=== PATIENT | male | born 1955 | race Caucasian/White ===

== ENCOUNTER 2020-02-14 03:16 | Inpatient (IN) | payer MEDICARE, OTHER ==
[~2020-02-14] VITALS: Ht 188 cm; Wt 74.0 kg
[2020-02-14] VITALS (26 sets, daily range): BP systolic 113–175; BP diastolic 0–75
[2020-02-14 03:50] LABS: BASO % 0 % (0-3); EOS # 0.1 x10^3/uL (0.0-0.7); EOS % 1 % (0-3); HEMATOCRIT 40.4 % (39.0-53.0); HEMOGLOBIN 13.6 g/dL (13.0-17.5); LYMPH # 1.6 x10^3/uL (1.0-4.8); LYMPH % 14 % (24-48); MEAN CORPUSCULAR HEMOGLOBIN 30 pg (25-35); MEAN CORPUSCULAR HGB CONC 34 g/dL (31-37); MEAN CORPUSCULAR VOLUME 88 fL (79-100); MONO % 9 % (0-9); NEUT # 8.6 x10^3/uL (1.8-7.7); NEUT % 76 % (31-73); PLATELET COUNT 226 x10^3/uL (140-400); RED BLOOD COUNT 4.58 x10^6/uL (4.30-5.70); RED CELL DISTRIBUTION WIDTH 13.9 % (11.5-14.5); WHITE BLOOD COUNT 11.3 x10^3/uL (4.0-11.0)
--- NOTE | 2020-02-14 03:52 | RAD ---
STUDY: CT head without contrast INDICATION: Left-sided weakness. COMPARISON: None. TECHNIQUE: Axial CT imaging through the head without the use of intravenous contrast. Sagittal and coronal reformats were obtained. One or more of the following individualized dose reduction techniques were utilized for this examination: 1. Automated exposure control 2. Adjustment of the mA and/or kV according to patient size 3. Use of iterative reconstruction technique. FINDINGS: Acute intraparenchymal hematoma centered within the right thalamus measuring approximately 3.1 cm transverse by 2.5 cm AP by 3.6 cm craniocaudal for a volume of around 14 cc. Intraventricular extension of hemorrhage seen within the significant portion of the right lateral ventricle as well as within the third ventricle, cerebral aqueduct and fourth ventricle. Asymmetric dilatation of the right lateral ventricle temporal horn. The hematoma and associated edema mildly effaces the third ventricle and deviates it to the left and there is also mass effect at the foramen of Prieto. Intracranial atherosclerotic calcifications. Patchy white matter low-attenuation is nonspecific but likely represents the sequela of chronic microvascular ischemic change. IMPRESSION: Acute intraparenchymal hematoma centered within the right thalamus with a volume of approximately 14 cc. Intraventricular extension of hemorrhage filling much of the right lateral ventricle and extending downwards through the fourth ventricle. The hematoma and associated edema exert mass effect on the foramen of Prieto and a portion of the third ventricle. There is asymmetric dilatation of the right lateral ventricle temporal horn in keeping with developing hydrocephalus. FOR INTERNAL CODING PURPOSES Critical result: Findings discussed with MARKO MATAMOROS on 02/14/2020 3:32 AM. RESULT CODE: (C) Electronically signed by: ZACARIAS VÁSQUEZ MD (02/14/2020 3:49 AM) [id number]
[2020-02-14 04:00] LABS: CALCIUM 8.9 mg/dL (8.5-10.1); GFR 75.2; PROTHROMBIN TIME PATIENT 12.8 SEC (11.7-14.0)
[2020-02-14] MEDS ORDERED: ONDANSETRON PF 4 MG/2 ML VIAL. IVP ONE (04:00)
[2020-02-14] MEDS ORDERED: METOCLOPRAMIDE HCL 10 MG/2 ML VIAL. ONE (04:00)
[2020-02-14] MEDS ORDERED: HYDROmorphone 2 MG/ML VIAL ONE (04:02)
[2020-02-14] MEDS ORDERED: diphenhydrAMINE 50 MG/ML VIAL ONE (04:02)
[2020-02-14 04:06] LABS: ALBUMIN 3.3 g/dL (3.4-5.0); ALBUMIN/GLOBULIN RATIO 0.8 (1.0-1.7); TOTAL BILIRUBIN 0.4 mg/dL (0.2-1.0); TOTAL PROTEIN 7.3 g/dL (6.4-8.2)
[2020-02-14] MEDS ORDERED: LIDOCAINE 1% Multi-Dose 20 ML VIAL. ONE (04:11)
--- NOTE | 2020-02-14 04:37 | PHYS DOC ---
Past Medical History Past Medical History: CVA, High Cholesterol Past Surgical History: Other Additional Past Surgical Histo: HERNIA REPAIR Smoking Status: Current Every Day Smoker Alcohol Use: None General Adult EDM: Chief Complaint: NEURO SYMPTOMS/DEFICITS HPI: HPI: The history was obtained from the patient and EMS. Patient is a 64-year-old male with PMH ischemic stroke who presents with a chief complaint of headache and weakness. Per EMS the patient was last known well was 12:00 AM. Appr oximately 3 hours prior to arrival. They state that the patient went to bed around midnight. He woke up at 1230 with a severe headache. He went back to sleep and woke up again approximately half hour prior to arrival. He continued have a severe headache. They state the patient was noted to have left upper extremity left lower extremity weakness. He also noted some facial asymmetry post present. Patient states he does not take any blood thinners. He states he has had a severe headache currently. Denies any falls or trauma. Denies any neck pain. No other complaints with the patient. Review of Systems: Review of Systems: Constitutional: Denies fever or chills. [] Eyes: Denies change in visual acuity. [] HENT: Denies nasal congestion or sore throat. [] Respiratory: Denies cough or shortness of breath. [] Cardiovascular: Denies chest pain or edema. [] GI: Denies abdominal pain, nausea, vomiting, bloody stools or diarrhea. [] : Denies dysuria. [] Musculoskeletal: Denies back pain or joint pain. [] Integument: Denies rash. [] Neurologic: Positive for headache and weakness Endocrine: Denies polyuria or polydipsia. [] Lymphatic: Denies swollen glands. [] Psychiatric: Denies depression or anxiety. [] Heart Score: Risk Factors: Risk Factors: DM, Current or recent (<one month) smoker, HTN, HLP, family history of CAD, obesity. Risk Scores: Score 0 - 3: 2.5% MACE over next 6 weeks - Discharge Home Score 4 - 6: 20.3% MACE over next 6 weeks - Admit for Clinical Observation Score 7 - 10: 72.7% MACE over next 6 weeks - Early Invasive Strategies Current Medications: Current Medications Medications (Trade) Dose Ordered Sig/Fabricio Start Time Stop Time Status Last Admin Dose Admin Diphenhydramine HCl (Benadryl) 50 mg STK-MED ONCE 02/14/20 04:02 02/14/20 04:02 DC Hydromorphone HCl (Dilaudid) 2 mg STK-MED ONCE 02/14/20 04:02 02/14/20 04:03 DC Lidocaine HCl (Lidocaine 1% 20ml Vial) 20 ml STK-MED ONCE 02/14/20 04:11 02/14/20 04:12 DC Metoclopramide HCl (Reglan Vial) 10 mg STK-MED ONCE 02/14/20 04:00 02/14/20 04:00 DC Nicardipine HCl 50 mg/Sodium Chloride 250 ml @ 12.5 mls/hr CONT PRN 02/14/20 03:30 02/14/20 03:48 12.5 MLS/HR Ondansetron HCl (Zofran) 8 mg 1X ONCE 02/14/20 04:00 02/14/20 04:01 DC 02/14/20 03:48 8 MG Allergies: Allergies: Allergies Coded Allergies Type Severity Reaction Last Updated Verified Penicillins Allergy Severe Rash 02/14/20 Yes Physical Exam: PE: Constitutional: Well developed, well nourished, no acute distress, non-toxic a ppearance. [] HENT: Normocephalic, atraumatic, bilateral external ears normal, oropharynx moist, no oral exudates, nose normal. [] Eyes: PERRLA, EOMI, conjunctiva normal, no discharge. [] Neck: Normal range of motion, no tenderness, supple, no stridor. [] Cardiovascular:Heart rate regular rhythm, no murmur [] Lungs & Thorax: Bilateral breath sounds clear to auscultation [] Abdomen: Bowel sounds normal, soft, no tenderness, no masses, no pulsatile masses. [] Skin: Warm, dry, no erythema, no rash. [] Back: No tenderness, no CVA tenderness. [] Extremities: No tenderness, no cyanosis, no clubbing, ROM intact, no edema. [] Neurologic: GCS15 Psychologic: Affect normal, judgement normal, mood normal. [] 1A: Level of consciousness Alert and keenly responsive 0 Arouses to minor stimulation +1 Requires repeated stimulation to arouse +2 Movements to pain +2 Postures are unresponsive +3 1B: Ask month and age Both questions were answered correctly 0 1 question right +1 0 questions were +2 Dysarthric/intubated/trauma/language barrier +1 Aphasic + 2 1C: "Blink eyes and squeeze hands" Performs both tasks 0 Performs one task +1 Perform 0 tasks +2 2: Horizontal extraocular movements Normal 0 Partial gaze palsy: Can be overcome +1 Partial gaze palsy: Corrects with oculocephalic reflex +1 Forced gaze palsy: Cannot be overcome +2 3: Visual bello No visual loss 0 Partial hemianopia +1 Complete hemianopia +2 Patient is bilaterally blind +3 Bilateral hemianopsia +3 4: Facial palsy Normal symmetry 0 Minor paralysis +1 Partial paralysis + 2 Unilateral complete paralysis +3 Bilateral complete paralysis +3 5A: Left arm motor drift No drift for 10 seconds 0 Drift, but does not hit bed + 1 Drift, hits bed + 2 Some effort against gravity +2 No effort against gravity +3 No movement +4 Amputation/joint fusion 0 5B: Right arm motor drift No drift for 10 seconds 0 Drift, but does not hit bed + 1 Drift, hits bed + 2 Some effort against gravity +2 No effort against gravity +3 No movement +4 Amputation/joint fusion 0 6A: Left leg motor drift No drift for 10 seconds 0 Drift, but does not hit bed + 1 Drift, hits bed + 2 Some effort against gravity +2 No effort against gravity +3 No movement +4 Amputation/joint fusion 0 6B: Right leg motor drift No drift for 10 seconds 0 Drift, but does not hit bed + 1 Drift, hits bed + 2 Some effort against gravity +2 No effort against gravity +3 No movement +4 Amputation/joint fusion 0 7: Limb ataxia No ataxia 0 Ataxia in one limb +1 Ataxia in 2 limbs +2 Does not understand 0 Paralyzed 0 Amputation/joint fusion 0 8: Sensation Normal; no sensory loss 0 Mild to moderate loss +1 Complete loss +2 No response and quadriplegic +2 Coma unresponsive +2 9: Language/aphasia Normal; no aphasia 0 Mild to moderate aphasia +1 Severe aphasia + 2 Mute/global aphasia +3 Coma/unresponsive +3 10: Dysarthria Normal 0 Mild to moderate dysarthria +1 Severe dysarthria +2 Mute/anrthric +2 Intubated/unable to test 0 11: Extinction No abnormality 0 Visual/tactile/auditory/spatial/personal inattention +1 Extinction to bilateral simultaneous stimulus +1 Profound joselin-inattention +2 Extinction to greater than 1 modality +2 Current Patient Data: Labs: Laboratory Tests Test 02/14/20 03:30 White Blood Count 11.3 x10^3/uL (4.0-11.0) H Red Blood Count 4.58 x10^6/uL (4.30-5.70) Hemoglobin 13.6 g/dL (13.0-17.5) Hematocrit 40.4 % (39.0-53.0) Mean Corpuscular Volume 88 fL (79-100) Mean Corpuscular Hemoglobin 30 pg (25-35) Mean Corpuscular Hemoglobin Concent 34 g/dL (31-37) Red Cell Distribution Width 13.9 % (11.5-14.5) Platelet Count 226 x10^3/uL (140-400) Neutrophils (%) (Auto) 76 % (31-73) H Lymphocytes (%) (Auto) 14 % (24-48) L Monocytes (%) (Auto) 9 % (0-9) Eosinophils (%) (Auto) 1 % (0-3) Basophils (%) (Auto) 0 % (0-3) Neutrophils # (Auto) 8.6 x10^3/uL (1.8-7.7) H Lymphocytes # (Auto) 1.6 x10^3/uL (1.0-4.8) Monocytes # (Auto) 1.0 x10^3/uL (0.0-1.1) Eosinophils # (Auto) 0.1 x10^3/uL (0.0-0.7) Basophils # (Auto) 0.0 x10^3/uL (0.0-0.2) Prothrombin Time 12.8 SEC (11.7-14.0) Prothrombin Time INR 1.0 (0.8-1.1) Sodium Level 140 mmol/L (136-145) Potassium Level 4.0 mmol/L (3.5-5.1) Chloride Level 106 mmol/L (98-107) Carbon Dioxide Level 28 mmol/L (21-32) Anion Gap 6 (6-14) Blood Urea Nitrogen 18 mg/dL (8-26) Creatinine 1.0 mg/dL (0.7-1.3) Estimated GFR (Cockcroft-Gault) 75.2 BUN/Creatinine Ratio 18 (6-20) Glucose Level 119 mg/dL (70-99) H Calcium Level 8.9 mg/dL (8.5-10.1) Total Bilirubin 0.4 mg/dL (0.2-1.0) Aspartate Amino Transferase (AST) 17 U/L (15-37) Alanine Aminotransferase (ALT) 18 U/L (16-63) Alkaline Phosphatase 109 U/L (46-116) Troponin I Quantitative < 0.017 ng/mL (0.000-0.055) Total Protein 7.3 g/dL (6.4-8.2) Albumin 3.3 g/dL (3.4-5.0) L Albumin/Globulin Ratio 0.8 (1.0-1.7) L Laboratory Tests 02/14/20 03:30 Laboratory Tests 02/14/20 03:30 Vital Signs: Vital Signs Date Time Temp Pulse Resp B/P (MAP) Pulse Ox O2 Delivery O2 Flow Rate FiO2 02/14/20 03:50 97.4 19 227/102 (143) 94 Room Air 97.4 EKG: EKG: EKG consistent with normal sinus rhythm. Ventricular rate 75 bpm. [place] normal. Flipped T waves noted in lead III. No acute ST segment elevation appreciated. [] Radiology/Procedures: Radiology/Procedures: [][facility] [address] [place] [address] IMAGING REPORT Signed PATIENT: ELLA MUÑIZ ACCOUNT: [id number] : 1955 LOCATION: ER AGE: 64 SEX: M EXAM STATUS: REG ER ORD. PHYSICIAN: KILLIAN NOVAK DO REASON: LUE weakness. LLE weakness. hemineglect on left PROCEDURE: CT CODE STROKE HEAD WO STUDY: CT head without contrast INDICATION: Left-sided weakness. COMPARISON: None. TECHNIQUE: Axial CT imaging through the head without the use of intravenous contrast. Sagittal and coronal reformats were obtained. One or more of the following individualized dose reduction techniques were utilized for this examination: 1. Automated exposure control 2. Adjustment of the mA and/or kV according to patient size 3. Use of iterative reconstruction technique. FINDINGS: Acute intraparenchymal hematoma centered within the right thalamus measuring approximately 3.1 cm transverse by 2.5 cm AP by 3.6 cm craniocaudal for a volume of around 14 cc. Intraventricular extension of hemorrhage seen within the significant portion of the right lateral ventricle as well as within the third ventricle, cerebral aqueduct and fourth ventricle. Asymmetric dilatation of the right lateral ventricle temporal horn. The hematoma and associated edema mildly effaces the third ventricle and deviates it to the left and there is also mass effect at the foramen of Prieto. Intracranial atherosclerotic calcifications. Patchy white matter low-attenuation is nonspecific but likely represents the sequela of chronic microvascular ischemic change. IMPRESSION: Acute intraparenchymal hematoma centered within the right thalamus with a volume of approximately 14 cc. Intraventricular extension of hemorrhage filling much of the right lateral ventricle and extending downwards through the fourth ventricle. The hematoma and associated edema exert mass effect on the foramen of Prieto and a portion of the third ventricle. There is asymmetric dilatation of the right lateral ventricle temporal horn in keeping with developing hydrocephalus. FOR INTERNAL CODING PURPOSES Critical result: Findings discussed with KILLIAN NOVAK on 02/14/2020 3:32 AM. RESULT CODE: (C) Electronically signed by: ZACARIAS VÁSQUEZ MD (02/14/2020 3:49 AM) [id number] DICTATED and SIGNED BY: ZACARIAS VÁSQUEZ MD DATE: 02/14/20 0349 Radial arterial line placement procedure note Left radial arterial line placement. Indication: Hemodynamic monitoring Physician: Dr. Novak Consent: From patient Procedure: Timeout performed. Nigel's test performed on the left radial artery and showed good collaterals. The area was then prepped and draped in sterile fashion. Using the Arrow 20-gauge radial artery cath set, the artery was cannulated with ultrasound guidance. The catheter was threaded over the guidewire via Seldinger technique and sutured in place with silk sutures; the area then cleansed again and dressed with tape to secure. Tegaderm dressing als o placed. The arterial line tubing was placed to the arterial line. The patient status is unchanged. Patient tolerated the procedure without any complications. The hand is neurovascular intact immediately post procedure. Estimated blood loss minimal. Endotracheal Intubation Procedure Note Procedure: Endotracheal intubation Indication: Acute Respiratory Failure secondary to neurologic injury Consent: Verbal obtained from family Procedure: The patient was placed in the supine position and pre-oxygenated with 100% oxygen via BVM. Sedation was given with etomidate. Using a glide sc ope for blade, the cords were visualized; an 7.5 tube was able to be passed through the cords with direct visualization. Condensation was seen in the tube; bilateral breath-sounds were present, with none auscultated over the abdomen; good color change was present on EtCO2 detector. A CXR is ordered to cofirm placement. The ETT was secured at 24 cm at the lips. Mechanical ventilation is initiated at A/C, Vt 500 ml, 100% FiO2, rate 22, PEEP 5. The patient tolerated procedure without immediate complication. Killian Novak, Course & Med Decision Making: Course & Med Decision Making Pertinent Labs and Imaging studies reviewed. (See chart for details) Patient is a 64-year-old male who presents with chief complaint of headache and left-sided weakness. Initial vital signs notable for hypertension. CT imaging reveals intermingled hemorrhage with right ventricular involvement. I did discuss the case specifically with the neurosurgical PA Rosa. She spoke directly with neurosurgeon Dr. Aguayo. No emergent indication for EVD or operative intervention. Patient's blood pressure was well controlled nicardipine. No anticoagulation usage needing reversal. The mode pain will be deferred per the recommendations of neurosurgery. Patients head of bed was placed at 30 degrees. He did have his pain treated with IV Reglan, Benadryl, and Dilaudid. His GCS remained 15 while in the emergency department. He showed no signs of clinical, neuro, or respiratory deterioration. Left radial art line was placed for ICU usage and close hemodynamic monitoring. She tolerated this procedure well without difficulty. See procedure note for further details. Patient is appropriate to stay at our facility per Dr. Vásquez. He will be hospitalized to the intensive care unit. Family was updated on plan of care. 0445: Patient's GCS did slowly deteriorate. He became more somnolent. He did appear to become more a phasic. I did discuss my concern for his ability to protect his airway at this point. Family did provide consent to intubate the patient. See procedure note for further details. Patient's blood pressure is been well controlled. Neurosurgery was updated on the patient's status change. He will be hospitalized to our ICU for further care. Dragon Disclaimer: Dragon Disclaimer: This electronic medical record was generated, in whole or in part, using a voice recognition dictation system. Departure Departure Impression: Primary Impression: Intraparenchymal hemorrhage of brain Disposition: ADMITTED INPATIENT Condition: STABLE Referrals: NO PCP (PCP) Justicifation of Admission Dx: Justifications for Admission: Justification of Admission Dx: Yes Acute Hemorrhagic Stroke: Acute Hemorrhagic Stroke KILLIAN NOVAK DO Feb 14, 2020 04:37
[2020-02-14] MEDS ORDERED: MORPHINE SULFATE 4 MG/ML VIAL. IV PRN (04:45)
[2020-02-14] MEDS ORDERED: ONDANSETRON PF 4 MG/2 ML VIAL. IV PRN (04:45)
[2020-02-14] MEDS ORDERED: fentaNYL PF VIAL 100 MCG/2 ML VIAL IVP ONE ×3 (05:00→07:30)
[2020-02-14] MEDS ORDERED: ETOMIDATE 20 MG/10 ML VIAL. IV ONE (05:00)
[2020-02-14] MEDS ORDERED: ROCURONIUM 50 MG/5 ML VIAL. IV ONE (05:00)
[2020-02-14] MEDS ORDERED: PROPOFOL 10 MG/ML (20ML) VIAL. IV ONE ×2 (05:02→05:30)
[2020-02-14] MEDS ORDERED: PROPOFOL 50 ML IV ONE (05:03)
[2020-02-14] MEDS: PROPOFOL 100 ML IV PRN ×2 (06:38→11:30)
[2020-02-14] MEDS ORDERED: LIDOCAINE 1% PF 2 ML VIAL. ONE (06:43)
[2020-02-14] MEDS: VANCOMYCIN 1GM IVPB FOR OMNI 250 ML IV PRN ×2 (06:46→06:48)
[2020-02-14] MEDS ORDERED: ceFAZolin 2GM PREMIX 2 GM/50 ML BAG IV ONE (07:00)
--- NOTE | 2020-02-14 07:20 | NUR ---
Admission Note: Patient admitted to room 108 from ED. Pt sedated and intubated. CLINICAL PROGRAM CONSULTANT Rosa and Dr. Jones here upon transfer from ED to place drain. Pt currently on Cardene gtt, propofol gtt. L radial A line in place, pressure bag applied. Sebastian placed in ED and draining clear yellow urine. SR on monitor.
[2020-02-14] MEDS ORDERED: fentaNYL PF VIAL 100 MCG/2 ML VIAL IV PRN ×2 (07:30)
--- NOTE | 2020-02-14 07:52 | RAD ---
CHEST AP ONLY, KUB INDICATION: Reason: confirm ET/NG / Spl. Instructions: / History: . COMPARISON STUDY: None. FINDINGS: Endotracheal tube terminus 5 cm above the mike. Enteric tube terminates in the stomach Lungs: Normal lung volume. Bibasilar heterogeneous opacities. The tracheobronchial tree and hilar structures are normal. Pleura: No pleural effusion or pneumothorax. Heart and Mediastinum: The cardiomediastinal silhouette is normal. The great vessels of the thorax are normal. Abdomen: No free air. No dilated large or small bowel. IMPRESSION: 1. Life-support devices as above. 2. Bibasilar heterogeneous opacities, which could represent subsegmental atelectasis, infection, or aspiration. Electronically signed by: Jai Lunsford MD (02/14/2020 7:49 AM) [id number]
--- NOTE | 2020-02-14 08:55 | PDOC1 ---
History and Physical Date of Admission Date of Admission DATE: 02/14/20 TIME: 08:55 Identification/Chief Complaint Chief Complaint ADMITTED TO ICU 64-year-old male with PMH ischemic stroke who presents with a chief complaint of headache and weakness. ACCORDING TO EMS the patient was last known well was 12:00 AM. Approximately 3 hours prior to arrival. patient went to bed around midnight. //woke up at 1230 with a severe headache. He went back to sleep and woke up again approximately half hour prior to arrival. continued have a severe headache. They state the patient was noted to have left upper extremity left lower extremity weakness.//noted some facial asymmetry Past Medical History Past Medical History Past Medical History Past Medical History: CVA, High Cholesterol Past Surgical History: Other Additional Past Surgical Histo: HERNIA REPAIR Smoking Status: Current Every Day Smoker Alcohol Use: None fhx copd Family History Family History: High Cholestrol, Hypertension Social History Smoke: No ALCOHOL: none Drugs: None Current Problem List Problem List Problems Medical Problems: (1) Intraparenchymal hemorrhage of brain Status: Acute Current Medications Current Medications Current Medications Nicardipine HCl 50 mg/Sodium Chloride 250 ml @ 12.5 mls/hr CONT PRN IV SEE I/O RECORD Last administered on 02/14/20at 03:48; Start 02/14/20 at 03:30 Ondansetron HCl (Zofran) 8 mg 1X ONCE IVP Last administered on 02/14/20at 03:48; Start 02/14/20 at 04:00; Stop 02/14/20 at 04:01; Status DC Metoclopramide HCl (Reglan Vial) 10 mg STK-MED ONCE .ROUTE ; Start 02/14/20 at 04:00; Stop 02/14/20 at 04:00; Status DC Diphenhydramine HCl (Benadryl) 50 mg STK-MED ONCE .ROUTE ; Start 02/14/20 at 04:02; Stop 02/14/20 at 04:02; Status DC Hydromorphone HCl (Dilaudid) 2 mg STK-MED ONCE .ROUTE ; Start 02/14/20 at 04:02; Stop 02/14/20 at 04:03; Status DC Lidocaine HCl (Lidocaine 1% 20ml Vial) 20 ml STK-MED ONCE .ROUTE ; Start 02/14/20 at 04:11; Stop 02/14/20 at 04:12; Status DC Ondansetron HCl (Zofran) 4 mg PRN Q8HRS PRN IV NAUSEA/VOMITING 1ST CHOICE; Start 02/14/20 at 04:45; Stop 02/15/20 at 04:44 Morphine Sulfate (Morphine Sulfate) 4 mg PRN Q2HR PRN IV SEVERE PAIN 7-10; Start 02/14/20 at 04:45; Stop 02/15/20 at 04:44 Rocuronium [place] (Zemuron) 100 mg 1X ONCE IV Last administered on 02/14/20at 04:56; Start 02/14/20 at 05:00; Stop 02/14/20 at 05:01; Status DC Etomidate (Amidate) 20 mg 1X ONCE IV Last administered on 02/14/20at 04:56; Start 02/14/20 at 05:00; Stop 02/14/20 at 05:01; Status DC Fentanyl Citrate (Fentanyl 2ml Vial) 100 mcg 1X ONCE IVP Last administered on 02/14/20at 04:55; Start 02/14/20 at 05:00; Stop 02/14/20 at 05:01; Status DC Propofol (Diprivan) 200 mg STK-MED ONCE IV ; Start 02/14/20 at 05:02; Stop 02/14/20 at 05:03; Status DC Propofol 50 ml @ As Directed STK-MED ONCE IV ; Start 02/14/20 at 05:03; Stop 02/14/20 at 05:03; Status DC Propofol (Diprivan) 200 mg 1X ONCE IV ; Start 02/14/20 at 05:30; Stop 02/14/20 at 05:31; Status DC Vancomycin HCl 250 ml @ 250 mls/hr PREOP PRN PRN IV PREOP Last administered on 02/14/20at 06:48; Start 02/14/20 at 06:00; Stop 02/15/20 at 05:59 Propofol 100 ml @ 0 mls/hr CONT PRN IV SEE I/O RECORD Last administered on 02/14/20at 06:38; Start 02/14/20 at 06:30 Fentanyl Citrate (Fentanyl 2ml Vial) 50 mcg 1X ONCE IVP Last administered on 02/14/20at 06:48; Start 02/14/20 at 07:00; Stop 02/14/20 at 07:01; Status DC Lidocaine HCl (Xylocaine-Mpf 1% 2ml Vial) 2 ml STK-MED ONCE .ROUTE ; Start 02/14/20 at 06:43; Stop 02/14/20 at 06:43; Status DC Fentanyl Citrate (Fentanyl 2ml Vial) 50 mcg 1X ONCE IVP Last administered on 02/14/20at 07:23; Start 02/14/20 at 07:30; Stop 02/14/20 at 07:31; Status DC Fentanyl Citrate 30 ml @ 2.5 mls/hr CONT PRN IV SEE PROTOCOL Last administered on 02/14/20at 07:43; Start 02/14/20 at 07:30 Fentanyl Citrate (Fentanyl 2ml Vial) 25 mcg PRN Q1HR PRN IV SEE COMMENTS; Start 02/14/20 at 07:30 Fentanyl Citrate (Fentanyl 2ml Vial) 50 mcg PRN Q1HR PRN IV SEE COMMENTS; Start 02/14/20 at 07:30 Allergies Allergies: Coded Allergies: Penicillins (Verified Allergy, Severe, Rash, 02/14/20) ROS Review of System Constitutional: Denies fever or chills. [] Eyes: Denies change in visual acuity. [] HENT: Denies nasal congestion or sore throat. [] Respiratory: Denies cough or shortness of breath. [] Cardiovascular: Denies chest pain or edema. [] GI: Denies abdominal pain, nausea, vomiting, bloody stools or diarrhea. [] : Denies dysuria. [] Musculoskeletal: Denies back pain or joint pain. [] Integument: Denies rash. [] Neurologic: Positive for headache and weakness Endocrine: Denies polyuria or polydipsia. [] Lymphatic: Denies swollen glands. [] Psychiatric: Denies depression or anxiety. [] prior to intubation Physical Exam Physical Exam non-toxic appearance. [] HENT: Normocephalic, atraumatic, bilateral external ears normal, oropharynx moist, no oral exudates, nose normal. [] Eyes: PERRLA, EOMI, conjunctiva normal, no discharge. [] Neck: Normal range of motion, no tenderness, supple, no stridor. [] Cardiovascular:Heart rate regular rhythm, no murmur [] Lungs & Thorax: Bilateral breath sounds clear to auscultation [] Abdomen: Bowel sounds normal, soft, no tenderness, no masses, no pulsatile masses. [] Skin: Warm, dry, no erythema, no rash. [] Back: No tenderness, no CVA tenderness. [] Extremities: No tenderness, no cyanosis, no clubbing, ROM intact, no edema. [] Neurologic: GCS15 Vitals Vitals Vital Signs Date Time Temp Pulse Resp B/P (MAP) Pulse Ox O2 Delivery O2 Flow Rate FiO2 02/14/20 07:00 62 16 165/73 (103) 100 Ventilator 02/14/20 06:15 98.2 98.2 Labs Labs Laboratory Tests Test 02/14/20 03:21 02/14/20 03:30 Glucose (Fingerstick) 119 mg/dL (70-99) White Blood Count 11.3 x10^3/uL (4.0-11.0) Red Blood Count 4.58 x10^6/uL (4.30-5.70) Hemoglobin 13.6 g/dL (13.0-17.5) Hematocrit 40.4 % (39.0-53.0) Mean Corpuscular Volume 88 fL (79-100) Mean Corpuscular Hemoglobin 30 pg (25-35) Mean Corpuscular Hemoglobin Concent 34 g/dL (31-37) Red Cell Distribution Width 13.9 % (11.5-14.5) Platelet Count 226 x10^3/uL (140-400) Neutrophils (%) (Auto) 76 % (31-73) Lymphocytes (%) (Auto) 14 % (24-48) Monocytes (%) (Auto) 9 % (0-9) Eosinophils (%) (Auto) 1 % (0-3) Basophils (%) (Auto) 0 % (0-3) Neutrophils # (Auto) 8.6 x10^3/uL (1.8-7.7) Lymphocytes # (Auto) 1.6 x10^3/uL (1.0-4.8) Monocytes # (Auto) 1.0 x10^3/uL (0.0-1.1) Eosinophils # (Auto) 0.1 x10^3/uL (0.0-0.7) Basophils # (Auto) 0.0 x10^3/uL (0.0-0.2) Prothrombin Time 12.8 SEC (11.7-14.0) Prothromb Time International Ratio 1.0 (0.8-1.1) Sodium Level 140 mmol/L (136-145) Potassium Level 4.0 mmol/L (3.5-5.1) Chloride Level 106 mmol/L (98-107) Carbon Dioxide Level 28 mmol/L (21-32) Anion Gap 6 (6-14) Blood Urea Nitrogen 18 mg/dL (8-26) Creatinine 1.0 mg/dL (0.7-1.3) Estimated GFR (Cockcroft-Gault) 75.2 BUN/Creatinine Ratio 18 (6-20) Glucose Level 119 mg/dL (70-99) Calcium Level 8.9 mg/dL (8.5-10.1) Total Bilirubin 0.4 mg/dL (0.2-1.0) Aspartate Amino Transf (AST/SGOT) 17 U/L (15-37) Alanine Aminotransferase (ALT/SGPT) 18 U/L (16-63) Alkaline Phosphatase 109 U/L (46-116) Troponin I Quantitative < 0.017 ng/mL (0.000-0.055) Total Protein 7.3 g/dL (6.4-8.2) Albumin 3.3 g/dL (3.4-5.0) Albumin/Globulin Ratio 0.8 (1.0-1.7) Laboratory Tests Test 02/14/20 03:21 02/14/20 03:30 Glucose (Fingerstick) 119 mg/dL (70-99) White Blood Count 11.3 x10^3/uL (4.0-11.0) Red Blood Count 4.58 x10^6/uL (4.30-5.70) Hemoglobin 13.6 g/dL (13.0-17.5) Hematocrit 40.4 % (39.0-53.0) Mean Corpuscular Volume 88 fL (79-100) Mean Corpuscular Hemoglobin 30 pg (25-35) Mean Corpuscular Hemoglobin Concent 34 g/dL (31-37) Red Cell Distribution Width 13.9 % (11.5-14.5) Platelet Count 226 x10^3/uL (140-400) Neutrophils (%) (Auto) 76 % (31-73) Lymphocytes (%) (Auto) 14 % (24-48) Monocytes (%) (Auto) 9 % (0-9) Eosinophils (%) (Auto) 1 % (0-3) Basophils (%) (Auto) 0 % (0-3) Neutrophils # (Auto) 8.6 x10^3/uL (1.8-7.7) Lymphocytes # (Auto) 1.6 x10^3/uL (1.0-4.8) Monocytes # (Auto) 1.0 x10^3/uL (0.0-1.1) Eosinophils # (Auto) 0.1 x10^3/uL (0.0-0.7) Basophils # (Auto) 0.0 x10^3/uL (0.0-0.2) Prothrombin Time 12.8 SEC (11.7-14.0) Prothromb Time International Ratio 1.0 (0.8-1.1) Sodium Level 140 mmol/L (136-145) Potassium Level 4.0 mmol/L (3.5-5.1) Chloride Level 106 mmol/L (98-107) Carbon Dioxide Level 28 mmol/L (21-32) Anion Gap 6 (6-14) Blood Urea Nitrogen 18 mg/dL (8-26) Creatinine 1.0 mg/dL (0.7-1.3) Estimated GFR (Cockcroft-Gault) 75.2 BUN/Creatinine Ratio 18 (6-20) Glucose Level 119 mg/dL (70-99) Calcium Level 8.9 mg/dL (8.5-10.1) Total Bilirubin 0.4 mg/dL (0.2-1.0) Aspartate Amino Transf (AST/SGOT) 17 U/L (15-37) Alanine Aminotransferase (ALT/SGPT) 18 U/L (16-63) Alkaline Phosphatase 109 U/L (46-116) Troponin I Quantitative < 0.017 ng/mL (0.000-0.055) Total Protein 7.3 g/dL (6.4-8.2) Albumin 3.3 g/dL (3.4-5.0) Albumin/Globulin Ratio 0.8 (1.0-1.7) Images Images STUDY: CT head without contrast INDICATION: Left-sided weakness. COMPARISON: None. TECHNIQUE: Axial CT imaging through the head without the use of intravenous contrast. Sagittal and coronal reformats were obtained. One or more of the following individualized dose reduction techniques were utilized for this examination: 1. Automated exposure control 2. Adjustment of the mA and/or kV according to patient size 3. Use of iterative reconstruction technique. FINDINGS: Acute intraparenchymal hematoma centered within the right thalamus measuring approximately 3.1 cm transverse by 2.5 cm AP by 3.6 cm craniocaudal for a volume of around 14 cc. Intraventricular extension of hemorrhage seen within the significant portion of the right lateral ventricle as well as within the third ventricle, cerebral aqueduct and fourth ventricle. Asymmetric dilatation of the right lateral ventricle temporal horn. The hematoma and associated edema mildly effaces the third ventricle and deviates it to the left and there is also mass effect at the foramen of Prieto. Intracranial atherosclerotic calcifications. Patchy white matter low-attenuation is nonspecific but likely represents the sequela of chronic microvascular ischemic change. IMPRESSION: Acute intraparenchymal hematoma centered within the right thalamus with a volume of approximately 14 cc. Intraventricular extension of hemorrhage filling much of the right lateral ventricle and extending downwards through the fourth ventricle. The hematoma and associated edema exert mass effect on the foramen of Prieto and a portion of the third ventricle. There is asymmetric dilatation of the right lateral ventricle temporal horn in keeping with developing hydrocephalus. FOR INTERNAL CODING PURPOSES Critical result: Findings discussed with MARKO MATAMOROS on 02/14/2020 3:32 AM. RESULT CODE: (C) Electronically signed by: ZACARIAS VÁSQUEZ MD (02/14/2020 3:49 AM) [id number] DICTATED and SIGNED BY: ZACARIAS VÁSQUEZ MD VTE Prophylaxis Ordered VTE Prophylaxis Devices: Yes VTE Pharmacological Prophylaxi: Contraindicated Assessment/Plan Assessment/Plan IMPRESSION: Intraparenchymal hemorrhage of brain Acute intraparenchymal hematoma centered within the right thalamus with a volume of approximately 14 cc. Intraventricular extension of hemorrhage filling much of the right lateral ventricle and extending downwards through the fourth ventricle.hematoma and associated edema exert mass effect on the foramen of Prieto and a portion of the third ventricle. dilatation of the right lateral ventricle temporal horn developing hydrocephalus. PLAN ADMIT ICU Consult neurosurgery vent support consult pulmonary consult neurology Justifications for Admission Other Justification FULBRIGHT,ROSA W MD Feb 14, 2020 08:55
--- NOTE | 2020-02-14 09:44 | CONS ---
DATE OF CONSULTATION: 02/14/2020 REASON FOR CONSULTATION: Intracerebral and intraventricular hemorrhage. PROCEDURE PERFORMED: Right frontal ventriculostomy placement. HISTORY OF PRESENT ILLNESS: The patient is a 64-year-old man who presented with headache and weakness. When he was evaluated in the Emergency Room, he had a significant left-sided weakness in upper and lower extremities. There was also some facial asymmetry on the left. He is not taking any anticoagulants. A scan was obtained, which showed a right-sided basal ganglia hemorrhage of moderate to large sized with extension into the ventricular system, primarily on the right, but also within the third and fourth ventricles. He was scheduled to be brought over to the ICU when he deteriorated and required intubation. I arrived in the ICU as he was being brought here and after reviewing the scans, felt that a ventriculostomy would be in order. I did speak with the family and received approval. He was given vancomycin prior to the procedure. I placed a standard right frontal ventriculostomy although I did direct further to the left in order to enter the left ventricle because the right ventricle was filled with blood. There was spontaneous egress of spinal fluid. The catheter was connected to the monitor and the pressure was about 9 cm of water. At any rate, during the time of his evaluation in the Intensive Care Unit, his pupils were equal and reactive as well his cough and gag were intact. He would move his right upper and right lower extremity, his right upper extremity would move purposefully, for example, trying to grasp the endotracheal tube. He did have severe hypertension in the Emergency Room and was placed on Cardene to bring that under control. PLAN: At this point, he is stable. With the ventriculostomy, the pressure is about 9 cm of water. He is set to drain. He is sedated. We will obtain a CT scan to evaluate placement of the ventricular catheter and then potentially we will be able to wean the ventilator as tolerated. KELLI JOY MD DR: JOEL/dean JOB#: [id number] / [id number] RONALD
[2020-02-14 09:50] LABS: BASE EXCESS ABG -1 mmol/L (-3-3); HCO3 ABG 25 mmol/L (21-28); PCO2 ABG 43 mmHg (35-46); PO2 ABG 450 mmHg (65-108); SAT O2 ABG 99 % (92-99)
[2020-02-14 09:54] LABS: FIO2 ABG 100
--- NOTE | 2020-02-14 10:11 | RAD ---
CT HEAD WO CONTRAST History:Intracranial hemorrhage Comparison: Exam earlier the same day at 3:23 AM, this exam timed 8:33 AM Technique: Noncontrast CT imaging was performed of the head. Exposure: One or more of the following individualized dose reduction techniques were utilized for this examination: 1. Automated exposure control 2. Adjustment of the mA and/or kV according to patient size 3. Use of iterative reconstruction technique. Findings: There is now a right transfrontal shunt with the tip terminating to the left of midline in the left superior prepontine cistern region. There is again intraventricular hemorrhage filling the right lateral ventricle and third ventricle, also extent to the fourth ventricle. There is increased intraventricular hemorrhage in the left lateral ventricle. There is persistent, somewhat increased moderate ventriculomegaly/hydrocephalus. For example right lateral ventricle measures about 1.6 cm versus previously 1.5 cm. Left lateral ventricle measures about 1.7 cm versus previously about 1.2 cm. There is again dilatation of the temporal horns bilaterally right greater than left, also greater. There is again hyperdense parenchymal hemorrhage in the right thalamus about 3.4 cm transverse by 2.8 cm AP, somewhat larger as previously 3.1 cm transverse by 2.2 cm AP. There is increased mild right to left midline shift now about 0.6 cm, previously about 0.3 to 0.4 cm. No new separate focus of parenchymal hemorrhage is identified. There is again low-density of the parenchyma about the right thalamic hemorrhage, evidence of vasogenic edema. There is endotracheal tube. Mastoid air cells are aerated. IMPRESSION: 1. There is now a right transfrontal shunt with the tip terminating in the left superior prepontine cistern region. Hydrocephalus has increased. Right lobe left midline shift has increased. There is increased intraventricular hemorrhage most notable in the left lateral ventricle. Right thalamic parenchymal hemorrhage is somewhat larger. Critical results were discussed with patient's nurse Yamilka at 02/14/2020 10:07 AM. Electronically signed by: Jai Nelson MD (02/14/2020 10:08 AM) [id number]
[2020-02-14 10:49] LABS: BILIRUBIN,URINE NEGATIVE (NEG); CLARITY,URINE CLEAR; COLOR,URINE YELLOW; NITRITE,URINE NEGATIVE (NEG); PROTEIN,URINE NEGATIVE (NEG-TRACE)
[2020-02-14 11:10] LABS: BACTERIA,URINE 0 /HPF (0-FEW); WBC,URINE 0 /HPF (0-4)
[2020-02-14] MEDS: POTASSIUM CL 20MEQ D5-0.45NACL 1,000 ML IV SCH (12:45)
--- NOTE | 2020-02-14 12:48 | NUR ---
Spoke with family regarding update on condition post ventriculostomy drain placement. Head CT was worsening, called by radiologist, notified Rosa MARSHMALLOW MACHINE WORKER with Dr. Jones who was already aware and that Dr. Jones was on his way to reposition the ventriculostomy drain. Drain was adjusted at bedside by Dr. Jones, repeat head CT ordered. Drain was zeroed to tragus of the ear, was adjusted by Dr. Jones at bedside, still draining for ICP >10. Also notified Dr. Jones of elevated urine output despite minimal input. Updated family via telephone contact. Notified [facility], referral number [id number], will follow patient from [facility] for now. Neurologically patient has changed throughout the shift. Patient started out the shift with a fixed left pupil but a sluggish right pupil, about the same size. Patient was able to withdraw to pain in all extremities besides the left upper extremity which was flaccid, now patient has an abnormal extensor response in the left hand and an abnormal flexor response in the right hand. The bilateral lower extremities cause a tremor in the legs and left arm with painful stimuli. Patient has no cough or gag reflexes, does not overbreathe the ventilator, but does have a corneal reflex. Will continue to monitor.
--- NOTE | 2020-02-14 14:16 | RAD ---
CT HEAD WO CONTRAST Date: 02/14/2020 11:23 AM Clinical Indication: Follow up ventricular catheter placement Comparison: 02/14/2020. Technique: 5 mm axial tomographic images were obtained of the head without contrast. These were viewed on brain and bone windows. One or more of the following dose reduction techniques were utilized: Automated exposure control (AEC), Adjustment of mA and/or kV according to patient size, Use of iterative reconstruction technique such as ASiR, CT scan done according to ALARA and image gently/image wisely Findings: Postsurgical changes of a right frontal approach ventricular shunt catheter with tip terminating in the midline near the suprasellar cistern. Stable configuration of the ventricles, with asymmetric dilatation of the right lateral ventricle temporal horn measuring 13 mm. Stable right basal ganglia acute intraparenchymal hemorrhage. Stable intraventricular extension of blood involving the right greater than left lateral ventricles, third ventricle, and fourth ventricle. Unchanged mass effect with 6 mm right left midline shift. Increased suprasellar cistern effacement. The visualized paranasal sinuses are normal. The visualized portions of the orbits and globes are normal. The mastoid air cells are clear. The biodiesel production technician topogram shows no lytic lesion or fracture. Impression: 1. Right frontal approach ventriculostomy as above. Stable ventricular configuration. 2. Stable right basal ganglia acute intraparenchymal hemorrhage with intraventricular extension. 3. Mass effect with sulcal effacement and increased suprasellar cistern effacement. Electronically signed by: Jai Lunsford MD (02/14/2020 2:13 PM) [id number]
--- NOTE | 2020-02-14 14:53 | PDOC ---
PULMONARY PROGRESS NOTES DATE: 02/14/20 TIME: 14:52 Vitals Vital Signs Date Time Temp Pulse Resp B/P (MAP) Pulse Ox O2 Delivery O2 Flow Rate FiO2 02/14/20 14:00 55 22 113/55 (74) 100 Ventilator 02/14/20 12:00 98.0 98.0 Labs Laboratory Tests Test 02/14/20 03:21 02/14/20 03:30 02/14/20 09:45 02/14/20 10:00 Glucose (Fingerstick) 119 mg/dL (70-99) White Blood Count 11.3 x10^3/uL (4.0-11.0) Red Blood Count 4.58 x10^6/uL (4.30-5.70) Hemoglobin 13.6 g/dL (13.0-17.5) Hematocrit 40.4 % (39.0-53.0) Mean Corpuscular Volume 88 fL (79-100) Mean Corpuscular Hemoglobin 30 pg (25-35) Mean Corpuscular Hemoglobin Concent 34 g/dL (31-37) Red Cell Distribution Width 13.9 % (11.5-14.5) Platelet Count 226 x10^3/uL (140-400) Neutrophils (%) (Auto) 76 % (31-73) Lymphocytes (%) (Auto) 14 % (24-48) Monocytes (%) (Auto) 9 % (0-9) Eosinophils (%) (Auto) 1 % (0-3) Basophils (%) (Auto) 0 % (0-3) Neutrophils # (Auto) 8.6 x10^3/uL (1.8-7.7) Lymphocytes # (Auto) 1.6 x10^3/uL (1.0-4.8) Monocytes # (Auto) 1.0 x10^3/uL (0.0-1.1) Eosinophils # (Auto) 0.1 x10^3/uL (0.0-0.7) Basophils # (Auto) 0.0 x10^3/uL (0.0-0.2) Prothrombin Time 12.8 SEC (11.7-14.0) Prothromb Time International Ratio 1.0 (0.8-1.1) Sodium Level 140 mmol/L (136-145) Potassium Level 4.0 mmol/L (3.5-5.1) Chloride Level 106 mmol/L (98-107) Carbon Dioxide Level 28 mmol/L (21-32) Anion Gap 6 (6-14) Blood Urea Nitrogen 18 mg/dL (8-26) Creatinine 1.0 mg/dL (0.7-1.3) Estimated GFR (Cockcroft-Gault) 75.2 BUN/Creatinine Ratio 18 (6-20) Glucose Level 119 mg/dL (70-99) Calcium Level 8.9 mg/dL (8.5-10.1) Total Bilirubin 0.4 mg/dL (0.2-1.0) Aspartate Amino Transf (AST/SGOT) 17 U/L (15-37) Alanine Aminotransferase (ALT/SGPT) 18 U/L (16-63) Alkaline Phosphatase 109 U/L (46-116) Troponin I Quantitative < 0.017 ng/mL (0.000-0.055) Total Protein 7.3 g/dL (6.4-8.2) Albumin 3.3 g/dL (3.4-5.0) Albumin/Globulin Ratio 0.8 (1.0-1.7) O2 Saturation 99 % (92-99) Arterial Blood pH 7.38 (7.35-7.45) Arterial Blood pCO2 at Patient Temp 43 mmHg (35-46) Arterial Blood pO2 at Patient Temp 450 mmHg (65-108) Arterial Blood HCO3 25 mmol/L (21-28) Arterial Blood Base Excess -1 mmol/L (-3-3) FiO2 100 Urine Collection Type Unknown Urine Color Yellow Urine Clarity Clear Urine pH 7.0 (<5.0-8.0) Urine Specific [place] 1.010 (1.000-1.030) Urine Protein Negative mg/dL (NEG-TRACE) Urine Glucose (UA) Negative mg/dL (NEG) Urine Ketones (Stick) Negative mg/dL (NEG) Urine Blood Moderate (NEG) Urine Nitrite Negative (NEG) Urine Bilirubin Negative (NEG) Urine Urobilinogen Dipstick 1.0 mg/dL (0.2 mg/dL) Urine Leukocyte Esterase Negative (NEG) Urine RBC 11-20 /HPF (0-2) Urine WBC 0 /HPF (0-4) Urine Bacteria 0 /HPF (0-FEW) Laboratory Tests Test 8/29/20 03:21 02/14/20 03:30 02/14/20 09:45 02/14/20 10:00 Glucose (Fingerstick) 119 mg/dL (70-99) White Blood Count 11.3 x10^3/uL (4.0-11.0) Red Blood Count 4.58 x10^6/uL (4.30-5.70) Hemoglobin 13.6 g/dL (13.0-17.5) Hematocrit 40.4 % (39.0-53.0) Mean Corpuscular Volume 88 fL (79-100) Mean Corpuscular Hemoglobin 30 pg (25-35) Mean Corpuscular Hemoglobin Concent 34 g/dL (31-37) Red Cell Distribution Width 13.9 % (11.5-14.5) Platelet Count 226 x10^3/uL (140-400) Neutrophils (%) (Auto) 76 % (31-73) Lymphocytes (%) (Auto) 14 % (24-48) Monocytes (%) (Auto) 9 % (0-9) Eosinophils (%) (Auto) 1 % (0-3) Basophils (%) (Auto) 0 % (0-3) Neutrophils # (Auto) 8.6 x10^3/uL (1.8-7.7) Lymphocytes # (Auto) 1.6 x10^3/uL (1.0-4.8) Monocytes # (Auto) 1.0 x10^3/uL (0.0-1.1) Eosinophils # (Auto) 0.1 x10^3/uL (0.0-0.7) Basophils # (Auto) 0.0 x10^3/uL (0.0-0.2) Prothrombin Time 12.8 SEC (11.7-14.0) Prothromb Time International Ratio 1.0 (0.8-1.1) Sodium Level 140 mmol/L (136-145) Potassium Level 4.0 mmol/L (3.5-5.1) Chloride Level 106 mmol/L (98-107) Carbon Dioxide Level 28 mmol/L (21-32) Anion Gap 6 (6-14) Blood Urea Nitrogen 18 mg/dL (8-26) Creatinine 1.0 mg/dL (0.7-1.3) Estimated GFR (Cockcroft-Gault) 75.2 BUN/Creatinine Ratio 18 (6-20) Glucose Level 119 mg/dL (70-99) Calcium Level 8.9 mg/dL (8.5-10.1) Total Bilirubin 0.4 mg/dL (0.2-1.0) Aspartate Amino Transf (AST/SGOT) 17 U/L (15-37) Alanine Aminotransferase (ALT/SGPT) 18 U/L (16-63) Alkaline Phosphatase 109 U/L (46-116) Troponin I Quantitative < 0.017 ng/mL (0.000-0.055) Total Protein 7.3 g/dL (6.4-8.2) Albumin 3.3 g/dL (3.4-5.0) Albumin/Globulin Ratio 0.8 (1.0-1.7) O2 Saturation 99 % (92-99) Arterial Blood pH 7.38 (7.35-7.45) Arterial Blood pCO2 at Patient Temp 43 mmHg (35-46) Arterial Blood pO2 at Patient Temp 450 mmHg (65-108) Arterial Blood HCO3 25 mmol/L (21-28) Arterial Blood Base Excess -1 mmol/L (-3-3) FiO2 100 Urine Collection Type Unknown Urine Color Yellow Urine Clarity Clear Urine pH 7.0 (<5.0-8.0) Urine Specific [place] 1.010 (1.000-1.030) Urine Protein Negative mg/dL (NEG-TRACE) Urine Glucose (UA) Negative mg/dL (NEG) Urine Ketones (Stick) Negative mg/dL (NEG) Urine Blood Moderate (NEG) Urine Nitrite Negative (NEG) Urine Bilirubin Negative (NEG) Urine Urobilinogen Dipstick 1.0 mg/dL (0.2 mg/dL) Urine Leukocyte Esterase Negative (NEG) Urine RBC 11-20 /HPF (0-2) Urine WBC 0 /HPF (0-4) Urine Bacteria 0 /HPF (0-FEW) Impression . Full note dictated, discussed with MOOSE Lion MD Feb 14, 2020 14:53
[2020-02-14 14:54] LABS: CALCIUM 8.2 mg/dL (8.5-10.1); CREATININE 0.7 mg/dL (0.7-1.3); GFR 113.5; MAGNESIUM 2.2 mg/dL (1.8-2.4); POTASSIUM 3.5 mmol/L (3.5-5.1)
--- NOTE | 2020-02-14 17:12 | CONS ---
DATE OF CONSULTATION: 02/14/2020 ADDENDUM PROCEDURE PERFORMED: Redirection of ventriculostomy catheter. TIME: 03:00 p.m. After the ventricular catheter was placed this morning, I had a followup CT scan obtained to evaluate the catheter position. That catheter skimmed along the posterior aspect of the right lateral ventricle and then down through the third ventricle, entering in the suprasellar cistern. I therefore came back and pulled the catheter and then tried to redirect it more medially. At the time this morning when the catheter was placed the first time the patient would localize spontaneously with his right upper extremity. His pupils were minimally reactive. At the time that the catheter was redirected, he was more heavily sedated and had nonreactive pupils and really no response. At this time now at 03:00 p.m., I am reevaluating and following, and reviewing the second followup CT scan for catheter position. The catheter at this time does remain in the right lateral ventricle largely and tip of the catheter does follow down into the third ventricle, which I feel is satisfactory position. When I redirected the catheter, I did evaluate his intracranial pressure directly. The spinal fluid would drip at about 4 or 5 cm of water close to, not quite the top of his forehead with regard to elevation. I felt that the pressure at that time was fairly low, but the flow was excellent. While lifting and lowering the end of the catheter, I had excellent flow. Now at 03:00 p.m., he remains with ICP of 3 mmHg. I held his sedation and his blood pressure began to rise and then he would localize relatively briskly with his right upper extremity. At this point, I feel that the catheter is functioning and his intracranial pressure is not elevated. His neurological examination now is the same as when I initially saw him. At this point, I am going to continue with the current plan and reevaluate him in the morning. I did speak with the trap puller directly about him. KELLI JOY MD DR: JOEL/dean JOB#: [id number] / [id number] RONALD
--- NOTE | 2020-02-14 17:15 | CONS ---
DATE OF CONSULTATION: 02/14/2020 ATTENDING PHYSICIAN: Dr. Land. REASON FOR CONSULTATION: The patient is seen in pulmonary consultation at the request of Dr. Land and Dr. Jones for vent management. HISTORY OF PRESENT ILLNESS: The patient is a 64-year-old that presented to the Emergency Room with a prior history of ischemic stroke, presented with chief complaints of headache and weakness. Per EMS, the patient was last seen at 12:00 a.m. approximately 3 hours prior to arrival. The patient woke up with a severe headache. He went back to sleep and woke up again with a headache. He continued to have severe headache. The patient was evaluated by a CT scan, which showed right-sided basal ganglia hemorrhage of moderate to large size with extension into the ventricular system. He underwent a ventriculostomy, initial pressure was 9 cm of water. He has been on mechanical ventilation since then. I was asked to manage his vent. His arterial blood gas revealed a pH of 7.38, PaCO2 of 43, pO2 of 450. White count is 11.3. The patient is currently sedated. He is receiving nicardipine for hypertension. He has also received some vancomycin prior to his ventriculostomy. PAST MEDICAL HISTORY: Obtained by reviewing the current documentation, he has a history of previous CVA, hyperlipidemia. PAST SURGICAL HISTORY: Hernia repair. SOCIAL HISTORY: He smokes. REVIEW OF SYSTEMS: Unobtainable secondary to the patient's condition. ALLERGIES: LISTED TO PENICILLIN. CURRENT MEDICATIONS: List was reviewed. PHYSICAL EXAMINATION: VITAL SIGNS: Stable. O2 saturation was greater than 92%. He has been afebrile. HEENT: Eyes, the sclerae were nonicteric. NECK: Jugular venous distention was not elevated. No lymphadenopathy. CHEST: Full expansion. LUNGS: Clear anteriorly. No wheezes. CARDIOVASCULAR: Regular rate and rhythm with S1, S2, no S3. ABDOMEN: Soft, nontender, nondistended. EXTREMITIES: No clubbing, cyanosis or edema. NEUROLOGIC: The patient had no cough reflex. He is sedated with Diprivan, on assist control of 22, not assisting the ventilator. LABORATORY DATA: INR was 1.0. Hemoglobin and hematocrit were noted. Electrolytes were normal. BUN and creatinine were normal. IMPRESSION: 1. Acute respiratory failure secondary to cerebrovascular accident. 2. Hypertensive crisis. 3. 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 4. Status post ventriculostomy. 5. Intracerebral bleeding. 6. Encephalopathy secondary to above. 7. History of hypertension. 8. History of previous cerebrovascular accident. 9. Tobacco dependent. PLAN: 1. We will continue current support with assist control ventilation. 2. Follow Neurosurgery input. 3. Continue nicardipine for hypertension. 4. GI prophylaxis. 5. DVT prophylaxis with sequential compressive devices. The above was discussed with the daughter at the bedside. Total cumulative critical care time of 45 minutes reviewing data, labs, chest x-ray, also discussing case with Dr. Jones. MOOSE PASCAL MD DR: ZENIA/dean JOB#: [id number] / [id number]
[2020-02-14] MEDS ORDERED: TAMS0.4C97 PO (20:26)
[2020-02-14] MEDS ORDERED: FAMOTIDINE 20 MG/2 ML VIAL IVP SCH (21:00)
--- NOTE | 2020-02-14 22:59 | CONS ---
DATE OF CONSULTATION: 02/14/2020 REFERRING PHYSICIAN: Dr. Land. REASON FOR CONSULTATION: Right thalamic hemorrhage and intraventricular rupture with hydrocephalus. HISTORY OF PRESENT ILLNESS: The patient is a 64-year-old man who has a history of ischemic stroke, who presented with acute left-sided weakness and severe headache. EMS was activated. In the Emergency Room, a CT scan of the head revealed a large right thalamic hemorrhage with intraventricular rupture and a right to left shift. Upon presentation, he was awake and alert. He then quickly went into respiratory failure and required emergent intubation. Neurosurgery was consulted and an emergency ventriculostomy was placed with improvement in neurologic function. He is currently in the intensive care unit, intubated, ventilated and sedated. PAST MEDICAL HISTORY: 1. History of stroke. 2. Hyperlipidemia. 3. Hernia repair. 4. Tobacco abuse. ALLERGIES: PENICILLINS. MEDICATIONS PRIOR TO ADMISSION: Tamsulosin 0.4 mg. FAMILY HISTORY: High cholesterol and hypertension. SOCIAL HISTORY: He smokes daily. He does not drink alcohol or use recreational drugs. REVIEW OF SYSTEMS: Not obtainable as the patient is intubated and ventilated. PHYSICAL EXAMINATION: VITAL SIGNS: The blood pressure was 126/56, pulse 71, respirations 22, and temperature 99.4 degrees Fahrenheit. Oximetry on the ventilator was 97%. Peak blood pressure in the Emergency Room was 227/102. GENERAL: He was intubated, ventilated and sedated with fentanyl. He was having spontaneous movements of his right arm, trying to remove the endotracheal tube and also rubbing the side of his head, trying to reach the side of his head where the ventriculostomy was placed. He could nod to questions, but was quite lethargic. He could follow some simple command. When open the eyes or conjugate when he was alert, pupils were 3 mm and reactive. Face appeared symmetric. He tried to protrude his tongue by the endotracheal tube. Muscle bulk was symmetric. Tone was diminished on the left side. He did not have any movement of the left arm or leg spontaneously. He spontaneously move the right side. He could raise the right arm and the right leg in the air. He responded to nail bed pressure on the right side with a grimace and nod to acknowledge he felt it. He did not respond to nail bed pressure on the left side other than triple flexion response in his foot, but there was no grimace or acknowledgement of the sensation. Reflexes were brisker on the right side than the left side. Left toe was upgoing. NECK: Auscultation of the carotid artery did not reveal a bruit. HEART: Rhythm was regular. Peripheral pulses were present. There was no edema or cyanosis of the extremities. LABORATORY RESULTS: CBC was performed on 02/14/2020 revealing an elevated white blood cell count of 11.3, hemoglobin of 13.6, hematocrit 40.4 and platelet count of 226. Chemistries were performed on 02/14/2020. Electrolytes were normal. BUN, creatinine and GFR were normal. Glucose elevated to 127. Calcium was low at 8.2 and magnesium normal. Troponin was not elevated. The liver enzymes were not elevated. Albumin was low at 3.3. PT/INR was 1 on 02/14/2020. Urinalysis was performed on 02/14/2020 revealing 11-20 red blood cells, and no white blood cells and no bacteria. I reviewed the CT scans of the head, which were performed today. He has had a total of 3 CT scans of his head. This revealed a large right thalamic stroke and basal ganglion stroke. This had intraventricular rupture with filling lateral, third and forth ventricles. There was some right to left shift. It most recently revealed a ventriculostomy in place. Chest x-ray revealed bibasilar heterogeneous opacities, which could represent subsegmental atelectasis, infection or aspiration. KUB was performed on 02/14/2020 revealing the endotracheal tube in place. There was no free air in the abdomen or dilation of the bowels. IMPRESSION: The patient is a 64-year-old man who developed a spontaneous right intraparenchymal hemorrhage into the basal ganglia and thalamus. It ruptured into the ventricular system. He acutely deteriorated, which likely represented hydrocephalus. Neurosurgery emergently placed a ventriculostomy, which was likely lifesaving. His neurologic status has stabilized. He is currently sedated, which limits the neuro exam, but he is able to wake up enough to respond to stimulation on the right side and spontaneously move his right side. He has a dense left hemiparesis. Prognosis is guarded in this situation. Often strokes in this region can cause lethargy for prolonged periods of time. He is at risk for infection. He has not had seizure activity. RECOMMENDATIONS: I would continue with supportive care. I would keep sedation as light as he can tolerate. I do recommend that we need to restrain the right arm, so he does not dislodge the ventriculostomy as his hand is going to this region of his head. I will be happy to follow along. SANDRA ELLIOTT MD DR: CLAIRE/dean JOB#: [id number] / [id number]
[2020-02-15] VITALS (27 sets, daily range): BP systolic 124–148; BP diastolic 57–70
--- NOTE | 2020-02-15 00:15 | NUR ---
While Dr. Rice was assessing patient, pt started moving his right arm up towards the drain. Orders for restraints on that right arm. Soft restraints placed, otherwise tolerating vent. Started fentanyl back up to help patient rest and head pain, Dr. Rice did not want propofol on so we could assess neuro status. Continue to titrate cardene gtt appropriately.
[2020-02-15 05:42] LABS: BASO % 0 % (0-3); EOS % 0 % (0-3); HEMATOCRIT 39.8 % (39.0-53.0); HEMOGLOBIN 13.5 g/dL (13.0-17.5); LYMPH # 1.3 x10^3/uL (1.0-4.8); LYMPH % 10 % (24-48); MEAN CORPUSCULAR HEMOGLOBIN 30 pg (25-35); MEAN CORPUSCULAR HGB CONC 34 g/dL (31-37); MEAN CORPUSCULAR VOLUME 89 fL (79-100); MONO # 1.3 x10^3/uL (0.0-1.1); MONO % 10 % (0-9); NEUT # 9.8 x10^3/uL (1.8-7.7); NEUT % 79 % (31-73); PLATELET COUNT 202 x10^3/uL (140-400); RED BLOOD COUNT 4.49 x10^6/uL (4.30-5.70); RED CELL DISTRIBUTION WIDTH 13.8 % (11.5-14.5); WHITE BLOOD COUNT 12.4 x10^3/uL (4.0-11.0)
[2020-02-15 05:48] LABS: CREATININE 0.7 mg/dL (0.7-1.3); GFR 113.5; POTASSIUM 3.7 mmol/L (3.5-5.1)
[2020-02-15] MEDS: PANTOPRAZOLE IV PUSH 40 MG VIAL. IVP SCH (07:28)
[2020-02-15 07:53] LABS: BASE EXCESS ABG 1 mmol/L (-3-3); HCO3 ABG 26 mmol/L (21-28); PCO2 ABG 45 mmHg (35-46); PO2 ABG 102 mmHg (65-108); SAT O2 ABG 98 % (92-99)
[2020-02-15 07:54] LABS: FIO2 ABG 40
[2020-02-15] MEDS: POTASSIUM CL 20MEQ D5-0.45NACL 1,000 ML IV SCH (07:59)
--- NOTE | 2020-02-15 09:27 | PDOC ---
PULMONARY PROGRESS NOTES DATE: 02/15/20 TIME: 09:15 Subjective Remains on vent in AC mode S/P ventricular system 02/15/20 No fevers, minimal secretion from ET tube No overnight concerns from nursing Vitals Vital Signs Date Time Temp Pulse Resp B/P (MAP) Pulse Ox O2 Delivery O2 Flow Rate FiO2 02/15/20 09:00 67 22 148/60 (89) 98 Ventilator 02/15/20 08:00 99.6 99.6 Labs Laboratory Tests Test 02/14/20 03:21 02/14/20 03:30 02/14/20 09:45 02/14/20 10:00 Glucose (Fingerstick) 119 mg/dL (70-99) White Blood Count 11.3 x10^3/uL (4.0-11.0) Red Blood Count 4.58 x10^6/uL (4.30-5.70) Hemoglobin 13.6 g/dL (13.0-17.5) Hematocrit 40.4 % (39.0-53.0) Mean Corpuscular Volume 88 fL (79-100) Mean Corpuscular Hemoglobin 30 pg (25-35) Mean Corpuscular Hemoglobin Concent 34 g/dL (31-37) Red Cell Distribution Width 13.9 % (11.5-14.5) Platelet Count 226 x10^3/uL (140-400) Neutrophils (%) (Auto) 76 % (31-73) Lymphocytes (%) (Auto) 14 % (24-48) Monocytes (%) (Auto) 9 % (0-9) Eosinophils (%) (Auto) 1 % (0-3) Basophils (%) (Auto) 0 % (0-3) Neutrophils # (Auto) 8.6 x10^3/uL (1.8-7.7) Lymphocytes # (Auto) 1.6 x10^3/uL (1.0-4.8) Monocytes # (Auto) 1.0 x10^3/uL (0.0-1.1) Eosinophils # (Auto) 0.1 x10^3/uL (0.0-0.7) Basophils # (Auto) 0.0 x10^3/uL (0.0-0.2) Prothrombin Time 12.8 SEC (11.7-14.0) Prothromb Time International Ratio 1.0 (0.8-1.1) Sodium Level 140 mmol/L (136-145) Potassium Level 4.0 mmol/L (3.5-5.1) Chloride Level 106 mmol/L (98-107) Carbon Dioxide Level 28 mmol/L (21-32) Anion Gap 6 (6-14) Blood Urea Nitrogen 18 mg/dL (8-26) Creatinine 1.0 mg/dL (0.7-1.3) Estimated GFR (Cockcroft-Gault) 75.2 BUN/Creatinine Ratio 18 (6-20) Glucose Level 119 mg/dL (70-99) Calcium Level 8.9 mg/dL (8.5-10.1) Total Bilirubin 0.4 mg/dL (0.2-1.0) Aspartate Amino Transf (AST/SGOT) 17 U/L (15-37) Alanine Aminotransferase (ALT/SGPT) 18 U/L (16-63) Alkaline Phosphatase 109 U/L (46-116) Troponin I Quantitative < 0.017 ng/mL (0.000-0.055) Total Protein 7.3 g/dL (6.4-8.2) Albumin 3.3 g/dL (3.4-5.0) Albumin/Globulin Ratio 0.8 (1.0-1.7) O2 Saturation 99 % (92-99) Arterial Blood pH 7.38 (7.35-7.45) Arterial Blood pCO2 at Patient Temp 43 mmHg (35-46) Arterial Blood pO2 at Patient Temp 450 mmHg (65-108) Arterial Blood HCO3 25 mmol/L (21-28) Arterial Blood Base Excess -1 mmol/L (-3-3) FiO2 100 Urine Collection Type Unknown Urine Color Yellow Urine Clarity Clear Urine pH 7.0 (<5.0-8.0) Urine Specific [place] 1.010 (1.000-1.030) Urine Protein Negative mg/dL (NEG-TRACE) Urine Glucose (UA) Negative mg/dL (NEG) Urine Ketones (Stick) Negative mg/dL (NEG) Urine Blood Moderate (NEG) Urine Nitrite Negative (NEG) Urine Bilirubin Negative (NEG) Urine Urobilinogen Dipstick 1.0 mg/dL (0.2 mg/dL) Urine Leukocyte Esterase Negative (NEG) Urine RBC 11-20 /HPF (0-2) Urine WBC 0 /HPF (0-4) Urine Bacteria 0 /HPF (0-FEW) Test 02/14/20 14:35 02/15/20 05:00 02/15/20 07:40 Sodium Level 142 mmol/L (136-145) 139 mmol/L (136-145) Potassium Level 3.5 mmol/L (3.5-5.1) 3.7 mmol/L (3.5-5.1) Chloride Level 107 mmol/L (98-107) 105 mmol/L (98-107) Carbon Dioxide Level 28 mmol/L (21-32) 31 mmol/L (21-32) Anion Gap 7 (6-14) 3 (6-14) Blood Urea Nitrogen 14 mg/dL (8-26) 13 mg/dL (8-26) Creatinine 0.7 mg/dL (0.7-1.3) 0.7 mg/dL (0.7-1.3) Estimated GFR (Cockcroft-Gault) 113.5 113.5 Glucose Level 127 mg/dL (70-99) 145 mg/dL (70-99) Calcium Level 8.2 mg/dL (8.5-10.1) 8.0 mg/dL (8.5-10.1) Magnesium Level 2.2 mg/dL (1.8-2.4) White Blood Count 12.4 x10^3/uL (4.0-11.0) Red Blood Count 4.49 x10^6/uL (4.30-5.70) Hemoglobin 13.5 g/dL (13.0-17.5) Hematocrit 39.8 % (39.0-53.0) Mean Corpuscular Volume 89 fL (79-100) Mean Corpuscular Hemoglobin 30 pg (25-35) Mean Corpuscular Hemoglobin Concent 34 g/dL (31-37) Red Cell Distribution Width 13.8 % (11.5-14.5) Platelet Count 202 x10^3/uL (140-400) Neutrophils (%) (Auto) 79 % (31-73) Lymphocytes (%) (Auto) 10 % (24-48) Monocytes (%) (Auto) 10 % (0-9) Eosinophils (%) (Auto) 0 % (0-3) Basophils (%) (Auto) 0 % (0-3) Neutrophils # (Auto) 9.8 x10^3/uL (1.8-7.7) Lymphocytes # (Auto) 1.3 x10^3/uL (1.0-4.8) Monocytes # (Auto) 1.3 x10^3/uL (0.0-1.1) Eosinophils # (Auto) 0.0 x10^3/uL (0.0-0.7) Basophils # (Auto) 0.0 x10^3/uL (0.0-0.2) O2 Saturation 98 % (92-99) Arterial Blood pH 7.38 (7.35-7.45) Arterial Blood pCO2 at Patient Temp 45 mmHg (35-46) Arterial Blood pO2 at Patient Temp 102 mmHg (65-108) Arterial Blood HCO3 26 mmol/L (21-28) Arterial Blood Base Excess 1 mmol/L (-3-3) FiO2 40 Laboratory Tests Test 02/14/20 09:45 02/14/20 10:00 02/14/20 14:35 02/15/20 05:00 O2 Saturation 99 % (92-99) Arterial Blood pH 7.38 (7.35-7.45) Arterial Blood pCO2 at Patient Temp 43 mmHg (35-46) Arterial Blood pO2 at Patient Temp 450 mmHg (65-108) Arterial Blood HCO3 25 mmol/L (21-28) Arterial Blood Base Excess -1 mmol/L (-3-3) FiO2 100 Urine Collection Type Unknown Urine Color Yellow Urine Clarity Clear Urine pH 7.0 (<5.0-8.0) Urine Specific [place] 1.010 (1.000-1.030) Urine Protein Negative mg/dL (NEG-TRACE) Urine Glucose (UA) Negative mg/dL (NEG) Urine Ketones (Stick) Negative mg/dL (NEG) Urine Blood Moderate (NEG) Urine Nitrite Negative (NEG) Urine Bilirubin Negative (NEG) Urine Urobilinogen Dipstick 1.0 mg/dL (0.2 mg/dL) Urine Leukocyte Esterase Negative (NEG) Urine RBC 11-20 /HPF (0-2) Urine WBC 0 /HPF (0-4) Urine Bacteria 0 /HPF (0-FEW) Sodium Level 142 mmol/L (136-145) 139 mmol/L (136-145) Potassium Level 3.5 mmol/L (3.5-5.1) 3.7 mmol/L (3.5-5.1) Chloride Level 107 mmol/L (98-107) 105 mmol/L (98-107) Carbon Dioxide Level 28 mmol/L (21-32) 31 mmol/L (21-32) Anion Gap 7 (6-14) 3 (6-14) Blood Urea Nitrogen 14 mg/dL (8-26) 13 mg/dL (8-26) Creatinine 0.7 mg/dL (0.7-1.3) 0.7 mg/dL (0.7-1.3) Estimated GFR (Cockcroft-Gault) 113.5 113.5 Glucose Level 127 mg/dL (70-99) 145 mg/dL (70-99) Calcium Level 8.2 mg/dL (8.5-10.1) 8.0 mg/dL (8.5-10.1) Magnesium Level 2.2 mg/dL (1.8-2.4) White Blood Count 12.4 x10^3/uL (4.0-11.0) Red Blood Count 4.49 x10^6/uL (4.30-5.70) Hemoglobin 13.5 g/dL (13.0-17.5) Hematocrit 39.8 % (39.0-53.0) Mean Corpuscular Volume 89 fL (79-100) Mean Corpuscular Hemoglobin 30 pg (25-35) Mean Corpuscular Hemoglobin Concent 34 g/dL (31-37) Red Cell Distribution Width 13.8 % (11.5-14.5) Platelet Count 202 x10^3/uL (140-400) Neutrophils (%) (Auto) 79 % (31-73) Lymphocytes (%) (Auto) 10 % (24-48) Monocytes (%) (Auto) 10 % (0-9) Eosinophils (%) (Auto) 0 % (0-3) Basophils (%) (Auto) 0 % (0-3) Neutrophils # (Auto) 9.8 x10^3/uL (1.8-7.7) Lymphocytes # (Auto) 1.3 x10^3/uL (1.0-4.8) Monocytes # (Auto) 1.3 x10^3/uL (0.0-1.1) Eosinophils # (Auto) 0.0 x10^3/uL (0.0-0.7) Basophils # (Auto) 0.0 x10^3/uL (0.0-0.2) Test 02/15/20 07:40 O2 Saturation 98 % (92-99) Arterial Blood pH 7.38 (7.35-7.45) Arterial Blood pCO2 at Patient Temp 45 mmHg (35-46) Arterial Blood pO2 at Patient Temp 102 mmHg (65-108) Arterial Blood HCO3 26 mmol/L (21-28) Arterial Blood Base Excess 1 mmol/L (-3-3) FiO2 40 Medications Active Scripts Medications Dose Route/Sig Max Daily Dose Days Date Category Flomax (Tamsulosin Hcl) 0.4 Mg Cap.er.24h 1 Cap PO DAILY 02/14/20 Reported Comments CXR IMPRESSION: 1. Life-support devices as above. 2. Bibasilar heterogeneous opacities, which could represent subsegmental atelectasis, infection, or aspiration. Impression . IMPRESSION: 1. Acute respiratory failure secondary to cerebrovascular accident. 2. Hypertensive crisis. 3. 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 4. Status post ventriculostomy. 5. Intracerebral bleeding. 6. Encephalopathy secondary to above. 7. History of hypertension. 8. History of previous cerebrovascular accident. 9. Tobacco dependent. Plan . PLAN: Spoke with Dr. Jones, patient following commands, will perform trial and possibly extubate, on exam patient follows commands has left-sided hemiparesis Follow neurosurgery and neurology recs Cont. aggressive treatment of HTN, currently on nicardipine gtt DVT/GI PPX Total cumulative critical care time of 35 minutes MOOSE PASCAL MD Feb 15, 2020 09:27
--- NOTE | 2020-02-15 10:55 | PDOC ---
PROGRESS NOTES Date of Service: DATE: 02/15/20 TIME: 10:55 Chief Complaint Chief Complaint VTE Prophylaxis Ordered VTE Prophylaxis Devices: Yes VTE Pharmacological Prophylaxi: Contraindicated Assessment/Plan Assessment/Plan IMPRESSION: Intraparenchymal hemorrhage of brain Acute intraparenchymal hematoma centered within the right thalamus with a volume of approximately 14 cc. Intraventricular extension of hemorrhage filling much of the right lateral ventricle and extending downwards through the fourth ventricle.hematoma and associated edema exert mass effect on the foramen of Prieto and a portion of the third ventricle. dilatation of the right lateral ventricle temporal horn developing hydrocephalus. 02/13 ctRight frontal approach ventriculostomy . Stable ventricular configuration. Stable right basal ganglia acute intraparenchymal hemorrhage with intraventricular extension. Mass effect with sulcal effacement and increased suprasellar cistern effacement. PLAN ADMIT ICU Consult neurosurgery vent support consult pulmonary consult neurology History of Present Illness History of Present Illness Identification/Chief Complaint Chief Complaint ADMITTED TO ICU 64-year-old male with PMH ischemic stroke who presents with a chief complaint of headache and weakness. ACCORDING TO EMS the patient was last known well was 12:00 AM. Approximately 3 hours prior to arrival. patient went to bed around midnight. //woke up at 1230 with a severe headache. He went back to sleep and woke up again approximately half hour prior to arrival. continued have a severe headache. They state the patient was noted to have left upper extremity left lower extremity weakness.//noted some facial asymmetry Past Medical History Past Medical History Past Medical History Past Medical History: CVA, High Cholesterol Past Surgical History: Other Additional Past Surgical Histo: HERNIA REPAIR Smoking Status: Current Every Day Smoker Alcohol Use: None fhx copd Family History Family History: High Cholestrol, Hypertension Social History Smoke: No ALCOHOL: none Drugs: None Current Problem List Problem List Problems Medical Problems: (1) Intraparenchymal hemorrhage of brain Status: Acute Vitals Vitals Vital Signs Date Time Temp Pulse Resp B/P (MAP) Pulse Ox O2 Delivery O2 Flow Rate FiO2 02/15/20 10:52 75 22 136/58 (84) 96 Ventilator 02/15/20 08:00 99.6 99.6 Physical Exam Physical Exam Eyes: PERRLA, EOMI, conjunctiva normal, no discharge. [] Neck: Normal range of motion, no tenderness, supple, no stridor. [] Cardiovascular:Heart rate regular rhythm, no murmur [] Lungs & Thorax: Bilateral breath sounds clear to auscultation [] Abdomen: Bowel sounds normal, soft, no tenderness, no masses, no pulsatile masses. [] Skin: Warm, dry, no erythema, no rash. [] Back: No tenderness, no CVA tenderness. [] Extremities: No tenderness, no cyanosis, no clubbing, ROM intact, no edema. [] Labs LABS CT HEAD WO CONTRAST Date: 02/14/2020 11:23 AM Clinical Indication: Follow up ventricular catheter placement Comparison: 02/14/2020. Technique: 5 mm axial tomographic images were obtained of the head without contrast. These were viewed on brain and bone windows. One or more of the following dose reduction techniques were utilized: Automated exposure control (AEC), Adjustment of mA and/or kV according to patient size, Use of iterative reconstruction technique such as ASiR, CT scan done according to ALARA and image gently/image wisely Findings: Postsurgical changes of a right frontal approach ventricular shunt catheter with tip terminating in the midline near the suprasellar cistern. Stable configuration of the ventricles, with asymmetric dilatation of the right lateral ventricle temporal horn measuring 13 mm. Stable right basal ganglia acute intraparenchymal hemorrhage. Stable intraventricular extension of blood involving the right greater than left lateral ventricles, third ventricle, and fourth ventricle. Unchanged mass effect with 6 mm right left midline shift. Increased suprasellar cistern effacement. The visualized paranasal sinuses are normal. The visualized portions of the orbits and globes are normal. The mastoid air cells are clear. The field operations supervisor topogram shows no lytic lesion or fracture. Impression: 1. Right frontal approach ventriculostomy as above. Stable ventricular configuration. 2. Stable right basal ganglia acute intraparenchymal hemorrhage with intraventricular extension. 3. Mass effect with sulcal effacement and increased suprasellar cistern effacement. Electronically signed by: Jai Lunsford MD (02/14/2020 2:13 PM) [id number] Laboratory Tests Test 02/14/20 14:35 02/15/20 05:00 02/15/20 07:40 Sodium Level 142 mmol/L (136-145) 139 mmol/L (136-145) Potassium Level 3.5 mmol/L (3.5-5.1) 3.7 mmol/L (3.5-5.1) Chloride Level 107 mmol/L (98-107) 105 mmol/L (98-107) Carbon Dioxide Level 28 mmol/L (21-32) 31 mmol/L (21-32) Anion Gap 7 (6-14) 3 (6-14) Blood Urea Nitrogen 14 mg/dL (8-26) 13 mg/dL (8-26) Creatinine 0.7 mg/dL (0.7-1.3) 0.7 mg/dL (0.7-1.3) Estimated GFR (Cockcroft-Gault) 113.5 113.5 Glucose Level 127 mg/dL (70-99) 145 mg/dL (70-99) Calcium Level 8.2 mg/dL (8.5-10.1) 8.0 mg/dL (8.5-10.1) Magnesium Level 2.2 mg/dL (1.8-2.4) White Blood Count 12.4 x10^3/uL (4.0-11.0) Red Blood Count 4.49 x10^6/uL (4.30-5.70) Hemoglobin 13.5 g/dL (13.0-17.5) Hematocrit 39.8 % (39.0-53.0) Mean Corpuscular Volume 89 fL (79-100) Mean Corpuscular Hemoglobin 30 pg (25-35) Mean Corpuscular Hemoglobin Concent 34 g/dL (31-37) Red Cell Distribution Width 13.8 % (11.5-14.5) Platelet Count 202 x10^3/uL (140-400) Neutrophils (%) (Auto) 79 % (31-73) Lymphocytes (%) (Auto) 10 % (24-48) Monocytes (%) (Auto) 10 % (0-9) Eosinophils (%) (Auto) 0 % (0-3) Basophils (%) (Auto) 0 % (0-3) Neutrophils # (Auto) 9.8 x10^3/uL (1.8-7.7) Lymphocytes # (Auto) 1.3 x10^3/uL (1.0-4.8) Monocytes # (Auto) 1.3 x10^3/uL (0.0-1.1) Eosinophils # (Auto) 0.0 x10^3/uL (0.0-0.7) Basophils # (Auto) 0.0 x10^3/uL (0.0-0.2) O2 Saturation 98 % (92-99) Arterial Blood pH 7.38 (7.35-7.45) Arterial Blood pCO2 at Patient Temp 45 mmHg (35-46) Arterial Blood pO2 at Patient Temp 102 mmHg (65-108) Arterial Blood HCO3 26 mmol/L (21-28) Arterial Blood Base Excess 1 mmol/L (-3-3) FiO2 40 Assessment and Plan Assessmemt and Plan Problems Medical Problems: (1) Intraparenchymal hemorrhage of brain Status: Acute Comment Review of Relevant I have reviewed the following items faraz (where applicable) has been applied. Labs Laboratory Tests Test 02/14/20 03:21 02/14/20 03:30 02/14/20 09:45 02/14/20 10:00 Glucose (Fingerstick) 119 mg/dL (70-99) White Blood Count 11.3 x10^3/uL (4.0-11.0) Red Blood Count 4.58 x10^6/uL (4.30-5.70) Hemoglobin 13.6 g/dL (13.0-17.5) Hematocrit 40.4 % (39.0-53.0) Mean Corpuscular Volume 88 fL (79-100) Mean Corpuscular Hemoglobin 30 pg (25-35) Mean Corpuscular Hemoglobin Concent 34 g/dL (31-37) Red Cell Distribution Width 13.9 % (11.5-14.5) Platelet Count 226 x10^3/uL (140-400) Neutrophils (%) (Auto) 76 % (31-73) Lymphocytes (%) (Auto) 14 % (24-48) Monocytes (%) (Auto) 9 % (0-9) Eosinophils (%) (Auto) 1 % (0-3) Basophils (%) (Auto) 0 % (0-3) Neutrophils # (Auto) 8.6 x10^3/uL (1.8-7.7) Lymphocytes # (Auto) 1.6 x10^3/uL (1.0-4.8) Monocytes # (Auto) 1.0 x10^3/uL (0.0-1.1) Eosinophils # (Auto) 0.1 x10^3/uL (0.0-0.7) Basophils # (Auto) 0.0 x10^3/uL (0.0-0.2) Prothrombin Time 12.8 SEC (11.7-14.0) Prothromb Time International Ratio 1.0 (0.8-1.1) Sodium Level 140 mmol/L (136-145) Potassium Level 4.0 mmol/L (3.5-5.1) Chloride Level 106 mmol/L (98-107) Carbon Dioxide Level 28 mmol/L (21-32) Anion Gap 6 (6-14) Blood Urea Nitrogen 18 mg/dL (8-26) Creatinine 1.0 mg/dL (0.7-1.3) Estimated GFR (Cockcroft-Gault) 75.2 BUN/Creatinine Ratio 18 (6-20) Glucose Level 119 mg/dL (70-99) Calcium Level 8.9 mg/dL (8.5-10.1) Total Bilirubin 0.4 mg/dL (0.2-1.0) Aspartate Amino Transf (AST/SGOT) 17 U/L (15-37) Alanine Aminotransferase (ALT/SGPT) 18 U/L (16-63) Alkaline Phosphatase 109 U/L (46-116) Troponin I Quantitative < 0.017 ng/mL (0.000-0.055) Total Protein 7.3 g/dL (6.4-8.2) Albumin 3.3 g/dL (3.4-5.0) Albumin/Globulin Ratio 0.8 (1.0-1.7) O2 Saturation 99 % (92-99) Arterial Blood pH 7.38 (7.35-7.45) Arterial Blood pCO2 at Patient Temp 43 mmHg (35-46) Arterial Blood pO2 at Patient Temp 450 mmHg (65-108) Arterial Blood HCO3 25 mmol/L (21-28) Arterial Blood Base Excess -1 mmol/L (-3-3) FiO2 100 Urine Collection Type Unknown Urine Color Yellow Urine Clarity Clear Urine pH 7.0 (<5.0-8.0) Urine Specific [place] 1.010 (1.000-1.030) Urine Protein Negative mg/dL (NEG-TRACE) Urine Glucose (UA) Negative mg/dL (NEG) Urine Ketones (Stick) Negative mg/dL (NEG) Urine Blood Moderate (NEG) Urine Nitrite Negative (NEG) Urine Bilirubin Negative (NEG) Urine Urobilinogen Dipstick 1.0 mg/dL (0.2 mg/dL) Urine Leukocyte Esterase Negative (NEG) Urine RBC 11-20 /HPF (0-2) Urine WBC 0 /HPF (0-4) Urine Bacteria 0 /HPF (0-FEW) Test 02/14/20 14:35 02/15/20 05:00 02/15/20 07:40 Sodium Level 142 mmol/L (136-145) 139 mmol/L (136-145) Potassium Level 3.5 mmol/L (3.5-5.1) 3.7 mmol/L (3.5-5.1) Chloride Level 107 mmol/L (98-107) 105 mmol/L (98-107) Carbon Dioxide Level 28 mmol/L (21-32) 31 mmol/L (21-32) Anion Gap 7 (6-14) 3 (6-14) Blood Urea Nitrogen 14 mg/dL (8-26) 13 mg/dL (8-26) Creatinine 0.7 mg/dL (0.7-1.3) 0.7 mg/dL (0.7-1.3) Estimated GFR (Cockcroft-Gault) 113.5 113.5 Glucose Level 127 mg/dL (70-99) 145 mg/dL (70-99) Calcium Level 8.2 mg/dL (8.5-10.1) 8.0 mg/dL (8.5-10.1) Magnesium Level 2.2 mg/dL (1.8-2.4) White Blood Count 12.4 x10^3/uL (4.0-11.0) Red Blood Count 4.49 x10^6/uL (4.30-5.70) Hemoglobin 13.5 g/dL (13.0-17.5) Hematocrit 39.8 % (39.0-53.0) Mean Corpuscular Volume 89 fL (79-100) Mean Corpuscular Hemoglobin 30 pg (25-35) Mean Corpuscular Hemoglobin Concent 34 g/dL (31-37) Red Cell Distribution Width 13.8 % (11.5-14.5) Platelet Count 202 x10^3/uL (140-400) Neutrophils (%) (Auto) 79 % (31-73) Lymphocytes (%) (Auto) 10 % (24-48) Monocytes (%) (Auto) 10 % (0-9) Eosinophils (%) (Auto) 0 % (0-3) Basophils (%) (Auto) 0 % (0-3) Neutrophils # (Auto) 9.8 x10^3/uL (1.8-7.7) Lymphocytes # (Auto) 1.3 x10^3/uL (1.0-4.8) Monocytes # (Auto) 1.3 x10^3/uL (0.0-1.1) Eosinophils # (Auto) 0.0 x10^3/uL (0.0-0.7) Basophils # (Auto) 0.0 x10^3/uL (0.0-0.2) O2 Saturation 98 % (92-99) Arterial Blood pH 7.38 (7.35-7.45) Arterial Blood pCO2 at Patient Temp 45 mmHg (35-46) Arterial Blood pO2 at Patient Temp 102 mmHg (65-108) Arterial Blood HCO3 26 mmol/L (21-28) Arterial Blood Base Excess 1 mmol/L (-3-3) FiO2 40 Laboratory Tests Test 02/14/20 14:35 02/15/20 05:00 02/15/20 07:40 Sodium Level 142 mmol/L (136-145) 139 mmol/L (136-145) Potassium Level 3.5 mmol/L (3.5-5.1) 3.7 mmol/L (3.5-5.1) Chloride Level 107 mmol/L (98-107) 105 mmol/L (98-107) Carbon Dioxide Level 28 mmol/L (21-32) 31 mmol/L (21-32) Anion Gap 7 (6-14) 3 (6-14) Blood Urea Nitrogen 14 mg/dL (8-26) 13 mg/dL (8-26) Creatinine 0.7 mg/dL (0.7-1.3) 0.7 mg/dL (0.7-1.3) Estimated GFR (Cockcroft-Gault) 113.5 113.5 Glucose Level 127 mg/dL (70-99) 145 mg/dL (70-99) Calcium Level 8.2 mg/dL (8.5-10.1) 8.0 mg/dL (8.5-10.1) Magnesium Level 2.2 mg/dL (1.8-2.4) White Blood Count 12.4 x10^3/uL (4.0-11.0) Red Blood Count 4.49 x10^6/uL (4.30-5.70) Hemoglobin 13.5 g/dL (13.0-17.5) Hematocrit 39.8 % (39.0-53.0) Mean Corpuscular Volume 89 fL (79-100) Mean Corpuscular Hemoglobin 30 pg (25-35) Mean Corpuscular Hemoglobin Concent 34 g/dL (31-37) Red Cell Distribution Width 13.8 % (11.5-14.5) Platelet Count 202 x10^3/uL (140-400) Neutrophils (%) (Auto) 79 % (31-73) Lymphocytes (%) (Auto) 10 % (24-48) Monocytes (%) (Auto) 10 % (0-9) Eosinophils (%) (Auto) 0 % (0-3) Basophils (%) (Auto) 0 % (0-3) Neutrophils # (Auto) 9.8 x10^3/uL (1.8-7.7) Lymphocytes # (Auto) 1.3 x10^3/uL (1.0-4.8) Monocytes # (Auto) 1.3 x10^3/uL (0.0-1.1) Eosinophils # (Auto) 0.0 x10^3/uL (0.0-0.7) Basophils # (Auto) 0.0 x10^3/uL (0.0-0.2) O2 Saturation 98 % (92-99) Arterial Blood pH 7.38 (7.35-7.45) Arterial Blood pCO2 at Patient Temp 45 mmHg (35-46) Arterial Blood pO2 at Patient Temp 102 mmHg (65-108) Arterial Blood HCO3 26 mmol/L (21-28) Arterial Blood Base Excess 1 mmol/L (-3-3) FiO2 40 Medications Current Medications Nicardipine HCl 50 mg/Sodium Chloride 250 ml @ 12.5 mls/hr CONT PRN IV SEE I/O RECORD Last administered on 02/15/20at 09:14; Start 8/29/20 at 03:30 Ondansetron HCl (Zofran) 8 mg 1X ONCE IVP Last administered on 02/14/20at 03:48; Start 02/14/20 at 04:00; Stop 02/14/20 at 04:01; Status DC Metoclopramide HCl (Reglan Vial) 10 mg STK-MED ONCE .ROUTE ; Start 02/14/20 at 0 4:00; Stop 02/14/20 at 04:00; Status DC Diphenhydramine HCl (Benadryl) 50 mg STK-MED ONCE .ROUTE ; Start 02/14/20 at 04:02; Stop 02/14/20 at 04:02; Status DC Hydromorphone HCl (Dilaudid) 2 mg STK-MED ONCE .ROUTE ; Start 02/14/20 at 04:02; Stop 02/14/20 at 04:03; Status DC Lidocaine HCl (Lidocaine 1% 20ml Vial) 20 ml STK-MED ONCE .ROUTE ; Start 02/14/20 at 04:11; Stop 02/14/20 at 04:12; Status DC Ondansetron HCl (Zofran) 4 mg PRN Q8HRS PRN IV NAUSEA/VOMITING 1ST CHOICE; Start 02/14/20 at 04:45; Stop 02/15/20 at 04:44; Status DC Morphine Sulfate (Morphine Sulfate) 4 mg PRN Q2HR PRN IV SEVERE PAIN 7-10; Start 02/14/20 at 04:45; Stop 02/15/20 at 04:44; Status DC Rocuronium [place] (Zemuron) 100 mg 1X ONCE IV Last administered on 02/14/20at 04:56; Start 02/14/20 at 05:00; Stop 02/14/20 at 05:01; Status DC Etomidate (Amidate) 20 mg 1X ONCE IV Last administered on 02/14/20at 04:56; Start 02/14/20 at 05:00; Stop 02/14/20 at 05:01; Status DC Fentanyl Citrate (Fentanyl 2ml Vial) 100 mcg 1X ONCE IVP Last administered on 02/14/20at 04:55; Start 02/14/20 at 05:00; Stop 02/14/20 at 05:01; Status DC Propofol (Diprivan) 200 mg STK-MED ONCE IV ; Start 02/14/20 at 05:02; Stop 02/14/20 at 05:03; Status DC Propofol 50 ml @ As Directed STK-MED ONCE IV ; Start 02/14/20 at 05:03; Stop 02/14/20 at 05:03; Status DC Propofol (Diprivan) 200 mg 1X ONCE IV ; Start 02/14/20 at 05:30; Stop 02/14/20 at 05:31; Status DC Vancomycin HCl 250 ml @ 250 mls/hr PREOP PRN PRN IV PREOP Last administered on 02/14/20at 06:48; Start 02/14/20 at 06:00; Stop 02/15/20 at 05:59; Status DC Propofol 100 ml @ 0 mls/hr CONT PRN IV SEE I/O RECORD Last administered on at 11:30; Start 02/14/20 at 06:30 Fentanyl Citrate (Fentanyl 2ml Vial) 50 mcg 1X ONCE IVP Last administered on 02/14/20at 06:48; Start 02/14/20 at 07:00; Stop 02/14/20 at 07:01; Status DC Lidocaine HCl (Xylocaine-Mpf 1% 2ml Vial) 2 ml STK-MED ONCE .ROUTE ; Start 02/14/20 at 06:43; Stop 02/14/20 at 06:43; Status DC Fentanyl Citrate (Fentanyl 2ml Vial) 50 mcg 1X ONCE IVP Last administered on 02/14/20at 07:23; Start 02/14/20 at 07:30; Stop 02/14/20 at 07:31; Status DC Fentanyl Citrate 30 ml @ 2.5 mls/hr CONT PRN IV SEE PROTOCOL Last administered on 02/15/20at 09:14; Start 02/14/20 at 07:30 Fentanyl Citrate (Fentanyl 2ml Vial) 25 mcg PRN Q1HR PRN IV SEE COMMENTS; Start 02/14/20 at 07:30 Fentanyl Citrate (Fentanyl 2ml Vial) 50 mcg PRN Q1HR PRN IV SEE COMMENTS; Start 02/14/20 at 07:30 Famotidine (Pepcid Vial) 20 mg BID IVP ; Start 02/14/20 at 21:00; Stop 02/14/20 at 16:18; Status DC Potassium Chloride/Dextrose/ Sod Cl 1,000 ml @ 50 mls/hr Q20H IV Last administered on 02/15/20at 07:59; Start 02/14/20 at 11:30 Pantoprazole Sodium (PROTONIX VIAL for IV PUSH) 40 mg DAILYAC IVP Last administered on 02/15/20at 07:28; Start 02/15/20 at 07:30 Active Scripts Active Reported Flomax (Tamsulosin Hcl) 0.4 Mg Cap.er.24h 1 Cap PO DAILY Vitals/I & O Vital Sign - Last 24 Hours 02/14/20 02/14/20 02/14/20 02/14/20 11:00 11:51 11:51 12:00 Temp 98.0 98.0 Pulse 53 54 Resp 22 22 B/P (MAP) 140/60 (86) 143/53 (83) Pulse Ox 100 100 100 O2 Delivery Ventilator Ventilator Mechanical Ventilator Ventilator 02/14/20 02/14/20 02/14/20 02/14/20 12:00 13:00 14:00 14:35 Pulse 52 55 Resp 22 22 B/P (MAP) 152/60 (90) 113/55 (74) 120/60 (80) Pulse Ox 100 100 O2 Delivery Ventilator Ventilator 02/14/20 02/14/20 02/14/20 02/14/20 15:00 15:15 15:30 16:00 Temp 98.3 98.3 Pulse 62 70 Resp 22 22 B/P (MAP) 150/63 (92) 153/60 (91) 151/63 (92) 141/62 (88) Pulse Ox 100 100 O2 Delivery Ventilator Ventilator 02/14/20 02/14/20 02/14/20 02/14/20 16:00 16:00 16:51 17:00 Pulse 68 Resp 22 B/P (MAP) 131/55 (80) Pulse Ox 98 100 O2 Delivery Mechanical Ventilator Ventilator Ventilator 02/14/20 02/14/20 02/14/20 02/14/20 18:00 19:00 19:56 19:56 Pulse 67 78 Resp 22 22 B/P (MAP) 131/56 (81) 127/56 (79) Pulse Ox 100 97 O2 Delivery Ventilator Ventilator Mechanical Ventilator 02/14/20 02/14/20 02/14/20 02/14/20 20:00 20:18 21:00 22:00 Temp 99.4 99.4 Pulse 71 71 71 Resp 22 22 22 B/P (MAP) 125/54 (77) 126/56 (79) 123/58 (79) Pulse Ox 97 97 97 98 O2 Delivery Ventilator Ventilator Ventilator Ventilator 02/14/20 02/15/20 02/15/20 02/15/20 23:00 00:00 00:00 00:52 Temp 99.5 99.5 Pulse 67 Resp 22 B/P (MAP) 124/58 (80) Pulse Ox 98 97 O2 Delivery Ventilator Mechanical Ventilator Ventilator 02/15/20 02/15/20 02/15/20 02/15/20 01:00 02:00 03:00 03:40 Pulse 59 58 61 Resp 22 B/P (MAP) 134/61 (85) 148/64 (92) 143/61 (88) Pulse Ox 98 98 98 98 O2 Delivery Ventilator Ventilator Ventilator Ventilator 02/15/20 02/15/20 02/15/20 02/15/20 04:00 04:15 04:15 05:00 Temp 99.3 99.3 Pulse 64 62 Resp 22 22 B/P (MAP) 140/60 (86) 144/60 (88) Pulse Ox 98 97 O2 Delivery Ventilator Mechanical Ventilator Ventilator 02/15/20 02/15/20 02/15/20 02/15/20 06:00 07:00 07:36 07:39 Pulse 64 61 Resp 22 22 B/P (MAP) 128/64 (85) 134/59 (84) Pulse Ox 97 97 97 O2 Delivery Ventilator Ventilator Ventilator Mechanical Ventilator 02/15/20 02/15/20 02/15/20 02/15/20 07:46 08:00 09:00 10:00 Temp 99.6 99.6 Pulse 65 67 70 Resp 22 22 22 B/P (MAP) 136/60 (85) 148/60 (89) 137/57 (83) Pulse Ox 98 98 97 O2 Delivery Ventilator Ventilator Ventilator 02/15/20 10:52 Pulse 75 Resp 22 B/P (MAP) 136/58 (84) Pulse Ox 96 O2 Delivery Ventilator Intake and Output 02/14/20 02/14/20 02/15/20 15:00 23:00 07:00 Intake Total 250 ml 914 ml 1012 ml Output Total 1860 ml 661 ml 859 ml Balance -1610 ml 253 ml 153 ml Justicifation of Admission Dx: Justifications for Admission: Justification of Admission Dx: Yes Acute Hemorrhagic Stroke: Acute Hemorrhagic Stroke ROSA NORTH MD Feb 15, 2020 10:55
--- NOTE | 2020-02-15 13:35 | PDOC2 ---
CONSULT Date of Consult Date of Consult DATE: 02/15/20 TIME: 13:27 Reason for Consult Reason for Consult: Accelerated hypertension Referring Physician Referring Physician: Dr. Land Identification/Chief Complaint Chief Complaint Headache Source Source: Chart review History of Present Illness Reason for Visit: The patient is a 64-year-old male who was admitted through the emergency room for episodes of increasing headaches. He has a history of a CVA as well as hyperlipidemia. CT scan showed an acute intra-parenchymal hemorrhage. The patient was evaluated by the neurosurgical service and a right frontal ventriculostomy was placed. He also had significant hypertension during this time and was placed on IV Cardene with good blood pressure control resulting. He was also intubated in the emergency room secondary to respiratory failure due to his hemorrhage. This morning the patient is intubated and being monitored in the ICU. Pulse is 68 with a blood pressure 140/62. He has been followed by the pulmonary service, neurosurgery and neurology. Past Medical History Cardiovascular: Hyperlipidemia CENTRAL NERVOUS SYSTEM: CVA Past Surgical History Past Surgical History: Hernia Repair Family History Family History: High Cholestrol, Hypertension Social History <1 pack per day ALCOHOL: none Drugs: None Current Problem List Problem List Problems Medical Problems: (1) Intraparenchymal hemorrhage of brain Status: Acute Current Medications Current Medications Current Medications Nicardipine HCl 50 mg/Sodium Chloride 250 ml @ 12.5 mls/hr CONT PRN IV SEE I/O RECORD Last administered on 02/15/20at 09:14; Start 02/14/20 at 03:30 Ondansetron HCl (Zofran) 8 mg 1X ONCE IVP Last administered on 02/14/20at 03:48; Start 02/14/20 at 04:00; Stop 02/14/20 at 04:01; Status DC Metoclopramide HCl (Reglan Vial) 10 mg STK-MED ONCE .ROUTE ; Start 02/14/20 at 04:00; Stop 02/14/20 at 04:00; Status DC Diphenhydramine HCl (Benadryl) 50 mg STK-MED ONCE .ROUTE ; Start 02/14/20 at 04:02; Stop 02/14/20 at 04:02; Status DC Hydromorphone HCl (Dilaudid) 2 mg STK-MED ONCE .ROUTE ; Start 02/14/20 at 04:02; Stop 02/14/20 at 04:03; Status DC Lidocaine HCl (Lidocaine 1% 20ml Vial) 20 ml STK-MED ONCE .ROUTE ; Start 02/14/20 at 04:11; Stop 02/14/20 at 04:12; Status DC Ondansetron HCl (Zofran) 4 mg PRN Q8HRS PRN IV NAUSEA/VOMITING 1ST CHOICE; Start 02/14/20 at 04:45; Stop 02/15/20 at 04:44; Status DC Morphine Sulfate (Morphine Sulfate) 4 mg PRN Q2HR PRN IV SEVERE PAIN 7-10; Start 02/14/20 at 04:45; Stop 02/15/20 at 04:44; Status DC Rocuronium [place] (Zemuron) 100 mg 1X ONCE IV Last administered on 02/14/20at 04:56; Start 02/14/20 at 05:00; Stop 02/14/20 at 05:01; Status DC Etomidate (Amidate) 20 mg 1X ONCE IV Last administered on 02/14/20at 04:56; S tart 02/14/20 at 05:00; Stop 02/14/20 at 05:01; Status DC Fentanyl Citrate (Fentanyl 2ml Vial) 100 mcg 1X ONCE IVP Last administered on 02/14/20at 04:55; Start 02/14/20 at 05:00; Stop 02/14/20 at 05:01; Status DC Propofol (Diprivan) 200 mg STK-MED ONCE IV ; Start 02/14/20 at 05:02; Stop 02/14/20 at 05:03; Status DC Propofol 50 ml @ As Directed STK-MED ONCE IV ; Start 02/14/20 at 05:03; Stop 02/14/20 at 05:03; Status DC Propofol (Diprivan) 200 mg 1X ONCE IV ; Start 02/14/20 at 05:30; Stop 02/14/20 at 05:31; Status DC Vancomycin HCl 250 ml @ 250 mls/hr PREOP PRN PRN IV PREOP Last administered on 02/14/20at 06:48; Start 02/14/20 at 06:00; Stop 02/15/20 at 05:59; Status DC Propofol 100 ml @ 0 mls/hr CONT PRN IV SEE I/O RECORD Last administered on 02/14/20at 11:30; Start 02/14/20 at 06:30 Fentanyl Citrate (Fentanyl 2ml Vial) 50 mcg 1X ONCE IVP Last administered on 02/14/20at 06:48; Start 02/14/20 at 07:00; Stop 02/14/20 at 07:01; Status DC Lidocaine HCl (Xylocaine-Mpf 1% 2ml Vial) 2 ml STK-MED ONCE .ROUTE ; Start 02/14/20 at 06:43; Stop 02/14/20 at 06:43; Status DC Fentanyl Citrate (Fentanyl 2ml Vial) 50 mcg 1X ONCE IVP Last administered on 02/14/20at 07:23; Start 02/14/20 at 07:30; Stop 02/14/20 at 07:31; Status DC Fentanyl Citrate 30 ml @ 2.5 mls/hr CONT PRN IV SEE PROTOCOL Last administered on 02/15/20at 09:14; Start 02/14/20 at 07:30 Fentanyl Citrate (Fentanyl 2ml Vial) 25 mcg PRN Q1HR PRN IV SEE COMMENTS; Start 02/14/20 at 07:30 Fentanyl Citrate (Fentanyl 2ml Vial) 50 mcg PRN Q1HR PRN IV SEE COMMENTS; Start 02/14/20 at 07:30 Famotidine (Pepcid Vial) 20 mg BID IVP ; Start 02/14/20 at 21:00; Stop 02/14/20 at 16:18; Status DC Potassium Chloride/Dextrose/ Sod Cl 1,000 ml @ 50 mls/hr Q20H IV Last administered on 02/15/20at 07:59; Start 02/14/20 at 11:30 Pantoprazole Sodium (PROTONIX VIAL for IV PUSH) 40 mg DAILYAC IVP Last administered on 02/15/20at 07:28; Start 02/15/20 at 07:30 Active Scripts Active Reported Flomax (Tamsulosin Hcl) 0.4 Mg Cap.er.24h 1 Cap PO DAILY Allergies Allergies: Coded Allergies: Penicillins (Verified Allergy, Severe, Rash, 02/14/20) ROS Review of System The patient is intubated. Physical Exam General: Other (Intubated) Lungs: Other (Mildly decreased breath sounds) Heart: Regular rate Abdomen: Normal bowel sounds Vitals VITALS Vital Signs Date Time Temp Pulse Resp B/P (MAP) Pulse Ox O2 Delivery O2 Flow Rate FiO2 02/15/20 13:00 73 22 136/58 (84) 96 Ventilator 02/15/20 12:00 98.8 98.8 Labs Labs Laboratory Tests Test 02/14/20 03:21 02/14/20 03:30 02/14/20 09:45 02/14/20 10:00 Glucose (Fingerstick) 119 mg/dL (70-99) White Blood Count 11.3 x10^3/uL (4.0-11.0) Red Blood Count 4.58 x10^6/uL (4.30-5.70) Hemoglobin 13.6 g/dL (13.0-17.5) Hematocrit 40.4 % (39.0-53.0) Mean Corpuscular Volume 88 fL (79-100) Mean Corpuscular Hemoglobin 30 pg (25-35) Mean Corpuscular Hemoglobin Concent 34 g/dL (31-37) Red Cell Distribution Width 13.9 % (11.5-14.5) Platelet Count 226 x10^3/uL (140-400) Neutrophils (%) (Auto) 76 % (31-73) Lymphocytes (%) (Auto) 14 % (24-48) Monocytes (%) (Auto) 9 % (0-9) Eosinophils (%) (Auto) 1 % (0-3) Basophils (%) (Auto) 0 % (0-3) Neutrophils # (Auto) 8.6 x10^3/uL (1.8-7.7) Lymphocytes # (Auto) 1.6 x10^3/uL (1.0-4.8) Monocytes # (Auto) 1.0 x10^3/uL (0.0-1.1) Eosinophils # (Auto) 0.1 x10^3/uL (0.0-0.7) Basophils # (Auto) 0.0 x10^3/uL (0.0-0.2) Prothrombin Time 12.8 SEC (11.7-14.0) Prothromb Time International Ratio 1.0 (0.8-1.1) Sodium Level 140 mmol/L (136-145) Potassium Level 4.0 mmol/L (3.5-5.1) Chloride Level 106 mmol/L (98-107) Carbon Dioxide Level 28 mmol/L (21-32) Anion Gap 6 (6-14) Blood Urea Nitrogen 18 mg/dL (8-26) Creatinine 1.0 mg/dL (0.7-1.3) Estimated GFR (Cockcroft-Gault) 75.2 BUN/Creatinine Ratio 18 (6-20) Glucose Level 119 mg/dL (70-99) Calcium Level 8.9 mg/dL (8.5-10.1) Total Bilirubin 0.4 mg/dL (0.2-1.0) Aspartate Amino Transf (AST/SGOT) 17 U/L (15-37) Alanine Aminotransferase (ALT/SGPT) 18 U/L (16-63) Alkaline Phosphatase 109 U/L (46-116) Troponin I Quantitative < 0.017 ng/mL (0.000-0.055) Total Protein 7.3 g/dL (6.4-8.2) Albumin 3.3 g/dL (3.4-5.0) Albumin/Globulin Ratio 0.8 (1.0-1.7) O2 Saturation 99 % (92-99) Arterial Blood pH 7.38 (7.35-7.45) Arterial Blood pCO2 at Patient Temp 43 mmHg (35-46) Arterial Blood pO2 at Patient Temp 450 mmHg (65-108) Arterial Blood HCO3 25 mmol/L (21-28) Arterial Blood Base Excess -1 mmol/L (-3-3) FiO2 100 Urine Collection Type Unknown Urine Color Yellow Urine Clarity Clear Urine pH 7.0 (<5.0-8.0) Urine Specific [place] 1.010 (1.000-1.030) Urine Protein Negative mg/dL (NEG-TRACE) Urine Glucose (UA) Negative mg/dL (NEG) Urine Ketones (Stick) Negative mg/dL (NEG) Urine Blood Moderate (NEG) Urine Nitrite Negative (NEG) Urine Bilirubin Negative (NEG) Urine Urobilinogen Dipstick 1.0 mg/dL (0.2 mg/dL) Urine Leukocyte Esterase Negative (NEG) Urine RBC 11-20 /HPF (0-2) Urine WBC 0 /HPF (0-4) Urine Bacteria 0 /HPF (0-FEW) Test 02/14/20 14:35 02/15/20 05:00 02/15/20 07:40 Sodium Level 142 mmol/L (136-145) 139 mmol/L (136-145) Potassium Level 3.5 mmol/L (3.5-5.1) 3.7 mmol/L (3.5-5.1) Chloride Level 107 mmol/L (98-107) 105 mmol/L (98-107) Carbon Dioxide Level 28 mmol/L (21-32) 31 mmol/L (21-32) Anion Gap 7 (6-14) 3 (6-14) Blood Urea Nitrogen 14 mg/dL (8-26) 13 mg/dL (8-26) Creatinine 0.7 mg/dL (0.7-1.3) 0.7 mg/dL (0.7-1.3) Estimated GFR (Cockcroft-Gault) 113.5 113.5 Glucose Level 127 mg/dL (70-99) 145 mg/dL (70-99) Calcium Level 8.2 mg/dL (8.5-10.1) 8.0 mg/dL (8.5-10.1) Magnesium Level 2.2 mg/dL (1.8-2.4) White Blood Count 12.4 x10^3/uL (4.0-11.0) Red Blood Count 4.49 x10^6/uL (4.30-5.70) Hemoglobin 13.5 g/dL (13.0-17.5) Hematocrit 39.8 % (39.0-53.0) Mean Corpuscular Volume 89 fL (79-100) Mean Corpuscular Hemoglobin 30 pg (25-35) Mean Corpuscular Hemoglobin Concent 34 g/dL (31-37) Red Cell Distribution Width 13.8 % (11.5-14.5) Platelet Count 202 x10^3/uL (140-400) Neutrophils (%) (Auto) 79 % (31-73) Lymphocytes (%) (Auto) 10 % (24-48) Monocytes (%) (Auto) 10 % (0-9) Eosinophils (%) (Auto) 0 % (0-3) Basophils (%) (Auto) 0 % (0-3) Neutrophils # (Auto) 9.8 x10^3/uL (1.8-7.7) Lymphocytes # (Auto) 1.3 x10^3/uL (1.0-4.8) Monocytes # (Auto) 1.3 x10^3/uL (0.0-1.1) Eosinophils # (Auto) 0.0 x10^3/uL (0.0-0.7) Basophils # (Auto) 0.0 x10^3/uL (0.0-0.2) O2 Saturation 98 % (92-99) Arterial Blood pH 7.38 (7.35-7.45) Arterial Blood pCO2 at Patient Temp 45 mmHg (35-46) Arterial Blood pO2 at Patient Temp 102 mmHg (65-108) Arterial Blood HCO3 26 mmol/L (21-28) Arterial Blood Base Excess 1 mmol/L (-3-3) FiO2 40 Laboratory Tests Test 02/14/20 14:35 02/15/20 05:00 02/15/20 07:40 Sodium Level 142 mmol/L (136-145) 139 mmol/L (136-145) Potassium Level 3.5 mmol/L (3.5-5.1) 3.7 mmol/L (3.5-5.1) Chloride Level 107 mmol/L (98-107) 105 mmol/L (98-107) Carbon Dioxide Level 28 mmol/L (21-32) 31 mmol/L (21-32) Anion Gap 7 (6-14) 3 (6-14) Blood Urea Nitrogen 14 mg/dL (8-26) 13 mg/dL (8-26) Creatinine 0.7 mg/dL (0.7-1.3) 0.7 mg/dL (0.7-1.3) Estimated GFR (Cockcroft-Gault) 113.5 113.5 Glucose Level 127 mg/dL (70-99) 145 mg/dL (70-99) Calcium Level 8.2 mg/dL (8.5-10.1) 8.0 mg/dL (8.5-10.1) Magnesium Level 2.2 mg/dL (1.8-2.4) White Blood Count 12.4 x10^3/uL (4.0-11.0) Red Blood Count 4.49 x10^6/uL (4.30-5.70) Hemoglobin 13.5 g/dL (13.0-17.5) Hematocrit 39.8 % (39.0-53.0) Mean Corpuscular Volume 89 fL (79-100) Mean Corpuscular Hemoglobin 30 pg (25-35) Mean Corpuscular Hemoglobin Concent 34 g/dL (31-37) Red Cell Distribution Width 13.8 % (11.5-14.5) Platelet Count 202 x10^3/uL (140-400) Neutrophils (%) (Auto) 79 % (31-73) Lymphocytes (%) (Auto) 10 % (24-48) Monocytes (%) (Auto) 10 % (0-9) Eosinophils (%) (Auto) 0 % (0-3) Basophils (%) (Auto) 0 % (0-3) Neutrophils # (Auto) 9.8 x10^3/uL (1.8-7.7) Lymphocytes # (Auto) 1.3 x10^3/uL (1.0-4.8) Monocytes # (Auto) 1.3 x10^3/uL (0.0-1.1) Eosinophils # (Auto) 0.0 x10^3/uL (0.0-0.7) Basophils # (Auto) 0.0 x10^3/uL (0.0-0.2) O2 Saturation 98 % (92-99) Arterial Blood pH 7.38 (7.35-7.45) Arterial Blood pCO2 at Patient Temp 45 mmHg (35-46) Arterial Blood pO2 at Patient Temp 102 mmHg (65-108) Arterial Blood HCO3 26 mmol/L (21-28) Arterial Blood Base Excess 1 mmol/L (-3-3) FiO2 [address] scan as above showed an acute intraparenchymal hemorrhage Assessment/Plan Assessment/Plan 1. Acute intraparenchymal hemorrhage. Has been seen by both neurosurgery and neurology. A right frontal ventriculostomy has been placed. The patient continues to be followed in the ICU. 2. Respiratory failure secondary to #1. Patient was intubated in the emergency room. He remains on a ventilator. He is followed by the pulmonary service. 3. Accelerated hypertension. Severe hypertension on admission. Patient been treated with Cardene with good control with a blood pressure now of 140/62. We will continue on Cardene at this time and adjust as per the neurosurgery and neurology services. 4. History of hyperlipidemia. Will check labs and monitor. Thank you for allowing us to participate in the care of your patient LINDSEY HILL MD Feb 15, 2020 13:35
[2020-02-15 15:13] LABS: BASE EXCESS ABG 3 mmol/L (-3-3); HCO3 ABG 29 mmol/L (21-28); PCO2 ABG 49 mmHg (35-46); PO2 ABG 98 mmHg (65-108); SAT O2 ABG 98 % (92-99)
[2020-02-15 15:14] LABS: FIO2 ABG 40
--- NOTE | 2020-02-15 15:43 | NUR ---
Dr. Jones rounded on patient, patient was alert on the ventilator, discussed with Dr. Billings about potentially extubating. Patient was placed on SBT at 1435, ABG drawn after 30 minutes and results sent to Dr. Billings. Patient was alert, following commands, and had a good cough and gag while on the ventilator. Patient extubated at 1515 to 5L NC. The ventriculostomy drain was temporarily clamped to extubate, ICP during that time was 8-10. After extubation, patient's ventriculostomy was opened again, ICP went to 6. Patient fell asleep shortly after extubation, but still had all the reflexes he had prior to extubation and will open his eyes. Rosa [employer], called unit to order vancomycin 1 gram q 12 hours while the ventriculostomy is in, updated on extubation and condition, received the order to keep the soft limb restraint on patient. Patient's daughters at bedside, aware of the need to keep restraint on.
[2020-02-15] MEDS ORDERED: VANCOMYCIN PER PHARMACY MC PRN (16:15)
[2020-02-15] MEDS: VANCOMYCIN 1 GM in IV NORMAL SALINE 250ML 250 ML IV SCH (16:29)
--- NOTE | 2020-02-15 18:54 | NUR ---
Patient woke up at 1800 and was severely agitated, eyes opened, pulling his right arm against the restraint and raising his body off the bed, causing his ICP to increase to 10-12, able to reorient for brief periods of time but quickly becomes agitated again. Heber Lee NP, regarding orders, received the order for 25 mcg fentanyl IVP PRN q1 HR, and if it doesn't work then call her back.
[2020-02-15] MEDS ORDERED: fentaNYL PF VIAL 100 MCG/2 ML VIAL IV ONE (19:00)
--- NOTE | 2020-02-15 20:00 | NUR ---
ICP drain leveled at drain insertion site per Dr Jones, HOB to be at 25degrees and patient not to be turned; CF fluid serosang. Patient has left radial arterial line for lab draw and continuous close BP monitoring to keep SBP<150. BP will be documented under vital sign intervention hourly and arterial line intervention Q4HRS to avoid double charting. Addendum: 02/16/20 at 0208 by RONALDO LEE RN Amended: Links added.
--- NOTE | 2020-02-15 20:00 | NUR ---
Dr Rice at bedside for assessment, no new orders at this time.
--- NOTE | 2020-02-15 20:10 | PDOC ---
PROGRESS NOTES Date of Service DATE: 02/15/20 TIME: 20:05 Subjective Subjective patient seen and examined at 1400 supine in bed ICP <10 cm H20, EVD in place, draining opened eyes, awake, would follow simple commands left hemiparesis follows commands on the right D/W Dr. Billings, wean from vent as tolerated SCDs Objective Objective Vital Signs Date Time Temp Pulse Resp B/P (MAP) Pulse Ox O2 Delivery O2 Flow Rate FiO2 02/15/20 18:54 18 93 Nasal Cannula 5.0 02/15/20 18:00 85 126/61 (82) 02/15/20 16:00 98.8 98.8 Intake and Output 02/15/20 07:00 Intake Total 2176 ml Output Total 3380 ml Balance -1204 ml Intake IV Total 2176 ml Output Urine Total 3015 ml Drainage Total 365 ml Assessment Assessment Problems Medical Problems: (1) Intraparenchymal hemorrhage of brain Status: Acute Comment Review of Relevant I have reviewed the following items faraz (where applicable) has been applied. Labs Laboratory Tests Test 02/14/20 03:21 02/14/20 03:30 02/14/20 09:45 02/14/20 10:00 Glucose (Fingerstick) 119 mg/dL (70-99) White Blood Count 11.3 x10^3/uL (4.0-11.0) Red Blood Count 4.58 x10^6/uL (4.30-5.70) Hemoglobin 13.6 g/dL (13.0-17.5) Hematocrit 40.4 % (39.0-53.0) Mean Corpuscular Volume 88 fL (79-100) Mean Corpuscular Hemoglobin 30 pg (25-35) Mean Corpuscular Hemoglobin Concent 34 g/dL (31-37) Red Cell Distribution Width 13.9 % (11.5-14.5) Platelet Count 226 x10^3/uL (140-400) Neutrophils (%) (Auto) 76 % (31-73) Lymphocytes (%) (Auto) 14 % (24-48) Monocytes (%) (Auto) 9 % (0-9) Eosinophils (%) (Auto) 1 % (0-3) Basophils (%) (Auto) 0 % (0-3) Neutrophils # (Auto) 8.6 x10^3/uL (1.8-7.7) Lymphocytes # (Auto) 1.6 x10^3/uL (1.0-4.8) Monocytes # (Auto) 1.0 x10^3/uL (0.0-1.1) Eosinophils # (Auto) 0.1 x10^3/uL (0.0-0.7) Basophils # (Auto) 0.0 x10^3/uL (0.0-0.2) Prothrombin Time 12.8 SEC (11.7-14.0) Prothromb Time International Ratio 1.0 (0.8-1.1) Sodium Level 140 mmol/L (136-145) Potassium Level 4.0 mmol/L (3.5-5.1) Chloride Level 106 mmol/L (98-107) Carbon Dioxide Level 28 mmol/L (21-32) Anion Gap 6 (6-14) Blood Urea Nitrogen 18 mg/dL (8-26) Creatinine 1.0 mg/dL (0.7-1.3) Estimated GFR (Cockcroft-Gault) 75.2 BUN/Creatinine Ratio 18 (6-20) Glucose Level 119 mg/dL (70-99) Calcium Level 8.9 mg/dL (8.5-10.1) Total Bilirubin 0.4 mg/dL (0.2-1.0) Aspartate Amino Transf (AST/SGOT) 17 U/L (15-37) Alanine Aminotransferase (ALT/SGPT) 18 U/L (16-63) Alkaline Phosphatase 109 U/L (46-116) Troponin I Quantitative < 0.017 ng/mL (0.000-0.055) Total Protein 7.3 g/dL (6.4-8.2) Albumin 3.3 g/dL (3.4-5.0) Albumin/Globulin Ratio 0.8 (1.0-1.7) O2 Saturation 99 % (92-99) Arterial Blood pH 7.38 (7.35-7.45) Arterial Blood pCO2 at Patient Temp 43 mmHg (35-46) Arterial Blood pO2 at Patient Temp 450 mmHg (65-108) Arterial Blood HCO3 25 mmol/L (21-28) Arterial Blood Base Excess -1 mmol/L (-3-3) FiO2 100 Urine Collection Type Unknown Urine Color Yellow Urine Clarity Clear Urine pH 7.0 (<5.0-8.0) Urine Specific [place] 1.010 (1.000-1.030) Urine Protein Negative mg/dL (NEG-TRACE) Urine Glucose (UA) Negative mg/dL (NEG) Urine Ketones (Stick) Negative mg/dL (NEG) Urine Blood Moderate (NEG) Urine Nitrite Negative (NEG) Urine Bilirubin Negative (NEG) Urine Urobilinogen Dipstick 1.0 mg/dL (0.2 mg/dL) Urine Leukocyte Esterase Negative (NEG) Urine RBC 11-20 /HPF (0-2) Urine WBC 0 /HPF (0-4) Urine Bacteria 0 /HPF (0-FEW) Test 02/14/20 14:35 02/15/20 05:00 02/15/20 07:40 02/15/20 15:05 Sodium Level 142 mmol/L (136-145) 139 mmol/L (136-145) Potassium Level 3.5 mmol/L (3.5-5.1) 3.7 mmol/L (3.5-5.1) Chloride Level 107 mmol/L (98-107) 105 mmol/L (98-107) Carbon Dioxide Level 28 mmol/L (21-32) 31 mmol/L (21-32) Anion Gap 7 (6-14) 3 (6-14) Blood Urea Nitrogen 14 mg/dL (8-26) 13 mg/dL (8-26) Creatinine 0.7 mg/dL (0.7-1.3) 0.7 mg/dL (0.7-1.3) Estimated GFR (Cockcroft-Gault) 113.5 113.5 Glucose Level 127 mg/dL (70-99) 145 mg/dL (70-99) Calcium Level 8.2 mg/dL (8.5-10.1) 8.0 mg/dL (8.5-10.1) Magnesium Level 2.2 mg/dL (1.8-2.4) White Blood Count 12.4 x10^3/uL (4.0-11.0) Red Blood Count 4.49 x10^6/uL (4.30-5.70) Hemoglobin 13.5 g/dL (13.0-17.5) Hematocrit 39.8 % (39.0-53.0) Mean Corpuscular Volume 89 fL (79-100) Mean Corpuscular Hemoglobin 30 pg (25-35) Mean Corpuscular Hemoglobin Concent 34 g/dL (31-37) Red Cell Distribution Width 13.8 % (11.5-14.5) Platelet Count 202 x10^3/uL (140-400) Neutrophils (%) (Auto) 79 % (31-73) Lymphocytes (%) (Auto) 10 % (24-48) Monocytes (%) (Auto) 10 % (0-9) Eosinophils (%) (Auto) 0 % (0-3) Basophils (%) (Auto) 0 % (0-3) Neutrophils # (Auto) 9.8 x10^3/uL (1.8-7.7) Lymphocytes # (Auto) 1.3 x10^3/uL (1.0-4.8) Monocytes # (Auto) 1.3 x10^3/uL (0.0-1.1) Eosinophils # (Auto) 0.0 x10^3/uL (0.0-0.7) Basophils # (Auto) 0.0 x10^3/uL (0.0-0.2) O2 Saturation 98 % (92-99) 98 % (92-99) Arterial Blood pH 7.38 (7.35-7.45) 7.38 (7.35-7.45) Arterial Blood pCO2 at Patient Temp 45 mmHg (35-46) 49 mmHg (35-46) Arterial Blood pO2 at Patient Temp 102 mmHg (65-108) 98 mmHg (65-108) Arterial Blood HCO3 26 mmol/L (21-28) 29 mmol/L (21-28) Arterial Blood Base Excess 1 mmol/L (-3-3) 3 mmol/L (-3-3) FiO2 40 40 Laboratory Tests Test 02/15/20 05:00 02/15/20 07:40 02/15/20 15:05 White Blood Count 12.4 x10^3/uL (4.0-11.0) Red Blood Count 4.49 x10^6/uL (4.30-5.70) Hemoglobin 13.5 g/dL (13.0-17.5) Hematocrit 39.8 % (39.0-53.0) Mean Corpuscular Volume 89 fL (79-100) Mean Corpuscular Hemoglobin 30 pg (25-35) Mean Corpuscular Hemoglobin Concent 34 g/dL (31-37) Red Cell Distribution Width 13.8 % (11.5-14.5) Platelet Count 202 x10^3/uL (140-400) Neutrophils (%) (Auto) 79 % (31-73) Lymphocytes (%) (Auto) 10 % (24-48) Monocytes (%) (Auto) 10 % (0-9) Eosinophils (%) (Auto) 0 % (0-3) Basophils (%) (Auto) 0 % (0-3) Neutrophils # (Auto) 9.8 x10^3/uL (1.8-7.7) Lymphocytes # (Auto) 1.3 x10^3/uL (1.0-4.8) Monocytes # (Auto) 1.3 x10^3/uL (0.0-1.1) Eosinophils # (Auto) 0.0 x10^3/uL (0.0-0.7) Basophils # (Auto) 0.0 x10^3/uL (0.0-0.2) Sodium Level 139 mmol/L (136-145) Potassium Level 3.7 mmol/L (3.5-5.1) Chloride Level 105 mmol/L (98-107) Carbon Dioxide Level 31 mmol/L (21-32) Anion Gap 3 (6-14) Blood Urea Nitrogen 13 mg/dL (8-26) Creatinine 0.7 mg/dL (0.7-1.3) Estimated GFR (Cockcroft-Gault) 113.5 Glucose Level 145 mg/dL (70-99) Calcium Level 8.0 mg/dL (8.5-10.1) O2 Saturation 98 % (92-99) 98 % (92-99) Arterial Blood pH 7.38 (7.35-7.45) 7.38 (7.35-7.45) Arterial Blood pCO2 at Patient Temp 45 mmHg (35-46) 49 mmHg (35-46) Arterial Blood pO2 at Patient Temp 102 mmHg (65-108) 98 mmHg (65-108) Arterial Blood HCO3 26 mmol/L (21-28) 29 mmol/L (21-28) Arterial Blood Base Excess 1 mmol/L (-3-3) 3 mmol/L (-3-3) FiO2 40 40 Medications Current Medications Nicardipine HCl 50 mg/Sodium Chloride 250 ml @ 12.5 mls/hr CONT PRN IV SEE I/O RECORD Last administered on 02/15/20at 16:30; Start 02/14/20 at 03:30 Ondansetron HCl (Zofran) 8 mg 1X ONCE IVP Last administered on 02/14/20at 03:48; Start 02/14/20 at 04:00; Stop 02/14/20 at 04:01; Status DC Metoclopramide HCl (Reglan Vial) 10 mg STK-MED ONCE .ROUTE ; Start 02/14/20 at 04:00; Stop 02/14/20 at 04:00; Status DC Diphenhydramine HCl (Benadryl) 50 mg STK-MED ONCE .ROUTE ; Start 02/14/20 at 04:02; Stop 02/14/20 at 04:02; Status DC Hydromorphone HCl (Dilaudid) 2 mg STK-MED ONCE .ROUTE ; Start 02/14/20 at 04:02; Stop 02/14/20 at 04:03; Status DC Lidocaine HCl (Lidocaine 1% 20ml Vial) 20 ml STK-MED ONCE .ROUTE ; Start 02/14/20 at 04:11; Stop 02/14/20 at 04:12; Status DC Ondansetron HCl (Zofran) 4 mg PRN Q8HRS PRN IV NAUSEA/VOMITING 1ST CHOICE; Start 02/14/20 at 04:45; Stop 02/15/20 at 04:44; Status DC Morphine Sulfate (Morphine Sulfate) 4 mg PRN Q2HR PRN IV SEVERE PAIN 7-10; Start 02/14/20 at 04:45; Stop 02/15/20 at 04:44; Status DC Rocuronium [place] (Zemuron) 100 mg 1X ONCE IV Last administered on 02/14/20at 04:56; Start 02/14/20 at 05:00; Stop 02/14/20 at 05:01; Status DC Etomidate (Amidate) 20 mg 1X ONCE IV Last administered on 02/14/20at 04:56; Start 02/14/20 at 05:00; Stop 02/14/20 at 05:01; Status DC Fentanyl Citrate (Fentanyl 2ml Vial) 100 mcg 1X ONCE IVP Last administered on 02/14/20at 04:55; Start 02/14/20 at 05:00; Stop 02/14/20 at 05:01; Status DC Propofol (Diprivan) 200 mg STK-MED ONCE IV ; Start 02/14/20 at 05:02; Stop 02/14/20 at 05:03; Status DC Propofol 50 ml @ As Directed STK-MED ONCE IV ; Start 02/14/20 at 05:03; Stop 02/14/20 at 05:03; Status DC Propofol (Diprivan) 200 mg 1X ONCE IV ; Start 02/14/20 at 05:30; Stop 02/14/20 at 05:31; Status DC Vancomycin HCl 250 ml @ 250 mls/hr PREOP PRN PRN IV PREOP Last administered on 02/14/20at 06:48; Start 02/14/20 at 06:00; Stop 02/15/20 at 05:59; Status DC Propofol 100 ml @ 0 mls/hr CONT PRN IV SEE I/O RECORD Last administered on 02/14/20at 11:30; Start 02/14/20 at 06:30 Fentanyl Citrate (Fentanyl 2ml Vial) 50 mcg 1X ONCE IVP Last administered on 02/14/20at 06:48; Start 02/14/20 at 07:00; Stop 02/14/20 at 07:01; Status DC Lidocaine HCl (Xylocaine-Mpf 1% 2ml Vial) 2 ml STK-MED ONCE .ROUTE ; Start 02/14/20 at 06:43; Stop 02/14/20 at 06:43; Status DC Fentanyl Citrate (Fentanyl 2ml Vial) 50 mcg 1X ONCE IVP Last administered on 02/14/20at 07:23; Start 02/14/20 at 07:30; Stop 02/14/20 at 07:31; Status DC Fentanyl Citrate 30 ml @ 2.5 mls/hr CONT PRN IV SEE PROTOCOL Last administered on 02/15/20at 09:14; Start 02/14/20 at 07:30 Fentanyl Citrate (Fentanyl 2ml Vial) 25 mcg PRN Q1HR PRN IV SEE COMMENTS; Start 02/14/20 at 07:30; Stop 02/15/20 at 18:51; Status DC Fentanyl Citrate (Fentanyl 2ml Vial) 50 mcg PRN Q1HR PRN IV SEE COMMENTS; Start 02/14/20 at 07:30; Stop 02/15/20 at 18:51; Status DC Famotidine (Pepcid Vial) 20 mg BID IVP ; Start 02/14/20 at 21:00; Stop 02/14/20 at 16:18; Status DC Potassium Chloride/Dextrose/ Sod Cl 1,000 ml @ 50 mls/hr Q20H IV Last administered on 02/15/20at 07:59; Start 02/14/20 at 11:30 Pantoprazole Sodium (PROTONIX VIAL for IV PUSH) 40 mg DAILYAC IVP Last administered on 02/15/20at 07:28; Start 02/15/20 at 07:30 Vancomycin HCl 1 gm/Sodium Chloride 250 ml @ 250 mls/hr Q12H IV Last administered on 02/15/20at 16:29; Start 02/15/20 at 17:00 Vancomycin HCl (Vanco Per Pharmacy) 1 each PRN DAILY PRN MC SEE COMMENTS; Start 02/15/20 at 16:15 Fentanyl Citrate (Fentanyl 2ml Vial) 25 mcg Q1HR ONCE IV Last administered on 02/15/20at 18:54; Start 02/15/20 at 19:00; Stop 02/15/20 at 19:01; Status DC Active Scripts Active Reported Flomax (Tamsulosin Hcl) 0.4 Mg Cap.er.24h 1 Cap PO DAILY Vitals/I & O Vital Sign - Last 24 Hours 02/14/20 02/14/20 02/14/20 02/14/20 20:18 21:00 22:00 23:00 Temp 99.5 99.5 Pulse 71 71 67 Resp 22 22 22 B/P (MAP) 126/56 (79) 123/58 (79) 124/58 (80) Pulse Ox 97 97 98 98 O2 Delivery Ventilator Ventilator Ventilator Ventilator 02/15/20 02/15/20 02/15/20 02/15/20 00:00 00:00 00:52 01:00 Pulse 59 Resp 22 B/P (MAP) 134/61 (85) Pulse Ox 97 98 O2 Delivery Mechanical Ventilator Ventilator Ventilator 02/15/20 02/15/20 02/15/20 02/15/20 02:00 03:00 03:40 04:00 Temp 99.3 99.3 Pulse 58 61 64 Resp 22 22 22 B/P (MAP) 148/64 (92) 143/61 (88) 140/60 (86) Pulse Ox 98 98 98 98 O2 Delivery Ventilator Ventilator Ventilator Ventilator 02/15/20 02/15/20 02/15/20 02/15/20 04:15 04:15 05:00 06:00 Pulse 62 64 Resp 22 22 B/P (MAP) 144/60 (88) 128/64 (85) Pulse Ox 97 97 O2 Delivery Mechanical Ventilator Ventilator Ventilator 02/15/20 02/15/20 02/15/20 02/15/20 07:00 07:36 07:39 07:46 Pulse 61 Resp 22 B/P (MAP) 134/59 (84) Pulse Ox 97 97 O2 Delivery Ventilator Ventilator Mechanical Ventilator 02/15/20 02/15/20 02/15/20 02/15/20 08:00 09:00 10:00 10:52 Temp 99.6 99.6 Pulse 65 67 70 75 Resp 22 22 22 B/P (MAP) 136/60 (85) 148/60 (89) 137/57 (83) 136/58 (84) Pulse Ox 98 98 97 96 O2 Delivery Ventilator Ventilator Ventilator Ventilator 02/15/20 02/15/20 02/15/20 02/15/20 11:00 11:20 11:32 11:38 Pulse 71 Resp 22 B/P (MAP) 138/58 (84) Pulse Ox 97 97 O2 Delivery Ventilator Ventilator Mechanical Ventilator 02/15/20 02/15/20 02/15/20 02/15/20 12:00 13:00 14:00 14:35 Temp 98.8 98.8 Pulse 71 73 72 Resp 22 22 22 B/P (MAP) 135/57 (83) 136/58 (84) 132/62 (85) Pulse Ox 97 96 96 O2 Delivery Ventilator Ventilator Ventilator Ventilator 02/15/20 02/15/20 02/15/20 02/15/20 15:00 15:15 15:37 15:58 Pulse 72 Resp 22 B/P (MAP) 140/62 (88) Pulse Ox 97 O2 Delivery CPAP Trial Nasal Cannula Nasal Cannula O2 Flow Rate 5.0 5.0 02/15/20 02/15/20 02/15/20 02/15/20 16:00 17:00 18:00 18:54 Temp 98.8 98.8 Pulse 78 75 85 Resp 16 22 16 18 B/P (MAP) 135/60 (85) 142/63 (89) 126/61 (82) Pulse Ox 92 94 92 93 O2 Delivery Nasal Cannula CPAP Trial Nasal Cannula Nasal Cannula O2 Flow Rate 5.0 5.0 5.0 5.0 Intake and Output 02/14/20 02/14/20 02/15/20 15:00 23:00 07:00 Intake Total 250 ml 914 ml 1012 ml Output Total 1860 ml 661 ml 859 ml Balance -1610 ml 253 ml 153 ml Justifications for Admission Other Justification KELLI JOY MD Feb 15, 2020 20:10
--- NOTE | 2020-02-15 21:08 | PDOC ---
PROGRESS NOTES Assessment Problems Medical Problems: (1) Intraparenchymal hemorrhage of brain Status: Acute 1. Right thalamic hemorrhage with intraventricular rupture. He developed acute hydrocephalus and required an emergent shunt. 2. Acute respiratory failure due to rapidly evolving hydrocephalus and intracranial pressure. This was effectively treated by the neurosurgeon. He has now been extubated. 3. The hemorrhage has resulted in a dense left hemiparesis. The left arm is flaccid in the left leg is spastic. He is able to speak and he is able to follow commands on the right side. He does not perceive sensation on the left side in the arm he might in the foot. 4. His right arm is restrained because he is trying to pull out the ventricular shunt which is on the right side of his head. Plan 1. He requires continued close observation in the intensive care unit. 2. He has been extubated and is now requiring only nasal cannula oxygen. He is able to awaken and follow commands. Neurologically he has improved greatly. He is no longer requiring sedation. I will leave it to the discretion of the neurosurgeons when they can safely remove the shunt. 3. There has been no reported seizure activity. Subjective He remains lethargic and somewhat confused. He was not oriented. He was able to follow some commands. He kept his eyes closed. Speech was dysarthric but he could tell me his name and it was understandable. He could protrude his tongue to midline. Left arm was flaccid and had no movement. Left leg was spastic. Nailbed pressure caused an upgoing toe. Right side had normal movement and power. He perceive sensation well on the right side. Objective Vital Signs Date Time Temp Pulse Resp B/P (MAP) Pulse Ox O2 Delivery O2 Flow Rate FiO2 02/15/20 18:54 18 93 Nasal Cannula 5.0 02/15/20 18:00 85 126/61 (82) 02/15/20 16:00 98.8 98.8 Intake and Output 02/15/20 07:00 Intake Total 2176 ml Output Total 3380 ml Balance -1204 ml Intake IV Total 2176 ml Output Urine Total 3015 ml Drainage Total 365 ml Review of Relevant I have reviewed the following items faraz (where applicable) has been applied. Labs Laboratory Tests Test 02/14/20 03:21 02/14/20 03:30 02/14/20 09:45 02/14/20 10:00 Glucose (Fingerstick) 119 mg/dL (70-99) White Blood Count 11.3 x10^3/uL (4.0-11.0) Red Blood Count 4.58 x10^6/uL (4.30-5.70) Hemoglobin 13.6 g/dL (13.0-17.5) Hematocrit 40.4 % (39.0-53.0) Mean Corpuscular Volume 88 fL (79-100) Mean Corpuscular Hemoglobin 30 pg (25-35) Mean Corpuscular Hemoglobin Concent 34 g/dL (31-37) Red Cell Distribution Width 13.9 % (11.5-14.5) Platelet Count 226 x10^3/uL (140-400) Neutrophils (%) (Auto) 76 % (31-73) Lymphocytes (%) (Auto) 14 % (24-48) Monocytes (%) (Auto) 9 % (0-9) Eosinophils (%) (Auto) 1 % (0-3) Basophils (%) (Auto) 0 % (0-3) Neutrophils # (Auto) 8.6 x10^3/uL (1.8-7.7) Lymphocytes # (Auto) 1.6 x10^3/uL (1.0-4.8) Monocytes # (Auto) 1.0 x10^3/uL (0.0-1.1) Eosinophils # (Auto) 0.1 x10^3/uL (0.0-0.7) Basophils # (Auto) 0.0 x10^3/uL (0.0-0.2) Prothrombin Time 12.8 SEC (11.7-14.0) Prothromb Time International Ratio 1.0 (0.8-1.1) Sodium Level 140 mmol/L (136-145) Potassium Level 4.0 mmol/L (3.5-5.1) Chloride Level 106 mmol/L (98-107) Carbon Dioxide Level 28 mmol/L (21-32) Anion Gap 6 (6-14) Blood Urea Nitrogen 18 mg/dL (8-26) Creatinine 1.0 mg/dL (0.7-1.3) Estimated GFR (Cockcroft-Gault) 75.2 BUN/Creatinine Ratio 18 (6-20) Glucose Level 119 mg/dL (70-99) Calcium Level 8.9 mg/dL (8.5-10.1) Total Bilirubin 0.4 mg/dL (0.2-1.0) Aspartate Amino Transf (AST/SGOT) 17 U/L (15-37) Alanine Aminotransferase (ALT/SGPT) 18 U/L (16-63) Alkaline Phosphatase 109 U/L (46-116) Troponin I Quantitative < 0.017 ng/mL (0.000-0.055) Total Protein 7.3 g/dL (6.4-8.2) Albumin 3.3 g/dL (3.4-5.0) Albumin/Globulin Ratio 0.8 (1.0-1.7) O2 Saturation 99 % (92-99) Arterial Blood pH 7.38 (7.35-7.45) Arterial Blood pCO2 at Patient Temp 43 mmHg (35-46) Arterial Blood pO2 at Patient Temp 450 mmHg (65-108) Arterial Blood HCO3 25 mmol/L (21-28) Arterial Blood Base Excess -1 mmol/L (-3-3) FiO2 100 Urine Collection Type Unknown Urine Color Yellow Urine Clarity Clear Urine pH 7.0 (<5.0-8.0) Urine Specific [place] 1.010 (1.000-1.030) Urine Protein Negative mg/dL (NEG-TRACE) Urine Glucose (UA) Negative mg/dL (NEG) Urine Ketones (Stick) Negative mg/dL (NEG) Urine Blood Moderate (NEG) Urine Nitrite Negative (NEG) Urine Bilirubin Negative (NEG) Urine Urobilinogen Dipstick 1.0 mg/dL (0.2 mg/dL) Urine Leukocyte Esterase Negative (NEG) Urine RBC 11-20 /HPF (0-2) Urine WBC 0 /HPF (0-4) Urine Bacteria 0 /HPF (0-FEW) Test 02/14/20 14:35 02/15/20 05:00 02/15/20 07:40 02/15/20 15:05 Sodium Level 142 mmol/L (136-145) 139 mmol/L (136-145) Potassium Level 3.5 mmol/L (3.5-5.1) 3.7 mmol/L (3.5-5.1) Chloride Level 107 mmol/L (98-107) 105 mmol/L (98-107) Carbon Dioxide Level 28 mmol/L (21-32) 31 mmol/L (21-32) Anion Gap 7 (6-14) 3 (6-14) Blood Urea Nitrogen 14 mg/dL (8-26) 13 mg/dL (8-26) Creatinine 0.7 mg/dL (0.7-1.3) 0.7 mg/dL (0.7-1.3) Estimated GFR (Cockcroft-Gault) 113.5 113.5 Glucose Level 127 mg/dL (70-99) 145 mg/dL (70-99) Calcium Level 8.2 mg/dL (8.5-10.1) 8.0 mg/dL (8.5-10.1) Magnesium Level 2.2 mg/dL (1.8-2.4) White Blood Count 12.4 x10^3/uL (4.0-11.0) Red Blood Count 4.49 x10^6/uL (4.30-5.70) Hemoglobin 13.5 g/dL (13.0-17.5) Hematocrit 39.8 % (39.0-53.0) Mean Corpuscular Volume 89 fL (79-100) Mean Corpuscular Hemoglobin 30 pg (25-35) Mean Corpuscular Hemoglobin Concent 34 g/dL (31-37) Red Cell Distribution Width 13.8 % (11.5-14.5) Platelet Count 202 x10^3/uL (140-400) Neutrophils (%) (Auto) 79 % (31-73) Lymphocytes (%) (Auto) 10 % (24-48) Monocytes (%) (Auto) 10 % (0-9) Eosinophils (%) (Auto) 0 % (0-3) Basophils (%) (Auto) 0 % (0-3) Neutrophils # (Auto) 9.8 x10^3/uL (1.8-7.7) Lymphocytes # (Auto) 1.3 x10^3/uL (1.0-4.8) Monocytes # (Auto) 1.3 x10^3/uL (0.0-1.1) Eosinophils # (Auto) 0.0 x10^3/uL (0.0-0.7) Basophils # (Auto) 0.0 x10^3/uL (0.0-0.2) O2 Saturation 98 % (92-99) 98 % (92-99) Arterial Blood pH 7.38 (7.35-7.45) 7.38 (7.35-7.45) Arterial Blood pCO2 at Patient Temp 45 mmHg (35-46) 49 mmHg (35-46) Arterial Blood pO2 at Patient Temp 102 mmHg (65-108) 98 mmHg (65-108) Arterial Blood HCO3 26 mmol/L (21-28) 29 mmol/L (21-28) Arterial Blood Base Excess 1 mmol/L (-3-3) 3 mmol/L (-3-3) FiO2 40 40 Laboratory Tests Test 02/15/20 05:00 02/15/20 07:40 02/15/20 15:05 White Blood Count 12.4 x10^3/uL (4.0-11.0) Red Blood Count 4.49 x10^6/uL (4.30-5.70) Hemoglobin 13.5 g/dL (13.0-17.5) Hematocrit 39.8 % (39.0-53.0) Mean Corpuscular Volume 89 fL (79-100) Mean Corpuscular Hemoglobin 30 pg (25-35) Mean Corpuscular Hemoglobin Concent 34 g/dL (31-37) Red Cell Distribution Width 13.8 % (11.5-14.5) Platelet Count 202 x10^3/uL (140-400) Neutrophils (%) (Auto) 79 % (31-73) Lymphocytes (%) (Auto) 10 % (24-48) Monocytes (%) (Auto) 10 % (0-9) Eosinophils (%) (Auto) 0 % (0-3) Basophils (%) (Auto) 0 % (0-3) Neutrophils # (Auto) 9.8 x10^3/uL (1.8-7.7) Lymphocytes # (Auto) 1.3 x10^3/uL (1.0-4.8) Monocytes # (Auto) 1.3 x10^3/uL (0.0-1.1) Eosinophils # (Auto) 0.0 x10^3/uL (0.0-0.7) Basophils # (Auto) 0.0 x10^3/uL (0.0-0.2) Sodium Level 139 mmol/L (136-145) Potassium Level 3.7 mmol/L (3.5-5.1) Chloride Level 105 mmol/L (98-107) Carbon Dioxide Level 31 mmol/L (21-32) Anion Gap 3 (6-14) Blood Urea Nitrogen 13 mg/dL (8-26) Creatinine 0.7 mg/dL (0.7-1.3) Estimated GFR (Cockcroft-Gault) 113.5 Glucose Level 145 mg/dL (70-99) Calcium Level 8.0 mg/dL (8.5-10.1) O2 Saturation 98 % (92-99) 98 % (92-99) Arterial Blood pH 7.38 (7.35-7.45) 7.38 (7.35-7.45) Arterial Blood pCO2 at Patient Temp 45 mmHg (35-46) 49 mmHg (35-46) Arterial Blood pO2 at Patient Temp 102 mmHg (65-108) 98 mmHg (65-108) Arterial Blood HCO3 26 mmol/L (21-28) 29 mmol/L (21-28) Arterial Blood Base Excess 1 mmol/L (-3-3) 3 mmol/L (-3-3) FiO2 40 40 Medications Current Medications Nicardipine HCl 50 mg/Sodium Chloride 250 ml @ 12.5 mls/hr CONT PRN IV SEE I/O RECORD Last administered on 02/15/20at 16:30; Start 02/14/20 at 03:30 Ondansetron HCl (Zofran) 8 mg 1X ONCE IVP Last administered on 02/14/20at 03:48; Start 02/14/20 at 04:00; Stop 02/14/20 at 04:01; Status DC Metoclopramide HCl (Reglan Vial) 10 mg STK-MED ONCE .ROUTE ; Start 02/14/20 at 04:00; Stop 02/14/20 at 04:00; Status DC Diphenhydramine HCl (Benadryl) 50 mg STK-MED ONCE .ROUTE ; Start 02/14/20 at 04:02; Stop 02/14/20 at 04:02; Status DC Hydromorphone HCl (Dilaudid) 2 mg STK-MED ONCE .ROUTE ; Start 02/14/20 at 04:02; Stop 02/14/20 at 04:03; Status DC Lidocaine HCl (Lidocaine 1% 20ml Vial) 20 ml STK-MED ONCE .ROUTE ; Start 02/14/20 at 04:11; Stop 02/14/20 at 04:12; Status DC Ondansetron HCl (Zofran) 4 mg PRN Q8HRS PRN IV NAUSEA/VOMITING 1ST CHOICE; Start 02/14/20 at 04:45; Stop 02/15/20 at 04:44; Status DC Morphine Sulfate (Morphine Sulfate) 4 mg PRN Q2HR PRN IV SEVERE PAIN 7-10; Start 02/14/20 at 04:45; Stop 02/15/20 at 04:44; Status DC Rocuronium [place] (Zemuron) 100 mg 1X ONCE IV Last administered on 02/14/20at 04:56; Start 02/14/20 at 05:00; Stop 02/14/20 at 05:01; Status DC Etomidate (Amidate) 20 mg 1X ONCE IV Last administered on 02/14/20at 04:56; Start 02/14/20 at 05:00; Stop 02/14/20 at 05:01; Status DC Fentanyl Citrate (Fentanyl 2ml Vial) 100 mcg 1X ONCE IVP Last administered on 02/14/20at 04:55; Start 02/14/20 at 05:00; Stop 02/14/20 at 05:01; Status DC Propofol (Diprivan) 200 mg STK-MED ONCE IV ; Start 02/14/20 at 05:02; Stop 02/14/20 at 05:03; Status DC Propofol 50 ml @ As Directed STK-MED ONCE IV ; Start 02/14/20 at 05:03; Stop 02/14/20 at 05:03; Status DC Propofol (Diprivan) 200 mg 1X ONCE IV ; Start 02/14/20 at 05:30; Stop 02/14/20 at 05:31; Status DC Vancomycin HCl 250 ml @ 250 mls/hr PREOP PRN PRN IV PREOP Last administered on 02/14/20at 06:48; Start 02/14/20 at 06:00; Stop 02/15/20 at 05:59; Status DC Propofol 100 ml @ 0 mls/hr CONT PRN IV SEE I/O RECORD Last administered on 02/14/20at 11:30; Start 02/14/20 at 06:30 Fentanyl Citrate (Fentanyl 2ml Vial) 50 mcg 1X ONCE IVP Last administered on 02/14/20at 06:48; Start 02/14/20 at 07:00; Stop 02/14/20 at 07:01; Status DC Lidocaine HCl (Xylocaine-Mpf 1% 2ml Vial) 2 ml STK-MED ONCE .ROUTE ; Start 02/14/20 at 06:43; Stop 02/14/20 at 06:43; Status DC Fentanyl Citrate (Fentanyl 2ml Vial) 50 mcg 1X ONCE IVP Last administered on 02/14/20at 07:23; Start 02/14/20 at 07:30; Stop 02/14/20 at 07:31; Status DC Fentanyl Citrate 30 ml @ 2.5 mls/hr CONT PRN IV SEE PROTOCOL Last administered on 02/15/20at 09:14; Start 02/14/20 at 07:30 Fentanyl Citrate (Fentanyl 2ml Vial) 25 mcg PRN Q1HR PRN IV SEE COMMENTS; Start 02/14/20 at 07:30; Stop 02/15/20 at 18:51; Status DC Fentanyl Citrate (Fentanyl 2ml Vial) 50 mcg PRN Q1HR PRN IV SEE COMMENTS; Start 02/14/20 at 07:30; Stop 02/15/20 at 18:51; Status DC Famotidine (Pepcid Vial) 20 mg BID IVP ; Start 02/14/20 at 21:00; Stop 02/14/20 at 16:18; Status DC Potassium Chloride/Dextrose/ Sod Cl 1,000 ml @ 50 mls/hr Q20H IV Last administered on 02/15/20at 07:59; Start 02/14/20 at 11:30 Pantoprazole Sodium (PROTONIX VIAL for IV PUSH) 40 mg DAILYAC IVP Last administered on 02/15/20at 07:28; Start 02/15/20 at 07:30 Vancomycin HCl 1 gm/Sodium Chloride 250 ml @ 250 mls/hr Q12H IV Last administered on 02/15/20at 16:29; Start 02/15/20 at 17:00 Vancomycin HCl (Vanco Per Pharmacy) 1 each PRN DAILY PRN MC SEE COMMENTS; Start 02/15/20 at 16:15 Fentanyl Citrate (Fentanyl 2ml Vial) 25 mcg Q1HR ONCE IV Last administered on 02/15/20at 18:54; Start 02/15/20 at 19:00; Stop 02/15/20 at 19:01; Status DC Active Scripts Active Reported Flomax (Tamsulosin Hcl) 0.4 Mg Cap.er.24h 1 Cap PO DAILY Vitals/I & O Vital Sign - Last 24 Hours 02/14/20 02/14/20 02/15/20 02/15/20 22:00 23:00 00:00 00:00 Temp 99.5 99.5 Pulse 71 67 Resp 22 22 B/P (MAP) 123/58 (79) 124/58 (80) Pulse Ox 98 98 O2 Delivery Ventilator Ventilator Mechanical Ventilator 02/15/20 02/15/20 02/15/20 02/15/20 00:52 01:00 02:00 03:00 Pulse 59 58 61 Resp 22 22 22 B/P (MAP) 134/61 (85) 148/64 (92) 143/61 (88) Pulse Ox 97 98 98 98 O2 Delivery Ventilator Ventilator Ventilator Ventilator 02/15/20 02/15/20 02/15/20 02/15/20 03:40 04:00 04:15 04:15 Temp 99.3 99.3 Pulse 64 Resp 22 B/P (MAP) 140/60 (86) Pulse Ox 98 98 O2 Delivery Ventilator Ventilator Mechanical Ventilator 02/15/20 02/15/20 02/15/20 02/15/20 05:00 06:00 07:00 07:36 Pulse 62 64 61 Resp 22 22 22 B/P (MAP) 144/60 (88) 128/64 (85) 134/59 (84) Pulse Ox 97 97 97 97 O2 Delivery Ventilator Ventilator Ventilator Ventilator 02/15/20 02/15/20 02/15/20 02/15/20 07:39 07:46 08:00 09:00 Temp 99.6 99.6 Pulse 65 67 Resp 22 22 B/P (MAP) 136/60 (85) 148/60 (89) Pulse Ox 98 98 O2 Delivery Mechanical Ventilator Ventilator Ventilator 02/15/20 02/15/20 02/15/20 02/15/20 10:00 10:52 11:00 11:20 Pulse 70 75 71 Resp 22 22 22 B/P (MAP) 137/57 (83) 136/58 (84) 138/58 (84) Pulse Ox 97 96 97 97 O2 Delivery Ventilator Ventilator Ventilator Ventilator 02/15/20 02/15/20 02/15/20 02/15/20 11:32 11:38 12:00 13:00 Temp 98.8 98.8 Pulse 71 73 Resp 22 22 B/P (MAP) 135/57 (83) 136/58 (84) Pulse Ox 97 96 O2 Delivery Mechanical Ventilator Ventilator Ventilator 02/15/20 02/15/20 02/15/20 02/15/20 14:00 14:35 15:00 15:15 Pulse 72 72 Resp 22 22 B/P (MAP) 132/62 (85) 140/62 (88) Pulse Ox 96 97 O2 Delivery Ventilator Ventilator CPAP Trial Nasal Cannula O2 Flow Rate 5.0 02/15/20 02/15/20 02/15/20 02/15/20 15:37 15:58 16:00 17:00 Temp 98.8 98.8 Pulse 78 75 Resp 16 22 B/P (MAP) 135/60 (85) 142/63 (89) Pulse Ox 92 94 O2 Delivery Nasal Cannula Nasal Cannula CPAP Trial O2 Flow Rate 5.0 5.0 5.0 02/15/20 02/15/20 18:00 18:54 Pulse 85 Resp 16 18 B/P (MAP) 126/61 (82) Pulse Ox 92 93 O2 Delivery Nasal Cannula Nasal Cannula O2 Flow Rate 5.0 5.0 Intake and Output 02/14/20 02/14/20 02/15/20 15:00 23:00 07:00 Intake Total 250 ml 914 ml 1012 ml Output Total 1860 ml 661 ml 859 ml Balance -1610 ml 253 ml 153 ml Justicifation of Admission Dx: Justifications for Admission: Justification of Admission Dx: Yes Acute Hemorrhagic Stroke: Acute Hemorrhagic Stroke SANDRA ELLIOTT MD Feb 15, 2020 21:08
[2020-02-16] VITALS (28 sets, daily range): BP systolic 94–157; BP diastolic 56–78
[2020-02-16] MEDS: fentaNYL PF VIAL 100 MCG/2 ML VIAL IVP PRN ×9 (00:26→23:26)
[2020-02-16] MEDS: VANCOMYCIN 1 GM in IV NORMAL SALINE 250ML 250 ML IV SCH ×2 (05:10→16:27)
[2020-02-16] MEDS: POTASSIUM CL 20MEQ D5-0.45NACL 1,000 ML IV SCH (05:10)
[2020-02-16 06:55] LABS: BASE EXCESS ABG -1 mmol/L (-3-3); HCO3 ABG 22 mmol/L (21-28); PCO2 ABG 32 mmHg (35-46); PO2 ABG 54 mmHg (65-108); SAT O2 ABG 90 % (92-99)
[2020-02-16 07:01] LABS: FIO2 ABG 100
[2020-02-16 07:04] LABS: HEMATOCRIT 37.3 % (39.0-53.0); HEMOGLOBIN 12.7 g/dL (13.0-17.5); RED BLOOD COUNT 4.19 x10^6/uL (4.30-5.70); RED CELL DISTRIBUTION WIDTH 13.7 % (11.5-14.5); WHITE BLOOD COUNT 13.8 x10^3/uL (4.0-11.0)
--- NOTE | 2020-02-16 07:20 | NUR ---
At 0610 patient oxygen saturation dropped from 90% to low 80's requiring increase of oxygen initially to Simple Mask then to 100% Non-rebreather to keep saturation mid 80's. ABGs drawn stat and resulted pH 7.45, pCO2 32.0, pO2 54.1. HCO3 21.6, BE -1.4, stat CBC and BMP also drawn with results pending, patient's SBP also dropped to 90's and Cardene placed on hold. Patient continues to be arousable, following commands, moving right extremities purposefully, and answering simple questions "yes and no" with ICP 8. Dr Billings paged regarding change in respiratory status, returned page, notified of above. Orders received to start BiPap 16/4, rate 16, FiO2 50%, start Dexamethasone 4MB IVP Q6HRS, discuss with Dr Jones regarding Dexamethasone and possible repeat CT Head today.
[2020-02-16 07:23] LABS: CALCIUM 8.3 mg/dL (8.5-10.1); CREATININE 0.8 mg/dL (0.7-1.3); GFR 97.3; POTASSIUM 3.7 mmol/L (3.5-5.1)
[2020-02-16] MEDS: PANTOPRAZOLE IV PUSH 40 MG VIAL. IVP SCH (07:57)
[2020-02-16] MEDS ORDERED: DEXAMETHASONE SOD PHOS 4 MG/ML VIAL IVP ONE (08:00)
--- NOTE | 2020-02-16 08:18 | NUR ---
Spoke with Rosa [employer] RN regarding patient's hypoxia and Dr. Billings's orders, said it was ok to start decadron and initiate BiPAP. Rosa also said it was ok from a neurosurgery standpoint to start precedex if ok with Dr. Billings to minimally sedate patient if he doesn't tolerate the BiPAP. Also notified Dr. Cage at bedside of changes and potentially sedating, ok with him.
[2020-02-16] MEDS ORDERED: IV NORMAL SALINE 500ML BAG 500 ML IV PRN (08:30)
[2020-02-16] MEDS ORDERED: ATROPINE 0.5 MG/5 ML DISP.SYRINGE. IV PRN (08:30)
[2020-02-16] MEDS: DEXMEDETOMIDINE 400 MCG in IV NORMAL SALINE 100ML 96 ML IV PRN ×2 (08:49→21:04)
--- NOTE | 2020-02-16 08:51 | PDOC ---
PULMONARY PROGRESS NOTES DATE: 02/16/20 TIME: 08:51 Subjective Patient did well yesterday extubated, this morning he drops his O2 sats Placed on BiPAP O2 sats better Chest x-ray reviewed increased right lower lobe consolidation S/P ventricular system 02/15/20 Vitals Vital Signs Date Time Temp Pulse Resp B/P (MAP) Pulse Ox O2 Delivery O2 Flow Rate FiO2 02/16/20 08:28 16 90 BiPAP/CPAP 02/16/20 08:00 02/16/20 08:00 99.2 103 15.0 99.2 Lungs: Crackles Cardiovascular: S1 Abdomen: Soft Neuro Exam: Alert Skin: Warm Labs Laboratory Tests Test 02/14/20 09:45 02/14/20 10:00 02/14/20 14:35 02/15/20 05:00 O2 Saturation 99 % (92-99) Arterial Blood pH 7.38 (7.35-7.45) Arterial Blood pCO2 at Patient Temp 43 mmHg (35-46) Arterial Blood pO2 at Patient Temp 450 mmHg (65-108) Arterial Blood HCO3 25 mmol/L (21-28) Arterial Blood Base Excess -1 mmol/L (-3-3) FiO2 100 Urine Collection Type Unknown Urine Color Yellow Urine Clarity Clear Urine pH 7.0 (<5.0-8.0) Urine Specific [place] 1.010 (1.000-1.030) Urine Protein Negative mg/dL (NEG-TRACE) Urine Glucose (UA) Negative mg/dL (NEG) Urine Ketones (Stick) Negative mg/dL (NEG) Urine Blood Moderate (NEG) Urine Nitrite Negative (NEG) Urine Bilirubin Negative (NEG) Urine Urobilinogen Dipstick 1.0 mg/dL (0.2 mg/dL) Urine Leukocyte Esterase Negative (NEG) Urine RBC 11-20 /HPF (0-2) Urine WBC 0 /HPF (0-4) Urine Bacteria 0 /HPF (0-FEW) Sodium Level 142 mmol/L (136-145) 139 mmol/L (136-145) Potassium Level 3.5 mmol/L (3.5-5.1) 3.7 mmol/L (3.5-5.1) Chloride Level 107 mmol/L (98-107) 105 mmol/L (98-107) Carbon Dioxide Level 28 mmol/L (21-32) 31 mmol/L (21-32) Anion Gap 7 (6-14) 3 (6-14) Blood Urea Nitrogen 14 mg/dL (8-26) 13 mg/dL (8-26) Creatinine 0.7 mg/dL (0.7-1.3) 0.7 mg/dL (0.7-1.3) Estimated GFR (Cockcroft-Gault) 113.5 113.5 Glucose Level 127 mg/dL (70-99) 145 mg/dL (70-99) Calcium Level 8.2 mg/dL (8.5-10.1) 8.0 mg/dL (8.5-10.1) Magnesium Level 2.2 mg/dL (1.8-2.4) White Blood Count 12.4 x10^3/uL (4.0-11.0) Red Blood Count 4.49 x10^6/uL (4.30-5.70) Hemoglobin 13.5 g/dL (13.0-17.5) Hematocrit 39.8 % (39.0-53.0) Mean Corpuscular Volume 89 fL (79-100) Mean Corpuscular Hemoglobin 30 pg (25-35) Mean Corpuscular Hemoglobin Concent 34 g/dL (31-37) Red Cell Distribution Width 13.8 % (11.5-14.5) Platelet Count 202 x10^3/uL (140-400) Neutrophils (%) (Auto) 79 % (31-73) Lymphocytes (%) (Auto) 10 % (24-48) Monocytes (%) (Auto) 10 % (0-9) Eosinophils (%) (Auto) 0 % (0-3) Basophils (%) (Auto) 0 % (0-3) Neutrophils # (Auto) 9.8 x10^3/uL (1.8-7.7) Lymphocytes # (Auto) 1.3 x10^3/uL (1.0-4.8) Monocytes # (Auto) 1.3 x10^3/uL (0.0-1.1) Eosinophils # (Auto) 0.0 x10^3/uL (0.0-0.7) Basophils # (Auto) 0.0 x10^3/uL (0.0-0.2) Test 02/15/20 07:40 02/15/20 15:05 02/16/20 06:39 02/16/20 06:49 O2 Saturation 98 % (92-99) 98 % (92-99) 90 % (92-99) Arterial Blood pH 7.38 (7.35-7.45) 7.38 (7.35-7.45) 7.45 (7.35-7.45) Arterial Blood pCO2 at Patient Temp 45 mmHg (35-46) 49 mmHg (35-46) 32 mmHg (35-46) Arterial Blood pO2 at Patient Temp 102 mmHg (65-108) 98 mmHg (65-108) 54 mmHg (65-108) Arterial Blood HCO3 26 mmol/L (21-28) 29 mmol/L (21-28) 22 mmol/L (21-28) Arterial Blood Base Excess 1 mmol/L (-3-3) 3 mmol/L (-3-3) -1 mmol/L (-3-3) FiO2 40 40 100 Glucose (Fingerstick) 152 mg/dL (70-99) Test 02/16/20 06:50 White Blood Count 13.8 x10^3/uL (4.0-11.0) Red Blood Count 4.19 x10^6/uL (4.30-5.70) Hemoglobin 12.7 g/dL (13.0-17.5) Hematocrit 37.3 % (39.0-53.0) Mean Corpuscular Volume 89 fL (79-100) Mean Corpuscular Hemoglobin 30 pg (25-35) Mean Corpuscular Hemoglobin Concent 34 g/dL (31-37) Red Cell Distribution Width 13.7 % (11.5-14.5) Platelet Count 182 x10^3/uL (140-400) Sodium Level 140 mmol/L (136-145) Potassium Level 3.7 mmol/L (3.5-5.1) Chloride Level 107 mmol/L (98-107) Carbon Dioxide Level 24 mmol/L (21-32) Anion Gap 9 (6-14) Blood Urea Nitrogen 18 mg/dL (8-26) Creatinine 0.8 mg/dL (0.7-1.3) Estimated GFR (Cockcroft-Gault) 97.3 Glucose Level 152 mg/dL (70-99) Calcium Level 8.3 mg/dL (8.5-10.1) Laboratory Tests Test 02/15/20 15:05 02/16/20 06:39 02/16/20 06:49 02/16/20 06:50 O2 Saturation 98 % (92-99) 90 % (92-99) Arterial Blood pH 7.38 (7.35-7.45) 7.45 (7.35-7.45) Arterial Blood pCO2 at Patient Temp 49 mmHg (35-46) 32 mmHg (35-46) Arterial Blood pO2 at Patient Temp 98 mmHg (65-108) 54 mmHg (65-108) Arterial Blood HCO3 29 mmol/L (21-28) 22 mmol/L (21-28) Arterial Blood Base Excess 3 mmol/L (-3-3) -1 mmol/L (-3-3) FiO2 40 100 Glucose (Fingerstick) 152 mg/dL (70-99) White Blood Count 13.8 x10^3/uL (4.0-11.0) Red Blood Count 4.19 x10^6/uL (4.30-5.70) Hemoglobin 12.7 g/dL (13.0-17.5) Hematocrit 37.3 % (39.0-53.0) Mean Corpuscular Volume 89 fL (79-100) Mean Corpuscular Hemoglobin 30 pg (25-35) Mean Corpuscular Hemoglobin Concent 34 g/dL (31-37) Red Cell Distribution Width 13.7 % (11.5-14.5) Platelet Count 182 x10^3/uL (140-400) Sodium Level 140 mmol/L (136-145) Potassium Level 3.7 mmol/L (3.5-5.1) Chloride Level 107 mmol/L (98-107) Carbon Dioxide Level 24 mmol/L (21-32) Anion Gap 9 (6-14) Blood Urea Nitrogen 18 mg/dL (8-26) Creatinine 0.8 mg/dL (0.7-1.3) Estimated GFR (Cockcroft-Gault) 97.3 Glucose Level 152 mg/dL (70-99) Calcium Level 8.3 mg/dL (8.5-10.1) Medications Active Scripts Medications Dose Route/Sig Max Daily Dose Days Date Category Flomax (Tamsulosin Hcl) 0.4 Mg Cap.er.24h 1 Cap PO DAILY 02/14/20 Reported Comments CXR IMPRESSION: 1. Life-support devices as above. 2. Bibasilar heterogeneous opacities, which could represent subsegmental atelectasis, infection, or aspiration. Impression . IMPRESSION: 1. Acute respiratory failure secondary to cerebrovascular accident., Right lower lobe atelectasis, possible aspiration pneumonia 2. Hypertensive crisis. 3. 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 4. Status post ventriculostomy. 5. Intracerebral bleeding. 6. Encephalopathy secondary to above. 7. History of hypertension. 8. History of previous cerebrovascular accident. 9. Tobacco dependent. 10. Abnormal chest x-ray Plan . BiPAP as needed Empiric antibiotic Started on dexamethasone CT chest when stable Follow neurosurgery and neurology recs Cont. aggressive treatment of HTN, off of nicardipine DVT/GI PPX Total cumulative critical care time of 30 minutes Spoke with son at the bedside MOOSE PASCAL MD Feb 16, 2020 08:51
--- NOTE | 2020-02-16 09:00 | NUR ---
Patient's son, Jose J, at bedside, educated on need for very minimal stimulation. Will pass along to other family members.
--- NOTE | 2020-02-16 10:19 | PDOC ---
PROGRESS NOTES Date of Service: DATE: 02/16/20 TIME: 10:19 Chief Complaint Chief Complaint VTE Prophylaxis Ordered VTE Prophylaxis Devices: Yes VTE Pharmacological Prophylaxi: Contraindicated Assessment/Plan Assessment/Plan IMPRESSION: Intraparenchymal hemorrhage of brain Acute intraparenchymal hematoma centered within the right thalamus with a volume of approximately 14 cc. Intraventricular extension of hemorrhage filling much of the right lateral ventricle and extending downwards through the fourth ventricle.hematoma and associated edema exert mass effect on the foramen of Prieto and a portion of the third ventricle. dilatation of the right lateral ventricle temporal horn developing hydrocephalus. 02/13 ctRight frontal approach ventriculostomy . Stable ventricular configuration. Stable right basal ganglia acute intraparenchymal hemorrhage with intraventricular extension. Mass effect with sulcal effacement and increased suprasellar cistern effacement. acute hypoxic resp failure PLAN ADMIT ICU Consult neurosurgery vent support consult pulmonary consult neurology 36 min cc time History of Present Illness History of Present Illness Identification/Chief Complaint Chief Complaint ADMITTED TO ICU 64-year-old male with PMH ischemic stroke who presents with a chief complaint of headache and weakness. ACCORDING TO EMS the patient was last known well was 12:00 AM. Approximately 3 hours prior to arrival. patient went to bed around midnight. //woke up at 1230 with a severe headache. He went back to sleep and woke up again approximately half hour prior to arrival. continued have a severe headache. They state the patient was noted to have left upper extremity left lower extremity weakness.//noted some facial asymmetry Past Medical History Past Medical History Past Medical History Past Medical History: CVA, High Cholesterol Past Surgical History: Other Additional Past Surgical Histo: HERNIA REPAIR Smoking Status: Current Every Day Smoker Alcohol Use: None fhx copd Family History Family History: High Cholestrol, Hypertension Social History Smoke: No ALCOHOL: none Drugs: None Current Problem List Problem List Problems Medical Problems: (1) Intraparenchymal hemorrhage of brain Status: Acute Vitals Vitals Vital Signs Date Time Temp Pulse Resp B/P (MAP) Pulse Ox O2 Delivery O2 Flow Rate FiO2 02/16/20 09:00 102 18 125/64 (84) 90 BiPAP/CPAP 02/16/20 08:00 99.2 15.0 99.2 Physical Exam Physical Exam Eyes: PERRLA, EOMI, conjunctiva normal, no discharge. [] Neck: Normal range of motion, no tenderness, supple, no stridor. [] Cardiovascular:Heart rate regular rhythm, no murmur [] Lungs & Thorax: Bilateral breath sounds clear to auscultation [] Abdomen: Bowel sounds normal, soft, no tenderness, no masses, no pulsatile masses. [] Skin: Warm, dry, no erythema, no rash. [] Back: No tenderness, no CVA tenderness. [] Extremities: No tenderness, no cyanosis, no clubbing, ROM intact, no edema. [] General: Alert, Cooperative, Other (Intubated) Heart: Regular rate Abdomen: Normal bowel sounds, No tenderness Extremities: No cyanosis Labs LABS PORTABLE CHEST 1V INDICATION: Reason: Vent ICU#108 / Spl. Instructions: / History: . COMPARISON STUDY: 02/14/2020. FINDINGS: Life Support Devices: Endotracheal and enteric tubes are no longer visualized. Lungs: Normal lung volume. Stable patchy bibasilar opacities. Pleura: Small right pleural effusion. Heart and Mediastinum: Stable cardiomediastinal silhouette and great vessels. IMPRESSION: 1. Stable patchy bibasilar opacities. 2. Small right pleural effusion. 3. Endotracheal and enteric tubes no longer visualized. Electronically signed by: Siomara Lunsford MD (02/16/2020 11:14 AM) [id number] DICTATED and SIGNED BY: SIOMARA LUNSFORD MD DATE: 02/16/20 1114 Laboratory Tests Test 02/15/20 15:05 02/16/20 06:39 02/16/20 06:49 02/16/20 06:50 O2 Saturation 98 % (92-99) 90 % (92-99) Arterial Blood pH 7.38 (7.35-7.45) 7.45 (7.35-7.45) Arterial Blood pCO2 at Patient Temp 49 mmHg (35-46) 32 mmHg (35-46) Arterial Blood pO2 at Patient Temp 98 mmHg (65-108) 54 mmHg (65-108) Arterial Blood HCO3 29 mmol/L (21-28) 22 mmol/L (21-28) Arterial Blood Base Excess 3 mmol/L (-3-3) -1 mmol/L (-3-3) FiO2 40 100 Glucose (Fingerstick) 152 mg/dL (70-99) White Blood Count 13.8 x10^3/uL (4.0-11.0) Red Blood Count 4.19 x10^6/uL (4.30-5.70) Hemoglobin 12.7 g/dL (13.0-17.5) Hematocrit 37.3 % (39.0-53.0) Mean Corpuscular Volume 89 fL (79-100) Mean Corpuscular Hemoglobin 30 pg (25-35) Mean Corpuscular Hemoglobin Concent 34 g/dL (31-37) Red Cell Distribution Width 13.7 % (11.5-14.5) Platelet Count 182 x10^3/uL (140-400) Sodium Level 140 mmol/L (136-145) Potassium Level 3.7 mmol/L (3.5-5.1) Chloride Level 107 mmol/L (98-107) Carbon Dioxide Level 24 mmol/L (21-32) Anion Gap 9 (6-14) Blood Urea Nitrogen 18 mg/dL (8-26) Creatinine 0.8 mg/dL (0.7-1.3) Estimated GFR (Cockcroft-Gault) 97.3 Glucose Level 152 mg/dL (70-99) Calcium Level 8.3 mg/dL (8.5-10.1) Assessment and Plan Assessmemt and Plan Problems Medical Problems: (1) Intraparenchymal hemorrhage of brain Status: Acute Comment Review of Relevant I have reviewed the following items faraz (where applicable) has been applied. Labs Laboratory Tests Test 02/14/20 14:35 02/15/20 05:00 02/15/20 07:40 02/15/20 15:05 Sodium Level 142 mmol/L (136-145) 139 mmol/L (136-145) Potassium Level 3.5 mmol/L (3.5-5.1) 3.7 mmol/L (3.5-5.1) Chloride Level 107 mmol/L (98-107) 105 mmol/L (98-107) Carbon Dioxide Level 28 mmol/L (21-32) 31 mmol/L (21-32) Anion Gap 7 (6-14) 3 (6-14) Blood Urea Nitrogen 14 mg/dL (8-26) 13 mg/dL (8-26) Creatinine 0.7 mg/dL (0.7-1.3) 0.7 mg/dL (0.7-1.3) Estimated GFR (Cockcroft-Gault) 113.5 113.5 Glucose Level 127 mg/dL (70-99) 145 mg/dL (70-99) Calcium Level 8.2 mg/dL (8.5-10.1) 8.0 mg/dL (8.5-10.1) Magnesium Level 2.2 mg/dL (1.8-2.4) White Blood Count 12.4 x10^3/uL (4.0-11.0) Red Blood Count 4.49 x10^6/uL (4.30-5.70) Hemoglobin 13.5 g/dL (13.0-17.5) Hematocrit 39.8 % (39.0-53.0) Mean Corpuscular Volume 89 fL (79-100) Mean Corpuscular Hemoglobin 30 pg (25-35) Mean Corpuscular Hemoglobin Concent 34 g/dL (31-37) Red Cell Distribution Width 13.8 % (11.5-14.5) Platelet Count 202 x10^3/uL (140-400) Neutrophils (%) (Auto) 79 % (31-73) Lymphocytes (%) (Auto) 10 % (24-48) Monocytes (%) (Auto) 10 % (0-9) Eosinophils (%) (Auto) 0 % (0-3) Basophils (%) (Auto) 0 % (0-3) Neutrophils # (Auto) 9.8 x10^3/uL (1.8-7.7) Lymphocytes # (Auto) 1.3 x10^3/uL (1.0-4.8) Monocytes # (Auto) 1.3 x10^3/uL (0.0-1.1) Eosinophils # (Auto) 0.0 x10^3/uL (0.0-0.7) Basophils # (Auto) 0.0 x10^3/uL (0.0-0.2) O2 Saturation 98 % (92-99) 98 % (92-99) Arterial Blood pH 7.38 (7.35-7.45) 7.38 (7.35-7.45) Arterial Blood pCO2 at Patient Temp 45 mmHg (35-46) 49 mmHg (35-46) Arterial Blood pO2 at Patient Temp 102 mmHg (65-108) 98 mmHg (65-108) Arterial Blood HCO3 26 mmol/L (21-28) 29 mmol/L (21-28) Arterial Blood Base Excess 1 mmol/L (-3-3) 3 mmol/L (-3-3) FiO2 40 40 Test 02/16/20 06:39 02/16/20 06:49 02/16/20 06:50 O2 Saturation 90 % (92-99) Arterial Blood pH 7.45 (7.35-7.45) Arterial Blood pCO2 at Patient Temp 32 mmHg (35-46) Arterial Blood pO2 at Patient Temp 54 mmHg (65-108) Arterial Blood HCO3 22 mmol/L (21-28) Arterial Blood Base Excess -1 mmol/L (-3-3) FiO2 100 Glucose (Fingerstick) 152 mg/dL (70-99) White Blood Count 13.8 x10^3/uL (4.0-11.0) Red Blood Count 4.19 x10^6/uL (4.30-5.70) Hemoglobin 12.7 g/dL (13.0-17.5) Hematocrit 37.3 % (39.0-53.0) Mean Corpuscular Volume 89 fL (79-100) Mean Corpuscular Hemoglobin 30 pg (25-35) Mean Corpuscular Hemoglobin Concent 34 g/dL (31-37) Red Cell Distribution Width 13.7 % (11.5-14.5) Platelet Count 182 x10^3/uL (140-400) Sodium Level 140 mmol/L (136-145) Potassium Level 3.7 mmol/L (3.5-5.1) Chloride Level 107 mmol/L (98-107) Carbon Dioxide Level 24 mmol/L (21-32) Anion Gap 9 (6-14) Blood Urea Nitrogen 18 mg/dL (8-26) Creatinine 0.8 mg/dL (0.7-1.3) Estimated GFR (Cockcroft-Gault) 97.3 Glucose Level 152 mg/dL (70-99) Calcium Level 8.3 mg/dL (8.5-10.1) Laboratory Tests Test 02/15/20 15:05 02/16/20 06:39 02/16/20 06:49 02/16/20 06:50 O2 Saturation 98 % (92-99) 90 % (92-99) Arterial Blood pH 7.38 (7.35-7.45) 7.45 (7.35-7.45) Arterial Blood pCO2 at Patient Temp 49 mmHg (35-46) 32 mmHg (35-46) Arterial Blood pO2 at Patient Temp 98 mmHg (65-108) 54 mmHg (65-108) Arterial Blood HCO3 29 mmol/L (21-28) 22 mmol/L (21-28) Arterial Blood Base Excess 3 mmol/L (-3-3) -1 mmol/L (-3-3) FiO2 40 100 Glucose (Fingerstick) 152 mg/dL (70-99) White Blood Count 13.8 x10^3/uL (4.0-11.0) Red Blood Count 4.19 x10^6/uL (4.30-5.70) Hemoglobin 12.7 g/dL (13.0-17.5) Hematocrit 37.3 % (39.0-53.0) Mean Corpuscular Volume 89 fL (79-100) Mean Corpuscular Hemoglobin 30 pg (25-35) Mean Corpuscular Hemoglobin Concent 34 g/dL (31-37) Red Cell Distribution Width 13.7 % (11.5-14.5) Platelet Count 182 x10^3/uL (140-400) Sodium Level 140 mmol/L (136-145) Potassium Level 3.7 mmol/L (3.5-5.1) Chloride Level 107 mmol/L (98-107) Carbon Dioxide Level 24 mmol/L (21-32) Anion Gap 9 (6-14) Blood Urea Nitrogen 18 mg/dL (8-26) Creatinine 0.8 mg/dL (0.7-1.3) Estimated GFR (Cockcroft-Gault) 97.3 Glucose Level 152 mg/dL (70-99) Calcium Level 8.3 mg/dL (8.5-10.1) Medications Current Medications Nicardipine HCl 50 mg/Sodium Chloride 250 ml @ 12.5 mls/hr CONT PRN IV SEE I/O RECORD Last administered on 02/16/20at 05:11; Start 02/14/20 at 03:30 Ondansetron HCl (Zofran) 8 mg 1X ONCE IVP Last administered on 02/14/20at 03:48; Start 02/14/20 at 04:00; Stop 02/14/20 at 04:01; Status DC Metoclopramide HCl (Reglan Vial) 10 mg STK-MED ONCE .ROUTE ; Start 02/14/20 at 04:00; Stop 02/14/20 at 04:00; Status DC Diphenhydramine HCl (Benadryl) 50 mg STK-MED ONCE .ROUTE ; Start 02/14/20 at 04:02; Stop 02/14/20 at 04:02; Status DC Hydromorphone HCl (Dilaudid) 2 mg STK-MED ONCE .ROUTE ; Start 02/14/20 at 04:02; Stop 02/14/20 at 04:03; Status DC Lidocaine HCl (Lidocaine 1% 20ml Vial) 20 ml STK-MED ONCE .ROUTE ; Start 02/14/20 at 04:11; Stop 02/14/20 at 04:12; Status DC Ondansetron HCl (Zofran) 4 mg PRN Q8HRS PRN IV NAUSEA/VOMITING 1ST CHOICE; Start 02/14/20 at 04:45; Stop 02/15/20 at 04:44; Status DC Morphine Sulfate (Morphine Sulfate) 4 mg PRN Q2HR PRN IV SEVERE PAIN 7-10; Start 02/14/20 at 04:45; Stop 02/15/20 at 04:44; Status DC Rocuronium [place] (Zemuron) 100 mg 1X ONCE IV Last administered on 02/14/20at 04:56; Start 02/14/20 at 05:00; Stop 02/14/20 at 05:01; Status DC Etomidate (Amidate) 20 mg 1X ONCE IV Last administered on 02/14/20at 04:56; Start 02/14/20 at 05:00; Stop 02/14/20 at 05:01; Status DC Fentanyl Citrate (Fentanyl 2ml Vial) 100 mcg 1X ONCE IVP Last administered on 02/14/20at 04:55; Start 02/14/20 at 05:00; Stop 02/14/20 at 05:01; Status DC Propofol (Diprivan) 200 mg STK-MED ONCE IV ; Start 02/14/20 at 05:02; Stop 02/14/20 at 05:03; Status DC Propofol 50 ml @ As Directed STK-MED ONCE IV ; Start 02/14/20 at 05:03; Stop 02/14/20 at 05:03; Status DC Propofol (Diprivan) 200 mg 1X ONCE IV ; Start 02/14/20 at 05:30; Stop 02/14/20 at 05:31; Status DC Vancomycin HCl 250 ml @ 250 mls/hr PREOP PRN PRN IV PREOP Last administered on 02/14/20at 06:48; Start 02/14/20 at 06:00; Stop 02/15/20 at 05:59; Status DC Propofol 100 ml @ 0 mls/hr CONT PRN IV SEE I/O RECORD Last administered on 02/14/20at 11:30; Start 02/14/20 at 06:30 Fentanyl Citrate (Fentanyl 2ml Vial) 50 mcg 1X ONCE IVP Last administered on 02/14/20at 06:48; Start 02/14/20 at 07:00; Stop 02/14/20 at 07:01; Status DC Lidocaine HCl (Xylocaine-Mpf 1% 2ml Vial) 2 ml STK-MED ONCE .ROUTE ; Start 02/14/20 at 06:43; Stop 02/14/20 at 06:43; Status DC Fentanyl Citrate (Fentanyl 2ml Vial) 50 mcg 1X ONCE IVP Last administered on 02/14/20at 07:23; Start 02/14/20 at 07:30; Stop 02/14/20 at 07:31; Status DC Fentanyl Citrate 30 ml @ 2.5 mls/hr CONT PRN IV SEE PROTOCOL Last administered on 02/15/20at 09:14; Start 02/14/20 at 07:30 Fentanyl Citrate (Fentanyl 2ml Vial) 25 mcg PRN Q1HR PRN IV SEE COMMENTS; Start 02/14/20 at 07:30; Stop 02/15/20 at 18:51; Status DC Fentanyl Citrate (Fentanyl 2ml Vial) 50 mcg PRN Q1HR PRN IV SEE COMMENTS; Start 02/14/20 at 07:30; Stop 02/15/20 at 18:51; Status DC Famotidine (Pepcid Vial) 20 mg BID IVP ; Start 02/14/20 at 21:00; Stop 02/14/20 at 16:18; Status DC Potassium Chloride/Dextrose/ Sod Cl 1,000 ml @ 50 mls/hr Q20H IV Last administered on 02/16/20at 05:10; Start 02/14/20 at 11:30 Pantoprazole Sodium (PROTONIX VIAL for IV PUSH) 40 mg DAILYAC IVP Last administered on 02/16/20at 07:57; Start 02/15/20 at 07:30 Vancomycin HCl 1 gm/Sodium Chloride 250 ml @ 250 mls/hr Q12H IV Last administered on 02/16/20at 05:10; Start 02/15/20 at 17:00 Vancomycin HCl (Vanco Per Pharmacy) 1 each PRN DAILY PRN MC SEE COMMENTS; Start 02/15/20 at 16:15 Fentanyl Citrate (Fentanyl 2ml Vial) 25 mcg Q1HR ONCE IV Last administered on 02/15/20at 18:54; Start 02/15/20 at 19:00; Stop 02/15/20 at 19:01; Status DC Fentanyl Citrate (Fentanyl 2ml Vial) 25 mcg PRN Q1HR PRN IVP SEVERE PAIN 7-10 Last administered on 02/16/20at 07:58; Start 02/15/20 at 22:30 Cefazolin Sodium/ Dextrose (Ancef 2gm Premix) 2 gm STK-MED ONCE IV ; Start 02/14/20 at 07:00; Stop 02/16/20 at 06:46; Status DC Dexamethasone Sodium Phosphate (Decadron) 4 mg Q6HRS IVP ; Start 02/16/20 at 12:00 Dexamethasone Sodium Phosphate (Decadron) 4 mg 1X ONCE IVP Last administered on 02/16/20at 07:57; Start 02/16/20 at 08:00; Stop 02/16/20 at 08:01; Status DC Dexmedetomidine HCl 400 mcg/ Sodium Chloride 100 ml @ 0 mls/hr CONT PRN IV PER PROTOCOL Last administered on 02/16/20at 08:49; Start 02/16/20 at 08:30 Sodium Chloride 500 ml @ 500 mls/hr 1X PRN PRN IV SEE COMMENTS; Start 02/16/20 at 08:30 Atropine Sulfate (ATROPINE 0.5mg SYRINGE) 0.5 mg PRN Q5MIN PRN IV SEE COMMENTS; Start 02/16/20 at 08:30 Active Scripts Active Reported Flomax (Tamsulosin Hcl) 0.4 Mg Cap.er.24h 1 Cap PO DAILY Vitals/I & O Vital Sign - Last 24 Hours 02/15/20 02/15/20 02/15/20 02/15/20 10:52 11:00 11:20 11:32 Pulse 75 71 Resp 22 22 B/P (MAP) 136/58 (84) 138/58 (84) Pulse Ox 96 97 97 O2 Delivery Ventilator Ventilator Ventilator Mechanical Ventilator 02/15/20 02/15/20 02/15/20 02/15/20 11:38 12:00 13:00 14:00 Temp 98.8 98.8 Pulse 71 73 72 Resp 22 22 22 B/P (MAP) 135/57 (83) 136/58 (84) 132/62 (85) Pulse Ox 97 96 96 O2 Delivery Ventilator Ventilator Ventilator 02/15/20 02/15/20 02/15/20 02/15/20 14:35 15:00 15:15 15:37 Pulse 72 Resp 22 B/P (MAP) 140/62 (88) Pulse Ox 97 O2 Delivery Ventilator CPAP Trial Nasal Cannula Nasal Cannula O2 Flow Rate 5.0 5.0 02/15/20 02/15/20 02/15/20 02/15/20 15:58 16:00 17:00 18:00 Temp 98.8 98.8 Pulse 78 75 85 Resp 16 22 16 B/P (MAP) 135/60 (85) 142/63 (89) 126/61 (82) Pulse Ox 92 94 92 O2 Delivery Nasal Cannula CPAP Trial Nasal Cannula O2 Flow Rate 5.0 5.0 5.0 02/15/20 02/15/20 02/15/20 02/15/20 18:54 19:00 19:20 20:00 Temp 100.0 100.0 Pulse 84 76 Resp 18 14 14 16 B/P (MAP) 124/62 (82) 134/60 (84) Pulse Ox 93 92 92 96 O2 Delivery Nasal Cannula Nasal Cannula Nasal Cannula Nasal Cannula O2 Flow Rate 5.0 5.0 5.0 5.0 02/15/20 02/15/20 02/15/20 02/15/20 20:00 20:00 21:00 22:00 Pulse 76 76 106 Resp 22 16 B/P (MAP) 134/60 (84) 138/70 (92) 138/61 (86) Pulse Ox 92 95 O2 Delivery Nasal Cannula Nasal Cannula Nasal Cannula O2 Flow Rate 5.0 5.0 5.0 02/15/20 02/15/20 02/15/20 02/15/20 22:30 22:45 23:00 23:59 Pulse 88 76 77 79 Resp 16 16 16 B/P (MAP) 128/60 (82) 138/60 (86) 144/61 (88) 138/61 (86) Pulse Ox 92 91 94 O2 Delivery Nasal Cannula Nasal Cannula Nasal Cannula O2 Flow Rate 5.0 5.0 5.0 02/15/20 02/15/20 02/16/20 02/16/20 23:59 23:59 00:26 00:55 Temp 99.4 99.4 Pulse 79 Resp 18 18 B/P (MAP) 138/61 (86) Pulse Ox 95 92 94 O2 Delivery Nasal Cannula Nasal Cannula Nasal Cannula Nasal Cannula O2 Flow Rate 5.0 5.0 5.0 5.0 02/16/20 02/16/20 02/16/20 02/16/20 01:00 02:00 02:15 02:26 Pulse 90 79 90 Resp 16 16 20 20 B/P (MAP) 135/65 (88) 156/62 (93) 157/65 (95) Pulse Ox 96 96 96 96 O2 Delivery Nasal Cannula Nasal Cannula Nasal Cannula Nasal Cannula O2 Flow Rate 5.0 5.0 5.0 5.0 02/16/20 02/16/20 02/16/20 02/16/20 02:30 02:45 02:50 03:00 Pulse 83 84 87 Resp 18 18 18 22 B/P (MAP) 143/60 (87) 146/60 (88) 147/61 (89) Pulse Ox 96 94 94 94 O2 Delivery Nasal Cannula Nasal Cannula Nasal Cannula Nasal Cannula O2 Flow Rate 5.0 5.0 5.0 5.0 02/16/20 02/16/20 02/16/20 02/16/20 03:30 04:00 04:00 04:00 Temp 99.5 99.5 Pulse 97 97 Resp 24 18 18 B/P (MAP) 139/61 (87) 139/61 (87) Pulse Ox 90 93 93 O2 Delivery Nasal Cannula Nasal Cannula Nasal Cannula O2 Flow Rate 5.0 5.0 5.0 02/16/20 02/16/20 02/16/20 02/16/20 04:00 05:00 06:00 06:01 Pulse 99 103 Resp 20 20 20 B/P (MAP) 128/60 (82) 121/60 (80) Pulse Ox 93 90 90 O2 Delivery Nasal Cannula Nasal Cannula Nasal Cannula Nasal Cannula O2 Flow Rate 5.0 5.0 5.0 5.0 02/16/20 02/16/20 02/16/20 02/16/20 06:45 07:00 07:15 07:38 Pulse 123 Resp 22 23 B/P (MAP) 118/63 (81) 94/56 (69) Pulse Ox 88 89 O2 Delivery NonRebreather Mask NonRebreather Mask Non-Rebreather O2 Flow Rate 15.0 15.0 15.0 02/16/20 02/16/20 02/16/20 02/16/20 07:58 08:00 08:00 08:25 Temp 99.2 99.2 Pulse 103 Resp 21 19 B/P (MAP) 116/63 (80) Pulse Ox 90 91 91 O2 Delivery NonRebreather Mask NonRebreather Mask BiPAP/CPAP O2 Flow Rate 15.0 15.0 02/16/20 02/16/20 02/16/20 08:28 09:00 09:00 Pulse 102 Resp 16 18 B/P (MAP) 125/64 (84) Pulse Ox 90 91 90 O2 Delivery BiPAP/CPAP BiPAP/CPAP Intake and Output 02/15/20 02/15/20 02/16/20 15:00 23:00 07:00 Intake Total 1353 ml 742 ml Output Total 1393 ml 570 ml 512 ml Balance -1393 ml 783 ml 230 ml Justicifation of Admission Dx: Justifications for Admission: Justification of Admission Dx: Yes Acute Hemorrhagic Stroke: Acute Hemorrhagic Stroke ROSA NORTH MD Feb 16, 2020 10:19
--- NOTE | 2020-02-16 10:20 | PDOC ---
PROGRESS NOTES Date of Service DATE: 02/16/20 TIME: 10:15 Subjective Subjective Patient seen and examined calm, resting with eyes closed on Precedex gtt left hemiparesis right upper extremity restrained EVD in place- output noted, dressing intact, ICP <10 hypoxic this AM, now on Bipap Will raise drip chamber on EVD as tolerated SCDs BP control, on Cardene gtt D/W RN and Dr. Blackwood Objective Objective Vital Signs Date Time Temp Pulse Resp B/P (MAP) Pulse Ox O2 Delivery O2 Flow Rate FiO2 02/16/20 09:00 102 18 125/64 (84) 90 BiPAP/CPAP 02/16/20 08:00 99.2 15.0 99.2 Intake and Output 02/16/20 07:00 Intake Total 2095 ml Output Total 2475 ml Balance -380 ml Intake IV Total 2095 ml Output Urine Total 1735 ml Gastric Drainage Total 450 ml Drainage Total 290 ml Assessment Assessment Problems Medical Problems: (1) Intraparenchymal hemorrhage of brain Status: Acute Comment Review of Relevant I have reviewed the following items faraz (where applicable) has been applied. Labs Laboratory Tests Test 02/14/20 14:35 02/15/20 05:00 02/15/20 07:40 02/15/20 15:05 Sodium Level 142 mmol/L (136-145) 139 mmol/L (136-145) Potassium Level 3.5 mmol/L (3.5-5.1) 3.7 mmol/L (3.5-5.1) Chloride Level 107 mmol/L (98-107) 105 mmol/L (98-107) Carbon Dioxide Level 28 mmol/L (21-32) 31 mmol/L (21-32) Anion Gap 7 (6-14) 3 (6-14) Blood Urea Nitrogen 14 mg/dL (8-26) 13 mg/dL (8-26) Creatinine 0.7 mg/dL (0.7-1.3) 0.7 mg/dL (0.7-1.3) Estimated GFR (Cockcroft-Gault) 113.5 113.5 Glucose Level 127 mg/dL (70-99) 145 mg/dL (70-99) Calcium Level 8.2 mg/dL (8.5-10.1) 8.0 mg/dL (8.5-10.1) Magnesium Level 2.2 mg/dL (1.8-2.4) White Blood Count 12.4 x10^3/uL (4.0-11.0) Red Blood Count 4.49 x10^6/uL (4.30-5.70) Hemoglobin 13.5 g/dL (13.0-17.5) Hematocrit 39.8 % (39.0-53.0) Mean Corpuscular Volume 89 fL (79-100) Mean Corpuscular Hemoglobin 30 pg (25-35) Mean Corpuscular Hemoglobin Concent 34 g/dL (31-37) Red Cell Distribution Width 13.8 % (11.5-14.5) Platelet Count 202 x10^3/uL (140-400) Neutrophils (%) (Auto) 79 % (31-73) Lymphocytes (%) (Auto) 10 % (24-48) Monocytes (%) (Auto) 10 % (0-9) Eosinophils (%) (Auto) 0 % (0-3) Basophils (%) (Auto) 0 % (0-3) Neutrophils # (Auto) 9.8 x10^3/uL (1.8-7.7) Lymphocytes # (Auto) 1.3 x10^3/uL (1.0-4.8) Monocytes # (Auto) 1.3 x10^3/uL (0.0-1.1) Eosinophils # (Auto) 0.0 x10^3/uL (0.0-0.7) Basophils # (Auto) 0.0 x10^3/uL (0.0-0.2) O2 Saturation 98 % (92-99) 98 % (92-99) Arterial Blood pH 7.38 (7.35-7.45) 7.38 (7.35-7.45) Arterial Blood pCO2 at Patient Temp 45 mmHg (35-46) 49 mmHg (35-46) Arterial Blood pO2 at Patient Temp 102 mmHg (65-108) 98 mmHg (65-108) Arterial Blood HCO3 26 mmol/L (21-28) 29 mmol/L (21-28) Arterial Blood Base Excess 1 mmol/L (-3-3) 3 mmol/L (-3-3) FiO2 40 40 Test 02/16/20 06:39 02/16/20 06:49 02/16/20 06:50 O2 Saturation 90 % (92-99) Arterial Blood pH 7.45 (7.35-7.45) Arterial Blood pCO2 at Patient Temp 32 mmHg (35-46) Arterial Blood pO2 at Patient Temp 54 mmHg (65-108) Arterial Blood HCO3 22 mmol/L (21-28) Arterial Blood Base Excess -1 mmol/L (-3-3) FiO2 100 Glucose (Fingerstick) 152 mg/dL (70-99) White Blood Count 13.8 x10^3/uL (4.0-11.0) Red Blood Count 4.19 x10^6/uL (4.30-5.70) Hemoglobin 12.7 g/dL (13.0-17.5) Hematocrit 37.3 % (39.0-53.0) Mean Corpuscular Volume 89 fL (79-100) Mean Corpuscular Hemoglobin 30 pg (25-35) Mean Corpuscular Hemoglobin Concent 34 g/dL (31-37) Red Cell Distribution Width 13.7 % (11.5-14.5) Platelet Count 182 x10^3/uL (140-400) Sodium Level 140 mmol/L (136-145) Potassium Level 3.7 mmol/L (3.5-5.1) Chloride Level 107 mmol/L (98-107) Carbon Dioxide Level 24 mmol/L (21-32) Anion Gap 9 (6-14) Blood Urea Nitrogen 18 mg/dL (8-26) Creatinine 0.8 mg/dL (0.7-1.3) Estimated GFR (Cockcroft-Gault) 97.3 Glucose Level 152 mg/dL (70-99) Calcium Level 8.3 mg/dL (8.5-10.1) Laboratory Tests Test 02/15/20 15:05 02/16/20 06:39 02/16/20 06:49 02/16/20 06:50 O2 Saturation 98 % (92-99) 90 % (92-99) Arterial Blood pH 7.38 (7.35-7.45) 7.45 (7.35-7.45) Arterial Blood pCO2 at Patient Temp 49 mmHg (35-46) 32 mmHg (35-46) Arterial Blood pO2 at Patient Temp 98 mmHg (65-108) 54 mmHg (65-108) Arterial Blood HCO3 29 mmol/L (21-28) 22 mmol/L (21-28) Arterial Blood Base Excess 3 mmol/L (-3-3) -1 mmol/L (-3-3) FiO2 40 100 Glucose (Fingerstick) 152 mg/dL (70-99) White Blood Count 13.8 x10^3/uL (4.0-11.0) Red Blood Count 4.19 x10^6/uL (4.30-5.70) Hemoglobin 12.7 g/dL (13.0-17.5) Hematocrit 37.3 % (39.0-53.0) Mean Corpuscular Volume 89 fL (79-100) Mean Corpuscular Hemoglobin 30 pg (25-35) Mean Corpuscular Hemoglobin Concent 34 g/dL (31-37) Red Cell Distribution Width 13.7 % (11.5-14.5) Platelet Count 182 x10^3/uL (140-400) Sodium Level 140 mmol/L (136-145) Potassium Level 3.7 mmol/L (3.5-5.1) Chloride Level 107 mmol/L (98-107) Carbon Dioxide Level 24 mmol/L (21-32) Anion Gap 9 (6-14) Blood Urea Nitrogen 18 mg/dL (8-26) Creatinine 0.8 mg/dL (0.7-1.3) Estimated GFR (Cockcroft-Gault) 97.3 Glucose Level 152 mg/dL (70-99) Calcium Level 8.3 mg/dL (8.5-10.1) Medications Current Medications Nicardipine HCl 50 mg/Sodium Chloride 250 ml @ 12.5 mls/hr CONT PRN IV SEE I/O RECORD Last administered on 02/16/20at 05:11; Start 02/14/20 at 03:30 Ondansetron HCl (Zofran) 8 mg 1X ONCE IVP Last administered on 02/14/20at 03:48; Start 02/14/20 at 04:00; Stop 02/14/20 at 04:01; Status DC Metoclopramide HCl (Reglan Vial) 10 mg STK-MED ONCE .ROUTE ; Start 02/14/20 at 04:00; Stop 02/14/20 at 04:00; Status DC Diphenhydramine HCl (Benadryl) 50 mg STK-MED ONCE .ROUTE ; Start 02/14/20 at 04:02; Stop 02/14/20 at 04:02; Status DC Hydromorphone HCl (Dilaudid) 2 mg STK-MED ONCE .ROUTE ; Start 02/14/20 at 04:02; Stop 02/14/20 at 04:03; Status DC Lidocaine HCl (Lidocaine 1% 20ml Vial) 20 ml STK-MED ONCE .ROUTE ; Start 02/14/20 at 04:11; Stop 02/14/20 at 04:12; Status DC Ondansetron HCl (Zofran) 4 mg PRN Q8HRS PRN IV NAUSEA/VOMITING 1ST CHOICE; Start 02/14/20 at 04:45; Stop 02/15/20 at 04:44; Status DC Morphine Sulfate (Morphine Sulfate) 4 mg PRN Q2HR PRN IV SEVERE PAIN 7-10; Start 02/14/20 at 04:45; Stop 02/15/20 at 04:44; Status DC Rocuronium [place] (Zemuron) 100 mg 1X ONCE IV Last administered on 02/14/20at 04:56; Start 02/14/20 at 05:00; Stop 02/14/20 at 05:01; Status DC Etomidate (Amidate) 20 mg 1X ONCE IV Last administered on 02/14/20at 04:56; Start 02/14/20 at 05:00; Stop 02/14/20 at 05:01; Status DC Fentanyl Citrate (Fentanyl 2ml Vial) 100 mcg 1X ONCE IVP Last administered on 02/14/20at 04:55; Start 02/14/20 at 05:00; Stop 02/14/20 at 05:01; Status DC Propofol (Diprivan) 200 mg STK-MED ONCE IV ; Start 02/14/20 at 05:02; Stop 02/14/20 at 05:03; Status DC Propofol 50 ml @ As Directed STK-MED ONCE IV ; Start 02/14/20 at 05:03; Stop 02/14/20 at 05:03; Status DC Propofol (Diprivan) 200 mg 1X ONCE IV ; Start 02/14/20 at 05:30; Stop 02/14/20 at 05:31; Status DC Vancomycin HCl 250 ml @ 250 mls/hr PREOP PRN PRN IV PREOP Last administered on 02/14/20at 06:48; Start 02/14/20 at 06:00; Stop 02/15/20 at 05:59; Status DC Propofol 100 ml @ 0 mls/hr CONT PRN IV SEE I/O RECORD Last administered on 02/14/20at 11:30; Start 02/14/20 at 06:30 Fentanyl Citrate (Fentanyl 2ml Vial) 50 mcg 1X ONCE IVP Last administered on 02/14/20at 06:48; Start 02/14/20 at 07:00; Stop 02/14/20 at 07:01; Status DC Lidocaine HCl (Xylocaine-Mpf 1% 2ml Vial) 2 ml STK-MED ONCE .ROUTE ; Start 02/14/20 at 06:43; Stop 02/14/20 at 06:43; Status DC Fentanyl Citrate (Fentanyl 2ml Vial) 50 mcg 1X ONCE IVP Last administered on 02/14/20at 07:23; Start 02/14/20 at 07:30; Stop 02/14/20 at 07:31; Status DC Fentanyl Citrate 30 ml @ 2.5 mls/hr CONT PRN IV SEE PROTOCOL Last administered on 02/15/20at 09:14; Start 02/14/20 at 07:30 Fentanyl Citrate (Fentanyl 2ml Vial) 25 mcg PRN Q1HR PRN IV SEE COMMENTS; Start 02/14/20 at 07:30; Stop 02/15/20 at 18:51; Status DC Fentanyl Citrate (Fentanyl 2ml Vial) 50 mcg PRN Q1HR PRN IV SEE COMMENTS; Start 02/14/20 at 07:30; Stop 02/15/20 at 18:51; Status DC Famotidine (Pepcid Vial) 20 mg BID IVP ; Start 02/14/20 at 21:00; Stop 02/14/20 at 16:18; Status DC Potassium Chloride/Dextrose/ Sod Cl 1,000 ml @ 50 mls/hr Q20H IV Last administered on 02/16/20at 05:10; Start 02/14/20 at 11:30 Pantoprazole Sodium (PROTONIX VIAL for IV PUSH) 40 mg DAILYAC IVP Last administered on 02/16/20at 07:57; Start 02/15/20 at 07:30 Vancomycin HCl 1 gm/Sodium Chloride 250 ml @ 250 mls/hr Q12H IV Last administered on 02/16/20at 05:10; Start 02/15/20 at 17:00 Vancomycin HCl (Vanco Per Pharmacy) 1 each PRN DAILY PRN MC SEE COMMENTS; Start 02/15/20 at 16:15 Fentanyl Citrate (Fentanyl 2ml Vial) 25 mcg Q1HR ONCE IV Last administered on 02/15/20at 18:54; Start 02/15/20 at 19:00; Stop 02/15/20 at 19:01; Status DC Fentanyl Citrate (Fentanyl 2ml Vial) 25 mcg PRN Q1HR PRN IVP SEVERE PAIN 7-10 Last administered on 02/16/20at 07:58; Start 02/15/20 at 22:30 Cefazolin Sodium/ Dextrose (Ancef 2gm Premix) 2 gm STK-MED ONCE IV ; Start 02/14/20 at 07:00; Stop 02/16/20 at 06:46; Status DC Dexamethasone Sodium Phosphate (Decadron) 4 mg Q6HRS IVP ; Start 02/16/20 at 12:00 Dexamethasone Sodium Phosphate (Decadron) 4 mg 1X ONCE IVP Last administered on 02/16/20at 07:57; Start 02/16/20 at 08:00; Stop 02/16/20 at 08:01; Status DC Dexmedetomidine HCl 400 mcg/ Sodium Chloride 100 ml @ 0 mls/hr CONT PRN IV PER PROTOCOL Last administered on 02/16/20at 08:49; Start 02/16/20 at 08:30 Sodium Chloride 500 ml @ 500 mls/hr 1X PRN PRN IV SEE COMMENTS; Start 02/16/20 at 08:30 Atropine Sulfate (ATROPINE 0.5mg SYRINGE) 0.5 mg PRN Q5MIN PRN IV SEE COMMENTS; Start 02/16/20 at 08:30 Active Scripts Active Reported Flomax (Tamsulosin Hcl) 0.4 Mg Cap.er.24h 1 Cap PO DAILY Vitals/I & O Vital Sign - Last 24 Hours 02/15/20 02/15/20 02/15/20 02/15/20 10:52 11:00 11:20 11:32 Pulse 75 71 Resp 22 22 B/P (MAP) 136/58 (84) 138/58 (84) Pulse Ox 96 97 97 O2 Delivery Ventilator Ventilator Ventilator Mechanical Ventilator 02/15/20 02/15/20 02/15/20 02/15/20 11:38 12:00 13:00 14:00 Temp 98.8 98.8 Pulse 71 73 72 Resp 22 22 22 B/P (MAP) 135/57 (83) 136/58 (84) 132/62 (85) Pulse Ox 97 96 96 O2 Delivery Ventilator Ventilator Ventilator 02/15/20 02/15/20 02/15/20 02/15/20 14:35 15:00 15:15 15:37 Pulse 72 Resp 22 B/P (MAP) 140/62 (88) Pulse Ox 97 O2 Delivery Ventilator CPAP Trial Nasal Cannula Nasal Cannula O2 Flow Rate 5.0 5.0 02/15/20 02/15/20 02/15/20 02/15/20 15:58 16:00 17:00 18:00 Temp 98.8 98.8 Pulse 78 75 85 Resp 16 22 16 B/P (MAP) 135/60 (85) 142/63 (89) 126/61 (82) Pulse Ox 92 94 92 O2 Delivery Nasal Cannula CPAP Trial Nasal Cannula O2 Flow Rate 5.0 5.0 5.0 02/15/20 02/15/20 02/15/20 02/15/20 18:54 19:00 19:20 20:00 Temp 100.0 100.0 Pulse 84 76 Resp 18 14 14 16 B/P (MAP) 124/62 (82) 134/60 (84) Pulse Ox 93 92 92 96 O2 Delivery Nasal Cannula Nasal Cannula Nasal Cannula Nasal Cannula O2 Flow Rate 5.0 5.0 5.0 5.0 02/15/20 02/15/20 02/15/20 02/15/20 20:00 20:00 21:00 22:00 Pulse 76 76 106 Resp 22 16 B/P (MAP) 134/60 (84) 138/70 (92) 138/61 (86) Pulse Ox 92 95 O2 Delivery Nasal Cannula Nasal Cannula Nasal Cannula O2 Flow Rate 5.0 5.0 5.0 02/15/20 02/15/20 02/15/20 02/15/20 22:30 22:45 23:00 23:59 Pulse 88 76 77 79 Resp 16 16 16 B/P (MAP) 128/60 (82) 138/60 (86) 144/61 (88) 138/61 (86) Pulse Ox 92 91 94 O2 Delivery Nasal Cannula Nasal Cannula Nasal Cannula O2 Flow Rate 5.0 5.0 5.0 02/15/20 02/15/20 02/16/20 02/16/20 23:59 23:59 00:26 00:55 Temp 99.4 99.4 Pulse 79 Resp 18 18 B/P (MAP) 138/61 (86) Pulse Ox 95 92 94 O2 Delivery Nasal Cannula Nasal Cannula Nasal Cannula Nasal Cannula O2 Flow Rate 5.0 5.0 5.0 5.0 02/16/20 02/16/20 02/16/20 02/16/20 01:00 02:00 02:15 02:26 Pulse 90 79 90 Resp 16 16 20 20 B/P (MAP) 135/65 (88) 156/62 (93) 157/65 (95) Pulse Ox 96 96 96 96 O2 Delivery Nasal Cannula Nasal Cannula Nasal Cannula Nasal Cannula O2 Flow Rate 5.0 5.0 5.0 5.0 02/16/20 02/16/20 02/16/20 02/16/20 02:30 02:45 02:50 03:00 Pulse 83 84 87 Resp 18 18 18 22 B/P (MAP) 143/60 (87) 146/60 (88) 147/61 (89) Pulse Ox 96 94 94 94 O2 Delivery Nasal Cannula Nasal Cannula Nasal Cannula Nasal Cannula O2 Flow Rate 5.0 5.0 5.0 5.0 02/16/20 02/16/20 02/16/20 02/16/20 03:30 04:00 04:00 04:00 Temp 99.5 99.5 Pulse 97 97 Resp 18 18 B/P (MAP) 139/61 (87) 139/61 (87) Pulse Ox 90 93 93 O2 Delivery Nasal Cannula Nasal Cannula Nasal Cannula O2 Flow Rate 5.0 5.0 5.0 02/16/20 02/16/20 02/16/20 02/16/20 04:00 05:00 06:00 06:01 Pulse 99 103 Resp 20 20 20 B/P (MAP) 128/60 (82) 121/60 (80) Pulse Ox 93 90 90 O2 Delivery Nasal Cannula Nasal Cannula Nasal Cannula Nasal Cannula O2 Flow Rate 5.0 5.0 5.0 5.0 02/16/20 02/16/20 02/16/20 02/16/20 06:45 07:00 07:15 07:38 Pulse 123 Resp 22 23 B/P (MAP) 118/63 (81) 94/56 (69) Pulse Ox 88 89 O2 Delivery NonRebreather Mask NonRebreather Mask Non-Rebreather O2 Flow Rate 15.0 15.0 15.0 02/16/20 02/16/20 02/16/20 02/16/20 07:58 08:00 08:00 08:25 Temp 99.2 99.2 Pulse 103 Resp 21 19 B/P (MAP) 116/63 (80) Pulse Ox 90 91 91 O2 Delivery NonRebreather Mask NonRebreather Mask BiPAP/CPAP O2 Flow Rate 15.0 15.0 02/16/20 02/16/20 02/16/20 08:28 09:00 09:00 Pulse 102 Resp 16 18 B/P (MAP) 125/64 (84) Pulse Ox 90 91 90 O2 Delivery BiPAP/CPAP BiPAP/CPAP Intake and Output 02/15/20 02/15/20 02/16/20 15:00 23:00 07:00 Intake Total 1353 ml 742 ml Output Total 1393 ml 570 ml 512 ml Balance -1393 ml 783 ml 230 ml Justifications for Admission Other Justification KELLI JOY MD Feb 16, 2020 10:20
--- NOTE | 2020-02-16 10:23 | NUR ---
Ventriculostomy drain drip chamber elevated per Dr. Jones and is marked. HOB at 25 degrees.
--- NOTE | 2020-02-16 10:30 | PDOC ---
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 He developed acute hydrocephalus and required an emergent EVD Acute respiratory failure, extubated. Dense left hemiparesis. Plan Monitor in intensive care unit. No need for prophylactic anticonvulsants Agree with as-needed sedation as per neurosurgery Subjective None Objective Vital Signs Date Time Temp Pulse Resp B/P (MAP) Pulse Ox O2 Delivery O2 Flow Rate FiO2 02/16/20 10:00 93 18 124/60 (81) 92 BiPAP/CPAP 02/16/20 08:00 99.2 15.0 99.2 Intake and Output 02/16/20 07:00 Intake Total 2095 ml Output Total 2475 ml Balance -380 ml Intake IV Total 2095 ml Output Urine Total 1735 ml Gastric Drainage Total 450 ml Drainage Total 290 ml PHYSICAL EXAM Lethargic, moves right side to commands. PERRL. EOMI. CN: no focal findings. Muscle tone:normal in left arm, increased in left leg Muscle strength: Left hemiparesis DTR: 2+ Plantar reflex: extensor on the left Gait: not examined in bed. Sensory exam: no abnormal findings. No cerebellar signs elicited. Review of Relevant I have reviewed the following items faraz (where applicable) has been applied. Labs Laboratory Tests Test 02/14/20 14:35 02/15/20 05:00 02/15/20 07:40 02/15/20 15:05 Sodium Level 142 mmol/L (136-145) 139 mmol/L (136-145) Potassium Level 3.5 mmol/L (3.5-5.1) 3.7 mmol/L (3.5-5.1) Chloride Level 107 mmol/L (98-107) 105 mmol/L (98-107) Carbon Dioxide Level 28 mmol/L (21-32) 31 mmol/L (21-32) Anion Gap 7 (6-14) 3 (6-14) Blood Urea Nitrogen 14 mg/dL (8-26) 13 mg/dL (8-26) Creatinine 0.7 mg/dL (0.7-1.3) 0.7 mg/dL (0.7-1.3) Estimated GFR (Cockcroft-Gault) 113.5 113.5 Glucose Level 127 mg/dL (70-99) 145 mg/dL (70-99) Calcium Level 8.2 mg/dL (8.5-10.1) 8.0 mg/dL (8.5-10.1) Magnesium Level 2.2 mg/dL (1.8-2.4) White Blood Count 12.4 x10^3/uL (4.0-11.0) Red Blood Count 4.49 x10^6/uL (4.30-5.70) Hemoglobin 13.5 g/dL (13.0-17.5) Hematocrit 39.8 % (39.0-53.0) Mean Corpuscular Volume 89 fL (79-100) Mean Corpuscular Hemoglobin 30 pg (25-35) Mean Corpuscular Hemoglobin Concent 34 g/dL (31-37) Red Cell Distribution Width 13.8 % (11.5-14.5) Platelet Count 202 x10^3/uL (140-400) Neutrophils (%) (Auto) 79 % (31-73) Lymphocytes (%) (Auto) 10 % (24-48) Monocytes (%) (Auto) 10 % (0-9) Eosinophils (%) (Auto) 0 % (0-3) Basophils (%) (Auto) 0 % (0-3) Neutrophils # (Auto) 9.8 x10^3/uL (1.8-7.7) Lymphocytes # (Auto) 1.3 x10^3/uL (1.0-4.8) Monocytes # (Auto) 1.3 x10^3/uL (0.0-1.1) Eosinophils # (Auto) 0.0 x10^3/uL (0.0-0.7) Basophils # (Auto) 0.0 x10^3/uL (0.0-0.2) O2 Saturation 98 % (92-99) 98 % (92-99) Arterial Blood pH 7.38 (7.35-7.45) 7.38 (7.35-7.45) Arterial Blood pCO2 at Patient Temp 45 mmHg (35-46) 49 mmHg (35-46) Arterial Blood pO2 at Patient Temp 102 mmHg (65-108) 98 mmHg (65-108) Arterial Blood HCO3 26 mmol/L (21-28) 29 mmol/L (21-28) Arterial Blood Base Excess 1 mmol/L (-3-3) 3 mmol/L (-3-3) FiO2 40 40 Test 02/16/20 06:39 02/16/20 06:49 02/16/20 06:50 O2 Saturation 90 % (92-99) Arterial Blood pH 7.45 (7.35-7.45) Arterial Blood pCO2 at Patient Temp 32 mmHg (35-46) Arterial Blood pO2 at Patient Temp 54 mmHg (65-108) Arterial Blood HCO3 22 mmol/L (21-28) Arterial Blood Base Excess -1 mmol/L (-3-3) FiO2 100 Glucose (Fingerstick) 152 mg/dL (70-99) White Blood Count 13.8 x10^3/uL (4.0-11.0) Red Blood Count 4.19 x10^6/uL (4.30-5.70) Hemoglobin 12.7 g/dL (13.0-17.5) Hematocrit 37.3 % (39.0-53.0) Mean Corpuscular Volume 89 fL (79-100) Mean Corpuscular Hemoglobin 30 pg (25-35) Mean Corpuscular Hemoglobin Concent 34 g/dL (31-37) Red Cell Distribution Width 13.7 % (11.5-14.5) Platelet Count 182 x10^3/uL (140-400) Sodium Level 140 mmol/L (136-145) Potassium Level 3.7 mmol/L (3.5-5.1) Chloride Level 107 mmol/L (98-107) Carbon Dioxide Level 24 mmol/L (21-32) Anion Gap 9 (6-14) Blood Urea Nitrogen 18 mg/dL (8-26) Creatinine 0.8 mg/dL (0.7-1.3) Estimated GFR (Cockcroft-Gault) 97.3 Glucose Level 152 mg/dL (70-99) Calcium Level 8.3 mg/dL (8.5-10.1) Laboratory Tests Test 02/15/20 15:05 02/16/20 06:39 02/16/20 06:49 02/16/20 06:50 O2 Saturation 98 % (92-99) 90 % (92-99) Arterial Blood pH 7.38 (7.35-7.45) 7.45 (7.35-7.45) Arterial Blood pCO2 at Patient Temp 49 mmHg (35-46) 32 mmHg (35-46) Arterial Blood pO2 at Patient Temp 98 mmHg (65-108) 54 mmHg (65-108) Arterial Blood HCO3 29 mmol/L (21-28) 22 mmol/L (21-28) Arterial Blood Base Excess 3 mmol/L (-3-3) -1 mmol/L (-3-3) FiO2 40 100 Glucose (Fingerstick) 152 mg/dL (70-99) White Blood Count 13.8 x10^3/uL (4.0-11.0) Red Blood Count 4.19 x10^6/uL (4.30-5.70) Hemoglobin 12.7 g/dL (13.0-17.5) Hematocrit 37.3 % (39.0-53.0) Mean Corpuscular Volume 89 fL (79-100) Mean Corpuscular Hemoglobin 30 pg (25-35) Mean Corpuscular Hemoglobin Concent 34 g/dL (31-37) Red Cell Distribution Width 13.7 % (11.5-14.5) Platelet Count 182 x10^3/uL (140-400) Sodium Level 140 mmol/L (136-145) Potassium Level 3.7 mmol/L (3.5-5.1) Chloride Level 107 mmol/L (98-107) Carbon Dioxide Level 24 mmol/L (21-32) Anion Gap 9 (6-14) Blood Urea Nitrogen 18 mg/dL (8-26) Creatinine 0.8 mg/dL (0.7-1.3) Estimated GFR (Cockcroft-Gault) 97.3 Glucose Level 152 mg/dL (70-99) Calcium Level 8.3 mg/dL (8.5-10.1) Medications Current Medications Nicardipine HCl 50 mg/Sodium Chloride 250 ml @ 12.5 mls/hr CONT PRN IV SEE I/O RECORD Last administered on 02/16/20at 05:11; Start 02/14/20 at 03:30 Ondansetron HCl (Zofran) 8 mg 1X ONCE IVP Last administered on 02/14/20at 03:48; Start 02/14/20 at 04:00; Stop 02/14/20 at 04:01; Status DC Metoclopramide HCl (Reglan Vial) 10 mg STK-MED ONCE .ROUTE ; Start 02/14/20 at 04:00; Stop 02/14/20 at 04:00; Status DC Diphenhydramine HCl (Benadryl) 50 mg STK-MED ONCE .ROUTE ; Start 02/14/20 at 04:02; Stop 02/14/20 at 04:02; Status DC Hydromorphone HCl (Dilaudid) 2 mg STK-MED ONCE .ROUTE ; Start 02/14/20 at 04:02; Stop 02/14/20 at 04:03; Status DC Lidocaine HCl (Lidocaine 1% 20ml Vial) 20 ml STK-MED ONCE .ROUTE ; Start 02/14/20 at 04:11; Stop 02/14/20 at 04:12; Status DC Ondansetron HCl (Zofran) 4 mg PRN Q8HRS PRN IV NAUSEA/VOMITING 1ST CHOICE; Start 02/14/20 at 04:45; Stop 02/15/20 at 04:44; Status DC Morphine Sulfate (Morphine Sulfate) 4 mg PRN Q2HR PRN IV SEVERE PAIN 7-10; Start 02/14/20 at 04:45; Stop 02/15/20 at 04:44; Status DC Rocuronium [place] (Zemuron) 100 mg 1X ONCE IV Last administered on 02/14/20at 04:56; Start 02/14/20 at 05:00; Stop 02/14/20 at 05:01; Status DC Etomidate (Amidate) 20 mg 1X ONCE IV Last administered on 02/14/20at 04:56; Start 02/14/20 at 05:00; Stop 02/14/20 at 05:01; Status DC Fentanyl Citrate (Fentanyl 2ml Vial) 100 mcg 1X ONCE IVP Last administered on 02/14/20at 04:55; Start 02/14/20 at 05:00; Stop 02/14/20 at 05:01; Status DC Propofol (Diprivan) 200 mg STK-MED ONCE IV ; Start 02/14/20 at 05:02; Stop 02/14/20 at 05:03; Status DC Propofol 50 ml @ As Directed STK-MED ONCE IV ; Start 02/14/20 at 05:03; Stop 02/14/20 at 05:03; Status DC Propofol (Diprivan) 200 mg 1X ONCE IV ; Start 02/14/20 at 05:30; Stop 02/14/20 at 05:31; Status DC Vancomycin HCl 250 ml @ 250 mls/hr PREOP PRN PRN IV PREOP Last administered on 02/14/20at 06:48; Start 02/14/20 at 06:00; Stop 02/15/20 at 05:59; Status DC Propofol 100 ml @ 0 mls/hr CONT PRN IV SEE I/O RECORD Last administered on 02/14/20at 11:30; Start 02/14/20 at 06:30 Fentanyl Citrate (Fentanyl 2ml Vial) 50 mcg 1X ONCE IVP Last administered on 02/14/20at 06:48; Start 02/14/20 at 07:00; Stop 02/14/20 at 07:01; Status DC Lidocaine HCl (Xylocaine-Mpf 1% 2ml Vial) 2 ml STK-MED ONCE .ROUTE ; Start 02/14/20 at 06:43; Stop 02/14/20 at 06:43; Status DC Fentanyl Citrate (Fentanyl 2ml Vial) 50 mcg 1X ONCE IVP Last administered on 02/14/20at 07:23; Start 02/14/20 at 07:30; Stop 02/14/20 at 07:31; Status DC Fentanyl Citrate 30 ml @ 2.5 mls/hr CONT PRN IV SEE PROTOCOL Last administered on 02/15/20at 09:14; Start 02/14/20 at 07:30 Fentanyl Citrate (Fentanyl 2ml Vial) 25 mcg PRN Q1HR PRN IV SEE COMMENTS; Start 02/14/20 at 07:30; Stop 02/15/20 at 18:51; Status DC Fentanyl Citrate (Fentanyl 2ml Vial) 50 mcg PRN Q1HR PRN IV SEE COMMENTS; Start 02/14/20 at 07:30; Stop 02/15/20 at 18:51; Status DC Famotidine (Pepcid Vial) 20 mg BID IVP ; Start 02/14/20 at 21:00; Stop 02/14/20 at 16:18; Status DC Potassium Chloride/Dextrose/ Sod Cl 1,000 ml @ 50 mls/hr Q20H IV Last administered on 02/16/20at 05:10; Start 02/14/20 at 11:30 Pantoprazole Sodium (PROTONIX VIAL for IV PUSH) 40 mg DAILYAC IVP Last administered on 02/16/20at 07:57; Start 02/15/20 at 07:30 Vancomycin HCl 1 gm/Sodium Chloride 250 ml @ 250 mls/hr Q12H IV Last administered on 02/16/20at 05:10; Start 02/15/20 at 17:00 Vancomycin HCl (Vanco Per Pharmacy) 1 each PRN DAILY PRN MC SEE COMMENTS; Start 02/15/20 at 16:15 Fentanyl Citrate (Fentanyl 2ml Vial) 25 mcg Q1HR ONCE IV Last administered on 02/15/20at 18:54; Start 02/15/20 at 19:00; Stop 02/15/20 at 19:01; Status DC Fentanyl Citrate (Fentanyl 2ml Vial) 25 mcg PRN Q1HR PRN IVP SEVERE PAIN 7-10 Last administered on 02/16/20at 07:58; Start 02/15/20 at 22:30 Cefazolin Sodium/ Dextrose (Ancef 2gm Premix) 2 gm STK-MED ONCE IV ; Start 02/14/20 at 07:00; Stop 02/16/20 at 06:46; Status DC Dexamethasone Sodium Phosphate (Decadron) 4 mg Q6HRS IVP ; Start 02/16/20 at 12:00 Dexamethasone Sodium Phosphate (Decadron) 4 mg 1X ONCE IVP Last administered on 02/16/20at 07:57; Start 02/16/20 at 08:00; Stop 02/16/20 at 08:01; Status DC Dexmedetomidine HCl 400 mcg/ Sodium Chloride 100 ml @ 0 mls/hr CONT PRN IV PER PROTOCOL Last administered on 02/16/20at 08:49; Start 02/16/20 at 08:30 Sodium Chloride 500 ml @ 500 mls/hr 1X PRN PRN IV SEE COMMENTS; Start 02/16/20 at 08:30 Atropine Sulfate (ATROPINE 0.5mg SYRINGE) 0.5 mg PRN Q5MIN PRN IV SEE COMMENTS; Start 02/16/20 at 08:30 Active Scripts Active Reported Flomax (Tamsulosin Hcl) 0.4 Mg Cap.er.24h 1 Cap PO DAILY Vitals/I & O Vital Sign - Last 24 Hours 02/15/20 02/15/20 02/15/20 02/15/20 10:52 11:00 11:20 11:32 Pulse 75 71 Resp 22 22 B/P (MAP) 136/58 (84) 138/58 (84) Pulse Ox 96 97 97 O2 Delivery Ventilator Ventilator Ventilator Mechanical Ventilator 02/15/20 02/15/20 02/15/20 02/15/20 11:38 12:00 13:00 14:00 Temp 98.8 98.8 Pulse 71 73 72 Resp 22 22 22 B/P (MAP) 135/57 (83) 136/58 (84) 132/62 (85) Pulse Ox 97 96 96 O2 Delivery Ventilator Ventilator Ventilator 02/15/20 02/15/20 02/15/20 02/15/20 14:35 15:00 15:15 15:37 Pulse 72 Resp 22 B/P (MAP) 140/62 (88) Pulse Ox 97 O2 Delivery Ventilator CPAP Trial Nasal Cannula Nasal Cannula O2 Flow Rate 5.0 5.0 02/15/20 02/15/20 02/15/20 02/15/20 15:58 16:00 17:00 18:00 Temp 98.8 98.8 Pulse 78 75 85 Resp 16 22 16 B/P (MAP) 135/60 (85) 142/63 (89) 126/61 (82) Pulse Ox 92 94 92 O2 Delivery Nasal Cannula CPAP Trial Nasal Cannula O2 Flow Rate 5.0 5.0 5.0 02/15/20 02/15/20 02/15/20 02/15/20 18:54 19:00 19:20 20:00 Temp 100.0 100.0 Pulse 84 76 Resp 18 14 14 16 B/P (MAP) 124/62 (82) 134/60 (84) Pulse Ox 93 92 92 96 O2 Delivery Nasal Cannula Nasal Cannula Nasal Cannula Nasal Cannula O2 Flow Rate 5.0 5.0 5.0 5.0 02/15/20 02/15/20 02/15/20 02/15/20 20:00 20:00 21:00 22:00 Pulse 76 76 106 Resp 22 16 B/P (MAP) 134/60 (84) 138/70 (92) 138/61 (86) Pulse Ox 92 95 O2 Delivery Nasal Cannula Nasal Cannula Nasal Cannula O2 Flow Rate 5.0 5.0 5.0 02/15/20 02/15/20 02/15/20 02/15/20 22:30 22:45 23:00 23:59 Pulse 88 76 77 79 Resp 16 16 16 B/P (MAP) 128/60 (82) 138/60 (86) 144/61 (88) 138/61 (86) Pulse Ox 92 91 94 O2 Delivery Nasal Cannula Nasal Cannula Nasal Cannula O2 Flow Rate 5.0 5.0 5.0 02/15/20 02/15/20 02/16/20 02/16/20 23:59 23:59 00:26 00:55 Temp 99.4 99.4 Pulse 79 Resp 18 18 B/P (MAP) 138/61 (86) Pulse Ox 95 92 94 O2 Delivery Nasal Cannula Nasal Cannula Nasal Cannula Nasal Cannula O2 Flow Rate 5.0 5.0 5.0 5.0 02/16/20 02/16/20 02/16/20 02/16/20 01:00 02:00 02:15 02:26 Pulse 90 79 90 Resp 16 16 20 20 B/P (MAP) 135/65 (88) 156/62 (93) 157/65 (95) Pulse Ox 96 96 96 96 O2 Delivery Nasal Cannula Nasal Cannula Nasal Cannula Nasal Cannula O2 Flow Rate 5.0 5.0 5.0 5.0 02/16/20 02/16/20 02/16/20 02/16/20 02:30 02:45 02:50 03:00 Pulse 83 84 87 Resp 18 18 18 22 B/P (MAP) 143/60 (87) 146/60 (88) 147/61 (89) Pulse Ox 96 94 94 94 O2 Delivery Nasal Cannula Nasal Cannula Nasal Cannula Nasal Cannula O2 Flow Rate 5.0 5.0 5.0 5.0 02/16/20 02/16/20 02/16/20 02/16/20 03:30 04:00 04:00 04:00 Temp 99.5 99.5 Pulse 97 97 Resp 24 18 18 B/P (MAP) 139/61 (87) 139/61 (87) Pulse Ox 90 93 93 O2 Delivery Nasal Cannula Nasal Cannula Nasal Cannula O2 Flow Rate 5.0 5.0 5.0 02/16/20 02/16/20 02/16/20 02/16/20 04:00 05:00 06:00 06:01 Pulse 99 103 Resp 20 20 20 B/P (MAP) 128/60 (82) 121/60 (80) Pulse Ox 93 90 90 O2 Delivery Nasal Cannula Nasal Cannula Nasal Cannula Nasal Cannula O2 Flow Rate 5.0 5.0 5.0 5.0 02/16/20 02/16/20 02/16/20 02/16/20 06:45 07:00 07:15 07:38 Pulse 123 Resp 22 23 B/P (MAP) 118/63 (81) 94/56 (69) Pulse Ox 88 89 O2 Delivery NonRebreather Mask NonRebreather Mask Non-Rebreather O2 Flow Rate 15.0 15.0 15.0 02/16/20 02/16/20 02/16/20 02/16/20 07:58 08:00 08:00 08:25 Temp 99.2 99.2 Pulse 103 Resp 21 19 B/P (MAP) 116/63 (80) Pulse Ox 90 91 91 O2 Delivery NonRebreather Mask NonRebreather Mask BiPAP/CPAP O2 Flow Rate 15.0 15.0 02/16/20 02/16/20 02/16/20 02/16/20 08:28 09:00 09:00 10:00 Pulse 102 93 Resp 16 18 18 B/P (MAP) 125/64 (84) 124/60 (81) Pulse Ox 90 91 90 92 O2 Delivery BiPAP/CPAP BiPAP/CPAP BiPAP/CPAP Intake and Output 02/15/20 02/15/20 02/16/20 15:00 23:00 07:00 Intake Total 1353 ml 742 ml Output Total 1393 ml 570 ml 512 ml Balance -1393 ml 783 ml 230 ml Justicifation of Admission Dx: Justifications for Admission: Justification of Admission Dx: Yes Acute Hemorrhagic Stroke: Acute Hemorrhagic Stroke TEE FRANCIS MD Feb 16, 2020 10:30
--- NOTE | 2020-02-16 11:08 | EKG ---
[facility] [address] [place] [address] Test Date: 2020-02-14 Test Time: 03:47:32 Pat Name: ELLA MUÑIZ Department: Room: Gender: M Field Reporter: : 1955 Requested By: MARKO MATAMOROS Order Number: [id number] Reading MD: Measurements Intervals [place] Rate: 75 P: -14 AK: 194 QRS: 11 QRSD: 100 T: 13 QT: 370 QTc: 416 Interpretive Statements SINUS RHYTHM NORMAL ECG RI6.02 No previous ECG available for comparison
--- NOTE | 2020-02-16 11:17 | RAD ---
PORTABLE CHEST 1V INDICATION: Reason: Vent ICU#108 / Spl. Instructions: / History: . COMPARISON STUDY: 02/14/2020. FINDINGS: Life Support Devices: Endotracheal and enteric tubes are no longer visualized. Lungs: Normal lung volume. Stable patchy bibasilar opacities. Pleura: Small right pleural effusion. Heart and Mediastinum: Stable cardiomediastinal silhouette and great vessels. IMPRESSION: 1. Stable patchy bibasilar opacities. 2. Small right pleural effusion. 3. Endotracheal and enteric tubes no longer visualized. Electronically signed by: Jai Lunsford MD (02/16/2020 11:14 AM) [id number]
[2020-02-16] MEDS: DEXAMETHASONE SOD PHOS 4 MG/ML VIAL IVP SCH ×2 (11:20→17:58)
[2020-02-16] MEDS: IPRATRPIUM/ALBUTEROL 0.5/2.5MG 3 ML NEBU. NEB SCH ×3 (11:32→19:56)
--- NOTE | 2020-02-16 12:23 | NUR ---
Family had questions about DPOA paperwork that was filed at [facility], request of information was faxed to [facility] requesting DPOA or advanced directives paperwork. Received the fax saying the patient's DPOA was going to be the daughter, but prior to discharge refused to sign any DPOA paperwork saying "he didn't need it". Notified daughter and son.
--- NOTE | 2020-02-16 14:06 | NUR ---
SS following for discharge planning. SS reviewed pt chart and discussed with pt RN. Pt is from home with daughter. Pt is currently on the BIPAP. Pt was extubated on 02/15/2020. Pt on IV Levofloxacin and IV Vancomycin. Per RN, pt has ventriculostomy drain in her head. Pt will need PT/OT when medically stable. SS will continue to follow for discharge planning.
--- NOTE | 2020-02-16 15:18 | NUR ---
Dr. Jones rounded on patient, gave the order to raise the drip chamber to the ventriculostomy drain again, was raised to his preference and marked.
--- NOTE | 2020-02-16 16:49 | PDOC ---
PROGRESS NOTES Date of Service DATE: 02/16/20 TIME: 16:47 Subjective Subjective Patient seen and examined Objective Objective Vital Signs Date Time Temp Pulse Resp B/P (MAP) Pulse Ox O2 Delivery O2 Flow Rate FiO2 02/16/20 16:00 Bi-pap 50.0 02/16/20 16:00 02/16/20 16:00 99.4 78 16 97 99.4 Intake and Output 02/16/20 07:00 Intake Total 2095 ml Output Total 2475 ml Balance -380 ml Intake IV Total 2095 ml Output Urine Total 1735 ml Gastric Drainage Total 450 ml Drainage Total 290 ml Physical Exam Abdomen: Normal bowel sounds Heart: Regular rate General: Other (Sedated) Lungs: Other (Slightly decreased breath sounds) Assessment Assessment Problems Medical Problems: (1) Intraparenchymal hemorrhage of brain Status: Acute 1. Acute intraparenchymal hemorrhage. Is being monitored by both neurosurgery and neurology. A right frontal ventriculostomy has been placed. The patient continues in the ICU. 2. Respiratory failure secondary to #1. Patient has been extubated. He is followed by the pulmonary service. 3. Accelerated hypertension. Severe hypertension on admission. Patient been treated with Cardene with good control. Now off IV Cardene. Blood pressure under better control. Blood pressure range as per neurology. 4. History of hyperlipidemia. Comment Review of Relevant I have reviewed the following items faraz (where applicable) has been applied. Labs Laboratory Tests Test 02/15/20 05:00 02/15/20 07:40 02/15/20 15:05 02/16/20 06:39 White Blood Count 12.4 x10^3/uL (4.0-11.0) Red Blood Count 4.49 x10^6/uL (4.30-5.70) Hemoglobin 13.5 g/dL (13.0-17.5) Hematocrit 39.8 % (39.0-53.0) Mean Corpuscular Volume 89 fL (79-100) Mean Corpuscular Hemoglobin 30 pg (25-35) Mean Corpuscular Hemoglobin Concent 34 g/dL (31-37) Red Cell Distribution Width 13.8 % (11.5-14.5) Platelet Count 202 x10^3/uL (140-400) Neutrophils (%) (Auto) 79 % (31-73) Lymphocytes (%) (Auto) 10 % (24-48) Monocytes (%) (Auto) 10 % (0-9) Eosinophils (%) (Auto) 0 % (0-3) Basophils (%) (Auto) 0 % (0-3) Neutrophils # (Auto) 9.8 x10^3/uL (1.8-7.7) Lymphocytes # (Auto) 1.3 x10^3/uL (1.0-4.8) Monocytes # (Auto) 1.3 x10^3/uL (0.0-1.1) Eosinophils # (Auto) 0.0 x10^3/uL (0.0-0.7) Basophils # (Auto) 0.0 x10^3/uL (0.0-0.2) Sodium Level 139 mmol/L (136-145) Potassium Level 3.7 mmol/L (3.5-5.1) Chloride Level 105 mmol/L (98-107) Carbon Dioxide Level 31 mmol/L (21-32) Anion Gap 3 (6-14) Blood Urea Nitrogen 13 mg/dL (8-26) Creatinine 0.7 mg/dL (0.7-1.3) Estimated GFR (Cockcroft-Gault) 113.5 Glucose Level 145 mg/dL (70-99) Calcium Level 8.0 mg/dL (8.5-10.1) O2 Saturation 98 % (92-99) 98 % (92-99) 90 % (92-99) Arterial Blood pH 7.38 (7.35-7.45) 7.38 (7.35-7.45) 7.45 (7.35-7.45) Arterial Blood pCO2 at Patient Temp 45 mmHg (35-46) 49 mmHg (35-46) 32 mmHg (35-46) Arterial Blood pO2 at Patient Temp 102 mmHg (65-108) 98 mmHg (65-108) 54 mmHg (65-108) Arterial Blood HCO3 26 mmol/L (21-28) 29 mmol/L (21-28) 22 mmol/L (21-28) Arterial Blood Base Excess 1 mmol/L (-3-3) 3 mmol/L (-3-3) -1 mmol/L (-3-3) FiO2 40 40 100 Test 02/16/20 06:49 02/16/20 06:50 Glucose (Fingerstick) 152 mg/dL (70-99) White Blood Count 13.8 x10^3/uL (4.0-11.0) Red Blood Count 4.19 x10^6/uL (4.30-5.70) Hemoglobin 12.7 g/dL (13.0-17.5) Hematocrit 37.3 % (39.0-53.0) Mean Corpuscular Volume 89 fL (79-100) Mean Corpuscular Hemoglobin 30 pg (25-35) Mean Corpuscular Hemoglobin Concent 34 g/dL (31-37) Red Cell Distribution Width 13.7 % (11.5-14.5) Platelet Count 182 x10^3/uL (140-400) Sodium Level 140 mmol/L (136-145) Potassium Level 3.7 mmol/L (3.5-5.1) Chloride Level 107 mmol/L (98-107) Carbon Dioxide Level 24 mmol/L (21-32) Anion Gap 9 (6-14) Blood Urea Nitrogen 18 mg/dL (8-26) Creatinine 0.8 mg/dL (0.7-1.3) Estimated GFR (Cockcroft-Gault) 97.3 Glucose Level 152 mg/dL (70-99) Calcium Level 8.3 mg/dL (8.5-10.1) Laboratory Tests Test 02/16/20 06:39 02/16/20 06:49 02/16/20 06:50 O2 Saturation 90 % (92-99) Arterial Blood pH 7.45 (7.35-7.45) Arterial Blood pCO2 at Patient Temp 32 mmHg (35-46) Arterial Blood pO2 at Patient Temp 54 mmHg (65-108) Arterial Blood HCO3 22 mmol/L (21-28) Arterial Blood Base Excess -1 mmol/L (-3-3) FiO2 100 Glucose (Fingerstick) 152 mg/dL (70-99) White Blood Count 13.8 x10^3/uL (4.0-11.0) Red Blood Count 4.19 x10^6/uL (4.30-5.70) Hemoglobin 12.7 g/dL (13.0-17.5) Hematocrit 37.3 % (39.0-53.0) Mean Corpuscular Volume 89 fL (79-100) Mean Corpuscular Hemoglobin 30 pg (25-35) Mean Corpuscular Hemoglobin Concent 34 g/dL (31-37) Red Cell Distribution Width 13.7 % (11.5-14.5) Platelet Count 182 x10^3/uL (140-400) Sodium Level 140 mmol/L (136-145) Potassium Level 3.7 mmol/L (3.5-5.1) Chloride Level 107 mmol/L (98-107) Carbon Dioxide Level 24 mmol/L (21-32) Anion Gap 9 (6-14) Blood Urea Nitrogen 18 mg/dL (8-26) Creatinine 0.8 mg/dL (0.7-1.3) Estimated GFR (Cockcroft-Gault) 97.3 Glucose Level 152 mg/dL (70-99) Calcium Level 8.3 mg/dL (8.5-10.1) Medications Current Medications Nicardipine HCl 50 mg/Sodium Chloride 250 ml @ 12.5 mls/hr CONT PRN IV SEE I/O RECORD Last administered on 02/16/20at 05:11; Start 02/14/20 at 03:30 Ondansetron HCl (Zofran) 8 mg 1X ONCE IVP Last administered on 02/14/20at 03:48; Start 02/14/20 at 04:00; Stop 02/14/20 at 04:01; Status DC Metoclopramide HCl (Reglan Vial) 10 mg STK-MED ONCE .ROUTE ; Start 02/14/20 at 04:00; Stop 02/14/20 at 04:00; Status DC Diphenhydramine HCl (Benadryl) 50 mg STK-MED ONCE .ROUTE ; Start 02/14/20 at 04:02; Stop 02/14/20 at 04:02; Status DC Hydromorphone HCl (Dilaudid) 2 mg STK-MED ONCE .ROUTE ; Start 02/14/20 at 04:02; Stop 02/14/20 at 04:03; Status DC Lidocaine HCl (Lidocaine 1% 20ml Vial) 20 ml STK-MED ONCE .ROUTE ; Start 02/14/20 at 04:11; Stop 02/14/20 at 04:12; Status DC Ondansetron HCl (Zofran) 4 mg PRN Q8HRS PRN IV NAUSEA/VOMITING 1ST CHOICE; Start 02/14/20 at 04:45; Stop 02/15/20 at 04:44; Status DC Morphine Sulfate (Morphine Sulfate) 4 mg PRN Q2HR PRN IV SEVERE PAIN 7-10; Start 02/14/20 at 04:45; Stop 02/15/20 at 04:44; Status DC Rocuronium [place] (Zemuron) 100 mg 1X ONCE IV Last administered on 02/14/20at 04:56; Start 02/14/20 at 05:00; Stop 02/14/20 at 05:01; Status DC Etomidate (Amidate) 20 mg 1X ONCE IV Last administered on 02/14/20at 04:56; Start 02/14/20 at 05:00; Stop 02/14/20 at 05:01; Status DC Fentanyl Citrate (Fentanyl 2ml Vial) 100 mcg 1X ONCE IVP Last administered on 02/14/20at 04:55; Start 02/14/20 at 05:00; Stop 02/14/20 at 05:01; Status DC Propofol (Diprivan) 200 mg STK-MED ONCE IV ; Start 02/14/20 at 05:02; Stop 02/14/20 at 05:03; Status DC Propofol 50 ml @ As Directed STK-MED ONCE IV ; Start 02/14/20 at 05:03; Stop 02/14/20 at 05:03; Status DC Propofol (Diprivan) 200 mg 1X ONCE IV ; Start 02/14/20 at 05:30; Stop 02/14/20 at 05:31; Status DC Vancomycin HCl 250 ml @ 250 mls/hr PREOP PRN PRN IV PREOP Last administered on 02/14/20at 06:48; Start 02/14/20 at 06:00; Stop 02/15/20 at 05:59; Status DC Propofol 100 ml @ 0 mls/hr CONT PRN IV SEE I/O RECORD Last administered on 02/14/20at 11:30; Start 02/14/20 at 06:30 Fentanyl Citrate (Fentanyl 2ml Vial) 50 mcg 1X ONCE IVP Last administered on 02/14/20at 06:48; Start 02/14/20 at 07:00; Stop 02/14/20 at 07:01; Status DC Lidocaine HCl (Xylocaine-Mpf 1% 2ml Vial) 2 ml STK-MED ONCE .ROUTE ; Start 02/14/20 at 06:43; Stop 02/14/20 at 06:43; Status DC Fentanyl Citrate (Fentanyl 2ml Vial) 50 mcg 1X ONCE IVP Last administered on 02/14/20at 07:23; Start 02/14/20 at 07:30; Stop 02/14/20 at 07:31; Status DC Fentanyl Citrate 30 ml @ 2.5 mls/hr CONT PRN IV SEE PROTOCOL Last administered on 02/15/20at 09:14; Start 02/14/20 at 07:30 Fentanyl Citrate (Fentanyl 2ml Vial) 25 mcg PRN Q1HR PRN IV SEE COMMENTS; Start 02/14/20 at 07:30; Stop 02/15/20 at 18:51; Status DC Fentanyl Citrate (Fentanyl 2ml Vial) 50 mcg PRN Q1HR PRN IV SEE COMMENTS; Start 02/14/20 at 07:30; Stop 02/15/20 at 18:51; Status DC Famotidine (Pepcid Vial) 20 mg BID IVP ; Start 02/14/20 at 21:00; Stop 02/14/20 at 16:18; Status DC Potassium Chloride/Dextrose/ Sod Cl 1,000 ml @ 50 mls/hr Q20H IV Last administered on 02/16/20at 05:10; Start 02/14/20 at 11:30 Pantoprazole Sodium (PROTONIX VIAL for IV PUSH) 40 mg DAILYAC IVP Last administered on 02/16/20at 07:57; Start 02/15/20 at 07:30 Vancomycin HCl 1 gm/Sodium Chloride 250 ml @ 250 mls/hr Q12H IV Last administered on 02/16/20at 16:27; Start 02/15/20 at 17:00 Vancomycin HCl (Vanco Per Pharmacy) 1 each PRN DAILY PRN MC SEE COMMENTS; Start 02/15/20 at 16:15 Fentanyl Citrate (Fentanyl 2ml Vial) 25 mcg Q1HR ONCE IV Last administered on 02/15/20at 18:54; Start 02/15/20 at 19:00; Stop 02/15/20 at 19:01; Status DC Fentanyl Citrate (Fentanyl 2ml Vial) 25 mcg PRN Q1HR PRN IVP SEVERE PAIN 7-10 Last administered on 02/16/20at 15:03; Start 02/15/20 at 22:30 Cefazolin Sodium/ Dextrose (Ancef 2gm Premix) 2 gm STK-MED ONCE IV ; Start 02/14/20 at 07:00; Stop 02/16/20 at 06:46; Status DC Dexamethasone Sodium Phosphate (Decadron) 4 mg Q6HRS IVP Last administered on 02/16/20at 11:20; Start 02/16/20 at 12:00 Dexamethasone Sodium Phosphate (Decadron) 4 mg 1X ONCE IVP Last administered on 02/16/20at 07:57; Start 02/16/20 at 08:00; Stop 02/16/20 at 08:01; Status DC Dexmedetomidine HCl 400 mcg/ Sodium Chloride 100 ml @ 0 mls/hr CONT PRN IV PER PROTOCOL Last administered on 02/16/20at 08:49; Start 02/16/20 at 08:30 Sodium Chloride 500 ml @ 500 mls/hr 1X PRN PRN IV SEE COMMENTS; Start 02/16/20 at 08:30 Atropine Sulfate (ATROPINE 0.5mg SYRINGE) 0.5 mg PRN Q5MIN PRN IV SEE COMMENTS; Start 02/16/20 at 08:30 Levofloxacin/ Dextrose 100 ml @ 100 mls/hr Q24H IV Last administered on 02/16/20at 11:59; Start 02/16/20 at 12:00 Albuterol/ Ipratropium (Duoneb) 3 ml RTQID NEB Last administered on 02/16/20at 15:36; Start 02/16/20 at 12:00 Active Scripts Active Reported Flomax (Tamsulosin Hcl) 0.4 Mg Cap.er.24h 1 Cap PO DAILY Vitals/I & O Vital Sign - Last 24 Hours 02/15/20 02/15/20 02/15/20 02/15/20 17:00 18:00 18:54 19:00 Pulse 75 85 84 Resp 22 16 18 14 B/P (MAP) 142/63 (89) 126/61 (82) 124/62 (82) Pulse Ox 94 92 93 92 O2 Delivery CPAP Trial Nasal Cannula Nasal Cannula Nasal Cannula O2 Flow Rate 5.0 5.0 5.0 5.0 02/15/20 02/15/20 02/15/20 02/15/20 19:20 20:00 20:00 20:00 Temp 100.0 100.0 Pulse 76 76 Resp 14 16 B/P (MAP) 134/60 (84) 134/60 (84) Pulse Ox 92 96 O2 Delivery Nasal Cannula Nasal Cannula Nasal Cannula O2 Flow Rate 5.0 5.0 5.0 02/15/20 02/15/20 02/15/20 02/15/20 21:00 22:00 22:30 22:45 Pulse 76 106 88 76 Resp 22 16 16 16 B/P (MAP) 138/70 (92) 138/61 (86) 128/60 (82) 138/60 (86) Pulse Ox 92 95 92 91 O2 Delivery Nasal Cannula Nasal Cannula Nasal Cannula Nasal Cannula O2 Flow Rate 5.0 5.0 5.0 5.0 02/15/20 02/15/20 02/15/20 02/15/20 23:00 23:59 23:59 23:59 Temp 99.4 99.4 Pulse 77 79 79 Resp 16 18 B/P (MAP) 144/61 (88) 138/61 (86) 138/61 (86) Pulse Ox 94 95 O2 Delivery Nasal Cannula Nasal Cannula Nasal Cannula O2 Flow Rate 5.0 5.0 5.0 02/16/20 02/16/20 02/16/20 02/16/20 00:26 00:55 01:00 02:00 Pulse 90 79 Resp 18 16 16 B/P (MAP) 135/65 (88) 156/62 (93) Pulse Ox 92 94 96 96 O2 Delivery Nasal Cannula Nasal Cannula Nasal Cannula Nasal Cannula O2 Flow Rate 5.0 5.0 5.0 5.0 02/16/20 02/16/20 02/16/20 02/16/20 02:15 02:26 02:30 02:45 Pulse 90 83 84 Resp 20 20 18 18 B/P (MAP) 157/65 (95) 143/60 (87) 146/60 (88) Pulse Ox 96 96 96 94 O2 Delivery Nasal Cannula Nasal Cannula Nasal Cannula Nasal Cannula O2 Flow Rate 5.0 5.0 5.0 5.0 02/16/20 02/16/20 02/16/20 02/16/20 02:50 03:00 03:30 04:00 Pulse 87 Resp 18 22 24 18 B/P (MAP) 147/61 (89) Pulse Ox 94 94 90 93 O2 Delivery Nasal Cannula Nasal Cannula Nasal Cannula Nasal Cannula O2 Flow Rate 5.0 5.0 5.0 5.0 02/16/20 02/16/20 02/16/20 02/16/20 04:00 04:00 04:00 05:00 Temp 99.5 99.5 Pulse 97 97 99 Resp 18 20 B/P (MAP) 139/61 (87) 139/61 (87) 128/60 (82) Pulse Ox 93 93 O2 Delivery Nasal Cannula Nasal Cannula Nasal Cannula O2 Flow Rate 5.0 5.0 5.0 02/16/20 02/16/20 02/16/20 02/16/20 06:00 06:01 06:45 07:00 Pulse 103 123 Resp 20 20 22 23 B/P (MAP) 121/60 (80) 118/63 (81) Pulse Ox 90 90 88 89 O2 Delivery Nasal Cannula Nasal Cannula NonRebreather Mask NonRebreather Mask O2 Flow Rate 5.0 5.0 15.0 15.0 02/16/20 02/16/20 02/16/20 02/16/20 07:15 07:38 07:58 08:00 Temp 99.2 99.2 Pulse 103 Resp 21 19 B/P (MAP) 94/56 (69) 116/63 (80) Pulse Ox 90 91 O2 Delivery Non-Rebreather NonRebreather Mask NonRebreather Mask O2 Flow Rate 15.0 15.0 15.0 02/16/20 02/16/20 02/16/20 02/16/20 08:00 08:25 08:28 09:00 Resp 16 B/P (MAP) Pulse Ox 91 90 91 O2 Delivery BiPAP/CPAP BiPAP/CPAP 02/16/20 02/16/20 02/16/20 02/16/20 09:00 10:00 11:00 11:21 Pulse 102 93 91 Resp 18 18 18 20 B/P (MAP) 125/64 (84) 124/60 (81) 115/75 (88) Pulse Ox 90 92 94 94 O2 Delivery BiPAP/CPAP BiPAP/CPAP BiPAP/CPAP BiPAP/CPAP 02/16/20 02/16/20 02/16/20 02/16/20 11:32 11:36 11:51 12:00 Temp 99.8 99.8 Pulse 96 Resp 18 18 B/P (MAP) 137/67 (90) Pulse Ox 94 95 95 O2 Delivery BiPAP/CPAP Bi-pap BiPAP/CPAP BiPAP/CPAP O2 Flow Rate 55.0 02/16/20 02/16/20 02/16/20 02/16/20 12:00 12:33 13:00 14:00 Pulse 95 88 Resp 16 16 B/P (MAP) 112/62 (79) 117/62 (80) Pulse Ox 96 96 94 O2 Delivery BiPAP/CPAP BiPAP/CPAP BiPAP/CPAP 02/16/20 02/16/20 02/16/20 02/16/20 15:00 15:03 15:33 16:00 Temp 99.4 99.4 Pulse 83 78 Resp 16 16 16 16 B/P (MAP) 112/61 (78) 111/59 (76) Pulse Ox 97 97 97 97 O2 Delivery BiPAP/CPAP BiPAP/CPAP BiPAP/CPAP BiPAP/CPAP 02/16/20 02/16/20 16:00 16:00 B/P (MAP) O2 Delivery Bi-pap O2 Flow Rate 50.0 Intake and Output 02/15/20 02/15/20 02/16/20 15:00 23:00 07:00 Intake Total 1353 ml 742 ml Output Total 1393 ml 570 ml 512 ml Balance -1393 ml 783 ml 230 ml Justifications for Admission Other Justification LINDSEY HILL MD Feb 16, 2020 16:49
--- NOTE | 2020-02-16 20:00 | NUR ---
ICP drain above insertion site repositioned earlier this evening per Dr Jones--zeroed at that position, HOB to remain at 25 degrees elevation and patient not to be turned; CF fluid continues to be serosang. Patient has left radial arterial line for lab draw and continuous close BP monitoring to keep SBP<150. BP will be documented under vital sign intervention hourly and arterial line intervention Q4HRS to avoid double charting. Arterial line running close to NIBP results but is intermittently positional.
[2020-02-17] VITALS (26 sets, daily range): BP systolic 106–160; BP diastolic 58–97
[2020-02-17] MEDS: DEXAMETHASONE SOD PHOS 4 MG/ML VIAL IVP SCH ×4 (00:04→18:12)
[2020-02-17] MEDS: fentaNYL PF VIAL 100 MCG/2 ML VIAL IVP PRN ×8 (02:03→21:03)
[2020-02-17] MEDS: VANCOMYCIN 1 GM in IV NORMAL SALINE 250ML 250 ML IV SCH (04:35)
[2020-02-17] MEDS: POTASSIUM CL 20MEQ D5-0.45NACL 1,000 ML IV SCH (04:37)
[2020-02-17] MEDS: DEXMEDETOMIDINE 400 MCG in IV NORMAL SALINE 100ML 96 ML IV PRN ×3 (06:55→18:15)
--- NOTE | 2020-02-17 08:36 | PDOC ---
Provider Note Date of Service: DATE: 02/17/20 TIME: 08:35 Provider Note Doctor Statement This patient was admitted to [facility] on 02/14/20 with a brain bleed and is temporarily incapacitated, unable to handle his affairs. Justifications for Admission Other Justification TEE FRANCIS MD Feb 17, 2020 08:36
[2020-02-17] MEDS: IPRATRPIUM/ALBUTEROL 0.5/2.5MG 3 ML NEBU. NEB SCH ×4 (08:54→19:49)
[2020-02-17 09:10] LABS: BASE EXCESS ABG -1 mmol/L (-3-3); HCO3 ABG 23 mmol/L (21-28); PCO2 ABG 39 mmHg (35-46); PO2 ABG 94 mmHg (65-108); SAT O2 ABG 97 % (92-99)
[2020-02-17 09:49] LABS: FIO2 ABG 50/BIPAP
--- NOTE | 2020-02-17 10:12 | PDOC ---
PULMONARY PROGRESS NOTES DATE: 02/17/20 TIME: 10:10 Subjective remains on BIPAP, FIO2 decreased to 50% sedated Chest x-ray reviewed increased right lower lobe consolidation S/P ventricular system 02/15/20 Vitals Vital Signs Date Time Temp Pulse Resp B/P (MAP) Pulse Ox O2 Delivery O2 Flow Rate FiO2 02/17/20 08:54 99 BiPAP/CPAP 02/17/20 08:39 18 02/17/20 06:00 64 119/66 (83) 02/17/20 04:00 50.0 02/17/20 04:00 98.6 98.6 Lungs: Crackles Cardiovascular: S1 Abdomen: Soft Skin: Warm Labs Laboratory Tests Test 02/15/20 15:05 02/16/20 06:39 02/16/20 06:49 02/16/20 06:50 O2 Saturation 98 % (92-99) 90 % (92-99) Arterial Blood pH 7.38 (7.35-7.45) 7.45 (7.35-7.45) Arterial Blood pCO2 at Patient Temp 49 mmHg (35-46) 32 mmHg (35-46) Arterial Blood pO2 at Patient Temp 98 mmHg (65-108) 54 mmHg (65-108) Arterial Blood HCO3 29 mmol/L (21-28) 22 mmol/L (21-28) Arterial Blood Base Excess 3 mmol/L (-3-3) -1 mmol/L (-3-3) FiO2 40 100 Glucose (Fingerstick) 152 mg/dL (70-99) White Blood Count 13.8 x10^3/uL (4.0-11.0) Red Blood Count 4.19 x10^6/uL (4.30-5.70) Hemoglobin 12.7 g/dL (13.0-17.5) Hematocrit 37.3 % (39.0-53.0) Mean Corpuscular Volume 89 fL (79-100) Mean Corpuscular Hemoglobin 30 pg (25-35) Mean Corpuscular Hemoglobin Concent 34 g/dL (31-37) Red Cell Distribution Width 13.7 % (11.5-14.5) Platelet Count 182 x10^3/uL (140-400) Sodium Level 140 mmol/L (136-145) Potassium Level 3.7 mmol/L (3.5-5.1) Chloride Level 107 mmol/L (98-107) Carbon Dioxide Level 24 mmol/L (21-32) Anion Gap 9 (6-14) Blood Urea Nitrogen 18 mg/dL (8-26) Creatinine 0.8 mg/dL (0.7-1.3) Estimated GFR (Cockcroft-Gault) 97.3 Glucose Level 152 mg/dL (70-99) Calcium Level 8.3 mg/dL (8.5-10.1) Test 02/17/20 08:00 O2 Saturation 97 % (92-99) Arterial Blood pH 7.39 (7.35-7.45) Arterial Blood pCO2 at Patient Temp 39 mmHg (35-46) Arterial Blood pO2 at Patient Temp 94 mmHg (65-108) Arterial Blood HCO3 23 mmol/L (21-28) Arterial Blood Base Excess -1 mmol/L (-3-3) FiO2 50/bipap Laboratory Tests Test 02/17/20 08:00 O2 Saturation 97 % (92-99) Arterial Blood pH 7.39 (7.35-7.45) Arterial Blood pCO2 at Patient Temp 39 mmHg (35-46) Arterial Blood pO2 at Patient Temp 94 mmHg (65-108) Arterial Blood HCO3 23 mmol/L (21-28) Arterial Blood Base Excess -1 mmol/L (-3-3) FiO2 50/bipap Medications Active Scripts Medications Dose Route/Sig Max Daily Dose Days Date Category Flomax (Tamsulosin Hcl) 0.4 Mg Cap.er.24h 1 Cap PO DAILY 02/14/20 Reported Comments CXR IMPRESSION: 1. Life-support devices as above. 2. Bibasilar heterogeneous opacities, which could represent subsegmental atelectasis, infection, or aspiration. Impression . IMPRESSION: 1. Acute respiratory failure secondary to cerebrovascular accident., Right lower lobe atelectasis, possible aspiration pneumonia 2. Hypertensive crisis. 3. 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 4. Status post ventriculostomy. 5. Intracerebral bleeding. 6. Encephalopathy secondary to above. 7. History of hypertension. 8. History of previous cerebrovascular accident. 9. Tobacco dependent. 10. Abnormal chest x-ray Plan . BiPAP as needed wean FIO2 as tolerated Empiric antibiotic Started on dexamethasone CT chest when stable Follow neurosurgery and neurology recs Cont. aggressive treatment of HTN, off of nicardipine DVT/GI PPX d/w daughter. Pulmonary status depends on neuro improvement Total cumulative critical care time of 30 minutes Spoke with daughter at the bedside ABRAN BARAKAT MD Feb 17, 2020 10:12
--- NOTE | 2020-02-17 11:23 | PDOC ---
[facility] PROGRESS NOTE Date of Service DOS: DATE: 02/17/20 TIME: 11:19 Chief Complaint Chief Complaint Intraparenchymal hemorrhage of brain Acute intraparenchymal hematoma centered within the right thalamus with a volume of approximately 14 cc. Intraventricular extension of hemorrhage filling much of the right lateral ventricle and extending downwards through the fourth ventricle.hematoma and associated edema exert mass effect on the foramen of Prieto and a portion of the third ventricle. dilatation of the right lateral ventricle temporal horn developing hydrocephalus. 02/13 ctRight frontal approach ventriculostomy . Stable ventricular configuration. Stable right basal ganglia acute intraparenchymal hemorrhage with intraventricular extension. Mass effect with sulcal effacement and increased suprasellar cistern effacement. Acute hypoxic resp failure Prior old stroke Hyperlipidemia Tobacco use History of Present Illness History of Present Illness 02/17/2020 Patient seen and examined in the ICU He is on BiPAP His daughter is present Discussed with RN Discussed with case management Chart reviewed Vitals/I&O Vitals/I&O: Vital Signs Date Time Temp Pulse Resp B/P (MAP) Pulse Ox O2 Delivery O2 Flow Rate FiO2 02/17/20 08:54 99 BiPAP/CPAP 02/17/20 08:39 18 02/17/20 06:00 64 119/66 (83) 02/17/20 04:00 50.0 02/17/20 04:00 98.6 98.6 I & O 02/16/20 02/16/20 02/17/20 15:00 23:00 07:00 Intake Total 100 ml 935 ml 1312 ml Output Total 585 ml 909 ml 356 ml Balance -485 ml 26 ml 956 ml Physical Exam General: Other (Sedated) Heart: Regular rate Lungs: Crackles Abdomen: Normal bowel sounds Extremities: No cyanosis Labs Labs: Laboratory Tests Test 02/17/20 08:00 O2 Saturation 97 % (92-99) Arterial Blood pH 7.39 (7.35-7.45) Arterial Blood pCO2 at Patient Temp 39 mmHg (35-46) Arterial Blood pO2 at Patient Temp 94 mmHg (65-108) Arterial Blood HCO3 23 mmol/L (21-28) Arterial Blood Base Excess -1 mmol/L (-3-3) FiO2 50/bipap Assessment and Plan Assessmemt and Plan Problems Medical Problems: (1) Intraparenchymal hemorrhage of brain Status: Acute Intraparenchymal hemorrhage of brain Acute intraparenchymal hematoma centered within the right thalamus with a volume of approximately 14 cc. Intraventricular extension of hemorrhage filling much of the right lateral ventricle and extending downwards through the fourth ventricle.hematoma and associated edema exert mass effect on the foramen of Prieto and a portion of the third ventricle. dilatation of the right lateral ventricle temporal horn developing hydrocephalus. 02/13 ctRight frontal approach ventriculostomy . Stable ventricular configuration. Stable right basal ganglia acute intraparenchymal hemorrhage with intraventricular extension. Mass effect with sulcal effacement and increased suprasellar cistern effacement. Acute hypoxic resp failure Prior old stroke Hyperlipidemia Tobacco use Hypertensive crisis Status post ventriculostomy Abnormal chest x-ray Plan ICU monitoring Trying to wean off BiPAP Wound prison meds when possible DVT prophylaxis Full code Discussed with RN and his daughter IV dexamethasone Long-term prognosis guarded Comment Review of Relevant I have reviewed the following items faraz (where applicable) has been applied. Medications: Current Medications Medications (Trade) Dose Ordered Sig/Fabricio Route PRN Reason Start Time Stop Time Status Last Admin Dose Admin Dexamethasone Sodium Phosphate (Decadron) 4 mg Q6HRS IVP 02/16/20 12:00 02/17/20 06:01 Levofloxacin/ Dextrose 100 ml @ 100 mls/hr Q24H IV 02/16/20 12:00 02/16/20 11:59 Albuterol/ Ipratropium (Duoneb) 3 ml RTQID NEB 02/16/20 12:00 02/17/20 08:54 Justifications for Admission Other Justification ELENI PICKARD III DO Feb 17, 2020 11:22
--- NOTE | 2020-02-17 11:24 | NUR ---
SS following up with discharge planning. SS reviewed pt chart and discussed with pt RN. Pt on BIPAP. Ventriculostomy drain remains in head. Pt having CT today. Pt on IV Levofloxacin. SS will continue to follow for discharge planning.
[2020-02-17 11:29] LABS: BASO % 0 % (0-3); EOS % 0 % (0-3); HEMATOCRIT 34.2 % (39.0-53.0); HEMOGLOBIN 11.5 g/dL (13.0-17.5); LYMPH # 0.7 x10^3/uL (1.0-4.8); LYMPH % 7 % (24-48); MEAN CORPUSCULAR HEMOGLOBIN 30 pg (25-35); MEAN CORPUSCULAR HGB CONC 34 g/dL (31-37); MEAN CORPUSCULAR VOLUME 90 fL (79-100); MONO # 0.6 x10^3/uL (0.0-1.1); MONO % 6 % (0-9); NEUT # 8.9 x10^3/uL (1.8-7.7); NEUT % 87 % (31-73); PLATELET COUNT 172 x10^3/uL (140-400); RED CELL DISTRIBUTION WIDTH 13.6 % (11.5-14.5); WHITE BLOOD COUNT 10.2 x10^3/uL (4.0-11.0)
[2020-02-17 11:37] LABS: CALCIUM 6.2 mg/dL (8.5-10.1); CREATININE 0.7 mg/dL (0.7-1.3); GFR 113.5; POTASSIUM 3.2 mmol/L (3.5-5.1)
--- NOTE | 2020-02-17 11:59 | PDOC ---
PROGRESS NOTES Date of Service DATE: 02/17/20 TIME: 11:57 Assessment Problems Medical Problems: (1) Intraparenchymal hemorrhage of brain Status: Acute Right thalamic hemorrhage with intraventricular rupture. He developed acute hydrocephalus and required an emergent EVD Acute respiratory failure, extubated. Dense left hemiparesis. Not stable to move to head CT for reassessment Plan Monitor in intensive care unit. No need for prophylactic anticonvulsants Agree with as-needed sedation as per neurosurgery Discussed with daughter, I printed out a statement so that they can get temporary power of claims attorney Subjective None Objective Vital Signs Date Time Temp Pulse Resp B/P (MAP) Pulse Ox O2 Delivery O2 Flow Rate FiO2 02/17/20 08:54 99 BiPAP/CPAP 02/17/20 08:39 18 02/17/20 06:00 64 119/66 (83) 02/17/20 04:00 50.0 02/17/20 04:00 98.6 98.6 Intake and Output 02/17/20 07:00 Intake Total 2347 ml Output Total 1850 ml Balance 497 ml Intake IV Total 2347 ml Output Urine Total 1708 ml Drainage Total 142 ml PHYSICAL EXAM Lethargic, moves right side to commands. PERRL. EOMI. CN: no focal findings. Muscle tone:normal in left arm, increased in left leg Muscle strength: Left hemiparesis DTR: 2+ Plantar reflex: extensor on the left Gait: not examined in bed. Sensory exam: no abnormal findings. No cerebellar signs elicited. Review of Relevant I have reviewed the following items faraz (where applicable) has been applied. Labs Laboratory Tests Test 02/15/20 15:05 02/16/20 06:39 02/16/20 06:49 02/16/20 06:50 O2 Saturation 98 % (92-99) 90 % (92-99) Arterial Blood pH 7.38 (7.35-7.45) 7.45 (7.35-7.45) Arterial Blood pCO2 at Patient Temp 49 mmHg (35-46) 32 mmHg (35-46) Arterial Blood pO2 at Patient Temp 98 mmHg (65-108) 54 mmHg (65-108) Arterial Blood HCO3 29 mmol/L (21-28) 22 mmol/L (21-28) Arterial Blood Base Excess 3 mmol/L (-3-3) -1 mmol/L (-3-3) FiO2 40 100 Glucose (Fingerstick) 152 mg/dL (70-99) White Blood Count 13.8 x10^3/uL (4.0-11.0) Red Blood Count 4.19 x10^6/uL (4.30-5.70) Hemoglobin 12.7 g/dL (13.0-17.5) Hematocrit 37.3 % (39.0-53.0) Mean Corpuscular Volume 89 fL (79-100) Mean Corpuscular Hemoglobin 30 pg (25-35) Mean Corpuscular Hemoglobin Concent 34 g/dL (31-37) Red Cell Distribution Width 13.7 % (11.5-14.5) Platelet Count 182 x10^3/uL (140-400) Sodium Level 140 mmol/L (136-145) Potassium Level 3.7 mmol/L (3.5-5.1) Chloride Level 107 mmol/L (98-107) Carbon Dioxide Level 24 mmol/L (21-32) Anion Gap 9 (6-14) Blood Urea Nitrogen 18 mg/dL (8-26) Creatinine 0.8 mg/dL (0.7-1.3) Estimated GFR (Cockcroft-Gault) 97.3 Glucose Level 152 mg/dL (70-99) Calcium Level 8.3 mg/dL (8.5-10.1) Test 02/17/20 08:00 02/17/20 11:10 O2 Saturation 97 % (92-99) Arterial Blood pH 7.39 (7.35-7.45) Arterial Blood pCO2 at Patient Temp 39 mmHg (35-46) Arterial Blood pO2 at Patient Temp 94 mmHg (65-108) Arterial Blood HCO3 23 mmol/L (21-28) Arterial Blood Base Excess -1 mmol/L (-3-3) FiO2 50/bipap White Blood Count 10.2 x10^3/uL (4.0-11.0) Red Blood Count 3.80 x10^6/uL (4.30-5.70) Hemoglobin 11.5 g/dL (13.0-17.5) Hematocrit 34.2 % (39.0-53.0) Mean Corpuscular Volume 90 fL (79-100) Mean Corpuscular Hemoglobin 30 pg (25-35) Mean Corpuscular Hemoglobin Concent 34 g/dL (31-37) Red Cell Distribution Width 13.6 % (11.5-14.5) Platelet Count 172 x10^3/uL (140-400) Neutrophils (%) (Auto) 87 % (31-73) Lymphocytes (%) (Auto) 7 % (24-48) Monocytes (%) (Auto) 6 % (0-9) Eosinophils (%) (Auto) 0 % (0-3) Basophils (%) (Auto) 0 % (0-3) Neutrophils # (Auto) 8.9 x10^3/uL (1.8-7.7) Lymphocytes # (Auto) 0.7 x10^3/uL (1.0-4.8) Monocytes # (Auto) 0.6 x10^3/uL (0.0-1.1) Eosinophils # (Auto) 0.0 x10^3/uL (0.0-0.7) Basophils # (Auto) 0.0 x10^3/uL (0.0-0.2) Sodium Level 146 mmol/L (136-145) Potassium Level 3.2 mmol/L (3.5-5.1) Chloride Level 115 mmol/L (98-107) Carbon Dioxide Level 23 mmol/L (21-32) Anion Gap 8 (6-14) Blood Urea Nitrogen 28 mg/dL (8-26) Creatinine 0.7 mg/dL (0.7-1.3) Estimated GFR (Cockcroft-Gault) 113.5 Glucose Level 146 mg/dL (70-99) Calcium Level 6.2 mg/dL (8.5-10.1) Laboratory Tests Test 02/17/20 08:00 02/17/20 11:10 O2 Saturation 97 % (92-99) Arterial Blood pH 7.39 (7.35-7.45) Arterial Blood pCO2 at Patient Temp 39 mmHg (35-46) Arterial Blood pO2 at Patient Temp 94 mmHg (65-108) Arterial Blood HCO3 23 mmol/L (21-28) Arterial Blood Base Excess -1 mmol/L (-3-3) FiO2 50/bipap White Blood Count 10.2 x10^3/uL (4.0-11.0) Red Blood Count 3.80 x10^6/uL (4.30-5.70) Hemoglobin 11.5 g/dL (13.0-17.5) Hematocrit 34.2 % (39.0-53.0) Mean Corpuscular Volume 90 fL (79-100) Mean Corpuscular Hemoglobin 30 pg (25-35) Mean Corpuscular Hemoglobin Concent 34 g/dL (31-37) Red Cell Distribution Width 13.6 % (11.5-14.5) Platelet Count 172 x10^3/uL (140-400) Neutrophils (%) (Auto) 87 % (31-73) Lymphocytes (%) (Auto) 7 % (24-48) Monocytes (%) (Auto) 6 % (0-9) Eosinophils (%) (Auto) 0 % (0-3) Basophils (%) (Auto) 0 % (0-3) Neutrophils # (Auto) 8.9 x10^3/uL (1.8-7.7) Lymphocytes # (Auto) 0.7 x10^3/uL (1.0-4.8) Monocytes # (Auto) 0.6 x10^3/uL (0.0-1.1) Eosinophils # (Auto) 0.0 x10^3/uL (0.0-0.7) Basophils # (Auto) 0.0 x10^3/uL (0.0-0.2) Sodium Level 146 mmol/L (136-145) Potassium Level 3.2 mmol/L (3.5-5.1) Chloride Level 115 mmol/L (98-107) Carbon Dioxide Level 23 mmol/L (21-32) Anion Gap 8 (6-14) Blood Urea Nitrogen 28 mg/dL (8-26) Creatinine 0.7 mg/dL (0.7-1.3) Estimated GFR (Cockcroft-Gault) 113.5 Glucose Level 146 mg/dL (70-99) Calcium Level 6.2 mg/dL (8.5-10.1) Medications Current Medications Nicardipine HCl 50 mg/Sodium Chloride 250 ml @ 12.5 mls/hr CONT PRN IV SEE I/O RECORD Last administered on 02/16/20at 05:11; Start 02/14/20 at 03:30 Ondansetron HCl (Zofran) 8 mg 1X ONCE IVP Last administered on 02/14/20at 03:48; Start 02/14/20 at 04:00; Stop 02/14/20 at 04:01; Status DC Metoclopramide HCl (Reglan Vial) 10 mg STK-MED ONCE .ROUTE ; Start 02/14/20 at 04:00; Stop 02/14/20 at 04:00; Status DC Diphenhydramine HCl (Benadryl) 50 mg STK-MED ONCE .ROUTE ; Start 02/14/20 at 04:02; Stop 02/14/20 at 04:02; Status DC Hydromorphone HCl (Dilaudid) 2 mg STK-MED ONCE .ROUTE ; Start 02/14/20 at 04:02; Stop 02/14/20 at 04:03; Status DC Lidocaine HCl (Lidocaine 1% 20ml Vial) 20 ml STK-MED ONCE .ROUTE ; Start 02/14/20 at 04:11; Stop 02/14/20 at 04:12; Status DC Ondansetron HCl (Zofran) 4 mg PRN Q8HRS PRN IV NAUSEA/VOMITING 1ST CHOICE; Start 02/14/20 at 04:45; Stop 02/15/20 at 04:44; Status DC Morphine Sulfate (Morphine Sulfate) 4 mg PRN Q2HR PRN IV SEVERE PAIN 7-10; Start 02/14/20 at 04:45; Stop 02/15/20 at 04:44; Status DC Rocuronium Rosebud (Zemuron) 100 mg 1X ONCE IV Last administered on 02/14/20at 04:56; Start 02/14/20 at 05:00; Stop 02/14/20 at 05:01; Status DC Etomidate (Amidate) 20 mg 1X ONCE IV Last administered on 02/14/20at 04:56; Start 02/14/20 at 05:00; Stop 02/14/20 at 05:01; Status DC Fentanyl Citrate (Fentanyl 2ml Vial) 100 mcg 1X ONCE IVP Last administered on 02/14/20at 04:55; Start 02/14/20 at 05:00; Stop 02/14/20 at 05:01; Status DC Propofol (Diprivan) 200 mg STK-MED ONCE IV ; Start 02/14/20 at 05:02; Stop 02/14/20 at 05:03; Status DC Propofol 50 ml @ As Directed STK-MED ONCE IV ; Start 02/14/20 at 05:03; Stop 02/14/20 at 05:03; Status DC Propofol (Diprivan) 200 mg 1X ONCE IV ; Start 02/14/20 at 05:30; Stop 02/14/20 at 05:31; Status DC Vancomycin HCl 250 ml @ 250 mls/hr PREOP PRN PRN IV PREOP Last administered on 02/14/20at 06:48; Start 02/14/20 at 06:00; Stop 02/15/20 at 05:59; Status DC Propofol 100 ml @ 0 mls/hr CONT PRN IV SEE I/O RECORD Last administered on 02/14/20at 11:30; Start 02/14/20 at 06:30 Fentanyl Citrate (Fentanyl 2ml Vial) 50 mcg 1X ONCE IVP Last administered on 02/14/20at 06:48; Start 02/14/20 at 07:00; Stop 02/14/20 at 07:01; Status DC Lidocaine HCl (Xylocaine-Mpf 1% 2ml Vial) 2 ml STK-MED ONCE .ROUTE ; Start 02/14/20 at 06:43; Stop 02/14/20 at 06:43; Status DC Fentanyl Citrate (Fentanyl 2ml Vial) 50 mcg 1X ONCE IVP Last administered on 02/14/20at 07:23; Start 02/14/20 at 07:30; Stop 02/14/20 at 07:31; Status DC Fentanyl Citrate 30 ml @ 2.5 mls/hr CONT PRN IV SEE PROTOCOL Last administered on 02/15/20at 09:14; Start 02/14/20 at 07:30 Fentanyl Citrate (Fentanyl 2ml Vial) 25 mcg PRN Q1HR PRN IV SEE COMMENTS; Start 02/14/20 at 07:30; Stop 02/15/20 at 18:51; Status DC Fentanyl Citrate (Fentanyl 2ml Vial) 50 mcg PRN Q1HR PRN IV SEE COMMENTS; Start 02/14/20 at 07:30; Stop 02/15/20 at 18:51; Status DC Famotidine (Pepcid Vial) 20 mg BID IVP ; Start 02/14/20 at 21:00; Stop 02/14/20 at 16:18; Status DC Potassium Chloride/Dextrose/ Sod Cl 1,000 ml @ 50 mls/hr Q20H IV Last administered on 02/17/20at 04:37; Start 02/14/20 at 11:30 Pantoprazole Sodium (PROTONIX VIAL for IV PUSH) 40 mg DAILYAC IVP Last administered on 02/16/20at 07:57; Start 02/15/20 at 07:30 Vancomycin HCl 1 gm/Sodium Chloride 250 ml @ 250 mls/hr Q12H IV Last administered on 02/17/20at 04:35; Start 02/15/20 at 17:00; Stop 02/17/20 at 07:34; Status DC Vancomycin HCl (Vanco Per Pharmacy) 1 each PRN DAILY PRN MC SEE COMMENTS; Start 02/15/20 at 16:15; Stop 02/17/20 at 07:35; Status DC Fentanyl Citrate (Fentanyl 2ml Vial) 25 mcg Q1HR ONCE IV Last administered on 02/15/20at 18:54; Start 02/15/20 at 19:00; Stop 02/15/20 at 19:01; Status DC Fentanyl Citrate (Fentanyl 2ml Vial) 25 mcg PRN Q1HR PRN IVP SEVERE PAIN 7-10 Last administered on 02/17/20at 08:39; Start 02/15/20 at 22:30 Cefazolin Sodium/ Dextrose (Ancef 2gm Premix) 2 gm STK-MED ONCE IV ; Start 02/14/20 at 07:00; Stop 02/16/20 at 06:46; Status DC Dexamethasone Sodium Phosphate (Decadron) 4 mg Q6HRS IVP Last administered on 02/17/20at 06:01; Start 02/16/20 at 12:00 Dexamethasone Sodium Phosphate (Decadron) 4 mg 1X ONCE IVP Last administered on 02/16/20at 07:57; Start 02/16/20 at 08:00; Stop 02/16/20 at 08:01; Status DC Dexmedetomidine HCl 400 mcg/ Sodium Chloride 100 ml @ 0 mls/hr CONT PRN IV PER PROTOCOL Last administered on 02/17/20at 06:55; Start 02/16/20 at 08:30 Sodium Chloride 500 ml @ 500 mls/hr 1X PRN PRN IV SEE COMMENTS; Start 02/16/20 at 08:30 Atropine Sulfate (ATROPINE 0.5mg SYRINGE) 0.5 mg PRN Q5MIN PRN IV SEE COMMENTS; Start 02/16/20 at 08:30 Levofloxacin/ Dextrose 100 ml @ 100 mls/hr Q24H IV Last administered on 02/16/20at 11:59; Start 02/16/20 at 12:00 Albuterol/ Ipratropium (Duoneb) 3 ml RTQID NEB Last administered on 02/17/20at 08:54; Start 02/16/20 at 12:00 Active Scripts Active Reported Flomax (Tamsulosin Hcl) 0.4 Mg Cap.er.24h 1 Cap PO DAILY Vitals/I & O Vital Sign - Last 24 Hours 02/16/20 02/16/20 02/16/20 02/16/20 12:00 12:00 12:33 13:00 Temp 99.8 99.8 Pulse 96 95 Resp 18 16 B/P (MAP) 137/67 (90) 112/62 (79) Pulse Ox 95 96 96 O2 Delivery BiPAP/CPAP BiPAP/CPAP BiPAP/CPAP 02/16/20 02/16/20 02/16/20 02/16/20 13:30 14:00 15:00 15:03 Pulse 88 83 Resp 16 16 16 B/P (MAP) 117/62 (80) 112/61 (78) Pulse Ox 97 94 97 97 O2 Delivery BiPAP/CPAP BiPAP/CPAP BiPAP/CPAP BiPAP/CPAP 02/16/20 02/16/20 02/16/20 02/16/20 15:33 16:00 16:00 16:00 Temp 99.4 99.4 Pulse 78 Resp 16 16 B/P (MAP) 111/59 (76) Pulse Ox 97 97 O2 Delivery BiPAP/CPAP BiPAP/CPAP Bi-pap O2 Flow Rate 50.0 02/16/20 02/16/20 02/16/20 02/16/20 16:45 17:00 18:00 19:00 Pulse 78 74 78 Resp 16 16 16 B/P (MAP) 117/59 (78) 113/57 (75) 116/60 (78) Pulse Ox 95 97 97 97 O2 Delivery BiPAP/CPAP BiPAP/CPAP BiPAP/CPAP BiPAP/CPAP 02/16/20 02/16/20 02/16/20 02/16/20 19:56 19:56 20:00 20:00 Temp 99.1 99.1 Pulse 79 79 Resp 20 20 B/P (MAP) 114/60 (78) 114/60 (78) Pulse Ox 94 94 97 O2 Delivery BiPAP/CPAP BiPAP/CPAP O2 Flow Rate 50.0 02/16/20 02/16/20 02/16/20 02/16/20 20:00 20:00 20:25 21:00 Pulse 70 Resp 18 18 B/P (MAP) 118/78 (91) 109/59 (76) Pulse Ox 97 97 O2 Delivery Bi-pap BiPAP/CPAP O2 Flow Rate 50.0 50.0 02/16/20 02/16/20 02/16/20 02/16/20 22:00 23:00 23:26 23:55 Pulse 68 72 Resp 18 20 24 20 B/P (MAP) 111/62 (78) 135/70 (91) Pulse Ox 98 99 50 98 O2 Delivery BiPAP/CPAP BiPAP/CPAP BiPAP/CPAP BiPAP/CPAP 02/16/20 02/16/20 02/17/20 02/17/20 23:59 23:59 00:20 00:40 Temp 98.6 98.6 Pulse 67 67 Resp 20 B/P (MAP) 112/60 (77) 112/60 (77) Pulse Ox 98 98 O2 Delivery BiPAP/CPAP BiPAP/CPAP Bi-pap O2 Flow Rate 50.0 02/17/20 02/17/20 02/17/20 02/17/20 01:00 02:00 02:03 02:30 Pulse 66 77 Resp 18 22 22 20 B/P (MAP) 109/73 (85) 143/73 (96) Pulse Ox 97 97 98 O2 Delivery BiPAP/CPAP BiPAP/CPAP Nasal Cannula BiPAP/CPAP 02/17/20 02/17/20 02/17/20 02/17/20 03:00 03:00 03:30 03:58 Pulse 84 Resp 22 22 20 B/P (MAP) 148/80 (102) Pulse Ox 97 97 98 97 O2 Delivery BiPAP/CPAP BiPAP/CPAP BiPAP/CPAP BiPAP/CPAP 02/17/20 02/17/20 02/17/20 02/17/20 04:00 04:00 04:00 05:00 Temp 98.6 98.6 Pulse 62 62 62 Resp 20 22 B/P (MAP) 107/59 (75) 107/59 (75) 109/70 (83) Pulse Ox 98 98 O2 Delivery BiPAP/CPAP Bi-pap BiPAP/CPAP O2 Flow Rate 50.0 02/17/20 02/17/20 02/17/20 02/17/20 06:00 06:01 06:30 08:39 Pulse 64 Resp 22 22 18 18 B/P (MAP) 119/66 (83) Pulse Ox 97 97 98 40 O2 Delivery BiPAP/CPAP BiPAP/CPAP BiPAP/CPAP BiPAP/CPAP 02/17/20 08:54 Pulse Ox 99 O2 Delivery BiPAP/CPAP Intake and Output 02/16/20 02/16/20 02/17/20 15:00 23:00 07:00 Intake Total 100 ml 935 ml 1312 ml Output Total 585 ml 909 ml 356 ml Balance -485 ml 26 ml 956 ml Justicifation of Admission Dx: Justifications for Admission: Justification of Admission Dx: Yes Acute Hemorrhagic Stroke: Acute Hemorrhagic Stroke TEE FRANCIS MD Feb 17, 2020 11:58
[2020-02-17 12:04] LABS: % BANDS 4 % (0-9); % LYMPHS 8 % (24-48); % MONOS 4 % (0-10); % SEGS 84 % (35-66); PLT ESTIMATE ADEQUATE (ADEQUATE)
[2020-02-17] MEDS: PANTOPRAZOLE IV PUSH 40 MG VIAL. IVP SCH (12:11)
--- NOTE | 2020-02-17 14:10 | PDOC ---
CARDIO Progress Notes Date and Time Date of Service 02/17/2020 Time of Evaluation 0940 Subjective Subjective: Other (sedated) Vitals Vitals Vital Signs Date Time Temp Pulse Resp B/P (MAP) Pulse Ox O2 Delivery O2 Flow Rate FiO2 02/17/20 12:45 99 BiPAP/CPAP 02/17/20 09:09 50.0 02/17/20 08:39 18 02/17/20 06:00 64 119/66 (83) 02/17/20 04:00 98.6 98.6 Weight Weight [ ] Input and Output Intake and Output Intake and Output 02/17/20 07:00 Intake Total 2347 ml Output Total 1850 ml Balance 497 ml Intake IV Total 2347 ml Output Urine Total 1708 ml Drainage Total 142 ml Laboratory Labs Laboratory Tests Test 02/17/20 08:00 02/17/20 11:10 O2 Saturation 97 % (92-99) Arterial Blood pH 7.39 (7.35-7.45) Arterial Blood pCO2 at Patient Temp 39 mmHg (35-46) Arterial Blood pO2 at Patient Temp 94 mmHg (65-108) Arterial Blood HCO3 23 mmol/L (21-28) Arterial Blood Base Excess -1 mmol/L (-3-3) FiO2 50/bipap White Blood Count 10.2 x10^3/uL (4.0-11.0) Red Blood Count 3.80 x10^6/uL (4.30-5.70) Hemoglobin 11.5 g/dL (13.0-17.5) Hematocrit 34.2 % (39.0-53.0) Mean Corpuscular Volume 90 fL (79-100) Mean Corpuscular Hemoglobin 30 pg (25-35) Mean Corpuscular Hemoglobin Concent 34 g/dL (31-37) Red Cell Distribution Width 13.6 % (11.5-14.5) Platelet Count 172 x10^3/uL (140-400) Neutrophils (%) (Auto) 87 % (31-73) Lymphocytes (%) (Auto) 7 % (24-48) Monocytes (%) (Auto) 6 % (0-9) Eosinophils (%) (Auto) 0 % (0-3) Basophils (%) (Auto) 0 % (0-3) Neutrophils # (Auto) 8.9 x10^3/uL (1.8-7.7) Lymphocytes # (Auto) 0.7 x10^3/uL (1.0-4.8) Monocytes # (Auto) 0.6 x10^3/uL (0.0-1.1) Eosinophils # (Auto) 0.0 x10^3/uL (0.0-0.7) Basophils # (Auto) 0.0 x10^3/uL (0.0-0.2) Segmented Neutrophils % 84 % (35-66) Band Neutrophils % 4 % (0-9) Lymphocytes % 8 % (24-48) Monocytes % 4 % (0-10) Platelet Estimate Adequate (ADEQUATE) Sodium Level 146 mmol/L (136-145) Potassium Level 3.2 mmol/L (3.5-5.1) Chloride Level 115 mmol/L (98-107) Carbon Dioxide Level 23 mmol/L (21-32) Anion Gap 8 (6-14) Blood Urea Nitrogen 28 mg/dL (8-26) Creatinine 0.7 mg/dL (0.7-1.3) Estimated GFR (Cockcroft-Gault) 113.5 Glucose Level 146 mg/dL (70-99) Calcium Level 6.2 mg/dL (8.5-10.1) Physical Exam Chest: Symmetric LUNGS: Other (bipap in place) Heart: RRR (SRSR) Abdomen: Soft N/T Neurology: other (sedated) Assessment Assessment 1. Acute intraparenchymal hemorrhage with right thalamic hemorrhage with intraventricular rupture: S/P emergent EVD 2. Acute respiratory failure: extubated, currently on bipap, pulmonary following 3. Accelerated hypertension: off cardene, currently on precedex. BP is well regulated, controlled 4. HLP 5. Possible aspiration Recommendations 1. No significant rhythm ectopies, BP is well controlled and on precedex 2. Continue treatment per neurology and neurosurgery. Will defer BP parameter to them. 2. Nothing further cardiac marquez, will follow along peripherally. Justicifation of Admission Dx: Justifications for Admission: Justification of Admission Dx: Yes Acute Hemorrhagic Stroke: Acute Hemorrhagic Stroke DONNY TOPETE APRN Feb 17, 2020 14:10
--- NOTE | 2020-02-17 16:55 | NUR ---
1300 Tolerating BiPap w/o desaturation. NO adjustments needed after [employer] in. Dr Robert darden repeat rise above ventriculoscopy insertion site.Periods of restlessness w med bolus as tolerated/effective w pain med per order also beneficial. Last precedex dropped heart rate w/o other hemodynamic affects
--- NOTE | 2020-02-17 17:42 | PDOC ---
PROGRESS NOTES Date of Service DATE: 02/17/20 TIME: 17:37 Subjective Subjective seen at 1230 resting quietly, calm on Low dose precedex gtt awakens to voice follows commands briskly on the right left hemiparesis pupils react ICP < 10 EVD draining 1-4 cc/ hour, dressing intact labs noted Bipap per pulmonary will elevate drip chamber as tolerated SCDs D/W RN and daughter Objective Objective Vital Signs Date Time Temp Pulse Resp B/P (MAP) Pulse Ox O2 Delivery O2 Flow Rate FiO2 02/17/20 17:12 99 BiPAP/CPAP 02/17/20 17:02 50 106/97 (100) 02/17/20 16:00 50.0 02/17/20 16:00 18 02/17/20 12:00 98.0 98.0 Intake and Output 02/17/20 07:00 Intake Total 2347 ml Output Total 1877 ml Balance 470 ml Intake Oral 0 ml IV Total 2347 ml Output Urine Total 1733 ml Drainage Total 144 ml Assessment Assessment Problems Medical Problems: (1) Intraparenchymal hemorrhage of brain Status: Acute Comment Review of Relevant I have reviewed the following items faraz (where applicable) has been applied. Labs Laboratory Tests Test 02/16/20 06:39 02/16/20 06:49 02/16/20 06:50 02/17/20 08:00 O2 Saturation 90 % (92-99) 97 % (92-99) Arterial Blood pH 7.45 (7.35-7.45) 7.39 (7.35-7.45) Arterial Blood pCO2 at Patient Temp 32 mmHg (35-46) 39 mmHg (35-46) Arterial Blood pO2 at Patient Temp 54 mmHg (65-108) 94 mmHg (65-108) Arterial Blood HCO3 22 mmol/L (21-28) 23 mmol/L (21-28) Arterial Blood Base Excess -1 mmol/L (-3-3) -1 mmol/L (-3-3) FiO2 100 50/bipap Glucose (Fingerstick) 152 mg/dL (70-99) White Blood Count 13.8 x10^3/uL (4.0-11.0) Red Blood Count 4.19 x10^6/uL (4.30-5.70) Hemoglobin 12.7 g/dL (13.0-17.5) Hematocrit 37.3 % (39.0-53.0) Mean Corpuscular Volume 89 fL (79-100) Mean Corpuscular Hemoglobin 30 pg (25-35) Mean Corpuscular Hemoglobin Concent 34 g/dL (31-37) Red Cell Distribution Width 13.7 % (11.5-14.5) Platelet Count 182 x10^3/uL (140-400) Sodium Level 140 mmol/L (136-145) Potassium Level 3.7 mmol/L (3.5-5.1) Chloride Level 107 mmol/L (98-107) Carbon Dioxide Level 24 mmol/L (21-32) Anion Gap 9 (6-14) Blood Urea Nitrogen 18 mg/dL (8-26) Creatinine 0.8 mg/dL (0.7-1.3) Estimated GFR (Cockcroft-Gault) 97.3 Glucose Level 152 mg/dL (70-99) Calcium Level 8.3 mg/dL (8.5-10.1) Test 02/17/20 11:10 White Blood Count 10.2 x10^3/uL (4.0-11.0) Red Blood Count 3.80 x10^6/uL (4.30-5.70) Hemoglobin 11.5 g/dL (13.0-17.5) Hematocrit 34.2 % (39.0-53.0) Mean Corpuscular Volume 90 fL (79-100) Mean Corpuscular Hemoglobin 30 pg (25-35) Mean Corpuscular Hemoglobin Concent 34 g/dL (31-37) Red Cell Distribution Width 13.6 % (11.5-14.5) Platelet Count 172 x10^3/uL (140-400) Neutrophils (%) (Auto) 87 % (31-73) Lymphocytes (%) (Auto) 7 % (24-48) Monocytes (%) (Auto) 6 % (0-9) Eosinophils (%) (Auto) 0 % (0-3) Basophils (%) (Auto) 0 % (0-3) Neutrophils # (Auto) 8.9 x10^3/uL (1.8-7.7) Lymphocytes # (Auto) 0.7 x10^3/uL (1.0-4.8) Monocytes # (Auto) 0.6 x10^3/uL (0.0-1.1) Eosinophils # (Auto) 0.0 x10^3/uL (0.0-0.7) Basophils # (Auto) 0.0 x10^3/uL (0.0-0.2) Segmented Neutrophils % 84 % (35-66) Band Neutrophils % 4 % (0-9) Lymphocytes % 8 % (24-48) Monocytes % 4 % (0-10) Platelet Estimate Adequate (ADEQUATE) Sodium Level 146 mmol/L (136-145) Potassium Level 3.2 mmol/L (3.5-5.1) Chloride Level 115 mmol/L (98-107) Carbon Dioxide Level 23 mmol/L (21-32) Anion Gap 8 (6-14) Blood Urea Nitrogen 28 mg/dL (8-26) Creatinine 0.7 mg/dL (0.7-1.3) Estimated GFR (Cockcroft-Gault) 113.5 Glucose Level 146 mg/dL (70-99) Calcium Level 6.2 mg/dL (8.5-10.1) Laboratory Tests Test 02/17/20 08:00 02/17/20 11:10 O2 Saturation 97 % (92-99) Arterial Blood pH 7.39 (7.35-7.45) Arterial Blood pCO2 at Patient Temp 39 mmHg (35-46) Arterial Blood pO2 at Patient Temp 94 mmHg (65-108) Arterial Blood HCO3 23 mmol/L (21-28) Arterial Blood Base Excess -1 mmol/L (-3-3) FiO2 50/bipap White Blood Count 10.2 x10^3/uL (4.0-11.0) Red Blood Count 3.80 x10^6/uL (4.30-5.70) Hemoglobin 11.5 g/dL (13.0-17.5) Hematocrit 34.2 % (39.0-53.0) Mean Corpuscular Volume 90 fL (79-100) Mean Corpuscular Hemoglobin 30 pg (25-35) Mean Corpuscular Hemoglobin Concent 34 g/dL (31-37) Red Cell Distribution Width 13.6 % (11.5-14.5) Platelet Count 172 x10^3/uL (140-400) Neutrophils (%) (Auto) 87 % (31-73) Lymphocytes (%) (Auto) 7 % (24-48) Monocytes (%) (Auto) 6 % (0-9) Eosinophils (%) (Auto) 0 % (0-3) Basophils (%) (Auto) 0 % (0-3) Neutrophils # (Auto) 8.9 x10^3/uL (1.8-7.7) Lymphocytes # (Auto) 0.7 x10^3/uL (1.0-4.8) Monocytes # (Auto) 0.6 x10^3/uL (0.0-1.1) Eosinophils # (Auto) 0.0 x10^3/uL (0.0-0.7) Basophils # (Auto) 0.0 x10^3/uL (0.0-0.2) Segmented Neutrophils % 84 % (35-66) Band Neutrophils % 4 % (0-9) Lymphocytes % 8 % (24-48) Monocytes % 4 % (0-10) Platelet Estimate Adequate (ADEQUATE) Sodium Level 146 mmol/L (136-145) Potassium Level 3.2 mmol/L (3.5-5.1) Chloride Level 115 mmol/L (98-107) Carbon Dioxide Level 23 mmol/L (21-32) Anion Gap 8 (6-14) Blood Urea Nitrogen 28 mg/dL (8-26) Creatinine 0.7 mg/dL (0.7-1.3) Estimated GFR (Cockcroft-Gault) 113.5 Glucose Level 146 mg/dL (70-99) Calcium Level 6.2 mg/dL (8.5-10.1) Medications Current Medications Nicardipine HCl 50 mg/Sodium Chloride 250 ml @ 12.5 mls/hr CONT PRN IV SEE I/O RECORD Last administered on 02/16/20at 05:11; Start 02/14/20 at 03:30 Ondansetron HCl (Zofran) 8 mg 1X ONCE IVP Last administered on 02/14/20at 03:48; Start 02/14/20 at 04:00; Stop 02/14/20 at 04:01; Status DC Metoclopramide HCl (Reglan Vial) 10 mg STK-MED ONCE .ROUTE ; Start 02/14/20 at 04:00; Stop 02/14/20 at 04:00; Status DC Diphenhydramine HCl (Benadryl) 50 mg STK-MED ONCE .ROUTE ; Start 02/14/20 at 04:02; Stop 02/14/20 at 04:02; Status DC Hydromorphone HCl (Dilaudid) 2 mg STK-MED ONCE .ROUTE ; Start 02/14/20 at 04:02; Stop 02/14/20 at 04:03; Status DC Lidocaine HCl (Lidocaine 1% 20ml Vial) 20 ml STK-MED ONCE .ROUTE ; Start 02/14/20 at 04:11; Stop 02/14/20 at 04:12; Status DC Ondansetron HCl (Zofran) 4 mg PRN Q8HRS PRN IV NAUSEA/VOMITING 1ST CHOICE; Start 02/14/20 at 04:45; Stop 02/15/20 at 04:44; Status DC Morphine Sulfate (Morphine Sulfate) 4 mg PRN Q2HR PRN IV SEVERE PAIN 7-10; Start 02/14/20 at 04:45; Stop 02/15/20 at 04:44; Status DC Rocuronium [place] (Zemuron) 100 mg 1X ONCE IV Last administered on 02/14/20at 04:56; Start 02/14/20 at 05:00; Stop 02/14/20 at 05:01; Status DC Etomidate (Amidate) 20 mg 1X ONCE IV Last administered on 02/14/20at 04:56; Start 02/14/20 at 05:00; Stop 02/14/20 at 05:01; Status DC Fentanyl Citrate (Fentanyl 2ml Vial) 100 mcg 1X ONCE IVP Last administered on 02/14/20at 04:55; Start 02/14/20 at 05:00; Stop 02/14/20 at 05:01; Status DC Propofol (Diprivan) 200 mg STK-MED ONCE IV ; Start 02/14/20 at 05:02; Stop 02/14/20 at 05:03; Status DC Propofol 50 ml @ As Directed STK-MED ONCE IV ; Start 02/14/20 at 05:03; Stop 02/14/20 at 05:03; Status DC Propofol (Diprivan) 200 mg 1X ONCE IV ; Start 02/14/20 at 05:30; Stop 02/14/20 at 05:31; Status DC Vancomycin HCl 250 ml @ 250 mls/hr PREOP PRN PRN IV PREOP Last administered on 02/14/20at 06:48; Start 02/14/20 at 06:00; Stop 02/15/20 at 05:59; Status DC Propofol 100 ml @ 0 mls/hr CONT PRN IV SEE I/O RECORD Last administered on 02/14/20at 11:30; Start 02/14/20 at 06:30 Fentanyl Citrate (Fentanyl 2ml Vial) 50 mcg 1X ONCE IVP Last administered on 02/14/20at 06:48; Start 02/14/20 at 07:00; Stop 02/14/20 at 07:01; Status DC Lidocaine HCl (Xylocaine-Mpf 1% 2ml Vial) 2 ml STK-MED ONCE .ROUTE ; Start 02/14/20 at 06:43; Stop 02/14/20 at 06:43; Status DC Fentanyl Citrate (Fentanyl 2ml Vial) 50 mcg 1X ONCE IVP Last administered on 02/14/20at 07:23; Start 02/14/20 at 07:30; Stop 02/14/20 at 07:31; Status DC Fentanyl Citrate 30 ml @ 2.5 mls/hr CONT PRN IV SEE PROTOCOL Last administered on 02/15/20at 09:14; Start 02/14/20 at 07:30 Fentanyl Citrate (Fentanyl 2ml Vial) 25 mcg PRN Q1HR PRN IV SEE COMMENTS; Start 02/14/20 at 07:30; Stop 02/15/20 at 18:51; Status DC Fentanyl Citrate (Fentanyl 2ml Vial) 50 mcg PRN Q1HR PRN IV SEE COMMENTS; Start 02/14/20 at 07:30; Stop 02/15/20 at 18:51; Status DC Famotidine (Pepcid Vial) 20 mg BID IVP ; Start 02/14/20 at 21:00; Stop 02/14/20 at 16:18; Status DC Potassium Chloride/Dextrose/ Sod Cl 1,000 ml @ 50 mls/hr Q20H IV Last administered on 02/17/20at 04:37; Start 02/14/20 at 11:30 Pantoprazole Sodium (PROTONIX VIAL for IV PUSH) 40 mg DAILYAC IVP Last administered on 02/17/20at 12:11; Start 02/15/20 at 07:30 Vancomycin HCl 1 gm/Sodium Chloride 250 ml @ 250 mls/hr Q12H IV Last administered on 02/17/20at 04:35; Start 02/15/20 at 17:00; Stop 02/17/20 at 07:34; Status DC Vancomycin HCl (Vanco Per Pharmacy) 1 each PRN DAILY PRN MC SEE COMMENTS; Start 02/15/20 at 16:15; Stop 02/17/20 at 07:35; Status DC Fentanyl Citrate (Fentanyl 2ml Vial) 25 mcg Q1HR ONCE IV Last administered on 02/15/20at 18:54; Start 02/15/20 at 19:00; Stop 02/15/20 at 19:01; Status DC Fentanyl Citrate (Fentanyl 2ml Vial) 25 mcg PRN Q1HR PRN IVP SEVERE PAIN 7-10 Last administered on 02/17/20at 14:44; Start 02/15/20 at 22:30 Cefazolin Sodium/ Dextrose (Ancef 2gm Premix) 2 gm STK-MED ONCE IV ; Start 02/14/20 at 07:00; Stop 02/16/20 at 06:46; Status DC Dexamethasone Sodium Phosphate (Decadron) 4 mg Q6HRS IVP Last administered on 02/17/20at 14:40; Start 02/16/20 at 12:00 Dexamethasone Sodium Phosphate (Decadron) 4 mg 1X ONCE IVP Last administered on 02/16/20at 07:57; Start 02/16/20 at 08:00; Stop 02/16/20 at 08:01; Status DC Dexmedetomidine HCl 400 mcg/ Sodium Chloride 100 ml @ 0 mls/hr CONT PRN IV PER PROTOCOL Last administered on 02/17/20at 12:25; Start 02/16/20 at 08:30 Sodium Chloride 500 ml @ 500 mls/hr 1X PRN PRN IV SEE COMMENTS; Start 02/16/20 at 08:30 Atropine Sulfate (ATROPINE 0.5mg SYRINGE) 0.5 mg PRN Q5MIN PRN IV SEE COMMENTS; Start 02/16/20 at 08:30 Levofloxacin/ Dextrose 100 ml @ 100 mls/hr Q24H IV Last administered on 02/17/20at 12:11; Start 02/16/20 at 12:00 Albuterol/ Ipratropium (Duoneb) 3 ml RTQID NEB Last administered on 02/17/20at 17:12; Start 02/16/20 at 12:00 Active Scripts Active Reported Flomax (Tamsulosin Hcl) 0.4 Mg Cap.er.24h 1 Cap PO DAILY Vitals/I & O Vital Sign - Last 24 Hours 02/16/20 02/16/20 02/16/20 02/16/20 18:00 19:00 19:56 19:56 Pulse 74 78 Resp 16 16 20 B/P (MAP) 113/57 (75) 116/60 (78) Pulse Ox 97 97 94 94 O2 Delivery BiPAP/CPAP BiPAP/CPAP BiPAP/CPAP O2 Flow Rate 50.0 02/16/20 02/16/20 02/16/20 02/16/20 20:00 20:00 20:00 20:00 Temp 99.1 99.1 Pulse 79 79 Resp 20 B/P (MAP) 114/60 (78) 114/60 (78) 118/78 (91) Pulse Ox 97 O2 Delivery BiPAP/CPAP Bi-pap O2 Flow Rate 50.0 02/16/20 02/16/20 02/16/20 02/16/20 20:25 21:00 22:00 23:00 Pulse 70 68 72 Resp 18 18 18 20 B/P (MAP) 109/59 (76) 111/62 (78) 135/70 (91) Pulse Ox 97 97 98 99 O2 Delivery BiPAP/CPAP BiPAP/CPAP BiPAP/CPAP O2 Flow Rate 50.0 02/16/20 02/16/20 02/16/20 02/16/20 23:26 23:55 23:59 23:59 Temp 98.6 98.6 Pulse 67 67 Resp 24 20 20 B/P (MAP) 112/60 (77) 112/60 (77) Pulse Ox 50 98 98 O2 Delivery BiPAP/CPAP BiPAP/CPAP BiPAP/CPAP 02/17/20 02/17/20 02/17/20 02/17/20 00:20 00:40 01:00 02:00 Pulse 66 77 Resp 18 22 B/P (MAP) 109/73 (85) 143/73 (96) Pulse Ox 98 97 O2 Delivery BiPAP/CPAP Bi-pap BiPAP/CPAP BiPAP/CPAP O2 Flow Rate 50.0 02/17/20 02/17/20 02/17/20 02/17/20 02:03 02:30 03:00 03:00 Pulse 84 Resp 22 20 22 22 B/P (MAP) 148/80 (102) Pulse Ox 97 98 97 97 O2 Delivery Nasal Cannula BiPAP/CPAP BiPAP/CPAP BiPAP/CPAP 02/17/20 02/17/20 02/17/20 02/17/20 03:30 03:58 04:00 04:00 Temp 98.6 98.6 Pulse 62 62 Resp 20 20 B/P (MAP) 107/59 (75) 107/59 (75) Pulse Ox 98 97 98 O2 Delivery BiPAP/CPAP BiPAP/CPAP BiPAP/CPAP 02/17/20 02/17/20 02/17/20 02/17/20 04:00 05:00 06:00 06:01 Pulse 62 64 Resp 22 B/P (MAP) 109/70 (83) 119/66 (83) Pulse Ox 98 97 97 O2 Delivery Bi-pap BiPAP/CPAP BiPAP/CPAP BiPAP/CPAP O2 Flow Rate 50.0 02/17/20 02/17/20 02/17/20 02/17/20 06:30 07:00 08:00 08:00 Pulse 58 66 Resp 18 15 B/P (MAP) 112/60 (77) 107/59 (75) Pulse Ox 98 98 O2 Delivery BiPAP/CPAP BiPAP/CPAP Bi-pap O2 Flow Rate 50.0 02/17/20 02/17/20 02/17/20 02/17/20 08:00 08:39 08:54 09:00 Temp 97.8 97.8 Pulse 54 56 Resp 19 18 18 B/P (MAP) 122/64 (83) 118/74 (89) Pulse Ox 98 40 99 98 O2 Delivery BiPAP/CPAP BiPAP/CPAP BiPAP/CPAP BiPAP/CPAP 02/17/20 02/17/20 02/17/20 02/17/20 09:09 11:00 12:00 12:00 Pulse 64 62 Resp 18 B/P (MAP) 150/74 (99) Pulse Ox 99 97 O2 Delivery BiPAP/CPAP Bi-pap O2 Flow Rate 50.0 50.0 02/17/20 02/17/20 02/17/20 02/17/20 12:00 12:45 13:00 14:00 Temp 98.0 98.0 Pulse 54 64 54 Resp 17 17 13 B/P (MAP) 128/66 (86) 132/70 (90) 128/64 (85) Pulse Ox 98 99 99 99 O2 Delivery BiPAP/CPAP BiPAP/CPAP BiPAP/CPAP BiPAP/CPAP 02/17/20 02/17/20 02/17/20 02/17/20 14:44 15:00 16:00 16:00 Pulse 52 48 48 Resp 21 15 18 B/P (MAP) 136/58 (84) 126/66 (86) Pulse Ox 99 99 97 O2 Delivery BiPAP/CPAP BiPAP/CPAP BiPAP/CPAP 02/17/20 02/17/20 02/17/20 02/17/20 16:00 16:24 17:02 17:12 Pulse 48 50 B/P (MAP) 106/97 (100) Pulse Ox 99 99 O2 Delivery Bi-pap BiPAP/CPAP BiPAP/CPAP O2 Flow Rate 50.0 Intake and Output 02/16/20 02/16/20 02/17/20 15:00 23:00 07:00 Intake Total 100 ml 935 ml 1312 ml Output Total 585 ml 909 ml 383 ml Balance -485 ml 26 ml 929 ml Justifications for Admission Other Justification EKLLI JOY MD Feb 17, 2020 17:42
--- NOTE | 2020-02-17 20:00 | NUR ---
Dr Jones again raised ICP transducer today on previous shift, transducer now leveled at above patients head--zeroed at that position, HOB to remain at 25 degrees elevation and patient is not to be turned per Dr Jones; CF fluid continues to be serosang. Patient has left radial arterial line for lab draw and continuous close BP monitoring to keep SBP<150. BP will be documented under vital sign intervention hourly and arterial line intervention Q4HRS to avoid double charting. Arterial line running close to NIBP results and continues to be intermittently positional. Patient more restless and does calm minimally after Fentanyl but still moving right hand to face/head even with soft wrist restraint and and brandon on; Precedex increased to 0.5MCG/KG/HR.
--- NOTE | 2020-02-17 20:50 | NUR ---
Patient's ICP now -5 to 4, patient alert to self, confused to date/time, place and situation, denies pain and is able to carry on a conversation ie "what is this" (wrist restraint/brandon), "Take this off" "I need to leave"; and patient does answer yes/no questions appropriately--speech is clear. With agitation patient's SBP will increase to 160's but does decrease rapidly to <150 after administration of Fentanyl. Paged Dr Jones to review POC. DUC Lee returned page at 2029, notified of above--discussed negative ICP readings, increasing SBP, and increased restlessness. Rosa reinforced need for continued SBP<150 and restart Cardene as needed, continue Fentanyl/Precedex for sedation, reorder nonviolent soft wrist restraints to prevent accidental removal of ventriculostomy drain, and continue to monitor ICP. At 2044, DUC Lee called back stating she had spoke with Dr Jones regarding ICP readings. Per Dr Jones, decrease ICP transducer "a little" but continue to keep higher than patient's head. ICP transducer by ~4CM, leveled to above patient's head and re-zeroed.
[2020-02-18] VITALS (23 sets, daily range): BP systolic 118–154; BP diastolic 58–88
[2020-02-18] MEDS: fentaNYL PF VIAL 100 MCG/2 ML VIAL IVP PRN ×4 (00:07→23:00)
[2020-02-18] MEDS: DEXAMETHASONE SOD PHOS 4 MG/ML VIAL IVP SCH ×4 (00:09→18:00)
[2020-02-18] MEDS: DEXMEDETOMIDINE 400 MCG in IV NORMAL SALINE 100ML 96 ML IV PRN ×4 (00:30→18:35)
[2020-02-18] MEDS: POTASSIUM CL 20MEQ D5-0.45NACL 1,000 ML IV SCH (03:11)
[2020-02-18] MEDS: PANTOPRAZOLE IV PUSH 40 MG VIAL. IVP SCH (07:49)
[2020-02-18] MEDS: IPRATRPIUM/ALBUTEROL 0.5/2.5MG 3 ML NEBU. NEB SCH ×4 (08:38→20:34)
[2020-02-18 08:54] LABS: BASE EXCESS ABG 0 mmol/L (-3-3); HCO3 ABG 24 mmol/L (21-28); PCO2 ABG 39 mmHg (35-46); PO2 ABG 81 mmHg (65-108); SAT O2 ABG 96 % (92-99)
[2020-02-18 08:59] LABS: FIO2 ABG 50
--- NOTE | 2020-02-18 10:22 | PDOC ---
PROGRESS NOTES Date of Service DATE: 02/18/20 TIME: 10:20 Assessment Problems Medical Problems: (1) Intraparenchymal hemorrhage of brain Status: Acute Pulled out ICP monitor, 02/17 Right thalamic hemorrhage with intraventricular rupture. He developed acute hydrocephalus and required an emergent EVD Acute respiratory failure, extubated. Dense left hemiparesis. Plan Proceed with head CT today Monitor in intensive care unit. No need for prophylactic anticonvulsants Subjective none Objective Vital Signs Date Time Temp Pulse Resp B/P (MAP) Pulse Ox O2 Delivery O2 Flow Rate FiO2 02/18/20 08:38 98 BiPAP/CPAP 02/18/20 08:23 50.0 02/18/20 07:53 19 02/18/20 06:00 53 124/64 (84) 02/18/20 04:00 98.2 98.2 Intake and Output 02/18/20 07:00 Intake Total 1038 ml Output Total 1731 ml Balance -693 ml Intake Oral 0 ml IV Total 1038 ml Output Urine Total 1690 ml Drainage Total 41 ml PHYSICAL EXAM Just sedated, lethargic, moves right side to commands. PERRL. EOMI. CN: no focal findings. Muscle tone:normal in left arm, increased in left leg Muscle strength: Left hemiparesis DTR: 2+ Plantar reflex: extensor on the left Gait: not examined in bed. Sensory exam: no abnormal findings. No cerebellar signs elicited. Review of Relevant I have reviewed the following items faraz (where applicable) has been applied. Labs Laboratory Tests Test 02/17/20 08:00 02/17/20 11:10 02/18/20 08:50 O2 Saturation 97 % (92-99) 96 % (92-99) Arterial Blood pH 7.39 (7.35-7.45) 7.42 (7.35-7.45) Arterial Blood pCO2 at Patient Temp 39 mmHg (35-46) 39 mmHg (35-46) Arterial Blood pO2 at Patient Temp 94 mmHg (65-108) 81 mmHg (65-108) Arterial Blood HCO3 23 mmol/L (21-28) 24 mmol/L (21-28) Arterial Blood Base Excess -1 mmol/L (-3-3) 0 mmol/L (-3-3) FiO2 50/bipap 50 White Blood Count 10.2 x10^3/uL (4.0-11.0) Red Blood Count 3.80 x10^6/uL (4.30-5.70) Hemoglobin 11.5 g/dL (13.0-17.5) Hematocrit 34.2 % (39.0-53.0) Mean Corpuscular Volume 90 fL (79-100) Mean Corpuscular Hemoglobin 30 pg (25-35) Mean Corpuscular Hemoglobin Concent 34 g/dL (31-37) Red Cell Distribution Width 13.6 % (11.5-14.5) Platelet Count 172 x10^3/uL (140-400) Neutrophils (%) (Auto) 87 % (31-73) Lymphocytes (%) (Auto) 7 % (24-48) Monocytes (%) (Auto) 6 % (0-9) Eosinophils (%) (Auto) 0 % (0-3) Basophils (%) (Auto) 0 % (0-3) Neutrophils # (Auto) 8.9 x10^3/uL (1.8-7.7) Lymphocytes # (Auto) 0.7 x10^3/uL (1.0-4.8) Monocytes # (Auto) 0.6 x10^3/uL (0.0-1.1) Eosinophils # (Auto) 0.0 x10^3/uL (0.0-0.7) Basophils # (Auto) 0.0 x10^3/uL (0.0-0.2) Segmented Neutrophils % 84 % (35-66) Band Neutrophils % 4 % (0-9) Lymphocytes % 8 % (24-48) Monocytes % 4 % (0-10) Platelet Estimate Adequate (ADEQUATE) Sodium Level 146 mmol/L (136-145) Potassium Level 3.2 mmol/L (3.5-5.1) Chloride Level 115 mmol/L (98-107) Carbon Dioxide Level 23 mmol/L (21-32) Anion Gap 8 (6-14) Blood Urea Nitrogen 28 mg/dL (8-26) Creatinine 0.7 mg/dL (0.7-1.3) Estimated GFR (Cockcroft-Gault) 113.5 Glucose Level 146 mg/dL (70-99) Calcium Level 6.2 mg/dL (8.5-10.1) Laboratory Tests Test 02/17/20 11:10 02/18/20 08:50 White Blood Count 10.2 x10^3/uL (4.0-11.0) Red Blood Count 3.80 x10^6/uL (4.30-5.70) Hemoglobin 11.5 g/dL (13.0-17.5) Hematocrit 34.2 % (39.0-53.0) Mean Corpuscular Volume 90 fL (79-100) Mean Corpuscular Hemoglobin 30 pg (25-35) Mean Corpuscular Hemoglobin Concent 34 g/dL (31-37) Red Cell Distribution Width 13.6 % (11.5-14.5) Platelet Count 172 x10^3/uL (140-400) Neutrophils (%) (Auto) 87 % (31-73) Lymphocytes (%) (Auto) 7 % (24-48) Monocytes (%) (Auto) 6 % (0-9) Eosinophils (%) (Auto) 0 % (0-3) Basophils (%) (Auto) 0 % (0-3) Neutrophils # (Auto) 8.9 x10^3/uL (1.8-7.7) Lymphocytes # (Auto) 0.7 x10^3/uL (1.0-4.8) Monocytes # (Auto) 0.6 x10^3/uL (0.0-1.1) Eosinophils # (Auto) 0.0 x10^3/uL (0.0-0.7) Basophils # (Auto) 0.0 x10^3/uL (0.0-0.2) Segmented Neutrophils % 84 % (35-66) Band Neutrophils % 4 % (0-9) Lymphocytes % 8 % (24-48) Monocytes % 4 % (0-10) Platelet Estimate Adequate (ADEQUATE) Sodium Level 146 mmol/L (136-145) Potassium Level 3.2 mmol/L (3.5-5.1) Chloride Level 115 mmol/L (98-107) Carbon Dioxide Level 23 mmol/L (21-32) Anion Gap 8 (6-14) Blood Urea Nitrogen 28 mg/dL (8-26) Creatinine 0.7 mg/dL (0.7-1.3) Estimated GFR (Cockcroft-Gault) 113.5 Glucose Level 146 mg/dL (70-99) Calcium Level 6.2 mg/dL (8.5-10.1) O2 Saturation 96 % (92-99) Arterial Blood pH 7.42 (7.35-7.45) Arterial Blood pCO2 at Patient Temp 39 mmHg (35-46) Arterial Blood pO2 at Patient Temp 81 mmHg (65-108) Arterial Blood HCO3 24 mmol/L (21-28) Arterial Blood Base Excess 0 mmol/L (-3-3) FiO2 50 Medications Current Medications Nicardipine HCl 50 mg/Sodium Chloride 250 ml @ 12.5 mls/hr CONT PRN IV SEE I/O RECORD Last administered on 02/17/20at 21:34; Start 02/14/20 at 03:30 Ondansetron HCl (Zofran) 8 mg 1X ONCE IVP Last administered on 02/14/20at 03:48; Start 02/14/20 at 04:00; Stop 02/14/20 at 04:01; Status DC Metoclopramide HCl (Reglan Vial) 10 mg STK-MED ONCE .ROUTE ; Start 02/14/20 at 04:00; Stop 02/14/20 at 04:00; Status DC Diphenhydramine HCl (Benadryl) 50 mg STK-MED ONCE .ROUTE ; Start 02/14/20 at 04:02; Stop 02/14/20 at 04:02; Status DC Hydromorphone HCl (Dilaudid) 2 mg STK-MED ONCE .ROUTE ; Start 02/14/20 at 04:02; Stop 02/14/20 at 04:03; Status DC Lidocaine HCl (Lidocaine 1% 20ml Vial) 20 ml STK-MED ONCE .ROUTE ; Start 02/14/20 at 04:11; Stop 02/14/20 at 04:12; Status DC Ondansetron HCl (Zofran) 4 mg PRN Q8HRS PRN IV NAUSEA/VOMITING 1ST CHOICE; Start 02/14/20 at 04:45; Stop 02/15/20 at 04:44; Status DC Morphine Sulfate (Morphine Sulfate) 4 mg PRN Q2HR PRN IV SEVERE PAIN 7-10; Start 02/14/20 at 04:45; Stop 02/15/20 at 04:44; Status DC Rocuronium [place] (Zemuron) 100 mg 1X ONCE IV Last administered on 02/14/20at 04:56; Start 02/14/20 at 05:00; Stop 02/14/20 at 05:01; Status DC Etomidate (Amidate) 20 mg 1X ONCE IV Last administered on 02/14/20at 04:56; St art 02/14/20 at 05:00; Stop 02/14/20 at 05:01; Status DC Fentanyl Citrate (Fentanyl 2ml Vial) 100 mcg 1X ONCE IVP Last administered on 02/14/20at 04:55; Start 02/14/20 at 05:00; Stop 02/14/20 at 05:01; Status DC Propofol (Diprivan) 200 mg STK-MED ONCE IV ; Start 02/14/20 at 05:02; Stop 02/14/20 at 05:03; Status DC Propofol 50 ml @ As Directed STK-MED ONCE IV ; Start 02/14/20 at 05:03; Stop 02/14/20 at 05:03; Status DC Propofol (Diprivan) 200 mg 1X ONCE IV ; Start 02/14/20 at 05:30; Stop 02/14/20 at 05:31; Status DC Vancomycin HCl 250 ml @ 250 mls/hr PREOP PRN PRN IV PREOP Last administered on 02/14/20at 06:48; Start 02/14/20 at 06:00; Stop 02/15/20 at 05:59; Status DC Propofol 100 ml @ 0 mls/hr CONT PRN IV SEE I/O RECORD Last administered on 02/14/20at 11:30; Start 02/14/20 at 06:30 Fentanyl Citrate (Fentanyl 2ml Vial) 50 mcg 1X ONCE IVP Last administered on 02/14/20at 06:48; Start 02/14/20 at 07:00; Stop 02/14/20 at 07:01; Status DC Lidocaine HCl (Xylocaine-Mpf 1% 2ml Vial) 2 ml STK-MED ONCE .ROUTE ; Start 02/14/20 at 06:43; Stop 02/14/20 at 06:43; Status DC Fentanyl Citrate (Fentanyl 2ml Vial) 50 mcg 1X ONCE IVP Last administered on 02/14/20at 07:23; Start 02/14/20 at 07:30; Stop 02/14/20 at 07:31; Status DC Fentanyl Citrate 30 ml @ 2.5 mls/hr CONT PRN IV SEE PROTOCOL Last administered on 02/15/20at 09:14; Start 02/14/20 at 07:30 Fentanyl Citrate (Fentanyl 2ml Vial) 25 mcg PRN Q1HR PRN IV SEE COMMENTS; Start 02/14/20 at 07:30; Stop 02/15/20 at 18:51; Status DC Fentanyl Citrate (Fentanyl 2ml Vial) 50 mcg PRN Q1HR PRN IV SEE COMMENTS; Start 02/14/20 at 07:30; Stop 02/15/20 at 18:51; Status DC Famotidine (Pepcid Vial) 20 mg BID IVP ; Start 02/14/20 at 21:00; Stop 02/14/20 at 16:18; Status DC Potassium Chloride/Dextrose/ Sod Cl 1,000 ml @ 50 mls/hr Q20H IV Last administered on 02/18/20at 03:11; Start 02/14/20 at 11:30 Pantoprazole Sodium (PROTONIX VIAL for IV PUSH) 40 mg DAILYAC IVP Last administered on 02/18/20at 07:49; Start 02/15/20 at 07:30 Vancomycin HCl 1 gm/Sodium Chloride 250 ml @ 250 mls/hr Q12H IV Last administered on 02/17/20at 04:35; Start 02/15/20 at 17:00; Stop 02/17/20 at 07:34; Status DC Vancomycin HCl (Vanco Per Pharmacy) 1 each PRN DAILY PRN MC SEE COMMENTS; Start 02/15/20 at 16:15; Stop 02/17/20 at 07:35; Status DC Fentanyl Citrate (Fentanyl 2ml Vial) 25 mcg Q1HR ONCE IV Last administered on 02/15/20at 18:54; Start 02/15/20 at 19:00; Stop 02/15/20 at 19:01; Status DC Fentanyl Citrate (Fentanyl 2ml Vial) 25 mcg PRN Q1HR PRN IVP SEVERE PAIN 7-10 Last administered on 02/18/20at 07:53; Start 02/15/20 at 22:30 Cefazolin Sodium/ Dextrose (Ancef 2gm Premix) 2 gm STK-MED ONCE IV ; Start 02/14/20 at 07:00; Stop 02/16/20 at 06:46; Status DC Dexamethasone Sodium Phosphate (Decadron) 4 mg Q6HRS IVP Last administered on 02/18/20at 06:45; Start 02/16/20 at 12:00 Dexamethasone Sodium Phosphate (Decadron) 4 mg 1X ONCE IVP Last administered on 02/16/20at 07:57; Start 02/16/20 at 08:00; Stop 02/16/20 at 08:01; Status DC Dexmedetomidine HCl 400 mcg/ Sodium Chloride 100 ml @ 0 mls/hr CONT PRN IV PER PROTOCOL Last administered on 02/18/20at 09:24; Start 02/16/20 at 08:30 Sodium Chloride 500 ml @ 500 mls/hr 1X PRN PRN IV SEE COMMENTS; Start 02/16/20 at 08:30 Atropine Sulfate (ATROPINE 0.5mg SYRINGE) 0.5 mg PRN Q5MIN PRN IV SEE COMMENTS; Start 02/16/20 at 08:30 Levofloxacin/ Dextrose 100 ml @ 100 mls/hr Q24H IV Last administered on 02/17/20at 12:11; Start 02/16/20 at 12:00 Albuterol/ Ipratropium (Duoneb) 3 ml RTQID NEB Last administered on 02/18/20at 08:38; Start 02/16/20 at 12:00 Lorazepam (Ativan Inj) 1 mg PRN Q2HRS PRN IVP ANXIETY / AGITATION Last administered on 02/18/20at 09:11; Start 02/18/20 at 09:00 Active Scripts Active Reported Flomax (Tamsulosin Hcl) 0.4 Mg Cap.er.24h 1 Cap PO DAILY Vitals/I & O Vital Sign - Last 24 Hours 02/17/20 02/17/20 02/17/20 02/17/20 11:00 12:00 12:00 12:00 Temp 98.0 98.0 Pulse 64 62 54 Resp 18 17 B/P (MAP) 150/74 (99) 128/66 (86) Pulse Ox 97 98 O2 Delivery BiPAP/CPAP Bi-pap BiPAP/CPAP O2 Flow Rate 50.0 02/17/20 02/17/20 02/17/20 02/17/20 12:45 13:00 14:00 14:44 Pulse 64 54 Resp 17 13 21 B/P (MAP) 132/70 (90) 128/64 (85) Pulse Ox 99 99 99 99 O2 Delivery BiPAP/CPAP BiPAP/CPAP BiPAP/CPAP BiPAP/CPAP 02/17/20 02/17/20 02/17/20 02/17/20 15:00 15:11 16:00 16:00 Pulse 52 48 48 Resp 15 18 B/P (MAP) 136/58 (84) 126/66 (86) Pulse Ox 99 99 97 O2 Delivery BiPAP/CPAP BiPAP/CPAP O2 Flow Rate 50.0 02/17/20 02/17/20 02/17/20 02/17/20 16:00 16:24 17:02 17:12 Pulse 48 50 B/P (MAP) 106/97 (100) Pulse Ox 99 99 O2 Delivery Bi-pap BiPAP/CPAP BiPAP/CPAP O2 Flow Rate 50.0 02/17/20 02/17/20 02/17/20 02/17/20 18:00 18:11 18:41 19:00 Temp 98.6 98.6 Pulse 74 86 Resp 22 B/P (MAP) 116/88 (97) 156/82 (106) Pulse Ox 98 99 99 99 O2 Delivery BiPAP/CPAP BiPAP/CPAP BiPAP/CPAP O2 Flow Rate 50.0 02/17/20 02/17/20 02/17/20 02/17/20 19:02 19:30 19:46 20:00 Resp 20 20 B/P (MAP) 132/65 (87) Pulse Ox 99 99 97 O2 Delivery BiPAP/CPAP BiPAP/CPAP BiPAP/CPAP 02/17/20 02/17/20 02/17/20 02/17/20 20:00 20:00 20:00 21:00 Temp 98.5 98.5 Pulse 65 65 69 Resp 18 22 B/P (MAP) 125/67 (86) 125/67 (86) 150/76 (100) Pulse Ox 98 99 O2 Delivery Bi-pap BiPAP/CPAP BiPAP/CPAP O2 Flow Rate 50.0 02/17/20 02/17/20 02/17/20 02/17/20 21:03 21:25 21:30 21:30 Pulse 74 72 Resp 24 20 20 24 B/P (MAP) 160/80 (106) 160/76 (104) Pulse Ox 99 97 98 98 O2 Delivery BiPAP/CPAP BiPAP/CPAP BiPAP/CPAP 02/17/20 02/17/20 02/17/20 02/17/20 21:45 22:00 23:00 23:59 Pulse 50 53 54 Resp 18 18 20 B/P (MAP) 137/66 (89) 129/64 (85) 117/61 (79) Pulse Ox 99 98 98 O2 Delivery BiPAP/CPAP BiPAP/CPAP BiPAP/CPAP Bi-pap O2 Flow Rate 50.0 02/17/20 02/17/20 02/18/20 02/18/20 23:59 23:59 00:07 00:10 Temp 98.2 98.2 Pulse 78 78 Resp 24 B/P (MAP) 138/90 (106) 138/80 (99) Pulse Ox 96 97 97 O2 Delivery BiPAP/CPAP BiPAP/CPAP BiPAP/CPAP 02/18/20 02/18/20 02/18/20 02/18/20 00:30 01:00 02:00 03:00 Pulse 84 56 70 Resp 22 18 20 B/P (MAP) 118/60 (79) 123/60 (81) 149/75 (99) Pulse Ox 97 99 97 99 O2 Delivery BiPAP/CPAP BiPAP/CPAP BiPAP/CPAP BiPAP/CPAP 02/18/20 02/18/20 02/18/20 02/18/20 03:03 03:30 04:00 04:00 Temp 98.2 98.2 Pulse 80 80 Resp 18 20 18 B/P (MAP) 142/68 (92) 142/68 (92) Pulse Ox 99 99 98 O2 Delivery BiPAP/CPAP BiPAP/CPAP BiPAP/CPAP 02/18/20 02/18/20 02/18/20 02/18/20 04:00 04:47 05:00 06:00 Pulse 50 53 Resp 18 B/P (MAP) 122/60 (80) 124/64 (84) Pulse Ox 98 97 99 O2 Delivery Bi-pap BiPAP/CPAP BiPAP/CPAP BiPAP/CPAP O2 Flow Rate 50.0 02/18/20 02/18/20 02/18/20 07:53 08:23 08:38 Resp 19 Pulse Ox 99 99 98 O2 Delivery BiPAP/CPAP O2 Flow Rate 50.0 50.0 Intake and Output 02/17/20 02/17/20 02/18/20 15:00 23:00 07:00 Intake Total 100 ml 0 ml 938 ml Output Total 300 ml 493 ml 938 ml Balance -200 ml -493 ml 0 ml Justicifation of Admission Dx: Justifications for Admission: Justification of Admission Dx: Yes Acute Hemorrhagic Stroke: Acute Hemorrhagic Stroke TEE FRANCIS MD Feb 18, 2020 10:22
--- NOTE | 2020-02-18 11:18 | PDOC ---
[facility] PROGRESS NOTE Date of Service DOS: DATE: 02/18/20 TIME: 11:16 Chief Complaint Chief Complaint Intraparenchymal hemorrhage of brain (thalamic hemorrhage with intraventricular rupture) Acute intraparenchymal hematoma centered within the right thalamus with a volume of approximately 14 cc. Intraventricular extension of hemorrhage filling much of the right lateral ventricle and extending downwards through the fourth ventricle.hematoma and associated edema exert mass effect on the foramen of Prieto and a portion of the third ventricle. dilatation of the right lateral ventricle temporal horn developing hydrocephalus. 02/13 ctRight frontal approach ventriculostomy . Stable ventricular configuration. Stable right basal ganglia acute intraparenchymal hemorrhage with intraventricular extension. Mass effect with sulcal effacement and increased suprasellar cistern effacement. Acute hypoxic resp failure Prior old stroke Hyperlipidemia Tobacco abuse Dense left hemiparesis History of Present Illness History of Present Illness 02/18/2020 Patient seen and examined in the ICU He has mitts on but somehow was able to squeeze onto his [employer] monitor tube and pulled out I discussed case with the high risk case manager and RN Chart reviewed 02/17/2020 Patient seen and examined in the ICU He is on BiPAP His daughter is present Discussed with RN Discussed with case management Chart reviewed Vitals/I&O Vitals/I&O: Vital Signs Date Time Temp Pulse Resp B/P (MAP) Pulse Ox O2 Delivery O2 Flow Rate FiO2 02/18/20 08:38 98 BiPAP/CPAP 02/18/20 08:23 50.0 02/18/20 07:53 19 02/18/20 06:00 53 124/64 (84) 02/18/20 04:00 98.2 98.2 I & O 02/17/20 02/17/20 02/18/20 15:00 23:00 07:00 Intake Total 100 ml 0 ml 938 ml Output Total 300 ml 493 ml 938 ml Balance -200 ml -493 ml 0 ml Physical Exam General: Other (Sedated) Heart: Regular rate Lungs: Crackles Abdomen: Normal bowel sounds Extremities: No cyanosis Labs Labs: Laboratory Tests Test 02/18/20 08:50 O2 Saturation 96 % (92-99) Arterial Blood pH 7.42 (7.35-7.45) Arterial Blood pCO2 at Patient Temp 39 mmHg (35-46) Arterial Blood pO2 at Patient Temp 81 mmHg (65-108) Arterial Blood HCO3 24 mmol/L (21-28) Arterial Blood Base Excess 0 mmol/L (-3-3) FiO2 50 Assessment and Plan Assessmemt and Plan Problems Medical Problems: (1) Intraparenchymal hemorrhage of brain Status: Acute Intraparenchymal hemorrhage of brain (thalamic hemorrhage with intraventricular rupture) Acute intraparenchymal hematoma centered within the right thalamus with a volume of approximately 14 cc. Intraventricular extension of hemorrhage filling much of the right lateral ventricle and extending downwards through the fourth ventricle.hematoma and associated edema exert mass effect on the foramen of Prieto and a portion of the third ventricle. dilatation of the right lateral ventricle temporal horn developing hydrocephalus. 02/13 ctRight frontal approach ventriculostomy . Stable ventricular configuration. Stable right basal ganglia acute intraparenchymal hemorrhage with intraventricular extension. Mass effect with sulcal effacement and increased suprasellar cistern effacement. Acute hypoxic resp failure Prior old stroke Hyperlipidemia Tobacco abuse Dense left hemiparesis Plan ICU monitoring CT head to check status of the bleed He is probably going to need acute rehab or long-term acute care Trend labs Trying to resume home meds when possible DVT prophylaxis Full code He is critically ill Long-term prognosis guarded Comment Review of Relevant I have reviewed the following items faraz (where applicable) has been applied. Medications: Current Medications Medications (Trade) Dose Ordered Sig/Fabricio Route PRN Reason Start Time Stop Time Status Last Admin Dose Admin Lorazepam (Ativan Inj) 1 mg PRN Q2HRS PRN IVP ANXIETY / AGITATION 02/18/20 09:00 02/18/20 09:11 Justifications for Admission Other Justification ELENI PICKARD III DO Feb 18, 2020 11:18
--- NOTE | 2020-02-18 11:42 | PDOC ---
PULMONARY PROGRESS NOTES DATE: 02/18/20 TIME: 11:38 Subjective remains on BIPAP, FIO2 decreased to 50% sedated pulled out ventriculostomy tube S/P ventricular system 02/15/20 Vitals Vital Signs Date Time Temp Pulse Resp B/P (MAP) Pulse Ox O2 Delivery O2 Flow Rate FiO2 02/18/20 08:38 98 BiPAP/CPAP 02/18/20 08:23 50.0 02/18/20 07:53 19 02/18/20 06:00 53 124/64 (84) 02/18/20 04:00 98.2 98.2 Lungs: Crackles Cardiovascular: S1 Abdomen: Soft Skin: Warm Labs Laboratory Tests Test 02/17/20 08:00 02/17/20 11:10 02/18/20 08:50 O2 Saturation 97 % (92-99) 96 % (92-99) Arterial Blood pH 7.39 (7.35-7.45) 7.42 (7.35-7.45) Arterial Blood pCO2 at Patient Temp 39 mmHg (35-46) 39 mmHg (35-46) Arterial Blood pO2 at Patient Temp 94 mmHg (65-108) 81 mmHg (65-108) Arterial Blood HCO3 23 mmol/L (21-28) 24 mmol/L (21-28) Arterial Blood Base Excess -1 mmol/L (-3-3) 0 mmol/L (-3-3) FiO2 50/bipap 50 White Blood Count 10.2 x10^3/uL (4.0-11.0) Red Blood Count 3.80 x10^6/uL (4.30-5.70) Hemoglobin 11.5 g/dL (13.0-17.5) Hematocrit 34.2 % (39.0-53.0) Mean Corpuscular Volume 90 fL (79-100) Mean Corpuscular Hemoglobin 30 pg (25-35) Mean Corpuscular Hemoglobin Concent 34 g/dL (31-37) Red Cell Distribution Width 13.6 % (11.5-14.5) Platelet Count 172 x10^3/uL (140-400) Neutrophils (%) (Auto) 87 % (31-73) Lymphocytes (%) (Auto) 7 % (24-48) Monocytes (%) (Auto) 6 % (0-9) Eosinophils (%) (Auto) 0 % (0-3) Basophils (%) (Auto) 0 % (0-3) Neutrophils # (Auto) 8.9 x10^3/uL (1.8-7.7) Lymphocytes # (Auto) 0.7 x10^3/uL (1.0-4.8) Monocytes # (Auto) 0.6 x10^3/uL (0.0-1.1) Eosinophils # (Auto) 0.0 x10^3/uL (0.0-0.7) Basophils # (Auto) 0.0 x10^3/uL (0.0-0.2) Segmented Neutrophils % 84 % (35-66) Band Neutrophils % 4 % (0-9) Lymphocytes % 8 % (24-48) Monocytes % 4 % (0-10) Platelet Estimate Adequate (ADEQUATE) Sodium Level 146 mmol/L (136-145) Potassium Level 3.2 mmol/L (3.5-5.1) Chloride Level 115 mmol/L (98-107) Carbon Dioxide Level 23 mmol/L (21-32) Anion Gap 8 (6-14) Blood Urea Nitrogen 28 mg/dL (8-26) Creatinine 0.7 mg/dL (0.7-1.3) Estimated GFR (Cockcroft-Gault) 113.5 Glucose Level 146 mg/dL (70-99) Calcium Level 6.2 mg/dL (8.5-10.1) Laboratory Tests Test 02/18/20 08:50 O2 Saturation 96 % (92-99) Arterial Blood pH 7.42 (7.35-7.45) Arterial Blood pCO2 at Patient Temp 39 mmHg (35-46) Arterial Blood pO2 at Patient Temp 81 mmHg (65-108) Arterial Blood HCO3 24 mmol/L (21-28) Arterial Blood Base Excess 0 mmol/L (-3-3) FiO2 50 Medications Active Scripts Medications Dose Route/Sig Max Daily Dose Days Date Category Flomax (Tamsulosin Hcl) 0.4 Mg Cap.er.24h 1 Cap PO DAILY 02/14/20 Reported Comments CXR IMPRESSION: 1. Life-support devices as above. 2. Bibasilar heterogeneous opacities, which could represent subsegmental atelectasis, infection, or aspiration. Impression . IMPRESSION: 1. Acute respiratory failure secondary to cerebrovascular accident., Right lower lobe atelectasis, possible aspiration pneumonia 2. Hypertensive crisis. 3. 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 4. Status post ventriculostomy. 5. Intracerebral bleeding. 6. Encephalopathy secondary to above. 7. History of hypertension. 8. History of previous cerebrovascular accident. 9. Tobacco dependent. 10. Abnormal chest x-ray Plan . BiPAP as needed wean FIO2 as tolerated Empiric antibiotic Started on dexamethasone CT chest when stable Follow neurosurgery and neurology recs Cont. aggressive treatment of HTN, off of nicardipine DVT/GI PPX d/w daughter. Pulmonary status depends on neuro improvement Total cumulative critical care time of 30 minutes Spoke with RN/RT ABRAN BARAKAT MD Feb 18, 2020 11:42
--- NOTE | 2020-02-18 14:35 | NUR ---
SS following up with discharge planning. SS reviewed pt chart and discussed with pt RN. Pt on BIPAP and IV Levofloxacin. Per RN, pt pulled out drain this morning. Pt having CT scan. SS will continue to follow for discharge planning.
--- NOTE | 2020-02-18 14:56 | RAD ---
EXAM: CT Head without IV contrast INDICATION: Reason: Recheck brain bleed-PT UNABLE TO LIE STILL-ICU [id number] / Spl. Instructions: / History: TECHNIQUE: Multi-detector row CT images were obtained of the head without the use of IV contrast. All CT scans performed at this facility utilize dose optimization techniques as appropriate to the exam, including the following: Automated exposure control and adjustment of the mA and/or KV according to patient size (this includes techniques or standardized protocols for targeted exams where dose is indication/reason for exam). COMPARISON: 02/14/2020 noncontrast head CTs at 8:33 AM and 1:29 PM FINDINGS: BRAIN PARENCHYMA: The right frontal ventriculostomy catheter has been removed. The right thalamic intraparenchymal acute hemorrhage remains present with intraventricular extension, similar in size to prior measuring approximately 3.4 x 2.8 x 3.9 cm in width by AP diameter by craniocaudal extent. No new intraparenchymal hemorrhage and no acute infarct. Some blood is present along the palmar tract of the ventriculostomy catheter. VENTRICLES & EXTRA-AXIAL SPACES: Enlargement of the lateral ventricles is improved, with less dense blood in the third and lateral ventricles, best appreciated in the occipital horn of the right lateral ventricle. The cisterns show residual mild effacement of the right lateral ambient cistern but overall are patent. No crowding of the foramen magnum. No new pathologic extra-axial fluid collection or mass. ORBITS: orbits are unremarkable. SINUSES: Visualized paranasal sinuses and mastoid air cells are clear. The frontal sinuses are hypoplastic. OSSEOUS & SOFT TISSUES: Calvarium and skull base are otherwise intact. IMPRESSION: Right thalamic intraparenchymal hemorrhage with intraventricular extension showing slight interval decrease in intraventricular blood and associated findings of obstructive hydrocephalus. No new acute superimposed intracranial pathology shown status post interval removal of the right frontal approach ventriculostomy catheter. Electronically signed by: Tami Small MD (02/18/2020 2:53 PM) [id number]
--- NOTE | 2020-02-18 16:45 | PDOC ---
PROGRESS NOTES Date of Service DATE: 02/18/20 TIME: 16:41 Subjective Subjective seen at 1230 on [address]ex gtt, On Bipap pull out EVD opens eyes to gentle stimulation, pupils react moves right upper and lower extremities left hemiparesis <10 cc CSF output prior to drain being pulled [place] CT head hopefully he will continue to reabsorb spinal fluid BP control D/W Nursing SCDs Objective Objective Vital Signs Date Time Temp Pulse Resp B/P (MAP) Pulse Ox O2 Delivery O2 Flow Rate FiO2 02/18/20 16:00 98.1 48 18 145/82 (103) BiPAP/CPAP 98.1 02/18/20 14:00 97 02/18/20 08:23 50.0 Intake and Output 02/18/20 07:00 Intake Total 1038 ml Output Total 1731 ml Balance -693 ml Intake Oral 0 ml IV Total 1038 ml Output Urine Total 1690 ml Drainage Total 41 ml Assessment Assessment Problems Medical Problems: (1) Intraparenchymal hemorrhage of brain Status: Acute Comment Review of Relevant I have reviewed the following items faraz (where applicable) has been applied. Labs Laboratory Tests Test 02/17/20 08:00 02/17/20 11:10 02/18/20 08:50 O2 Saturation 97 % (92-99) 96 % (92-99) Arterial Blood pH 7.39 (7.35-7.45) 7.42 (7.35-7.45) Arterial Blood pCO2 at Patient Temp 39 mmHg (35-46) 39 mmHg (35-46) Arterial Blood pO2 at Patient Temp 94 mmHg (65-108) 81 mmHg (65-108) Arterial Blood HCO3 23 mmol/L (21-28) 24 mmol/L (21-28) Arterial Blood Base Excess -1 mmol/L (-3-3) 0 mmol/L (-3-3) FiO2 50/bipap 50 White Blood Count 10.2 x10^3/uL (4.0-11.0) Red Blood Count 3.80 x10^6/uL (4.30-5.70) Hemoglobin 11.5 g/dL (13.0-17.5) Hematocrit 34.2 % (39.0-53.0) Mean Corpuscular Volume 90 fL (79-100) Mean Corpuscular Hemoglobin 30 pg (25-35) Mean Corpuscular Hemoglobin Concent 34 g/dL (31-37) Red Cell Distribution Width 13.6 % (11.5-14.5) Platelet Count 172 x10^3/uL (140-400) Neutrophils (%) (Auto) 87 % (31-73) Lymphocytes (%) (Auto) 7 % (24-48) Monocytes (%) (Auto) 6 % (0-9) Eosinophils (%) (Auto) 0 % (0-3) Basophils (%) (Auto) 0 % (0-3) Neutrophils # (Auto) 8.9 x10^3/uL (1.8-7.7) Lymphocytes # (Auto) 0.7 x10^3/uL (1.0-4.8) Monocytes # (Auto) 0.6 x10^3/uL (0.0-1.1) Eosinophils # (Auto) 0.0 x10^3/uL (0.0-0.7) Basophils # (Auto) 0.0 x10^3/uL (0.0-0.2) Segmented Neutrophils % 84 % (35-66) Band Neutrophils % 4 % (0-9) Lymphocytes % 8 % (24-48) Monocytes % 4 % (0-10) Platelet Estimate Adequate (ADEQUATE) Sodium Level 146 mmol/L (136-145) Potassium Level 3.2 mmol/L (3.5-5.1) Chloride Level 115 mmol/L (98-107) Carbon Dioxide Level 23 mmol/L (21-32) Anion Gap 8 (6-14) Blood Urea Nitrogen 28 mg/dL (8-26) Creatinine 0.7 mg/dL (0.7-1.3) Estimated GFR (Cockcroft-Gault) 113.5 Glucose Level 146 mg/dL (70-99) Calcium Level 6.2 mg/dL (8.5-10.1) Laboratory Tests Test 02/18/20 08:50 O2 Saturation 96 % (92-99) Arterial Blood pH 7.42 (7.35-7.45) Arterial Blood pCO2 at Patient Temp 39 mmHg (35-46) Arterial Blood pO2 at Patient Temp 81 mmHg (65-108) Arterial Blood HCO3 24 mmol/L (21-28) Arterial Blood Base Excess 0 mmol/L (-3-3) FiO2 50 Medications Current Medications Nicardipine HCl 50 mg/Sodium Chloride 250 ml @ 12.5 mls/hr CONT PRN IV SEE I/O RECORD Last administered on 02/17/20at 21:34; Start 02/14/20 at 03:30 Ondansetron HCl (Zofran) 8 mg 1X ONCE IVP Last administered on 02/14/20at 03:48; Start 02/14/20 at 04:00; Stop 02/14/20 at 04:01; Status DC Metoclopramide HCl (Reglan Vial) 10 mg STK-MED ONCE .ROUTE ; Start 02/14/20 at 04:00; Stop 02/14/20 at 04:00; Status DC Diphenhydramine HCl (Benadryl) 50 mg STK-MED ONCE .ROUTE ; Start 02/14/20 at 04:02; Stop 02/14/20 at 04:02; Status DC Hydromorphone HCl (Dilaudid) 2 mg STK-MED ONCE .ROUTE ; Start 02/14/20 at 04:02; Stop 02/14/20 at 04:03; Status DC Lidocaine HCl (Lidocaine 1% 20ml Vial) 20 ml STK-MED ONCE .ROUTE ; Start 02/13 at 04:11; Stop 02/14/20 at 04:12; Status DC Ondansetron HCl (Zofran) 4 mg PRN Q8HRS PRN IV NAUSEA/VOMITING 1ST CHOICE; St art 02/14/20 at 04:45; Stop 02/15/20 at 04:44; Status DC Morphine Sulfate (Morphine Sulfate) 4 mg PRN Q2HR PRN IV SEVERE PAIN 7-10; Start 02/14/20 at 04:45; Stop 02/15/20 at 04:44; Status DC Rocuronium [place] (Zemuron) 100 mg 1X ONCE IV Last administered on 02/14/20at 04:56; Start 02/14/20 at 05:00; Stop 02/14/20 at 05:01; Status DC Etomidate (Amidate) 20 mg 1X ONCE IV Last administered on 02/14/20at 04:56; Start 02/14/20 at 05:00; Stop 02/14/20 at 05:01; Status DC Fentanyl Citrate (Fentanyl 2ml Vial) 100 mcg 1X ONCE IVP Last administered on 02/14/20at 04:55; Start 02/14/20 at 05:00; Stop 02/14/20 at 05:01; Status DC Propofol (Diprivan) 200 mg STK-MED ONCE IV ; Start 02/14/20 at 05:02; Stop 02/14/20 at 05:03; Status DC Propofol 50 ml @ As Directed STK-MED ONCE IV ; Start 02/14/20 at 05:03; Stop 02/14/20 at 05:03; Status DC Propofol (Diprivan) 200 mg 1X ONCE IV ; Start 02/14/20 at 05:30; Stop 02/14/20 at 05:31; Status DC Vancomycin HCl 250 ml @ 250 mls/hr PREOP PRN PRN IV PREOP Last administered on 02/14/20at 06:48; Start 02/14/20 at 06:00; Stop 02/15/20 at 05:59; Status DC Propofol 100 ml @ 0 mls/hr CONT PRN IV SEE I/O RECORD Last administered on 02/14/20at 11:30; Start 02/14/20 at 06:30 Fentanyl Citrate (Fentanyl 2ml Vial) 50 mcg 1X ONCE IVP Last administered on 02/14/20at 06:48; Start 02/14/20 at 07:00; Stop 02/14/20 at 07:01; Status DC Lidocaine HCl (Xylocaine-Mpf 1% 2ml Vial) 2 ml STK-MED ONCE .ROUTE ; Start 02/14/20 at 06:43; Stop 02/14/20 at 06:43; Status DC Fentanyl Citrate (Fentanyl 2ml Vial) 50 mcg 1X ONCE IVP Last administered on 02/14/20at 07:23; Start 02/14/20 at 07:30; Stop 02/14/20 at 07:31; Status DC Fentanyl Citrate 30 ml @ 2.5 mls/hr CONT PRN IV SEE PROTOCOL Last administered on 02/15/20at 09:14; Start 02/14/20 at 07:30 Fentanyl Citrate (Fentanyl 2ml Vial) 25 mcg PRN Q1HR PRN IV SEE COMMENTS; Start 02/14/20 at 07:30; Stop 02/15/20 at 18:51; Status DC Fentanyl Citrate (Fentanyl 2ml Vial) 50 mcg PRN Q1HR PRN IV SEE COMMENTS; Start 02/14/20 at 07:30; Stop 02/15/20 at 18:51; Status DC Famotidine (Pepcid Vial) 20 mg BID IVP ; Start 02/14/20 at 21:00; Stop 02/14/20 at 16:18; Status DC Potassium Chloride/Dextrose/ Sod Cl 1,000 ml @ 50 mls/hr Q20H IV Last administered on 02/18/20at 03:11; Start 02/14/20 at 11:30 Pantoprazole Sodium (PROTONIX VIAL for IV PUSH) 40 mg DAILYAC IVP Last administered on 02/18/20at 07:49; Start 02/15/20 at 07:30 Vancomycin HCl 1 gm/Sodium Chloride 250 ml @ 250 mls/hr Q12H IV Last administered on 02/17/20at 04:35; Start 02/15/20 at 17:00; Stop 02/17/20 at 07:34; Status DC Vancomycin HCl (Vanco Per Pharmacy) 1 each PRN DAILY PRN MC SEE COMMENTS; Start 02/15/20 at 16:15; Stop 02/17/20 at 07:35; Status DC Fentanyl Citrate (Fentanyl 2ml Vial) 25 mcg Q1HR ONCE IV Last administered on 02/15/20at 18:54; Start 02/15/20 at 19:00; Stop 02/15/20 at 19:01; Status DC Fentanyl Citrate (Fentanyl 2ml Vial) 25 mcg PRN Q1HR PRN IVP SEVERE PAIN 7-10 Last administered on 02/18/20at 07:53; Start 02/15/20 at 22:30 Cefazolin Sodium/ Dextrose (Ancef 2gm Premix) 2 gm STK-MED ONCE IV ; Start 02/14/20 at 07:00; Stop 02/16/20 at 06:46; Status DC Dexamethasone Sodium Phosphate (Decadron) 4 mg Q6HRS IVP Last administered on 02/18/20at 15:27; Start 02/16/20 at 12:00 Dexamethasone Sodium Phosphate (Decadron) 4 mg 1X ONCE IVP Last administered on 02/16/20at 07:57; Start 02/16/20 at 08:00; Stop 02/16/20 at 08:01; Status DC Dexmedetomidine HCl 400 mcg/ Sodium Chloride 100 ml @ 0 mls/hr CONT PRN IV PER PROTOCOL Last administered on 02/18/20at 09:24; Start 02/16/20 at 08:30 Sodium Chloride 500 ml @ 500 mls/hr 1X PRN PRN IV SEE COMMENTS; Start 02/16/20 at 08:30 Atropine Sulfate (ATROPINE 0.5mg SYRINGE) 0.5 mg PRN Q5MIN PRN IV SEE COMMENTS; Start 02/16/20 at 08:30 Levofloxacin/ Dextrose 100 ml @ 100 mls/hr Q24H IV Last administered on 02/17/20 at 12:11; Start 02/16/20 at 12:00 Albuterol/ Ipratropium (Duoneb) 3 ml RTQID NEB Last administered on 02/18/20at 12:09; Start 02/16/20 at 12:00 Lorazepam (Ativan Inj) 1 mg PRN Q2HRS PRN IVP ANXIETY / AGITATION Last administered on 02/18/20at 15:28; Start 02/18/20 at 09:00 Active Scripts Active Reported Flomax (Tamsulosin Hcl) 0.4 Mg Cap.er.24h 1 Cap PO DAILY Vitals/I & O Vital Sign - Last 24 Hours 02/17/20 02/17/20 02/17/20 02/17/20 17:02 17:12 18:00 18:11 Temp 98.6 98.6 Pulse 50 74 B/P (MAP) 106/97 (100) 116/88 (97) Pulse Ox 99 99 98 99 O2 Delivery BiPAP/CPAP BiPAP/CPAP BiPAP/CPAP BiPAP/CPAP 02/17/20 02/17/20 02/17/20 02/17/20 18:41 19:00 19:02 19:30 Pulse 86 Resp 22 20 20 B/P (MAP) 156/82 (106) Pulse Ox 99 99 99 99 O2 Delivery BiPAP/CPAP BiPAP/CPAP BiPAP/CPAP O2 Flow Rate 50.0 02/17/20 02/17/20 02/17/20 02/17/20 19:46 20:00 20:00 20:00 Pulse 65 B/P (MAP) 132/65 (87) 125/67 (86) Pulse Ox 97 O2 Delivery BiPAP/CPAP Bi-pap O2 Flow Rate 50.0 02/17/20 02/17/20 02/17/20 02/17/20 20:00 21:00 21:03 21:25 Temp 98.5 98.5 Pulse 65 69 74 Resp 18 22 24 20 B/P (MAP) 125/67 (86) 150/76 (100) 160/80 (106) Pulse Ox 98 99 99 97 O2 Delivery BiPAP/CPAP BiPAP/CPAP BiPAP/CPAP BiPAP/CPAP 02/17/20 02/17/20 02/17/20 02/17/20 21:30 21:30 21:45 22:00 Pulse 72 50 53 Resp 20 24 18 18 B/P (MAP) 160/76 (104) 137/66 (89) 129/64 (85) Pulse Ox 98 98 99 98 O2 Delivery BiPAP/CPAP BiPAP/CPAP BiPAP/CPAP 02/17/20 02/17/20 02/17/20 02/17/20 23:00 23:59 23:59 23:59 Temp 98.2 98.2 Pulse 54 78 78 Resp 20 22 B/P (MAP) 117/61 (79) 138/90 (106) 138/80 (99) Pulse Ox 98 96 O2 Delivery BiPAP/CPAP Bi-pap BiPAP/CPAP O2 Flow Rate 50.0 02/18/20 02/18/20 02/18/20 02/18/20 00:07 00:10 00:30 01:00 Pulse 84 Resp 24 22 22 B/P (MAP) 118/60 (79) Pulse Ox 97 97 97 99 O2 Delivery BiPAP/CPAP BiPAP/CPAP BiPAP/CPAP BiPAP/CPAP 02/18/20 02/18/20 02/18/20 02/18/20 02:00 03:00 03:03 03:30 Pulse 56 70 Resp 18 20 18 20 B/P (MAP) 123/60 (81) 149/75 (99) Pulse Ox 97 99 99 99 O2 Delivery BiPAP/CPAP BiPAP/CPAP BiPAP/CPAP BiPAP/CPAP 02/18/20 02/18/20 02/18/20 02/18/20 04:00 04:00 04:00 04:47 Temp 98.2 98.2 Pulse 80 80 Resp 18 B/P (MAP) 142/68 (92) 142/68 (92) Pulse Ox 98 98 O2 Delivery BiPAP/CPAP Bi-pap BiPAP/CPAP O2 Flow Rate 50.0 9/2/02/18/20 02/18/20 02/18/20 05:00 06:00 07:00 07:53 Pulse 50 53 66 Resp 18 18 18 19 B/P (MAP) 122/60 (80) 124/64 (84) 148/72 (97) Pulse Ox 97 99 99 99 O2 Delivery BiPAP/CPAP BiPAP/CPAP BiPAP/CPAP O2 Flow Rate 50.0 02/18/20 02/18/20 02/18/20 02/18/20 08:00 08:00 08:23 08:38 Temp 98.0 98.0 Pulse 78 Resp 18 B/P (MAP) 144/74 (97) Pulse Ox 99 99 98 O2 Delivery BiPAP/CPAP Bi-pap BiPAP/CPAP O2 Flow Rate 50.0 50.0 02/18/20 02/18/20 02/18/20 02/18/20 09:00 10:00 11:00 12:00 Pulse 52 50 70 54 Resp 18 18 18 18 B/P (MAP) 134/62 (86) 124/58 (80) 120/58 (78) 136/68 (90) Pulse Ox 99 99 O2 Delivery BiPAP/CPAP BiPAP/CPAP BiPAP/CPAP BiPAP/CPAP 02/18/20 02/18/20 02/18/20 02/18/20 12:16 13:00 14:00 15:00 Temp 98.0 98.0 Pulse 52 52 60 Resp 18 18 18 B/P (MAP) 126/64 (84) 122/65 (84) 136/86 (103) Pulse Ox 98 99 97 O2 Delivery BiPAP/CPAP BiPAP/CPAP BiPAP/CPAP BiPAP/CPAP 02/18/20 16:00 Temp 98.1 98.1 Pulse 48 Resp 18 B/P (MAP) 145/82 (103) O2 Delivery BiPAP/CPAP Intake and Output 02/17/20 02/17/20 02/18/20 15:00 23:00 07:00 Intake Total 100 ml 0 ml 938 ml Output Total 300 ml 493 ml 938 ml Balance -200 ml -493 ml 0 ml Justifications for Admission Other Justification KELLI JOY MD Feb 18, 2020 16:45
--- NOTE | 2020-02-18 20:05 | NUR ---
Jessy alvarez RN Leveled/Calibrated and Zeroed Arterial line for this RN. Arterial line B/P will be documented hourly in vital sign intervention and Q 4 hours in Arterial intervention to avoid double charting. Addendum: 02/18/20 at 2147 by DOMENICA MACHADO RN Amended: Links added.
--- NOTE | 2020-02-18 22:10 | NUR ---
Patient with increased agitation, scratching and pinching his right leg. Mitt applied to right hand to protect skin. Ativan given per order.
--- NOTE | 2020-02-18 23:30 | NUR ---
Patient resting quietly at this time no agitation or S/S of pain.
[2020-02-19] VITALS (57 sets, daily range): BP systolic 94–178; BP diastolic 56–98
[2020-02-19] MEDS: DEXAMETHASONE SOD PHOS 4 MG/ML VIAL IVP SCH ×5 (00:01→23:50)
[2020-02-19] MEDS: DEXMEDETOMIDINE 400 MCG in IV NORMAL SALINE 100ML 96 ML IV PRN ×5 (00:06→20:45)
[2020-02-19] MEDS: fentaNYL PF VIAL 100 MCG/2 ML VIAL IVP PRN ×4 (01:05→07:57)
--- NOTE | 2020-02-19 01:25 | NUR ---
Patient with increased agitation, Ativan given per order for agitation.
[2020-02-19] MEDS: POTASSIUM CL 20MEQ D5-0.45NACL 1,000 ML IV SCH ×2 (01:30→20:41)
--- NOTE | 2020-02-19 02:07 | NUR ---
Patient still restless/agitated, facial grimacing noted. Fentanyl given for pain. Jessy Wilde hot car charger monitoring Precedex drip and giving boluses as needed.
--- NOTE | 2020-02-19 05:37 | NUR ---
Patient agitated broke soft wrist restraint pulling on it to attempt to remove mask. Ativan SIVP given per order.
--- NOTE | 2020-02-19 06:03 | NUR ---
Patient resting eyes closed.
[2020-02-19] MEDS: PANTOPRAZOLE IV PUSH 40 MG VIAL. IVP SCH (07:38)
[2020-02-19] MEDS: IPRATRPIUM/ALBUTEROL 0.5/2.5MG 3 ML NEBU. NEB SCH ×4 (09:40→20:20)
[2020-02-19 09:49] LABS: BASE EXCESS ABG 0 mmol/L (-3-3); HCO3 ABG 25 mmol/L (21-28); PCO2 ABG 39 mmHg (35-46); PO2 ABG 101 mmHg (65-108); SAT O2 ABG 97 % (92-99)
[2020-02-19 09:51] LABS: FIO2 ABG 45
--- NOTE | 2020-02-19 10:53 | PDOC ---
PULMONARY PROGRESS NOTES DATE: 02/19/20 TIME: 10:50 Subjective remains on BIPAP, FIO2 decreased to 50% sedated due to marked agitation pulled out ventriculostomy tube 02/16 S/P ventricular system 02/15/20 Vitals Vital Signs Date Time Temp Pulse Resp B/P (MAP) Pulse Ox O2 Delivery O2 Flow Rate FiO2 02/19/20 09:41 99 BiPAP/CPAP 02/19/20 08:15 62 18 124/67 (86) 02/19/20 08:00 97.8 97.8 02/18/20 20:05 45.0 General: Lethargic Lungs: Crackles Cardiovascular: S1 Abdomen: Soft Skin: Warm Labs Laboratory Tests Test 02/17/20 11:10 02/18/20 08:50 02/19/20 09:45 White Blood Count 10.2 x10^3/uL (4.0-11.0) Red Blood Count 3.80 x10^6/uL (4.30-5.70) Hemoglobin 11.5 g/dL (13.0-17.5) Hematocrit 34.2 % (39.0-53.0) Mean Corpuscular Volume 90 fL (79-100) Mean Corpuscular Hemoglobin 30 pg (25-35) Mean Corpuscular Hemoglobin Concent 34 g/dL (31-37) Red Cell Distribution Width 13.6 % (11.5-14.5) Platelet Count 172 x10^3/uL (140-400) Neutrophils (%) (Auto) 87 % (31-73) Lymphocytes (%) (Auto) 7 % (24-48) Monocytes (%) (Auto) 6 % (0-9) Eosinophils (%) (Auto) 0 % (0-3) Basophils (%) (Auto) 0 % (0-3) Neutrophils # (Auto) 8.9 x10^3/uL (1.8-7.7) Lymphocytes # (Auto) 0.7 x10^3/uL (1.0-4.8) Monocytes # (Auto) 0.6 x10^3/uL (0.0-1.1) Eosinophils # (Auto) 0.0 x10^3/uL (0.0-0.7) Basophils # (Auto) 0.0 x10^3/uL (0.0-0.2) Segmented Neutrophils % 84 % (35-66) Band Neutrophils % 4 % (0-9) Lymphocytes % 8 % (24-48) Monocytes % 4 % (0-10) Platelet Estimate Adequate (ADEQUATE) Sodium Level 146 mmol/L (136-145) Potassium Level 3.2 mmol/L (3.5-5.1) Chloride Level 115 mmol/L (98-107) Carbon Dioxide Level 23 mmol/L (21-32) Anion Gap 8 (6-14) Blood Urea Nitrogen 28 mg/dL (8-26) Creatinine 0.7 mg/dL (0.7-1.3) Estimated GFR (Cockcroft-Gault) 113.5 Glucose Level 146 mg/dL (70-99) Calcium Level 6.2 mg/dL (8.5-10.1) O2 Saturation 96 % (92-99) 97 % (92-99) Arterial Blood pH 7.42 (7.35-7.45) 7.42 (7.35-7.45) Arterial Blood pCO2 at Patient Temp 39 mmHg (35-46) 39 mmHg (35-46) Arterial Blood pO2 at Patient Temp 81 mmHg (65-108) 101 mmHg (65-108) Arterial Blood HCO3 24 mmol/L (21-28) 25 mmol/L (21-28) Arterial Blood Base Excess 0 mmol/L (-3-3) 0 mmol/L (-3-3) FiO2 50 45 Laboratory Tests Test 02/19/20 09:45 O2 Saturation 97 % (92-99) Arterial Blood pH 7.42 (7.35-7.45) Arterial Blood pCO2 at Patient Temp 39 mmHg (35-46) Arterial Blood pO2 at Patient Temp 101 mmHg (65-108) Arterial Blood HCO3 25 mmol/L (21-28) Arterial Blood Base Excess 0 mmol/L (-3-3) FiO2 45 Medications Active Scripts Medications Dose Route/Sig Max Daily Dose Days Date Category Flomax (Tamsulosin Hcl) 0.4 Mg Cap.er.24h 1 Cap PO DAILY 02/14/20 Reported Comments CXR IMPRESSION: 1. Life-support devices as above. 2. Bibasilar heterogeneous opacities, which could represent subsegmental atelectasis, infection, or aspiration. Impression . IMPRESSION: 1. Acute respiratory failure secondary to cerebrovascular accident., Right lower lobe atelectasis, possible aspiration pneumonia 2. Hypertensive crisis. 3. 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 4. Status post ventriculostomy. 5. Intracerebral bleeding. 6. Encephalopathy secondary to above. 7. History of hypertension. 8. History of previous cerebrovascular accident. 9. Tobacco dependent. 10. Abnormal chest x-ray Plan . BiPAP due to need for sedation wean FIO2 as tolerated Empiric antibiotic dexamethasone repeat cxr today Follow neurosurgery and neurology recs Cont. aggressive treatment of HTN, off of nicardipine DVT/GI PPX Pulmonary status depends on neuro improvement d/w Dr Vásquez. If neuro status does not improve by end of week, consider elective trach Total cumulative critical care time of 30 minutes Spoke with RN/RT ABRAN BARAKAT MD Feb 19, 2020 10:53
--- NOTE | 2020-02-19 10:54 | NUR ---
SS following up with discharge planning. SS reviewed pt chart and discussed with pt RN. Pt on BIPAP and IV Levofloxacin. Per RN, drain not being replaced. Physicians working towards less sedation. SS will continue to follow for discharge planning.
--- NOTE | 2020-02-19 11:11 | PDOC ---
[facility] PROGRESS NOTE Date of Service DOS: DATE: 02/19/20 TIME: 11:11 Chief Complaint Chief Complaint Intraparenchymal hemorrhage of brain (thalamic hemorrhage with intraventricular rupture) Acute intraparenchymal hematoma centered within the right thalamus with a volume of approximately 14 cc. Intraventricular extension of hemorrhage filling much of the right lateral ventricle and extending downwards through the fourth ventricle.hematoma and associated edema exert mass effect on the foramen of Prieto and a portion of the third ventricle. dilatation of the right lateral ventricle temporal horn developing hydrocephalus. 02/13 ctRight frontal approach ventriculostomy . Stable ventricular configuration. Stable right basal ganglia acute intraparenchymal hemorrhage with intraventricular extension. Mass effect with sulcal effacement and increased suprasellar cistern effacement. Acute hypoxic resp failure Prior old stroke Hyperlipidemia Tobacco abuse Dense left hemiparesis History of Present Illness History of Present Illness 02/19/2020 Patient seen and examined in the ICU Yesterday pulled out his [employer] INSIDE pressure monitor and we still have it out for now The CAT scan repeat of the head yesterday showed decrease size of the bleed I discussed the case with case hardener I reviewed the chart Discussed with RN He remains critically ill 02/18/2020 Patient seen and examined in the ICU He has mitts on but somehow was able to squeeze onto his [employer] INSIDE monitor tube and pulled out I discussed case with the case hardener and RN Chart reviewed 02/17/2020 Patient seen and examined in the ICU He is on BiPAP His daughter is present Discussed with RN Discussed with case management Chart reviewed Vitals/I&O Vitals/I&O: Vital Signs Date Time Temp Pulse Resp B/P (MAP) Pulse Ox O2 Delivery O2 Flow Rate FiO2 02/19/20 10:45 58 18 124/66 (85) 100 02/19/20 09:41 BiPAP/CPAP 02/19/20 08:30 97.6 97.6 02/19/20 08:27 45.0 I & O 02/18/20 02/18/20 02/19/20 15:00 23:00 07:00 Intake Total 0 ml 802 ml Output Total 900 ml 725 ml 450 ml Balance -900 ml 77 ml -450 ml Physical Exam General: Other (Sedated) Heart: Regular rate Lungs: Crackles Abdomen: Normal bowel sounds Extremities: No cyanosis Labs Labs: Laboratory Tests Test 02/19/20 09:45 O2 Saturation 97 % (92-99) Arterial Blood pH 7.42 (7.35-7.45) Arterial Blood pCO2 at Patient Temp 39 mmHg (35-46) Arterial Blood pO2 at Patient Temp 101 mmHg (65-108) Arterial Blood HCO3 25 mmol/L (21-28) Arterial Blood Base Excess 0 mmol/L (-3-3) FiO2 45 Assessment and Plan Assessmemt and Plan Problems Medical Problems: (1) Intraparenchymal hemorrhage of brain Status: Intraparenchymal hemorrhage of brain (thalamic hemorrhage with intraventricular rupture) Acute intraparenchymal hematoma centered within the right thalamus with a volume of approximately 14 cc. Intraventricular extension of hemorrhage filling much of the right lateral ventricle and extending downwards through the fourth ventricle.hematoma and associated edema exert mass effect on the foramen of Prieto and a portion of the third ventricle. dilatation of the right lateral ventricle temporal horn developing hydrocephalus. 02/13 ctRight frontal approach ventriculostomy . Stable ventricular configuration. Stable right basal ganglia acute intraparenchymal hemorrhage with intraventricular extension. Mass effect with sulcal effacement and increased suprasellar cistern effacement. Acute hypoxic resp failure Prior old stroke Hyperlipidemia Tobacco abuse Dense left hemiparesis Plan ICU monitoring Trend serial CT of head periodically to check status of the bleed He might need tracheostomy per pulmonary Mitts for patient safety He is probably going to need acute rehab or long-term acute care Trend labs Trying to resume home meds when possible DVT prophylaxis Full code He is critically ill Long-term prognosis guarded CC time 32 minutes Per pulmonary please see below BiPAP due to need for sedation wean FIO2 as tolerated Empiric antibiotic dexamethasone repeat cxr today Follow neurosurgery and neurology recs Cont. aggressive treatment of HTN, off of nicardipine DVT/GI PPX Pulmonary status depends on neuro improvement d/w Dr Vásquez. If neuro status does not improve by end of week, consider elective trach Comment Review of Relevant I have reviewed the following items faraz (where applicable) has been applied. Justifications for Admission Other Justification ELENI PICKARD III DO Feb 19, 2020 11:11
--- NOTE | 2020-02-19 12:20 | PDOC ---
PROGRESS NOTES Date of Service DATE: 02/19/20 TIME: 12:18 Assessment Problems Medical Problems: (1) Intraparenchymal hemorrhage of brain Status: Acute Pulled out ICP monitor, 02/17 Right thalamic hemorrhage with intraventricular rupture. He developed acute hydrocephalus and required an emergent EVD Acute respiratory failure, extubated. Dense left hemiparesis. Just taken off BiPAP, still on Cardene and Precedex Plan Monitor in intensive care unit. No need for prophylactic anticonvulsants Subjective None Objective Vital Signs Date Time Temp Pulse Resp B/P (MAP) Pulse Ox O2 Delivery O2 Flow Rate FiO2 02/19/20 11:21 98 BiPAP/CPAP 02/19/20 10:45 58 18 124/66 (85) 02/19/20 08:30 97.6 97.6 02/19/20 08:27 45.0 Intake and Output 02/19/20 07:00 Intake Total 802 ml Output Total 2075 ml Balance -1273 ml Intake Oral 0 ml IV Total 802 ml Output Urine Total 2075 ml PHYSICAL EXAM Alert, moves right side possibly to commands, nonsense speech. PERRL. EOMI. CN: no focal findings. Muscle tone:normal in left arm, increased in left leg Muscle strength: Left hemiparesis DTR: 2+ Plantar reflex: extensor on the left Gait: not examined in bed. Sensory exam: no abnormal findings. No cerebellar signs elicited. Review of Relevant I have reviewed the following items faraz (where applicable) has been applied. Labs Laboratory Tests Test 02/18/20 08:50 02/19/20 09:45 O2 Saturation 96 % (92-99) 97 % (92-99) Arterial Blood pH 7.42 (7.35-7.45) 7.42 (7.35-7.45) Arterial Blood pCO2 at Patient Temp 39 mmHg (35-46) 39 mmHg (35-46) Arterial Blood pO2 at Patient Temp 81 mmHg (65-108) 101 mmHg (65-108) Arterial Blood HCO3 24 mmol/L (21-28) 25 mmol/L (21-28) Arterial Blood Base Excess 0 mmol/L (-3-3) 0 mmol/L (-3-3) FiO2 50 45 Laboratory Tests Test 02/19/20 09:45 O2 Saturation 97 % (92-99) Arterial Blood pH 7.42 (7.35-7.45) Arterial Blood pCO2 at Patient Temp 39 mmHg (35-46) Arterial Blood pO2 at Patient Temp 101 mmHg (65-108) Arterial Blood HCO3 25 mmol/L (21-28) Arterial Blood Base Excess 0 mmol/L (-3-3) FiO2 45 Medications Current Medications Nicardipine HCl 50 mg/Sodium Chloride 250 ml @ 12.5 mls/hr CONT PRN IV SEE I/O RECORD Last administered on 02/19/20at 08:41; Start 02/14/20 at 03:30 Ondansetron HCl (Zofran) 8 mg 1X ONCE IVP Last administered on 02/14/20at 03:48; Start 02/14/20 at 04:00; Stop 02/14/20 at 04:01; Status DC Metoclopramide HCl (Reglan Vial) 10 mg STK-MED ONCE .ROUTE ; Start 02/14/20 at 04:00; Stop 02/14/20 at 04:00; Status DC Diphenhydramine HCl (Benadryl) 50 mg STK-MED ONCE .ROUTE ; Start 02/14/20 at 04:02; Stop 02/14/20 at 04:02; Status DC Hydromorphone HCl (Dilaudid) 2 mg STK-MED ONCE .ROUTE ; Start 02/14/20 at 04:02; Stop 02/14/20 at 04:03; Status DC Lidocaine HCl (Lidocaine 1% 20ml Vial) 20 ml STK-MED ONCE .ROUTE ; Start 02/14/20 at 04:11; Stop 02/14/20 at 04:12; Status DC Ondansetron HCl (Zofran) 4 mg PRN Q8HRS PRN IV NAUSEA/VOMITING 1ST CHOICE; Start 02/14/20 at 04:45; Stop 02/15/20 at 04:44; Status DC Morphine Sulfate (Morphine Sulfate) 4 mg PRN Q2HR PRN IV SEVERE PAIN 7-10; S tart 02/14/20 at 04:45; Stop 02/15/20 at 04:44; Status DC Rocuronium [place] (Zemuron) 100 mg 1X ONCE IV Last administered on 02/14/20at 04:56; Start 02/14/20 at 05:00; Stop 02/14/20 at 05:01; Status DC Etomidate (Amidate) 20 mg 1X ONCE IV Last administered on 02/14/20at 04:56; Start 02/14/20 at 05:00; Stop 02/14/20 at 05:01; Status DC Fentanyl Citrate (Fentanyl 2ml Vial) 100 mcg 1X ONCE IVP Last administered on 02/14/20at 04:55; Start 02/14/20 at 05:00; Stop 02/14/20 at 05:01; Status DC Propofol (Diprivan) 200 mg STK-MED ONCE IV ; Start 02/14/20 at 05:02; Stop 02/14/20 at 05:03; Status DC Propofol 50 ml @ As Directed STK-MED ONCE IV ; Start 02/14/20 at 05:03; Stop 02/14/20 at 05:03; Status DC Propofol (Diprivan) 200 mg 1X ONCE IV ; Start 02/14/20 at 05:30; Stop 02/14/20 at 05:31; Status DC Vancomycin HCl 250 ml @ 250 mls/hr PREOP PRN PRN IV PREOP Last administered on 02/14/20at 06:48; Start 02/14/20 at 06:00; Stop 02/15/20 at 05:59; Status DC Propofol 100 ml @ 0 mls/hr CONT PRN IV SEE I/O RECORD Last administered on 02/14/20at 11:30; Start 02/14/20 at 06:30 Fentanyl Citrate (Fentanyl 2ml Vial) 50 mcg 1X ONCE IVP Last administered on 02/14/20at 06:48; Start 02/14/20 at 07:00; Stop 02/14/20 at 07:01; Status DC Lidocaine HCl (Xylocaine-Mpf 1% 2ml Vial) 2 ml STK-MED ONCE .ROUTE ; Start 02/14/20 at 06:43; Stop 02/14/20 at 06:43; Status DC Fentanyl Citrate (Fentanyl 2ml Vial) 50 mcg 1X ONCE IVP Last administered on 02/14/20at 07:23; Start 02/14/20 at 07:30; Stop 02/14/20 at 07:31; Status DC Fentanyl Citrate 30 ml @ 2.5 mls/hr CONT PRN IV SEE PROTOCOL Last administered on 02/15/20at 09:14; Start 02/14/20 at 07:30 Fentanyl Citrate (Fentanyl 2ml Vial) 25 mcg PRN Q1HR PRN IV SEE COMMENTS; Start 02/14/20 at 07:30; Stop 02/15/20 at 18:51; Status DC Fentanyl Citrate (Fentanyl 2ml Vial) 50 mcg PRN Q1HR PRN IV SEE COMMENTS; Start 02/14/20 at 07:30; Stop 02/15/20 at 18:51; Status DC Famotidine (Pepcid Vial) 20 mg BID IVP ; Start 02/14/20 at 21:00; Stop 02/14/20 at 16:18; Status DC Potassium Chloride/Dextrose/ Sod Cl 1,000 ml @ 50 mls/hr Q20H IV Last administered on 02/19/20at 01:30; Start 02/14/20 at 11:30 Pantoprazole Sodium (PROTONIX VIAL for IV PUSH) 40 mg DAILYAC IVP Last administered on 02/19/20at 07:38; Start 02/15/20 at 07:30 Vancomycin HCl 1 gm/Sodium Chloride 250 ml @ 250 mls/hr Q12H IV Last administered on 02/17/20at 04:35; Start 02/15/20 at 17:00; Stop 02/17/20 at 07:34; Status DC Vancomycin HCl (Vanco Per Pharmacy) 1 each PRN DAILY PRN MC SEE COMMENTS; Start 02/15/20 at 16:15; Stop 02/17/20 at 07:35; Status DC Fentanyl Citrate (Fentanyl 2ml Vial) 25 mcg Q1HR ONCE IV Last administered on 02/15/20at 18:54; Start 02/15/20 at 19:00; Stop 02/15/20 at 19:01; Status DC Fentanyl Citrate (Fentanyl 2ml Vial) 25 mcg PRN Q1HR PRN IVP SEVERE PAIN 7-10 Last administered on 02/19/20at 07:57; Start 02/15/20 at 22:30 Cefazolin Sodium/ Dextrose (Ancef 2gm Premix) 2 gm STK-MED ONCE IV ; Start 02/14/20 at 07:00; Stop 02/16/20 at 06:46; Status DC Dexamethasone Sodium Phosphate (Decadron) 4 mg Q6HRS IVP Last administered on 02/19/20at 06:10; Start 02/16/20 at 12:00 Dexamethasone Sodium Phosphate (Decadron) 4 mg 1X ONCE IVP Last administered on 02/16/20at 07:57; Start 02/16/20 at 08:00; Stop 02/16/20 at 08:01; Status DC Dexmedetomidine HCl 400 mcg/ Sodium Chloride 100 ml @ 0 mls/hr CONT PRN IV PER PROTOCOL Last administered on 02/19/20at 10:35; Start 02/16/20 at 08:30 Sodium Chloride 500 ml @ 500 mls/hr 1X PRN PRN IV SEE COMMENTS; Start 02/16/20 at 08:30 Atropine Sulfate (ATROPINE 0.5mg SYRINGE) 0.5 mg PRN Q5MIN PRN IV SEE COMMENTS; Start 02/16/20 at 08:30 Levofloxacin/ Dextrose 100 ml @ 100 mls/hr Q24H IV Last administered on 02/18/20at 12:00; Start 02/16/20 at 12:00 Albuterol/ Ipratropium (Duoneb) 3 ml RTQID NEB Last administered on 02/19/20at 11:21; Start 02/16/20 at 12:00 Lorazepam (Ativan Inj) 1 mg PRN Q2HRS PRN IVP ANXIETY / AGITATION Last administered on 02/19/20at 07:34; Start 02/18/20 at 09:00 Active Scripts Active Reported Flomax (Tamsulosin Hcl) 0.4 Mg Cap.er.24h 1 Cap PO DAILY Vitals/I & O Vital Sign - Last 24 Hours 02/18/20 02/18/20 02/18/20 02/18/20 13:00 14:00 15:00 16:00 Temp 98.0 98.0 Pulse 52 52 60 68 Resp 18 18 18 B/P (MAP) 126/64 (84) 122/65 (84) 136/86 (103) Pulse Ox 99 97 O2 Delivery BiPAP/CPAP BiPAP/CPAP BiPAP/CPAP 02/18/20 02/18/20 02/18/20 02/18/20 16:00 16:00 16:58 17:00 Temp 98.1 98.1 Pulse 48 60 Resp 18 18 B/P (MAP) 145/82 (103) 135/80 (98) Pulse Ox 99 97 O2 Delivery Bi-pap BiPAP/CPAP BiPAP/CPAP BiPAP/CPAP O2 Flow Rate 50.0 02/18/20 02/18/20 02/18/2020 18:00 19:00 20:05 20:05 Pulse 55 54 48 Resp 18 16 B/P (MAP) 133/80 (97) 130/78 (95) 134/72 (92) Pulse Ox 97 97 O2 Delivery BiPAP/CPAP BiPAP/CPAP Bi-pap O2 Flow Rate 45.0 02/18/20 02/18/20 02/18/20 02/18/20 20:05 20:05 20:52 21:00 Temp 97.5 97.5 Pulse 48 58 Resp 16 16 B/P (MAP) 134/72 (92) 120/66 (84) Pulse Ox 97 98 98 O2 Delivery BiPAP/CPAP BiPAP/CPAP BiPAP/CPAP O2 Flow Rate 45.0 02/18/20 02/18/20 02/18/20 02/18/20 22:00 23:00 23:00 23:30 Pulse 86 78 Resp 16 16 16 B/P (MAP) 154/88 (110) 154/88 (110) Pulse Ox 98 98 97 98 O2 Delivery BiPAP/CPAP BiPAP/CPAP BiPAP/CPAP 02/19/20 02/19/20 02/19/20 02/19/20 00:00 00:00 00:00 00:25 Temp 97.7 97.7 Pulse 50 50 Resp 16 B/P (MAP) 130/72 (91) 128/72 (90) Pulse Ox 98 98 O2 Delivery Bi-pap BiPAP/CPAP BiPAP/CPAP 02/19/20 02/19/20 02/19/20 02/19/20 01:00 01:05 01:35 02:00 Pulse 76 80 Resp 24 24 16 24 B/P (MAP) 158/90 (112) 178/98 (124) Pulse Ox 98 98 98 98 O2 Delivery BiPAP/CPAP BiPAP/CPAP BiPAP/CPAP 02/19/20 02/19/20 02/19/20 02/19/20 02:07 02:37 03:00 03:55 Pulse 44 Resp 22 20 18 B/P (MAP) 146/88 (107) Pulse Ox 99 99 99 O2 Delivery BiPAP/CPAP BiPAP/CPAP Bi-pap 02/19/20 02/19/20 02/19/20 02/19/20 04:00 04:00 04:37 05:00 Temp 98.2 98.2 Pulse 44 44 44 Resp 18 18 B/P (MAP) 152/76 (101) 152/76 (101) 156/88 (110) Pulse Ox 99 98 99 O2 Delivery BiPAP/CPAP BiPAP/CPAP BiPAP/CPAP 02/19/20 02/19/20 02/19/20 02/19/20 05:10 05:16 05:20 05:25 Pulse 88 90 Resp 20 18 20 B/P (MAP) 172/90 (117) 175/90 (118) 137/81 (99) Pulse Ox 98 98 98 O2 Delivery BiPAP/CPAP Ventilator BiPAP/CPAP 02/19/20 02/19/20 02/19/20 02/19/20 05:25 05:35 05:40 05:45 Pulse 80 88 66 62 Resp 20 20 16 18 B/P (MAP) 144/85 (104) 168/88 (114) 132/78 (96) 121/62 (81) Pulse Ox 97 98 98 97 O2 Delivery BiPAP/CPAP BiPAP/CPAP BiPAP/CPAP BiPAP/CPAP 02/19/20 02/19/20 02/19/20 02/19/20 05:46 06:00 07:00 07:15 Pulse 56 56 54 Resp 18 18 18 18 B/P (MAP) 122/64 (83) 94/80 (85) 154/82 (106) Pulse Ox 98 98 98 98 O2 Delivery BiPAP/CPAP 02/19/20 02/19/20 02/19/20 02/19/20 07:30 07:45 07:57 08:00 Pulse 92 82 62 Resp 18 18 16 B/P (MAP) 154/80 (104) 150/76 (100) 148/64 (92) Pulse Ox 98 98 98 O2 Delivery BiPAP/CPAP 02/19/20 02/19/20 02/19/20 02/19/20 08:00 08:00 08:15 08:27 Temp 97.8 97.8 Pulse 82 62 Resp 18 18 16 B/P (MAP) 130/66 (87) 124/67 (86) Pulse Ox 98 100 99 O2 Delivery Bi-pap BiPAP/CPAP O2 Flow Rate 45.0 02/19/20 02/19/20 02/19/20 02/19/20 08:30 08:45 09:00 09:15 Temp 97.6 97.6 Pulse 62 62 62 62 Resp 18 18 18 18 B/P (MAP) 132/66 (88) 134/68 (90) 132/68 (89) 124/67 (86) Pulse Ox 100 100 100 100 02/19/20 02/19/20 02/19/20 02/19/20 09:30 09:41 09:45 10:00 Pulse 62 62 62 Resp 18 18 18 B/P (MAP) 96/56 (69) 128/64 (85) 132/66 (88) Pulse Ox 100 99 100 100 O2 Delivery BiPAP/CPAP 02/19/20 02/19/20 02/19/20 02/19/20 10:15 10:30 10:45 11:21 Pulse 56 58 58 Resp 18 18 18 B/P (MAP) 130/66 (87) 128/64 (85) 124/66 (85) Pulse Ox 100 100 100 98 O2 Delivery BiPAP/CPAP Intake and Output 02/18/20 02/18/20 02/19/20 15:00 23:00 07:00 Intake Total 0 ml 802 ml Output Total 900 ml 725 ml 450 ml Balance -900 ml 77 ml -[address] Head without IV contrast, 02/17 BRAIN PARENCHYMA: The right frontal ventriculostomy catheter has been removed. The right thalamic intraparenchymal acute hemorrhage remains present with intraventricular extension, similar in size to prior measuring approximately 3.4 x 2.8 x 3.9 cm in width by AP diameter by craniocaudal extent. No new intraparenchymal hemorrhage and no acute infarct. Some blood is present along the palmar tract of the ventriculostomy catheter. VENTRICLES & EXTRA-AXIAL SPACES: Enlargement of the lateral ventricles is improved, with less dense blood in the third and lateral ventricles, best appreciated in the occipital horn of the right lateral ventricle. The cisterns show residual mild effacement of the right lateral ambient cistern but overall are patent. No crowding of the foramen magnum. No new pathologic extra-axial fluid collection or mass. ORBITS: orbits are unremarkable. SINUSES: Visualized paranasal sinuses and mastoid air cells are clear. The frontal sinuses are hypoplastic. OSSEOUS & SOFT TISSUES: Calvarium and skull base are otherwise intact. IMPRESSION: Right thalamic intraparenchymal hemorrhage with intraventricular extension showing slight interval decrease in intraventricular blood and associated findings of obstructive hydrocephalus. No new acute superimposed intracranial pathology shown status post interval removal of the right frontal approach ventriculostomy catheter. Justicifation of Admission Dx: Justifications for Admission: Justification of Admission Dx: Yes Acute Hemorrhagic Stroke: Acute Hemorrhagic Stroke TEE FRANCIS MD Feb 19, 2020 12:20
--- NOTE | 2020-02-19 14:40 | PDOC ---
PROGRESS NOTES Date of Service DATE: 02/19/20 TIME: 1015 Subjective Subjective seen and examined at 1015 on Bipap sedated with Precedex gtt RN reports intermittent agitation will open eyes left hemiparesis pulled out EVD 02/[address] yesterday showed decreasing size of intraventricular hemorrhage and smaller ventricular size Plan: to wean from Bipap as tolerated repeat CT head tomorrow morning SCDs D/W Dr. Rocha Objective Objective Vital Signs Date Time Temp Pulse Resp B/P (MAP) Pulse Ox O2 Delivery O2 Flow Rate FiO2 02/19/20 12:00 Nasal Cannula 5.0 02/19/20 12:00 62 138/65 (89) 02/19/20 11:21 98 02/19/20 10:45 18 02/19/20 08:30 97.6 97.6 Intake and Output 02/19/20 07:00 Intake Total 802 ml Output Total 2075 ml Balance -1273 ml Intake Oral 0 ml IV Total 802 ml Output Urine Total 2075 ml Assessment Assessment Problems Medical Problems: (1) Intraparenchymal hemorrhage of brain Status: Acute Comment Review of Relevant I have reviewed the following items faraz (where applicable) has been applied. Labs Laboratory Tests Test 02/18/20 08:50 02/19/20 09:45 O2 Saturation 96 % (92-99) 97 % (92-99) Arterial Blood pH 7.42 (7.35-7.45) 7.42 (7.35-7.45) Arterial Blood pCO2 at Patient Temp 39 mmHg (35-46) 39 mmHg (35-46) Arterial Blood pO2 at Patient Temp 81 mmHg (65-108) 101 mmHg (65-108) Arterial Blood HCO3 24 mmol/L (21-28) 25 mmol/L (21-28) Arterial Blood Base Excess 0 mmol/L (-3-3) 0 mmol/L (-3-3) FiO2 50 45 Laboratory Tests Test 02/19/20 09:45 O2 Saturation 97 % (92-99) Arterial Blood pH 7.42 (7.35-7.45) Arterial Blood pCO2 at Patient Temp 39 mmHg (35-46) Arterial Blood pO2 at Patient Temp 101 mmHg (65-108) Arterial Blood HCO3 25 mmol/L (21-28) Arterial Blood Base Excess 0 mmol/L (-3-3) FiO2 45 Medications Current Medications Nicardipine HCl 50 mg/Sodium Chloride 250 ml @ 12.5 mls/hr CONT PRN IV SEE I/O RECORD Last administered on 02/19/20at 08:41; Start 02/14/20 at 03:30 Ondansetron HCl (Zofran) 8 mg 1X ONCE IVP Last administered on 02/14/20at 03:48; Start 02/14/20 at 04:00; Stop 02/14/20 at 04:01; Status DC Metoclopramide HCl (Reglan Vial) 10 mg STK-MED ONCE .ROUTE ; Start 02/14/20 at 04:00; Stop 02/14/20 at 04:00; Status DC Diphenhydramine HCl (Benadryl) 50 mg STK-MED ONCE .ROUTE ; Start 02/14/20 at 04:02; Stop 02/14/20 at 04:02; Status DC Hydromorphone HCl (Dilaudid) 2 mg STK-MED ONCE .ROUTE ; Start 02/14/20 at 04:02; Stop 02/14/20 at 04:03; Status DC Lidocaine HCl (Lidocaine 1% 20ml Vial) 20 ml STK-MED ONCE .ROUTE ; Start 02/14/20 at 04:11; Stop 02/14/20 at 04:12; Status DC Ondansetron HCl (Zofran) 4 mg PRN Q8HRS PRN IV NAUSEA/VOMITING 1ST CHOICE; Start 02/14/20 at 04:45; Stop 02/15/20 at 04:44; Status DC Morphine Sulfate (Morphine Sulfate) 4 mg PRN Q2HR PRN IV SEVERE PAIN 7-10; S tart 02/14/20 at 04:45; Stop 02/15/20 at 04:44; Status DC Rocuronium [place] (Zemuron) 100 mg 1X ONCE IV Last administered on 02/14/20at 04:56; Start 02/14/20 at 05:00; Stop 02/14/20 at 05:01; Status DC Etomidate (Amidate) 20 mg 1X ONCE IV Last administered on 02/14/20at 04:56; Start 02/14/20 at 05:00; Stop 02/14/20 at 05:01; Status DC Fentanyl Citrate (Fentanyl 2ml Vial) 100 mcg 1X ONCE IVP Last administered on 02/14/20at 04:55; Start 02/14/20 at 05:00; Stop 02/14/20 at 05:01; Status DC Propofol (Diprivan) 200 mg STK-MED ONCE IV ; Start 02/14/20 at 05:02; Stop 02/14/20 at 05:03; Status DC Propofol 50 ml @ As Directed STK-MED ONCE IV ; Start 02/14/20 at 05:03; Stop 02/14/20 at 05:03; Status DC Propofol (Diprivan) 200 mg 1X ONCE IV ; Start 02/14/20 at 05:30; Stop 02/14/20 at 05:31; Status DC Vancomycin HCl 250 ml @ 250 mls/hr PREOP PRN PRN IV PREOP Last administered on 02/14/20at 06:48; Start 02/14/20 at 06:00; Stop 02/15/20 at 05:59; Status DC Propofol 100 ml @ 0 mls/hr CONT PRN IV SEE I/O RECORD Last administered on 02/14/20at 11:30; Start 02/14/20 at 06:30 Fentanyl Citrate (Fentanyl 2ml Vial) 50 mcg 1X ONCE IVP Last administered on 02/14/20at 06:48; Start 02/14/20 at 07:00; Stop 02/14/20 at 07:01; Status DC Lidocaine HCl (Xylocaine-Mpf 1% 2ml Vial) 2 ml STK-MED ONCE .ROUTE ; Start 02/14/20 at 06:43; Stop 02/14/20 at 06:43; Status DC Fentanyl Citrate (Fentanyl 2ml Vial) 50 mcg 1X ONCE IVP Last administered on 02/14/20at 07:23; Start 02/14/20 at 07:30; Stop 02/14/20 at 07:31; Status DC Fentanyl Citrate 30 ml @ 2.5 mls/hr CONT PRN IV SEE PROTOCOL Last administered on 02/15/20at 09:14; Start 02/14/20 at 07:30 Fentanyl Citrate (Fentanyl 2ml Vial) 25 mcg PRN Q1HR PRN IV SEE COMMENTS; Start 02/14/20 at 07:30; Stop 02/15/20 at 18:51; Status DC Fentanyl Citrate (Fentanyl 2ml Vial) 50 mcg PRN Q1HR PRN IV SEE COMMENTS; Start 02/14/20 at 07:30; Stop 02/15/20 at 18:51; Status DC Famotidine (Pepcid Vial) 20 mg BID IVP ; Start 02/14/20 at 21:00; Stop 02/14/20 at 16:18; Status DC Potassium Chloride/Dextrose/ Sod Cl 1,000 ml @ 50 mls/hr Q20H IV Last administered on 02/19/20at 01:30; Start 02/14/20 at 11:30 Pantoprazole Sodium (PROTONIX VIAL for IV PUSH) 40 mg DAILYAC IVP Last administered on 02/19/20at 07:38; Start 02/15/20 at 07:30 Vancomycin HCl 1 gm/Sodium Chloride 250 ml @ 250 mls/hr Q12H IV Last administered on 02/17/20at 04:35; Start 02/15/20 at 17:00; Stop 02/17/20 at 07:34; Status DC Vancomycin HCl (Vanco Per Pharmacy) 1 each PRN DAILY PRN MC SEE COMMENTS; Start 02/15/20 at 16:15; Stop 02/17/20 at 07:35; Status DC Fentanyl Citrate (Fentanyl 2ml Vial) 25 mcg Q1HR ONCE IV Last administered on 02/15/20at 18:54; Start 02/15/20 at 19:00; Stop 02/15/20 at 19:01; Status DC Fentanyl Citrate (Fentanyl 2ml Vial) 25 mcg PRN Q1HR PRN IVP SEVERE PAIN 7-10 Last administered on 02/19/20at 07:57; Start 02/15/20 at 22:30 Cefazolin Sodium/ Dextrose (Ancef 2gm Premix) 2 gm STK-MED ONCE IV ; Start 02/14/20 at 07:00; Stop 02/16/20 at 06:46; Status DC Dexamethasone Sodium Phosphate (Decadron) 4 mg Q6HRS IVP Last administered on 02/19/20at 12:43; Start 02/16/20 at 12:00 Dexamethasone Sodium Phosphate (Decadron) 4 mg 1X ONCE IVP Last administered on 02/16/20at 07:57; Start 02/16/20 at 08:00; Stop 02/16/20 at 08:01; Status DC Dexmedetomidine HCl 400 mcg/ Sodium Chloride 100 ml @ 0 mls/hr CONT PRN IV PER PROTOCOL Last administered on 02/19/20at 10:35; Start 02/16/20 at 08:30 Sodium Chloride 500 ml @ 500 mls/hr 1X PRN PRN IV SEE COMMENTS; Start 02/16/20 at 08:30 Atropine Sulfate (ATROPINE 0.5mg SYRINGE) 0.5 mg PRN Q5MIN PRN IV SEE COMMENTS; Start 02/16/20 at 08:30 Levofloxacin/ Dextrose 100 ml @ 100 mls/hr Q24H IV Last administered on 02/19/20at 12:43; Start 02/16/20 at 12:00 Albuterol/ Ipratropium (Duoneb) 3 ml RTQID NEB Last administered on 02/19/20at 11:21; Start 02/16/20 at 12:00 Lorazepam (Ativan Inj) 1 mg PRN Q2HRS PRN IVP ANXIETY / AGITATION Last administered on 02/19/20at 07:34; Start 02/18/20 at 09:00 Active Scripts Active Reported Flomax (Tamsulosin Hcl) 0.4 Mg Cap.er.24h 1 Cap PO DAILY Vitals/I & O Vital Sign - Last 24 Hours 02/18/20 02/18/20 02/18/20 02/18/20 15:00 16:00 16:00 16:00 Temp 98.1 98.1 Pulse 60 68 48 Resp 18 18 B/P (MAP) 136/86 (103) 145/82 (103) O2 Delivery BiPAP/CPAP Bi-pap BiPAP/CPAP O2 Flow Rate 50.0 02/18/20 02/18/20 02/18/20 02/18/20 16:58 17:00 18:00 19:00 Pulse 60 55 54 Resp 18 18 16 B/P (MAP) 135/80 (98) 133/80 (97) 130/78 (95) Pulse Ox 99 97 97 97 O2 Delivery BiPAP/CPAP BiPAP/CPAP BiPAP/CPAP BiPAP/CPAP 02/18/20 02/18/20 02/18/20 02/18/20 20:05 20:05 20:05 20:05 Temp 97.5 97.5 Pulse 48 48 Resp 16 B/P (MAP) 134/72 (92) 134/72 (92) Pulse Ox 97 O2 Delivery Bi-pap BiPAP/CPAP O2 Flow Rate 45.0 45.0 02/18/20 02/18/20 02/18/20 02/18/20 20:52 21:00 22:00 23:00 Pulse 58 86 Resp 16 16 B/P (MAP) 120/66 (84) 154/88 (110) Pulse Ox 98 98 98 98 O2 Delivery BiPAP/CPAP BiPAP/CPAP BiPAP/CPAP 02/18/20 02/18/20 02/19/20 02/19/20 23:00 23:30 00:00 00:00 Pulse 78 50 Resp 16 16 B/P (MAP) 154/88 (110) 130/72 (91) Pulse Ox 97 98 O2 Delivery BiPAP/CPAP BiPAP/CPAP Bi-pap 02/19/20 02/19/20 02/19/20 02/19/20 00:00 00:25 01:00 01:05 Temp 97.7 97.7 Pulse 50 76 Resp 16 24 24 B/P (MAP) 128/72 (90) 158/90 (112) Pulse Ox 98 98 98 98 O2 Delivery BiPAP/CPAP BiPAP/CPAP BiPAP/CPAP 02/19/20 02/19/20 02/19/20 02/19/20 01:35 02:00 02:07 02:37 Pulse 80 Resp 16 24 22 20 B/P (MAP) 178/98 (124) Pulse Ox 98 98 99 99 O2 Delivery BiPAP/CPAP BiPAP/CPAP BiPAP/CPAP 02/19/20 02/19/20 02/19/20 02/19/20 03:00 03:55 04:00 04:00 Temp 98.2 98.2 Pulse 44 44 44 Resp 18 18 B/P (MAP) 146/88 (107) 152/76 (101) 152/76 (101) Pulse Ox 99 99 O2 Delivery BiPAP/CPAP Bi-pap BiPAP/CPAP 02/19/20 02/19/20 02/19/20 02/19/20 04:37 05:00 05:10 05:16 Pulse 44 88 Resp 18 20 18 B/P (MAP) 156/88 (110) 172/90 (117) Pulse Ox 98 99 98 98 O2 Delivery BiPAP/CPAP BiPAP/CPAP BiPAP/CPAP Ventilator 02/19/20 02/19/20 02/19/20 02/19/20 05:20 05:25 05:25 05:35 Pulse 90 80 88 Resp 20 20 20 B/P (MAP) 175/90 (118) 137/81 (99) 144/85 (104) 168/88 (114) Pulse Ox 98 97 98 O2 Delivery BiPAP/CPAP BiPAP/CPAP BiPAP/CPAP 02/19/20 02/19/20 02/19/20 02/19/20 05:40 05:45 05:46 06:00 Pulse 66 62 56 Resp 16 18 18 18 B/P (MAP) 132/78 (96) 121/62 (81) 122/64 (83) Pulse Ox 98 97 98 98 O2 Delivery BiPAP/CPAP BiPAP/CPAP BiPAP/CPAP 02/19/20 02/19/20 02/19/20 02/19/20 07:00 07:15 07:30 07:45 Pulse 56 54 92 82 Resp 18 18 18 18 B/P (MAP) 94/80 (85) 154/82 (106) 154/80 (104) 150/76 (100) Pulse Ox 98 98 98 98 02/19/20 02/19/20 02/19/20 02/19/20 07:57 08:00 08:00 08:00 Temp 97.8 97.8 Pulse 62 82 Resp 16 18 B/P (MAP) 148/64 (92) 130/66 (87) Pulse Ox 98 98 O2 Delivery BiPAP/CPAP Bi-pap 02/19/20 02/19/20 02/19/20 02/19/20 08:15 08:27 08:30 08:45 Temp 97.6 97.6 Pulse 62 62 62 Resp 18 16 18 18 B/P (MAP) 124/67 (86) 132/66 (88) 134/68 (90) Pulse Ox 100 99 100 100 O2 Delivery BiPAP/CPAP O2 Flow Rate 45.0 02/19/20 02/19/20 02/19/20 02/19/20 09:00 09:15 09:30 09:41 Pulse 62 62 62 Resp 18 18 18 B/P (MAP) 132/68 (89) 124/67 (86) 96/56 (69) Pulse Ox 100 100 100 99 O2 Delivery BiPAP/CPAP 02/19/20 02/19/20 02/19/20 02/19/20 09:45 10:00 10:15 10:30 Pulse 62 62 56 58 Resp 18 18 18 18 B/P (MAP) 128/64 (85) 132/66 (88) 130/66 (87) 128/64 (85) Pulse Ox 100 100 100 100 02/19/20 02/19/20 02/19/20 02/19/20 10:45 11:21 12:00 12:00 Pulse 58 62 Resp 18 B/P (MAP) 124/66 (85) 138/65 (89) Pulse Ox 100 98 O2 Delivery BiPAP/CPAP Nasal Cannula O2 Flow Rate 5.0 Intake and Output 02/18/20 02/18/20 02/19/20 15:00 23:00 07:00 Intake Total 0 ml 802 ml Output Total 900 ml 725 ml 450 ml Balance -900 ml 77 ml -450 ml Justifications for Admission Other Justification KELLI JOY MD Feb 19, 2020 14:40
--- NOTE | 2020-02-19 17:00 | NUR ---
Pt off bipap most of day, on 5LNC O2 sat 93-94%. Left sided flaccidness, R side strong strength in upper and lower extremities, podus boots applied for potential foot drop, responds occasionally to yes/no questions appropriately, recognized son- Jose J but did not recognize daughter Rivka. [facility] Jose J [facility] when ready to discharge. Cardene gtt remains a 2.5mg/hr BP between SBP 120-140.
[2020-02-20] VITALS (30 sets, daily range): BP systolic 80–174; BP diastolic 44–91
[2020-02-20] MEDS: DEXMEDETOMIDINE 400 MCG in IV NORMAL SALINE 100ML 96 ML IV PRN ×5 (01:08→22:51)
[2020-02-20] MEDS: DEXAMETHASONE SOD PHOS 4 MG/ML VIAL IVP SCH ×3 (05:58→17:38)
--- NOTE | 2020-02-20 08:37 | PDOC ---
PROGRESS NOTES Date of Service DATE: 02/20/20 TIME: 08:36 Assessment Problems Medical Problems: (1) Intraparenchymal hemorrhage of brain Status: Acute Pulled out ICP monitor, 02/17 Right thalamic hemorrhage with intraventricular rupture. He developed acute hydrocephalus and required an emergent EVD Acute respiratory failure, extubated. Dense left hemiparesis. Off BiPAP, still on Cardene and Precedex Plan Monitor in intensive care unit. No need for prophylactic anticonvulsants Followup CT scans per neurosurgery Subjective None Objective Vital Signs Date Time Temp Pulse Resp B/P (MAP) Pulse Ox O2 Delivery O2 Flow Rate FiO2 02/20/20 08:00 98.9 88 20 144/81 (102) 96 Nasal Cannula 6.0 98.9 Intake and Output 02/20/20 07:00 Intake Total 2050 ml Output Total 3935 ml Balance -1885 ml Intake Oral 0 ml IV Total 2050 ml Output Urine Total 3935 ml PHYSICAL EXAM Alert, moves right side possibly to commands, nonsense speech. PERRL. EOMI. CN: no focal findings. Muscle tone:normal in left arm, increased in left leg Muscle strength: Left hemiparesis DTR: 2+ Plantar reflex: extensor on the left Gait: not examined in bed. Sensory exam: no abnormal findings. No cerebellar signs elicited. Review of Relevant I have reviewed the following items faraz (where applicable) has been applied. Labs Laboratory Tests Test 02/18/20 08:50 02/19/20 09:45 O2 Saturation 96 % (92-99) 97 % (92-99) Arterial Blood pH 7.42 (7.35-7.45) 7.42 (7.35-7.45) Arterial Blood pCO2 at Patient Temp 39 mmHg (35-46) 39 mmHg (35-46) Arterial Blood pO2 at Patient Temp 81 mmHg (65-108) 101 mmHg (65-108) Arterial Blood HCO3 24 mmol/L (21-28) 25 mmol/L (21-28) Arterial Blood Base Excess 0 mmol/L (-3-3) 0 mmol/L (-3-3) FiO2 50 45 Laboratory Tests Test 02/19/20 09:45 O2 Saturation 97 % (92-99) Arterial Blood pH 7.42 (7.35-7.45) Arterial Blood pCO2 at Patient Temp 39 mmHg (35-46) Arterial Blood pO2 at Patient Temp 101 mmHg (65-108) Arterial Blood HCO3 25 mmol/L (21-28) Arterial Blood Base Excess 0 mmol/L (-3-3) FiO2 45 Medications Current Medications Nicardipine HCl 50 mg/Sodium Chloride 250 ml @ 12.5 mls/hr CONT PRN IV SEE I/O RECORD Last administered on 02/20/20at 02:42; Start 02/14/20 at 03:30 Ondansetron HCl (Zofran) 8 mg 1X ONCE IVP Last administered on 02/14/20at 03:48; Start 02/14/20 at 04:00; Stop 02/14/20 at 04:01; Status DC Metoclopramide HCl (Reglan Vial) 10 mg STK-MED ONCE .ROUTE ; Start 02/14/20 at 04:00; Stop 02/14/20 at 04:00; Status DC Diphenhydramine HCl (Benadryl) 50 mg STK-MED ONCE .ROUTE ; Start 02/14/20 at 04:02; Stop 02/14/20 at 04:02; Status DC Hydromorphone HCl (Dilaudid) 2 mg STK-MED ONCE .ROUTE ; Start 02/14/20 at 04:02; Stop 02/14/20 at 04:03; Status DC Lidocaine HCl (Lidocaine 1% 20ml Vial) 20 ml STK-MED ONCE .ROUTE ; Start 02/14/20 at 04:11; Stop 02/14/20 at 04:12; Status DC Ondansetron HCl (Zofran) 4 mg PRN Q8HRS PRN IV NAUSEA/VOMITING 1ST CHOICE; Start 02/14/20 at 04:45; Stop 02/15/20 at 04:44; Status DC Morphine Sulfate (Morphine Sulfate) 4 mg PRN Q2HR PRN IV SEVERE PAIN 7-10; Start 02/14/20 at 04:45; Stop 02/15/20 at 04:44; Status DC Rocuronium Venus (Zemuron) 100 mg 1X ONCE IV Last administered on 02/14/20at 04:56; Start 02/14/20 at 05:00; Stop 02/14/20 at 05:01; Status DC Etomidate (Amidate) 20 mg 1X ONCE IV Last administered on 02/14/20at 04:56; Start 02/14/20 at 05:00; Stop 02/14/20 at 05:01; Status DC Fentanyl Citrate (Fentanyl 2ml Vial) 100 mcg 1X ONCE IVP Last administered on 02/14/20at 04:55; Start 02/14/20 at 05:00; Stop 02/14/20 at 05:01; Status DC Propofol (Diprivan) 200 mg STK-MED ONCE IV ; Start 02/14/20 at 05:02; Stop 02/14/20 at 05:03; Status DC Propofol 50 ml @ As Directed STK-MED ONCE IV ; Start 02/14/20 at 05:03; Stop 02/14/20 at 05:03; Status DC Propofol (Diprivan) 200 mg 1X ONCE IV ; Start 02/14/20 at 05:30; Stop 02/14/20 at 05:31; Status DC Vancomycin HCl 250 ml @ 250 mls/hr PREOP PRN PRN IV PREOP Last administered on 02/14/20at 06:48; Start 02/14/20 at 06:00; Stop 02/15/20 at 05:59; Status DC Propofol 100 ml @ 0 mls/hr CONT PRN IV SEE I/O RECORD Last administered on 02/14/20at 11:30; Start 02/14/20 at 06:30 Fentanyl Citrate (Fentanyl 2ml Vial) 50 mcg 1X ONCE IVP Last administered on 02/14/20at 06:48; Start 02/14/20 at 07:00; Stop 02/14/20 at 07:01; Status DC Lidocaine HCl (Xylocaine-Mpf 1% 2ml Vial) 2 ml STK-MED ONCE .ROUTE ; Start at 06:43; Stop 02/14/20 at 06:43; Status DC Fentanyl Citrate (Fentanyl 2ml Vial) 50 mcg 1X ONCE IVP Last administered on 02/14/20at 07:23; Start 02/14/20 at 07:30; Stop 02/14/20 at 07:31; Status DC Fentanyl Citrate 30 ml @ 2.5 mls/hr CONT PRN IV SEE PROTOCOL Last administered on 02/15/20at 09:14; Start 02/14/20 at 07:30 Fentanyl Citrate (Fentanyl 2ml Vial) 25 mcg PRN Q1HR PRN IV SEE COMMENTS; Start 02/14/20 at 07:30; Stop 02/15/20 at 18:51; Status DC Fentanyl Citrate (Fentanyl 2ml Vial) 50 mcg PRN Q1HR PRN IV SEE COMMENTS; Start 02/14/20 at 07:30; Stop 02/15/20 at 18:51; Status DC Famotidine (Pepcid Vial) 20 mg BID IVP ; Start 02/14/20 at 21:00; Stop 02/14/20 at 16:18; Status DC Potassium Chloride/Dextrose/ Sod Cl 1,000 ml @ 50 mls/hr Q20H IV Last administered on 02/19/20at 20:41; Start 02/14/20 at 11:30 Pantoprazole Sodium (PROTONIX VIAL for IV PUSH) 40 mg DAILYAC IVP Last administered on 02/19/20at 07:38; Start 02/15/20 at 07:30 Vancomycin HCl 1 gm/Sodium Chloride 250 ml @ 250 mls/hr Q12H IV Last administered on 02/17/20at 04:35; Start 02/15/20 at 17:00; Stop 02/17/20 at 07:34; Status DC Vancomycin HCl (Vanco Per Pharmacy) 1 each PRN DAILY PRN MC SEE COMMENTS; Start 02/15/20 at 16:15; Stop 02/17/20 at 07:35; Status DC Fentanyl Citrate (Fentanyl 2ml Vial) 25 mcg Q1HR ONCE IV Last administered on 02/15/20at 18:54; Start 02/15/20 at 19:00; Stop 02/15/20 at 19:01; Status DC Fentanyl Citrate (Fentanyl 2ml Vial) 25 mcg PRN Q1HR PRN IVP SEVERE PAIN 7-10 Last administered on 02/19/20at 07:57; Start 02/15/20 at 22:30 Cefazolin Sodium/ Dextrose (Ancef 2gm Premix) 2 gm STK-MED ONCE IV ; Start 02/14/20 at 07:00; Stop 02/16/20 at 06:46; Status DC Dexamethasone Sodium Phosphate (Decadron) 4 mg Q6HRS IVP Last administered on 02/20/20at 05:58; Start 02/16/20 at 12:00 Dexamethasone Sodium Phosphate (Decadron) 4 mg 1X ONCE IVP Last administered on 02/16/20at 07:57; Start 02/16/20 at 08:00; Stop 02/16/20 at 08:01; Status DC Dexmedetomidine HCl 400 mcg/ Sodium Chloride 100 ml @ 0 mls/hr CONT PRN IV PER PROTOCOL Last administered on 02/20/20at 05:26; Start 02/16/20 at 08:30 Sodium Chloride 500 ml @ 500 mls/hr 1X PRN PRN IV SEE COMMENTS; Start 02/16/20 at 08:30 Atropine Sulfate (ATROPINE 0.5mg SYRINGE) 0.5 mg PRN Q5MIN PRN IV SEE COMMENTS; Start 02/16/20 at 08:30 Levofloxacin/ Dextrose 100 ml @ 100 mls/hr Q24H IV Last administered on 02/19/20at 12:43; Start 02/16/20 at 12:00 Albuterol/ Ipratropium (Duoneb) 3 ml RTQID NEB Last administered on 02/19/20at 20:20; Start 02/16/20 at 12:00 Lorazepam (Ativan Inj) 1 mg PRN Q2HRS PRN IVP ANXIETY / AGITATION Last administered on 02/19/20at 07:34; Start 02/18/20 at 09:00 Active Scripts Active Reported Flomax (Tamsulosin Hcl) 0.4 Mg Cap.er.24h 1 Cap PO DAILY Vitals/I & O Vital Sign - Last 24 Hours 02/19/20 02/19/20 02/19/20 02/19/20 08:45 09:00 09:15 09:30 Pulse 62 62 62 62 Resp 18 18 18 18 B/P (MAP) 134/68 (90) 132/68 (89) 124/67 (86) 96/56 (69) Pulse Ox 100 100 100 100 02/19/20 02/19/20 02/19/20 02/19/20 09:41 09:45 10:00 10:15 Pulse 62 62 56 Resp 18 18 18 B/P (MAP) 128/64 (85) 132/66 (88) 130/66 (87) Pulse Ox 99 100 100 100 O2 Delivery BiPAP/CPAP 02/19/20 02/19/20 02/19/20 02/19/20 10:30 10:45 11:00 11:15 Pulse 58 58 58 58 Resp 18 18 18 18 B/P (MAP) 128/64 (85) 124/66 (85) 132/67 (88) 128/66 (86) Pulse Ox 100 100 100 100 02/19/20 02/19/20 02/19/20 02/19/20 11:21 11:30 11:45 12:00 Temp 97.9 97.9 Pulse 96 104 97 Resp 18 18 18 B/P (MAP) 142/64 (90) 138/72 (94) 144/76 (98) Pulse Ox 98 94 94 94 O2 Delivery BiPAP/CPAP Nasal Cannula Nasal Cannula Nasal Cannula O2 Flow Rate 6.0 6.0 6.0 02/19/20 02/19/20 02/19/20 02/19/20 12:00 12:00 12:15 12:30 Pulse 62 97 97 Resp 18 18 B/P (MAP) 138/65 (89) 122/60 (80) 142/72 (95) Pulse Ox 100 100 O2 Delivery Nasal Cannula Nasal Cannula Nasal Cannula O2 Flow Rate 5.0 6.0 6.0 02/19/20 02/19/20 02/19/20 02/19/20 12:45 13:00 13:15 13:30 Pulse 98 98 80 88 Resp 18 18 18 18 B/P (MAP) 142/74 (96) 138/70 (92) 140/72 (94) 148/80 (102) Pulse Ox 100 100 100 100 O2 Delivery Nasal Cannula Nasal Cannula Nasal Cannula Nasal Cannula O2 Flow Rate 6.0 6.0 6.0 6.0 02/19/20 02/19/20 02/19/20 02/19/20 13:45 15:00 15:15 15:30 Pulse 102 68 68 84 Resp 18 18 18 18 B/P (MAP) 154/82 (106) 126/62 (83) 132/66 (88) 142/76 (98) Pulse Ox 100 100 100 96 O2 Delivery Nasal Cannula Nasal Cannula Nasal Cannula Nasal Cannula O2 Flow Rate 6.0 6.0 6.0 6.0 02/19/20 02/19/20 02/19/20 02/19/20 15:45 16:00 16:00 16:00 Temp 97.8 97.8 Pulse 102 66 98 Resp 18 18 B/P (MAP) 142/72 (95) 128/64 (85) 144/78 (100) Pulse Ox 96 96 O2 Delivery Nasal Cannula Nasal Cannula Nasal Cannula O2 Flow Rate 6.0 5.0 6.0 02/19/20 02/19/20 02/19/20 02/19/20 16:15 16:26 16:30 16:45 Pulse 70 86 86 Resp 18 18 B/P (MAP) 142/82 (102) 122/94 (103) 124/69 (87) Pulse Ox 96 97 96 96 O2 Delivery Nasal Cannula Nasal Cannula Nasal Cannula Nasal Cannula O2 Flow Rate 6.0 5.0 6.0 6.0 02/19/20 02/19/20 02/19/20 02/19/20 17:00 17:30 18:00 19:00 Pulse 102 66 66 82 Resp 18 18 22 B/P (MAP) 134/71 (92) 117/57 (77) 124/72 (89) 130/74 (92) Pulse Ox 94 94 94 98 O2 Delivery Nasal Cannula Nasal Cannula Nasal Cannula Nasal Cannula O2 Flow Rate 6.0 6.0 6.0 6.0 02/19/20 02/19/20 02/19/20 02/19/20 20:00 20:00 20:19 21:00 Temp 99.2 99.2 Pulse 68 92 Resp 23 22 B/P (MAP) 128/68 (88) 123/64 (83) Pulse Ox 98 96 96 O2 Delivery Nasal Cannula Nasal Cannula Nasal Cannula Nasal Cannula O2 Flow Rate 6.0 6.0 6.0 6.0 02/19/20 02/19/20 02/20/20 02/20/20 22:00 23:00 00:00 00:00 Temp 99.1 99.1 Pulse 94 106 88 Resp 24 24 22 B/P (MAP) 147/92 (110) 143/82 (102) 150/86 (107) Pulse Ox 95 97 98 O2 Delivery Nasal Cannula Nasal Cannula Nasal Cannula Nasal Cannula O2 Flow Rate 6.0 6.0 6.0 6.0 02/20/20 02/20/20 02/20/20 02/20/20 00:15 01:00 01:30 01:45 Pulse 92 99 96 102 Resp 21 B/P (MAP) 149/86 (107) 146/81 (102) 160/87 (111) 131/82 (98) Pulse Ox 97 O2 Delivery Nasal Cannula O2 Flow Rate 6.0 02/20/20 02/20/20 02/20/20 02/20/20 02:15 02:30 03:00 04:00 Temp 99.0 99.0 Pulse 88 101 94 90 Resp 20 21 B/P (MAP) 152/85 (107) 151/81 (104) 140/78 (98) 102/59 (73) Pulse Ox 97 98 O2 Delivery Nasal Cannula Nasal Cannula O2 Flow Rate 6.0 6.0 02/20/20 02/20/20 02/20/20 02/20/20 04:00 05:00 05:30 05:45 Pulse 86 64 64 Resp 20 B/P (MAP) 128/89 (102) 83/44 (57) 80/48 (59) Pulse Ox 94 98 O2 Delivery Nasal Cannula Nasal Cannula Nasal Cannula O2 Flow Rate 6.0 6.0 6.0 02/20/20 02/20/20 02/20/20 02/20/20 06:00 07:00 07:43 08:00 Temp 98.9 98.9 Pulse 63 82 88 Resp 18 20 20 B/P (MAP) 90/49 (63) 140/74 (96) 144/81 (102) Pulse Ox 99 96 96 O2 Delivery Nasal Cannula Nasal Cannula Nasal Cannula Nasal Cannula O2 Flow Rate 6.0 6.0 6.0 6.0 Intake and Output 02/19/20 02/19/20 02/20/20 15:00 23:00 07:00 Intake Total 1950 ml 100 ml Output Total 1050 ml 1075 ml 1810 ml Balance -1050 ml 875 ml -1710 ml Justicifation of Admission Dx: Justifications for Admission: Justification of Admission Dx: Yes Acute Hemorrhagic Stroke: Acute Hemorrhagic Stroke TEE FRANCIS MD Feb 20, 2020 08:37
[2020-02-20] MEDS: PANTOPRAZOLE IV PUSH 40 MG VIAL. IVP SCH (08:49)
[2020-02-20] MEDS: IPRATRPIUM/ALBUTEROL 0.5/2.5MG 3 ML NEBU. NEB SCH ×4 (08:56→20:00)
[2020-02-20] MEDS: fentaNYL PF VIAL 100 MCG/2 ML VIAL IVP PRN ×3 (09:08→17:01)
--- NOTE | 2020-02-20 09:51 | NUR ---
SS following up with discharge planning. SS reviewed pt chart and discussed with pt RN. Pt is currently requiring nasal canula oxygen. Pt on IV Levofloxacin. SS contacted pt's son Jose J, , to discuss discharge planning. Pt's son reported that he is interested in [facility], but would like to run benefits for skilled and let him know what the out of pocket cost would be. Pt's son reported that he now has guardianship papers and will bring them to the hospital today. Pt's son reported that he wants to discuss DNR with pt's RN. SS phoned and faxed face sheet to [facility], ; fax [phone]. Arabella from the [facility] notified SS that she will run benefits. Pt to have PT/OT and COVID19 test over the weekend. Pt's RN notified. SS will continue to follow for discharge planning.
--- NOTE | 2020-02-20 10:36 | NUR ---
Patient's son, Jose J, brought guardianship papers for criminal justice social worker. Verified code status with Jose J, as of right now, Jose J wants patient to be a DNR with no chest compressions, medications, or defibrillation, but needs to talk with family regarding intubation status and will get back with the RN. Code status updated in computer.
--- NOTE | 2020-02-20 11:14 | PDOC ---
[employer] PROGRESS NOTE Date of Service DOS: DATE: 02/20/20 TIME: 11:12 Chief Complaint Chief Complaint Intraparenchymal hemorrhage of brain (thalamic hemorrhage with intraventricular rupture) Acute intraparenchymal hematoma centered within the right thalamus with a volume of approximately 14 cc. Intraventricular extension of hemorrhage filling much of the right lateral ventricle and extending downwards through the fourth ventricle.hematoma and associated edema exert mass effect on the foramen of Prieto and a portion of the third ventricle. dilatation of the right lateral ventricle temporal horn developing hydrocephalus. 02/13 ctRight frontal approach ventriculostomy . Stable ventricular configuration. Stable right basal ganglia acute intraparenchymal hemorrhage with intraventricular extension. Mass effect with sulcal effacement and increased suprasellar cistern effacement. Acute hypoxic resp failure Prior old stroke Hyperlipidemia Tobacco abuse Dense left hemiparesis History of Present Illness History of Present Illness 02/20/2020 Patient seen and examined in the ICU He is a little more alert he made eye contact with me I asked him if he could hear me he clearly stated yes Discussed with RN Discussed with caser Chart reviewed next Discussed with respiratory therapy 02/19/2020 Patient seen and examined in the ICU Yesterday pulled out his [employer] pressure monitor and we still have it out for now The CAT scan repeat of the head yesterday showed decrease size of the bleed I discussed the case with caser I reviewed the chart Discussed with RN He remains critically ill 02/18/2020 Patient seen and examined in the ICU He has mitts on but somehow was able to squeeze onto his [employer] monitor tube and pulled out I discussed case with the caser and RN Chart reviewed 02/17/2020 Patient seen and examined in the ICU He is on BiPAP His daughter is present Discussed with RN Discussed with case management Chart reviewed Vitals/I&O Vitals/I&O: Vital Signs Date Time Temp Pulse Resp B/P (MAP) Pulse Ox O2 Delivery O2 Flow Rate FiO2 02/20/20 11:00 94 22 141/90 (107) 93 Room Air 02/20/20 10:00 3.0 02/20/20 08:00 98.9 98.9 I & O 02/19/20 02/19/20 02/20/20 15:00 23:00 07:00 Intake Total 1950 ml 100 ml Output Total 1050 ml 1075 ml 1810 ml Balance -1050 ml 875 ml -1710 ml Physical Exam General: Alert, No acute distress, Other Heart: Regular rate Lungs: Crackles Abdomen: Normal bowel sounds Extremities: No cyanosis Assessment and Plan Assessmemt and Plan Problems Medical Problems: (1) Intraparenchymal hemorrhage of brain Status: Acute Intraparenchymal hemorrhage of brain (thalamic hemorrhage with intraventricular rupture) Acute intraparenchymal hematoma centered within the right thalamus with a volume of approximately 14 cc. Intraventricular extension of hemorrhage filling much of the right lateral ventricle and extending downwards through the fourth ventricle.hematoma and associated edema exert mass effect on the foramen of Prieto and a portion of the third ventricle. dilatation of the right lateral ventricle temporal horn developing hydrocephalus. 02/13 ctRight frontal approach ventriculostomy . Stable ventricular configuration. Stable right basal ganglia acute intraparenchymal hemorrhage with intraventricular extension. Mass effect with sulcal effacement and increased suprasellar cistern effacement. Acute hypoxic resp failure Prior old stroke Hyperlipidemia Tobacco abuse Dense left hemiparesis Plan ICU monitoring Trend serial CT of head periodically to check status of the bleed Mitts for patient safety He is probably going to need acute rehab or long-term acute care Trend labs Trying to resume home meds when possible DVT prophylaxis Full code Prognosis appears to be improving some as he is now able to say at least 1 or 2 words Appreciate neurology and neurosurgery input Comment Review of Relevant I have reviewed the following items faraz (where applicable) has been applied. Justifications for Admission Other Justification ELENI PICKARD III, DO Feb 20, 2020 11:14
--- NOTE | 2020-02-20 11:28 | PDOC ---
PULMONARY PROGRESS NOTES DATE: 02/20/20 TIME: 11:26 Subjective off BIPAP, more arousable S/P ventricular system 02/15/20 Vitals Vital Signs Date Time Temp Pulse Resp B/P (MAP) Pulse Ox O2 Delivery O2 Flow Rate FiO2 02/20/20 11:00 94 22 141/90 (107) 93 Room Air 02/20/20 10:00 3.0 02/20/20 08:00 98.9 98.9 General: No acute distress Lungs: Clear Cardiovascular: S1 Abdomen: Soft Skin: Warm Labs Laboratory Tests Test 02/19/20 09:45 O2 Saturation 97 % (92-99) Arterial Blood pH 7.42 (7.35-7.45) Arterial Blood pCO2 at Patient Temp 39 mmHg (35-46) Arterial Blood pO2 at Patient Temp 101 mmHg (65-108) Arterial Blood HCO3 25 mmol/L (21-28) Arterial Blood Base Excess 0 mmol/L (-3-3) FiO2 45 Medications Active Scripts Medications Dose Route/Sig Max Daily Dose Days Date Category Flomax (Tamsulosin Hcl) 0.4 Mg Cap.er.24h 1 Cap PO DAILY 02/14/20 Reported Comments CXR IMPRESSION: 1. Life-support devices as above. 2. Bibasilar heterogeneous opacities, which could represent subsegmental atelectasis, infection, or aspiration. Impression . IMPRESSION: 1. Acute respiratory failure secondary to cerebrovascular accident., Right lower lobe atelectasis, possible aspiration pneumonia 2. Hypertensive crisis. 3. 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 4. Status post ventriculostomy. 5. Intracerebral bleeding. 6. Encephalopathy secondary to above. 7. History of hypertension. 8. History of previous cerebrovascular accident. 9. Tobacco dependent. 10. Abnormal chest x-ray Plan . BiPAP prn MS improving wean FIO2 as tolerated Empiric antibiotic dexamethasone repeat cxr today Follow neurosurgery and neurology recs Cont. aggressive treatment of HTN, off of nicardipine DVT/GI PPX Pulmonary status depends on neuro improvement d/w Dr Vásquez. If neuro status does not improve by end of week, consider elective trach. clinically better today. d/w son . agrees with DNR but will d/w daughter reg intubation Total cumulative critical care time of 30 minutes Spoke with RN/RT ABRAN BARAKAT MD Feb 20, 2020 11:28
--- NOTE | 2020-02-20 12:06 | PDOC ---
PROGRESS NOTES Date of Service DATE: 02/20/20 TIME: 12:03 Subjective Subjective Resting in bed, calm, just received fentanyl opens eyes left hemiparesis on 3L NC EVD insertion site healing well SCDs f/u CT head ordered for tomorrow morning ok for PT/OT as tolerated DNR status noted D/W RN Objective Objective Vital Signs Date Time Temp Pulse Resp B/P (MAP) Pulse Ox O2 Delivery O2 Flow Rate FiO2 02/20/20 11:49 Room Air 02/20/20 11:00 94 22 141/90 (107) 93 02/20/20 10:00 3.0 02/20/20 08:00 98.9 98.9 Intake and Output 02/20/20 07:00 Intake Total 2050 ml Output Total 3935 ml Balance -1885 ml Intake Oral 0 ml IV Total 2050 ml Output Urine Total 3935 ml Assessment Assessment Problems Medical Problems: (1) Intraparenchymal hemorrhage of brain Status: Acute Comment Review of Relevant I have reviewed the following items faraz (where applicable) has been applied. Labs Laboratory Tests Test 02/19/20 09:45 O2 Saturation 97 % (92-99) Arterial Blood pH 7.42 (7.35-7.45) Arterial Blood pCO2 at Patient Temp 39 mmHg (35-46) Arterial Blood pO2 at Patient Temp 101 mmHg (65-108) Arterial Blood HCO3 25 mmol/L (21-28) Arterial Blood Base Excess 0 mmol/L (-3-3) FiO2 45 Medications Current Medications Nicardipine HCl 50 mg/Sodium Chloride 250 ml @ 12.5 mls/hr CONT PRN IV SEE I/O RECORD Last administered on 02/20/20at 11:41; Start 02/14/20 at 03:30 Ondansetron HCl (Zofran) 8 mg 1X ONCE IVP Last administered on 02/14/20at 03:48; Start 02/14/20 at 04:00; Stop 02/14/20 at 04:01; Status DC Metoclopramide HCl (Reglan Vial) 10 mg STK-MED ONCE .ROUTE ; Start 02/14/20 at 04:00; Stop 02/14/20 at 04:00; Status DC Diphenhydramine HCl (Benadryl) 50 mg STK-MED ONCE .ROUTE ; Start 02/14/20 at 04:02; Stop 02/14/20 at 04:02; Status DC Hydromorphone HCl (Dilaudid) 2 mg STK-MED ONCE .ROUTE ; Start 02/14/20 at 04:02; Stop 02/14/20 at 04:03; Status DC Lidocaine HCl (Lidocaine 1% 20ml Vial) 20 ml STK-MED ONCE .ROUTE ; Start 02/14/20 at 04:11; Stop 02/14/20 at 04:12; Status DC Ondansetron HCl (Zofran) 4 mg PRN Q8HRS PRN IV NAUSEA/VOMITING 1ST CHOICE; Start 02/14/20 at 04:45; Stop 02/15/20 at 04:44; Status DC Morphine Sulfate (Morphine Sulfate) 4 mg PRN Q2HR PRN IV SEVERE PAIN 7-10; Start 02/14/20 at 04:45; Stop 02/15/20 at 04:44; Status DC Rocuronium [place] (Zemuron) 100 mg 1X ONCE IV Last administered on 02/14/20at 04:56; Start 02/14/20 at 05:00; Stop 02/14/20 at 05:01; Status DC Etomidate (Amidate) 20 mg 1X ONCE IV Last administered on 02/14/20at 04:56; Start 02/14/20 at 05:00; Stop 02/14/20 at 05:01; Status DC Fentanyl Citrate (Fentanyl 2ml Vial) 100 mcg 1X ONCE IVP Last administered on 02/14/20at 04:55; Start 02/14/20 at 05:00; Stop 02/14/20 at 05:01; Status DC Propofol (Diprivan) 200 mg STK-MED ONCE IV ; Start 02/14/20 at 05:02; Stop 02/14/20 at 05:03; Status DC Propofol 50 ml @ As Directed STK-MED ONCE IV ; Start 02/14/20 at 05:03; Stop 02/14/20 at 05:03; Status DC Propofol (Diprivan) 200 mg 1X ONCE IV ; Start 02/14/20 at 05:30; Stop 02/14/20 at 05:31; Status DC Vancomycin HCl 250 ml @ 250 mls/hr PREOP PRN PRN IV PREOP Last administered on 02/14/20at 06:48; Start 02/14/20 at 06:00; Stop 02/15/20 at 05:59; Status DC Propofol 100 ml @ 0 mls/hr CONT PRN IV SEE I/O RECORD Last administered on 02/14/20at 11:30; Start 02/14/20 at 06:30 Fentanyl Citrate (Fentanyl 2ml Vial) 50 mcg 1X ONCE IVP Last administered on 02/14/20at 06:48; Start 02/14/20 at 07:00; Stop 02/14/20 at 07:01; Status DC Lidocaine HCl (Xylocaine-Mpf 1% 2ml Vial) 2 ml STK-MED ONCE .ROUTE ; Start 02/14/20 at 06:43; Stop 02/14/20 at 06:43; Status DC Fentanyl Citrate (Fentanyl 2ml Vial) 50 mcg 1X ONCE IVP Last administered on 02/14/20at 07:23; Start 02/14/20 at 07:30; Stop 02/14/20 at 07:31; Status DC Fentanyl Citrate 30 ml @ 2.5 mls/hr CONT PRN IV SEE PROTOCOL Last administered on 02/15/20at 09:14; Start 02/14/20 at 07:30 Fentanyl Citrate (Fentanyl 2ml Vial) 25 mcg PRN Q1HR PRN IV SEE COMMENTS; Start 02/14/20 at 07:30; Stop 02/15/20 at 18:51; Status DC Fentanyl Citrate (Fentanyl 2ml Vial) 50 mcg PRN Q1HR PRN IV SEE COMMENTS; Start 02/14/20 at 07:30; Stop 02/15/20 at 18:51; Status DC Famotidine (Pepcid Vial) 20 mg BID IVP ; Start 02/14/20 at 21:00; Stop 02/14/20 at 16:18; Status DC Potassium Chloride/Dextrose/ Sod Cl 1,000 ml @ 50 mls/hr Q20H IV Last administered on 02/19/20at 20:41; Start 02/14/20 at 11:30 Pantoprazole Sodium (PROTONIX VIAL for IV PUSH) 40 mg DAILYAC IVP Last administered on 02/20/20at 08:49; Start 02/15/20 at 07:30 Vancomycin HCl 1 gm/Sodium Chloride 250 ml @ 250 mls/hr Q12H IV Last administered on 02/17/20at 04:35; Start 02/15/20 at 17:00; Stop 02/17/20 at 07:34; Status DC Vancomycin HCl (Vanco Per Pharmacy) 1 each PRN DAILY PRN MC SEE COMMENTS; Start 02/15/20 at 16:15; Stop 02/17/20 at 07:35; Status DC Fentanyl Citrate (Fentanyl 2ml Vial) 25 mcg Q1HR ONCE IV Last administered on 02/15/20at 18:54; Start 02/15/20 at 19:00; Stop 02/15/20 at 19:01; Status DC Fentanyl Citrate (Fentanyl 2ml Vial) 25 mcg PRN Q1HR PRN IVP SEVERE PAIN 7-10 Last administered on 02/20/20at 09:08; Start 02/15/20 at 22:30 Cefazolin Sodium/ Dextrose (Ancef 2gm Premix) 2 gm STK-MED ONCE IV ; Start 02/14/20 at 07:00; Stop 02/16/20 at 06:46; Status DC Dexamethasone Sodium Phosphate (Decadron) 4 mg Q6HRS IVP Last administered on 02/20/20at 11:41; Start 02/16/20 at 12:00 Dexamethasone Sodium Phosphate (Decadron) 4 mg 1X ONCE IVP Last administered on 02/16/20at 07:57; Start 02/16/20 at 08:00; Stop 02/16/20 at 08:01; Status DC Dexmedetomidine HCl 400 mcg/ Sodium Chloride 100 ml @ 0 mls/hr CONT PRN IV PER PROTOCOL Last administered on 02/20/20at 11:41; Start 02/16/20 at 08:30 Sodium Chloride 500 ml @ 500 mls/hr 1X PRN PRN IV SEE COMMENTS; Start 02/16/20 at 08:30 Atropine Sulfate (ATROPINE 0.5mg SYRINGE) 0.5 mg PRN Q5MIN PRN IV SEE COMMENTS; Start 02/16/20 at 08:30 Levofloxacin/ Dextrose 100 ml @ 100 mls/hr Q24H IV Last administered on 02/20/20at 11:41; Start 02/16/20 at 12:00 Albuterol/ Ipratropium (Duoneb) 3 ml RTQID NEB Last administered on 02/20/20at 08:56; Start 02/16/20 at 12:00 Lorazepam (Ativan Inj) 1 mg PRN Q2HRS PRN IVP ANXIETY / AGITATION Last administered on 02/19/20at 07:34; Start 02/18/20 at 09:00 Active Scripts Active Reported Flomax (Tamsulosin Hcl) 0.4 Mg Cap.er.24h 1 Cap PO DAILY Vitals/I & O Vital Sign - Last 24 Hours 02/19/20 02/19/20 02/19/20 02/19/20 12:15 12:30 12:45 13:00 Pulse 97 97 98 98 Resp 18 18 18 18 B/P (MAP) 122/60 (80) 142/72 (95) 142/74 (96) 138/70 (92) Pulse Ox 100 100 100 100 O2 Delivery Nasal Cannula Nasal Cannula Nasal Cannula Nasal Cannula O2 Flow Rate 6.0 6.0 6.0 6.0 02/19/20 02/19/20 02/19/20 02/19/20 13:15 13:30 13:45 15:00 Pulse 80 88 102 68 Resp 18 18 18 18 B/P (MAP) 140/72 (94) 148/80 (102) 154/82 (106) 126/62 (83) Pulse Ox 100 100 100 100 O2 Delivery Nasal Cannula Nasal Cannula Nasal Cannula Nasal Cannula O2 Flow Rate 6.0 6.0 6.0 6.0 02/19/20 02/19/20 02/19/20 02/19/20 15:15 15:30 15:45 16:00 Pulse 68 84 102 Resp 18 18 18 B/P (MAP) 132/66 (88) 142/76 (98) 142/72 (95) Pulse Ox 100 96 96 O2 Delivery Nasal Cannula Nasal Cannula Nasal Cannula Nasal Cannula O2 Flow Rate 6.0 6.0 6.0 5.0 02/19/20 02/19/20 02/19/20 02/19/20 16:00 16:00 16:15 16:26 Temp 97.8 97.8 Pulse 66 98 70 Resp 18 18 B/P (MAP) 128/64 (85) 144/78 (100) 142/82 (102) Pulse Ox 96 96 97 O2 Delivery Nasal Cannula Nasal Cannula Nasal Cannula O2 Flow Rate 6.0 6.0 5.0 02/19/20 02/19/20 02/19/20 02/19/20 16:30 16:45 17:00 17:30 Pulse 86 86 102 66 Resp 18 18 18 18 B/P (MAP) 122/94 (103) 124/69 (87) 134/71 (92) 117/57 (77) Pulse Ox 96 96 94 94 O2 Delivery Nasal Cannula Nasal Cannula Nasal Cannula Nasal Cannula O2 Flow Rate 6.0 6.0 6.0 6.0 02/19/20 02/19/20 02/19/20 02/19/20 18:00 19:00 20:00 20:00 Temp 99.2 99.2 Pulse 66 82 68 Resp 23 B/P (MAP) 124/72 (89) 130/74 (92) 128/68 (88) Pulse Ox 94 98 98 O2 Delivery Nasal Cannula Nasal Cannula Nasal Cannula Nasal Cannula O2 Flow Rate 6.0 6.0 6.0 6.0 02/19/20 02/19/20 02/19/20 02/19/20 20:19 21:00 22:00 23:00 Temp 99.1 99.1 Pulse 92 94 106 Resp B/P (MAP) 123/64 (83) 147/92 (110) 143/82 (102) Pulse Ox 96 96 95 97 O2 Delivery Nasal Cannula Nasal Cannula Nasal Cannula Nasal Cannula O2 Flow Rate 6.0 6.0 6.0 6.0 02/20/20 02/20/20 02/20/20 02/20/20 00:00 00:00 00:15 01:00 Pulse 88 92 99 Resp B/P (MAP) 150/86 (107) 149/86 (107) 146/81 (102) Pulse Ox 98 97 O2 Delivery Nasal Cannula Nasal Cannula Nasal Cannula O2 Flow Rate 6.0 6.0 6.0 02/20/20 02/20/20 02/20/20 02/20/20 01:30 01:45 02:15 02:30 Pulse 96 102 88 101 B/P (MAP) 160/87 (111) 131/82 (98) 152/85 (107) 151/81 (104) 02/20/20 02/20/20 02/20/20 02/20/20 03:00 04:00 04:00 05:00 Temp 99.0 99.0 Pulse 94 90 86 Resp 20 B/P (MAP) 140/78 (98) 102/59 (73) 128/89 (102) Pulse Ox 97 98 94 O2 Delivery Nasal Cannula Nasal Cannula Nasal Cannula Nasal Cannula O2 Flow Rate 6.0 6.0 6.0 6.0 02/20/20 02/20/20 02/20/20 02/20/20 05:30 05:45 06:00 07:00 Pulse 64 64 63 82 Resp 18 20 B/P (MAP) 83/44 (57) 80/48 (59) 90/49 (63) 140/74 (96) Pulse Ox 98 99 96 O2 Delivery Nasal Cannula Nasal Cannula Nasal Cannula O2 Flow Rate 6.0 6.0 6.0 02/20/20 02/20/20 02/20/20 02/20/20 07:43 08:00 09:00 09:00 Temp 98.9 98.9 Pulse 88 89 Resp 20 23 B/P (MAP) 144/81 (102) 141/82 (101) Pulse Ox 96 95 95 O2 Delivery Nasal Cannula Nasal Cannula Nasal Cannula Nasal Cannula O2 Flow Rate 6.0 6.0 3.0 3.0 02/20/20 02/20/20 02/20/20 02/20/20 09:08 09:38 10:00 11:00 Pulse 95 94 Resp 16 20 16 22 B/P (MAP) 141/84 (103) 141/90 (107) Pulse Ox 94 95 95 93 O2 Delivery Nasal Cannula Nasal Cannula Nasal Cannula Room Air O2 Flow Rate 3.0 3.0 3.0 02/20/20 11:49 O2 Delivery Room Air Intake and Output 02/19/20 02/19/20 02/20/20 15:00 23:00 07:00 Intake Total 1950 ml 100 ml Output Total 1050 ml 1075 ml 1810 ml Balance -1050 ml 875 ml -1710 ml Justifications for Admission Other Justification BHARATI FITCH [employer]ILINE [employer] Feb 20, 2020 12:06
--- NOTE | 2020-02-20 13:49 | NUR ---
Attempted to turn down precedex, patient began punching himself in the face and leg, when asked why, patient said he didn't know. Hand mitt was placed on right arm of patient for his own safety and pain medication given to help with anxiety and pain, patient then began biting mitt because he "wanted to hurt his teeth." Mitt removed to maybe help calm patient, patient then began biting his own finger once again to hurt his teeth. Precedex increased to 0.6 mcg/kg/hr and bolus given. Mitt currently off patient.
--- NOTE | 2020-02-20 14:05 | NUR ---
SS following up with discharge planning. SS received notification from [facility], ; fax [phone], stating that [facility] covers 80% of correction unit and pt is responsible for 20%. SS was notified that pt will be responsible for $84 per day at correction unit. SS discussed with pt's son Jose J. SS will continue to follow for discharge planning.
[2020-02-20] MEDS: POTASSIUM CL 20MEQ D5-0.45NACL 1,000 ML IV SCH (17:39)
[2020-02-21] VITALS (24 sets, daily range): BP systolic 100–168; BP diastolic 62–91
[2020-02-21] MEDS: DEXAMETHASONE SOD PHOS 4 MG/ML VIAL IVP SCH ×4 (00:13→19:53)
[2020-02-21] MEDS: DEXMEDETOMIDINE 400 MCG in IV NORMAL SALINE 100ML 96 ML IV PRN ×3 (04:13→23:32)
[2020-02-21 05:11] LABS: BASO % 0 % (0-3); EOS % 0 % (0-3); HEMATOCRIT 43.1 % (39.0-53.0); HEMOGLOBIN 14.5 g/dL (13.0-17.5); LYMPH # 0.7 x10^3/uL (1.0-4.8); LYMPH % 4 % (24-48); MEAN CORPUSCULAR HEMOGLOBIN 30 pg (25-35); MEAN CORPUSCULAR HGB CONC 34 g/dL (31-37); MEAN CORPUSCULAR VOLUME 89 fL (79-100); MONO # 0.9 x10^3/uL (0.0-1.1); MONO % 6 % (0-9); NEUT # 13.9 x10^3/uL (1.8-7.7); NEUT % 90 % (31-73); PLATELET COUNT 210 x10^3/uL (140-400); RED BLOOD COUNT 4.83 x10^6/uL (4.30-5.70); RED CELL DISTRIBUTION WIDTH 13.6 % (11.5-14.5); WHITE BLOOD COUNT 15.5 x10^3/uL (4.0-11.0)
[2020-02-21 05:55] LABS: CALCIUM 8.6 mg/dL (8.5-10.1); CREATININE 0.9 mg/dL (0.7-1.3)
[2020-02-21 05:58] LABS: POTASSIUM 3.9 mmol/L (3.5-5.1)
[2020-02-21] MEDS: IPRATRPIUM/ALBUTEROL 0.5/2.5MG 3 ML NEBU. NEB SCH ×4 (08:00→19:41)
[2020-02-21] MEDS: PANTOPRAZOLE IV PUSH 40 MG VIAL. IVP SCH (08:24)
--- NOTE | 2020-02-21 09:38 | PDOC ---
PULMONARY PROGRESS NOTES DATE: 02/21/20 TIME: 09:37 Subjective off BIPAP on ra alert weak answers most Qs, on cardene Vitals Vital Signs Date Time Temp Pulse Resp B/P (MAP) Pulse Ox O2 Delivery O2 Flow Rate FiO2 02/21/20 07:00 98.1 78 143/83 (103) Nasal Cannula 2.0 98.1 02/21/20 06:00 20 94 General: Alert, No acute distress Lungs: Clear Cardiovascular: S1 Abdomen: Soft Neuro Exam: Alert Extremities: Other (edema) Skin: Warm Labs Laboratory Tests Test 02/19/20 09:45 02/21/20 04:40 O2 Saturation 97 % (92-99) Arterial Blood pH 7.42 (7.35-7.45) Arterial Blood pCO2 at Patient Temp 39 mmHg (35-46) Arterial Blood pO2 at Patient Temp 101 mmHg (65-108) Arterial Blood HCO3 25 mmol/L (21-28) Arterial Blood Base Excess 0 mmol/L (-3-3) FiO2 45 White Blood Count 15.5 x10^3/uL (4.0-11.0) Red Blood Count 4.83 x10^6/uL (4.30-5.70) Hemoglobin 14.5 g/dL (13.0-17.5) Hematocrit 43.1 % (39.0-53.0) Mean Corpuscular Volume 89 fL (79-100) Mean Corpuscular Hemoglobin 30 pg (25-35) Mean Corpuscular Hemoglobin Concent 34 g/dL (31-37) Red Cell Distribution Width 13.6 % (11.5-14.5) Platelet Count 210 x10^3/uL (140-400) Neutrophils (%) (Auto) 90 % (31-73) Lymphocytes (%) (Auto) 4 % (24-48) Monocytes (%) (Auto) 6 % (0-9) Eosinophils (%) (Auto) 0 % (0-3) Basophils (%) (Auto) 0 % (0-3) Neutrophils # (Auto) 13.9 x10^3/uL (1.8-7.7) Lymphocytes # (Auto) 0.7 x10^3/uL (1.0-4.8) Monocytes # (Auto) 0.9 x10^3/uL (0.0-1.1) Eosinophils # (Auto) 0.0 x10^3/uL (0.0-0.7) Basophils # (Auto) 0.0 x10^3/uL (0.0-0.2) Sodium Level 141 mmol/L (136-145) Potassium Level 3.9 mmol/L (3.5-5.1) Chloride Level 105 mmol/L (98-107) Carbon Dioxide Level 28 mmol/L (21-32) Anion Gap 8 (6-14) Blood Urea Nitrogen 31 mg/dL (8-26) Creatinine 0.9 mg/dL (0.7-1.3) Estimated GFR (Cockcroft-Gault) 85.0 Glucose Level 201 mg/dL (70-99) Calcium Level 8.6 mg/dL (8.5-10.1) Laboratory Tests Test 02/21/20 04:40 White Blood Count 15.5 x10^3/uL (4.0-11.0) Red Blood Count 4.83 x10^6/uL (4.30-5.70) Hemoglobin 14.5 g/dL (13.0-17.5) Hematocrit 43.1 % (39.0-53.0) Mean Corpuscular Volume 89 fL (79-100) Mean Corpuscular Hemoglobin 30 pg (25-35) Mean Corpuscular Hemoglobin Concent 34 g/dL (31-37) Red Cell Distribution Width 13.6 % (11.5-14.5) Platelet Count 210 x10^3/uL (140-400) Neutrophils (%) (Auto) 90 % (31-73) Lymphocytes (%) (Auto) 4 % (24-48) Monocytes (%) (Auto) 6 % (0-9) Eosinophils (%) (Auto) 0 % (0-3) Basophils (%) (Auto) 0 % (0-3) Neutrophils # (Auto) 13.9 x10^3/uL (1.8-7.7) Lymphocytes # (Auto) 0.7 x10^3/uL (1.0-4.8) Monocytes # (Auto) 0.9 x10^3/uL (0.0-1.1) Eosinophils # (Auto) 0.0 x10^3/uL (0.0-0.7) Basophils # (Auto) 0.0 x10^3/uL (0.0-0.2) Sodium Level 141 mmol/L (136-145) Potassium Level 3.9 mmol/L (3.5-5.1) Chloride Level 105 mmol/L (98-107) Carbon Dioxide Level 28 mmol/L (21-32) Anion Gap 8 (6-14) Blood Urea Nitrogen 31 mg/dL (8-26) Creatinine 0.9 mg/dL (0.7-1.3) Estimated GFR (Cockcroft-Gault) 85.0 Glucose Level 201 mg/dL (70-99) Calcium Level 8.6 mg/dL (8.5-10.1) Medications Active Scripts Medications Dose Route/Sig Max Daily Dose Days Date Category Flomax (Tamsulosin Hcl) 0.4 Mg Cap.er.24h 1 Cap PO DAILY 02/14/20 Reported Comments CXR IMPRESSION: 1. Life-support devices as above. 2. Bibasilar heterogeneous opacities, which could represent subsegmental atelectasis, infection, or aspiration. Impression . IMPRESSION: 1. Acute respiratory failure secondary to cerebrovascular accident., Right lower lobe atelectasis, possible aspiration pneumonia 2. Hypertensive crisis. 3. 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 4. Status post ventriculostomy. 5. Intracerebral bleeding. 6. Encephalopathy secondary to above. improved 7. History of hypertension. 8. History of previous cerebrovascular accident. 9. Tobacco dependent. 10. Abnormal chest x-ray Plan . BiPAP prn MS improving wean FIO2 as tolerated Empiric antibiotic dexamethasone Follow neurosurgery and neurology recs Cont. aggressive treatment of HTN, off of nicardipine DVT/GI PPX Pulmonary status depends on neuro improvement clinically better today. dr villar d/w son . agrees with DNR Spoke with RN/RT JOSE RAUL CEJA MD Feb 21, 2020 09:38
--- NOTE | 2020-02-21 11:03 | PDOC ---
[facility] PROGRESS NOTE Date of Service DOS: DATE: 02/21/20 TIME: 11:02 Chief Complaint Chief Complaint Intraparenchymal hemorrhage of brain (thalamic hemorrhage with intraventricular rupture) Acute intraparenchymal hematoma centered within the right thalamus with a volume of approximately 14 cc. Intraventricular extension of hemorrhage filling much of the right lateral ventricle and extending downwards through the fourth ventricle.hematoma and associated edema exert mass effect on the foramen of Prieto and a portion of the third ventricle. dilatation of the right lateral ventricle temporal horn developing hydrocephalus. 02/13 ctRight frontal approach ventriculostomy . Stable ventricular configuration. Stable right basal ganglia acute intraparenchymal hemorrhage with intraventricular extension. Mass effect with sulcal effacement and increased suprasellar cistern effacement. Acute hypoxic resp failure Prior old stroke Hyperlipidemia Tobacco abuse Dense left hemiparesis History of Present Illness History of Present Illness 02/21/2020 Patient seen and examined in the ICU He is about the same as yesterday makes eye contact tries to speak but I cannot understand him too much Discussed with RN Chart reviewed 02/20/2020 Patient seen and examined in the ICU He is a little more alert he made eye contact with me I asked him if he could hear me he clearly stated yes Discussed with RN Discussed with case investigator Chart reviewed next Discussed with respiratory therapy 02/19/2020 Patient seen and examined in the ICU Yesterday pulled out his [employer] pressure monitor and we still have it out for now The CAT scan repeat of the head yesterday showed decrease size of the bleed I discussed the case with case investigator I reviewed the chart Discussed with RN He remains critically ill 02/18/2020 Patient seen and examined in the ICU He has mitts on but somehow was able to squeeze onto his [employer] monitor tube and pulled out I discussed case with the case investigator and RN Chart reviewed 02/17/2020 Patient seen and examined in the ICU He is on BiPAP His daughter is present Discussed with RN Discussed with case management Chart reviewed Vitals/I&O Vitals/I&O: Vital Signs Date Time Temp Pulse Resp B/P (MAP) Pulse Ox O2 Delivery O2 Flow Rate FiO2 02/21/20 10:00 72 118/74 (89) 02/21/20 09:58 94 Room Air 02/21/20 08:00 97.8 24 97.8 02/21/20 08:00 3.0 I & O 02/20/20 02/20/20 02/21/20 15:00 23:00 07:00 Intake Total 100 ml 879 ml 225 ml Output Total 925 ml 450 ml 1850 ml Balance -825 ml 429 ml -1625 ml Physical Exam General: Other (Makes eye contact tries to talk but I cannot understand) Heart: Regular rate Lungs: Clear Abdomen: Normal bowel sounds Extremities: No cyanosis Labs Labs: Laboratory Tests Test 02/21/20 04:40 White Blood Count 15.5 x10^3/uL (4.0-11.0) Red Blood Count 4.83 x10^6/uL (4.30-5.70) Hemoglobin 14.5 g/dL (13.0-17.5) Hematocrit 43.1 % (39.0-53.0) Mean Corpuscular Volume 89 fL (79-100) Mean Corpuscular Hemoglobin 30 pg (25-35) Mean Corpuscular Hemoglobin Concent 34 g/dL (31-37) Red Cell Distribution Width 13.6 % (11.5-14.5) Platelet Count 210 x10^3/uL (140-400) Neutrophils (%) (Auto) 90 % (31-73) Lymphocytes (%) (Auto) 4 % (24-48) Monocytes (%) (Auto) 6 % (0-9) Eosinophils (%) (Auto) 0 % (0-3) Basophils (%) (Auto) 0 % (0-3) Neutrophils # (Auto) 13.9 x10^3/uL (1.8-7.7) Lymphocytes # (Auto) 0.7 x10^3/uL (1.0-4.8) Monocytes # (Auto) 0.9 x10^3/uL (0.0-1.1) Eosinophils # (Auto) 0.0 x10^3/uL (0.0-0.7) Basophils # (Auto) 0.0 x10^3/uL (0.0-0.2) Sodium Level 141 mmol/L (136-145) Potassium Level 3.9 mmol/L (3.5-5.1) Chloride Level 105 mmol/L (98-107) Carbon Dioxide Level 28 mmol/L (21-32) Anion Gap 8 (6-14) Blood Urea Nitrogen 31 mg/dL (8-26) Creatinine 0.9 mg/dL (0.7-1.3) Estimated GFR (Cockcroft-Gault) 85.0 Glucose Level 201 mg/dL (70-99) Calcium Level 8.6 mg/dL (8.5-10.1) Assessment and Plan Assessmemt and Plan Problems Medical Problems: (1) Intraparenchymal hemorrhage of brain Status: Acute Intraparenchymal hemorrhage of brain (thalamic hemorrhage with intraventricular rupture) Acute intraparenchymal hematoma centered within the right thalamus with a volume of approximately 14 cc. Intraventricular extension of hemorrhage filling much of the right lateral ventricle and extending downwards through the fourth ventricle.hematoma and associated edema exert mass effect on the foramen of Prieto and a portion of the third ventricle. dilatation of the right lateral ventricle temporal horn developing hydrocephalus. 02/13 ctRight frontal approach ventriculostomy . Stable ventricular con figuration. Stable right basal ganglia acute intraparenchymal hemorrhage with intraventricular extension. Mass effect with sulcal effacement and increased suprasellar cistern effacement. Acute hypoxic resp failure Prior old stroke Hyperlipidemia Tobacco abuse Dense left hemiparesis Plan ICU monitoring Trend serial CT of head periodically to check status of the bleed Mitts for patient safety He is probably going to need acute rehab or long-term acute care Trend labs Trying to resume home meds when possible DVT prophylaxis Full code Prognosis appears to be slightly improving some as he is now able to say at least 1 or 2 words Appreciate neurology and neurosurgery input Comment Review of Relevant I have reviewed the following items faraz (where applicable) has been applied. Justifications for Admission Other Justification ELENI PICKARD III, DO Feb 21, 2020 11:03
[2020-02-21] MEDS: POTASSIUM CL 20MEQ D5-0.45NACL 1,000 ML IV SCH (13:06)
--- NOTE | 2020-02-21 15:26 | RAD ---
PQRS Compliance Statement: One or more of the following individualized dose reduction techniques were utilized for this examination: 1. Automated exposure control 2. Adjustment of the mA and/or kV according to patient size 3. Use of iterative reconstruction technique CT head without contrast 02/21/2020 12:02 PM INDICATION: Ventricular hemorrhage COMPARISON: CT head 02/18/2020 TECHNIQUE: Multiple axial CT images of the head were obtained from skull base through the vertex without intravenous contrast. FINDINGS: Head: There is redemonstration of right thalamic hemorrhage with intraventricular involvement. Hematoma within the right thalamus measures 3.1 x 3.0 cm, stable. There is persistent midline shift to the left by approximately 0.6 cm, not significantly changed when measured similarly. There is similar degree of intraventricular hemorrhage layering of blood products within the occipital horns bilaterally. No hydrocephalus. There is a linear tract of high attenuation associated with ventriculostomy catheter placement the right frontal lobe. Orbits are normal in appearance with exception of bilateral lens replacement. No new intracranial hemorrhage is identified. There is mild sulcal effacement on the right. Posterior fossa is normal in appearance. Brainstem is normal. Sella and suprasellar cistern are intact. IMPRESSION: Similar pattern of intraparenchymal and intraventricular hemorrhage as described in detail above. Similar degree of midline shift to the left. Electronically signed by: Camilla Arias MD (02/21/2020 3:23 PM) [facility]
[2020-02-22] VITALS (26 sets, daily range): BP systolic 105–188; BP diastolic 58–101
[2020-02-22] MEDS: DEXAMETHASONE SOD PHOS 4 MG/ML VIAL IVP SCH ×3 (00:15→12:04)
[2020-02-22 05:41] LABS: BASO % 0 % (0-3); EOS % 0 % (0-3); HEMATOCRIT 41.4 % (39.0-53.0); LYMPH # 0.5 x10^3/uL (1.0-4.8); LYMPH % 6 % (24-48); MEAN CORPUSCULAR HEMOGLOBIN 30 pg (25-35); MEAN CORPUSCULAR HGB CONC 34 g/dL (31-37); MEAN CORPUSCULAR VOLUME 89 fL (79-100); MONO # 0.7 x10^3/uL (0.0-1.1); MONO % 8 % (0-9); NEUT # 7.8 x10^3/uL (1.8-7.7); NEUT % 86 % (31-73); PLATELET COUNT 211 x10^3/uL (140-400); RED BLOOD COUNT 4.66 x10^6/uL (4.30-5.70); RED CELL DISTRIBUTION WIDTH 13.8 % (11.5-14.5)
[2020-02-22 05:57] LABS: CALCIUM 8.3 mg/dL (8.5-10.1); GFR 75.2; POTASSIUM 4.3 mmol/L (3.5-5.1)
[2020-02-22] MEDS: PANTOPRAZOLE IV PUSH 40 MG VIAL. IVP SCH (08:34)
[2020-02-22] MEDS: IPRATRPIUM/ALBUTEROL 0.5/2.5MG 3 ML NEBU. NEB SCH ×4 (08:44→20:02)
[2020-02-22] MEDS: POTASSIUM CL 20MEQ D5-0.45NACL 1,000 ML IV SCH (09:16)
[2020-02-22] MEDS: METOPROLOL TARTRATE 5 MG/5 ML VIAL. IVP SCH ×2 (10:15→17:46)
--- NOTE | 2020-02-22 10:21 | PDOC ---
[facility] PROGRESS NOTE Date of Service DOS: DATE: 02/22/20 TIME: 10:19 Chief Complaint Chief Complaint Intraparenchymal hemorrhage of brain (thalamic hemorrhage with intraventricular rupture) Acute intraparenchymal hematoma centered within the right thalamus with a volume of approximately 14 cc. Intraventricular extension of hemorrhage filling much of the right lateral ventricle and extending downwards through the fourth ventricle.hematoma and associated edema exert mass effect on the foramen of Prieto and a portion of the third ventricle. dilatation of the right lateral ventricle temporal horn developing hydrocephalus. 02/13 ctRight frontal approach ventriculostomy . Stable ventricular configuration. Stable right basal ganglia acute intraparenchymal hemorrhage with intraventricular extension. Mass effect with sulcal effacement and increased suprasellar cistern effacement. Acute hypoxic resp failure Prior old stroke Hyperlipidemia Tobacco abuse Dense left hemiparesis History of Present Illness History of Present Illness 02/22/2020 Patient seen and examined in the ICU He remains about the same Can barely say 1 word Very sedated and obtunded Has mitts on for patient safety He is on a Cardene drip Has Precedex Also has IV Levaquin Chart reviewed Discussed with RN 02/21/2020 Patient seen and examined in the ICU He is about the same as yesterday makes eye contact tries to speak but I cannot understand him too much Discussed with RN Chart reviewed 02/20/2020 Patient seen and examined in the ICU He is a little more alert he made eye contact with me I asked him if he could hear me he clearly stated yes Discussed with RN Discussed with mental health case manager Chart reviewed next Discussed with respiratory therapy 02/19/2020 Patient seen and examined in the ICU Yesterday pulled out his [employer]ATION[employer] pressure monitor and we still have it out for now The CAT scan repeat of the head yesterday showed decrease size of the bleed I discussed the case with mental health case manager I reviewed the chart Discussed with RN He remains critically ill 02/18/2020 Patient seen and examined in the ICU He has mitts on but somehow was able to squeeze onto his [employer] monitor tube and pulled out I discussed case with the mental health case manager and RN Chart reviewed 02/17/2020 Patient seen and examined in the ICU He is on BiPAP His daughter is present Discussed with RN Discussed with case management Chart reviewed Vitals/I&O Vitals/I&O: Vital Signs Date Time Temp Pulse Resp B/P (MAP) Pulse Ox O2 Delivery O2 Flow Rate FiO2 02/22/20 10:15 133 178/88 02/22/20 09:00 98.4 24 95 Room Air 98.4 02/21/20 16:00 3.0 I & O 02/21/20 02/21/20 02/22/20 15:00 23:00 07:00 Intake Total 100 ml 0 ml 806 ml Output Total 600 ml 775 ml 1075 ml Balance -500 ml -775 ml -269 ml Physical Exam General: Other (Makes eye contact tries to talk but I cannot understand) Heart: Regular rate Lungs: Clear Abdomen: Normal bowel sounds Extremities: No cyanosis Labs Labs: Laboratory Tests Test 02/22/20 05:20 White Blood Count 9.0 x10^3/uL (4.0-11.0) Red Blood Count 4.66 x10^6/uL (4.30-5.70) Hemoglobin 14.0 g/dL (13.0-17.5) Hematocrit 41.4 % (39.0-53.0) Mean Corpuscular Volume 89 fL (79-100) Mean Corpuscular Hemoglobin 30 pg (25-35) Mean Corpuscular Hemoglobin Concent 34 g/dL (31-37) Red Cell Distribution Width 13.8 % (11.5-14.5) Platelet Count 211 x10^3/uL (140-400) Neutrophils (%) (Auto) 86 % (31-73) Lymphocytes (%) (Auto) 6 % (24-48) Monocytes (%) (Auto) 8 % (0-9) Eosinophils (%) (Auto) 0 % (0-3) Basophils (%) (Auto) 0 % (0-3) Neutrophils # (Auto) 7.8 x10^3/uL (1.8-7.7) Lymphocytes # (Auto) 0.5 x10^3/uL (1.0-4.8) Monocytes # (Auto) 0.7 x10^3/uL (0.0-1.1) Eosinophils # (Auto) 0.0 x10^3/uL (0.0-0.7) Basophils # (Auto) 0.0 x10^3/uL (0.0-0.2) Sodium Level 145 mmol/L (136-145) Potassium Level 4.3 mmol/L (3.5-5.1) Chloride Level 109 mmol/L (98-107) Carbon Dioxide Level 26 mmol/L (21-32) Anion Gap 10 (6-14) Blood Urea Nitrogen 34 mg/dL (8-26) Creatinine 1.0 mg/dL (0.7-1.3) Estimated GFR (Cockcroft-Gault) 75.2 Glucose Level 260 mg/dL (70-99) Calcium Level 8.3 mg/dL (8.5-10.1) Assessment and Plan Assessmemt and Plan Problems Medical Problems: (1) Intraparenchymal hemorrhage of brain Status: Acute Intraparenchymal hemorrhage of brain (thalamic hemorrhage with intraventricular rupture) Acute intraparenchymal hematoma centered within the right thalamus with a volume of approximately 14 cc. Intraventricular extension of hemorrhage filling much of the right lateral ventricle and extending downwards through the fourth ventricle.hematoma and associated edema exert mass effect on the foramen of Prieto and a portion of the third ventricle. dilatation of the right lateral ventricle temporal horn developing hydrocephalus. 02/13 ctRight frontal approach ventriculostomy . Stable ventricular configuration. Stable right basal ganglia acute intraparenchymal hemorrhage with intraventricular extension. Mass effect with sulcal effacement and increased suprasellar cistern effacement. Acute hypoxic resp failure Prior old stroke Hyperlipidemia Tobacco abuse Dense left hemiparesis Plan ICU monitoring Trend serial CT of head periodically to check status of the bleed Mitts for patient safety PRN Precedex IV Levaquin Cardene drip He is probably going to need acute rehab or long-term acute care Trend labs Trying to resume home meds when possible DVT prophylaxis Full code Prognosis appears to be slightly improving some as he is now able to say at least 1 or 2 words intermittently Appreciate neurology and neurosurgery input Comment Review of Relevant I have reviewed the following items faraz (where applicable) has been applied. Medications: Current Medications Medications (Trade) Dose Ordered Sig/Fabricio Route PRN Reason Start Time Stop Time Status Last Admin Dose Admin Metoprolol Tartrate (Lopressor Vial) 5 mg Q6HRS IVP 02/22/20 10:30 02/22/20 10:15 Justifications for Admission Other Justification ELENI PICKARD III DO Feb 22, 2020 10:21
--- NOTE | 2020-02-22 11:21 | PDOC ---
PULMONARY PROGRESS NOTES DATE: 02/22/20 TIME: 11:15 Subjective didnt use BIPAP on ra alert weak answers some Qs, on cardene Vitals Vital Signs Date Time Temp Pulse Resp B/P (MAP) Pulse Ox O2 Delivery O2 Flow Rate FiO2 02/22/20 10:15 133 178/88 02/22/20 10:00 98.0 20 95 Room Air 98.0 02/21/20 16:00 3.0 General: Alert, No acute distress Lungs: Crackles Cardiovascular: S1, S2 Abdomen: Soft, Non-tender Neuro Exam: Alert Extremities: Other (edema) Skin: Warm Labs Laboratory Tests Test 02/21/20 04:40 02/22/20 05:20 White Blood Count 15.5 x10^3/uL (4.0-11.0) 9.0 x10^3/uL (4.0-11.0) Red Blood Count 4.83 x10^6/uL (4.30-5.70) 4.66 x10^6/uL (4.30-5.70) Hemoglobin 14.5 g/dL (13.0-17.5) 14.0 g/dL (13.0-17.5) Hematocrit 43.1 % (39.0-53.0) 41.4 % (39.0-53.0) Mean Corpuscular Volume 89 fL (79-100) 89 fL (79-100) Mean Corpuscular Hemoglobin 30 pg (25-35) 30 pg (25-35) Mean Corpuscular Hemoglobin Concent 34 g/dL (31-37) 34 g/dL (31-37) Red Cell Distribution Width 13.6 % (11.5-14.5) 13.8 % (11.5-14.5) Platelet Count 210 x10^3/uL (140-400) 211 x10^3/uL (140-400) Neutrophils (%) (Auto) 90 % (31-73) 86 % (31-73) Lymphocytes (%) (Auto) 4 % (24-48) 6 % (24-48) Monocytes (%) (Auto) 6 % (0-9) 8 % (0-9) Eosinophils (%) (Auto) 0 % (0-3) 0 % (0-3) Basophils (%) (Auto) 0 % (0-3) 0 % (0-3) Neutrophils # (Auto) 13.9 x10^3/uL (1.8-7.7) 7.8 x10^3/uL (1.8-7.7) Lymphocytes # (Auto) 0.7 x10^3/uL (1.0-4.8) 0.5 x10^3/uL (1.0-4.8) Monocytes # (Auto) 0.9 x10^3/uL (0.0-1.1) 0.7 x10^3/uL (0.0-1.1) Eosinophils # (Auto) 0.0 x10^3/uL (0.0-0.7) 0.0 x10^3/uL (0.0-0.7) Basophils # (Auto) 0.0 x10^3/uL (0.0-0.2) 0.0 x10^3/uL (0.0-0.2) Sodium Level 141 mmol/L (136-145) 145 mmol/L (136-145) Potassium Level 3.9 mmol/L (3.5-5.1) 4.3 mmol/L (3.5-5.1) Chloride Level 105 mmol/L (98-107) 109 mmol/L (98-107) Carbon Dioxide Level 28 mmol/L (21-32) 26 mmol/L (21-32) Anion Gap 8 (6-14) 10 (6-14) Blood Urea Nitrogen 31 mg/dL (8-26) 34 mg/dL (8-26) Creatinine 0.9 mg/dL (0.7-1.3) 1.0 mg/dL (0.7-1.3) Estimated GFR (Cockcroft-Gault) 85.0 75.2 Glucose Level 201 mg/dL (70-99) 260 mg/dL (70-99) Calcium Level 8.6 mg/dL (8.5-10.1) 8.3 mg/dL (8.5-10.1) Laboratory Tests Test 02/22/20 05:20 White Blood Count 9.0 x10^3/uL (4.0-11.0) Red Blood Count 4.66 x10^6/uL (4.30-5.70) Hemoglobin 14.0 g/dL (13.0-17.5) Hematocrit 41.4 % (39.0-53.0) Mean Corpuscular Volume 89 fL (79-100) Mean Corpuscular Hemoglobin 30 pg (25-35) Mean Corpuscular Hemoglobin Concent 34 g/dL (31-37) Red Cell Distribution Width 13.8 % (11.5-14.5) Platelet Count 211 x10^3/uL (140-400) Neutrophils (%) (Auto) 86 % (31-73) Lymphocytes (%) (Auto) 6 % (24-48) Monocytes (%) (Auto) 8 % (0-9) Eosinophils (%) (Auto) 0 % (0-3) Basophils (%) (Auto) 0 % (0-3) Neutrophils # (Auto) 7.8 x10^3/uL (1.8-7.7) Lymphocytes # (Auto) 0.5 x10^3/uL (1.0-4.8) Monocytes # (Auto) 0.7 x10^3/uL (0.0-1.1) Eosinophils # (Auto) 0.0 x10^3/uL (0.0-0.7) Basophils # (Auto) 0.0 x10^3/uL (0.0-0.2) Sodium Level 145 mmol/L (136-145) Potassium Level 4.3 mmol/L (3.5-5.1) Chloride Level 109 mmol/L (98-107) Carbon Dioxide Level 26 mmol/L (21-32) Anion Gap 10 (6-14) Blood Urea Nitrogen 34 mg/dL (8-26) Creatinine 1.0 mg/dL (0.7-1.3) Estimated GFR (Cockcroft-Gault) 75.2 Glucose Level 260 mg/dL (70-99) Calcium Level 8.3 mg/dL (8.5-10.1) Medications Active Scripts Medications Dose Route/Sig Max Daily Dose Days Date Category Flomax (Tamsulosin Hcl) 0.4 Mg Cap.er.24h 1 Cap PO DAILY 02/14/20 Reported Comments CXR IMPRESSION: Bibasilar heterogeneous opacities, which could represent subsegmental atelectasis, infection, or aspiration. Impression . IMPRESSION: 1. Acute respiratory failure secondary to cerebrovascular accident., Right lower lobe atelectasis, possible aspiration pneumonia improved 2. Hypertensive crisis. 3. 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 4. Status post ventriculostomy. 5. Intracerebral bleeding. 6. Encephalopathy secondary to above. improved 7. History of hypertension. 8. History of previous cerebrovascular accident. 9. Tobacco dependent. 10. Abnormal chest x-ray Plan . BiPAP prn MS improving wean FIO2 as tolerated Empiric antibiotic dexamethasone per neurosurgery abx day 7 will stop Follow neurosurgery and neurology recs Cont. aggressive treatment of HTN, on nicardipine DVT/GI PPX Pulmonary status depends on neuro improvement clinically improving is very weak cont pt ot dr villar d/w son . agrees with DNR Spoke with RN/RT JOSE RAUL CEJA MD Feb 22, 2020 11:21
[2020-02-23] VITALS (27 sets, daily range): BP systolic 104–157; BP diastolic 62–90
[2020-02-23] MEDS: METOPROLOL TARTRATE 5 MG/5 ML VIAL. IVP SCH ×4 (00:03→17:57)
[2020-02-23] MEDS: POTASSIUM CL 20MEQ D5-0.45NACL 1,000 ML IV SCH (04:34)
[2020-02-23] MEDS: PANTOPRAZOLE IV PUSH 40 MG VIAL. IVP SCH (07:30)
[2020-02-23] MEDS: IPRATRPIUM/ALBUTEROL 0.5/2.5MG 3 ML NEBU. NEB SCH ×4 (07:56→20:15)
--- NOTE | 2020-02-23 09:01 | PDOC ---
PROGRESS NOTES Date of Service: DATE: 02/23/20 TIME: 08:58 Chief Complaint Chief Complaint Intraparenchymal hemorrhage of brain (thalamic hemorrhage with intraventricular rupture) Acute intraparenchymal hematoma centered within the right thalamus with a volume of approximately 14 cc. Intraventricular extension of hemorrhage filling much of the right lateral ventricle and extending downwards through the fourth ventricle.hematoma and associated edema exert mass effect on the foramen of Prieto and a portion of the third ventricle. dilatation of the right lateral ventricle temporal horn developing hydrocephalus. 02/13 ctRight frontal approach ventriculostomy . Stable ventricular configuratio n. Stable right basal ganglia acute intraparenchymal hemorrhage with intraventricular extension. Mass effect with sulcal effacement and increased suprasellar cistern effacement. Acute hypoxic resp failure Prior old stroke Hyperlipidemia Tobacco abuse Dense left hemiparesis Plan: Continue with Cardene drip and try to wean off as per bridal sales consultant Continue with supportive measures A patient gets weaned off his drip he will be transferred to a different floor to continue with her recovery Patient will certainly require placement History of Present Illness History of Present Illness 02/23/2020 Patient now extubated. Patient continues to do fairly well Still left-sided hemiparesis Laboratory data reviewed We will try to wean off Cardene drip Follow national sales consultant recommendations 02/22/2020 Patient seen and examined in the ICU He remains about the same Can barely say 1 word Very sedated and obtunded Has mitts on for patient safety He is on a Cardene drip Has Precedex Also has IV Levaquin Chart reviewed Discussed with RN 02/21/2020 Patient seen and examined in the ICU He is about the same as yesterday makes eye contact tries to speak but I cannot understand him too much Discussed with RN Chart reviewed 02/20/2020 Patient seen and examined in the ICU He is a little more alert he made eye contact with me I asked him if he could hear me he clearly stated yes Discussed with RN Discussed with director case management Chart reviewed next Discussed with respiratory therapy 02/19/2020 Patient seen and examined in the ICU Yesterday pulled out 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 [employer]PER[employer] pressure monitor and we still have it out for now The CAT scan repeat of the head yesterday showed decrease size of the bleed I discussed the case with director case management I reviewed the chart Discussed with RN He remains critically ill 02/18/2020 Patient seen and examined in the ICU He has mitts on but somehow was 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 and pulled out I discussed case with the director case management and RN Chart reviewed 02/17/2020 Patient seen and examined in the ICU He is on BiPAP His daughter is present Discussed with RN Discussed with case management Chart reviewed Vitals Vitals Vital Signs Date Time Temp Pulse Resp B/P (MAP) Pulse Ox O2 Delivery O2 Flow Rate FiO2 02/23/20 07:56 96 Room Air 02/23/20 07:00 98.2 106 24 118/69 (85) 98.2 Physical Exam Physical Exam General: Other (Makes eye contact tries to talk but I cannot understand) Heart: Regular rate Lungs: Clear Abdomen: Normal bowel sounds Extremities: No cyanosis General: Other (Makes eye contact tries to talk but I cannot understand) Heart: Regular rate Lungs: Crackles Abdomen: Normal bowel sounds Extremities: No cyanosis Assessment and Plan Assessmemt and Plan Problems Medical Problems: (1) Intraparenchymal hemorrhage of brain Status: Acute Comment Review of Relevant I have reviewed the following items faraz (where applicable) has been applied. Labs Laboratory Tests Test 02/22/20 05:20 White Blood Count 9.0 x10^3/uL (4.0-11.0) Red Blood Count 4.66 x10^6/uL (4.30-5.70) Hemoglobin 14.0 g/dL (13.0-17.5) Hematocrit 41.4 % (39.0-53.0) Mean Corpuscular Volume 89 fL (79-100) Mean Corpuscular Hemoglobin 30 pg (25-35) Mean Corpuscular Hemoglobin Concent 34 g/dL (31-37) Red Cell Distribution Width 13.8 % (11.5-14.5) Platelet Count 211 x10^3/uL (140-400) Neutrophils (%) (Auto) 86 % (31-73) Lymphocytes (%) (Auto) 6 % (24-48) Monocytes (%) (Auto) 8 % (0-9) Eosinophils (%) (Auto) 0 % (0-3) Basophils (%) (Auto) 0 % (0-3) Neutrophils # (Auto) 7.8 x10^3/uL (1.8-7.7) Lymphocytes # (Auto) 0.5 x10^3/uL (1.0-4.8) Monocytes # (Auto) 0.7 x10^3/uL (0.0-1.1) Eosinophils # (Auto) 0.0 x10^3/uL (0.0-0.7) Basophils # (Auto) 0.0 x10^3/uL (0.0-0.2) Sodium Level 145 mmol/L (136-145) Potassium Level 4.3 mmol/L (3.5-5.1) Chloride Level 109 mmol/L (98-107) Carbon Dioxide Level 26 mmol/L (21-32) Anion Gap 10 (6-14) Blood Urea Nitrogen 34 mg/dL (8-26) Creatinine 1.0 mg/dL (0.7-1.3) Estimated GFR (Cockcroft-Gault) 75.2 Glucose Level 260 mg/dL (70-99) Calcium Level 8.3 mg/dL (8.5-10.1) Medications Current Medications Nicardipine HCl 50 mg/Sodium Chloride 250 ml @ 12.5 mls/hr CONT PRN IV SEE I/O RECORD Last administered on 02/23/20at 04:32; Start 02/14/20 at 03:30 Ondansetron HCl (Zofran) 8 mg 1X ONCE IVP Last administered on 02/14/20at 03:48; Start 02/14/20 at 04:00; Stop 02/14/20 at 04:01; Status DC Metoclopramide HCl (Reglan Vial) 10 mg STK-MED ONCE .ROUTE ; Start 02/14/20 at 04:00; Stop 02/14/20 at 04:00; Status DC Diphenhydramine HCl (Benadryl) 50 mg STK-MED ONCE .ROUTE ; Start 02/14/20 at 04:02; Stop 02/14/20 at 04:02; Status DC Hydromorphone HCl (Dilaudid) 2 mg STK-MED ONCE .ROUTE ; Start 02/14/20 at 04:02; Stop 02/14/20 at 04:03; Status DC Lidocaine HCl (Lidocaine 1% 20ml Vial) 20 ml STK-MED ONCE .ROUTE ; Start 02/14/20 at 04:11; Stop 02/14/20 at 04:12; Status DC Ondansetron HCl (Zofran) 4 mg PRN Q8HRS PRN IV NAUSEA/VOMITING 1ST CHOICE; Start 02/14/20 at 04:45; Stop 02/15/20 at 04:44; Status DC Morphine Sulfate (Morphine Sulfate) 4 mg PRN Q2HR PRN IV SEVERE PAIN 7-10; Start 02/14/20 at 04:45; Stop 02/15/20 at 04:44; Status DC Rocuronium [place] (Zemuron) 100 mg 1X ONCE IV Last administered on 02/14/20at 04:56; Start 02/14/20 at 05:00; Stop 02/14/20 at 05:01; Status DC Etomidate (Amidate) 20 mg 1X ONCE IV Last administered on 02/14/20at 04:56; Start 02/14/20 at 05:00; Stop 02/14/20 at 05:01; Status DC Fentanyl Citrate (Fentanyl 2ml Vial) 100 mcg 1X ONCE IVP Last administered on 02/14/20at 04:55; Start 02/14/20 at 05:00; Stop 02/14/20 at 05:01; Status DC Propofol (Diprivan) 200 mg STK-MED ONCE IV ; Start 02/14/20 at 05:02; Stop 02/14/20 at 05:03; Status DC Propofol 50 ml @ As Directed STK-MED ONCE IV ; Start 02/14/20 at 05:03; Stop 02/14/20 at 05:03; Status DC Propofol (Diprivan) 200 mg 1X ONCE IV ; Start 02/14/20 at 05:30; Stop 02/14/20 at 05:31; Status DC Vancomycin HCl 250 ml @ 250 mls/hr PREOP PRN PRN IV PREOP Last administered on 02/14/20at 06:48; Start 02/14/20 at 06:00; Stop 02/15/20 at 05:59; Status DC Propofol 100 ml @ 0 mls/hr CONT PRN IV SEE I/O RECORD Last administered on 02/14/20at 11:30; Start 02/14/20 at 06:30 Fentanyl Citrate (Fentanyl 2ml Vial) 50 mcg 1X ONCE IVP Last administered on 02/14/20at 06:48; Start 02/14/20 at 07:00; Stop 02/14/20 at 07:01; Status DC Lidocaine HCl (Xylocaine-Mpf 1% 2ml Vial) 2 ml STK-MED ONCE .ROUTE ; Start 02/14/20 at 06:43; Stop 02/14/20 at 06:43; Status DC Fentanyl Citrate (Fentanyl 2ml Vial) 50 mcg 1X ONCE IVP Last administered on 02/14/20at 07:23; Start 02/14/20 at 07:30; Stop 02/14/20 at 07:31; Status DC Fentanyl Citrate 30 ml @ 2.5 mls/hr CONT PRN IV SEE PROTOCOL Last administered on 02/15/20at 09:14; Start 02/14/20 at 07:30 Fentanyl Citrate (Fentanyl 2ml Vial) 25 mcg PRN Q1HR PRN IV SEE COMMENTS; Start 02/14/20 at 07:30; Stop 02/15/20 at 18:51; Status DC Fentanyl Citrate (Fentanyl 2ml Vial) 50 mcg PRN Q1HR PRN IV SEE COMMENTS; Start 02/14/20 at 07:30; Stop 02/15/20 at 18:51; Status DC Famotidine (Pepcid Vial) 20 mg BID IVP ; Start 02/14/20 at 21:00; Stop 02/14/20 at 16:18; Status DC Potassium Chloride/Dextrose/ Sod Cl 1,000 ml @ 50 mls/hr Q20H IV Last administered on 02/23/20at 04:34; Start 02/14/20 at 11:30 Pantoprazole Sodium (PROTONIX VIAL for IV PUSH) 40 mg DAILYAC IVP Last administered on 02/23/20at 07:30; Start 02/15/20 at 07:30 Vancomycin HCl 1 gm/Sodium Chloride 250 ml @ 250 mls/hr Q12H IV Last administered on 02/17/20at 04:35; Start 02/15/20 at 17:00; Stop 02/17/20 at 07:34; Status DC Vancomycin HCl (Vanco Per Pharmacy) 1 each PRN DAILY PRN MC SEE COMMENTS; Sta rt 02/15/20 at 16:15; Stop 02/17/20 at 07:35; Status DC Fentanyl Citrate (Fentanyl 2ml Vial) 25 mcg Q1HR ONCE IV Last administered on 02/15/20at 18:54; Start 02/15/20 at 19:00; Stop 02/15/20 at 19:01; Status DC Fentanyl Citrate (Fentanyl 2ml Vial) 25 mcg PRN Q1HR PRN IVP SEVERE PAIN 7-10 Last administered on 02/20/20at 17:01; Start 02/15/20 at 22:30 Cefazolin Sodium/ Dextrose (Ancef 2gm Premix) 2 gm STK-MED ONCE IV ; Start 02/14/20 at 07:00; Stop 02/16/20 at 06:46; Status DC Dexamethasone Sodium Phosphate (Decadron) 4 mg Q6HRS IVP Last administered on 02/22/20at 12:04; Start 02/16/20 at 12:00; Stop 02/22/20 at 15:31; Status DC Dexamethasone Sodium Phosphate (Decadron) 4 mg 1X ONCE IVP Last administered on 02/16/20at 07:57; Start 02/16/20 at 08:00; Stop 02/16/20 at 08:01; Status DC Dexmedetomidine HCl 400 mcg/ Sodium Chloride 100 ml @ 0 mls/hr CONT PRN IV PER PROTOCOL Last administered on 02/21/20at 23:32; Start 02/16/20 at 08:30 Sodium Chloride 500 ml @ 500 mls/hr 1X PRN PRN IV SEE COMMENTS; Start 02/16/20 at 08:30 Atropine Sulfate (ATROPINE 0.5mg SYRINGE) 0.5 mg PRN Q5MIN PRN IV SEE COMMENTS; Start 02/16/20 at 08:30 Levofloxacin/ Dextrose 100 ml @ 100 mls/hr Q24H IV Last administered on 02/22/20at 12:03; Start 02/16/20 at 12:00; Stop 02/22/20 at 13:37; Status DC Albuterol/ Ipratropium (Duoneb) 3 ml RTQID NEB Last administered on 02/23/20at 07:56; Start 02/16/20 at 12:00 Lorazepam (Ativan Inj) 1 mg PRN Q2HRS PRN IVP ANXIETY / AGITATION Last administered on 02/23/20at 00:00; Start 02/18/20 at 09:00 Metoprolol Tartrate (Lopressor Vial) 5 mg Q6HRS IVP Last administered on 02/23/20at 06:26; Start 02/22/20 at 10:30 Active Scripts Active Reported Flomax (Tamsulosin Hcl) 0.4 Mg Cap.er.24h 1 Cap PO DAILY Vitals/I & O Vital Sign - Last 24 Hours 02/22/20 02/22/20 02/22/20 02/22/20 09:00 10:00 10:15 11:00 Temp 98.4 98.0 98.4 98.0 Pulse 118 133 133 106 Resp 24 20 20 B/P (MAP) 165/92 (116) 178/88 (118) 178/88 164/80 (108) Pulse Ox 95 95 96 O2 Delivery Room Air Room Air Room Air 02/22/20 02/22/20 02/22/20 02/22/20 11:47 12:00 12:00 13:06 Temp 98.3 98.7 98.3 98.7 Pulse 116 118 Resp 24 B/P (MAP) 163/85 (111) 154/77 (102) Pulse Ox 98 96 96 O2 Delivery Room Air Room Air Room Air Room Air 02/22/20 02/22/20 02/22/20 02/22/20 14:06 14:26 15:36 16:05 Temp 98.4 98.4 Pulse 119 122 Resp 20 B/P (MAP) 167/80 (109) 126/67 (86) Pulse Ox 95 94 O2 Delivery Room Air Room Air Room Air 02/22/20 02/22/20 02/22/20 02/22/20 16:18 17:00 17:46 18:10 Pulse 120 124 124 102 Resp 24 24 24 B/P (MAP) 144/75 (98) 143/80 (101) 143/80 128/58 (81) Pulse Ox 95 95 95 O2 Delivery Room Air Room Air Room Air 02/22/20 02/22/20 02/22/20 02/22/20 19:00 20:00 20:00 20:01 Temp 99.3 99.0 99.3 99.0 Pulse 112 104 Resp 26 B/P (MAP) 133/71 (91) 105/62 (76) Pulse Ox 95 94 93 O2 Delivery Room Air Room Air Room Air Room Air 02/22/20 02/22/20 02/22/20 02/22/20 21:00 22:00 23:00 23:59 Temp 99.0 99.0 Pulse 112 116 116 Resp 28 32 31 B/P (MAP) 142/74 (96) 140/74 (96) 146/74 (98) Pulse Ox 95 95 95 O2 Delivery Room Air Room Air Room Air Room Air 02/23/20 02/23/20 02/23/20 02/23/20 00:00 00:03 01:00 02:00 Temp 98.9 98.9 Pulse 96 113 112 104 Resp 24 25 B/P (MAP) 144/77 (99) 115/65 127/72 (90) 128/72 (90) Pulse Ox 95 95 96 O2 Delivery Room Air Room Air Room Air 02/23/20 02/23/20 02/23/20 02/23/20 03:00 04:00 04:00 05:00 Temp 98.3 98.3 Pulse 102 108 108 Resp 27 23 26 B/P (MAP) 108/67 (81) 135/70 (91) 107/70 (82) Pulse Ox 95 96 94 O2 Delivery Room Air Room Air Room Air Room Air 02/23/20 02/23/20 02/23/20 02/23/20 06:00 06:26 07:00 07:52 Temp 98.3 98.2 98.3 98.2 Pulse 98 98 106 Resp 23 24 B/P (MAP) 104/64 (77) 104/64 118/69 (85) Pulse Ox 96 96 O2 Delivery Room Air Room Air Room Air 02/23/20 07:56 Pulse Ox 96 O2 Delivery Room Air Intake and Output 02/22/20 02/22/20 02/23/20 15:00 23:00 07:00 Intake Total 593.3 ml 588.7 ml 1431 ml Output Total 900 ml 600 ml 600 ml Balance -306.7 ml -11.3 ml 831 ml Justicifation of Admission Dx: Justifications for Admission: Justification of Admission Dx: Yes Acute Hemorrhagic Stroke: Acute Hemorrhagic Stroke JADE CLAROS MD Feb 23, 2020 09:01
--- NOTE | 2020-02-23 09:58 | PDOC ---
PULMONARY PROGRESS NOTES DATE: 02/23/20 TIME: 09:57 Subjective sleepy, off BIPAP on cardene Vitals Vital Signs Date Time Temp Pulse Resp B/P (MAP) Pulse Ox O2 Delivery O2 Flow Rate FiO2 02/23/20 09:00 105 24 129/75 (93) 94 Room Air 02/23/20 07:00 98.2 98.2 General: No acute distress Lungs: Crackles Cardiovascular: S1, S2 Abdomen: Soft, Non-tender Neuro Exam: Alert Extremities: Other (edema) Skin: Warm Labs Laboratory Tests Test 02/22/20 05:20 White Blood Count 9.0 x10^3/uL (4.0-11.0) Red Blood Count 4.66 x10^6/uL (4.30-5.70) Hemoglobin 14.0 g/dL (13.0-17.5) Hematocrit 41.4 % (39.0-53.0) Mean Corpuscular Volume 89 fL (79-100) Mean Corpuscular Hemoglobin 30 pg (25-35) Mean Corpuscular Hemoglobin Concent 34 g/dL (31-37) Red Cell Distribution Width 13.8 % (11.5-14.5) Platelet Count 211 x10^3/uL (140-400) Neutrophils (%) (Auto) 86 % (31-73) Lymphocytes (%) (Auto) 6 % (24-48) Monocytes (%) (Auto) 8 % (0-9) Eosinophils (%) (Auto) 0 % (0-3) Basophils (%) (Auto) 0 % (0-3) Neutrophils # (Auto) 7.8 x10^3/uL (1.8-7.7) Lymphocytes # (Auto) 0.5 x10^3/uL (1.0-4.8) Monocytes # (Auto) 0.7 x10^3/uL (0.0-1.1) Eosinophils # (Auto) 0.0 x10^3/uL (0.0-0.7) Basophils # (Auto) 0.0 x10^3/uL (0.0-0.2) Sodium Level 145 mmol/L (136-145) Potassium Level 4.3 mmol/L (3.5-5.1) Chloride Level 109 mmol/L (98-107) Carbon Dioxide Level 26 mmol/L (21-32) Anion Gap 10 (6-14) Blood Urea Nitrogen 34 mg/dL (8-26) Creatinine 1.0 mg/dL (0.7-1.3) Estimated GFR (Cockcroft-Gault) 75.2 Glucose Level 260 mg/dL (70-99) Calcium Level 8.3 mg/dL (8.5-10.1) Medications Active Scripts Medications Dose Route/Sig Max Daily Dose Days Date Category Flomax (Tamsulosin Hcl) 0.4 Mg Cap.er.24h 1 Cap PO DAILY 02/14/20 Reported Comments CXR IMPRESSION: Bibasilar heterogeneous opacities, which could represent subsegmental atelectasis, infection, or aspiration. Impression . IMPRESSION: 1. Acute respiratory failure secondary to cerebrovascular accident., Right lower lobe atelectasis, possible aspiration pneumonia improved 2. Hypertensive crisis. 3. 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 4. Status post ventriculostomy. 5. Intracerebral bleeding. 6. Encephalopathy secondary to above. improved 7. History of hypertension. 8. History of previous cerebrovascular accident. 9. Tobacco dependent. 10. Abnormal chest x-ray Plan . BiPAP prn MS improving wean FIO2 as tolerated Empiric antibiotic dexamethasone per neurosurgery abx day 7 will stop Follow neurosurgery and neurology recs Cont. aggressive treatment of HTN, on nicardipine DVT/GI PPX Pulmonary status depends on neuro improvement clinically improving is very weak cont pt ot I had d/w son . agrees with DNR Spoke with RN/RT ABRAN BARAKAT MD Feb 23, 2020 09:58
[2020-02-23] MEDS: hydrALAZINE 20 MG/ML VIAL. IVP SCH ×3 (10:19→20:08)
--- NOTE | 2020-02-23 19:27 | CONS ---
DATE OF CONSULTATION: 02/23/2020 PULMONARY CONSULTATION ATTENDING PHYSICIAN: Dr. Land. REASON FOR CONSULTATION: The patient was seen at the request of Dr. Land for rehab evaluation. HISTORY OF PRESENT ILLNESS: This is a 64-year-old male, admitted with headache and weakness. He went to bed, woke up with severe headache, went back to sleep and woke up again approximately half an hour prior to the arrival with continued severe headache. He was also noted with left upper and lower extremity weakness and some facial asymmetry. PAST MEDICAL HISTORY: Includes cerebrovascular accident, hypercholesterolemia, hernia repair. He is current every day smoker. KNOWN ALLERGIC TO PENICILLIN. Family history of hypercholesterolemia and hypertension. He lives alone, had stairs for him to get into the house plus basement. He has been independent with mobility and self-care skills prior to the present hospitalization, not using any assistive devices. The patient was found with intraparenchymal hemorrhage of the brain and he had hydrocephalus, main hemorrhage is right thalamus, intraventricular extension of the hemorrhage filling much of the right lateral ventricle extending downwards through the fourth ventricle with associated edema exerting mass effect on the foramen of Monro and a portion of the third ventricle, dilatation of the right lateral ventricle temporal horn developing hydrocephalus. He had right frontal approach ventriculostomy. The patient was treated for acute hypoxic respiratory failure. The patient is requiring Cardene drip. The patient is being followed by physical therapy, occupational therapy and speech pathology. PHYSICAL EXAMINATION: The patient on physical examination today revealed a middle-aged male, awake, follows some commands no obvious visual field cut noted. No facial asymmetry noted. He had 4+5/5 grade muscle strength in his right upper and lower extremities. On the left side, he had trace left shoulder adduction, extension and internal rotation and trace left hip extension and adduction, no other voluntary motion noted in his left upper and lower extremities. Sensory examination is incomplete. Deep tendon reflexes are brisk on the left side, plantar reflexes extensor on the left side. He had positive Kellre sign on the left side. He had some edema of his left hand. He had full range of motion of all 4 extremity joints. He had an indwelling Sebastian catheter in place, receiving IV fluids. ASSESSMENT: Recent intraparenchymal thalamic hemorrhage with intraventricular rupture, status post right frontal approach ventriculostomy for treatment of hydrocephalus. The patient with acute hypoxic respiratory failure, left hemiparesis, spastic. The patient with known hypercholesterolemia, old cerebrovascular accident without any residual deficits, tobaccoism. RECOMMENDATIONS: Agree with the plans for physical therapy, occupational therapy and speech pathology and to screen and transfer to acute rehab unit when medically stable. Dr. Land, I appreciate asking me to participate in the care of this interesting patient. I will be glad to follow him with you as needed for his rehabilitation. CYNDEE VASQUEZ MD DR: TRACY/dean JOB#: [id number] / [id number]
[2020-02-24] VITALS (14 sets, daily range): BP systolic 105–159; BP diastolic 60–91
[2020-02-24] MEDS: METOPROLOL TARTRATE 5 MG/5 ML VIAL. IVP SCH ×5 (00:16→23:53)
[2020-02-24] MEDS: POTASSIUM CL 20MEQ D5-0.45NACL 1,000 ML IV SCH (00:16)
[2020-02-24] MEDS: hydrALAZINE 20 MG/ML VIAL. IVP SCH ×7 (02:14→23:52)
[2020-02-24] MEDS: fentaNYL PF VIAL 100 MCG/2 ML VIAL IVP PRN (04:26)
--- NOTE | 2020-02-24 07:50 | PDOC ---
PROGRESS NOTES Date of Service: DATE: 02/24/20 TIME: 07:45 Chief Complaint Chief Complaint Intraparenchymal hemorrhage of brain (thalamic hemorrhage with intraventricular rupture) Acute intraparenchymal hematoma centered within the right thalamus with a volume of approximately 14 cc. Intraventricular extension of hemorrhage filling much of the right lateral ventricle and extending downwards through the fourth ventricle.hematoma and associated edema exert mass effect on the foramen of Prieto and a portion of the third ventricle. dilatation of the right lateral ventricle temporal horn developing hydrocephalus. 02/13 ctRight frontal approach ventriculostomy . Stable ventricular configuratio n. Stable right basal ganglia acute intraparenchymal hemorrhage with intraventricular extension. Mass effect with sulcal effacement and increased suprasellar cistern effacement. Acute hypoxic resp failure Prior old stroke Hyperlipidemia Tobacco abuse Dense left hemiparesis Plan: Continue with Cardene drip and try to wean off as per [employer] consultant Continue with supportive measures A patient gets weaned off his drip he will be transferred to a different floor to continue with her recovery Patient will certainly require placement will start procalamine to provide nutrition patient stable for transfer to the floor failed swallow, he may benefit from a reassessment over the next few days, patient would most likely not do well with dobhoff tube sice he would most likely dislodged it due to the involuntary movements he has History of Present Illness History of Present Illness 02/24/2020 Patient with no acute events reported overnight, patient failed swallow study will start procalamine reeval in the next few days Off Cardene drip transfer to floor when bed available 02/23/2020 Patient now extubated. Patient continues to do fairly well Still left-sided hemiparesis Laboratory data reviewed We will try to wean off Cardene drip Follow change management consultant recommendations 02/22/2020 Patient seen and examined in the ICU He remains about the same Can barely say 1 word Very sedated and obtunded Has mitts on for patient safety He is on a Cardene drip Has Precedex Also has IV Levaquin Chart reviewed Discussed with RN 02/21/2020 Patient seen and examined in the ICU He is about the same as yesterday makes eye contact tries to speak but I cannot understand him too much Discussed with RN Chart reviewed 02/20/2020 Patient seen and examined in the ICU He is a little more alert he made eye contact with me I asked him if he could hear me he clearly stated yes Discussed with RN Discussed with ed case manager Chart reviewed next Discussed with respiratory therapy 02/19/2020 Patient seen and examined in the ICU Yesterday pulled out his [employer] pressure monitor and we still have it out for now The CAT scan repeat of the head yesterday showed decrease size of the bleed I discussed the case with ed case manager I reviewed the chart Discussed with RN He remains critically ill 02/18/2020 Patient seen and examined in the ICU He has mitts on but somehow was able to squeeze onto his [employer] monitor tube and pulled out I discussed case with the ed case manager and RN Chart reviewed 02/17/2020 Patient seen and examined in the ICU He is on BiPAP His daughter is present Discussed with RN Discussed with case management Chart reviewed Vitals Vitals Vital Signs Date Time Temp Pulse Resp B/P (MAP) Pulse Ox O2 Delivery O2 Flow Rate FiO2 02/24/20 07:00 80 24 118/74 (89) 94 Room Air 02/24/20 04:00 98.5 98.5 Physical Exam Physical Exam General: Other (Makes eye contact tries to talk but I cannot understand) Heart: Regular rate Lungs: Clear Abdomen: Normal bowel sounds Extremities: No cyanosis General: Other (Makes eye contact tries to talk but I cannot understand) Heart: Regular rate Lungs: Crackles Abdomen: Normal bowel sounds Extremities: No cyanosis Assessment and Plan Assessmemt and Plan Problems Medical Problems: (1) Intraparenchymal hemorrhage of brain Status: Acute Comment Review of Relevant I have reviewed the following items faraz (where applicable) has been applied. Medications Current Medications Nicardipine HCl 50 mg/Sodium Chloride 250 ml @ 12.5 mls/hr CONT PRN IV SEE I/O RECORD Last administered on 02/23/20at 09:50; Start 02/14/20 at 03:30 Ondansetron HCl (Zofran) 8 mg 1X ONCE IVP Last administered on 02/14/20at 03:48; Start 02/14/20 at 04:00; Stop 02/14/20 at 04:01; Status DC Metoclopramide HCl (Reglan Vial) 10 mg STK-MED ONCE .ROUTE ; Start 02/14/20 at 04:00; Stop 02/14/20 at 04:00; Status DC Diphenhydramine HCl (Benadryl) 50 mg STK-MED ONCE .ROUTE ; Start 02/14/20 at 04:02; Stop 02/14/20 at 04:02; Status DC Hydromorphone HCl (Dilaudid) 2 mg STK-MED ONCE .ROUTE ; Start 02/14/20 at 04:02; Stop 02/14/20 at 04:03; Status DC Lidocaine HCl (Lidocaine 1% 20ml Vial) 20 ml STK-MED ONCE .ROUTE ; Start 02/14/20 at 04:11; Stop 02/14/20 at 04:12; Status DC Ondansetron HCl (Zofran) 4 mg PRN Q8HRS PRN IV NAUSEA/VOMITING 1ST CHOICE; Start 02/14/20 at 04:45; Stop 02/15/20 at 04:44; Status DC Morphine Sulfate (Morphine Sulfate) 4 mg PRN Q2HR PRN IV SEVERE PAIN 7-10; Start 02/14/20 at 04:45; Stop 02/15/20 at 04:44; Status DC Rocuronium [place] (Zemuron) 100 mg 1X ONCE IV Last administered on 02/14/20at 04:56; Start 02/14/20 at 05:00; Stop 02/14/20 at 05:01; Status DC Etomidate (Amidate) 20 mg 1X ONCE IV Last administered on 02/14/20at 04:56; Start 02/14/20 at 05:00; Stop 02/14/20 at 05:01; Status DC Fentanyl Citrate (Fentanyl 2ml Vial) 100 mcg 1X ONCE IVP Last administered on 02/14/20at 04:55; Start 02/14/20 at 05:00; Stop 02/14/20 at 05:01; Status DC Propofol (Diprivan) 200 mg STK-MED ONCE IV ; Start 02/14/20 at 05:02; Stop 01/17 03/07 at 05:03; Status DC Propofol 50 ml @ As Directed STK-MED ONCE IV ; Start 02/14/20 at 05:03; Stop 02/14/20 at 05:03; Status DC Propofol (Diprivan) 200 mg 1X ONCE IV ; Start 02/14/20 at 05:30; Stop 02/14/20 at 05:31; Status DC Vancomycin HCl 250 ml @ 250 mls/hr PREOP PRN PRN IV PREOP Last administered on 02/14/20at 06:48; Start 02/14/20 at 06:00; Stop 02/15/20 at 05:59; Status DC Propofol 100 ml @ 0 mls/hr CONT PRN IV SEE I/O RECORD Last administered on 02/14/20at 11:30; Start 02/14/20 at 06:30 Fentanyl Citrate (Fentanyl 2ml Vial) 50 mcg 1X ONCE IVP Last administered on 02/14/20at 06:48; Start 02/14/20 at 07:00; Stop 02/14/20 at 07:01; Status DC Lidocaine HCl (Xylocaine-Mpf 1% 2ml Vial) 2 ml STK-MED ONCE .ROUTE ; Start 02/14/20 at 06:43; Stop 02/14/20 at 06:43; Status DC Fentanyl Citrate (Fentanyl 2ml Vial) 50 mcg 1X ONCE IVP Last administered on 02/14/20at 07:23; Start 02/14/20 at 07:30; Stop 02/14/20 at 07:31; Status DC Fentanyl Citrate 30 ml @ 2.5 mls/hr CONT PRN IV SEE PROTOCOL Last administered on 02/15/20at 09:14; Start 02/14/20 at 07:30 Fentanyl Citrate (Fentanyl 2ml Vial) 25 mcg PRN Q1HR PRN IV SEE COMMENTS; S tart 02/14/20 at 07:30; Stop 02/15/20 at 18:51; Status DC Fentanyl Citrate (Fentanyl 2ml Vial) 50 mcg PRN Q1HR PRN IV SEE COMMENTS; Start 02/14/20 at 07:30; Stop 02/15/20 at 18:51; Status DC Famotidine (Pepcid Vial) 20 mg BID IVP ; Start 02/14/20 at 21:00; Stop 02/14/20 at 16:18; Status DC Potassium Chloride/Dextrose/ Sod Cl 1,000 ml @ 50 mls/hr Q20H IV Last administered on 02/24/20at 00:16; Start 02/14/20 at 11:30 Pantoprazole Sodium (PROTONIX VIAL for IV PUSH) 40 mg DAILYAC IVP Last administered on 02/23/20at 07:30; Start 02/15/20 at 07:30 Vancomycin HCl 1 gm/Sodium Chloride 250 ml @ 250 mls/hr Q12H IV Last administered on 02/17/20at 04:35; Start 02/15/20 at 17:00; Stop 02/17/20 at 07:34; Status DC Vancomycin HCl (Vanco Per Pharmacy) 1 each PRN DAILY PRN MC SEE COMMENTS; Start 02/15/20 at 16:15; Stop 02/17/20 at 07:35; Status DC Fentanyl Citrate (Fentanyl 2ml Vial) 25 mcg Q1HR ONCE IV Last administered on 02/15/20at 18:54; Start 02/15/20 at 19:00; Stop 02/15/20 at 19:01; Status DC Fentanyl Citrate (Fentanyl 2ml Vial) 25 mcg PRN Q1HR PRN IVP SEVERE PAIN 7-10 Last administered on 02/24/20at 04:26; Start 02/15/20 at 22:30 Cefazolin Sodium/ Dextrose (Ancef 2gm Premix) 2 gm STK-MED ONCE IV ; Start 02/14/20 at 07:00; Stop 02/16/20 at 06:46; Status DC Dexamethasone Sodium Phosphate (Decadron) 4 mg Q6HRS IVP Last administered on 02/22/20at 12:04; Start 02/16/20 at 12:00; Stop 02/22/20 at 15:31; Status DC Dexamethasone Sodium Phosphate (Decadron) 4 mg 1X ONCE IVP Last administered on 02/16/20at 07:57; Start 02/16/20 at 08:00; Stop 02/16/20 at 08:01; Status DC Dexmedetomidine HCl 400 mcg/ Sodium Chloride 100 ml @ 0 mls/hr CONT PRN IV PER PROTOCOL Last administered on 02/21/20at 23:32; Start 02/16/20 at 08:30 Sodium Chloride 500 ml @ 500 mls/hr 1X PRN PRN IV SEE COMMENTS; Start 02/16/20 at 08:30 Atropine Sulfate (ATROPINE 0.5mg SYRINGE) 0.5 mg PRN Q5MIN PRN IV SEE COMMENTS; Start 02/16/20 at 08:30 Levofloxacin/ Dextrose 100 ml @ 100 mls/hr Q24H IV Last administered on 02/22/20at 12:03; Start 02/16/20 at 12:00; Stop 02/22/20 at 13:37; Status DC Albuterol/ Ipratropium (Duoneb) 3 ml RTQID NEB Last administered on 02/23/20at 20:15; Start 02/16/20 at 12:00 Lorazepam (Ativan Inj) 1 mg PRN Q2HRS PRN IVP ANXIETY / AGITATION Last administered on 02/24/20at 06:45; Start 02/18/20 at 09:00 Metoprolol Tartrate (Lopressor Vial) 5 mg Q6HRS IVP Last administered on 02/24/20at 06:45; Start 02/22/20 at 10:30 Hydralazine HCl (Apresoline Inj) 10 mg Q4HRS IVP Last administered on 02/24/20at 02:14; Start 02/23/20 at 10:15 Active Scripts Active Reported Flomax (Tamsulosin Hcl) 0.4 Mg Cap.er.24h 1 Cap PO DAILY Vitals/I & O Vital Sign - Last 24 Hours 02/23/20 02/23/20 02/23/20 02/23/20 07:52 07:56 08:00 09:00 Pulse 108 105 Resp 22 24 B/P (MAP) 123/62 (82) 129/75 (93) Pulse Ox 96 99 94 O2 Delivery Room Air Room Air Room Air Room Air 02/23/20 02/23/20 02/23/20 02/23/20 10:00 10:19 11:00 11:53 Temp 98.4 98.4 Pulse 118 118 116 116 Resp 24 22 B/P (MAP) 157/73 (101) 157/73 136/64 (88) 136/64 Pulse Ox 95 96 O2 Delivery Room Air Room Air 02/23/20 02/23/20 02/23/20 02/23/20 12:00 12:01 12:34 13:19 Pulse 100 98 Resp 24 24 B/P (MAP) 131/70 (90) 123/62 (82) Pulse Ox 95 97 95 O2 Delivery Room Air Room Air Room Air Room Air 02/23/20 02/23/20 02/23/20 02/23/20 14:08 15:22 15:42 15:47 Temp 98.5 98.5 Pulse 109 114 114 Resp 20 20 B/P (MAP) 140/75 (96) 156/86 (109) 156/86 Pulse Ox 94 95 O2 Delivery Room Air Room Air Room Air 02/23/20 02/23/20 02/23/20 02/23/20 16:07 16:12 17:09 17:57 Temp 98.3 98.3 Pulse 113 103 103 Resp B/P (MAP) 136/72 (93) 141/90 (107) 141/90 Pulse Ox 95 100 94 O2 Delivery Room Air Room Air Room Air 02/23/20 02/23/20 02/23/20 02/23/20 18:10 19:00 20:00 20:00 Temp 99.3 99.3 Pulse 101 112 102 Resp B/P (MAP) 128/79 (95) 135/79 (97) 143/74 (97) Pulse Ox 96 96 96 O2 Delivery Room Air Room Air Room Air Room Air 02/23/20 02/23/20 02/23/20 02/23/20 20:08 20:15 20:16 20:30 Pulse 102 108 112 Resp B/P (MAP) 143/74 151/73 (99) 139/69 (92) Pulse Ox 98 98 98 O2 Delivery Room Air Room Air Room Air 02/23/20 02/23/20 02/23/20 02/23/20 21:00 22:00 23:00 23:59 Pulse 112 114 106 Resp B/P (MAP) 150/76 (100) 147/78 (101) 118/75 (89) Pulse Ox 96 95 96 O2 Delivery Room Air Room Air Room Air Room Air 02/23/20 02/24/20 02/24/20 02/24/20 23:59 00:16 01:00 02:00 Temp 99.2 99.2 Pulse 103 111 103 103 Resp B/P (MAP) 144/82 (102) 144/83 137/84 (101) 148/61 (90) Pulse Ox 96 96 96 O2 Delivery Room Air Room Air Room Air 02/24/20 02/24/20 02/24/20 02/24/20 02:14 03:00 04:00 04:00 Temp 98.5 98.5 Pulse 104 96 104 Resp B/P (MAP) 148/61 105/60 (75) 140/80 (100) Pulse Ox 95 95 O2 Delivery Room Air Room Air Room Air 02/24/20 02/24/20 02/24/20 02/24/20 04:26 04:50 05:00 06:00 Pulse 90 102 Resp 24 20 24 22 B/P (MAP) 110/70 (83) 134/60 (84) Pulse Ox 95 94 94 99 O2 Delivery Room Air Room Air Room Air Room Air 02/24/20 02/24/20 06:45 07:00 Pulse 104 80 Resp 24 B/P (MAP) 141/78 118/74 (89) Pulse Ox 94 O2 Delivery Room Air Intake and Output 02/23/20 02/23/20 02/24/20 15:00 23:00 07:00 Intake Total 179.8 ml 677.3 ml 694 ml Output Total 800 ml 1300 ml 600 ml Balance -620.2 ml -622.7 ml 94 ml Justicifation of Admission Dx: Justifications for Admission: Justification of Admission Dx: Yes Acute Hemorrhagic Stroke: Acute Hemorrhagic Stroke JADE CLAROS MD Feb 24, 2020 07:50
[2020-02-24] MEDS: AMINO AC 3%/ELECTROLYTE/GLYCER 1,000 ML IV SCH ×2 (08:04→20:49)
[2020-02-24] MEDS: PANTOPRAZOLE IV PUSH 40 MG VIAL. IVP SCH (08:04)
--- NOTE | 2020-02-24 08:44 | PDOC ---
PULMONARY PROGRESS NOTES DATE: 02/24/20 TIME: 08:44 Subjective sleepy, off BIPAP on cardene Vitals Vital Signs Date Time Temp Pulse Resp B/P (MAP) Pulse Ox O2 Delivery O2 Flow Rate FiO2 02/24/20 08:00 97.8 93 25 128/82 (97) 95 Room Air 97.8 General: No acute distress Lungs: Crackles Cardiovascular: S1, S2 Abdomen: Soft, Non-tender Neuro Exam: Alert Extremities: Other (edema) Skin: Warm Medications Active Scripts Medications Dose Route/Sig Max Daily Dose Days Date Category Flomax (Tamsulosin Hcl) 0.4 Mg Cap.er.24h 1 Cap PO DAILY 02/14/20 Reported Comments CXR IMPRESSION: Bibasilar heterogeneous opacities, which could represent subsegmental atelectasis, infection, or aspiration. Impression . IMPRESSION: 1. Acute respiratory failure secondary to cerebrovascular accident., Right lower lobe atelectasis, possible aspiration pneumonia improved 2. Hypertensive crisis. 3. 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 4. Status post ventriculostomy. 5. Intracerebral bleeding. 6. Encephalopathy secondary to above. improved 7. History of hypertension. 8. History of previous cerebrovascular accident. 9. Tobacco dependent. 10. Abnormal chest x-ray Plan . Respiratory status is compensated, We will sign off please call if needed MOOSE PASCAL MD Feb 24, 2020 08:44
[2020-02-24] MEDS: IPRATRPIUM/ALBUTEROL 0.5/2.5MG 3 ML NEBU. NEB SCH ×4 (09:11→19:38)
--- NOTE | 2020-02-24 09:23 | PDOC ---
PROGRESS NOTES Date of Service DATE: 02/24/20 TIME: 09:21 Subjective Subjective No new complaints. Objective Objective Vital Signs Date Time Temp Pulse Resp B/P (MAP) Pulse Ox O2 Delivery O2 Flow Rate FiO2 02/24/20 09:11 96 Room Air 02/24/20 08:48 99 19 128/82 (97) 02/24/20 08:00 97.8 97.8 02/21/20 16:00 3.0 Intake and Output 02/24/20 07:00 Intake Total 1551.1 ml Output Total 2700 ml Balance -1148.9 ml Intake Oral 0 ml IV Total 1551.1 ml Output Urine Total 2700 ml Physical Exam Physical Exam He is awake,supine in bed and no change with his left hemiparesis,except increased muscle tone. Assessment Assessment Problems Medical Problems: (1) Intraparenchymal hemorrhage of brain Status: Acute Plan Plan of Care To continue present rehab efforts as tolerated. Comment Review of Relevant I have reviewed the following items faraz (where applicable) has been applied. Medications Current Medications Nicardipine HCl 50 mg/Sodium Chloride 250 ml @ 12.5 mls/hr CONT PRN IV SEE I/O RECORD Last administered on 02/23/20at 09:50; Start 02/14/20 at 03:30 Ondansetron HCl (Zofran) 8 mg 1X ONCE IVP Last administered on 02/14/20at 03:48; Start 02/14/20 at 04:00; Stop 02/14/20 at 04:01; Status DC Metoclopramide HCl (Reglan Vial) 10 mg STK-MED ONCE .ROUTE ; Start 02/14/20 at 04:00; Stop 02/14/20 at 04:00; Status DC Diphenhydramine HCl (Benadryl) 50 mg STK-MED ONCE .ROUTE ; Start 02/14/20 at 04:02; Stop 02/14/20 at 04:02; Status DC Hydromorphone HCl (Dilaudid) 2 mg STK-MED ONCE .ROUTE ; Start 02/14/20 at 04:02; Stop 02/14/20 at 04:03; Status DC Lidocaine HCl (Lidocaine 1% 20ml Vial) 20 ml STK-MED ONCE .ROUTE ; Start 02/14/20 at 04:11; Stop 02/14/20 at 04:12; Status DC Ondansetron HCl (Zofran) 4 mg PRN Q8HRS PRN IV NAUSEA/VOMITING 1ST CHOICE; Start 02/14/20 at 04:45; Stop 02/15/20 at 04:44; Status DC Morphine Sulfate (Morphine Sulfate) 4 mg PRN Q2HR PRN IV SEVERE PAIN 7-10; Start 02/14/20 at 04:45; Stop 02/15/20 at 04:44; Status DC Rocuronium [place] (Zemuron) 100 mg 1X ONCE IV Last administered on 02/14/20at 04:56; Start 02/14/20 at 05:00; Stop 02/14/20 at 05:01; Status DC Etomidate (Amidate) 20 mg 1X ONCE IV Last administered on 02/14/20at 04:56; Start 02/14/20 at 05:00; Stop 02/14/20 at 05:01; Status DC Fentanyl Citrate (Fentanyl 2ml Vial) 100 mcg 1X ONCE IVP Last administered on 02/14/20at 04:55; Start 02/14/20 at 05:00; Stop 02/14/20 at 05:01; Status DC Propofol (Diprivan) 200 mg STK-MED ONCE IV ; Start 02/14/20 at 05:02; Stop 02/14/20 at 05:03; Status DC Propofol 50 ml @ As Directed STK-MED ONCE IV ; Start 02/14/20 at 05:03; Stop 02/14/20 at 05:03; Status DC Propofol (Diprivan) 200 mg 1X ONCE IV ; Start 02/14/20 at 05:30; Stop 02/14/20 at 05:31; Status DC Vancomycin HCl 250 ml @ 250 mls/hr PREOP PRN PRN IV PREOP Last administered on 02/14/20at 06:48; Start 02/14/20 at 06:00; Stop 02/15/20 at 05:59; Status DC Propofol 100 ml @ 0 mls/hr CONT PRN IV SEE I/O RECORD Last administered on 02/14/20at 11:30; Start 02/14/20 at 06:30 Fentanyl Citrate (Fentanyl 2ml Vial) 50 mcg 1X ONCE IVP Last administered on 02/14/20at 06:48; Start 02/14/20 at 07:00; Stop 02/14/20 at 07:01; Status DC Lidocaine HCl (Xylocaine-Mpf 1% 2ml Vial) 2 ml STK-MED ONCE .ROUTE ; Start 02/14/20 at 06:43; Stop 02/14/20 at 06:43; Status DC Fentanyl Citrate (Fentanyl 2ml Vial) 50 mcg 1X ONCE IVP Last administered on 02/14/20at 07:23; Start 02/14/20 at 07:30; Stop 02/14/20 at 07:31; Status DC Fentanyl Citrate 30 ml @ 2.5 mls/hr CONT PRN IV SEE PROTOCOL Last administered on 02/15/20at 09:14; Start 02/14/20 at 07:30 Fentanyl Citrate (Fentanyl 2ml Vial) 25 mcg PRN Q1HR PRN IV SEE COMMENTS; Start 02/14/20 at 07:30; Stop 02/15/20 at 18:51; Status DC Fentanyl Citrate (Fentanyl 2ml Vial) 50 mcg PRN Q1HR PRN IV SEE COMMENTS; Start 02/14/20 at 07:30; Stop 02/15/20 at 18:51; Status DC Famotidine (Pepcid Vial) 20 mg BID IVP ; Start 02/14/20 at 21:00; Stop 02/14/20 at 16:18; Status DC Potassium Chloride/Dextrose/ Sod Cl 1,000 ml @ 50 mls/hr Q20H IV Last administered on 02/24/20at 00:16; Start 02/14/20 at 11:30 Pantoprazole Sodium (PROTONIX VIAL for IV PUSH) 40 mg DAILYAC IVP Last administered on 02/24/20at 08:04; Start 02/15/20 at 07:30 Vancomycin HCl 1 gm/Sodium Chloride 250 ml @ 250 mls/hr Q12H IV Last administered on 02/17/20at 04:35; Start 02/15/20 at 17:00; Stop 02/17/20 at 07:34; Status DC Vancomycin HCl (Vanco Per Pharmacy) 1 each PRN DAILY PRN MC SEE COMMENTS; St art 02/15/20 at 16:15; Stop 02/17/20 at 07:35; Status DC Fentanyl Citrate (Fentanyl 2ml Vial) 25 mcg Q1HR ONCE IV Last administered on 02/15/20at 18:54; Start 02/15/20 at 19:00; Stop 02/15/20 at 19:01; Status DC Fentanyl Citrate (Fentanyl 2ml Vial) 25 mcg PRN Q1HR PRN IVP SEVERE PAIN 7-10 Last administered on 02/24/20at 04:26; Start 02/15/20 at 22:30 Cefazolin Sodium/ Dextrose (Ancef 2gm Premix) 2 gm STK-MED ONCE IV ; Start 02/14/20 at 07:00; Stop 02/16/20 at 06:46; Status DC Dexamethasone Sodium Phosphate (Decadron) 4 mg Q6HRS IVP Last administered on 02/22/20at 12:04; Start 02/16/20 at 12:00; Stop 02/22/20 at 15:31; Status DC Dexamethasone Sodium Phosphate (Decadron) 4 mg 1X ONCE IVP Last administered on 02/16/20at 07:57; Start 02/16/20 at 08:00; Stop 02/16/20 at 08:01; Status DC Dexmedetomidine HCl 400 mcg/ Sodium Chloride 100 ml @ 0 mls/hr CONT PRN IV PER PROTOCOL Last administered on 02/21/20at 23:32; Start 02/16/20 at 08:30 Sodium Chloride 500 ml @ 500 mls/hr 1X PRN PRN IV SEE COMMENTS; Start 02/16/20 at 08:30 Atropine Sulfate (ATROPINE 0.5mg SYRINGE) 0.5 mg PRN Q5MIN PRN IV SEE COMMENTS; Start 02/16/20 at 08:30 Levofloxacin/ Dextrose 100 ml @ 100 mls/hr Q24H IV Last administered on 02/22/20at 12:03; Start 02/16/20 at 12:00; Stop 02/22/20 at 13:37; Status DC Albuterol/ Ipratropium (Duoneb) 3 ml RTQID NEB Last administered on 02/24/20at 09:11; Start 02/16/20 at 12:00 Lorazepam (Ativan Inj) 1 mg PRN Q2HRS PRN IVP ANXIETY / AGITATION Last administered on 02/24/20at 08:56; Start 02/18/20 at 09:00 Metoprolol Tartrate (Lopressor Vial) 5 mg Q6HRS IVP Last administered on 02/24/20at 06:45; Start 9/6/20 at 10:30 Hydralazine HCl (Apresoline Inj) 10 mg Q4HRS IVP Last administered on 02/24/20at 02:14; Start 02/23/20 at 10:15 Amino Acids/ Glycerin/ Electrolytes 1,000 ml @ 80 mls/hr [id number] IV Last administered on 02/24/20at 08:04; Start 02/24/20 at 08:00 Active Scripts Active Reported Flomax (Tamsulosin Hcl) 0.4 Mg Cap.er.24h 1 Cap PO DAILY Vitals/I & O Vital Sign - Last 24 Hours 02/23/20 02/23/20 02/23/20 02/23/20 10:00 10:19 11:00 11:53 Temp 98.4 98.4 Pulse 118 118 116 116 Resp B/P (MAP) 157/73 (101) 157/73 136/64 (88) 136/64 Pulse Ox 95 96 O2 Delivery Room Air Room Air 02/23/20 02/23/20 02/23/20 02/23/20 12:00 12:01 12:34 13:19 Pulse 100 98 Resp 24 B/P (MAP) 131/70 (90) 123/62 (82) Pulse Ox 95 97 95 O2 Delivery Room Air Room Air Room Air Room Air 02/23/20 02/23/20 02/23/20 02/23/20 14:08 15:22 15:42 15:47 Temp 98.5 98.5 Pulse 109 114 114 Resp B/P (MAP) 140/75 (96) 156/86 (109) 156/86 Pulse Ox 94 95 O2 Delivery Room Air Room Air Room Air 02/23/20 02/23/20 02/23/20 02/23/20 16:07 16:12 17:09 17:57 Temp 98.3 98.3 Pulse 113 103 103 Resp 24 B/P (MAP) 136/72 (93) 141/90 (107) 141/90 Pulse Ox 95 100 94 O2 Delivery Room Air Room Air Room Air 02/23/20 02/23/20 02/23/20 02/23/20 18:10 19:00 20:00 20:00 Temp 99.3 99.3 Pulse 101 112 102 Resp 24 B/P (MAP) 128/79 (95) 135/79 (97) 143/74 (97) Pulse Ox 96 96 96 O2 Delivery Room Air Room Air Room Air Room Air 02/23/20 02/23/20 02/23/20 02/23/20 20:08 20:15 20:16 20:30 Pulse 102 108 112 Resp 26 26 B/P (MAP) 143/74 151/73 (99) 139/69 (92) Pulse Ox 98 98 98 O2 Delivery Room Air Room Air Room Air 02/23/20 02/23/20 02/23/20 02/23/20 21:00 22:00 23:00 23:59 Pulse 112 114 106 Resp 24 24 22 B/P (MAP) 150/76 (100) 147/78 (101) 118/75 (89) Pulse Ox 96 95 96 O2 Delivery Room Air Room Air Room Air Room Air 02/23/20 02/24/20 02/24/20 02/24/20 23:59 00:16 01:00 02:00 Temp 99.2 99.2 Pulse 103 111 103 103 Resp 24 24 20 B/P (MAP) 144/82 (102) 144/83 137/84 (101) 148/61 (90) Pulse Ox 96 96 96 O2 Delivery Room Air Room Air Room Air 02/24/20 02/24/20 02/24/20 02/24/20 02:14 03:00 04:00 04:00 Temp 98.5 98.5 Pulse 104 96 104 Resp 24 24 B/P (MAP) 148/61 105/60 (75) 140/80 (100) Pulse Ox 95 95 O2 Delivery Room Air Room Air Room Air 02/24/20 02/24/20 02/24/20 02/24/20 04:26 04:50 05:00 06:00 Pulse 90 102 Resp 24 20 24 22 B/P (MAP) 110/70 (83) 134/60 (84) Pulse Ox 95 94 94 99 O2 Delivery Room Air Room Air Room Air Room Air 02/24/20 02/24/20 02/24/20 02/24/20 06:45 07:00 08:00 08:00 Pulse 104 80 80 Resp 24 B/P (MAP) 141/78 118/74 (89) 118/74 Pulse Ox 94 O2 Delivery Room Air Room Air 02/24/20 02/24/20 02/24/20 08:00 08:48 09:11 Temp 97.8 97.8 Pulse 93 99 Resp 25 19 B/P (MAP) 128/82 (97) 128/82 (97) Pulse Ox 95 95 96 O2 Delivery Room Air Room Air Room Air Intake and Output 02/23/20 02/23/20 02/24/20 15:00 23:00 07:00 Intake Total 179.8 ml 677.3 ml 694 ml Output Total 800 ml 1300 ml 600 ml Balance -620.2 ml -622.7 ml 94 ml Justifications for Admission Other Justification CYNDEE VASQUEZ MD Feb 24, 2020 09:23
--- NOTE | 2020-02-24 10:01 | NUR ---
Patient ready for transfer to room 200. Report called and given to RN on 2N. Patient's son Jose J called and notified of transfer. All patient belonging bagged and taken with patient.
--- NOTE | 2020-02-24 10:47 | PDOC ---
PROGRESS NOTES Date of Service DATE: 02/24/20 TIME: 10:45 Assessment Problems Medical Problems: (1) Intraparenchymal hemorrhage of brain Status: Acute Pulled out ICP monitor, 02/17 Right thalamic hemorrhage with intraventricular rupture. He developed acute hydrocephalus and required an emergent EVD Acute respiratory failure, extubated. Dense left hemiparesis. Off BiPAP Plan Okay to transfer to telemetry No need for prophylactic anticonvulsants Followup CT scans per neurosurgery Subjective Does not indicate any pain Objective Vital Signs Date Time Temp Pulse Resp B/P (MAP) Pulse Ox O2 Delivery O2 Flow Rate FiO2 02/24/20 09:34 105 28 156/89 (111) 94 Room Air 02/24/20 08:00 97.8 97.8 Intake and Output 02/24/20 07:00 Intake Total 1551.1 ml Output Total 2700 ml Balance -1148.9 ml Intake Oral 0 ml IV Total 1551.1 ml Output Urine Total 2700 ml PHYSICAL EXAM Alert, moves right side possibly to commands, nonsense speech. PERRL. EOMI. CN: no focal findings. Muscle tone: increased on left Muscle strength: Left hemiparesis DTR: 2+ Plantar reflex: extensor on the left Gait: not examined in bed. Sensory exam: no abnormal findings. No cerebellar signs elicited. Review of Relevant I have reviewed the following items faraz (where applicable) has been applied. Medications Current Medications Nicardipine HCl 50 mg/Sodium Chloride 250 ml @ 12.5 mls/hr CONT PRN IV SEE I/O RECORD Last administered on 02/23/20at 09:50; Start 02/14/20 at 03:30 Ondansetron HCl (Zofran) 8 mg 1X ONCE IVP Last administered on 02/14/20at 03:48; Start 02/14/20 at 04:00; Stop 02/14/20 at 04:01; Status DC Metoclopramide HCl (Reglan Vial) 10 mg STK-MED ONCE .ROUTE ; Start 02/14/20 at 04:00; Stop 02/14/20 at 04:00; Status DC Diphenhydramine HCl (Benadryl) 50 mg STK-MED ONCE .ROUTE ; Start 02/14/20 at 04:02; Stop 02/14/20 at 04:02; Status DC Hydromorphone HCl (Dilaudid) 2 mg STK-MED ONCE .ROUTE ; Start 02/14/20 at 04:02; Stop 02/14/20 at 04:03; Status DC Lidocaine HCl (Lidocaine 1% 20ml Vial) 20 ml STK-MED ONCE .ROUTE ; Start 02/14/20 at 04:11; Stop 02/14/20 at 04:12; Status DC Ondansetron HCl (Zofran) 4 mg PRN Q8HRS PRN IV NAUSEA/VOMITING 1ST CHOICE; Start 02/14/20 at 04:45; Stop 02/15/20 at 04:44; Status DC Morphine Sulfate (Morphine Sulfate) 4 mg PRN Q2HR PRN IV SEVERE PAIN 7-10; Start 02/14/20 at 04:45; Stop 02/15/20 at 04:44; Status DC Rocuronium [place] (Zemuron) 100 mg 1X ONCE IV Last administered on 02/14/20at 04:56; Start 02/14/20 at 05:00; Stop 02/14/20 at 05:01; Status DC Etomidate (Amidate) 20 mg 1X ONCE IV Last administered on 02/14/20at 04:56; Start 02/14/20 at 05:00; Stop 02/14/20 at 05:01; Status DC Fentanyl Citrate (Fentanyl 2ml Vial) 100 mcg 1X ONCE IVP Last administered on 02/14/20at 04:55; Start 02/14/20 at 05:00; Stop 02/14/20 at 05:01; Status DC Propofol (Diprivan) 200 mg STK-MED ONCE IV ; Start 02/14/20 at 05:02; Stop 02/14/20 at 05:03; Status DC Propofol 50 ml @ As Directed STK-MED ONCE IV ; Start 02/14/20 at 05:03; Stop 02/14/20 at 05:03; Status DC Propofol (Diprivan) 200 mg 1X ONCE IV ; Start 02/14/20 at 05:30; Stop 02/14/20 at 05:31; Status DC Vancomycin HCl 250 ml @ 250 mls/hr PREOP PRN PRN IV PREOP Last administered on 02/14/20at 06:48; Start 02/14/20 at 06:00; Stop 02/15/20 at 05:59; Status DC Propofol 100 ml @ 0 mls/hr CONT PRN IV SEE I/O RECORD Last administered on 02/14/20at 11:30; Start 02/14/20 at 06:30 Fentanyl Citrate (Fentanyl 2ml Vial) 50 mcg 1X ONCE IVP Last administered on 02/14/20at 06:48; Start 02/14/20 at 07:00; Stop 02/14/20 at 07:01; Status DC Lidocaine HCl (Xylocaine-Mpf 1% 2ml Vial) 2 ml STK-MED ONCE .ROUTE ; Start 02/14/20 at 06:43; Stop 02/14/20 at 06:43; Status DC Fentanyl Citrate (Fentanyl 2ml Vial) 50 mcg 1X ONCE IVP Last administered on 02/14/20at 07:23; Start 02/14/20 at 07:30; Stop 02/14/20 at 07:31; Status DC Fentanyl Citrate 30 ml @ 2.5 mls/hr CONT PRN IV SEE PROTOCOL Last administered on 02/15/20at 09:14; Start 02/14/20 at 07:30 Fentanyl Citrate (Fentanyl 2ml Vial) 25 mcg PRN Q1HR PRN IV SEE COMMENTS; Start 02/14/20 at 07:30; Stop 02/15/20 at 18:51; Status DC Fentanyl Citrate (Fentanyl 2ml Vial) 50 mcg PRN Q1HR PRN IV SEE COMMENTS; Start 02/14/20 at 07:30; Stop 02/15/20 at 18:51; Status DC Famotidine (Pepcid Vial) 20 mg BID IVP ; Start 02/14/20 at 21:00; Stop 02/14/20 at 16:18; Status DC Potassium Chloride/Dextrose/ Sod Cl 1,000 ml @ 50 mls/hr Q20H IV Last administ ered on 02/24/20at 00:16; Start 02/14/20 at 11:30 Pantoprazole Sodium (PROTONIX VIAL for IV PUSH) 40 mg DAILYAC IVP Last administ ered on 02/24/20at 08:04; Start 02/15/20 at 07:30 Vancomycin HCl 1 gm/Sodium Chloride 250 ml @ 250 mls/hr Q12H IV Last administe red on 02/17/20at 04:35; Start 02/15/20 at 17:00; Stop 02/17/20 at 07:34; Status DC Vancomycin HCl (Vanco Per Pharmacy) 1 each PRN DAILY PRN MC SEE COMMENTS; Start 02/15/20 at 16:15; Stop 02/17/20 at 07:35; Status DC Fentanyl Citrate (Fentanyl 2ml Vial) 25 mcg Q1HR ONCE IV Last administered on 02/15/20at 18:54; Start 02/15/20 at 19:00; Stop 02/15/20 at 19:01; Status DC Fentanyl Citrate (Fentanyl 2ml Vial) 25 mcg PRN Q1HR PRN IVP SEVERE PAIN 7-10 Last administered on 02/24/20at 04:26; Start 02/15/20 at 22:30 Cefazolin Sodium/ Dextrose (Ancef 2gm Premix) 2 gm STK-MED ONCE IV ; Start 02/14/20 at 07:00; Stop 02/16/20 at 06:46; Status DC Dexamethasone Sodium Phosphate (Decadron) 4 mg Q6HRS IVP Last administered on 02/22/20at 12:04; Start 02/16/20 at 12:00; Stop 02/22/20 at 15:31; Status DC Dexamethasone Sodium Phosphate (Decadron) 4 mg 1X ONCE IVP Last administered on 02/16/20at 07:57; Start 02/16/20 at 08:00; Stop 02/16/20 at 08:01; Status DC Dexmedetomidine HCl 400 mcg/ Sodium Chloride 100 ml @ 0 mls/hr CONT PRN IV PER PROTOCOL Last administered on 02/21/20at 23:32; Start 02/16/20 at 08:30 Sodium Chloride 500 ml @ 500 mls/hr 1X PRN PRN IV SEE COMMENTS; Start 02/16/20 at 08:30 Atropine Sulfate (ATROPINE 0.5mg SYRINGE) 0.5 mg PRN Q5MIN PRN IV SEE COMMENTS; Start 02/16/20 at 08:30 Levofloxacin/ Dextrose 100 ml @ 100 mls/hr Q24H IV Last administered on 02/22/20at 12:03; Start 02/16/20 at 12:00; Stop 02/22/20 at 13:37; Status DC Albuterol/ Ipratropium (Duoneb) 3 ml RTQID NEB Last administered on 02/24/20at 09:11; Start 02/16/20 at 12:00 Lorazepam (Ativan Inj) 1 mg PRN Q2HRS PRN IVP ANXIETY / AGITATION Last administered on 02/24/20at 08:56; Start 02/18/20 at 09:00 Metoprolol Tartrate (Lopressor Vial) 5 mg Q6HRS IVP Last administered on 02/24/20at 06:45; Start 02/22/20 at 10:30 Hydralazine HCl (Apresoline Inj) 10 mg Q4HRS IVP Last administered on 02/24/20at 02:14; Start 02/23/20 at 10:15 Amino Acids/ Glycerin/ Electrolytes 1,000 ml @ 80 mls/hr [id number] IV Last administered on 02/24/20at 08:04; Start 02/24/20 at 08:00 Active Scripts Active Reported Flomax (Tamsulosin Hcl) 0.4 Mg Cap.er.24h 1 Cap PO DAILY Vitals/I & O Vital Sign - Last 24 Hours 02/23/20 02/23/20 02/23/20 02/23/20 11:00 11:53 12:00 12:01 Pulse 116 116 100 Resp 22 24 B/P (MAP) 136/64 (88) 136/64 131/70 (90) Pulse Ox 96 95 O2 Delivery Room Air Room Air Room Air 02/23/20 02/23/20 02/23/20 02/23/20 12:34 13:19 14:08 15:22 Temp 98.5 98.5 Pulse 98 109 114 Resp 24 20 B/P (MAP) 123/62 (82) 140/75 (96) 156/86 (109) Pulse Ox 97 95 94 95 O2 Delivery Room Air Room Air Room Air Room Air 02/23/20 02/23/20 02/23/20 02/23/20 15:42 15:47 16:07 16:12 Pulse 114 113 Resp 24 B/P (MAP) 156/86 136/72 (93) Pulse Ox 95 100 O2 Delivery Room Air Room Air Room Air 02/23/20 02/23/20 02/23/20 02/23/20 17:09 17:57 18:10 19:00 Temp 98.3 98.3 Pulse 103 103 101 112 Resp 24 20 26 B/P (MAP) 141/90 (107) 141/90 128/79 (95) 135/79 (97) Pulse Ox 94 96 96 O2 Delivery Room Air Room Air Room Air 02/23/20 02/23/20 02/23/20 02/23/20 20:00 20:00 20:08 20:15 Temp 99.3 99.3 Pulse 102 102 108 Resp 24 B/P (MAP) 143/74 (97) 143/74 151/73 (99) Pulse Ox 96 98 O2 Delivery Room Air Room Air Room Air 02/23/20 02/23/20 02/23/20 02/23/20 20:16 20:30 21:00 22:00 Pulse 112 112 114 Resp 24 B/P (MAP) 139/69 (92) 150/76 (100) 147/78 (101) Pulse Ox 98 98 96 95 O2 Delivery Room Air Room Air Room Air Room Air 02/23/20 02/23/20 02/23/20 02/24/20 23:00 23:59 23:59 00:16 Temp 99.2 99.2 Pulse 106 103 111 Resp 24 B/P (MAP) 118/75 (89) 144/82 (102) 144/83 Pulse Ox 96 96 O2 Delivery Room Air Room Air Room Air 02/24/20 02/24/20 02/24/20 02/24/20 01:00 02:00 02:14 03:00 Pulse 103 103 104 96 Resp 20 24 B/P (MAP) 137/84 (101) 148/61 (90) 148/61 105/60 (75) Pulse Ox 96 96 95 O2 Delivery Room Air Room Air Room Air 02/24/20 02/24/20 02/24/20 02/24/20 04:00 04:00 04:26 04:50 Temp 98.5 98.5 Pulse 104 Resp 24 24 20 B/P (MAP) 140/80 (100) Pulse Ox 95 95 94 O2 Delivery Room Air Room Air Room Air Room Air 02/24/20 02/24/20 02/24/20 02/24/20 05:00 06:00 06:45 07:00 Pulse 90 102 104 80 Resp 24 22 24 B/P (MAP) 110/70 (83) 134/60 (84) 141/78 118/74 (89) Pulse Ox 94 99 94 O2 Delivery Room Air Room Air Room Air 9/8/02/24/20 02/24/20 02/24/20 08:00 08:00 08:00 08:48 Temp 97.8 97.8 Pulse 80 93 99 Resp 25 19 B/P (MAP) 118/74 128/82 (97) 128/82 (97) Pulse Ox 95 95 O2 Delivery Room Air Room Air Room Air 02/24/20 02/24/20 09:11 09:34 Pulse 105 Resp 28 B/P (MAP) 156/89 (111) Pulse Ox 96 94 O2 Delivery Room Air Room Air Intake and Output 02/23/20 02/23/20 02/24/20 15:00 23:00 07:00 Intake Total 179.8 ml 677.3 ml 694 ml Output Total 800 ml 1300 ml 600 ml Balance -620.2 ml -622.[address] head without contrast 02/21/2020 12:02 PM INDICATION: Ventricular hemorrhage COMPARISON: CT head 02/18/2020 TECHNIQUE: Multiple axial CT images of the head were obtained from skull base through the vertex without intravenous contrast. FINDINGS: Head: There is redemonstration of right thalamic hemorrhage with intraventricular involvement. Hematoma within the right thalamus measures 3.1 x 3.0 cm, stable. There is persistent midline shift to the left by approximately 0.6 cm, not significantly changed when measured similarly. There is similar degree of intraventricular hemorrhage layering of blood products within the occipital horns bilaterally. No hydrocephalus. There is a linear tract of high attenuation associated with ventriculostomy catheter placement the right frontal lobe. Orbits are normal in appearance with exception of bilateral lens replacement. No new intracranial hemorrhage is identified. There is mild sulcal effacement on the right. Posterior fossa is normal in appearance. Brainstem is normal. Sella and suprasellar cistern are intact. IMPRESSION: Similar pattern of intraparenchymal and intraventricular hemorrhage as described in detail above. Similar degree of midline shift to the left. Justicifation of Admission Dx: Justifications for Admission: Justification of Admission Dx: Yes Acute Hemorrhagic Stroke: Acute Hemorrhagic Stroke TEE FRANCIS MD Feb 24, 2020 10:47
--- NOTE | 2020-02-24 11:36 | NUR ---
SS following up with discharge planning. SS reviewed pt chart and discussed with pt RN. Pt is currently on room air. Pt NPO and failed swallow evaluation on 02/23/2020. Pt on PPN. COVID19 test pending. PT/OT recommended assisted unit. Pt's family wanting pt to go to [facility], ; fax [phone]. SS phoned and faxed referral to [facility]. SS will continue to follow for discharge planning.
[2020-02-25 02:50] VITALS: BP 142/91
[2020-02-25] MEDS: hydrALAZINE 20 MG/ML VIAL. IVP SCH ×5 (04:25→20:47)
[2020-02-25] MEDS: METOPROLOL TARTRATE 5 MG/5 ML VIAL. IVP SCH ×3 (05:17→17:25)
[2020-02-25 07:00] VITALS: BP 144/83
[2020-02-25] MEDS: IPRATRPIUM/ALBUTEROL 0.5/2.5MG 3 ML NEBU. NEB SCH ×4 (07:24→20:20)
[2020-02-25 07:34] LABS: BASO % 0 % (0-3); EOS % 0 % (0-3); HEMATOCRIT 45.6 % (39.0-53.0); LYMPH % 5 % (24-48); MEAN CORPUSCULAR HEMOGLOBIN 30 pg (25-35); MEAN CORPUSCULAR HGB CONC 33 g/dL (31-37); MEAN CORPUSCULAR VOLUME 91 fL (79-100); MONO # 1.5 x10^3/uL (0.0-1.1); MONO % 7 % (0-9); NEUT # 19.5 x10^3/uL (1.8-7.7); NEUT % 88 % (31-73); PLATELET COUNT 162 x10^3/uL (140-400); RED BLOOD COUNT 5.01 x10^6/uL (4.30-5.70); RED CELL DISTRIBUTION WIDTH 14.4 % (11.5-14.5); WHITE BLOOD COUNT 22.1 x10^3/uL (4.0-11.0)
[2020-02-25 07:52] LABS: CALCIUM 8.9 mg/dL (8.5-10.1); CREATININE 0.9 mg/dL (0.7-1.3); POTASSIUM 3.8 mmol/L (3.5-5.1)
[2020-02-25] MEDS: PANTOPRAZOLE IV PUSH 40 MG VIAL. IVP SCH (07:58)
--- NOTE | 2020-02-25 08:32 | PDOC ---
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 He developed acute hydrocephalus and required an emergent EVD, then removed it 02/17 Acute respiratory failure, extubated. Dense left hemiparesis. Plan No need for prophylactic anticonvulsants Followup CT scans per neurosurgery SNU Subjective none Objective Vital Signs Date Time Temp Pulse Resp B/P (MAP) Pulse Ox O2 Delivery O2 Flow Rate FiO2 02/25/20 07:58 105 144/83 02/25/20 07:24 93 Room Air 02/25/20 07:00 98.0 21 98.0 02/24/20 12:00 3.0 Intake and Output 02/25/20 07:00 Intake Total 1000 ml Output Total 2250 ml Balance -1250 ml Intake Oral 0 ml IV Total 1000 ml Output Urine Total 2250 ml PHYSICAL EXAM Alert, nonsense speech. PERRL. EOMI. CN: no focal findings. Muscle tone: increased on left Muscle strength: Left hemiparesis DTR: 2+ Plantar reflex: extensor on the left Gait: not examined in bed. Sensory exam: no abnormal findings. No cerebellar signs elicited. Review of Relevant I have reviewed the following items faraz (where applicable) has been applied. Labs Laboratory Tests Test 02/24/20 11:50 02/24/20 18:01 02/25/20 06:30 02/25/20 06:45 Glucose (Fingerstick) 238 mg/dL (70-99) 201 mg/dL (70-99) 224 mg/dL (70-99) White Blood Count 22.1 x10^3/uL (4.0-11.0) Red Blood Count 5.01 x10^6/uL (4.30-5.70) Hemoglobin 15.0 g/dL (13.0-17.5) Hematocrit 45.6 % (39.0-53.0) Mean Corpuscular Volume 91 fL (79-100) Mean Corpuscular Hemoglobin 30 pg (25-35) Mean Corpuscular Hemoglobin Concent 33 g/dL (31-37) Red Cell Distribution Width 14.4 % (11.5-14.5) Platelet Count 162 x10^3/uL (140-400) Neutrophils (%) (Auto) 88 % (31-73) Lymphocytes (%) (Auto) 5 % (24-48) Monocytes (%) (Auto) 7 % (0-9) Eosinophils (%) (Auto) 0 % (0-3) Basophils (%) (Auto) 0 % (0-3) Neutrophils # (Auto) 19.5 x10^3/uL (1.8-7.7) Lymphocytes # (Auto) 1.0 x10^3/uL (1.0-4.8) Monocytes # (Auto) 1.5 x10^3/uL (0.0-1.1) Eosinophils # (Auto) 0.0 x10^3/uL (0.0-0.7) Basophils # (Auto) 0.0 x10^3/uL (0.0-0.2) Sodium Level 160 mmol/L (136-145) Potassium Level 3.8 mmol/L (3.5-5.1) Chloride Level 123 mmol/L (98-107) Carbon Dioxide Level 26 mmol/L (21-32) Anion Gap 11 (6-14) Blood Urea Nitrogen 42 mg/dL (8-26) Creatinine 0.9 mg/dL (0.7-1.3) Estimated GFR (Cockcroft-Gault) 85.0 Glucose Level 240 mg/dL (70-99) Calcium Level 8.9 mg/dL (8.5-10.1) Laboratory Tests Test 02/24/20 11:50 02/24/20 18:01 02/25/20 06:30 02/25/20 06:45 Glucose (Fingerstick) 238 mg/dL (70-99) 201 mg/dL (70-99) 224 mg/dL (70-99) White Blood Count 22.1 x10^3/uL (4.0-11.0) Red Blood Count 5.01 x10^6/uL (4.30-5.70) Hemoglobin 15.0 g/dL (13.0-17.5) Hematocrit 45.6 % (39.0-53.0) Mean Corpuscular Volume 91 fL (79-100) Mean Corpuscular Hemoglobin 30 pg (25-35) Mean Corpuscular Hemoglobin Concent 33 g/dL (31-37) Red Cell Distribution Width 14.4 % (11.5-14.5) Platelet Count 162 x10^3/uL (140-400) Neutrophils (%) (Auto) 88 % (31-73) Lymphocytes (%) (Auto) 5 % (24-48) Monocytes (%) (Auto) 7 % (0-9) Eosinophils (%) (Auto) 0 % (0-3) Basophils (%) (Auto) 0 % (0-3) Neutrophils # (Auto) 19.5 x10^3/uL (1.8-7.7) Lymphocytes # (Auto) 1.0 x10^3/uL (1.0-4.8) Monocytes # (Auto) 1.5 x10^3/uL (0.0-1.1) Eosinophils # (Auto) 0.0 x10^3/uL (0.0-0.7) Basophils # (Auto) 0.0 x10^3/uL (0.0-0.2) Sodium Level 160 mmol/L (136-145) Potassium Level 3.8 mmol/L (3.5-5.1) Chloride Level 123 mmol/L (98-107) Carbon Dioxide Level 26 mmol/L (21-32) Anion Gap 11 (6-14) Blood Urea Nitrogen 42 mg/dL (8-26) Creatinine 0.9 mg/dL (0.7-1.3) Estimated GFR (Cockcroft-Gault) 85.0 Glucose Level 240 mg/dL (70-99) Calcium Level 8.9 mg/dL (8.5-10.1) Medications Current Medications Nicardipine HCl 50 mg/Sodium Chloride 250 ml @ 12.5 mls/hr CONT PRN IV SEE I/O RECORD Last administered on 02/23/20at 09:50; Start 02/14/20 at 03:30 Ondansetron HCl (Zofran) 8 mg 1X ONCE IVP Last administered on 02/14/20at 03:48; Start 02/14/20 at 04:00; Stop 02/14/20 at 04:01; Status DC Metoclopramide HCl (Reglan Vial) 10 mg STK-MED ONCE .ROUTE ; Start 02/14/20 at 04:00; Stop 02/14/20 at 04:00; Status DC Diphenhydramine HCl (Benadryl) 50 mg STK-MED ONCE .ROUTE ; Start 02/14/20 at 04:02; Stop 02/14/20 at 04:02; Status DC Hydromorphone HCl (Dilaudid) 2 mg STK-MED ONCE .ROUTE ; Start 02/14/20 at 04:02; Stop 02/14/20 at 04:03; Status DC Lidocaine HCl (Lidocaine 1% 20ml Vial) 20 ml STK-MED ONCE .ROUTE ; Start 02/14/20 at 04:11; Stop 02/14/20 at 04:12; Status DC Ondansetron HCl (Zofran) 4 mg PRN Q8HRS PRN IV NAUSEA/VOMITING 1ST CHOICE; Start 02/14/20 at 04:45; Stop 02/15/20 at 04:44; Status DC Morphine Sulfate (Morphine Sulfate) 4 mg PRN Q2HR PRN IV SEVERE PAIN 7-10; Start 02/14/20 at 04:45; Stop 02/15/20 at 04:44; Status DC Rocuronium [place] (Zemuron) 100 mg 1X ONCE IV Last administered on 02/14/20at 04:56; Start 02/14/20 at 05:00; Stop 02/14/20 at 05:01; Status DC Etomidate (Amidate) 20 mg 1X ONCE IV Last administered on 02/14/20at 04:56; Start 02/14/20 at 05:00; Stop 02/14/20 at 05:01; Status DC Fentanyl Citrate (Fentanyl 2ml Vial) 100 mcg 1X ONCE IVP Last administered on 02/14/20at 04:55; Start 02/14/20 at 05:00; Stop 02/14/20 at 05:01; Status DC Propofol (Diprivan) 200 mg STK-MED ONCE IV ; Start 02/14/20 at 05:02; Stop 02/14/20 at 05:03; Status DC Propofol 50 ml @ As Directed STK-MED ONCE IV ; Start 02/14/20 at 05:03; Stop 02/14/20 at 05:03; Status DC Propofol (Diprivan) 200 mg 1X ONCE IV ; Start 02/14/20 at 05:30; Stop 02/14/20 at 05:31; Status DC Vancomycin HCl 250 ml @ 250 mls/hr PREOP PRN PRN IV PREOP Last administered on 02/14/20at 06:48; Start 02/14/20 at 06:00; Stop 02/15/20 at 05:59; Status DC Propofol 100 ml @ 0 mls/hr CONT PRN IV SEE I/O RECORD Last administered on 02/14/20at 11:30; Start 02/14/20 at 06:30 Fentanyl Citrate (Fentanyl 2ml Vial) 50 mcg 1X ONCE IVP Last administered on 02/14/20at 06:48; Start 02/14/20 at 07:00; Stop 02/14/20 at 07:01; Status DC Lidocaine HCl (Xylocaine-Mpf 1% 2ml Vial) 2 ml STK-MED ONCE .ROUTE ; Start 02/14/20 at 06:43; Stop 02/14/20 at 06:43; Status DC Fentanyl Citrate (Fentanyl 2ml Vial) 50 mcg 1X ONCE IVP Last administered on 02/14/20at 07:23; Start 02/14/20 at 07:30; Stop 02/14/20 at 07:31; Status DC Fentanyl Citrate 30 ml @ 2.5 mls/hr CONT PRN IV SEE PROTOCOL Last administered on 02/15/20at 09:14; Start 02/14/20 at 07:30 Fentanyl Citrate (Fentanyl 2ml Vial) 25 mcg PRN Q1HR PRN IV SEE COMMENTS; Start 02/14/20 at 07:30; Stop 02/15/20 at 18:51; Status DC Fentanyl Citrate (Fentanyl 2ml Vial) 50 mcg PRN Q1HR PRN IV SEE COMMENTS; Star t 02/14/20 at 07:30; Stop 02/15/20 at 18:51; Status DC Famotidine (Pepcid Vial) 20 mg BID IVP ; Start 02/14/20 at 21:00; Stop 02/14/20 at 16:18; Status DC Potassium Chloride/Dextrose/ Sod Cl 1,000 ml @ 50 mls/hr Q20H IV Last administered on 02/24/20at 00:16; Start 02/14/20 at 11:30; Stop 02/24/20 at 12:27; Status DC Pantoprazole Sodium (PROTONIX VIAL for IV PUSH) 40 mg DAILYAC IVP Last administered on 02/25/20at 07:58; Start 02/15/20 at 07:30 Vancomycin HCl 1 gm/Sodium Chloride 250 ml @ 250 mls/hr Q12H IV Last administered on 02/17/20at 04:35; Start 02/15/20 at 17:00; Stop 02/17/20 at 07:34; Status DC Vancomycin HCl (Vanco Per Pharmacy) 1 each PRN DAILY PRN MC SEE COMMENTS; Start 02/15/20 at 16:15; Stop 02/17/20 at 07:35; Status DC Fentanyl Citrate (Fentanyl 2ml Vial) 25 mcg Q1HR ONCE IV Last administered on 02/15/20at 18:54; Start 02/15/20 at 19:00; Stop 02/15/20 at 19:01; Status DC Fentanyl Citrate (Fentanyl 2ml Vial) 25 mcg PRN Q1HR PRN IVP SEVERE PAIN 7-10 Last administered on 02/24/20at 04:26; Start 02/15/20 at 22:30 Cefazolin Sodium/ Dextrose (Ancef 2gm Premix) 2 gm STK-MED ONCE IV ; Start 02/14/20 at 07:00; Stop 02/16/20 at 06:46; Status DC Dexamethasone Sodium Phosphate (Decadron) 4 mg Q6HRS IVP Last administered on 02/22/20at 12:04; Start 02/16/20 at 12:00; Stop 02/22/20 at 15:31; Status DC Dexamethasone Sodium Phosphate (Decadron) 4 mg 1X ONCE IVP Last administered on 02/16/20at 07:57; Start 02/16/20 at 08:00; Stop 02/16/20 at 08:01; Status DC Dexmedetomidine HCl 400 mcg/ Sodium Chloride 100 ml @ 0 mls/hr CONT PRN IV PER PROTOCOL Last administered on 02/21/20at 23:32; Start 02/16/20 at 08:30 Sodium Chloride 500 ml @ 500 mls/hr 1X PRN PRN IV SEE COMMENTS; Start 02/16/20 at 08:30 Atropine Sulfate (ATROPINE 0.5mg SYRINGE) 0.5 mg PRN Q5MIN PRN IV SEE COMMENTS; Start 02/16/20 at 08:30 Levofloxacin/ Dextrose 100 ml @ 100 mls/hr Q24H IV Last administered on 02/22/20at 12:03; Start 02/16/20 at 12:00; Stop 02/22/20 at 13:37; Status DC Albuterol/ Ipratropium (Duoneb) 3 ml RTQID NEB Last administered on 02/25/20at 07:24; Start 02/16/20 at 12:00 Lorazepam (Ativan Inj) 1 mg PRN Q2HRS PRN IVP ANXIETY / AGITATION Last administered on 02/24/20at 08:56; Start 02/18/20 at 09:00 Metoprolol Tartrate (Lopressor Vial) 5 mg Q6HRS IVP Last administered on 02/25/20at 05:17; Start 02/22/20 at 10:30 Hydralazine HCl (Apresoline Inj) 10 mg Q4HRS IVP Last administered on 02/25/20at 07:58; Start 02/23/20 at 10:15 Amino Acids/ Glycerin/ Electrolytes 1,000 ml @ 80 mls/hr [id number] IV Last administered on 02/24/20at 20:49; Start 02/24/20 at 08:00 Active Scripts Active Reported Flomax (Tamsulosin Hcl) 0.4 Mg Cap.er.24h 1 Cap PO DAILY Vitals/I & O Vital Sign - Last 24 Hours 02/24/20 02/24/20 02/24/20 02/24/20 08:48 09:11 09:34 11:03 Temp 98.0 98.0 Pulse 99 105 91 Resp 19 28 24 B/P (MAP) 128/82 (97) 156/89 (111) 138/74 (95) Pulse Ox 95 96 94 94 O2 Delivery Room Air Room Air Room Air Room Air 02/24/20 02/24/20 02/24/20 02/24/20 12:00 12:01 12:33 12:51 Pulse 91 B/P (MAP) 147/93 Pulse Ox 99 O2 Delivery Room Air Room Air Room Air O2 Flow Rate 3.0 02/24/20 02/24/20 02/24/20 02/24/20 12:58 14:07 14:26 15:42 Temp 98.0 98.0 Pulse 94 Resp 24 B/P (MAP) 159/91 (113) Pulse Ox 93 94 O2 Delivery Room Air Room Air Room Air Room Air 02/24/20 02/24/20 02/24/20 02/24/20 16:01 17:04 18:02 18:03 Pulse 105 105 B/P (MAP) 147/103 147/103 O2 Delivery Room Air Room Air 02/24/20 02/24/20 02/24/20 02/24/20 19:20 19:38 20:00 20:49 Temp 98.0 98.0 Pulse 101 101 Resp 18 B/P (MAP) 147/81 (103) 147/81 Pulse Ox 94 O2 Delivery Room Air Room Air Room Air 02/24/20 02/24/20 02/24/20 02/25/20 22:35 23:52 23:53 02:50 Temp 99.0 99.9 99.0 99.9 Pulse 116 116 116 111 Resp 22 20 B/P (MAP) 143/83 (103) 143/83 143/83 142/91 (108) Pulse Ox 95 96 O2 Delivery Room Air Room Air 02/25/20 02/25/20 02/25/20 02/25/20 04:25 05:17 07:00 07:24 Temp 98.0 98.0 Pulse 111 111 105 Resp 21 B/P (MAP) 142/91 142/91 144/83 (103) Pulse Ox 95 93 O2 Delivery Room Air Room Air 02/25/20 07:58 Pulse 105 B/P (MAP) 144/83 Intake and Output 02/24/20 02/24/20 02/25/20 15:00 23:00 07:00 Intake Total 1000 ml 0 ml Output Total 900 ml 1350 ml Balance 100 ml -1350 ml Justicifation of Admission Dx: Justifications for Admission: Justification of Admission Dx: Yes Acute Hemorrhagic Stroke: Acute Hemorrhagic Stroke TEE FRANCIS MD Feb 25, 2020 08:32
[2020-02-25] MEDS ORDERED: DEXTROSE 50% 25 GM / 50ML DISP.SYRIN. IV PRN (08:45)
--- NOTE | 2020-02-25 08:55 | PDOC ---
PROGRESS NOTES Date of Service: DATE: 02/25/20 TIME: 08:53 Chief Complaint Chief Complaint Intraparenchymal hemorrhage of brain (thalamic hemorrhage with intraventricular rupture) Acute intraparenchymal hematoma centered within the right thalamus with a volume of approximately 14 cc. Intraventricular extension of hemorrhage filling much of the right lateral ventricle and extending downwards through the fourth ventricle.hematoma and associated edema exert mass effect on the foramen of Prieto and a portion of the third ventricle. dilatation of the right lateral ventricle temporal horn developing hydrocephalus. 02/13 ctRight frontal approach ventriculostomy . Stable ventricular configuratio n. Stable right basal ganglia acute intraparenchymal hemorrhage with intraventricular extension. Mass effect with sulcal effacement and increased suprasellar cistern effacement. Acute hypoxic resp failure Prior old stroke Hyperlipidemia Tobacco abuse Dense left hemiparesis Hypernatremia Plan: will restart 1/2 NS contnue procalamine will try to have ST reeval now that patient seems more awake Continue with supportive measures Patient will certainly require placement patient stable for transfer to the floor failed swallow, he may benefit from a reassessment patient would most likely not do well with dobhoff tube sice he would most likely dislodged it due to the involuntary movements he has, will follow on ST abner History of Present Illness History of Present Illness 02/25/2020 No acute events reported overnight, case discussed with nursing staff patient in no acute distress no complaints during my visit more awake today, will request reeval by ST 02/24/2020 Patient with no acute events reported overnight, patient failed swallow study will start procalamine reeval in the next few days Off Cardene drip transfer to floor when bed available 02/23/2020 Patient now extubated. Patient continues to do fairly well Still left-sided hemiparesis Laboratory data reviewed We will try to wean off Cardene drip Follow network systems consultant recommendations 02/22/2020 Patient seen and examined in the ICU He remains about the same Can barely say 1 word Very sedated and obtunded Has mitts on for patient safety He is on a Cardene drip Has Precedex Also has IV Levaquin Chart reviewed Discussed with RN 02/21/2020 Patient seen and examined in the ICU He is about the same as yesterday makes eye contact tries to speak but I cannot understand him too much Discussed with RN Chart reviewed 02/20/2020 Patient seen and examined in the ICU He is a little more alert he made eye contact with me I asked him if he could hear me he clearly stated yes Discussed with RN Discussed with home health care case manager Chart reviewed next Discussed with respiratory therapy 02/19/2020 Patient seen and examined in the ICU Yesterday pulled out his SERVICES HOST pressure monitor and we still have it out for now The CAT scan repeat of the head yesterday showed decrease size of the bleed I discussed the case with home health care case manager I reviewed the chart Discussed with RN He remains critically ill 02/18/2020 Patient seen and examined in the ICU He has mitts on but somehow was able to squeeze onto his SERVICES H[employer] monitor tube and pulled out I discussed case with the home health care case manager and RN Chart reviewed 02/17/2020 Patient seen and examined in the ICU He is on BiPAP His daughter is present Discussed with RN Discussed with case management Chart reviewed Vitals Vitals Vital Signs Date Time Temp Pulse Resp B/P (MAP) Pulse Ox O2 Delivery O2 Flow Rate FiO2 02/25/20 07:58 105 144/83 02/25/20 07:24 93 Room Air 02/25/20 07:00 98.0 21 98.0 02/24/20 12:00 3.0 Physical Exam Physical Exam General: Other (Makes eye contact tries to talk but I cannot understand) Heart: Regular rate Lungs: Clear Abdomen: Normal bowel sounds Extremities: No cyanosis General: Other (Makes eye contact tries to talk but I cannot understand) Heart: Regular rate Lungs: Crackles Abdomen: Normal bowel sounds Extremities: No cyanosis Labs LABS Laboratory Tests Test 02/24/20 11:50 02/24/20 18:01 02/25/20 06:30 02/25/20 06:45 Glucose (Fingerstick) 238 mg/dL (70-99) 201 mg/dL (70-99) 224 mg/dL (70-99) White Blood Count 22.1 x10^3/uL (4.0-11.0) Red Blood Count 5.01 x10^6/uL (4.30-5.70) Hemoglobin 15.0 g/dL (13.0-17.5) Hematocrit 45.6 % (39.0-53.0) Mean Corpuscular Volume 91 fL (79-100) Mean Corpuscular Hemoglobin 30 pg (25-35) Mean Corpuscular Hemoglobin Concent 33 g/dL (31-37) Red Cell Distribution Width 14.4 % (11.5-14.5) Platelet Count 162 x10^3/uL (140-400) Neutrophils (%) (Auto) 88 % (31-73) Lymphocytes (%) (Auto) 5 % (24-48) Monocytes (%) (Auto) 7 % (0-9) Eosinophils (%) (Auto) 0 % (0-3) Basophils (%) (Auto) 0 % (0-3) Neutrophils # (Auto) 19.5 x10^3/uL (1.8-7.7) Lymphocytes # (Auto) 1.0 x10^3/uL (1.0-4.8) Monocytes # (Auto) 1.5 x10^3/uL (0.0-1.1) Eosinophils # (Auto) 0.0 x10^3/uL (0.0-0.7) Basophils # (Auto) 0.0 x10^3/uL (0.0-0.2) Sodium Level 160 mmol/L (136-145) Potassium Level 3.8 mmol/L (3.5-5.1) Chloride Level 123 mmol/L (98-107) Carbon Dioxide Level 26 mmol/L (21-32) Anion Gap 11 (6-14) Blood Urea Nitrogen 42 mg/dL (8-26) Creatinine 0.9 mg/dL (0.7-1.3) Estimated GFR (Cockcroft-Gault) 85.0 Glucose Level 240 mg/dL (70-99) Calcium Level 8.9 mg/dL (8.5-10.1) Assessment and Plan Assessmemt and Plan Problems Medical Problems: (1) Intraparenchymal hemorrhage of brain Status: Acute Comment Review of Relevant I have reviewed the following items faraz (where applicable) has been applied. Labs Laboratory Tests Test 02/24/20 11:50 02/24/20 18:01 02/25/20 06:30 02/25/20 06:45 Glucose (Fingerstick) 238 mg/dL (70-99) 201 mg/dL (70-99) 224 mg/dL (70-99) White Blood Count 22.1 x10^3/uL (4.0-11.0) Red Blood Count 5.01 x10^6/uL (4.30-5.70) Hemoglobin 15.0 g/dL (13.0-17.5) Hematocrit 45.6 % (39.0-53.0) Mean Corpuscular Volume 91 fL (79-100) Mean Corpuscular Hemoglobin 30 pg (25-35) Mean Corpuscular Hemoglobin Concent 33 g/dL (31-37) Red Cell Distribution Width 14.4 % (11.5-14.5) Platelet Count 162 x10^3/uL (140-400) Neutrophils (%) (Auto) 88 % (31-73) Lymphocytes (%) (Auto) 5 % (24-48) Monocytes (%) (Auto) 7 % (0-9) Eosinophils (%) (Auto) 0 % (0-3) Basophils (%) (Auto) 0 % (0-3) Neutrophils # (Auto) 19.5 x10^3/uL (1.8-7.7) Lymphocytes # (Auto) 1.0 x10^3/uL (1.0-4.8) Monocytes # (Auto) 1.5 x10^3/uL (0.0-1.1) Eosinophils # (Auto) 0.0 x10^3/uL (0.0-0.7) Basophils # (Auto) 0.0 x10^3/uL (0.0-0.2) Sodium Level 160 mmol/L (136-145) Potassium Level 3.8 mmol/L (3.5-5.1) Chloride Level 123 mmol/L (98-107) Carbon Dioxide Level 26 mmol/L (21-32) Anion Gap 11 (6-14) Blood Urea Nitrogen 42 mg/dL (8-26) Creatinine 0.9 mg/dL (0.7-1.3) Estimated GFR (Cockcroft-Gault) 85.0 Glucose Level 240 mg/dL (70-99) Calcium Level 8.9 mg/dL (8.5-10.1) Laboratory Tests Test 02/24/20 11:50 02/24/20 18:01 02/25/20 06:30 02/25/20 06:45 Glucose (Fingerstick) 238 mg/dL (70-99) 201 mg/dL (70-99) 224 mg/dL (70-99) White Blood Count 22.1 x10^3/uL (4.0-11.0) Red Blood Count 5.01 x10^6/uL (4.30-5.70) Hemoglobin 15.0 g/dL (13.0-17.5) Hematocrit 45.6 % (39.0-53.0) Mean Corpuscular Volume 91 fL (79-100) Mean Corpuscular Hemoglobin 30 pg (25-35) Mean Corpuscular Hemoglobin Concent 33 g/dL (31-37) Red Cell Distribution Width 14.4 % (11.5-14.5) Platelet Count 162 x10^3/uL (140-400) Neutrophils (%) (Auto) 88 % (31-73) Lymphocytes (%) (Auto) 5 % (24-48) Monocytes (%) (Auto) 7 % (0-9) Eosinophils (%) (Auto) 0 % (0-3) Basophils (%) (Auto) 0 % (0-3) Neutrophils # (Auto) 19.5 x10^3/uL (1.8-7.7) Lymphocytes # (Auto) 1.0 x10^3/uL (1.0-4.8) Monocytes # (Auto) 1.5 x10^3/uL (0.0-1.1) Eosinophils # (Auto) 0.0 x10^3/uL (0.0-0.7) Basophils # (Auto) 0.0 x10^3/uL (0.0-0.2) Sodium Level 160 mmol/L (136-145) Potassium Level 3.8 mmol/L (3.5-5.1) Chloride Level 123 mmol/L (98-107) Carbon Dioxide Level 26 mmol/L (21-32) Anion Gap 11 (6-14) Blood Urea Nitrogen 42 mg/dL (8-26) Creatinine 0.9 mg/dL (0.7-1.3) Estimated GFR (Cockcroft-Gault) 85.0 Glucose Level 240 mg/dL (70-99) Calcium Level 8.9 mg/dL (8.5-10.1) Medications Current Medications Nicardipine HCl 50 mg/Sodium Chloride 250 ml @ 12.5 mls/hr CONT PRN IV SEE I/O RECORD Last administered on 02/23/20at 09:50; Start 02/14/20 at 03:30 Ondansetron HCl (Zofran) 8 mg 1X ONCE IVP Last administered on 02/14/20at 03:48; Start 02/14/20 at 04:00; Stop 02/14/20 at 04:01; Status DC Metoclopramide HCl (Reglan Vial) 10 mg STK-MED ONCE .ROUTE ; Start 02/14/20 at 04:00; Stop 02/14/20 at 04:00; Status DC Diphenhydramine HCl (Benadryl) 50 mg STK-MED ONCE .ROUTE ; Start 02/14/20 at 04:02; Stop 02/14/20 at 04:02; Status DC Hydromorphone HCl (Dilaudid) 2 mg STK-MED ONCE .ROUTE ; Start 02/14/20 at 04:02; Stop 02/14/20 at 04:03; Status DC Lidocaine HCl (Lidocaine 1% 20ml Vial) 20 ml STK-MED ONCE .ROUTE ; Start 02/14/20 at 04:11; Stop 02/14/20 at 04:12; Status DC Ondansetron HCl (Zofran) 4 mg PRN Q8HRS PRN IV NAUSEA/VOMITING 1ST CHOICE; Start 02/14/20 at 04:45; Stop 02/15/20 at 04:44; Status DC Morphine Sulfate (Morphine Sulfate) 4 mg PRN Q2HR PRN IV SEVERE PAIN 7-10; Start 02/14/20 at 04:45; Stop 02/15/20 at 04:44; Status DC Rocuronium [place] (Zemuron) 100 mg 1X ONCE IV Last administered on 02/14/20at 04:56; Start 02/14/20 at 05:00; Stop 02/14/20 at 05:01; Status DC Etomidate (Amidate) 20 mg 1X ONCE IV Last administered on 02/14/20at 04:56; Start 02/14/20 at 05:00; Stop 02/14/20 at 05:01; Status DC Fentanyl Citrate (Fentanyl 2ml Vial) 100 mcg 1X ONCE IVP Last administered on 02/14/20at 04:55; Start 02/14/20 at 05:00; Stop 02/14/20 at 05:01; Status DC Propofol (Diprivan) 200 mg STK-MED ONCE IV ; Start 02/14/20 at 05:02; Stop 02/14/20 at 05:03; Status DC Propofol 50 ml @ As Directed STK-MED ONCE IV ; Start 02/14/20 at 05:03; Stop at 05:03; Status DC Propofol (Diprivan) 200 mg 1X ONCE IV ; Start 02/14/20 at 05:30; Stop 02/14/20 at 05:31; Status DC Vancomycin HCl 250 ml @ 250 mls/hr PREOP PRN PRN IV PREOP Last administered on 02/14/20at 06:48; Start 02/14/20 at 06:00; Stop 02/15/20 at 05:59; Status DC Propofol 100 ml @ 0 mls/hr CONT PRN IV SEE I/O RECORD Last administered on 02/14/20at 11:30; Start 02/14/20 at 06:30 Fentanyl Citrate (Fentanyl 2ml Vial) 50 mcg 1X ONCE IVP Last administered on 02/14/20at 06:48; Start 02/14/20 at 07:00; Stop 02/14/20 at 07:01; Status DC Lidocaine HCl (Xylocaine-Mpf 1% 2ml Vial) 2 ml STK-MED ONCE .ROUTE ; Start 02/14/20 at 06:43; Stop 02/14/20 at 06:43; Status DC Fentanyl Citrate (Fentanyl 2ml Vial) 50 mcg 1X ONCE IVP Last administered on at 07:23; Start 02/14/20 at 07:30; Stop 02/14/20 at 07:31; Status DC Fentanyl Citrate 30 ml @ 2.5 mls/hr CONT PRN IV SEE PROTOCOL Last administered on 02/15/20at 09:14; Start 02/14/20 at 07:30 Fentanyl Citrate (Fentanyl 2ml Vial) 25 mcg PRN Q1HR PRN IV SEE COMMENTS; Start 02/14/20 at 07:30; Stop 02/15/20 at 18:51; Status DC Fentanyl Citrate (Fentanyl 2ml Vial) 50 mcg PRN Q1HR PRN IV SEE COMMENTS; Start 02/14/20 at 07:30; Stop 02/15/20 at 18:51; Status DC Famotidine (Pepcid Vial) 20 mg BID IVP ; Start 02/14/20 at 21:00; Stop 02/14/20 at 16:18; Status DC Potassium Chloride/Dextrose/ Sod Cl 1,000 ml @ 50 mls/hr Q20H IV Last administered on 02/24/20at 00:16; Start 02/14/20 at 11:30; Stop 02/24/20 at 12:27; Status DC Pantoprazole Sodium (PROTONIX VIAL for IV PUSH) 40 mg DAILYAC IVP Last administered on 02/25/20at 07:58; Start 02/15/20 at 07:30 Vancomycin HCl 1 gm/Sodium Chloride 250 ml @ 250 mls/hr Q12H IV Last administered on 02/17/20at 04:35; Start 02/15/20 at 17:00; Stop 02/17/20 at 07:34; Status DC Vancomycin HCl (Vanco Per Pharmacy) 1 each PRN DAILY PRN MC SEE COMMENTS; Start 02/15/20 at 16:15; Stop 02/17/20 at 07:35; Status DC Fentanyl Citrate (Fentanyl 2ml Vial) 25 mcg Q1HR ONCE IV Last administered on 02/15/20at 18:54; Start 02/15/20 at 19:00; Stop 02/15/20 at 19:01; Status DC Fentanyl Citrate (Fentanyl 2ml Vial) 25 mcg PRN Q1HR PRN IVP SEVERE PAIN 7-10 Last administered on 02/24/20at 04:26; Start 02/15/20 at 22:30 Cefazolin Sodium/ Dextrose (Ancef 2gm Premix) 2 gm STK-MED ONCE IV ; Start 02/13 at 07:00; Stop 02/16/20 at 06:46; Status DC Dexamethasone Sodium Phosphate (Decadron) 4 mg Q6HRS IVP Last administered on 02/22/20at 12:04; Start 02/16/20 at 12:00; Stop 02/22/20 at 15:31; Status DC Dexamethasone Sodium Phosphate (Decadron) 4 mg 1X ONCE IVP Last administered on 02/16/20at 07:57; Start 02/16/20 at 08:00; Stop 02/16/20 at 08:01; Status DC Dexmedetomidine HCl 400 mcg/ Sodium Chloride 100 ml @ 0 mls/hr CONT PRN IV PER PROTOCOL Last administered on 02/21/20at 23:32; Start 02/16/20 at 08:30 Sodium Chloride 500 ml @ 500 mls/hr 1X PRN PRN IV SEE COMMENTS; Start 02/16/20 at 08:30 Atropine Sulfate (ATROPINE 0.5mg SYRINGE) 0.5 mg PRN Q5MIN PRN IV SEE COMMENTS; Start 02/16/20 at 08:30 Levofloxacin/ Dextrose 100 ml @ 100 mls/hr Q24H IV Last administered on 02/22/20at 12:03; Start 02/16/20 at 12:00; Stop 02/22/20 at 13:37; Status DC Albuterol/ Ipratropium (Duoneb) 3 ml RTQID NEB Last administered on 02/25/20at 07:24; Start 02/16/20 at 12:00 Lorazepam (Ativan Inj) 1 mg PRN Q2HRS PRN IVP ANXIETY / AGITATION Last administered on 02/24/20at 08:56; Start 02/18/20 at 09:00 Metoprolol Tartrate (Lopressor Vial) 5 mg Q6HRS IVP Last administered on 02/25/20at 05:17; Start 02/22/20 at 10:30 Hydralazine HCl (Apresoline Inj) 10 mg Q4HRS IVP Last administered on 02/25/20at 07:58; Start 02/23/20 at 10:15 Amino Acids/ Glycerin/ Electrolytes 1,000 ml @ 80 mls/hr [id number] IV Last administered on 02/24/20at 20:49; Start 02/24/20 at 08:00 Potassium Chloride/Dextrose/ Sod Cl 1,000 ml @ 50 mls/hr Q20H IV ; Start 02/25/20 at 09:00 Insulin Human Lispro (HumaLOG) 0-5 UNITS Q6HRS SQ ; Start 02/25/20 at 12:00 Dextrose (Dextrose 50%-Water Syringe) 12.5 gm PRN Q15MIN PRN IV SEE COMMENTS; Start 02/25/20 at 08:45 Active Scripts Active Reported Flomax (Tamsulosin Hcl) 0.4 Mg Cap.er.24h 1 Cap PO DAILY Vitals/I & O Vital Sign - Last 24 Hours 02/24/20 02/24/20 02/24/20 02/24/20 09:11 09:34 11:03 12:00 Temp 98.0 98.0 Pulse 105 91 Resp 28 24 B/P (MAP) 156/89 (111) 138/74 (95) Pulse Ox 96 94 94 O2 Delivery Room Air Room Air Room Air Room Air O2 Flow Rate 3.0 02/24/20 02/24/20 02/24/20 02/24/20 12:01 12:33 12:51 12:58 Pulse 91 B/P (MAP) 147/93 Pulse Ox 99 O2 Delivery Room Air Room Air Room Air 02/24/20 02/24/20 02/24/20 02/24/20 14:07 14:26 15:42 16:01 Temp 98.0 98.0 Pulse 94 Resp 24 B/P (MAP) 159/91 (113) Pulse Ox 93 94 O2 Delivery Room Air Room Air Room Air Room Air 02/24/20 02/24/20 02/24/20 02/24/20 17:04 18:02 18:03 19:20 Temp 98.0 98.0 Pulse 105 105 101 Resp 18 B/P (MAP) 147/103 147/103 147/81 (103) Pulse Ox 94 O2 Delivery Room Air Room Air 02/24/20 02/24/20 02/24/20 02/24/20 19:38 20:00 20:49 22:35 Temp 99.0 99.0 Pulse 101 116 Resp 22 B/P (MAP) 147/81 143/83 (103) Pulse Ox 95 O2 Delivery Room Air Room Air Room Air 02/24/20 02/24/20 02/25/20 02/25/20 23:52 23:53 02:50 04:25 Temp 99.9 99.9 Pulse 116 116 111 111 Resp 20 B/P (MAP) 143/83 143/83 142/91 (108) 142/91 Pulse Ox 96 O2 Delivery Room Air 02/25/20 02/25/20 02/25/20 02/25/20 05:17 07:00 07:24 07:58 Temp 98.0 98.0 Pulse 111 105 105 Resp 21 B/P (MAP) 142/91 144/83 (103) 144/83 Pulse Ox 95 93 O2 Delivery Room Air Room Air Intake and Output 02/24/20 02/24/20 02/25/20 15:00 23:00 07:00 Intake Total 1000 ml 0 ml Output Total 900 ml 1350 ml Balance 100 ml -1350 ml Justicifation of Admission Dx: Justifications for Admission: Justification of Admission Dx: Yes Acute Hemorrhagic Stroke: Acute Hemorrhagic Stroke JADE CLAROS MD Feb 25, 2020 08:55
[2020-02-25] MEDS ORDERED: POTASSIUM CL 20MEQ D5-0.45NACL 1,000 ML IV SCH (09:00)
[2020-02-25] MEDS: AMINO AC 3%/ELECTROLYTE/GLYCER 1,000 ML IV SCH ×2 (09:20→20:47)
--- NOTE | 2020-02-25 09:30 | PDOC ---
PROGRESS NOTES Date of Service DATE: 02/25/20 TIME: 09:26 Subjective Subjective No new complaints. Objective Objective Vital Signs Date Time Temp Pulse Resp B/P (MAP) Pulse Ox O2 Delivery O2 Flow Rate FiO2 02/25/20 07:58 105 144/83 02/25/20 07:24 93 Room Air 02/25/20 07:00 98.0 21 98.0 02/24/20 12:00 3.0 Intake and Output 02/25/20 07:00 Intake Total 1000 ml Output Total 2250 ml Balance -1250 ml Intake Oral 0 ml IV Total 1000 ml Output Urine Total 2250 ml Physical Exam Physical Exam He continues with left hemiplegia and I have not seen any left shoulder and left hip extension and adduction,which I have noticed on my examination of 02/23/20. Assessment Assessment Problems Medical Problems: (1) Intraparenchymal hemorrhage of brain Status: Acute Plan Plan of Care To continue present physical,occupational therapy and speech pathology follow up and he may need PEG tube placement as he did not have any swallowing reflex as noted by speech pathology. Comment Review of Relevant I have reviewed the following items faraz (where applicable) has been applied. Labs Laboratory Tests Test 02/24/20 11:50 02/24/20 18:01 02/25/20 06:30 02/25/20 06:45 Glucose (Fingerstick) 238 mg/dL (70-99) 201 mg/dL (70-99) 224 mg/dL (70-99) White Blood Count 22.1 x10^3/uL (4.0-11.0) Red Blood Count 5.01 x10^6/uL (4.30-5.70) Hemoglobin 15.0 g/dL (13.0-17.5) Hematocrit 45.6 % (39.0-53.0) Mean Corpuscular Volume 91 fL (79-100) Mean Corpuscular Hemoglobin 30 pg (25-35) Mean Corpuscular Hemoglobin Concent 33 g/dL (31-37) Red Cell Distribution Width 14.4 % (11.5-14.5) Platelet Count 162 x10^3/uL (140-400) Neutrophils (%) (Auto) 88 % (31-73) Lymphocytes (%) (Auto) 5 % (24-48) Monocytes (%) (Auto) 7 % (0-9) Eosinophils (%) (Auto) 0 % (0-3) Basophils (%) (Auto) 0 % (0-3) Neutrophils # (Auto) 19.5 x10^3/uL (1.8-7.7) Lymphocytes # (Auto) 1.0 x10^3/uL (1.0-4.8) Monocytes # (Auto) 1.5 x10^3/uL (0.0-1.1) Eosinophils # (Auto) 0.0 x10^3/uL (0.0-0.7) Basophils # (Auto) 0.0 x10^3/uL (0.0-0.2) Sodium Level 160 mmol/L (136-145) Potassium Level 3.8 mmol/L (3.5-5.1) Chloride Level 123 mmol/L (98-107) Carbon Dioxide Level 26 mmol/L (21-32) Anion Gap 11 (6-14) Blood Urea Nitrogen 42 mg/dL (8-26) Creatinine 0.9 mg/dL (0.7-1.3) Estimated GFR (Cockcroft-Gault) 85.0 Glucose Level 240 mg/dL (70-99) Calcium Level 8.9 mg/dL (8.5-10.1) Laboratory Tests Test 02/24/20 11:50 02/24/20 18:01 02/25/20 06:30 02/25/20 06:45 Glucose (Fingerstick) 238 mg/dL (70-99) 201 mg/dL (70-99) 224 mg/dL (70-99) White Blood Count 22.1 x10^3/uL (4.0-11.0) Red Blood Count 5.01 x10^6/uL (4.30-5.70) Hemoglobin 15.0 g/dL (13.0-17.5) Hematocrit 45.6 % (39.0-53.0) Mean Corpuscular Volume 91 fL (79-100) Mean Corpuscular Hemoglobin 30 pg (25-35) Mean Corpuscular Hemoglobin Concent 33 g/dL (31-37) Red Cell Distribution Width 14.4 % (11.5-14.5) Platelet Count 162 x10^3/uL (140-400) Neutrophils (%) (Auto) 88 % (31-73) Lymphocytes (%) (Auto) 5 % (24-48) Monocytes (%) (Auto) 7 % (0-9) Eosinophils (%) (Auto) 0 % (0-3) Basophils (%) (Auto) 0 % (0-3) Neutrophils # (Auto) 19.5 x10^3/uL (1.8-7.7) Lymphocytes # (Auto) 1.0 x10^3/uL (1.0-4.8) Monocytes # (Auto) 1.5 x10^3/uL (0.0-1.1) Eosinophils # (Auto) 0.0 x10^3/uL (0.0-0.7) Basophils # (Auto) 0.0 x10^3/uL (0.0-0.2) Sodium Level 160 mmol/L (136-145) Potassium Level 3.8 mmol/L (3.5-5.1) Chloride Level 123 mmol/L (98-107) Carbon Dioxide Level 26 mmol/L (21-32) Anion Gap 11 (6-14) Blood Urea Nitrogen 42 mg/dL (8-26) Creatinine 0.9 mg/dL (0.7-1.3) Estimated GFR (Cockcroft-Gault) 85.0 Glucose Level 240 mg/dL (70-99) Calcium Level 8.9 mg/dL (8.5-10.1) Medications Current Medications Nicardipine HCl 50 mg/Sodium Chloride 250 ml @ 12.5 mls/hr CONT PRN IV SEE I/O RECORD Last administered on 02/23/20at 09:50; Start 02/14/20 at 03:30 Ondansetron HCl (Zofran) 8 mg 1X ONCE IVP Last administered on 02/14/20at 03:48; Start 02/14/20 at 04:00; Stop 02/14/20 at 04:01; Status DC Metoclopramide HCl (Reglan Vial) 10 mg STK-MED ONCE .ROUTE ; Start 02/14/20 at 04:00; Stop 02/14/20 at 04:00; Status DC Diphenhydramine HCl (Benadryl) 50 mg STK-MED ONCE .ROUTE ; Start 02/14/20 at 04:02; Stop 02/14/20 at 04:02; Status DC Hydromorphone HCl (Dilaudid) 2 mg STK-MED ONCE .ROUTE ; Start 02/14/20 at 04:02; Stop 02/14/20 at 04:03; Status DC Lidocaine HCl (Lidocaine 1% 20ml Vial) 20 ml STK-MED ONCE .ROUTE ; Start 02/14/20 at 04:11; Stop 02/14/20 at 04:12; Status DC Ondansetron HCl (Zofran) 4 mg PRN Q8HRS PRN IV NAUSEA/VOMITING 1ST CHOICE; Start 02/14/20 at 04:45; Stop 02/15/20 at 04:44; Status DC Morphine Sulfate (Morphine Sulfate) 4 mg PRN Q2HR PRN IV SEVERE PAIN 7-10; Start 02/14/20 at 04:45; Stop 02/15/20 at 04:44; Status DC Rocuronium [place] (Zemuron) 100 mg 1X ONCE IV Last administered on 02/14/20at 04:56; Start 02/14/20 at 05:00; Stop 02/14/20 at 05:01; Status DC Etomidate (Amidate) 20 mg 1X ONCE IV Last administered on 02/14/20at 04:56; Start 02/14/20 at 05:00; Stop 02/14/20 at 05:01; Status DC Fentanyl Citrate (Fentanyl 2ml Vial) 100 mcg 1X ONCE IVP Last administered on 02/14/20at 04:55; Start 02/14/20 at 05:00; Stop 02/14/20 at 05:01; Status DC Propofol (Diprivan) 200 mg STK-MED ONCE IV ; Start 02/14/20 at 05:02; Stop 02/14/20 at 05:03; Status DC Propofol 50 ml @ As Directed STK-MED ONCE IV ; Start 02/14/20 at 05:03; Stop 02/14/20 at 05:03; Status DC Propofol (Diprivan) 200 mg 1X ONCE IV ; Start 02/14/20 at 05:30; Stop 02/14/20 at 05:31; Status DC Vancomycin HCl 250 ml @ 250 mls/hr PREOP PRN PRN IV PREOP Last administered on 02/14/20at 06:48; Start 02/14/20 at 06:00; Stop 02/15/20 at 05:59; Status DC Propofol 100 ml @ 0 mls/hr CONT PRN IV SEE I/O RECORD Last administered on 02/14/20at 11:30; Start 02/14/20 at 06:30 Fentanyl Citrate (Fentanyl 2ml Vial) 50 mcg 1X ONCE IVP Last administered on 02/14/20at 06:48; Start 02/14/20 at 07:00; Stop 02/14/20 at 07:01; Status DC Lidocaine HCl (Xylocaine-Mpf 1% 2ml Vial) 2 ml STK-MED ONCE .ROUTE ; Start 02/14/20 at 06:43; Stop 02/14/20 at 06:43; Status DC Fentanyl Citrate (Fentanyl 2ml Vial) 50 mcg 1X ONCE IVP Last administered on 02/14/20at 07:23; Start 02/14/20 at 07:30; Stop 02/14/20 at 07:31; Status DC Fentanyl Citrate 30 ml @ 2.5 mls/hr CONT PRN IV SEE PROTOCOL Last administered on 02/15/20at 09:14; Start 02/14/20 at 07:30 Fentanyl Citrate (Fentanyl 2ml Vial) 25 mcg PRN Q1HR PRN IV SEE COMMENTS; Start 02/14/20 at 07:30; Stop 02/15/20 at 18:51; Status DC Fentanyl Citrate (Fentanyl 2ml Vial) 50 mcg PRN Q1HR PRN IV SEE COMMENTS; Start 02/14/20 at 07:30; Stop 02/15/20 at 18:51; Status DC Famotidine (Pepcid Vial) 20 mg BID IVP ; Start 02/14/20 at 21:00; Stop 02/14/20 at 16:18; Status DC Potassium Chloride/Dextrose/ Sod Cl 1,000 ml @ 50 mls/hr Q20H IV Last administered on 02/24/20at 00:16; Start 02/14/20 at 11:30; Stop 02/24/20 at 12:27; Status DC Pantoprazole Sodium (PROTONIX VIAL for IV PUSH) 40 mg DAILYAC IVP Last administered on 02/25/20at 07:58; Start 02/15/20 at 07:30 Vancomycin HCl 1 gm/Sodium Chloride 250 ml @ 250 mls/hr Q12H IV Last administered on 02/17/20at 04:35; Start 02/15/20 at 17:00; Stop 02/17/20 at 07:34; Status DC Vancomycin HCl (Vanco Per Pharmacy) 1 each PRN DAILY PRN MC SEE COMMENTS; Start 02/15/20 at 16:15; Stop 02/17/20 at 07:35; Status DC Fentanyl Citrate (Fentanyl 2ml Vial) 25 mcg Q1HR ONCE IV Last administered on 02/15/20at 18:54; Start 02/15/20 at 19:00; Stop 02/15/20 at 19:01; Status DC Fentanyl Citrate (Fentanyl 2ml Vial) 25 mcg PRN Q1HR PRN IVP SEVERE PAIN 7-10 Last administered on 02/24/20at 04:26; Start 02/15/20 at 22:30 Cefazolin Sodium/ Dextrose (Ancef 2gm Premix) 2 gm STK-MED ONCE IV ; Start 02/14/20 at 07:00; Stop 02/16/20 at 06:46; Status DC Dexamethasone Sodium Phosphate (Decadron) 4 mg Q6HRS IVP Last administered on 02/22/20at 12:04; Start 02/16/20 at 12:00; Stop 02/22/20 at 15:31; Status DC Dexamethasone Sodium Phosphate (Decadron) 4 mg 1X ONCE IVP Last administered on 02/16/20at 07:57; Start 02/16/20 at 08:00; Stop 02/16/20 at 08:01; Status DC Dexmedetomidine HCl 400 mcg/ Sodium Chloride 100 ml @ 0 mls/hr CONT PRN IV PER PROTOCOL Last administered on 02/21/20at 23:32; Start 02/16/20 at 08:30 Sodium Chloride 500 ml @ 500 mls/hr 1X PRN PRN IV SEE COMMENTS; Start 02/16/20 at 08:30 Atropine Sulfate (ATROPINE 0.5mg SYRINGE) 0.5 mg PRN Q5MIN PRN IV SEE COMMENTS; Start 02/16/20 at 08:30 Levofloxacin/ Dextrose 100 ml @ 100 mls/hr Q24H IV Last administered on 02/22/20at 12:03; Start 02/16/20 at 12:00; Stop 02/22/20 at 13:37; Status DC Albuterol/ Ipratropium (Duoneb) 3 ml RTQID NEB Last administered on 02/25/20at 07:24; Start 02/16/20 at 12:00 Lorazepam (Ativan Inj) 1 mg PRN Q2HRS PRN IVP ANXIETY / AGITATION Last administered on 02/24/20at 08:56; Start 02/18/20 at 09:00 Metoprolol Tartrate (Lopressor Vial) 5 mg Q6HRS IVP Last administered on 02/25/20at 05:17; Start 02/22/20 at 10:30 Hydralazine HCl (Apresoline Inj) 10 mg Q4HRS IVP Last administered on 02/25/20at 07:58; Start 02/23/20 at 10:15 Amino Acids/ Glycerin/ Electrolytes 1,000 ml @ 80 mls/hr [id number] IV Last administered on 02/25/20at 09:20; Start 02/24/20 at 08:00 Potassium Chloride/Dextrose/ Sod Cl 1,000 ml @ 50 mls/hr Q20H IV Last administered on 02/25/20at 09:12; Start 02/25/20 at 09:00 Insulin Human Lispro (HumaLOG) 0-5 UNITS Q6HRS SQ ; Start 02/25/20 at 12:00 Dextrose (Dextrose 50%-Water Syringe) 12.5 gm PRN Q15MIN PRN IV SEE COMMENTS; Start 02/25/20 at 08:45 Active Scripts Active Reported Flomax (Tamsulosin Hcl) 0.4 Mg Cap.er.24h 1 Cap PO DAILY Vitals/I & O Vital Sign - Last 24 Hours 02/24/20 02/24/20 02/24/20 02/24/20 09:34 11:03 12:00 12:01 Temp 98.0 98.0 Pulse 105 91 Resp 28 24 B/P (MAP) 156/89 (111) 138/74 (95) Pulse Ox 94 94 O2 Delivery Room Air Room Air Room Air Room Air O2 Flow Rate 3.0 02/24/20 02/24/20 02/24/20 02/24/20 12:33 12:51 12:58 14:07 Pulse 91 B/P (MAP) 147/93 Pulse Ox 99 O2 Delivery Room Air Room Air Room Air 02/24/20 02/24/20 02/24/20 02/24/20 14:26 15:42 16:01 17:04 Temp 98.0 98.0 Pulse 94 Resp 24 B/P (MAP) 159/91 (113) Pulse Ox 93 94 O2 Delivery Room Air Room Air Room Air Room Air 02/24/20 02/24/20 02/24/20 02/24/20 18:02 18:03 19:20 19:38 Temp 98.0 98.0 Pulse 105 105 101 Resp 18 B/P (MAP) 147/103 147/103 147/81 (103) Pulse Ox 94 O2 Delivery Room Air Room Air 02/24/20 02/24/20 02/24/20 02/24/20 20:00 20:49 22:35 23:52 Temp 99.0 99.0 Pulse 101 116 116 Resp 22 B/P (MAP) 147/81 143/83 (103) 143/83 Pulse Ox 95 O2 Delivery Room Air Room Air 02/24/20 02/25/20 02/25/20 02/25/20 23:53 02:50 04:25 05:17 Temp 99.9 99.9 Pulse 116 111 111 111 Resp 20 B/P (MAP) 143/83 142/91 (108) 142/91 142/91 Pulse Ox 96 O2 Delivery Room Air 02/25/20 02/25/20 02/25/20 07:00 07:24 07:58 Temp 98.0 98.0 Pulse 105 105 Resp 21 B/P (MAP) 144/83 (103) 144/83 Pulse Ox 95 93 O2 Delivery Room Air Room Air Intake and Output 02/24/20 02/24/20 02/25/20 15:00 23:00 07:00 Intake Total 1000 ml 0 ml Output Total 900 ml 1350 ml Balance 100 ml -1350 ml Justifications for Admission Other Justification CYNDEE VASQUEZ MD Feb 25, 2020 09:30
[2020-02-25 09:51] LABS: % BANDS 2 % (0-9); % LYMPHS 4 % (24-48); % MONOS 6 % (0-10); % MYELOS 1 % (0-0); % SEGS 87 % (35-66); PLT ESTIMATE ADEQUATE (ADEQUATE)
--- NOTE | 2020-02-25 10:15 | NUR ---
SS following up with discharge planning. SS reviewed pt chart and discussed with pt RN. Pt is currently on room air. COVID19 test pending. Pt NPO and on PPN. ST evaluation ordered for today. Referral was phoned and faxed to [facility] [place], ; fax [phone], on 02/24/2020, per sons request. [facility] wanting updates phoned and faxed to them when ST has evaluated and COVID19 test has resulted. SS will continue to follow for discharge planning.
[2020-02-25 10:55] VITALS: BP 147/78
[2020-02-25] MEDS: IV DEXTROSE 5% 1,000 ML IV SCH (12:27)
[2020-02-25] MEDS: INSULIN LISPRO 300 UNITS/3 ML VIAL. SQ SCH ×2 (12:38→19:35)
--- NOTE | 2020-02-25 14:08 | NUR ---
SS following up with discharge planning. Per RN, pt failed swallow study. Pt NPO. Dobhoff being placed today. Pt on Jevity 1.2. [facility] [place] reported that they cannot accept pt with Dobhoff. SS contacted pt's son and discussed. Pt's son understanding and okay with referral to [facility], ; fax [phone]. SS phoned and faxed referral to [facility]. SS will continue to follow for discharge planning.
[2020-02-25 15:00] VITALS: BP 153/85
--- NOTE | 2020-02-25 15:32 | PDOC2 ---
CONSULT Date of Consult Date of Consult DATE: 02/25/20 TIME: 15:26 Reason for Consult Reason for Consult: SASCHA AND HIGH NA Referring Physician Referring Physician: MARIA DE JESUS Identification/Chief Complaint Chief Complaint ABNORMAL LABS Source Source: Chart review History of Present Illness Reason for Visit: THIS IS A 64 YR OLD WITH HX OF CVA. PRESENTED WITH VIEIRA AND WEAKNESS. DX WITH AN ICB IN THE ER. UNDERWENT AN VENTRICULOSTOMY AND HAS BEEN IN THE ICU ON THE VENT. HAS BEEN EXUBATED AND ON THE FLOOR. REMAINS CONFUSED. HAS FAILED A SWALLOW STUDY. RENAL CONSULT DUE TO HIGH NA OF160. AND MILD SASCHA WITH AN INCREASED BUN TO CR RATIO. HAS BEEN ON 1/2 NS AND PPN Past Medical History Cardiovascular: Hyperlipidemia CENTRAL NERVOUS SYSTEM: CVA Renal/: No pertinent hx Past Surgical History Past Surgical History: Hernia Repair Family History Family History: High Cholestrol, Hypertension Social History <1 pack per day ALCOHOL: none Drugs: None Current Problem List Problem List Problems Medical Problems: (1) Intraparenchymal hemorrhage of brain Status: Acute Current Medications Current Medications Current Medications Nicardipine HCl 50 mg/Sodium Chloride 250 ml @ 12.5 mls/hr CONT PRN IV SEE I/O RECORD Last administered on 02/23/20at 09:50; Start 02/14/20 at 03:30; Stop 02/25/20 at 11:54; Status DC Ondansetron HCl (Zofran) 8 mg 1X ONCE IVP Last administered on 02/14/20at 03:48; Start 02/14/20 at 04:00; Stop 02/14/20 at 04:01; Status DC Metoclopramide HCl (Reglan Vial) 10 mg STK-MED ONCE .ROUTE ; Start 02/14/20 at 04:00; Stop 02/14/20 at 04:00; Status DC Diphenhydramine HCl (Benadryl) 50 mg STK-MED ONCE .ROUTE ; Start 02/14/20 at 04:02; Stop 02/14/20 at 04:02; Status DC Hydromorphone HCl (Dilaudid) 2 mg STK-MED ONCE .ROUTE ; Start 02/14/20 at 04:02; Stop 02/14/20 at 04:03; Status DC Lidocaine HCl (Lidocaine 1% 20ml Vial) 20 ml STK-MED ONCE .ROUTE ; Start 02/14/20 at 04:11; Stop 02/14/20 at 04:12; Status DC Ondansetron HCl (Zofran) 4 mg PRN Q8HRS PRN IV NAUSEA/VOMITING 1ST CHOICE; Start 02/14/20 at 04:45; Stop 02/15/20 at 04:44; Status DC Morphine Sulfate (Morphine Sulfate) 4 mg PRN Q2HR PRN IV SEVERE PAIN 7-10; Start 02/14/20 at 04:45; Stop 02/15/20 at 04:44; Status DC Rocuronium [place] (Zemuron) 100 mg 1X ONCE IV Last administered on 02/14/20at 04:56; Start 02/14/20 at 05:00; Stop 02/14/20 at 05:01; Status DC Etomidate (Amidate) 20 mg 1X ONCE IV Last administered on 02/14/20at 04:56; Start 02/14/20 at 05:00; Stop 02/14/20 at 05:01; Status DC Fentanyl Citrate (Fentanyl 2ml Vial) 100 mcg 1X ONCE IVP Last administered on 02/14/20at 04:55; Start 02/14/20 at 05:00; Stop 02/14/20 at 05:01; Status DC Propofol (Diprivan) 200 mg STK-MED ONCE IV ; Start 02/14/20 at 05:02; Stop 02/14/20 at 05:03; Status DC Propofol 50 ml @ As Directed STK-MED ONCE IV ; Start 02/14/20 at 05:03; Stop 02/14/20 at 05:03; Status DC Propofol (Diprivan) 200 mg 1X ONCE IV ; Start 02/14/20 at 05:30; Stop 02/14/20 at 05:31; Status DC Vancomycin HCl 250 ml @ 250 mls/hr PREOP PRN PRN IV PREOP Last administered on 02/14/20at 06:48; Start 02/14/20 at 06:00; Stop 02/15/20 at 05:59; Status DC Propofol 100 ml @ 0 mls/hr CONT PRN IV SEE I/O RECORD Last administered on 02/14/20at 11:30; Start 02/14/20 at 06:30; Stop 02/25/20 at 11:51; Status DC Fentanyl Citrate (Fentanyl 2ml Vial) 50 mcg 1X ONCE IVP Last administered on 02/14/20at 06:48; Start 02/14/20 at 07:00; Stop 02/14/20 at 07:01; Status DC Lidocaine HCl (Xylocaine-Mpf 1% 2ml Vial) 2 ml STK-MED ONCE .ROUTE ; Start 02/14/20 at 06:43; Stop 02/14/20 at 06:43; Status DC Fentanyl Citrate (Fentanyl 2ml Vial) 50 mcg 1X ONCE IVP Last administered on 02/14/20at 07:23; Start 02/14/20 at 07:30; Stop 02/14/20 at 07:31; Status DC Fentanyl Citrate 30 ml @ 2.5 mls/hr CONT PRN IV SEE PROTOCOL Last administered on 02/15/20at 09:14; Start 02/14/20 at 07:30; Stop 02/25/20 at 11:51; Status DC Fentanyl Citrate (Fentanyl 2ml Vial) 25 mcg PRN Q1HR PRN IV SEE COMMENTS; Start 02/14/20 at 07:30; Stop 02/15/20 at 18:51; Status DC Fentanyl Citrate (Fentanyl 2ml Vial) 50 mcg PRN Q1HR PRN IV SEE COMMENTS; Start 02/14/20 at 07:30; Stop 02/15/20 at 18:51; Status DC Famotidine (Pepcid Vial) 20 mg BID IVP ; Start 02/14/20 at 21:00; Stop 02/14/20 at 16:18; Status DC Potassium Chloride/Dextrose/ Sod Cl 1,000 ml @ 50 mls/hr Q20H IV Last administered on 02/24/20at 00:16; Start 02/14/20 at 11:30; Stop 02/24/20 at 12:27; Status DC Pantoprazole Sodium (PROTONIX VIAL for IV PUSH) 40 mg DAILYAC IVP Last administered on 02/25/20at 07:58; Start 02/15/20 at 07:30 Vancomycin HCl 1 gm/Sodium Chloride 250 ml @ 250 mls/hr Q12H IV Last administered on 02/17/20at 04:35; Start 02/15/20 at 17:00; Stop 02/17/20 at 07:34; Status DC Vancomycin HCl (Vanco Per Pharmacy) 1 each PRN DAILY PRN MC SEE COMMENTS; Start 02/15/20 at 16:15; Stop 02/17/20 at 07:35; Status DC Fentanyl Citrate (Fentanyl 2ml Vial) 25 mcg Q1HR ONCE IV Last administered on 02/15/20at 18:54; Start 02/15/20 at 19:00; Stop 02/15/20 at 19:01; Status DC Fentanyl Citrate (Fentanyl 2ml Vial) 25 mcg PRN Q1HR PRN IVP SEVERE PAIN 7-10 Last administered on 02/24/20at 04:26; Start 02/15/20 at 22:30 Cefazolin Sodium/ Dextrose (Ancef 2gm Premix) 2 gm STK-MED ONCE IV ; Start 02/14/20 at 07:00; Stop 02/16/20 at 06:46; Status DC Dexamethasone Sodium Phosphate (Decadron) 4 mg Q6HRS IVP Last administered on 02/22/20at 12:04; Start 02/16/20 at 12:00; Stop 02/22/20 at 15:31; Status DC Dexamethasone Sodium Phosphate (Decadron) 4 mg 1X ONCE IVP Last administered on 02/16/20at 07:57; Start 02/16/20 at 08:00; Stop 02/16/20 at 08:01; Status DC Dexmedetomidine HCl 400 mcg/ Sodium Chloride 100 ml @ 0 mls/hr CONT PRN IV PER PROTOCOL Last administered on 02/21/20at 23:32; Start 02/16/20 at 08:30; Stop 02/25/20 at 11:51; Status DC Sodium Chloride 500 ml @ 500 mls/hr 1X PRN PRN IV SEE COMMENTS; Start 02/16/20 at 08:30 Atropine Sulfate (ATROPINE 0.5mg SYRINGE) 0.5 mg PRN Q5MIN PRN IV SEE COMMENTS; Start 02/16/20 at 08:30 Levofloxacin/ Dextrose 100 ml @ 100 mls/hr Q24H IV Last administered on 02/22/20at 12:03; Start 02/16/20 at 12:00; Stop 02/22/20 at 13:37; Status DC Albuterol/ Ipratropium (Duoneb) 3 ml RTQID NEB Last administered on 02/25/20at 15:14; Start 02/16/20 at 12:00 Lorazepam (Ativan Inj) 1 mg PRN Q2HRS PRN IVP ANXIETY / AGITATION Last administered on 02/24/20 08:56; Start 02/18/20 at 09:00 Metoprolol Tartrate (Lopressor Vial) 5 mg Q6HRS IVP Last administered on 02/25/20at 12:27; Start 02/22/20 at 10:30 Hydralazine HCl (Apresoline Inj) 10 mg Q4HRS IVP Last administered on 02/25/20 12:32; Start 02/23/20 at 10:15 Amino Acids/ Glycerin/ Electrolytes 1,000 ml @ 80 mls/hr [id number] IV Last administered on 02/25/20 09:20; Start 02/24/20 at 08:00 Potassium Chloride/Dextrose/ Sod Cl 1,000 ml @ 50 mls/hr Q20H IV Last administered on 02/25/20at 09:12; Start 02/25/20 at 09:00; Stop 02/25/20 at 11:13; Status DC Insulin Human Lispro (HumaLOG) 0-5 UNITS Q6HRS SQ Last administered on 02/25/20at 12:38; Start 02/25/20 at 12:00 Dextrose (Dextrose 50%-Water Syringe) 12.5 gm PRN Q15MIN PRN IV SEE COMMENTS; Start 02/25/20 at 08:45 Dextrose 1,000 ml @ 50 mls/hr Q20H IV Last administered on 02/25/20 12:27; Start 02/25/20 at 11:15 Active Scripts Active Reported Flomax (Tamsulosin Hcl) 0.4 Mg Cap.er.24h 1 Cap PO DAILY Allergies Allergies: Coded Allergies: Penicillins (Verified Allergy, Severe, Rash, 02/14/20) ROS Review of System UNABLE TO OBTAIN Physical Exam General: Cooperative, No acute distress HEENT: Atraumatic, PERRLA, Other (DRY MUCOSA) Lungs: Clear to auscultation Heart: Regular rate Abdomen: Normal bowel sounds, No tenderness Extremities: No clubbing Skin: No rashes Neuro: Other (SOMNOLENT) MUSCULOSKELETAL: No joint tenderness, No deformity Vitals VITALS Vital Signs Date Time Temp Pulse Resp B/P (MAP) Pulse Ox O2 Delivery O2 Flow Rate FiO2 02/25/20 15:14 95 Room Air 9/9/20 12:32 112 147/78 02/25/20 10:55 99.6 21 99.6 02/25/20 08:00 3.0 Labs Labs Laboratory Tests Test 02/24/20 11:50 02/24/20 18:01 02/25/20 06:30 02/25/20 06:45 Glucose (Fingerstick) 238 mg/dL (70-99) 201 mg/dL (70-99) 224 mg/dL (70-99) White Blood Count 22.1 x10^3/uL (4.0-11.0) Red Blood Count 5.01 x10^6/uL (4.30-5.70) Hemoglobin 15.0 g/dL (13.0-17.5) Hematocrit 45.6 % (39.0-53.0) Mean Corpuscular Volume 91 fL (79-100) Mean Corpuscular Hemoglobin 30 pg (25-35) Mean Corpuscular Hemoglobin Concent 33 g/dL (31-37) Red Cell Distribution Width 14.4 % (11.5-14.5) Platelet Count 162 x10^3/uL (140-400) Neutrophils (%) (Auto) 88 % (31-73) Lymphocytes (%) (Auto) 5 % (24-48) Monocytes (%) (Auto) 7 % (0-9) Eosinophils (%) (Auto) 0 % (0-3) Basophils (%) (Auto) 0 % (0-3) Neutrophils # (Auto) 19.5 x10^3/uL (1.8-7.7) Lymphocytes # (Auto) 1.0 x10^3/uL (1.0-4.8) Monocytes # (Auto) 1.5 x10^3/uL (0.0-1.1) Eosinophils # (Auto) 0.0 x10^3/uL (0.0-0.7) Basophils # (Auto) 0.0 x10^3/uL (0.0-0.2) Segmented Neutrophils % 87 % (35-66) Band Neutrophils % 2 % (0-9) Lymphocytes % 4 % (24-48) Monocytes % 6 % (0-10) Myelocytes % 1 % (0-0) Platelet Estimate Adequate (ADEQUATE) Sodium Level 160 mmol/L (136-145) Potassium Level 3.8 mmol/L (3.5-5.1) Chloride Level 123 mmol/L (98-107) Carbon Dioxide Level 26 mmol/L (21-32) Anion Gap 11 (6-14) Blood Urea Nitrogen 42 mg/dL (8-26) Creatinine 0.9 mg/dL (0.7-1.3) Estimated GFR (Cockcroft-Gault) 85.0 Glucose Level 240 mg/dL (70-99) Calcium Level 8.9 mg/dL (8.5-10.1) Test 02/25/20 11:53 Glucose (Fingerstick) 248 mg/dL (70-99) Laboratory Tests Test 02/24/20 18:01 02/25/20 06:30 02/25/20 06:45 02/25/20 11:53 Glucose (Fingerstick) 201 mg/dL (70-99) 224 mg/dL (70-99) 248 mg/dL (70-99) White Blood Count 22.1 x10^3/uL (4.0-11.0) Red Blood Count 5.01 x10^6/uL (4.30-5.70) Hemoglobin 15.0 g/dL (13.0-17.5) Hematocrit 45.6 % (39.0-53.0) Mean Corpuscular Volume 91 fL (79-100) Mean Corpuscular Hemoglobin 30 pg (25-35) Mean Corpuscular Hemoglobin Concent 33 g/dL (31-37) Red Cell Distribution Width 14.4 % (11.5-14.5) Platelet Count 162 x10^3/uL (140-400) Neutrophils (%) (Auto) 88 % (31-73) Lymphocytes (%) (Auto) 5 % (24-48) Monocytes (%) (Auto) 7 % (0-9) Eosinophils (%) (Auto) 0 % (0-3) Basophils (%) (Auto) 0 % (0-3) Neutrophils # (Auto) 19.5 x10^3/uL (1.8-7.7) Lymphocytes # (Auto) 1.0 x10^3/uL (1.0-4.8) Monocytes # (Auto) 1.5 x10^3/uL (0.0-1.1) Eosinophils # (Auto) 0.0 x10^3/uL (0.0-0.7) Basophils # (Auto) 0.0 x10^3/uL (0.0-0.2) Segmented Neutrophils % 87 % (35-66) Band Neutrophils % 2 % (0-9) Lymphocytes % 4 % (24-48) Monocytes % 6 % (0-10) Myelocytes % 1 % (0-0) Platelet Estimate Adequate (ADEQUATE) Sodium Level 160 mmol/L (136-145) Potassium Level 3.8 mmol/L (3.5-5.1) Chloride Level 123 mmol/L (98-107) Carbon Dioxide Level 26 mmol/L (21-32) Anion Gap 11 (6-14) Blood Urea Nitrogen 42 mg/dL (8-26) Creatinine 0.9 mg/dL (0.7-1.3) Estimated GFR (Cockcroft-Gault) 85.0 Glucose Level 240 mg/dL (70-99) Calcium Level 8.9 mg/dL (8.5-10.1) Assessment/Plan Assessment/Plan IMP SEVERE HYPERNATREMIA-FREE WATER DEFICIT OF 5.5 LITERS MILD SASCHA DUE TO EXTRACELLULAR VOLUME DEPLETION ICB AND S/P VENTRICULOSTOMY PLAN CONT WITH PPN CHANGE IVF TO D5W IDEALLY CORRECT IN 24 HRS BUT DUE TO LARGE DEFICIT WILL TAKE LONGER WILL FOLLOW IZZY JARQUIN MD Feb 25, 2020 15:32
--- NOTE | 2020-02-25 16:46 | RAD ---
INDICATION: Reason: dobhoff placement / Spl. Instructions: / History: COMPARISON: February 14, 2020 IMPRESSION: Abdomen: Single view obtained. There is a single enteric tube identified with the tip at the right lung base which can be seen with the patient's Dobbhoff tube within the lung. After removal would recommend a chest x-ray to ensure that there is not an associated pneumothorax. Air-filled prominence of some of the loops of bowel at the upper abdomen. Calcifications are again seen at the right chest base. Report called to the patient's nurse at 4:40 PM on date of exam. Electronically signed by: Laureano Forbes MD (02/25/2020 4:43 PM) [id number]
--- NOTE | 2020-02-25 16:56 | NUR ---
Dobhoff tube placement unsuccessful. Stat KUB refills tube in right lung. Removed immediately. Patient SPO2 93% and HR 103 RA. He is currently stable. Son Jose J by bedside. Stat x-ray ordered.
--- NOTE | 2020-02-25 17:20 | RAD ---
EXAM: CHEST ONE VIEW. HISTORY: Tube removal from lung. COMPARISON: 02/16/2020. FINDINGS: A frontal view of the chest is obtained. Infiltrates in both bases have improved but not completely resolved since 02/16/2020. There is some volume loss in the right base. A small right pleural effusion is suspected. There is no pneumothorax. The heart is not enlarged. IMPRESSION: 1. Bibasilar infiltrates persist in the right base, and have mostly resolved on the left. Electronically signed by: Jessy Lambert MD (02/25/2020 5:17 PM) [id number]
[2020-02-25 19:18] VITALS: BP 169/98
[2020-02-25 22:24] VITALS: BP 134/77
[2020-02-26] VITALS (7 sets, daily range): BP systolic 120–149; BP diastolic 71–94
[2020-02-26] MEDS: METOPROLOL TARTRATE 5 MG/5 ML VIAL. IVP SCH ×4 (01:11→18:48)
[2020-02-26] MEDS: hydrALAZINE 20 MG/ML VIAL. IVP SCH ×6 (01:12→20:23)
[2020-02-26 05:54] LABS: CALCIUM 8.8 mg/dL (8.5-10.1); GFR 75.2; POTASSIUM 3.5 mmol/L (3.5-5.1)
[2020-02-26] MEDS: INSULIN LISPRO 300 UNITS/3 ML VIAL. SQ SCH ×4 (06:00→18:00)
--- NOTE | 2020-02-26 07:16 | RAD ---
AP abdomen x-ray HISTORY: Dobbhoff feeding tube placement. COMPARISON: Abdomen x-ray February 25, 2020. FINDINGS: There has been placement of a feeding tube since the prior exam the radiopaque tip left upper quadrant general radiographic region of the gastric fundus. Chronic pleural dense calcification and fibrotic change right lung base again demonstrated. There is mild gas within the left abdominal small bowel air within the large bowel at the upper to mid abdomen. No abnormally dilated bowel loops evident. IMPRESSION: Placement of a feeding tube as described above. Electronically signed by: Elias Downey MD (02/26/2020 7:13 AM) [id number]
[2020-02-26] MEDS: IV DEXTROSE 5% 1,000 ML IV SCH (08:32)
[2020-02-26] MEDS: AMINO AC 3%/ELECTROLYTE/GLYCER 1,000 ML IV SCH ×2 (08:32→20:21)
[2020-02-26] MEDS: PANTOPRAZOLE IV PUSH 40 MG VIAL. IVP SCH (08:34)
[2020-02-26] MEDS: IPRATRPIUM/ALBUTEROL 0.5/2.5MG 3 ML NEBU. NEB SCH ×4 (09:13→20:16)
--- NOTE | 2020-02-26 09:59 | PDOC ---
PROGRESS NOTES Date of Service DATE: 02/26/20 TIME: 09:57 Subjective Subjective No new complaints. Objective Objective Vital Signs Date Time Temp Pulse Resp B/P (MAP) Pulse Ox O2 Delivery O2 Flow Rate FiO2 02/26/20 09:16 100 Room Air 02/26/20 07:00 98.5 95 22 134/86 (102) 98.5 02/25/20 20:00 3.0 Intake and Output 02/26/20 07:00 Intake Total 3320 ml Output Total 2100 ml Balance 1220 ml Intake Oral 0 ml Other 3320 ml Output Urine Total 2100 ml Physical Exam Physical Exam He is resting supine comfortably this AM. No change with his left hemiplegia. Assessment Assessment Problems Medical Problems: (1) Intraparenchymal hemorrhage of brain Status: Acute Plan Plan of Care To continue present care efforts as tolerated. Comment Review of Relevant I have reviewed the following items faraz (where applicable) has been applied. Labs Laboratory Tests Test 02/24/20 11:50 02/24/20 18:01 02/25/20 06:30 02/25/20 06:45 Glucose (Fingerstick) 238 mg/dL (70-99) 201 mg/dL (70-99) 224 mg/dL (70-99) White Blood Count 22.1 x10^3/uL (4.0-11.0) Red Blood Count 5.01 x10^6/uL (4.30-5.70) Hemoglobin 15.0 g/dL (13.0-17.5) Hematocrit 45.6 % (39.0-53.0) Mean Corpuscular Volume 91 fL (79-100) Mean Corpuscular Hemoglobin 30 pg (25-35) Mean Corpuscular Hemoglobin Concent 33 g/dL (31-37) Red Cell Distribution Width 14.4 % (11.5-14.5) Platelet Count 162 x10^3/uL (140-400) Neutrophils (%) (Auto) 88 % (31-73) Lymphocytes (%) (Auto) 5 % (24-48) Monocytes (%) (Auto) 7 % (0-9) Eosinophils (%) (Auto) 0 % (0-3) Basophils (%) (Auto) 0 % (0-3) Neutrophils # (Auto) 19.5 x10^3/uL (1.8-7.7) Lymphocytes # (Auto) 1.0 x10^3/uL (1.0-4.8) Monocytes # (Auto) 1.5 x10^3/uL (0.0-1.1) Eosinophils # (Auto) 0.0 x10^3/uL (0.0-0.7) Basophils # (Auto) 0.0 x10^3/uL (0.0-0.2) Segmented Neutrophils % 87 % (35-66) Band Neutrophils % 2 % (0-9) Lymphocytes % 4 % (24-48) Monocytes % 6 % (0-10) Myelocytes % 1 % (0-0) Platelet Estimate Adequate (ADEQUATE) Sodium Level 160 mmol/L (136-145) Potassium Level 3.8 mmol/L (3.5-5.1) Chloride Level 123 mmol/L (98-107) Carbon Dioxide Level 26 mmol/L (21-32) Anion Gap 11 (6-14) Blood Urea Nitrogen 42 mg/dL (8-26) Creatinine 0.9 mg/dL (0.7-1.3) Estimated GFR (Cockcroft-Gault) 85.0 Glucose Level 240 mg/dL (70-99) Calcium Level 8.9 mg/dL (8.5-10.1) Test 02/25/20 11:53 02/25/20 19:32 02/26/20 00:26 02/26/20 03:20 Glucose (Fingerstick) 248 mg/dL (70-99) 256 mg/dL (70-99) 187 mg/dL (70-99) Sodium Level 157 mmol/L (136-145) Potassium Level 3.5 mmol/L (3.5-5.1) Chloride Level 119 mmol/L (98-107) Carbon Dioxide Level 26 mmol/L (21-32) Anion Gap 12 (6-14) Blood Urea Nitrogen 37 mg/dL (8-26) Creatinine 1.0 mg/dL (0.7-1.3) Estimated GFR (Cockcroft-Gault) 75.2 Glucose Level 218 mg/dL (70-99) Calcium Level 8.8 mg/dL (8.5-10.1) Test 02/26/20 07:03 Glucose (Fingerstick) 240 mg/dL (70-99) Laboratory Tests Test 02/25/20 11:53 02/25/20 19:32 02/26/20 00:26 02/26/20 03:20 Glucose (Fingerstick) 248 mg/dL (70-99) 256 mg/dL (70-99) 187 mg/dL (70-99) Sodium Level 157 mmol/L (136-145) Potassium Level 3.5 mmol/L (3.5-5.1) Chloride Level 119 mmol/L (98-107) Carbon Dioxide Level 26 mmol/L (21-32) Anion Gap 12 (6-14) Blood Urea Nitrogen 37 mg/dL (8-26) Creatinine 1.0 mg/dL (0.7-1.3) Estimated GFR (Cockcroft-Gault) 75.2 Glucose Level 218 mg/dL (70-99) Calcium Level 8.8 mg/dL (8.5-10.1) Test 02/26/20 07:03 Glucose (Fingerstick) 240 mg/dL (70-99) Medications Current Medications Nicardipine HCl 50 mg/Sodium Chloride 250 ml @ 12.5 mls/hr CONT PRN IV SEE I/O RECORD Last administered on 02/23/20at 09:50; Start 02/14/20 at 03:30; Stop 02/25/20 at 11:54; Status DC Ondansetron HCl (Zofran) 8 mg 1X ONCE IVP Last administered on 02/14/20at 03:48; Start 02/14/20 at 04:00; Stop 02/14/20 at 04:01; Status DC Metoclopramide HCl (Reglan Vial) 10 mg STK-MED ONCE .ROUTE ; Start 02/14/20 at 04:00; Stop 02/14/20 at 04:00; Status DC Diphenhydramine HCl (Benadryl) 50 mg STK-MED ONCE .ROUTE ; Start 02/14/20 at 04:02; Stop 02/14/20 at 04:02; Status DC Hydromorphone HCl (Dilaudid) 2 mg STK-MED ONCE .ROUTE ; Start 02/14/20 at 04:02; Stop 02/14/20 at 04:03; Status DC Lidocaine HCl (Lidocaine 1% 20ml Vial) 20 ml STK-MED ONCE .ROUTE ; Start 02/14/20 at 04:11; Stop 02/14/20 at 04:12; Status DC Ondansetron HCl (Zofran) 4 mg PRN Q8HRS PRN IV NAUSEA/VOMITING 1ST CHOICE; Start 02/14/20 at 04:45; Stop 02/15/20 at 04:44; Status DC Morphine Sulfate (Morphine Sulfate) 4 mg PRN Q2HR PRN IV SEVERE PAIN 7-10; Start 02/14/20 at 04:45; Stop 02/15/20 at 04:44; Status DC Rocuronium [place] (Zemuron) 100 mg 1X ONCE IV Last administered on 02/14/20at 04:56; Start 02/14/20 at 05:00; Stop 02/14/20 at 05:01; Status DC Etomidate (Amidate) 20 mg 1X ONCE IV Last administered on 02/14/20at 04:56; Start 02/14/20 at 05:00; Stop 02/14/20 at 05:01; Status DC Fentanyl Citrate (Fentanyl 2ml Vial) 100 mcg 1X ONCE IVP Last administered on 02/14/20at 04:55; Start 02/14/20 at 05:00; Stop 02/14/20 at 05:01; Status DC Propofol (Diprivan) 200 mg STK-MED ONCE IV ; Start 02/14/20 at 05:02; Stop 02/14/20 at 05:03; Status DC Propofol 50 ml @ As Directed STK-MED ONCE IV ; Start 02/14/20 at 05:03; Stop 02/14/20 at 05:03; Status DC Propofol (Diprivan) 200 mg 1X ONCE IV ; Start 02/14/20 at 05:30; Stop 02/14/20 at 05:31; Status DC Vancomycin HCl 250 ml @ 250 mls/hr PREOP PRN PRN IV PREOP Last administered on 02/14/20at 06:48; Start 02/14/20 at 06:00; Stop 02/15/20 at 05:59; Status DC Propofol 100 ml @ 0 mls/hr CONT PRN IV SEE I/O RECORD Last administered on 02/14/20at 11:30; Start 02/14/20 at 06:30; Stop 02/25/20 at 11:51; Status DC Fentanyl Citrate (Fentanyl 2ml Vial) 50 mcg 1X ONCE IVP Last administered on 02/14/20at 06:48; Start 02/14/20 at 07:00; Stop 02/14/20 at 07:01; Status DC Lidocaine HCl (Xylocaine-Mpf 1% 2ml Vial) 2 ml STK-MED ONCE .ROUTE ; Start 02/14/20 at 06:43; Stop 02/14/20 at 06:43; Status DC Fentanyl Citrate (Fentanyl 2ml Vial) 50 mcg 1X ONCE IVP Last administered on 02/14/20at 07:23; Start 02/14/20 at 07:30; Stop 02/14/20 at 07:31; Status DC Fentanyl Citrate 30 ml @ 2.5 mls/hr CONT PRN IV SEE PROTOCOL Last administered on 02/15/20at 09:14; Start 02/14/20 at 07:30; Stop 02/25/20 at 11:51; Status DC Fentanyl Citrate (Fentanyl 2ml Vial) 25 mcg PRN Q1HR PRN IV SEE COMMENTS; Start 02/14/20 at 07:30; Stop 02/15/20 at 18:51; Status DC Fentanyl Citrate (Fentanyl 2ml Vial) 50 mcg PRN Q1HR PRN IV SEE COMMENTS; Start 02/14/20 at 07:30; Stop 02/15/20 at 18:51; Status DC Famotidine (Pepcid Vial) 20 mg BID IVP ; Start 02/14/20 at 21:00; Stop 02/14/20 at 16:18; Status DC Potassium Chloride/Dextrose/ Sod Cl 1,000 ml @ 50 mls/hr Q20H IV Last administered on 02/24/20at 00:16; Start 02/14/20 at 11:30; Stop 02/24/20 at 12:27; Status DC Pantoprazole Sodium (PROTONIX VIAL for IV PUSH) 40 mg DAILYAC IVP Last administered on 02/26/20at 08:34; Start 02/15/20 at 07:30 Vancomycin HCl 1 gm/Sodium Chloride 250 ml @ 250 mls/hr Q12H IV Last administered on 02/17/20at 04:35; Start 02/15/20 at 17:00; Stop 02/17/20 at 07:34; Status DC Vancomycin HCl (Vanco Per Pharmacy) 1 each PRN DAILY PRN MC SEE COMMENTS; Start 02/15/20 at 16:15; Stop 02/17/20 at 07:35; Status DC Fentanyl Citrate (Fentanyl 2ml Vial) 25 mcg Q1HR ONCE IV Last administered on 02/15/20at 18:54; Start 02/15/20 at 19:00; Stop 02/15/20 at 19:01; Status DC Fentanyl Citrate (Fentanyl 2ml Vial) 25 mcg PRN Q1HR PRN IVP SEVERE PAIN 7-10 Last administered on 02/24/20at 04:26; Start 02/15/20 at 22:30 Cefazolin Sodium/ Dextrose (Ancef 2gm Premix) 2 gm STK-MED ONCE IV ; Start 02/14/20 at 07:00; Stop 02/16/20 at 06:46; Status DC Dexamethasone Sodium Phosphate (Decadron) 4 mg Q6HRS IVP Last administered on 02/22/20at 12:04; Start 02/16/20 at 12:00; Stop 02/22/20 at 15:31; Status DC Dexamethasone Sodium Phosphate (Decadron) 4 mg 1X ONCE IVP Last administered on 02/16/20at 07:57; Start 02/16/20 at 08:00; Stop 02/16/20 at 08:01; Status DC Dexmedetomidine HCl 400 mcg/ Sodium Chloride 100 ml @ 0 mls/hr CONT PRN IV PER PROTOCOL Last administered on 02/21/20at 23:32; Start 02/16/20 at 08:30; Stop 02/25/20 at 11:51; Status DC Sodium Chloride 500 ml @ 500 mls/hr 1X PRN PRN IV SEE COMMENTS; Start 02/16/20 at 08:30 Atropine Sulfate (ATROPINE 0.5mg SYRINGE) 0.5 mg PRN Q5MIN PRN IV SEE COMMENTS; Start 02/16/20 at 08:30 Levofloxacin/ Dextrose 100 ml @ 100 mls/hr Q24H IV Last administered on 02/22/20at 12:03; Start 02/16/20 at 12:00; Stop 02/22/20 at 13:37; Status DC Albuterol/ Ipratropium (Duoneb) 3 ml RTQID NEB Last administered on 02/26/20at 09:13; Start 02/16/20 at 12:00 Lorazepam (Ativan Inj) 1 mg PRN Q2HRS PRN IVP ANXIETY / AGITATION Last administered on 02/24/20 08:56; Start 02/18/20 at 09:00 Metoprolol Tartrate (Lopressor Vial) 5 mg Q6HRS IVP Last administered on 02/26/20at 06:02; Start 02/22/20 at 10:30 Hydralazine HCl (Apresoline Inj) 10 mg Q4HRS IVP Last administered on 02/26/20 06:03; Start 02/23/20 at 10:15 Amino Acids/ Glycerin/ Electrolytes 1,000 ml @ 80 mls/hr [id number] IV Last admin istered on 02/26/20 08:32; Start 02/24/20 at 08:00 Potassium Chloride/Dextrose/ Sod Cl 1,000 ml @ 50 mls/hr Q20H IV Last admin istered on 02/25/20at 09:12; Start 02/25/20 at 09:00; Stop 02/25/20 at 11:13; Status DC Insulin Human Lispro (HumaLOG) 0-5 UNITS Q6HRS SQ Last administered on 02/25/20at 19:35; Start 02/25/20 at 12:00 Dextrose (Dextrose 50%-Water Syringe) 12.5 gm PRN Q15MIN PRN IV SEE COMMENTS; Start 02/25/20 at 08:45 Dextrose 1,000 ml @ 50 mls/hr Q20H IV Last administered on 02/26/20at 08:32; Start 02/25/20 at 11:15 Active Scripts Active Reported Flomax (Tamsulosin Hcl) 0.4 Mg Cap.er.24h 1 Cap PO DAILY Vitals/I & O Vital Sign - Last 24 Hours 02/25/20 02/25/20 02/25/20 02/25/20 10:55 11:17 12:27 12:32 Temp 99.6 99.6 Pulse 112 112 112 Resp 21 B/P (MAP) 147/78 (101) 147/78 147/78 Pulse Ox 95 95 O2 Delivery Room Air Room Air 02/25/20 02/25/20 02/25/20 02/25/20 15:00 15:14 17:24 17:25 Temp 99.3 99.3 Pulse 104 95 95 Resp 21 B/P (MAP) 153/85 (107) 137/77 137/77 Pulse Ox 95 95 O2 Delivery Room Air Room Air 02/25/20 02/25/20 02/25/20 02/25/20 19:18 20:00 20:22 20:47 Temp 98.3 98.3 Pulse 100 100 Resp 22 B/P (MAP) 169/98 (121) 169/98 Pulse Ox 96 93 O2 Delivery Room Air Room Air Room Air O2 Flow Rate 3.0 02/25/20 02/26/20 02/26/20 02/26/20 22:24 00:30 01:11 01:12 Temp 97.7 97.7 Pulse 97 100 100 100 Resp 22 18 B/P (MAP) 134/77 (96) 134/74 (94) 134/74 134/74 Pulse Ox 95 O2 Delivery Room Air 02/26/20 02/26/20 02/26/20 02/26/20 02:03 06:02 06:03 07:00 Temp 97.9 98.5 97.9 98.5 Pulse 94 94 94 95 Resp 20 22 B/P (MAP) 131/71 (91) 131/71 131/71 134/86 (102) Pulse Ox 96 97 O2 Delivery Room Air Room Air 02/26/20 09:16 Pulse Ox 100 O2 Delivery Room Air Intake and Output 02/25/20 02/25/20 02/26/20 15:00 23:00 07:00 Intake Total 0 ml 0 ml 3320 ml Output Total 1200 ml 900 ml Balance 0 ml -1200 ml 2420 ml Justifications for Admission Other Justification YCNDEE VASQUEZ MD Feb 26, 2020 09:59
--- NOTE | 2020-02-26 11:26 | PDOC ---
Renal-Progress Notes Subjective Notes Notes NO NEW COMPLAINTS History of Present Illness Hx of present illness CONFUSED Vitals Vitals Vital Signs Date Time Temp Pulse Resp B/P (MAP) Pulse Ox O2 Delivery O2 Flow Rate FiO2 02/26/20 11:00 98.7 96 22 144/94 (111) 100 Room Air 98.7 02/25/20 20:00 3.0 Weight Weight [ ] I.O. Intake and Output Intake and Output 02/26/20 07:00 Intake Total 3320 ml Output Total 2100 ml Balance 1220 ml Intake Oral 0 ml Other 3320 ml Output Urine Total 2100 ml Labs Labs Laboratory Tests Test 02/25/20 11:53 02/25/20 19:32 02/26/20 00:26 02/26/20 03:20 Glucose (Fingerstick) 248 mg/dL (70-99) 256 mg/dL (70-99) 187 mg/dL (70-99) Sodium Level 157 mmol/L (136-145) Potassium Level 3.5 mmol/L (3.5-5.1) Chloride Level 119 mmol/L (98-107) Carbon Dioxide Level 26 mmol/L (21-32) Anion Gap 12 (6-14) Blood Urea Nitrogen 37 mg/dL (8-26) Creatinine 1.0 mg/dL (0.7-1.3) Estimated GFR (Cockcroft-Gault) 75.2 Glucose Level 218 mg/dL (70-99) Calcium Level 8.8 mg/dL (8.5-10.1) Test 02/26/20 07:03 Glucose (Fingerstick) 240 mg/dL (70-99) Review of Systems Constitutional: yes: other (UNABLE TO OBTAIN) Physical Exam General Appearance: no apparent distress Skin: warm Respiratory: bilateral CTA Heart: S1S2 Abdomen: soft, bowel sounds present Genitourinary: bladder flat Extremities: pulses present Neurology: confused, other (sedated) Assessment Assessment IMP SEVERE HYPERNATREMIA-FREE WATER DEFICIT OF 5.5 LITERS-IMPROVING MILD SASCHA DUE TO EXTRACELLULAR VOLUME DEPLETION ICB AND S/P VENTRICULOSTOMY PLAN CONT WITH PPN CONT WITH D5W IDEALLY CORRECT IN 24 HRS BUT DUE TO LARGE DEFICIT WILL TAKE LONGER WILL FOLLOW IZZY JARQUIN MD Feb 26, 2020 11:26
--- NOTE | 2020-02-26 13:26 | NUR ---
SS following up with discharge planning. SS reviewed pt chart and discussed with pt RN. Pt is currently on room air. Pt NPO and has dobhoff. COVID19 negative. Pt accepted at [facility], ; fax [phone], pending insurance authorization. SS will continue to follow for discharge planning.
--- NOTE | 2020-02-26 14:02 | PDOC ---
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 He developed acute hydrocephalus and required an emergent EVD, then removed it 02/17 Acute respiratory failure, extubated. Dense left hemiparesis. Plan No need for prophylactic anticonvulsants Followup CT scans per neurosurgery [facility] Subjective Denies pain Objective Vital Signs Date Time Temp Pulse Resp B/P (MAP) Pulse Ox O2 Delivery O2 Flow Rate FiO2 02/26/20 13:27 81 139/82 02/26/20 12:07 97 Room Air 02/26/20 11:00 98.7 22 98.7 02/25/20 20:00 3.0 Intake and Output 02/26/20 07:00 Intake Total 3320 ml Output Total 2100 ml Balance 1220 ml Intake Oral 0 ml Other 3320 ml Output Urine Total 2100 ml PHYSICAL EXAM Alert, speech much clearer, knows he is in the hospital, follows some commands. PERRL. EOMI. CN: no focal findings. Muscle tone: increased on left Muscle strength: Left hemiparesis DTR: 2+ Plantar reflex: extensor on the left Gait: not examined in bed. Sensory exam: no abnormal findings. No cerebellar signs elicited. Review of Relevant I have reviewed the following items faraz (where applicable) has been applied. Labs Laboratory Tests Test 02/24/20 18:01 02/25/20 06:30 02/25/20 06:45 02/25/20 11:53 Glucose (Fingerstick) 201 mg/dL (70-99) 224 mg/dL (70-99) 248 mg/dL (70-99) White Blood Count 22.1 x10^3/uL (4.0-11.0) Red Blood Count 5.01 x10^6/uL (4.30-5.70) Hemoglobin 15.0 g/dL (13.0-17.5) Hematocrit 45.6 % (39.0-53.0) Mean Corpuscular Volume 91 fL (79-100) Mean Corpuscular Hemoglobin 30 pg (25-35) Mean Corpuscular Hemoglobin Concent 33 g/dL (31-37) Red Cell Distribution Width 14.4 % (11.5-14.5) Platelet Count 162 x10^3/uL (140-400) Neutrophils (%) (Auto) 88 % (31-73) Lymphocytes (%) (Auto) 5 % (24-48) Monocytes (%) (Auto) 7 % (0-9) Eosinophils (%) (Auto) 0 % (0-3) Basophils (%) (Auto) 0 % (0-3) Neutrophils # (Auto) 19.5 x10^3/uL (1.8-7.7) Lymphocytes # (Auto) 1.0 x10^3/uL (1.0-4.8) Monocytes # (Auto) 1.5 x10^3/uL (0.0-1.1) Eosinophils # (Auto) 0.0 x10^3/uL (0.0-0.7) Basophils # (Auto) 0.0 x10^3/uL (0.0-0.2) Segmented Neutrophils % 87 % (35-66) Band Neutrophils % 2 % (0-9) Lymphocytes % 4 % (24-48) Monocytes % 6 % (0-10) Myelocytes % 1 % (0-0) Platelet Estimate Adequate (ADEQUATE) Sodium Level 160 mmol/L (136-145) Potassium Level 3.8 mmol/L (3.5-5.1) Chloride Level 123 mmol/L (98-107) Carbon Dioxide Level 26 mmol/L (21-32) Anion Gap 11 (6-14) Blood Urea Nitrogen 42 mg/dL (8-26) Creatinine 0.9 mg/dL (0.7-1.3) Estimated GFR (Cockcroft-Gault) 85.0 Glucose Level 240 mg/dL (70-99) Calcium Level 8.9 mg/dL (8.5-10.1) Test 02/25/20 19:32 02/26/20 00:26 02/26/20 03:20 02/26/20 07:03 Glucose (Fingerstick) 256 mg/dL (70-99) 187 mg/dL (70-99) 240 mg/dL (70-99) Sodium Level 157 mmol/L (136-145) Potassium Level 3.5 mmol/L (3.5-5.1) Chloride Level 119 mmol/L (98-107) Carbon Dioxide Level 26 mmol/L (21-32) Anion Gap 12 (6-14) Blood Urea Nitrogen 37 mg/dL (8-26) Creatinine 1.0 mg/dL (0.7-1.3) Estimated GFR (Cockcroft-Gault) 75.2 Glucose Level 218 mg/dL (70-99) Calcium Level 8.8 mg/dL (8.5-10.1) Test 02/26/20 11:57 Glucose (Fingerstick) 244 mg/dL (70-99) Laboratory Tests Test 02/25/20 19:32 02/26/20 00:26 02/26/20 03:20 02/26/20 07:03 Glucose (Fingerstick) 256 mg/dL (70-99) 187 mg/dL (70-99) 240 mg/dL (70-99) Sodium Level 157 mmol/L (136-145) Potassium Level 3.5 mmol/L (3.5-5.1) Chloride Level 119 mmol/L (98-107) Carbon Dioxide Level 26 mmol/L (21-32) Anion Gap 12 (6-14) Blood Urea Nitrogen 37 mg/dL (8-26) Creatinine 1.0 mg/dL (0.7-1.3) Estimated GFR (Cockcroft-Gault) 75.2 Glucose Level 218 mg/dL (70-99) Calcium Level 8.8 mg/dL (8.5-10.1) Test 02/26/20 11:57 Glucose (Fingerstick) 244 mg/dL (70-99) Medications Current Medications Nicardipine HCl 50 mg/Sodium Chloride 250 ml @ 12.5 mls/hr CONT PRN IV SEE I/O RECORD Last administered on 02/23/20at 09:50; Start 02/14/20 at 03:30; Stop 02/25/20 at 11:54; Status DC Ondansetron HCl (Zofran) 8 mg 1X ONCE IVP Last administered on 02/14/20at 03:48; Start 02/14/20 at 04:00; Stop 02/14/20 at 04:01; Status DC Metoclopramide HCl (Reglan Vial) 10 mg STK-MED ONCE .ROUTE ; Start 02/14/20 at 04:00; Stop 02/14/20 at 04:00; Status DC Diphenhydramine HCl (Benadryl) 50 mg STK-MED ONCE .ROUTE ; Start 02/14/20 at 04:02; Stop 02/14/20 at 04:02; Status DC Hydromorphone HCl (Dilaudid) 2 mg STK-MED ONCE .ROUTE ; Start 02/14/20 at 04:02; Stop 02/14/20 at 04:03; Status DC Lidocaine HCl (Lidocaine 1% 20ml Vial) 20 ml STK-MED ONCE .ROUTE ; Start 02/14/20 at 04:11; Stop 02/14/20 at 04:12; Status DC Ondansetron HCl (Zofran) 4 mg PRN Q8HRS PRN IV NAUSEA/VOMITING 1ST CHOICE; Start 02/14/20 at 04:45; Stop 02/15/20 at 04:44; Status DC Morphine Sulfate (Morphine Sulfate) 4 mg PRN Q2HR PRN IV SEVERE PAIN 7-10; Start 02/14/20 at 04:45; Stop 02/15/20 at 04:44; Status DC Rocuronium [place] (Zemuron) 100 mg 1X ONCE IV Last administered on 02/14/20at 04:56; Start 02/14/20 at 05:00; Stop 02/14/20 at 05:01; Status DC Etomidate (Amidate) 20 mg 1X ONCE IV Last administered on 02/14/20at 04:56; Start 02/14/20 at 05:00; Stop 02/14/20 at 05:01; Status DC Fentanyl Citrate (Fentanyl 2ml Vial) 100 mcg 1X ONCE IVP Last administered on 02/14/20at 04:55; Start 02/14/20 at 05:00; Stop 02/14/20 at 05:01; Status DC Propofol (Diprivan) 200 mg STK-MED ONCE IV ; Start 02/14/20 at 05:02; Stop at 05:03; Status DC Propofol 50 ml @ As Directed STK-MED ONCE IV ; Start 02/14/20 at 05:03; Stop 02/14/20 at 05:03; Status DC Propofol (Diprivan) 200 mg 1X ONCE IV ; Start 02/14/20 at 05:30; Stop 02/14/20 at 05:31; Status DC Vancomycin HCl 250 ml @ 250 mls/hr PREOP PRN PRN IV PREOP Last administered on 02/14/20at 06:48; Start 02/14/20 at 06:00; Stop 02/15/20 at 05:59; Status DC Propofol 100 ml @ 0 mls/hr CONT PRN IV SEE I/O RECORD Last administered on 02/14/20at 11:30; Start 02/14/20 at 06:30; Stop 02/25/20 at 11:51; Status DC Fentanyl Citrate (Fentanyl 2ml Vial) 50 mcg 1X ONCE IVP Last administered on 02/14/20at 06:48; Start 02/14/20 at 07:00; Stop 02/14/20 at 07:01; Status DC Lidocaine HCl (Xylocaine-Mpf 1% 2ml Vial) 2 ml STK-MED ONCE .ROUTE ; Start 02/14/20 at 06:43; Stop 02/14/20 at 06:43; Status DC Fentanyl Citrate (Fentanyl 2ml Vial) 50 mcg 1X ONCE IVP Last administered on 02/14/20at 07:23; Start 02/14/20 at 07:30; Stop 02/14/20 at 07:31; Status DC Fentanyl Citrate 30 ml @ 2.5 mls/hr CONT PRN IV SEE PROTOCOL Last administered on 02/15/20at 09:14; Start 02/14/20 at 07:30; Stop 02/25/20 at 11:51; Status DC Fentanyl Citrate (Fentanyl 2ml Vial) 25 mcg PRN Q1HR PRN IV SEE COMMENTS; Start 02/14/20 at 07:30; Stop 02/15/20 at 18:51; Status DC Fentanyl Citrate (Fentanyl 2ml Vial) 50 mcg PRN Q1HR PRN IV SEE COMMENTS; Start 02/14/20 at 07:30; Stop 02/15/20 at 18:51; Status DC Famotidine (Pepcid Vial) 20 mg BID IVP ; Start 02/14/20 at 21:00; Stop 02/14/20 at 16:18; Status DC Potassium Chloride/Dextrose/ Sod Cl 1,000 ml @ 50 mls/hr Q20H IV Last administered on 02/24/20at 00:16; Start 02/14/20 at 11:30; Stop 02/24/20 at 12:27; Status DC Pantoprazole Sodium (PROTONIX VIAL for IV PUSH) 40 mg DAILYAC IVP Last administered on 02/26/20at 08:34; Start 02/15/20 at 07:30 Vancomycin HCl 1 gm/Sodium Chloride 250 ml @ 250 mls/hr Q12H IV Last administered on 02/17/20at 04:35; Start 02/15/20 at 17:00; Stop 02/17/20 at 07:34; Status DC Vancomycin HCl (Vanco Per Pharmacy) 1 each PRN DAILY PRN MC SEE COMMENTS; Start 02/15/20 at 16:15; Stop 02/17/20 at 07:35; Status DC Fentanyl Citrate (Fentanyl 2ml Vial) 25 mcg Q1HR ONCE IV Last administered on 02/15/20at 18:54; Start 02/15/20 at 19:00; Stop 02/15/20 at 19:01; Status DC Fentanyl Citrate (Fentanyl 2ml Vial) 25 mcg PRN Q1HR PRN IVP SEVERE PAIN 7-10 Last administered on 02/24/20at 04:26; Start 02/15/20 at 22:30 Cefazolin Sodium/ Dextrose (Ancef 2gm Premix) 2 gm STK-MED ONCE IV ; Start 02/14/20 at 07:00; Stop 02/16/20 at 06:46; Status DC Dexamethasone Sodium Phosphate (Decadron) 4 mg Q6HRS IVP Last administered on 02/22/20at 12:04; Start 02/16/20 at 12:00; Stop 02/22/20 at 15:31; Status DC Dexamethasone Sodium Phosphate (Decadron) 4 mg 1X ONCE IVP Last administered on 02/16/20at 07:57; Start 02/16/20 at 08:00; Stop 02/16/20 at 08:01; Status DC Dexmedetomidine HCl 400 mcg/ Sodium Chloride 100 ml @ 0 mls/hr CONT PRN IV PER PROTOCOL Last administered on 02/21/20at 23:32; Start 02/16/20 at 08:30; Stop 02/25/20 at 11:51; Status DC Sodium Chloride 500 ml @ 500 mls/hr 1X PRN PRN IV SEE COMMENTS; Start 02/16/20 at 08:30 Atropine Sulfate (ATROPINE 0.5mg SYRINGE) 0.5 mg PRN Q5MIN PRN IV SEE COMMENTS; Start 02/16/20 at 08:30 Levofloxacin/ Dextrose 100 ml @ 100 mls/hr Q24H IV Last administered on 02/22/20 12:03; Start 02/16/20 at 12:00; Stop 02/22/20 at 13:37; Status DC Albuterol/ Ipratropium (Duoneb) 3 ml RTQID NEB Last administered on 02/26/20at 12:05; Start 02/16/20 at 12:00 Lorazepam (Ativan Inj) 1 mg PRN Q2HRS PRN IVP ANXIETY / AGITATION Last administered on 02/24/20at 08:56; Start 02/18/20 at 09:00 Metoprolol Tartrate (Lopressor Vial) 5 mg Q6HRS IVP Last administered on 02/26/20 12:31; Start 02/22/20 at 10:30 Hydralazine HCl (Apresoline Inj) 10 mg Q4HRS IVP Last administered on 02/26/20 13:27; Start 02/23/20 at 10:15 Amino Acids/ Glycerin/ Electrolytes 1,000 ml @ 80 mls/hr [id number] IV Last administered on 02/26/20at 08:32; Start 02/24/20 at 08:00 Potassium Chloride/Dextrose/ Sod Cl 1,000 ml @ 50 mls/hr Q20H IV Last administered on 02/25/20at 09:12; Start 02/25/20 at 09:00; Stop 02/25/20 at 11:13; Status DC Insulin Human Lispro (HumaLOG) 0-5 UNITS Q6HRS SQ Last administered on 02/25/20at 19:35; Start 02/25/20 at 12:00 Dextrose (Dextrose 50%-Water Syringe) 12.5 gm PRN Q15MIN PRN IV SEE COMMENTS; Start 02/25/20 at 08:45 Dextrose 1,000 ml @ 50 mls/hr Q20H IV Last administered on 02/26/20 08:32; Start 02/25/20 at 11:15 Active Scripts Active Reported Flomax (Tamsulosin Hcl) 0.4 Mg Cap.er.24h 1 Cap PO DAILY Vitals/I & O Vital Sign - Last 24 Hours 02/25/20 02/25/20 02/25/20 02/25/20 15:00 15:14 17:24 17:25 Temp 99.3 99.3 Pulse 104 95 95 Resp 21 B/P (MAP) 153/85 (107) 137/77 137/77 Pulse Ox 95 95 O2 Delivery Room Air Room Air 02/25/20 02/25/20 02/25/20 02/25/20 19:18 20:00 20:22 20:47 Temp 98.3 98.3 Pulse 100 100 Resp 22 B/P (MAP) 169/98 (121) 169/98 Pulse Ox 96 93 O2 Delivery Room Air Room Air Room Air O2 Flow Rate 3.0 02/25/20 02/26/20 02/26/20 02/26/20 22:24 00:30 01:11 01:12 Temp 97.7 97.7 Pulse 97 100 100 100 Resp 22 18 B/P (MAP) 134/77 (96) 134/74 (94) 134/74 134/74 Pulse Ox 95 O2 Delivery Room Air 02/26/20 02/26/20 02/26/20 02/26/20 02:03 06:02 06:03 07:00 Temp 97.9 98.5 97.9 98.5 Pulse 94 94 94 95 Resp 20 22 B/P (MAP) 131/71 (91) 131/71 131/71 134/86 (102) Pulse Ox 96 97 O2 Delivery Room Air Room Air 02/26/20 02/26/20 02/26/20 02/26/20 08:00 09:16 11:00 12:07 Temp 98.7 98.7 Pulse 96 Resp 22 B/P (MAP) 144/94 (111) Pulse Ox 100 100 97 O2 Delivery Room Air Room Air Room Air Room Air 02/26/20 02/26/20 12:31 13:27 Pulse 98 81 B/P (MAP) 141/88 139/82 Intake and Output 02/25/20 02/25/20 02/26/20 15:00 23:00 07:00 Intake Total 0 ml 0 ml 3320 ml Output Total 1200 ml 900 ml Balance 0 ml -1200 ml 2420 ml Justicifation of Admission Dx: Justifications for Admission: Justification of Admission Dx: Yes Acute Hemorrhagic Stroke: Acute Hemorrhagic Stroke TEE FRANCIS MD Feb 26, 2020 14:02
--- NOTE | 2020-02-26 16:38 | NUR ---
Patient pulled out Dobbhoff before tube feeding was even started today. Patient pulled out with mitt on his hand. Notified Dr. Reardon. Replaced & taped down securely. Awaiting KUB. Will continue to monitor. Addendum: 02/26/20 at 1659 by RACHEL FERRER RN Patient pulled out the replaced Dobbhoff before the KUB could even be done. Dr. Reardon notified.
--- NOTE | 2020-02-26 17:01 | PDOC ---
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 Intraventricular extension of hemorrhage filling much of the right lateral ventricle and extending downwards through the fourth ventricle.hematoma and associated edema exert mass effect on the foramen of Prieto and a portion of the third ventricle. dilatation of the right lateral ventricle temporal horn developing hydrocephalus. 02/13 ctRight frontal approach ventriculostomy . Stable ventricular configurati on. Stable right basal ganglia acute intraparenchymal hemorrhage with intraventricular extension. Mass effect with sulcal effacement and increased suprasellar cistern effacement. Acute hypoxic resp failure Prior old stroke Hyperlipidemia Tobacco abuse Dense left hemiparesis Hypernatremia Plan: will restart 1/2 NS contnue procalamine will try to have ST reeval now that patient seems more awake Continue with supportive measures Patient will certainly require placement patient stable for transfer to the floor failed swallow, he may benefit from a reassessment patient would most likely not do well with dobhoff tube sice he would most likely dislodged it due to the involuntary movements he has, will follow on ST abner History of Present Illness History of Present Illness 02/26/2020 Patient seems to be about the same, he is restless and requires mittens so he does nnot pull on lines and dobhoff tube He managed to disloge his tube for the 2nd time today. We will reassess in the am with the family and address goals of therapy will start Procalamine again in the mean time 02/25/2020 No acute events reported overnight, case discussed with nursing staff patient in no acute distress no complaints during my visit more awake today, will request reeval by ST 02/24/2020 Patient with no acute events reported overnight, patient failed swallow study will start procalamine reeval in the next few days Off Cardene drip transfer to floor when bed available 02/23/2020 Patient now extubated. Patient continues to do fairly well Still left-sided hemiparesis Laboratory data reviewed We will try to wean off Cardene drip Follow senior sustainability consultant recommendations 02/22/2020 Patient seen and examined in the ICU He remains about the same Can barely say 1 word Very sedated and obtunded Has mitts on for patient safety He is on a Cardene drip Has Precedex Also has IV Levaquin Chart reviewed Discussed with RN 02/21/2020 Patient seen and examined in the ICU He is about the same as yesterday makes eye contact tries to speak but I cannot understand him too much Discussed with RN Chart reviewed 02/20/2020 Patient seen and examined in the ICU He is a little more alert he made eye contact with me I asked him if he could hear me he clearly stated yes Discussed with RN Discussed with case operator Chart reviewed next Discussed with respiratory therapy 02/19/2020 Patient seen and examined in the ICU Yesterday pulled out his OVEN OPERATOR pressure monitor and we still have it out for now The CAT scan repeat of the head yesterday showed decrease size of the bleed I discussed the case with case operator I reviewed the chart Discussed with RN He remains critically ill 02/18/2020 Patient seen and examined in the ICU He has mitts on but somehow was able to squeeze onto his OVEN OPERATOR monitor tube and pulled out I discussed case with the case operator and RN Chart reviewed 02/17/2020 Patient seen and examined in the ICU He is on BiPAP His daughter is present Discussed with RN Discussed with case management Chart reviewed Vitals Vitals Vital Signs Date Time Temp Pulse Resp B/P (MAP) Pulse Ox O2 Delivery O2 Flow Rate FiO2 02/26/20 16:00 Room Air 02/26/20 15:00 98.5 97 22 120/82 (95) 97 98.5 02/25/20 20:00 3.0 Physical Exam Physical Exam General: Other (Makes eye contact tries to talk but I cannot understand) Heart: Regular rate Lungs: Clear Abdomen: Normal bowel sounds Extremities: No cyanosis General: Cooperative, No acute distress Heart: Regular rate Lungs: Crackles Abdomen: Normal bowel sounds, No tenderness Extremities: No clubbing Skin: No rashes Labs LABS Laboratory Tests Test 02/25/20 19:32 02/26/20 00:26 02/26/20 03:20 02/26/20 07:03 Glucose (Fingerstick) 256 mg/dL (70-99) 187 mg/dL (70-99) 240 mg/dL (70-99) Sodium Level 157 mmol/L (136-145) Potassium Level 3.5 mmol/L (3.5-5.1) Chloride Level 119 mmol/L (98-107) Carbon Dioxide Level 26 mmol/L (21-32) Anion Gap 12 (6-14) Blood Urea Nitrogen 37 mg/dL (8-26) Creatinine 1.0 mg/dL (0.7-1.3) Estimated GFR (Cockcroft-Gault) 75.2 Glucose Level 218 mg/dL (70-99) Calcium Level 8.8 mg/dL (8.5-10.1) Test 02/26/20 11:57 Glucose (Fingerstick) 244 mg/dL (70-99) Assessment and Plan Assessmemt and Plan Problems Medical Problems: (1) Intraparenchymal hemorrhage of brain Status: Acute Comment Review of Relevant I have reviewed the following items faraz (where applicable) has been applied. Labs Laboratory Tests Test 02/24/20 18:01 02/25/20 06:30 02/25/20 06:45 02/25/20 11:53 Glucose (Fingerstick) 201 mg/dL (70-99) 224 mg/dL (70-99) 248 mg/dL (70-99) White Blood Count 22.1 x10^3/uL (4.0-11.0) Red Blood Count 5.01 x10^6/uL (4.30-5.70) Hemoglobin 15.0 g/dL (13.0-17.5) Hematocrit 45.6 % (39.0-53.0) Mean Corpuscular Volume 91 fL (79-100) Mean Corpuscular Hemoglobin 30 pg (25-35) Mean Corpuscular Hemoglobin Concent 33 g/dL (31-37) Red Cell Distribution Width 14.4 % (11.5-14.5) Platelet Count 162 x10^3/uL (140-400) Neutrophils (%) (Auto) 88 % (31-73) Lymphocytes (%) (Auto) 5 % (24-48) Monocytes (%) (Auto) 7 % (0-9) Eosinophils (%) (Auto) 0 % (0-3) Basophils (%) (Auto) 0 % (0-3) Neutrophils # (Auto) 19.5 x10^3/uL (1.8-7.7) Lymphocytes # (Auto) 1.0 x10^3/uL (1.0-4.8) Monocytes # (Auto) 1.5 x10^3/uL (0.0-1.1) Eosinophils # (Auto) 0.0 x10^3/uL (0.0-0.7) Basophils # (Auto) 0.0 x10^3/uL (0.0-0.2) Segmented Neutrophils % 87 % (35-66) Band Neutrophils % 2 % (0-9) Lymphocytes % 4 % (24-48) Monocytes % 6 % (0-10) Myelocytes % 1 % (0-0) Platelet Estimate Adequate (ADEQUATE) Sodium Level 160 mmol/L (136-145) Potassium Level 3.8 mmol/L (3.5-5.1) Chloride Level 123 mmol/L (98-107) Carbon Dioxide Level 26 mmol/L (21-32) Anion Gap 11 (6-14) Blood Urea Nitrogen 42 mg/dL (8-26) Creatinine 0.9 mg/dL (0.7-1.3) Estimated GFR (Cockcroft-Gault) 85.0 Glucose Level 240 mg/dL (70-99) Calcium Level 8.9 mg/dL (8.5-10.1) Test 02/25/20 19:32 02/26/20 00:26 02/26/20 03:20 02/26/20 07:03 Glucose (Fingerstick) 256 mg/dL (70-99) 187 mg/dL (70-99) 240 mg/dL (70-99) Sodium Level 157 mmol/L (136-145) Potassium Level 3.5 mmol/L (3.5-5.1) Chloride Level 119 mmol/L (98-107) Carbon Dioxide Level 26 mmol/L (21-32) Anion Gap 12 (6-14) Blood Urea Nitrogen 37 mg/dL (8-26) Creatinine 1.0 mg/dL (0.7-1.3) Estimated GFR (Cockcroft-Gault) 75.2 Glucose Level 218 mg/dL (70-99) Calcium Level 8.8 mg/dL (8.5-10.1) Test 02/26/20 11:57 Glucose (Fingerstick) 244 mg/dL (70-99) Laboratory Tests Test 02/25/20 19:32 02/26/20 00:26 02/26/20 03:20 02/26/20 07:03 Glucose (Fingerstick) 256 mg/dL (70-99) 187 mg/dL (70-99) 240 mg/dL (70-99) Sodium Level 157 mmol/L (136-145) Potassium Level 3.5 mmol/L (3.5-5.1) Chloride Level 119 mmol/L (98-107) Carbon Dioxide Level 26 mmol/L (21-32) Anion Gap 12 (6-14) Blood Urea Nitrogen 37 mg/dL (8-26) Creatinine 1.0 mg/dL (0.7-1.3) Estimated GFR (Cockcroft-Gault) 75.2 Glucose Level 218 mg/dL (70-99) Calcium Level 8.8 mg/dL (8.5-10.1) Test 02/26/20 11:57 Glucose (Fingerstick) 244 mg/dL (70-99) Medications Current Medications Nicardipine HCl 50 mg/Sodium Chloride 250 ml @ 12.5 mls/hr CONT PRN IV SEE I/O RECORD Last administered on 02/23/20at 09:50; Start 02/14/20 at 03:30; Stop 02/25/20 at 11:54; Status DC Ondansetron HCl (Zofran) 8 mg 1X ONCE IVP Last administered on 02/14/20at 03:48; Start 02/14/20 at 04:00; Stop 02/14/20 at 04:01; Status DC Metoclopramide HCl (Reglan Vial) 10 mg STK-MED ONCE .ROUTE ; Start 02/14/20 at 04:00; Stop 02/14/20 at 04:00; Status DC Diphenhydramine HCl (Benadryl) 50 mg STK-MED ONCE .ROUTE ; Start 02/14/20 at 04:02; Stop 02/14/20 at 04:02; Status DC Hydromorphone HCl (Dilaudid) 2 mg STK-MED ONCE .ROUTE ; Start 02/14/20 at 04:02; Stop 02/14/20 at 04:03; Status DC Lidocaine HCl (Lidocaine 1% 20ml Vial) 20 ml STK-MED ONCE .ROUTE ; Start 02/14/20 at 04:11; Stop 02/14/20 at 04:12; Status DC Ondansetron HCl (Zofran) 4 mg PRN Q8HRS PRN IV NAUSEA/VOMITING 1ST CHOICE; Start 02/14/20 at 04:45; Stop 02/15/20 at 04:44; Status DC Morphine Sulfate (Morphine Sulfate) 4 mg PRN Q2HR PRN IV SEVERE PAIN 7-10; Start 02/14/20 at 04:45; Stop 02/15/20 at 04:44; Status DC Rocuronium Rydal (Zemuron) 100 mg 1X ONCE IV Last administered on 02/14/20at 04:56; Start 02/14/20 at 05:00; Stop 02/14/20 at 05:01; Status DC Etomidate (Amidate) 20 mg 1X ONCE IV Last administered on 02/14/20at 04:56; Start 02/14/20 at 05:00; Stop 02/14/20 at 05:01; Status DC Fentanyl Citrate (Fentanyl 2ml Vial) 100 mcg 1X ONCE IVP Last administered on 02/14/20at 04:55; Start 02/14/20 at 05:00; Stop 02/14/20 at 05:01; Status DC Propofol (Diprivan) 200 mg STK-MED ONCE IV ; Start 02/14/20 at 05:02; Stop 02/14/20 at 05:03; Status DC Propofol 50 ml @ As Directed STK-MED ONCE IV ; Start 02/14/20 at 05:03; Stop 02/14/20 at 05:03; Status DC Propofol (Diprivan) 200 mg 1X ONCE IV ; Start 02/14/20 at 05:30; Stop 02/14/20 at 05:31; Status DC Vancomycin HCl 250 ml @ 250 mls/hr PREOP PRN PRN IV PREOP Last administered on 02/14/20at 06:48; Start 02/14/20 at 06:00; Stop 02/15/20 at 05:59; Status DC Propofol 100 ml @ 0 mls/hr CONT PRN IV SEE I/O RECORD Last administered on 02/14/20at 11:30; Start 02/14/20 at 06:30; Stop 02/25/20 at 11:51; Status DC Fentanyl Citrate (Fentanyl 2ml Vial) 50 mcg 1X ONCE IVP Last administered on 02/14/20at 06:48; Start 02/14/20 at 07:00; Stop 02/14/20 at 07:01; Status DC Lidocaine HCl (Xylocaine-Mpf 1% 2ml Vial) 2 ml STK-MED ONCE .ROUTE ; Start 02/14/20 at 06:43; Stop 02/14/20 at 06:43; Status DC Fentanyl Citrate (Fentanyl 2ml Vial) 50 mcg 1X ONCE IVP Last administered on 02/14/20at 07:23; Start 02/14/20 at 07:30; Stop 02/14/20 at 07:31; Status DC Fentanyl Citrate 30 ml @ 2.5 mls/hr CONT PRN IV SEE PROTOCOL Last administered on 02/15/20at 09:14; Start 02/14/20 at 07:30; Stop 02/25/20 at 11:51; Status DC Fentanyl Citrate (Fentanyl 2ml Vial) 25 mcg PRN Q1HR PRN IV SEE COMMENTS; Start 02/14/20 at 07:30; Stop 02/15/20 at 18:51; Status DC Fentanyl Citrate (Fentanyl 2ml Vial) 50 mcg PRN Q1HR PRN IV SEE COMMENTS; Start 02/14/20 at 07:30; Stop 02/15/20 at 18:51; Status DC Famotidine (Pepcid Vial) 20 mg BID IVP ; Start 02/14/20 at 21:00; Stop 02/14/20 at 16:18; Status DC Potassium Chloride/Dextrose/ Sod Cl 1,000 ml @ 50 mls/hr Q20H IV Last administered on 02/24/20at 00:16; Start 02/14/20 at 11:30; Stop 02/24/20 at 12:27; Status DC Pantoprazole Sodium (PROTONIX VIAL for IV PUSH) 40 mg DAILYAC IVP Last administered on 02/26/20at 08:34; Start 02/15/20 at 07:30 Vancomycin HCl 1 gm/Sodium Chloride 250 ml @ 250 mls/hr Q12H IV Last administered on 02/17/20at 04:35; Start 02/15/20 at 17:00; Stop 02/17/20 at 07:34; Status DC Vancomycin HCl (Vanco Per Pharmacy) 1 each PRN DAILY PRN MC SEE COMMENTS; Start 02/15/20 at 16:15; Stop 02/17/20 at 07:35; Status DC Fentanyl Citrate (Fentanyl 2ml Vial) 25 mcg Q1HR ONCE IV Last administered on 02/15/20at 18:54; Start 02/15/20 at 19:00; Stop 02/15/20 at 19:01; Status DC Fentanyl Citrate (Fentanyl 2ml Vial) 25 mcg PRN Q1HR PRN IVP SEVERE PAIN 7-10 Last administered on 02/24/20at 04:26; Start 02/15/20 at 22:30 Cefazolin Sodium/ Dextrose (Ancef 2gm Premix) 2 gm STK-MED ONCE IV ; Start 02/14/20 at 07:00; Stop 02/16/20 at 06:46; Status DC Dexamethasone Sodium Phosphate (Decadron) 4 mg Q6HRS IVP Last administered on 02/22/20at 12:04; Start 02/16/20 at 12:00; Stop 02/22/20 at 15:31; Status DC Dexamethasone Sodium Phosphate (Decadron) 4 mg 1X ONCE IVP Last administered on 02/16/20at 07:57; Start 02/16/20 at 08:00; Stop 02/16/20 at 08:01; Status DC Dexmedetomidine HCl 400 mcg/ Sodium Chloride 100 ml @ 0 mls/hr CONT PRN IV PER PROTOCOL Last administered on 02/21/20at 23:32; Start 02/16/20 at 08:30; Stop 02/25/20 at 11:51; Status DC Sodium Chloride 500 ml @ 500 mls/hr 1X PRN PRN IV SEE COMMENTS; Start 02/16/20 at 08:30 Atropine Sulfate (ATROPINE 0.5mg SYRINGE) 0.5 mg PRN Q5MIN PRN IV SEE COMMENTS; Start 02/16/20 at 08:30 Levofloxacin/ Dextrose 100 ml @ 100 mls/hr Q24H IV Last administered on 02/22/20at 12:03; Start 02/16/20 at 12:00; Stop 02/22/20 at 13:37; Status DC Albuterol/ Ipratropium (Duoneb) 3 ml RTQID NEB Last administered on 02/26/20at 15:59; Start 02/16/20 at 12:00 Lorazepam (Ativan Inj) 1 mg PRN Q2HRS PRN IVP ANXIETY / AGITATION Last administered on 02/24/20at 08:56; Start 02/18/20 at 09:00 Metoprolol Tartrate (Lopressor Vial) 5 mg Q6HRS IVP Last administered on 02/26/20at 12:31; Start 02/22/20 at 10:30 Hydralazine HCl (Apresoline Inj) 10 mg Q4HRS IVP Last administered on 02/26/20at 13:27; Start 02/23/20 at 10:15 Amino Acids/ Glycerin/ Electrolytes 1,000 ml @ 80 mls/hr [id number] IV Last administered on 02/26/20at 08:32; Start 02/24/20 at 08:00 Potassium Chloride/Dextrose/ Sod Cl 1,000 ml @ 50 mls/hr Q20H IV Last administered on 02/25/20at 09:12; Start 02/25/20 at 09:00; Stop 02/25/20 at 11:13; Status DC Insulin Human Lispro (HumaLOG) 0-5 UNITS Q6HRS SQ Last administered on 02/25/20at 19:35; Start 02/25/20 at 12:00 Dextrose (Dextrose 50%-Water Syringe) 12.5 gm PRN Q15MIN PRN IV SEE COMMENTS; Start 02/25/20 at 08:45 Dextrose 1,000 ml @ 50 mls/hr Q20H IV Last administered on 02/26/20at 08:32; Start 02/25/20 at 11:15 Active Scripts Active Reported Flomax (Tamsulosin Hcl) 0.4 Mg Cap.er.24h 1 Cap PO DAILY Vitals/I & O Vital Sign - Last 24 Hours 02/25/20 02/25/20 02/25/20 02/25/20 17:24 17:25 19:18 20:00 Temp 98.3 98.3 Pulse 95 95 100 Resp 22 B/P (MAP) 137/77 137/77 169/98 (121) Pulse Ox 96 O2 Delivery Room Air Room Air O2 Flow Rate 3.0 02/25/20 02/25/20 02/25/20 02/26/20 20:22 20:47 22:24 00:30 Temp 97.7 97.7 Pulse 100 97 100 Resp 22 18 B/P (MAP) 169/98 134/77 (96) 134/74 (94) Pulse Ox 93 95 O2 Delivery Room Air Room Air 02/26/20 02/26/20 02/26/20 02/26/20 01:11 01:12 02:03 06:02 Temp 97.9 97.9 Pulse 100 100 94 94 Resp 20 B/P (MAP) 134/74 134/74 131/71 (91) 131/71 Pulse Ox 96 O2 Delivery Room Air 02/26/20 02/26/20 02/26/20 02/26/20 06:03 07:00 08:00 09:16 Temp 98.5 98.5 Pulse 94 95 Resp 22 B/P (MAP) 131/71 134/86 (102) Pulse Ox 97 100 O2 Delivery Room Air Room Air Room Air 02/26/20 02/26/20 02/26/20 02/26/20 11:00 12:07 12:31 13:27 Temp 98.7 98.7 Pulse 96 98 81 Resp 22 B/P (MAP) 144/94 (111) 141/88 139/82 Pulse Ox 100 97 O2 Delivery Room Air Room Air 02/26/20 02/26/20 15:00 16:00 Temp 98.5 98.5 Pulse 97 Resp 22 B/P (MAP) 120/82 (95) Pulse Ox 97 O2 Delivery Room Air Room Air Intake and Output 02/25/20 02/25/20 02/26/20 15:00 23:00 07:00 Intake Total 0 ml 0 ml 3320 ml Output Total 1200 ml 900 ml Balance 0 ml -1200 ml 2420 ml Justicifation of Admission Dx: Justifications for Admission: Justification of Admission Dx: Yes Acute Hemorrhagic Stroke: Acute Hemorrhagic Stroke JADE CLAROS MD Feb 26, 2020 17:01
[2020-02-26] MEDS ORDERED: IV DEXTROSE 5 %-0.45 % NACL 1,000 ML IV ONE (17:15)
[2020-02-27] MEDS: METOPROLOL TARTRATE 5 MG/5 ML VIAL. IVP SCH ×5 (00:57→23:11)
[2020-02-27] MEDS: hydrALAZINE 20 MG/ML VIAL. IVP SCH ×7 (00:58→23:11)
[2020-02-27] MEDS: INSULIN LISPRO 300 UNITS/3 ML VIAL. SQ SCH ×4 (01:07→18:00)
[2020-02-27 02:20] VITALS: BP 110/64
[2020-02-27] MEDS: IV DEXTROSE 5% 1,000 ML IV SCH (03:15)
[2020-02-27 05:43] LABS: BASO # 0.1 x10^3/uL (0.0-0.2); BASO % 0 % (0-3); EOS % 0 % (0-3); HEMATOCRIT 43.4 % (39.0-53.0); HEMOGLOBIN 14.4 g/dL (13.0-17.5); LYMPH # 1.2 x10^3/uL (1.0-4.8); LYMPH % 5 % (24-48); MEAN CORPUSCULAR HEMOGLOBIN 30 pg (25-35); MEAN CORPUSCULAR HGB CONC 33 g/dL (31-37); MEAN CORPUSCULAR VOLUME 91 fL (79-100); MONO # 1.1 x10^3/uL (0.0-1.1); MONO % 5 % (0-9); NEUT # 19.6 x10^3/uL (1.8-7.7); NEUT % 89 % (31-73); PLATELET COUNT 117 x10^3/uL (140-400); RED BLOOD COUNT 4.76 x10^6/uL (4.30-5.70); RED CELL DISTRIBUTION WIDTH 14.4 % (11.5-14.5)
[2020-02-27 05:53] LABS: CALCIUM 8.7 mg/dL (8.5-10.1); CREATININE 0.9 mg/dL (0.7-1.3); POTASSIUM 4.1 mmol/L (3.5-5.1)
[2020-02-27] MEDS: AMINO AC 3%/ELECTROLYTE/GLYCER 1,000 ML IV SCH ×2 (05:53→18:15)
[2020-02-27 07:16] VITALS: BP 131/84
[2020-02-27] MEDS: IPRATRPIUM/ALBUTEROL 0.5/2.5MG 3 ML NEBU. NEB SCH ×4 (07:58→19:30)
[2020-02-27] MEDS: PANTOPRAZOLE IV PUSH 40 MG VIAL. IVP SCH (08:17)
--- NOTE | 2020-02-27 09:18 | PDOC ---
PROGRESS NOTES Date of Service DATE: 02/27/20 TIME: 09:15 Subjective Subjective No new complaints. Objective Objective Vital Signs Date Time Temp Pulse Resp B/P (MAP) Pulse Ox O2 Delivery O2 Flow Rate FiO2 02/27/20 07:58 96 Room Air 02/27/20 07:16 97.9 102 18 131/84 (100) 97.9 02/26/20 20:00 3.0 Intake and Output 02/27/20 07:00 Intake Total 3460 ml Output Total 1500 ml Balance 1960 ml Intake Oral 0 ml IV Total 1900 ml Other 1560 ml Output Urine Total 1500 ml Physical Exam Physical Exam He is resting supine in bed and continues with left hemiplegia. Assessment Assessment Problems Medical Problems: (1) Intraparenchymal hemorrhage of brain Status: Acute Plan Plan of Care To continue present care efforts as tolerated. Comment Review of Relevant I have reviewed the following items faraz (where applicable) has been applied. Labs Laboratory Tests Test 02/25/20 11:53 02/25/20 19:32 02/26/20 00:26 02/26/20 03:20 Glucose (Fingerstick) 248 mg/dL (70-99) 256 mg/dL (70-99) 187 mg/dL (70-99) Sodium Level 157 mmol/L (136-145) Potassium Level 3.5 mmol/L (3.5-5.1) Chloride Level 119 mmol/L (98-107) Carbon Dioxide Level 26 mmol/L (21-32) Anion Gap 12 (6-14) Blood Urea Nitrogen 37 mg/dL (8-26) Creatinine 1.0 mg/dL (0.7-1.3) Estimated GFR (Cockcroft-Gault) 75.2 Glucose Level 218 mg/dL (70-99) Calcium Level 8.8 mg/dL (8.5-10.1) Test 02/26/20 07:03 02/26/20 11:57 02/26/20 18:58 02/27/20 00:53 Glucose (Fingerstick) 240 mg/dL (70-99) 244 mg/dL (70-99) 244 mg/dL (70-99) 253 mg/dL (70-99) Test 02/27/20 05:00 02/27/20 05:58 White Blood Count 22.0 x10^3/uL (4.0-11.0) Red Blood Count 4.76 x10^6/uL (4.30-5.70) Hemoglobin 14.4 g/dL (13.0-17.5) Hematocrit 43.4 % (39.0-53.0) Mean Corpuscular Volume 91 fL (79-100) Mean Corpuscular Hemoglobin 30 pg (25-35) Mean Corpuscular Hemoglobin Concent 33 g/dL (31-37) Red Cell Distribution Width 14.4 % (11.5-14.5) Platelet Count 117 x10^3/uL (140-400) Neutrophils (%) (Auto) 89 % (31-73) Lymphocytes (%) (Auto) 5 % (24-48) Monocytes (%) (Auto) 5 % (0-9) Eosinophils (%) (Auto) 0 % (0-3) Basophils (%) (Auto) 0 % (0-3) Neutrophils # (Auto) 19.6 x10^3/uL (1.8-7.7) Lymphocytes # (Auto) 1.2 x10^3/uL (1.0-4.8) Monocytes # (Auto) 1.1 x10^3/uL (0.0-1.1) Eosinophils # (Auto) 0.0 x10^3/uL (0.0-0.7) Basophils # (Auto) 0.1 x10^3/uL (0.0-0.2) Sodium Level 150 mmol/L (136-145) Potassium Level 4.1 mmol/L (3.5-5.1) Chloride Level 115 mmol/L (98-107) Carbon Dioxide Level 27 mmol/L (21-32) Anion Gap 8 (6-14) Blood Urea Nitrogen 30 mg/dL (8-26) Creatinine 0.9 mg/dL (0.7-1.3) Estimated GFR (Cockcroft-Gault) 85.0 Glucose Level 264 mg/dL (70-99) Calcium Level 8.7 mg/dL (8.5-10.1) Glucose (Fingerstick) 217 mg/dL (70-99) Laboratory Tests Test 02/26/20 11:57 02/26/20 18:58 02/27/20 00:53 02/27/20 05:00 Glucose (Fingerstick) 244 mg/dL (70-99) 244 mg/dL (70-99) 253 mg/dL (70-99) White Blood Count 22.0 x10^3/uL (4.0-11.0) Red Blood Count 4.76 x10^6/uL (4.30-5.70) Hemoglobin 14.4 g/dL (13.0-17.5) Hematocrit 43.4 % (39.0-53.0) Mean Corpuscular Volume 91 fL (79-100) Mean Corpuscular Hemoglobin 30 pg (25-35) Mean Corpuscular Hemoglobin Concent 33 g/dL (31-37) Red Cell Distribution Width 14.4 % (11.5-14.5) Platelet Count 117 x10^3/uL (140-400) Neutrophils (%) (Auto) 89 % (31-73) Lymphocytes (%) (Auto) 5 % (24-48) Monocytes (%) (Auto) 5 % (0-9) Eosinophils (%) (Auto) 0 % (0-3) Basophils (%) (Auto) 0 % (0-3) Neutrophils # (Auto) 19.6 x10^3/uL (1.8-7.7) Lymphocytes # (Auto) 1.2 x10^3/uL (1.0-4.8) Monocytes # (Auto) 1.1 x10^3/uL (0.0-1.1) Eosinophils # (Auto) 0.0 x10^3/uL (0.0-0.7) Basophils # (Auto) 0.1 x10^3/uL (0.0-0.2) Sodium Level 150 mmol/L (136-145) Potassium Level 4.1 mmol/L (3.5-5.1) Chloride Level 115 mmol/L (98-107) Carbon Dioxide Level 27 mmol/L (21-32) Anion Gap 8 (6-14) Blood Urea Nitrogen 30 mg/dL (8-26) Creatinine 0.9 mg/dL (0.7-1.3) Estimated GFR (Cockcroft-Gault) 85.0 Glucose Level 264 mg/dL (70-99) Calcium Level 8.7 mg/dL (8.5-10.1) Test 02/27/20 05:58 Glucose (Fingerstick) 217 mg/dL (70-99) Medications Current Medications Nicardipine HCl 50 mg/Sodium Chloride 250 ml @ 12.5 mls/hr CONT PRN IV SEE I/O RECORD Last administered on 02/23/20at 09:50; Start 02/14/20 at 03:30; Stop 02/25/20 at 11:54; Status DC Ondansetron HCl (Zofran) 8 mg 1X ONCE IVP Last administered on 02/14/20at 03:48; Start 02/14/20 at 04:00; Stop 02/14/20 at 04:01; Status DC Metoclopramide HCl (Reglan Vial) 10 mg STK-MED ONCE .ROUTE ; Start 02/14/20 at 04:00; Stop 02/14/20 at 04:00; Status DC Diphenhydramine HCl (Benadryl) 50 mg STK-MED ONCE .ROUTE ; Start 02/14/20 at 04:02; Stop 02/14/20 at 04:02; Status DC Hydromorphone HCl (Dilaudid) 2 mg STK-MED ONCE .ROUTE ; Start 02/14/20 at 04:02; Stop 02/14/20 at 04:03; Status DC Lidocaine HCl (Lidocaine 1% 20ml Vial) 20 ml STK-MED ONCE .ROUTE ; Start 02/14/20 at 04:11; Stop 02/14/20 at 04:12; Status DC Ondansetron HCl (Zofran) 4 mg PRN Q8HRS PRN IV NAUSEA/VOMITING 1ST CHOICE; Start 02/14/20 at 04:45; Stop 02/15/20 at 04:44; Status DC Morphine Sulfate (Morphine Sulfate) 4 mg PRN Q2HR PRN IV SEVERE PAIN 7-10; Start 02/14/20 at 04:45; Stop 02/15/20 at 04:44; Status DC Rocuronium [place] (Zemuron) 100 mg 1X ONCE IV Last administered on 02/14/20at 04:56; Start 02/14/20 at 05:00; Stop 02/14/20 at 05:01; Status DC Etomidate (Amidate) 20 mg 1X ONCE IV Last administered on 02/14/20at 04:56; Start 02/14/20 at 05:00; Stop 02/14/20 at 05:01; Status DC Fentanyl Citrate (Fentanyl 2ml Vial) 100 mcg 1X ONCE IVP Last administered on 02/14/20at 04:55; Start 02/14/20 at 05:00; Stop 02/14/20 at 05:01; Status DC Propofol (Diprivan) 200 mg STK-MED ONCE IV ; Start 02/14/20 at 05:02; Stop 02/14/20 at 05:03; Status DC Propofol 50 ml @ As Directed STK-MED ONCE IV ; Start 02/14/20 at 05:03; Stop 02/14/20 at 05:03; Status DC Propofol (Diprivan) 200 mg 1X ONCE IV ; Start 02/14/20 at 05:30; Stop 02/14/20 at 05:31; Status DC Vancomycin HCl 250 ml @ 250 mls/hr PREOP PRN PRN IV PREOP Last administered on 02/14/20at 06:48; Start 02/14/20 at 06:00; Stop 02/15/20 at 05:59; Status DC Propofol 100 ml @ 0 mls/hr CONT PRN IV SEE I/O RECORD Last administered on 02/14/20at 11:30; Start 02/14/20 at 06:30; Stop 02/25/20 at 11:51; Status DC Fentanyl Citrate (Fentanyl 2ml Vial) 50 mcg 1X ONCE IVP Last administered on 02/14/20at 06:48; Start 02/14/20 at 07:00; Stop 02/14/20 at 07:01; Status DC Lidocaine HCl (Xylocaine-Mpf 1% 2ml Vial) 2 ml STK-MED ONCE .ROUTE ; Start 02/14/20 at 06:43; Stop 02/14/20 at 06:43; Status DC Fentanyl Citrate (Fentanyl 2ml Vial) 50 mcg 1X ONCE IVP Last administered on 02/14/20at 07:23; Start 02/14/20 at 07:30; Stop 02/14/20 at 07:31; Status DC Fentanyl Citrate 30 ml @ 2.5 mls/hr CONT PRN IV SEE PROTOCOL Last administered on 02/15/20at 09:14; Start 02/14/20 at 07:30; Stop 02/25/20 at 11:51; Status DC Fentanyl Citrate (Fentanyl 2ml Vial) 25 mcg PRN Q1HR PRN IV SEE COMMENTS; Start 02/14/20 at 07:30; Stop 02/15/20 at 18:51; Status DC Fentanyl Citrate (Fentanyl 2ml Vial) 50 mcg PRN Q1HR PRN IV SEE COMMENTS; Start 02/14/20 at 07:30; Stop 02/15/20 at 18:51; Status DC Famotidine (Pepcid Vial) 20 mg BID IVP ; Start 02/14/20 at 21:00; Stop 02/14/20 at 16:18; Status DC Potassium Chloride/Dextrose/ Sod Cl 1,000 ml @ 50 mls/hr Q20H IV Last administered on 02/24/20at 00:16; Start 02/14/20 at 11:30; Stop 02/24/20 at 12:27; Status DC Pantoprazole Sodium (PROTONIX VIAL for IV PUSH) 40 mg DAILYAC IVP Last administered on 02/27/20at 08:17; Start 02/15/20 at 07:30 Vancomycin HCl 1 gm/Sodium Chloride 250 ml @ 250 mls/hr Q12H IV Last administered on 02/17/20at 04:35; Start 02/15/20 at 17:00; Stop 02/17/20 at 07:34; Status DC Vancomycin HCl (Vanco Per Pharmacy) 1 each PRN DAILY PRN MC SEE COMMENTS; Start 02/15/20 at 16:15; Stop 02/17/20 at 07:35; Status DC Fentanyl Citrate (Fentanyl 2ml Vial) 25 mcg Q1HR ONCE IV Last administered on 02/15/20at 18:54; Start 02/15/20 at 19:00; Stop 02/15/20 at 19:01; Status DC Fentanyl Citrate (Fentanyl 2ml Vial) 25 mcg PRN Q1HR PRN IVP SEVERE PAIN 7-10 Last administered on 02/24/20at 04:26; Start 02/15/20 at 22:30 Cefazolin Sodium/ Dextrose (Ancef 2gm Premix) 2 gm STK-MED ONCE IV ; Start 02/14/20 at 07:00; Stop 02/16/20 at 06:46; Status DC Dexamethasone Sodium Phosphate (Decadron) 4 mg Q6HRS IVP Last administered on 02/22/20at 12:04; Start 02/16/20 at 12:00; Stop 02/22/20 at 15:31; Status DC Dexamethasone Sodium Phosphate (Decadron) 4 mg 1X ONCE IVP Last administered on 02/16/20at 07:57; Start 02/16/20 at 08:00; Stop 02/16/20 at 08:01; Status DC Dexmedetomidine HCl 400 mcg/ Sodium Chloride 100 ml @ 0 mls/hr CONT PRN IV PER PROTOCOL Last administered on 02/21/20at 23:32; Start 02/16/20 at 08:30; Stop 02/25/20 at 11:51; Status DC Sodium Chloride 500 ml @ 500 mls/hr 1X PRN PRN IV SEE COMMENTS; Start 02/16/20 at 08:30 Atropine Sulfate (ATROPINE 0.5mg SYRINGE) 0.5 mg PRN Q5MIN PRN IV SEE COMMENTS; Start 02/16/20 at 08:30 Levofloxacin/ Dextrose 100 ml @ 100 mls/hr Q24H IV Last administered on 02/22/20at 12:03; Start 02/16/20 at 12:00; Stop 02/22/20 at 13:37; Status DC Albuterol/ Ipratropium (Duoneb) 3 ml RTQID NEB Last administered on 02/27/20at 07:58; Start 02/16/20 at 12:00 Lorazepam (Ativan Inj) 1 mg PRN Q2HRS PRN IVP ANXIETY / AGITATION Last administered on 02/27/20at 01:00; Start 02/18/20 at 09:00 Metoprolol Tartrate (Lopressor Vial) 5 mg Q6HRS IVP Last administered on 02/27/20at 06:14; Start 02/22/20 at 10:30 Hydralazine HCl (Apresoline Inj) 10 mg Q4HRS IVP Last administered on 02/27/20at 05:52; Start 02/23/20 at 10:15 Amino Acids/ Glycerin/ Electrolytes 1,000 ml @ 80 mls/hr [id number] IV Last administered on 02/26/20at 08:32; Start 02/24/20 at 08:00; Stop 02/26/20 at 17:07; Status DC Potassium Chloride/Dextrose/ Sod Cl 1,000 ml @ 50 mls/hr Q20H IV Last administered on 02/25/20at 09:12; Start 02/25/20 at 09:00; Stop 02/25/20 at 11:13; Status DC Insulin Human Lispro (HumaLOG) 0-5 UNITS Q6HRS SQ Last administered on 02/27/20at 01:07; Start 02/25/20 at 12:00 Dextrose (Dextrose 50%-Water Syringe) 12.5 gm PRN Q15MIN PRN IV SEE COMMENTS; Start 02/25/20 at 08:45 Dextrose 1,000 ml @ 50 mls/hr Q20H IV Last administered on 02/26/20at 08:32; Start 02/25/20 at 11:15 Dextrose/Sodium Chloride 1,000 ml @ 75 mls/hr 1X ONCE IV Last administered on 02/26/20at 20:21; Start 02/26/20 at 17:15; Stop 02/27/20 at 06:34; Status DC Amino Acids/ Glycerin/ Electrolytes 1,000 ml @ 80 mls/hr [id number] IV Last administered on 02/27/20at 05:53; Start 02/26/20 at 17:15 Active Scripts Active Reported Flomax (Tamsulosin Hcl) 0.4 Mg Cap.er.24h 1 Cap PO DAILY Vitals/I & O Vital Sign - Last 24 Hours 02/26/20 02/26/20 02/26/20 02/26/20 09:16 11:00 12:07 12:31 Temp 98.7 98.7 Pulse 96 98 Resp 22 B/P (MAP) 144/94 (111) 141/88 Pulse Ox 100 100 97 O2 Delivery Room Air Room Air Room Air 02/26/20 02/26/20 02/26/20 02/26/20 13:27 15:00 16:00 17:39 Temp 98.5 98.5 Pulse 81 97 77 Resp 22 B/P (MAP) 139/82 120/82 (95) 138/81 Pulse Ox 97 O2 Delivery Room Air Room Air 02/26/20 02/26/20 02/26/20 02/26/20 18:48 19:15 20:00 20:16 Temp 98.5 98.5 Pulse 99 99 Resp 20 B/P (MAP) 129/81 129/81 (97) Pulse Ox 98 96 O2 Delivery Room Air Room Air Room Air O2 Flow Rate 3.0 02/26/20 02/26/20 02/27/20 02/27/20 20:23 22:08 00:57 00:58 Temp 98.1 98.1 Pulse 99 84 84 84 Resp 18 B/P (MAP) 129/81 149/79 (102) 149/79 149/79 Pulse Ox 97 O2 Delivery Room Air 02/27/20 02/27/20 02/27/20 02/27/20 02:20 05:52 06:14 07:16 Temp 98.4 97.9 98.4 97.9 Pulse 74 74 74 102 Resp 18 18 B/P (MAP) 110/64 (79) 110/64 110/64 131/84 (100) Pulse Ox 94 95 O2 Delivery Room Air Room Air 02/27/20 07:58 Pulse Ox 96 O2 Delivery Room Air Intake and Output 02/26/20 02/26/20 02/27/20 15:00 23:00 07:00 Intake Total 1900 ml 0 ml 1560 ml Output Total 750 ml 750 ml Balance 1900 ml -750 ml 810 ml Justifications for Admission Other Justification CYNDEE VASQUEZ MD Feb 27, 2020 09:18
--- NOTE | 2020-02-27 09:42 | PDOC ---
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 He developed acute hydrocephalus and required an emergent EVD, then removed it 02/17 Acute respiratory failure, extubated. Dense left hemiparesis. Neurogenic dysphagia, keeps pulling out his Dobhoff Plan I left a message with the patient's daughter to discuss possible PEG Get the G.I. consult started No need for prophylactic anticonvulsants Followup CT scans per neurosurgery SNU Subjective None Objective Vital Signs Date Time Temp Pulse Resp B/P (MAP) Pulse Ox O2 Delivery O2 Flow Rate FiO2 02/27/20 08:00 Room Air 02/27/20 07:58 96 02/27/20 07:16 97.9 102 18 131/84 (100) 97.9 02/26/20 20:00 3.0 Intake and Output 02/27/20 07:00 Intake Total 3460 ml Output Total 1500 ml Balance 1960 ml Intake Oral 0 ml IV Total 1900 ml Other 1560 ml Output Urine Total 1500 ml PHYSICAL EXAM Alert, speech much clearer, knows he is in the hospital, follows some commands. PERRL. EOMI. CN: no focal findings. Muscle tone: increased on left Muscle strength: Left hemiparesis DTR: 2+ Plantar reflex: extensor on the left Gait: not examined in bed. Sensory exam: no abnormal findings. No cerebellar signs elicited. Review of Relevant I have reviewed the following items faraz (where applicable) has been applied. Labs Laboratory Tests Test 02/25/20 11:53 02/25/20 19:32 02/26/20 00:26 02/26/20 03:20 Glucose (Fingerstick) 248 mg/dL (70-99) 256 mg/dL (70-99) 187 mg/dL (70-99) Sodium Level 157 mmol/L (136-145) Potassium Level 3.5 mmol/L (3.5-5.1) Chloride Level 119 mmol/L (98-107) Carbon Dioxide Level 26 mmol/L (21-32) Anion Gap 12 (6-14) Blood Urea Nitrogen 37 mg/dL (8-26) Creatinine 1.0 mg/dL (0.7-1.3) Estimated GFR (Cockcroft-Gault) 75.2 Glucose Level 218 mg/dL (70-99) Calcium Level 8.8 mg/dL (8.5-10.1) Test 02/26/20 07:03 02/26/20 11:57 02/26/20 18:58 02/27/20 00:53 Glucose (Fingerstick) 240 mg/dL (70-99) 244 mg/dL (70-99) 244 mg/dL (70-99) 253 mg/dL (70-99) Test 02/27/20 05:00 02/27/20 05:58 White Blood Count 22.0 x10^3/uL (4.0-11.0) Red Blood Count 4.76 x10^6/uL (4.30-5.70) Hemoglobin 14.4 g/dL (13.0-17.5) Hematocrit 43.4 % (39.0-53.0) Mean Corpuscular Volume 91 fL (79-100) Mean Corpuscular Hemoglobin 30 pg (25-35) Mean Corpuscular Hemoglobin Concent 33 g/dL (31-37) Red Cell Distribution Width 14.4 % (11.5-14.5) Platelet Count 117 x10^3/uL (140-400) Neutrophils (%) (Auto) 89 % (31-73) Lymphocytes (%) (Auto) 5 % (24-48) Monocytes (%) (Auto) 5 % (0-9) Eosinophils (%) (Auto) 0 % (0-3) Basophils (%) (Auto) 0 % (0-3) Neutrophils # (Auto) 19.6 x10^3/uL (1.8-7.7) Lymphocytes # (Auto) 1.2 x10^3/uL (1.0-4.8) Monocytes # (Auto) 1.1 x10^3/uL (0.0-1.1) Eosinophils # (Auto) 0.0 x10^3/uL (0.0-0.7) Basophils # (Auto) 0.1 x10^3/uL (0.0-0.2) Sodium Level 150 mmol/L (136-145) Potassium Level 4.1 mmol/L (3.5-5.1) Chloride Level 115 mmol/L (98-107) Carbon Dioxide Level 27 mmol/L (21-32) Anion Gap 8 (6-14) Blood Urea Nitrogen 30 mg/dL (8-26) Creatinine 0.9 mg/dL (0.7-1.3) Estimated GFR (Cockcroft-Gault) 85.0 Glucose Level 264 mg/dL (70-99) Calcium Level 8.7 mg/dL (8.5-10.1) Glucose (Fingerstick) 217 mg/dL (70-99) Laboratory Tests Test 02/26/20 11:57 02/26/20 18:58 02/27/20 00:53 02/27/20 05:00 Glucose (Fingerstick) 244 mg/dL (70-99) 244 mg/dL (70-99) 253 mg/dL (70-99) White Blood Count 22.0 x10^3/uL (4.0-11.0) Red Blood Count 4.76 x10^6/uL (4.30-5.70) Hemoglobin 14.4 g/dL (13.0-17.5) Hematocrit 43.4 % (39.0-53.0) Mean Corpuscular Volume 91 fL (79-100) Mean Corpuscular Hemoglobin 30 pg (25-35) Mean Corpuscular Hemoglobin Concent 33 g/dL (31-37) Red Cell Distribution Width 14.4 % (11.5-14.5) Platelet Count 117 x10^3/uL (140-400) Neutrophils (%) (Auto) 89 % (31-73) Lymphocytes (%) (Auto) 5 % (24-48) Monocytes (%) (Auto) 5 % (0-9) Eosinophils (%) (Auto) 0 % (0-3) Basophils (%) (Auto) 0 % (0-3) Neutrophils # (Auto) 19.6 x10^3/uL (1.8-7.7) Lymphocytes # (Auto) 1.2 x10^3/uL (1.0-4.8) Monocytes # (Auto) 1.1 x10^3/uL (0.0-1.1) Eosinophils # (Auto) 0.0 x10^3/uL (0.0-0.7) Basophils # (Auto) 0.1 x10^3/uL (0.0-0.2) Sodium Level 150 mmol/L (136-145) Potassium Level 4.1 mmol/L (3.5-5.1) Chloride Level 115 mmol/L (98-107) Carbon Dioxide Level 27 mmol/L (21-32) Anion Gap 8 (6-14) Blood Urea Nitrogen 30 mg/dL (8-26) Creatinine 0.9 mg/dL (0.7-1.3) Estimated GFR (Cockcroft-Gault) 85.0 Glucose Level 264 mg/dL (70-99) Calcium Level 8.7 mg/dL (8.5-10.1) Test 02/27/20 05:58 Glucose (Fingerstick) 217 mg/dL (70-99) Medications Current Medications Nicardipine HCl 50 mg/Sodium Chloride 250 ml @ 12.5 mls/hr CONT PRN IV SEE I/O RECORD Last administered on 02/23/20at 09:50; Start 02/14/20 at 03:30; Stop 02/25/20 at 11:54; Status DC Ondansetron HCl (Zofran) 8 mg 1X ONCE IVP Last administered on 02/14/20at 03:48; Start 02/14/20 at 04:00; Stop 02/14/20 at 04:01; Status DC Metoclopramide HCl (Reglan Vial) 10 mg STK-MED ONCE .ROUTE ; Start 02/14/20 at 04:00; Stop 02/14/20 at 04:00; Status DC Diphenhydramine HCl (Benadryl) 50 mg STK-MED ONCE .ROUTE ; Start 02/14/20 at 04:02; Stop 02/14/20 at 04:02; Status DC Hydromorphone HCl (Dilaudid) 2 mg STK-MED ONCE .ROUTE ; Start 02/14/20 at 04:02; Stop 02/14/20 at 04:03; Status DC Lidocaine HCl (Lidocaine 1% 20ml Vial) 20 ml STK-MED ONCE .ROUTE ; Start 02/14/20 at 04:11; Stop 02/14/20 at 04:12; Status DC Ondansetron HCl (Zofran) 4 mg PRN Q8HRS PRN IV NAUSEA/VOMITING 1ST CHOICE; Start 02/14/20 at 04:45; Stop 02/15/20 at 04:44; Status DC Morphine Sulfate (Morphine Sulfate) 4 mg PRN Q2HR PRN IV SEVERE PAIN 7-10; Start 02/14/20 at 04:45; Stop 02/15/20 at 04:44; Status DC Rocuronium [place] (Zemuron) 100 mg 1X ONCE IV Last administered on 02/14/20at 04:56; Start 02/14/20 at 05:00; Stop 02/14/20 at 05:01; Status DC Etomidate (Amidate) 20 mg 1X ONCE IV Last administered on 02/14/20at 04:56; Start 02/14/20 at 05:00; Stop 02/14/20 at 05:01; Status DC Fentanyl Citrate (Fentanyl 2ml Vial) 100 mcg 1X ONCE IVP Last administered on 02/14/20at 04:55; Start 02/14/20 at 05:00; Stop 02/14/20 at 05:01; Status DC Propofol (Diprivan) 200 mg STK-MED ONCE IV ; Start 02/14/20 at 05:02; Stop 02/14/20 at 05:03; Status DC Propofol 50 ml @ As Directed STK-MED ONCE IV ; Start 02/14/20 at 05:03; Stop 02/14/20 at 05:03; Status DC Propofol (Diprivan) 200 mg 1X ONCE IV ; Start 02/14/20 at 05:30; Stop 02/14/20 at 05:31; Status DC Vancomycin HCl 250 ml @ 250 mls/hr PREOP PRN PRN IV PREOP Last administered on 02/14/20at 06:48; Start 02/14/20 at 06:00; Stop 02/15/20 at 05:59; Status DC Propofol 100 ml @ 0 mls/hr CONT PRN IV SEE I/O RECORD Last administered on 02/14/20at 11:30; Start 02/14/20 at 06:30; Stop 02/25/20 at 11:51; Status DC Fentanyl Citrate (Fentanyl 2ml Vial) 50 mcg 1X ONCE IVP Last administered on 02/14/20at 06:48; Start 02/14/20 at 07:00; Stop 02/14/20 at 07:01; Status DC Lidocaine HCl (Xylocaine-Mpf 1% 2ml Vial) 2 ml STK-MED ONCE .ROUTE ; Start 01/17 03/07 at 06:43; Stop 02/14/20 at 06:43; Status DC Fentanyl Citrate (Fentanyl 2ml Vial) 50 mcg 1X ONCE IVP Last administered on 02/14/20at 07:23; Start 02/14/20 at 07:30; Stop 02/14/20 at 07:31; Status DC Fentanyl Citrate 30 ml @ 2.5 mls/hr CONT PRN IV SEE PROTOCOL Last administered on 02/15/20at 09:14; Start 02/14/20 at 07:30; Stop 02/25/20 at 11:51; Status DC Fentanyl Citrate (Fentanyl 2ml Vial) 25 mcg PRN Q1HR PRN IV SEE COMMENTS; Start 02/14/20 at 07:30; Stop 02/15/20 at 18:51; Status DC Fentanyl Citrate (Fentanyl 2ml Vial) 50 mcg PRN Q1HR PRN IV SEE COMMENTS; Start 02/14/20 at 07:30; Stop 02/15/20 at 18:51; Status DC Famotidine (Pepcid Vial) 20 mg BID IVP ; Start 02/14/20 at 21:00; Stop 02/14/20 at 16:18; Status DC Potassium Chloride/Dextrose/ Sod Cl 1,000 ml @ 50 mls/hr Q20H IV Last administered on 02/24/20at 00:16; Start 02/14/20 at 11:30; Stop 02/24/20 at 12:27; Status DC Pantoprazole Sodium (PROTONIX VIAL for IV PUSH) 40 mg DAILYAC IVP Last administered on 02/27/20at 08:17; Start 02/15/20 at 07:30 Vancomycin HCl 1 gm/Sodium Chloride 250 ml @ 250 mls/hr Q12H IV Last administered on 02/17/20at 04:35; Start 02/15/20 at 17:00; Stop 02/17/20 at 07:34; Status DC Vancomycin HCl (Vanco Per Pharmacy) 1 each PRN DAILY PRN MC SEE COMMENTS; Start 02/15/20 at 16:15; Stop 02/17/20 at 07:35; Status DC Fentanyl Citrate (Fentanyl 2ml Vial) 25 mcg Q1HR ONCE IV Last administered on 02/15/20at 18:54; Start 02/15/20 at 19:00; Stop 02/15/20 at 19:01; Status DC Fentanyl Citrate (Fentanyl 2ml Vial) 25 mcg PRN Q1HR PRN IVP SEVERE PAIN 7-10 Last administered on 02/24/20at 04:26; Start 02/15/20 at 22:30 Cefazolin Sodium/ Dextrose (Ancef 2gm Premix) 2 gm STK-MED ONCE IV ; Start 02/14/20 at 07:00; Stop 02/16/20 at 06:46; Status DC Dexamethasone Sodium Phosphate (Decadron) 4 mg Q6HRS IVP Last administered on 02/22/20at 12:04; Start 02/16/20 at 12:00; Stop 02/22/20 at 15:31; Status DC Dexamethasone Sodium Phosphate (Decadron) 4 mg 1X ONCE IVP Last administered on 02/16/20at 07:57; Start 02/16/20 at 08:00; Stop 02/16/20 at 08:01; Status DC Dexmedetomidine HCl 400 mcg/ Sodium Chloride 100 ml @ 0 mls/hr CONT PRN IV PER PROTOCOL Last administered on 02/21/20at 23:32; Start 02/16/20 at 08:30; Stop 02/25/20 at 11:51; Status DC Sodium Chloride 500 ml @ 500 mls/hr 1X PRN PRN IV SEE COMMENTS; Start 02/16/20 at 08:30 Atropine Sulfate (ATROPINE 0.5mg SYRINGE) 0.5 mg PRN Q5MIN PRN IV SEE COMMENTS; Start 02/16/20 at 08:30 Levofloxacin/ Dextrose 100 ml @ 100 mls/hr Q24H IV Last administered on 02/22/20at 12:03; Start 02/16/20 at 12:00; Stop 02/22/20 at 13:37; Status DC Albuterol/ Ipratropium (Duoneb) 3 ml RTQID NEB Last administered on 02/27/20at 07:58; Start 02/16/20 at 12:00 Lorazepam (Ativan Inj) 1 mg PRN Q2HRS PRN IVP ANXIETY / AGITATION Last administered on 02/27/20at 01:00; Start 02/18/20 at 09:00 Metoprolol Tartrate (Lopressor Vial) 5 mg Q6HRS IVP Last administered on 02/27/20at 06:14; Start 02/22/20 at 10:30 Hydralazine HCl (Apresoline Inj) 10 mg Q4HRS IVP Last administered on 02/27/20at 05:52; Start 02/23/20 at 10:15 Amino Acids/ Glycerin/ Electrolytes 1,000 ml @ 80 mls/hr [id number] IV Last administered on 02/26/20at 08:32; Start 02/24/20 at 08:00; Stop 02/26/20 at 17:07; Status DC Potassium Chloride/Dextrose/ Sod Cl 1,000 ml @ 50 mls/hr Q20H IV Last administered on 02/25/20at 09:12; Start 02/25/20 at 09:00; Stop 02/25/20 at 11:13; Status DC Insulin Human Lispro (HumaLOG) 0-5 UNITS Q6HRS SQ Last administered on 02/27/20at 01:07; Start 02/25/20 at 12:00 Dextrose (Dextrose 50%-Water Syringe) 12.5 gm PRN Q15MIN PRN IV SEE COMMENTS; Start 02/25/20 at 08:45 Dextrose 1,000 ml @ 50 mls/hr Q20H IV Last administered on 02/26/20at 08:32; Start 02/25/20 at 11:15 Dextrose/Sodium Chloride 1,000 ml @ 75 mls/hr 1X ONCE IV Last administered on 02/26/20at 20:21; Start 02/26/20 at 17:15; Stop 02/27/20 at 06:34; Status DC Amino Acids/ Glycerin/ Electrolytes 1,000 ml @ 80 mls/hr [id number] IV Last administered on 02/27/20at 05:53; Start 02/26/20 at 17:15 Active Scripts Active Reported Flomax (Tamsulosin Hcl) 0.4 Mg Cap.er.24h 1 Cap PO DAILY Vitals/I & O Vital Sign - Last 24 Hours 02/26/20 02/26/20 02/26/20 02/26/20 11:00 12:07 12:31 13:27 Temp 98.7 98.7 Pulse 96 98 81 Resp 22 B/P (MAP) 144/94 (111) 141/88 139/82 Pulse Ox 100 97 O2 Delivery Room Air Room Air 02/26/20 02/26/20 02/26/20 02/26/20 15:00 16:00 17:39 18:48 Temp 98.5 98.5 Pulse 97 77 99 Resp 22 B/P (MAP) 120/82 (95) 138/81 129/81 Pulse Ox 97 O2 Delivery Room Air Room Air 02/26/20 02/26/20 02/26/20 02/26/20 19:15 20:00 20:16 20:23 Temp 98.5 98.5 Pulse 99 99 Resp 20 B/P (MAP) 129/81 (97) 129/81 Pulse Ox 98 96 O2 Delivery Room Air Room Air Room Air O2 Flow Rate 3.0 02/26/20 02/27/20 02/27/20 02/27/20 22:08 00:57 00:58 02:20 Temp 98.1 98.4 98.1 98.4 Pulse 84 84 84 74 Resp 18 18 B/P (MAP) 149/79 (102) 149/79 149/79 110/64 (79) Pulse Ox 97 94 O2 Delivery Room Air Room Air 02/27/20 02/27/20 02/27/20 02/27/20 05:52 06:14 07:16 07:58 Temp 97.9 97.9 Pulse 74 74 102 Resp 18 B/P (MAP) 110/64 110/64 131/84 (100) Pulse Ox 95 96 O2 Delivery Room Air Room Air 02/27/20 08:00 O2 Delivery Room Air Intake and Output 02/26/20 02/26/20 02/27/20 15:00 23:00 07:00 Intake Total 1900 ml 0 ml 1560 ml Output Total 750 ml 750 ml Balance 1900 ml -750 ml 810 ml Justicifation of Admission Dx: Justifications for Admission: Justification of Admission Dx: Yes Acute Hemorrhagic Stroke: Acute Hemorrhagic Stroke TEE RFANCIS MD Feb 27, 2020 09:42
--- NOTE | 2020-02-27 10:09 | PDOC ---
PROGRESS NOTES Date of Service: DATE: 02/27/20 TIME: 10:07 Chief Complaint Chief Complaint Intraparenchymal hemorrhage of brain (thalamic hemorrhage with intraventricular rupture) Acute intraparenchymal hematoma centered within the right thalamus with a volume of approximately 14 cc. Intraventricular extension of hemorrhage filling much of the right lateral ventricle and extending downwards through the fourth ventricle.hematoma and associated edema exert mass effect on the foramen of Prieto and a portion of the third ventricle. dilatation of the right lateral ventricle temporal horn developing hydrocephalus. 02/13 ctRight frontal approach ventriculostomy . Stable ventricular configurati on. Stable right basal ganglia acute intraparenchymal hemorrhage with intraventricular extension. Mass effect with sulcal effacement and increased suprasellar cistern effacement. Acute hypoxic resp failure Prior old stroke Hyperlipidemia Tobacco abuse Dense left hemiparesis Hypernatremia Plan: will restart 1/2 NS contnue procalamine will try to have ST reeval now that patient seems more awake Continue with supportive measures Patient will certainly require placement patient stable for transfer to the floor failed swallow, he may benefit from a reassessment patient would most likely not do well with dobhoff tube sice he would most likely dislodged it due to the involuntary movements he has, will follow on ST abner History of Present Illness History of Present Illness 02/27/2020 Patient unfortunately will require PEG tube We will request consent from next of kin Once we get consents will place a consult for GI No new events reported overnight 02/26/2020 Patient seems to be about the same, he is restless and requires mittens so he does nnot pull on lines and dobhoff tube He managed to disloge his tube for the 2nd time today. We will reassess in the am with the family and address goals of therapy will start Procalamine again in the mean time 02/25/2020 No acute events reported overnight, case discussed with nursing staff patient in no acute distress no complaints during my visit more awake today, will request reeval by ST 02/24/2020 Patient with no acute events reported overnight, patient failed swallow study will start procalamine reeval in the next few days Off Cardene drip transfer to floor when bed available 02/23/2020 Patient now extubated. Patient continues to do fairly well Still left-sided hemiparesis Laboratory data reviewed We will try to wean off Cardene drip Follow mortgage consultant recommendations 02/22/2020 Patient seen and examined in the ICU He remains about the same Can barely say 1 word Very sedated and obtunded Has mitts on for patient safety He is on a Cardene drip Has Precedex Also has IV Levaquin Chart reviewed Discussed with RN 02/21/2020 Patient seen and examined in the ICU He is about the same as yesterday makes eye contact tries to speak but I cannot understand him too much Discussed with RN Chart reviewed 02/20/2020 Patient seen and examined in the ICU He is a little more alert he made eye contact with me I asked him if he could hear me he clearly stated yes Discussed with RN Discussed with keycase assembler Chart reviewed next Discussed with respiratory therapy 02/19/2020 Patient seen and examined in the ICU Yesterday pulled out his THERMODYNAMIC PHYSICIST pressure monitor and we still have it out for now The CAT scan repeat of the head yesterday showed decrease size of the bleed I discussed the case with keycase assembler I reviewed the chart Discussed with RN He remains critically ill 02/18/2020 Patient seen and examined in the ICU He has mitts on but somehow was able to squeeze onto his THERMODYNAMIC PHYSICIST monitor tube and pulled out I discussed case with the keycase assembler and RN Chart reviewed 02/17/2020 Patient seen and examined in the ICU He is on BiPAP His daughter is present Discussed with RN Discussed with case management Chart reviewed Vitals Vitals Vital Signs Date Time Temp Pulse Resp B/P (MAP) Pulse Ox O2 Delivery O2 Flow Rate FiO2 02/27/20 08:00 Room Air 02/27/20 07:58 96 02/27/20 07:16 97.9 102 18 131/84 (100) 97.9 02/26/20 20:00 3.0 Physical Exam Physical Exam General: Other (Makes eye contact tries to talk but I cannot understand) Heart: Regular rate Lungs: Clear Abdomen: Normal bowel sounds Extremities: No cyanosis General: Cooperative, No acute distress Heart: Regular rate Lungs: Crackles Abdomen: Normal bowel sounds, No tenderness Extremities: No clubbing Skin: No rashes Labs LABS Laboratory Tests Test 02/26/20 11:57 02/26/20 18:58 02/27/20 00:53 02/27/20 05:00 Glucose (Fingerstick) 244 mg/dL (70-99) 244 mg/dL (70-99) 253 mg/dL (70-99) White Blood Count 22.0 x10^3/uL (4.0-11.0) Red Blood Count 4.76 x10^6/uL (4.30-5.70) Hemoglobin 14.4 g/dL (13.0-17.5) Hematocrit 43.4 % (39.0-53.0) Mean Corpuscular Volume 91 fL (79-100) Mean Corpuscular Hemoglobin 30 pg (25-35) Mean Corpuscular Hemoglobin Concent 33 g/dL (31-37) Red Cell Distribution Width 14.4 % (11.5-14.5) Platelet Count 117 x10^3/uL (140-400) Neutrophils (%) (Auto) 89 % (31-73) Lymphocytes (%) (Auto) 5 % (24-48) Monocytes (%) (Auto) 5 % (0-9) Eosinophils (%) (Auto) 0 % (0-3) Basophils (%) (Auto) 0 % (0-3) Neutrophils # (Auto) 19.6 x10^3/uL (1.8-7.7) Lymphocytes # (Auto) 1.2 x10^3/uL (1.0-4.8) Monocytes # (Auto) 1.1 x10^3/uL (0.0-1.1) Eosinophils # (Auto) 0.0 x10^3/uL (0.0-0.7) Basophils # (Auto) 0.1 x10^3/uL (0.0-0.2) Sodium Level 150 mmol/L (136-145) Potassium Level 4.1 mmol/L (3.5-5.1) Chloride Level 115 mmol/L (98-107) Carbon Dioxide Level 27 mmol/L (21-32) Anion Gap 8 (6-14) Blood Urea Nitrogen 30 mg/dL (8-26) Creatinine 0.9 mg/dL (0.7-1.3) Estimated GFR (Cockcroft-Gault) 85.0 Glucose Level 264 mg/dL (70-99) Calcium Level 8.7 mg/dL (8.5-10.1) Test 02/27/20 05:58 Glucose (Fingerstick) 217 mg/dL (70-99) Assessment and Plan Assessmemt and Plan Problems Medical Problems: (1) Intraparenchymal hemorrhage of brain Status: Acute Comment Review of Relevant I have reviewed the following items faraz (where applicable) has been applied. Labs Laboratory Tests Test 02/25/20 11:53 02/25/20 19:32 02/26/20 00:26 02/26/20 03:20 Glucose (Fingerstick) 248 mg/dL (70-99) 256 mg/dL (70-99) 187 mg/dL (70-99) Sodium Level 157 mmol/L (136-145) Potassium Level 3.5 mmol/L (3.5-5.1) Chloride Level 119 mmol/L (98-107) Carbon Dioxide Level 26 mmol/L (21-32) Anion Gap 12 (6-14) Blood Urea Nitrogen 37 mg/dL (8-26) Creatinine 1.0 mg/dL (0.7-1.3) Estimated GFR (Cockcroft-Gault) 75.2 Glucose Level 218 mg/dL (70-99) Calcium Level 8.8 mg/dL (8.5-10.1) Test 02/26/20 07:03 02/26/20 11:57 02/26/20 18:58 02/27/20 00:53 Glucose (Fingerstick) 240 mg/dL (70-99) 244 mg/dL (70-99) 244 mg/dL (70-99) 253 mg/dL (70-99) Test 02/27/20 05:00 02/27/20 05:58 White Blood Count 22.0 x10^3/uL (4.0-11.0) Red Blood Count 4.76 x10^6/uL (4.30-5.70) Hemoglobin 14.4 g/dL (13.0-17.5) Hematocrit 43.4 % (39.0-53.0) Mean Corpuscular Volume 91 fL (79-100) Mean Corpuscular Hemoglobin 30 pg (25-35) Mean Corpuscular Hemoglobin Concent 33 g/dL (31-37) Red Cell Distribution Width 14.4 % (11.5-14.5) Platelet Count 117 x10^3/uL (140-400) Neutrophils (%) (Auto) 89 % (31-73) Lymphocytes (%) (Auto) 5 % (24-48) Monocytes (%) (Auto) 5 % (0-9) Eosinophils (%) (Auto) 0 % (0-3) Basophils (%) (Auto) 0 % (0-3) Neutrophils # (Auto) 19.6 x10^3/uL (1.8-7.7) Lymphocytes # (Auto) 1.2 x10^3/uL (1.0-4.8) Monocytes # (Auto) 1.1 x10^3/uL (0.0-1.1) Eosinophils # (Auto) 0.0 x10^3/uL (0.0-0.7) Basophils # (Auto) 0.1 x10^3/uL (0.0-0.2) Sodium Level 150 mmol/L (136-145) Potassium Level 4.1 mmol/L (3.5-5.1) Chloride Level 115 mmol/L (98-107) Carbon Dioxide Level 27 mmol/L (21-32) Anion Gap 8 (6-14) Blood Urea Nitrogen 30 mg/dL (8-26) Creatinine 0.9 mg/dL (0.7-1.3) Estimated GFR (Cockcroft-Gault) 85.0 Glucose Level 264 mg/dL (70-99) Calcium Level 8.7 mg/dL (8.5-10.1) Glucose (Fingerstick) 217 mg/dL (70-99) Laboratory Tests Test 02/26/20 11:57 02/26/20 18:58 02/27/20 00:53 02/27/20 05:00 Glucose (Fingerstick) 244 mg/dL (70-99) 244 mg/dL (70-99) 253 mg/dL (70-99) White Blood Count 22.0 x10^3/uL (4.0-11.0) Red Blood Count 4.76 x10^6/uL (4.30-5.70) Hemoglobin 14.4 g/dL (13.0-17.5) Hematocrit 43.4 % (39.0-53.0) Mean Corpuscular Volume 91 fL (79-100) Mean Corpuscular Hemoglobin 30 pg (25-35) Mean Corpuscular Hemoglobin Concent 33 g/dL (31-37) Red Cell Distribution Width 14.4 % (11.5-14.5) Platelet Count 117 x10^3/uL (140-400) Neutrophils (%) (Auto) 89 % (31-73) Lymphocytes (%) (Auto) 5 % (24-48) Monocytes (%) (Auto) 5 % (0-9) Eosinophils (%) (Auto) 0 % (0-3) Basophils (%) (Auto) 0 % (0-3) Neutrophils # (Auto) 19.6 x10^3/uL (1.8-7.7) Lymphocytes # (Auto) 1.2 x10^3/uL (1.0-4.8) Monocytes # (Auto) 1.1 x10^3/uL (0.0-1.1) Eosinophils # (Auto) 0.0 x10^3/uL (0.0-0.7) Basophils # (Auto) 0.1 x10^3/uL (0.0-0.2) Sodium Level 150 mmol/L (136-145) Potassium Level 4.1 mmol/L (3.5-5.1) Chloride Level 115 mmol/L (98-107) Carbon Dioxide Level 27 mmol/L (21-32) Anion Gap 8 (6-14) Blood Urea Nitrogen 30 mg/dL (8-26) Creatinine 0.9 mg/dL (0.7-1.3) Estimated GFR (Cockcroft-Gault) 85.0 Glucose Level 264 mg/dL (70-99) Calcium Level 8.7 mg/dL (8.5-10.1) Test 02/27/20 05:58 Glucose (Fingerstick) 217 mg/dL (70-99) Medications Current Medications Nicardipine HCl 50 mg/Sodium Chloride 250 ml @ 12.5 mls/hr CONT PRN IV SEE I/O RECORD Last administered on 02/23/20at 09:50; Start 02/14/20 at 03:30; Stop 02/25/20 at 11:54; Status DC Ondansetron HCl (Zofran) 8 mg 1X ONCE IVP Last administered on 02/14/20at 03:48; Start 02/14/20 at 04:00; Stop 02/14/20 at 04:01; Status DC Metoclopramide HCl (Reglan Vial) 10 mg STK-MED ONCE .ROUTE ; Start 02/14/20 at 04:00; Stop 02/14/20 at 04:00; Status DC Diphenhydramine HCl (Benadryl) 50 mg STK-MED ONCE .ROUTE ; Start 02/14/20 at 04:02; Stop 02/14/20 at 04:02; Status DC Hydromorphone HCl (Dilaudid) 2 mg STK-MED ONCE .ROUTE ; Start 02/14/20 at 04:02; Stop 02/14/20 at 04:03; Status DC Lidocaine HCl (Lidocaine 1% 20ml Vial) 20 ml STK-MED ONCE .ROUTE ; Start 02/14/20 at 04:11; Stop 02/14/20 at 04:12; Status DC Ondansetron HCl (Zofran) 4 mg PRN Q8HRS PRN IV NAUSEA/VOMITING 1ST CHOICE; Start 02/14/20 at 04:45; Stop 02/15/20 at 04:44; Status DC Morphine Sulfate (Morphine Sulfate) 4 mg PRN Q2HR PRN IV SEVERE PAIN 7-10; Start 02/14/20 at 04:45; Stop 02/15/20 at 04:44; Status DC Rocuronium [place] (Zemuron) 100 mg 1X ONCE IV Last administered on 02/14/20at 04:56; Start 02/14/20 at 05:00; Stop 02/14/20 at 05:01; Status DC Etomidate (Amidate) 20 mg 1X ONCE IV Last administered on 02/14/20at 04:56; Start 02/14/20 at 05:00; Stop 02/14/20 at 05:01; Status DC Fentanyl Citrate (Fentanyl 2ml Vial) 100 mcg 1X ONCE IVP Last administered on 02/14/20at 04:55; Start 02/14/20 at 05:00; Stop 02/14/20 at 05:01; Status DC Propofol (Diprivan) 200 mg STK-MED ONCE IV ; Start 02/14/20 at 05:02; Stop 02/14/20 at 05:03; Status DC Propofol 50 ml @ As Directed STK-MED ONCE IV ; Start 02/14/20 at 05:03; Stop 02/14/20 at 05:03; Status DC Propofol (Diprivan) 200 mg 1X ONCE IV ; Start 02/14/20 at 05:30; Stop 02/14/20 at 05:31; Status DC Vancomycin HCl 250 ml @ 250 mls/hr PREOP PRN PRN IV PREOP Last administered on 02/14/20at 06:48; Start 02/14/20 at 06:00; Stop 02/15/20 at 05:59; Status DC Propofol 100 ml @ 0 mls/hr CONT PRN IV SEE I/O RECORD Last administered on 02/14/20at 11:30; Start 02/14/20 at 06:30; Stop 02/25/20 at 11:51; Status DC Fentanyl Citrate (Fentanyl 2ml Vial) 50 mcg 1X ONCE IVP Last administered on 02/14/20at 06:48; Start 02/14/20 at 07:00; Stop 02/14/20 at 07:01; Status DC Lidocaine HCl (Xylocaine-Mpf 1% 2ml Vial) 2 ml STK-MED ONCE .ROUTE ; Start 02/14/20 at 06:43; Stop 02/14/20 at 06:43; Status DC Fentanyl Citrate (Fentanyl 2ml Vial) 50 mcg 1X ONCE IVP Last administered on 02/14/20at 07:23; Start 02/14/20 at 07:30; Stop 02/14/20 at 07:31; Status DC Fentanyl Citrate 30 ml @ 2.5 mls/hr CONT PRN IV SEE PROTOCOL Last administered on 02/15/20at 09:14; Start 02/14/20 at 07:30; Stop 02/25/20 at 11:51; Status DC Fentanyl Citrate (Fentanyl 2ml Vial) 25 mcg PRN Q1HR PRN IV SEE COMMENTS; Start 02/14/20 at 07:30; Stop 02/15/20 at 18:51; Status DC Fentanyl Citrate (Fentanyl 2ml Vial) 50 mcg PRN Q1HR PRN IV SEE COMMENTS; Start 02/14/20 at 07:30; Stop 02/15/20 at 18:51; Status DC Famotidine (Pepcid Vial) 20 mg BID IVP ; Start 02/14/20 at 21:00; Stop 02/14/20 at 16:18; Status DC Potassium Chloride/Dextrose/ Sod Cl 1,000 ml @ 50 mls/hr Q20H IV Last administered on 02/24/20at 00:16; Start 02/14/20 at 11:30; Stop 02/24/20 at 12:27; Status DC Pantoprazole Sodium (PROTONIX VIAL for IV PUSH) 40 mg DAILYAC IVP Last administered on 02/27/20at 08:17; Start 02/15/20 at 07:30 Vancomycin HCl 1 gm/Sodium Chloride 250 ml @ 250 mls/hr Q12H IV Last administered on 02/17/20at 04:35; Start 02/15/20 at 17:00; Stop 02/17/20 at 07:34; Status DC Vancomycin HCl (Vanco Per Pharmacy) 1 each PRN DAILY PRN MC SEE COMMENTS; Start 02/15/20 at 16:15; Stop 02/17/20 at 07:35; Status DC Fentanyl Citrate (Fentanyl 2ml Vial) 25 mcg Q1HR ONCE IV Last administered on 02/15/20at 18:54; Start 02/15/20 at 19:00; Stop 02/15/20 at 19:01; Status DC Fentanyl Citrate (Fentanyl 2ml Vial) 25 mcg PRN Q1HR PRN IVP SEVERE PAIN 7-10 Last administered on 02/24/20at 04:26; Start 02/15/20 at 22:30 Cefazolin Sodium/ Dextrose (Ancef 2gm Premix) 2 gm STK-MED ONCE IV ; Start 02/14/20 at 07:00; Stop 02/16/20 at 06:46; Status DC Dexamethasone Sodium Phosphate (Decadron) 4 mg Q6HRS IVP Last administered on 02/22/20at 12:04; Start 02/16/20 at 12:00; Stop 02/22/20 at 15:31; Status DC Dexamethasone Sodium Phosphate (Decadron) 4 mg 1X ONCE IVP Last administered on 02/16/20at 07:57; Start 02/16/20 at 08:00; Stop 02/16/20 at 08:01; Status DC Dexmedetomidine HCl 400 mcg/ Sodium Chloride 100 ml @ 0 mls/hr CONT PRN IV PER PROTOCOL Last administered on 02/21/20at 23:32; Start 02/16/20 at 08:30; Stop 02/25/20 at 11:51; Status DC Sodium Chloride 500 ml @ 500 mls/hr 1X PRN PRN IV SEE COMMENTS; Start 02/16/20 at 08:30 Atropine Sulfate (ATROPINE 0.5mg SYRINGE) 0.5 mg PRN Q5MIN PRN IV SEE COMMENTS; Start 02/16/20 at 08:30 Levofloxacin/ Dextrose 100 ml @ 100 mls/hr Q24H IV Last administered on 02/22/20at 12:03; Start 02/16/20 at 12:00; Stop 02/22/20 at 13:37; Status DC Albuterol/ Ipratropium (Duoneb) 3 ml RTQID NEB Last administered on 02/27/20at 07:58; Start 02/16/20 at 12:00 Lorazepam (Ativan Inj) 1 mg PRN Q2HRS PRN IVP ANXIETY / AGITATION Last administered on 02/27/20at 01:00; Start 02/18/20 at 09:00 Metoprolol Tartrate (Lopressor Vial) 5 mg Q6HRS IVP Last administered on 02/27/20at 06:14; Start 02/22/20 at 10:30 Hydralazine HCl (Apresoline Inj) 10 mg Q4HRS IVP Last administered on 02/27/20at 05:52; Start 02/23/20 at 10:15 Amino Acids/ Glycerin/ Electrolytes 1,000 ml @ 80 mls/hr [id number] IV Last administered on 02/26/20at 08:32; Start 02/24/20 at 08:00; Stop 02/26/20 at 17:07; Status DC Potassium Chloride/Dextrose/ Sod Cl 1,000 ml @ 50 mls/hr Q20H IV Last administered on 02/25/20at 09:12; Start 02/25/20 at 09:00; Stop 02/25/20 at 11:13; Status DC Insulin Human Lispro (HumaLOG) 0-5 UNITS Q6HRS SQ Last administered on 02/27/20at 01:07; Start 02/25/20 at 12:00 Dextrose (Dextrose 50%-Water Syringe) 12.5 gm PRN Q15MIN PRN IV SEE COMMENTS; Start 02/25/20 at 08:45 Dextrose 1,000 ml @ 50 mls/hr Q20H IV Last administered on 02/26/20at 08:32; Start 02/25/20 at 11:15 Dextrose/Sodium Chloride 1,000 ml @ 75 mls/hr 1X ONCE IV Last administered on 9/10/20at 20:21; Start 02/26/20 at 17:15; Stop 02/27/20 at 06:34; Status DC Amino Acids/ Glycerin/ Electrolytes 1,000 ml @ 80 mls/hr [id number] IV Last administered on 02/27/20at 05:53; Start 02/26/20 at 17:15 Active Scripts Active Reported Flomax (Tamsulosin Hcl) 0.4 Mg Cap.er.24h 1 Cap PO DAILY Vitals/I & O Vital Sign - Last 24 Hours 02/26/20 02/26/20 02/26/20 02/26/20 11:00 12:07 12:31 13:27 Temp 98.7 98.7 Pulse 96 98 81 Resp 22 B/P (MAP) 144/94 (111) 141/88 139/82 Pulse Ox 100 97 O2 Delivery Room Air Room Air 02/26/20 02/26/20 02/26/20 02/26/20 15:00 16:00 17:39 18:48 Temp 98.5 98.5 Pulse 97 77 99 Resp 22 B/P (MAP) 120/82 (95) 138/81 129/81 Pulse Ox 97 O2 Delivery Room Air Room Air 02/26/20 02/26/20 02/26/20 02/26/20 19:15 20:00 20:16 20:23 Temp 98.5 98.5 Pulse 99 99 Resp 20 B/P (MAP) 129/81 (97) 129/81 Pulse Ox 98 96 O2 Delivery Room Air Room Air Room Air O2 Flow Rate 3.0 02/26/20 02/27/20 02/27/20 02/27/20 22:08 00:57 00:58 02:20 Temp 98.1 98.4 98.1 98.4 Pulse 84 84 84 74 Resp 18 18 B/P (MAP) 149/79 (102) 149/79 149/79 110/64 (79) Pulse Ox 97 94 O2 Delivery Room Air Room Air 02/27/20 02/27/20 02/27/20 02/27/20 05:52 06:14 07:16 07:58 Temp 97.9 97.9 Pulse 74 74 102 Resp 18 B/P (MAP) 110/64 110/64 131/84 (100) Pulse Ox 95 96 O2 Delivery Room Air Room Air 02/27/20 08:00 O2 Delivery Room Air Intake and Output 02/26/20 02/26/20 02/27/20 15:00 23:00 07:00 Intake Total 1900 ml 0 ml 1560 ml Output Total 750 ml 750 ml Balance 1900 ml -750 ml 810 ml Justicifation of Admission Dx: Justifications for Admission: Justification of Admission Dx: Yes Acute Hemorrhagic Stroke: Acute Hemorrhagic Stroke JADE CLAROS MD Feb 27, 2020 10:09
[2020-02-27 10:28] VITALS: BP 145/76
--- NOTE | 2020-02-27 11:36 | PDOC2 ---
GI CONSULT Date of Service: DATE: 02/27/20 TIME: 11:35 Reason For Consult: possible PEG HPI: HPI: 64 y/o male admitted on 02/14/20 w/ headache and weakness, found w/ intracerebral and intraventricular hemorrhage, s/p right frontal ventriculostomy placement, required brief intubation. Has been NPO w/ abnormal swallow evaluation. Other notes indicate has pulled out Dobhoff. Hospitalist, neurologist, and nurse have discussed (or left messages with) family re: possible PEG placement. PMH: PMH: CVA, HTN, HLD, BPH hernia repair Social History: Smoke: <1 pack per day ALCOHOL: none Drugs: None ROS: unable to obtain Vitals: Vitals: Vital Signs Date Time Temp Pulse Resp B/P (MAP) Pulse Ox O2 Delivery O2 Flow Rate FiO2 02/27/20 11:16 96 Room Air 02/27/20 10:28 98.8 101 18 145/76 (99) 98.8 02/26/20 20:00 3.0 Labs: Labs: Laboratory Tests Test 02/26/20 11:57 02/26/20 18:58 02/27/20 00:53 02/27/20 05:00 Glucose (Fingerstick) 244 mg/dL (70-99) 244 mg/dL (70-99) 253 mg/dL (70-99) White Blood Count 22.0 x10^3/uL (4.0-11.0) Red Blood Count 4.76 x10^6/uL (4.30-5.70) Hemoglobin 14.4 g/dL (13.0-17.5) Hematocrit 43.4 % (39.0-53.0) Mean Corpuscular Volume 91 fL (79-100) Mean Corpuscular Hemoglobin 30 pg (25-35) Mean Corpuscular Hemoglobin Concent 33 g/dL (31-37) Red Cell Distribution Width 14.4 % (11.5-14.5) Platelet Count 117 x10^3/uL (140-400) Neutrophils (%) (Auto) 89 % (31-73) Lymphocytes (%) (Auto) 5 % (24-48) Monocytes (%) (Auto) 5 % (0-9) Eosinophils (%) (Auto) 0 % (0-3) Basophils (%) (Auto) 0 % (0-3) Neutrophils # (Auto) 19.6 x10^3/uL (1.8-7.7) Lymphocytes # (Auto) 1.2 x10^3/uL (1.0-4.8) Monocytes # (Auto) 1.1 x10^3/uL (0.0-1.1) Eosinophils # (Auto) 0.0 x10^3/uL (0.0-0.7) Basophils # (Auto) 0.1 x10^3/uL (0.0-0.2) Sodium Level 150 mmol/L (136-145) Potassium Level 4.1 mmol/L (3.5-5.1) Chloride Level 115 mmol/L (98-107) Carbon Dioxide Level 27 mmol/L (21-32) Anion Gap 8 (6-14) Blood Urea Nitrogen 30 mg/dL (8-26) Creatinine 0.9 mg/dL (0.7-1.3) Estimated GFR (Cockcroft-Gault) 85.0 Glucose Level 264 mg/dL (70-99) Calcium Level 8.7 mg/dL (8.5-10.1) Test 02/27/20 05:58 02/27/20 11:30 Glucose (Fingerstick) 217 mg/dL (70-99) 201 mg/dL (70-99) Allergies: Coded Allergies: Penicillins (Verified Allergy, Severe, Rash, 02/14/20) Medications: Current Medications Medications (Trade) Dose Ordered Sig/Fabricio Route PRN Reason Start Time Stop Time Status Last Admin Dose Admin Dextrose/Sodium Chloride 1,000 ml @ 75 mls/hr 1X ONCE IV 02/26/20 17:15 02/27/20 06:34 DC 02/26/20 20:21 Amino Acids/ Glycerin/ Electrolytes 1,000 ml @ 80 mls/hr [id number] IV 02/26/20 17:15 02/27/20 05:53 Imaging: Imaging: Head CT Impression: 1. Evolving decreased right thalamic hemorrhage with decreased intraventricular extension adjacent mass effect. 2. Decreased size of the right lateral ventricle with unchanged hypoattenuation along the right temporal horn. KUB 02/25 IMPRESSION: Placement of a feeding tube as described. CXR 02/24 IMPRESSION: 1. Bibasilar infiltrates persist in the right base, and have mostly resolved on the left. Speech Path 02/24 Pt awake during session, intermittently closes eyes. Dysarthric speech noted but pt indicating 'water' at my entering. Pt stated 'cough' upon request to produce cough; same w/cues to imitate cough. Pt retrieved ice chip from tsp x2. On each trial, pt masticated ice chip and did not produce a pharyngeal swallow. Swallow was absent on each trial with no laryngeal excursion noted. Verbal cues ineffective. IMPRESSIONS: Mod to moderate-severe pharyngeal dysphagia w/ABSENT pharyngeal swallow. Alertness not considered an issue in current results. Given severity of dysphagia and dx, may wish to consider pt and family wishes re: non-oral nutrition as at least intermediate need for same is likely. When pt is able to initiate a po diet, he may still require supplemental nutrition and non-oral meds. RECOMMENDATIONS: NPO meds and nutrition; consider pt/family goals of care and poss long-term non-oral nutrition if c/w same. BLAYNE Mendez. PE: GEN: chronically ill LUNGS: clear HEART: RR ABD: NABS, S/ND/NT EXTREMITY: No edema SKIN: No rashes, no jaundice NEURO/PSYCH: awake, mitten on right hand, left-sided weakness, says "hi" and "no" A/P: A/P: Intracerebral and intraventricular hemorrhage s/p right frontal ventriculostomy Resp failure, hypernatremia - better Dysphagia Leukocytosis COVID negative 02/23, normal INR 02/13 -- Await family decision re: PEG - would need abdominal binder at all times w/ h/o pulling out tubes/lines. MACRINA IZAGUIRRE Feb 27, 2020 11:36
--- NOTE | 2020-02-27 12:15 | NUR ---
SS following up with discharge planning. SS reviewed pt chart and discussed with pt RN. Pt is currently on room air. Pt NPO and pulled dobhoff out. Physicians discussed peg tube placement with family and family still trying to decide whether or not to place peg tube. COVID19 negative. Pt accepted [facility], ; fax [phone], pending insurance authorization. SS will continue to follow for discharge planning.
--- NOTE | 2020-02-27 12:27 | PDOC ---
Renal-Progress Notes Subjective Notes Notes NO NEW COMPLAINTS History of Present Illness Hx of present illness NO CHANGES Vitals Vitals Vital Signs Date Time Temp Pulse Resp B/P (MAP) Pulse Ox O2 Delivery O2 Flow Rate FiO2 02/27/20 11:55 103 145/70 02/27/20 11:16 96 Room Air 02/27/20 10:28 98.8 18 98.8 02/26/20 20:00 3.0 Weight Weight [ ] I.O. Intake and Output Intake and Output 02/27/20 07:00 Intake Total 3460 ml Output Total 1500 ml Balance 1960 ml Intake Oral 0 ml IV Total 1900 ml Other 1560 ml Output Urine Total 1500 ml Labs Labs Laboratory Tests Test 02/26/20 18:58 02/27/20 00:53 02/27/20 05:00 02/27/20 05:58 Glucose (Fingerstick) 244 mg/dL (70-99) 253 mg/dL (70-99) 217 mg/dL (70-99) White Blood Count 22.0 x10^3/uL (4.0-11.0) Red Blood Count 4.76 x10^6/uL (4.30-5.70) Hemoglobin 14.4 g/dL (13.0-17.5) Hematocrit 43.4 % (39.0-53.0) Mean Corpuscular Volume 91 fL (79-100) Mean Corpuscular Hemoglobin 30 pg (25-35) Mean Corpuscular Hemoglobin Concent 33 g/dL (31-37) Red Cell Distribution Width 14.4 % (11.5-14.5) Platelet Count 117 x10^3/uL (140-400) Neutrophils (%) (Auto) 89 % (31-73) Lymphocytes (%) (Auto) 5 % (24-48) Monocytes (%) (Auto) 5 % (0-9) Eosinophils (%) (Auto) 0 % (0-3) Basophils (%) (Auto) 0 % (0-3) Neutrophils # (Auto) 19.6 x10^3/uL (1.8-7.7) Lymphocytes # (Auto) 1.2 x10^3/uL (1.0-4.8) Monocytes # (Auto) 1.1 x10^3/uL (0.0-1.1) Eosinophils # (Auto) 0.0 x10^3/uL (0.0-0.7) Basophils # (Auto) 0.1 x10^3/uL (0.0-0.2) Sodium Level 150 mmol/L (136-145) Potassium Level 4.1 mmol/L (3.5-5.1) Chloride Level 115 mmol/L (98-107) Carbon Dioxide Level 27 mmol/L (21-32) Anion Gap 8 (6-14) Blood Urea Nitrogen 30 mg/dL (8-26) Creatinine 0.9 mg/dL (0.7-1.3) Estimated GFR (Cockcroft-Gault) 85.0 Glucose Level 264 mg/dL (70-99) Calcium Level 8.7 mg/dL (8.5-10.1) Test 02/27/20 11:30 Glucose (Fingerstick) 201 mg/dL (70-99) Review of Systems Constitutional: yes: other (UNABLE TO OBTAIN) Physical Exam General Appearance: no apparent distress Skin: warm Respiratory: bilateral CTA Heart: S1S2 Abdomen: soft, bowel sounds present Genitourinary: bladder flat Extremities: pulses present Neurology: confused, other (sedated) Assessment Assessment IMP SEVERE HYPERNATREMIA-FREE WATER DEFICIT-IMPROVED MILD SASCHA DUE TO EXTRACELLULAR VOLUME DEPLETION-BETTER ICB AND S/P VENTRICULOSTOMY PLAN IMPROVING CONT WITH PPN CONT WITH D5W WILL FOLLOW IZZY JARQUIN MD Feb 27, 2020 12:27
--- NOTE | 2020-02-27 12:49 | RAD ---
CT HEAD WO CONTRAST History: Reason: f/u ICH DO @ 1000 / Spl. Instructions: / History: Comparison: February 222019 Technique: Noncontrast CT imaging was performed of the head. Exposure: One or more of the following individualized dose reduction techniques were utilized for this examination: 1. Automated exposure control 2. Adjustment of the mA and/or kV according to patient size 3. Use of iterative reconstruction technique. Findings: Evolving right thalamic hemorrhage with decreased size of the hematoma measures 3.1 x 2.3 cm compared to 3.2 x 2.8 cm previously there is adjacent edema, unchanged. Decreased adjacent mass effect. Decreased intraventricular hemorrhage. Decreased size of the right lateral ventricle. No new hemorrhage. Decreased hemorrhage along the previous right frontal ventricular catheter tract. Unchanged periventricular hypoattenuation along the right temporal horn. Imaged orbits are unremarkable. Imaged paranasal sinuses and mastoid air cells are clear. No acute calvarial fracture. Impression: 1. Evolving decreased right thalamic hemorrhage with decreased intraventricular extension adjacent mass effect. 2. Decreased size of the right lateral ventricle with unchanged hypoattenuation along the right temporal horn. Electronically signed by: Behzad Whittington DO (02/27/2020 12:46 PM) [id number]
[2020-02-27 14:23] VITALS: BP 105/54
--- NOTE | 2020-02-27 14:51 | NUR ---
SS following up with discharge planning. Insurance authorization received for [facility], ; fax [phone]. [facility] reported that they would contact the floor RN over the weekend when bed was available. SS discussed with physician and pt's RN. SS phoned and faxed updated clinical to [facility]. SS will continue to follow for discharge planning.
--- NOTE | 2020-02-27 16:04 | NUR ---
Patient's children have agreed to go through with PEG tube placement, consent signed by son Jose J & placed in chart. GI notified.
[2020-02-27 19:45] VITALS: BP 122/71
[2020-02-27 23:15] VITALS: BP 131/82
[2020-02-28] MEDS: IV DEXTROSE 5% 1,000 ML IV SCH (00:56)
[2020-02-28 02:24] VITALS: BP 140/75
[2020-02-28] MEDS: hydrALAZINE 20 MG/ML VIAL. IVP SCH ×6 (03:12→23:17)
[2020-02-28 04:21] LABS: CALCIUM 8.2 mg/dL (8.5-10.1); CREATININE 0.7 mg/dL (0.7-1.3); GFR 113.5; POTASSIUM 3.6 mmol/L (3.5-5.1)
[2020-02-28] MEDS: METOPROLOL TARTRATE 5 MG/5 ML VIAL. IVP SCH ×4 (05:20→23:17)
[2020-02-28] MEDS: INSULIN LISPRO 300 UNITS/3 ML VIAL. SQ SCH ×5 (05:20→23:14)
--- NOTE | 2020-02-28 06:36 | PDOC ---
PROGRESS NOTES Date of Service: DATE: 02/28/20 TIME: 06:36 Chief Complaint Chief Complaint Intraparenchymal hemorrhage of brain (thalamic hemorrhage with intraventricular rupture) Acute intraparenchymal hematoma centered within the right thalamus with a volume of approximately 14 cc. Intraventricular extension of hemorrhage filling much of the right lateral ventricle and extending downwards through the fourth ventricle.hematoma and associated edema exert mass effect on the foramen of Prieto and a portion of the third ventricle. dilatation of the right lateral ventricle temporal horn developing hydrocephalus. 02/13 ctRight frontal approach ventriculostomy . Stable ventricular configurati on. Stable right basal ganglia acute intraparenchymal hemorrhage with intraventricular extension. Mass effect with sulcal effacement and increased suprasellar cistern effacement. Acute hypoxic resp failure Prior old stroke Hyperlipidemia Tobacco abuse Dense left hemiparesis Hypernatremia Plan: will restart 1/2 NS contnue procalamine will try to have ST reeval now that patient seems more awake Continue with supportive measures Patient will certainly require placement patient stable for transfer to the floor failed swallow, he may benefit from a reassessment patient would most likely not do well with dobhoff tube sice he would most likely dislodged it due to the involuntary movements he has, will follow on ST abner History of Present Illness History of Present Illness 02/28/2020 PEG tube placement has been scheduled for Sunday Consents signed by family members most likely can [facility] 02/27/2020 Patient unfortunately will require PEG tube We will request consent from next of kin Once we get consents will place a consult for GI No new events reported overnight 02/26/2020 Patient seems to be about the same, he is restless and requires mittens so he does nnot pull on lines and dobhoff tube He managed to disloge his tube for the 2nd time today. We will reassess in the am with the family and address goals of therapy will start Procalamine again in the mean time 02/25/2020 No acute events reported overnight, case discussed with nursing staff patient in no acute distress no complaints during my visit more awake today, will request reeval by ST 02/24/2020 Patient with no acute events reported overnight, patient failed swallow study will start procalamine reeval in the next few days Off Cardene drip transfer to floor when bed available 02/23/2020 Patient now extubated. Patient continues to do fairly well Still left-sided hemiparesis Laboratory data reviewed We will try to wean off Cardene drip Follow compliance consultant recommendations 02/22/2020 Patient seen and examined in the ICU He remains about the same Can barely say 1 word Very sedated and obtunded Has mitts on for patient safety He is on a Cardene drip Has Precedex Also has IV Levaquin Chart reviewed Discussed with RN 02/21/2020 Patient seen and examined in the ICU He is about the same as yesterday makes eye contact tries to speak but I cannot understand him too much Discussed with RN Chart reviewed 02/20/2020 Patient seen and examined in the ICU He is a little more alert he made eye contact with me I asked him if he could hear me he clearly stated yes Discussed with RN Discussed with case maker Chart reviewed next Discussed with respiratory therapy 02/19/2020 Patient seen and examined in the ICU Yesterday pulled out his [employer] pressure monitor and we still have it out for now The CAT scan repeat of the head yesterday showed decrease size of the bleed I discussed the case with case maker I reviewed the chart Discussed with RN He remains critically ill 02/18/2020 Patient seen and examined in the ICU He has mitts on but somehow was able to squeeze onto his [employer] monitor tube and pulled out I discussed case with the case maker and RN Chart reviewed 02/17/2020 Patient seen and examined in the ICU He is on BiPAP His daughter is present Discussed with RN Discussed with case management Chart reviewed Vitals Vitals Vital Signs Date Time Temp Pulse Resp B/P (MAP) Pulse Ox O2 Delivery O2 Flow Rate FiO2 02/28/20 05:20 94 140/75 02/28/20 02:24 99.4 20 96 Room Air 99.4 02/27/20 20:00 3.0 Physical Exam Physical Exam General: Other (Makes eye contact tries to talk but I cannot understand) Heart: Regular rate Lungs: Clear Abdomen: Normal bowel sounds Extremities: No cyanosis General: Cooperative, No acute distress Heart: Regular rate Lungs: Crackles Abdomen: Normal bowel sounds, No tenderness Extremities: No clubbing Skin: No rashes Labs LABS Laboratory Tests Test 02/27/20 11:30 02/27/20 16:38 02/27/20 21:46 02/28/20 04:00 Glucose (Fingerstick) 201 mg/dL (70-99) 247 mg/dL (70-99) 243 mg/dL (70-99) Sodium Level 143 mmol/L (136-145) Potassium Level 3.6 mmol/L (3.5-5.1) Chloride Level 111 mmol/L (98-107) Carbon Dioxide Level 25 mmol/L (21-32) Anion Gap 7 (6-14) Blood Urea Nitrogen 25 mg/dL (8-26) Creatinine 0.7 mg/dL (0.7-1.3) Estimated GFR (Cockcroft-Gault) 113.5 Glucose Level 260 mg/dL (70-99) Calcium Level 8.2 mg/dL (8.5-10.1) Assessment and Plan Assessmemt and Plan Problems Medical Problems: (1) Intraparenchymal hemorrhage of brain Status: Acute Comment Review of Relevant I have reviewed the following items faraz (where applicable) has been applied. Labs Laboratory Tests Test 02/26/20 07:03 02/26/20 11:57 02/26/20 18:58 02/27/20 00:53 Glucose (Fingerstick) 240 mg/dL (70-99) 244 mg/dL (70-99) 244 mg/dL (70-99) 253 mg/dL (70-99) Test 02/27/20 05:00 02/27/20 05:58 02/27/20 11:30 02/27/20 16:38 White Blood Count 22.0 x10^3/uL (4.0-11.0) Red Blood Count 4.76 x10^6/uL (4.30-5.70) Hemoglobin 14.4 g/dL (13.0-17.5) Hematocrit 43.4 % (39.0-53.0) Mean Corpuscular Volume 91 fL (79-100) Mean Corpuscular Hemoglobin 30 pg (25-35) Mean Corpuscular Hemoglobin Concent 33 g/dL (31-37) Red Cell Distribution Width 14.4 % (11.5-14.5) Platelet Count 117 x10^3/uL (140-400) Neutrophils (%) (Auto) 89 % (31-73) Lymphocytes (%) (Auto) 5 % (24-48) Monocytes (%) (Auto) 5 % (0-9) Eosinophils (%) (Auto) 0 % (0-3) Basophils (%) (Auto) 0 % (0-3) Neutrophils # (Auto) 19.6 x10^3/uL (1.8-7.7) Lymphocytes # (Auto) 1.2 x10^3/uL (1.0-4.8) Monocytes # (Auto) 1.1 x10^3/uL (0.0-1.1) Eosinophils # (Auto) 0.0 x10^3/uL (0.0-0.7) Basophils # (Auto) 0.1 x10^3/uL (0.0-0.2) Sodium Level 150 mmol/L (136-145) Potassium Level 4.1 mmol/L (3.5-5.1) Chloride Level 115 mmol/L (98-107) Carbon Dioxide Level 27 mmol/L (21-32) Anion Gap 8 (6-14) Blood Urea Nitrogen 30 mg/dL (8-26) Creatinine 0.9 mg/dL (0.7-1.3) Estimated GFR (Cockcroft-Gault) 85.0 Glucose Level 264 mg/dL (70-99) Calcium Level 8.7 mg/dL (8.5-10.1) Glucose (Fingerstick) 217 mg/dL (70-99) 201 mg/dL (70-99) 247 mg/dL (70-99) Test 02/27/20 21:46 02/28/20 04:00 Glucose (Fingerstick) 243 mg/dL (70-99) Sodium Level 143 mmol/L (136-145) Potassium Level 3.6 mmol/L (3.5-5.1) Chloride Level 111 mmol/L (98-107) Carbon Dioxide Level 25 mmol/L (21-32) Anion Gap 7 (6-14) Blood Urea Nitrogen 25 mg/dL (8-26) Creatinine 0.7 mg/dL (0.7-1.3) Estimated GFR (Cockcroft-Gault) 113.5 Glucose Level 260 mg/dL (70-99) Calcium Level 8.2 mg/dL (8.5-10.1) Laboratory Tests Test 02/27/20 11:30 02/27/20 16:38 02/27/20 21:46 02/28/20 04:00 Glucose (Fingerstick) 201 mg/dL (70-99) 247 mg/dL (70-99) 243 mg/dL (70-99) Sodium Level 143 mmol/L (136-145) Potassium Level 3.6 mmol/L (3.5-5.1) Chloride Level 111 mmol/L (98-107) Carbon Dioxide Level 25 mmol/L (21-32) Anion Gap 7 (6-14) Blood Urea Nitrogen 25 mg/dL (8-26) Creatinine 0.7 mg/dL (0.7-1.3) Estimated GFR (Cockcroft-Gault) 113.5 Glucose Level 260 mg/dL (70-99) Calcium Level 8.2 mg/dL (8.5-10.1) Medications Current Medications Nicardipine HCl 50 mg/Sodium Chloride 250 ml @ 12.5 mls/hr CONT PRN IV SEE I/O RECORD Last administered on 02/23/20at 09:50; Start 02/14/20 at 03:30; Stop 02/25/20 at 11:54; Status DC Ondansetron HCl (Zofran) 8 mg 1X ONCE IVP Last administered on 02/14/20at 03:48; Start 02/14/20 at 04:00; Stop 02/14/20 at 04:01; Status DC Metoclopramide HCl (Reglan Vial) 10 mg STK-MED ONCE .ROUTE ; Start 02/14/20 at 04:00; Stop 02/14/20 at 04:00; Status DC Diphenhydramine HCl (Benadryl) 50 mg STK-MED ONCE .ROUTE ; Start 02/14/20 at 04:02; Stop 02/14/20 at 04:02; Status DC Hydromorphone HCl (Dilaudid) 2 mg STK-MED ONCE .ROUTE ; Start 02/14/20 at 04:02; Stop 02/14/20 at 04:03; Status DC Lidocaine HCl (Lidocaine 1% 20ml Vial) 20 ml STK-MED ONCE .ROUTE ; Start 02/14/20 at 04:11; Stop 02/14/20 at 04:12; Status DC Ondansetron HCl (Zofran) 4 mg PRN Q8HRS PRN IV NAUSEA/VOMITING 1ST CHOICE; Start 02/14/20 at 04:45; Stop 02/15/20 at 04:44; Status DC Morphine Sulfate (Morphine Sulfate) 4 mg PRN Q2HR PRN IV SEVERE PAIN 7-10; Start 02/14/20 at 04:45; Stop 02/15/20 at 04:44; Status DC Rocuronium [place] (Zemuron) 100 mg 1X ONCE IV Last administered on 02/14/20at 04:56; Start 02/14/20 at 05:00; Stop 02/14/20 at 05:01; Status DC Etomidate (Amidate) 20 mg 1X ONCE IV Last administered on 02/14/20at 04:56; Start 02/14/20 at 05:00; Stop 02/14/20 at 05:01; Status DC Fentanyl Citrate (Fentanyl 2ml Vial) 100 mcg 1X ONCE IVP Last administered on 02/14/20at 04:55; Start 02/14/20 at 05:00; Stop 02/14/20 at 05:01; Status DC Propofol (Diprivan) 200 mg STK-MED ONCE IV ; Start 02/14/20 at 05:02; Stop 02/14/20 at 05:03; Status DC Propofol 50 ml @ As Directed STK-MED ONCE IV ; Start 02/14/20 at 05:03; Stop 02/14/20 at 05:03; Status DC Propofol (Diprivan) 200 mg 1X ONCE IV ; Start 02/14/20 at 05:30; Stop 02/14/20 at 05:31; Status DC Vancomycin HCl 250 ml @ 250 mls/hr PREOP PRN PRN IV PREOP Last administered on 02/14/20at 06:48; Start 02/14/20 at 06:00; Stop 02/15/20 at 05:59; Status DC Propofol 100 ml @ 0 mls/hr CONT PRN IV SEE I/O RECORD Last administered on 02/14/20at 11:30; Start 02/14/20 at 06:30; Stop 02/25/20 at 11:51; Status DC Fentanyl Citrate (Fentanyl 2ml Vial) 50 mcg 1X ONCE IVP Last administered on 02/14/20at 06:48; Start 02/14/20 at 07:00; Stop 02/14/20 at 07:01; Status DC Lidocaine HCl (Xylocaine-Mpf 1% 2ml Vial) 2 ml STK-MED ONCE .ROUTE ; Start 02/14/20 at 06:43; Stop 02/14/20 at 06:43; Status DC Fentanyl Citrate (Fentanyl 2ml Vial) 50 mcg 1X ONCE IVP Last administered on 02/14/20at 07:23; Start 02/14/20 at 07:30; Stop 02/14/20 at 07:31; Status DC Fentanyl Citrate 30 ml @ 2.5 mls/hr CONT PRN IV SEE PROTOCOL Last administered on 02/15/20at 09:14; Start 02/14/20 at 07:30; Stop 02/25/20 at 11:51; Status DC Fentanyl Citrate (Fentanyl 2ml Vial) 25 mcg PRN Q1HR PRN IV SEE COMMENTS; Start 02/14/20 at 07:30; Stop 02/15/20 at 18:51; Status DC Fentanyl Citrate (Fentanyl 2ml Vial) 50 mcg PRN Q1HR PRN IV SEE COMMENTS; Start 02/14/20 at 07:30; Stop 02/15/20 at 18:51; Status DC Famotidine (Pepcid Vial) 20 mg BID IVP ; Start 02/14/20 at 21:00; Stop 02/14/20 at 16:18; Status DC Potassium Chloride/Dextrose/ Sod Cl 1,000 ml @ 50 mls/hr Q20H IV Last administered on 02/24/20at 00:16; Start 02/14/20 at 11:30; Stop 02/24/20 at 12:27; Status DC Pantoprazole Sodium (PROTONIX VIAL for IV PUSH) 40 mg DAILYAC IVP Last administered on 02/27/20at 08:17; Start 02/15/20 at 07:30 Vancomycin HCl 1 gm/Sodium Chloride 250 ml @ 250 mls/hr Q12H IV Last administered on 02/17/20at 04:35; Start 02/15/20 at 17:00; Stop 02/17/20 at 07:34; Status DC Vancomycin HCl (Vanco Per Pharmacy) 1 each PRN DAILY PRN MC SEE COMMENTS; Start 02/15/20 at 16:15; Stop 02/17/20 at 07:35; Status DC Fentanyl Citrate (Fentanyl 2ml Vial) 25 mcg Q1HR ONCE IV Last administered on 02/15/20at 18:54; Start 02/15/20 at 19:00; Stop 02/15/20 at 19:01; Status DC Fentanyl Citrate (Fentanyl 2ml Vial) 25 mcg PRN Q1HR PRN IVP SEVERE PAIN 7-10 Last administered on 02/24/20at 04:26; Start 02/15/20 at 22:30 Cefazolin Sodium/ Dextrose (Ancef 2gm Premix) 2 gm STK-MED ONCE IV ; Start 02/14/20 at 07:00; Stop 02/16/20 at 06:46; Status DC Dexamethasone Sodium Phosphate (Decadron) 4 mg Q6HRS IVP Last administered on 02/22/20at 12:04; Start 02/16/20 at 12:00; Stop 02/22/20 at 15:31; Status DC Dexamethasone Sodium Phosphate (Decadron) 4 mg 1X ONCE IVP Last administered on 02/16/20at 07:57; Start 02/16/20 at 08:00; Stop 02/16/20 at 08:01; Status DC Dexmedetomidine HCl 400 mcg/ Sodium Chloride 100 ml @ 0 mls/hr CONT PRN IV PER PROTOCOL Last administered on 02/21/20at 23:32; Start 02/16/20 at 08:30; Stop 02/25/20 at 11:51; Status DC Sodium Chloride 500 ml @ 500 mls/hr 1X PRN PRN IV SEE COMMENTS; Start 02/16/20 at 08:30 Atropine Sulfate (ATROPINE 0.5mg SYRINGE) 0.5 mg PRN Q5MIN PRN IV SEE COMMENTS; Start 02/16/20 at 08:30 Levofloxacin/ Dextrose 100 ml @ 100 mls/hr Q24H IV Last administered on 02/22/20at 12:03; Start 02/16/20 at 12:00; Stop 02/22/20 at 13:37; Status DC Albuterol/ Ipratropium (Duoneb) 3 ml RTQID NEB Last administered on 02/27/20at 19:30; Start 02/16/20 at 12:00 Lorazepam (Ativan Inj) 1 mg PRN Q2HRS PRN IVP ANXIETY / AGITATION Last administered on 02/28/20at 01:44; Start 02/18/20 at 09:00 Metoprolol Tartrate (Lopressor Vial) 5 mg Q6HRS IVP Last administered on 02/28/20at 05:20; Start 02/22/20 at 10:30 Hydralazine HCl (Apresoline Inj) 10 mg Q4HRS IVP Last administered on 02/28/20at 03:12; Start 02/23/20 at 10:15 Amino Acids/ Glycerin/ Electrolytes 1,000 ml @ 80 mls/hr [id number] IV Last administered on 02/26/20at 08:32; Start 02/24/20 at 08:00; Stop 02/26/20 at 17:07; Status DC Potassium Chloride/Dextrose/ Sod Cl 1,000 ml @ 50 mls/hr Q20H IV Last administered on 02/25/20at 09:12; Start 02/25/20 at 09:00; Stop 02/25/20 at 11:13; Status DC Insulin Human Lispro (HumaLOG) 0-5 UNITS Q6HRS SQ Last administered on 02/27/20at 01:07; Start 02/25/20 at 12:00 Dextrose (Dextrose 50%-Water Syringe) 12.5 gm PRN Q15MIN PRN IV SEE COMMENTS; Start 02/25/20 at 08:45 Dextrose 1,000 ml @ 50 mls/hr Q20H IV Last administered on 02/28/20at 00:56; Start 02/25/20 at 11:15 Dextrose/Sodium Chloride 1,000 ml @ 75 mls/hr 1X ONCE IV Last administered on 02/26/20at 20:21; Start 02/26/20 at 17:15; Stop 02/27/20 at 06:34; Status DC Amino Acids/ Glycerin/ Electrolytes 1,000 ml @ 80 mls/hr [id number] IV Last administered on 02/27/20at 18:15; Start 02/26/20 at 17:15 Active Scripts Active Reported Flomax (Tamsulosin Hcl) 0.4 Mg Cap.er.24h 1 Cap PO DAILY Vitals/I & O Vital Sign - Last 24 Hours 02/27/20 02/27/20 02/27/20 02/27/20 07:16 07:58 08:00 10:28 Temp 97.9 98.8 97.9 98.8 Pulse 102 101 Resp 18 18 B/P (MAP) 131/84 (100) 145/76 (99) Pulse Ox 95 96 94 O2 Delivery Room Air Room Air Room Air Room Air 02/27/20 02/27/20 02/27/20 02/27/20 11:16 11:55 13:14 14:23 Temp 97.2 97.2 Pulse 103 102 77 Resp 18 B/P (MAP) 145/70 129/62 105/54 (71) Pulse Ox 96 96 O2 Delivery Room Air Room Air 02/27/20 02/27/20 02/27/20 02/27/20 15:51 16:39 18:02 19:32 Pulse 90 96 B/P (MAP) 143/78 136/60 Pulse Ox 95 97 O2 Delivery Room Air Room Air 02/27/20 02/27/20 02/27/20 02/27/20 19:45 20:00 21:43 23:11 Temp 97.9 97.9 Pulse 84 84 84 Resp 16 B/P (MAP) 122/71 (88) 122/71 122/71 Pulse Ox 96 O2 Delivery Room Air Room Air O2 Flow Rate 3.0 02/27/20 02/27/20 02/28/20 02/28/20 23:11 23:15 02:24 03:12 Temp 97.8 99.4 97.8 99.4 Pulse 84 88 94 94 Resp 20 20 B/P (MAP) 122/71 131/82 (98) 140/75 (96) 140/75 Pulse Ox 94 96 O2 Delivery Room Air Room Air 02/28/20 05:20 Pulse 94 B/P (MAP) 140/75 Intake and Output 02/27/20 02/27/20 02/28/20 15:00 23:00 07:00 Intake Total 0 ml 0 ml 0 ml Output Total 750 ml 1000 ml Balance 0 ml -750 ml -1000 ml Justicifation of Admission Dx: Justifications for Admission: Justification of Admission Dx: Yes Acute Hemorrhagic Stroke: Acute Hemorrhagic Stroke JADE CLAROS MD Feb 28, 2020 06:36
[2020-02-28 07:07] VITALS: BP 135/76
[2020-02-28] MEDS: IPRATRPIUM/ALBUTEROL 0.5/2.5MG 3 ML NEBU. NEB SCH ×4 (07:42→20:15)
[2020-02-28] MEDS: PANTOPRAZOLE IV PUSH 40 MG VIAL. IVP SCH (08:53)
--- NOTE | 2020-02-28 10:18 | PDOC ---
DATE OF SERVICE DATE: 02/28/20 TIME: 10:18 SUBJECTIVE ROS stable OBJECTIVE Vital Signs Vital Signs Date Time Temp Pulse Resp B/P (MAP) Pulse Ox O2 Delivery O2 Flow Rate FiO2 02/28/20 08:53 80 135/76 02/28/20 07:43 95 Room Air 02/28/20 07:30 3.0 02/28/20 07:07 98.4 20 98.4 I & 0 Intake and Output 02/28/20 07:00 Intake Total 0 ml Output Total 1750 ml Balance -1750 ml Intake Oral 0 ml Output Urine Total 1750 ml PHYSICAL EXAM Physical Exam General Appearance: no apparent distress Skin: warm Respiratory: bilateral CTA Heart: S1S2 Abdomen: soft, bowel sounds present Extremities: pulses present Neurology: confused, DIAGNOSIS/ASSESSMENT Assessment & Plan HyperNatremia - Resolved SASCHA -mild , resolved 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 Acute hypoxic resp failure Will sign off COMMENT/RELEVANT DATA Meds Current Medications Medications (Trade) Dose Ordered Sig/Fabricio Start Time Stop Time Status Last Admin Dose Admin Albuterol/ Ipratropium (Duoneb) 3 ml RTQID 02/16/20 12:00 02/28/20 07:42 3 ML Amino Acids/ Glycerin/ Electrolytes 1,000 ml @ 80 mls/hr [id number] 02/26/20 17:15 02/27/20 18:15 80 MLS/HR Atropine Sulfate (ATROPINE 0.5mg SYRINGE) 0.5 mg PRN Q5MIN PRN 02/16/20 08:30 Cefazolin Sodium/ Dextrose (Ancef 2gm Premix) 2 gm STK-MED ONCE 02/14/20 07:00 02/16/20 06:46 DC Dexamethasone Sodium Phosphate (Decadron) 4 mg 1X ONCE 02/16/20 08:00 02/16/20 08:01 DC 02/16/20 07:57 4 MG Dexmedetomidine HCl 400 mcg/ Sodium Chloride 100 ml @ 0 mls/hr CONT PRN 02/16/20 08:30 02/25/20 11:51 DC 02/21/20 23:32 14.7 MLS/HR Dextrose 1,000 ml @ 50 mls/hr Q20H 02/25/20 11:15 02/28/20 00:56 50 MLS/HR Dextrose (Dextrose 50%-Water Syringe) 12.5 gm PRN Q15MIN PRN 02/25/20 08:45 Dextrose/Sodium Chloride 1,000 ml @ 75 mls/hr 1X ONCE 02/26/20 17:15 02/27/20 06:34 DC 02/26/20 20:21 75 MLS/HR Diphenhydramine HCl (Benadryl) 50 mg STK-MED ONCE 02/14/20 04:02 02/14/20 04:02 DC Etomidate (Amidate) 20 mg 1X ONCE 02/14/20 05:00 02/14/20 05:01 DC 02/14/20 04:56 20 MG Famotidine (Pepcid Vial) 20 mg BID 02/14/20 21:00 02/14/20 16:18 DC Fentanyl Citrate (Fentanyl 2ml Vial) 25 mcg PRN Q1HR PRN 02/15/20 22:30 02/24/20 04:26 25 MCG Hydralazine HCl (Apresoline Inj) 10 mg Q4HRS 02/23/20 10:15 02/28/20 08:53 10 MG Hydromorphone HCl (Dilaudid) 2 mg STK-MED ONCE 02/14/20 04:02 02/14/20 04:03 DC Insulin Human Lispro (HumaLOG) 0-5 UNITS Q6HRS 02/25/20 12:00 02/28/20 09:03 2 UNITS Levofloxacin/ Dextrose 100 ml @ 100 mls/hr Q24H 02/16/20 12:00 02/22/20 13:37 DC 02/22/20 12:03 100 MLS/HR Lidocaine HCl (Lidocaine 1% 20ml Vial) 20 ml STK-MED ONCE 02/14/20 04:11 02/14/20 04:12 DC Lidocaine HCl (Xylocaine-Mpf 1% 2ml Vial) 2 ml STK-MED ONCE 02/14/20 06:43 02/14/20 06:43 DC Lorazepam (Ativan Inj) 1 mg PRN Q2HRS PRN 02/18/20 09:00 02/28/20 01:44 1 MG Metoclopramide HCl (Reglan Vial) 10 mg STK-MED ONCE 02/14/20 04:00 02/14/20 04:00 DC Metoprolol Tartrate (Lopressor Vial) 5 mg Q6HRS 02/22/20 10:30 02/28/20 05:20 5 MG Morphine Sulfate (Morphine Sulfate) 4 mg PRN Q2HR PRN 02/14/20 04:45 02/15/20 04:44 DC Nicardipine HCl 50 mg/Sodium Chloride 250 ml @ 12.5 mls/hr CONT PRN 02/14/20 03:30 02/25/20 11:54 DC 02/23/20 09:50 50 MLS/HR Ondansetron HCl (Zofran) 4 mg PRN Q8HRS PRN 02/14/20 04:45 02/15/20 04:44 DC Pantoprazole Sodium (PROTONIX VIAL for IV PUSH) 40 mg DAILYAC 02/15/20 07:30 02/28/20 08:53 40 MG Potassium Chloride/Dextrose/ Sod Cl 1,000 ml @ 50 mls/hr Q20H 02/25/20 09:00 02/25/20 11:13 DC 02/25/20 09:12 50 MLS/HR Propofol 100 ml @ 0 mls/hr CONT PRN 02/14/20 06:30 02/25/20 11:51 DC 02/14/20 11:30 12.54 MLS/HR Propofol (Diprivan) 200 mg 1X ONCE 02/14/20 05:30 02/14/20 05:31 DC Rocuronium [place] (Zemuron) 100 mg 1X ONCE 02/14/20 05:00 02/14/20 05:01 DC 02/14/20 04:56 100 MG Sodium Chloride 500 ml @ 500 mls/hr 1X PRN PRN 02/16/20 08:30 Vancomycin HCl (Vanco Per Pharmacy) 1 each PRN DAILY PRN 02/15/20 16:15 02/17/20 07:35 DC Vancomycin HCl 1 gm/Sodium Chloride 250 ml @ 250 mls/hr Q12H 02/15/20 17:00 02/17/20 07:34 DC 02/17/20 04:35 250 MLS/HR Lab Laboratory Tests Test 02/27/20 11:30 02/27/20 16:38 02/27/20 21:46 02/28/20 04:00 Glucose (Fingerstick) 201 mg/dL (70-99) 247 mg/dL (70-99) 243 mg/dL (70-99) Sodium Level 143 mmol/L (136-145) Potassium Level 3.6 mmol/L (3.5-5.1) Chloride Level 111 mmol/L (98-107) Carbon Dioxide Level 25 mmol/L (21-32) Anion Gap 7 (6-14) Blood Urea Nitrogen 25 mg/dL (8-26) Creatinine 0.7 mg/dL (0.7-1.3) Estimated GFR (Cockcroft-Gault) 113.5 Glucose Level 260 mg/dL (70-99) Calcium Level 8.2 mg/dL (8.5-10.1) Results All relevant outside records, renal labs, imaging studies, telemetry/EKG's were reviewed. Justicifation of Admission Dx: Justifications for Admission: Justification of Admission Dx: Yes Acute Hemorrhagic Stroke: Acute Hemorrhagic Stroke SURESH PERRIN MD Feb 28, 2020 10:18
[2020-02-28 10:21] VITALS: BP 132/64
--- NOTE | 2020-02-28 10:26 | PDOC ---
PROGRESS NOTES Date of Service DATE: 02/28/20 TIME: 10:24 Subjective Subjective No new problems. Objective Objective Vital Signs Date Time Temp Pulse Resp B/P (MAP) Pulse Ox O2 Delivery O2 Flow Rate FiO2 02/28/20 10:21 97.5 90 20 132/64 (86) 97 Room Air 97.5 02/28/20 07:30 3.0 Intake and Output 02/28/20 07:00 Intake Total 0 ml Output Total 1750 ml Balance -1750 ml Intake Oral 0 ml Output Urine Total 1750 ml Physical Exam Physical Exam He is resting comfortably supine in bed and no change with his left hemiplegia. Assessment Assessment Problems Medical Problems: (1) Intraparenchymal hemorrhage of brain Status: Acute Plan Plan of Care To continue present care efforts as tolerated. Comment Review of Relevant I have reviewed the following items faraz (where applicable) has been applied. Labs Laboratory Tests Test 02/26/20 11:57 02/26/20 18:58 02/27/20 00:53 02/27/20 05:00 Glucose (Fingerstick) 244 mg/dL (70-99) 244 mg/dL (70-99) 253 mg/dL (70-99) White Blood Count 22.0 x10^3/uL (4.0-11.0) Red Blood Count 4.76 x10^6/uL (4.30-5.70) Hemoglobin 14.4 g/dL (13.0-17.5) Hematocrit 43.4 % (39.0-53.0) Mean Corpuscular Volume 91 fL (79-100) Mean Corpuscular Hemoglobin 30 pg (25-35) Mean Corpuscular Hemoglobin Concent 33 g/dL (31-37) Red Cell Distribution Width 14.4 % (11.5-14.5) Platelet Count 117 x10^3/uL (140-400) Neutrophils (%) (Auto) 89 % (31-73) Lymphocytes (%) (Auto) 5 % (24-48) Monocytes (%) (Auto) 5 % (0-9) Eosinophils (%) (Auto) 0 % (0-3) Basophils (%) (Auto) 0 % (0-3) Neutrophils # (Auto) 19.6 x10^3/uL (1.8-7.7) Lymphocytes # (Auto) 1.2 x10^3/uL (1.0-4.8) Monocytes # (Auto) 1.1 x10^3/uL (0.0-1.1) Eosinophils # (Auto) 0.0 x10^3/uL (0.0-0.7) Basophils # (Auto) 0.1 x10^3/uL (0.0-0.2) Sodium Level 150 mmol/L (136-145) Potassium Level 4.1 mmol/L (3.5-5.1) Chloride Level 115 mmol/L (98-107) Carbon Dioxide Level 27 mmol/L (21-32) Anion Gap 8 (6-14) Blood Urea Nitrogen 30 mg/dL (8-26) Creatinine 0.9 mg/dL (0.7-1.3) Estimated GFR (Cockcroft-Gault) 85.0 Glucose Level 264 mg/dL (70-99) Calcium Level 8.7 mg/dL (8.5-10.1) Test 02/27/20 05:58 02/27/20 11:30 02/27/20 16:38 02/27/20 21:46 Glucose (Fingerstick) 217 mg/dL (70-99) 201 mg/dL (70-99) 247 mg/dL (70-99) 243 mg/dL (70-99) Test 02/28/20 04:00 Sodium Level 143 mmol/L (136-145) Potassium Level 3.6 mmol/L (3.5-5.1) Chloride Level 111 mmol/L (98-107) Carbon Dioxide Level 25 mmol/L (21-32) Anion Gap 7 (6-14) Blood Urea Nitrogen 25 mg/dL (8-26) Creatinine 0.7 mg/dL (0.7-1.3) Estimated GFR (Cockcroft-Gault) 113.5 Glucose Level 260 mg/dL (70-99) Calcium Level 8.2 mg/dL (8.5-10.1) Laboratory Tests Test 02/27/20 11:30 02/27/20 16:38 02/27/20 21:46 02/28/20 04:00 Glucose (Fingerstick) 201 mg/dL (70-99) 247 mg/dL (70-99) 243 mg/dL (70-99) Sodium Level 143 mmol/L (136-145) Potassium Level 3.6 mmol/L (3.5-5.1) Chloride Level 111 mmol/L (98-107) Carbon Dioxide Level 25 mmol/L (21-32) Anion Gap 7 (6-14) Blood Urea Nitrogen 25 mg/dL (8-26) Creatinine 0.7 mg/dL (0.7-1.3) Estimated GFR (Cockcroft-Gault) 113.5 Glucose Level 260 mg/dL (70-99) Calcium Level 8.2 mg/dL (8.5-10.1) Medications Current Medications Nicardipine HCl 50 mg/Sodium Chloride 250 ml @ 12.5 mls/hr CONT PRN IV SEE I/O RECORD Last administered on 02/23/20at 09:50; Start 02/14/20 at 03:30; Stop 02/25/20 at 11:54; Status DC Ondansetron HCl (Zofran) 8 mg 1X ONCE IVP Last administered on 02/14/20at 03:48; Start 02/14/20 at 04:00; Stop 02/14/20 at 04:01; Status DC Metoclopramide HCl (Reglan Vial) 10 mg STK-MED ONCE .ROUTE ; Start 02/14/20 at 04:00; Stop 02/14/20 at 04:00; Status DC Diphenhydramine HCl (Benadryl) 50 mg STK-MED ONCE .ROUTE ; Start 02/14/20 at 04:02; Stop 02/14/20 at 04:02; Status DC Hydromorphone HCl (Dilaudid) 2 mg STK-MED ONCE .ROUTE ; Start 02/14/20 at 04:02; Stop 02/14/20 at 04:03; Status DC Lidocaine HCl (Lidocaine 1% 20ml Vial) 20 ml STK-MED ONCE .ROUTE ; Start 02/14/20 at 04:11; Stop 02/14/20 at 04:12; Status DC Ondansetron HCl (Zofran) 4 mg PRN Q8HRS PRN IV NAUSEA/VOMITING 1ST CHOICE; Start 02/14/20 at 04:45; Stop 02/15/20 at 04:44; Status DC Morphine Sulfate (Morphine Sulfate) 4 mg PRN Q2HR PRN IV SEVERE PAIN 7-10; Start 02/14/20 at 04:45; Stop 02/15/20 at 04:44; Status DC Rocuronium [place] (Zemuron) 100 mg 1X ONCE IV Last administered on 02/14/20at 04:56; Start 02/14/20 at 05:00; Stop 02/14/20 at 05:01; Status DC Etomidate (Amidate) 20 mg 1X ONCE IV Last administered on 02/14/20at 04:56; Start 02/14/20 at 05:00; Stop 02/14/20 at 05:01; Status DC Fentanyl Citrate (Fentanyl 2ml Vial) 100 mcg 1X ONCE IVP Last administered on 02/14/20at 04:55; Start 02/14/20 at 05:00; Stop 02/14/20 at 05:01; Status DC Propofol (Diprivan) 200 mg STK-MED ONCE IV ; Start 02/14/20 at 05:02; Stop 02/14/20 at 05:03; Status DC Propofol 50 ml @ As Directed STK-MED ONCE IV ; Start 02/14/20 at 05:03; Stop 02/14/20 at 05:03; Status DC Propofol (Diprivan) 200 mg 1X ONCE IV ; Start 02/14/20 at 05:30; Stop 02/14/20 at 05:31; Status DC Vancomycin HCl 250 ml @ 250 mls/hr PREOP PRN PRN IV PREOP Last administered on 02/14/20at 06:48; Start 02/14/20 at 06:00; Stop 02/15/20 at 05:59; Status DC Propofol 100 ml @ 0 mls/hr CONT PRN IV SEE I/O RECORD Last administered on 02/14/20at 11:30; Start 02/14/20 at 06:30; Stop 02/25/20 at 11:51; Status DC Fentanyl Citrate (Fentanyl 2ml Vial) 50 mcg 1X ONCE IVP Last administered on 02/14/20at 06:48; Start 02/14/20 at 07:00; Stop 02/14/20 at 07:01; Status DC Lidocaine HCl (Xylocaine-Mpf 1% 2ml Vial) 2 ml STK-MED ONCE .ROUTE ; Start 02/14/20 at 06:43; Stop 02/14/20 at 06:43; Status DC Fentanyl Citrate (Fentanyl 2ml Vial) 50 mcg 1X ONCE IVP Last administered on 02/14/20at 07:23; Start 02/14/20 at 07:30; Stop 02/14/20 at 07:31; Status DC Fentanyl Citrate 30 ml @ 2.5 mls/hr CONT PRN IV SEE PROTOCOL Last administered on 02/15/20at 09:14; Start 02/14/20 at 07:30; Stop 02/25/20 at 11:51; Status DC Fentanyl Citrate (Fentanyl 2ml Vial) 25 mcg PRN Q1HR PRN IV SEE COMMENTS; Start 02/14/20 at 07:30; Stop 02/15/20 at 18:51; Status DC Fentanyl Citrate (Fentanyl 2ml Vial) 50 mcg PRN Q1HR PRN IV SEE COMMENTS; Start 02/14/20 at 07:30; Stop 02/15/20 at 18:51; Status DC Famotidine (Pepcid Vial) 20 mg BID IVP ; Start 02/14/20 at 21:00; Stop 02/14/20 at 16:18; Status DC Potassium Chloride/Dextrose/ Sod Cl 1,000 ml @ 50 mls/hr Q20H IV Last administered on 02/24/20at 00:16; Start 02/14/20 at 11:30; Stop 02/24/20 at 12:27; Status DC Pantoprazole Sodium (PROTONIX VIAL for IV PUSH) 40 mg DAILYAC IVP Last administered on 02/28/20at 08:53; Start 02/15/20 at 07:30 Vancomycin HCl 1 gm/Sodium Chloride 250 ml @ 250 mls/hr Q12H IV Last administered on 02/17/20at 04:35; Start 02/15/20 at 17:00; Stop 02/17/20 at 07:34; Status DC Vancomycin HCl (Vanco Per Pharmacy) 1 each PRN DAILY PRN MC SEE COMMENTS; Start 02/15/20 at 16:15; Stop 02/17/20 at 07:35; Status DC Fentanyl Citrate (Fentanyl 2ml Vial) 25 mcg Q1HR ONCE IV Last administered on 02/15/20at 18:54; Start 02/15/20 at 19:00; Stop 02/15/20 at 19:01; Status DC Fentanyl Citrate (Fentanyl 2ml Vial) 25 mcg PRN Q1HR PRN IVP SEVERE PAIN 7-10 Last administered on 02/24/20at 04:26; Start 02/15/20 at 22:30 Cefazolin Sodium/ Dextrose (Ancef 2gm Premix) 2 gm STK-MED ONCE IV ; Start 02/14/20 at 07:00; Stop 02/16/20 at 06:46; Status DC Dexamethasone Sodium Phosphate (Decadron) 4 mg Q6HRS IVP Last administered on 02/22/20at 12:04; Start 02/16/20 at 12:00; Stop 02/22/20 at 15:31; Status DC Dexamethasone Sodium Phosphate (Decadron) 4 mg 1X ONCE IVP Last administered on 02/16/20at 07:57; Start 02/16/20 at 08:00; Stop 02/16/20 at 08:01; Status DC Dexmedetomidine HCl 400 mcg/ Sodium Chloride 100 ml @ 0 mls/hr CONT PRN IV PER PROTOCOL Last administered on 02/21/20at 23:32; Start 02/16/20 at 08:30; Stop 02/25/20 at 11:51; Status DC Sodium Chloride 500 ml @ 500 mls/hr 1X PRN PRN IV SEE COMMENTS; Start 02/16/20 at 08:30 Atropine Sulfate (ATROPINE 0.5mg SYRINGE) 0.5 mg PRN Q5MIN PRN IV SEE COMMENTS; Start 02/16/20 at 08:30 Levofloxacin/ Dextrose 100 ml @ 100 mls/hr Q24H IV Last administered on 02/22/20at 12:03; Start 02/16/20 at 12:00; Stop 02/22/20 at 13:37; Status DC Albuterol/ Ipratropium (Duoneb) 3 ml RTQID NEB Last administered on 02/28/20at 07:42; Start 02/16/20 at 12:00 Lorazepam (Ativan Inj) 1 mg PRN Q2HRS PRN IVP ANXIETY / AGITATION Last administered on 02/28/20at 01:44; Start 02/18/20 at 09:00 Metoprolol Tartrate (Lopressor Vial) 5 mg Q6HRS IVP Last administered on 02/28/20at 05:20; Start 02/22/20 at 10:30 Hydralazine HCl (Apresoline Inj) 10 mg Q4HRS IVP Last administered on 02/28/20at 08:53; Start 02/23/20 at 10:15 Amino Acids/ Glycerin/ Electrolytes 1,000 ml @ 80 mls/hr [id number] IV Last administered on 02/26/20at 08:32; Start 02/24/20 at 08:00; Stop 02/26/20 at 17:07; Status DC Potassium Chloride/Dextrose/ Sod Cl 1,000 ml @ 50 mls/hr Q20H IV Last administered on 02/25/20at 09:12; Start 02/25/20 at 09:00; Stop 02/25/20 at 11:13; Status DC Insulin Human Lispro (HumaLOG) 0-5 UNITS Q6HRS SQ Last administered on 02/28/20at 09:03; Start 02/25/20 at 12:00 Dextrose (Dextrose 50%-Water Syringe) 12.5 gm PRN Q15MIN PRN IV SEE COMMENTS; Start 02/25/20 at 08:45 Dextrose 1,000 ml @ 50 mls/hr Q20H IV Last administered on 02/28/20at 00:56; Start 02/25/20 at 11:15 Dextrose/Sodium Chloride 1,000 ml @ 75 mls/hr 1X ONCE IV Last administered on 02/26/20at 20:21; Start 02/26/20 at 17:15; Stop 02/27/20 at 06:34; Status DC Amino Acids/ Glycerin/ Electrolytes 1,000 ml @ 80 mls/hr [id number] IV Last administered on 02/27/20at 18:15; Start 02/26/20 at 17:15 Active Scripts Active Reported Flomax (Tamsulosin Hcl) 0.4 Mg Cap.er.24h 1 Cap PO DAILY Vitals/I & O Vital Sign - Last 24 Hours 02/27/20 02/27/20 02/27/20 02/27/20 10:28 11:16 11:55 13:14 Temp 98.8 98.8 Pulse 101 103 102 Resp 18 B/P (MAP) 145/76 (99) 145/70 129/62 Pulse Ox 94 96 O2 Delivery Room Air Room Air 02/27/20 02/27/20 02/27/20 02/27/20 14:23 15:51 16:39 18:02 Temp 97.2 97.2 Pulse 77 90 96 Resp 18 B/P (MAP) 105/54 (71) 143/78 136/60 Pulse Ox 96 95 O2 Delivery Room Air Room Air 02/27/20 02/27/20 02/27/20 02/27/20 19:32 19:45 20:00 21:43 Temp 97.9 97.9 Pulse 84 84 Resp 16 B/P (MAP) 122/71 (88) 122/71 Pulse Ox 97 96 O2 Delivery Room Air Room Air Room Air O2 Flow Rate 3.0 02/27/20 02/27/20 02/27/20 02/28/20 23:11 23:11 23:15 02:24 Temp 97.8 99.4 97.8 99.4 Pulse 84 84 88 94 Resp 20 20 B/P (MAP) 122/71 122/71 131/82 (98) 140/75 (96) Pulse Ox 94 96 O2 Delivery Room Air Room Air 02/28/20 02/28/20 02/28/20 02/28/20 03:12 05:20 07:07 07:30 Temp 98.4 98.4 Pulse 94 94 80 Resp 20 B/P (MAP) 140/75 140/75 135/76 (95) Pulse Ox 96 O2 Delivery Room Air Room Air O2 Flow Rate 3.0 02/28/20 02/28/20 02/28/20 07:43 08:53 10:21 Temp 97.5 97.5 Pulse 80 90 Resp 20 B/P (MAP) 135/76 132/64 (86) Pulse Ox 95 97 O2 Delivery Room Air Room Air Intake and Output 02/27/20 02/27/20 02/28/20 15:00 23:00 07:00 Intake Total 0 ml 0 ml 0 ml Output Total 750 ml 1000 ml Balance 0 ml -750 ml -1000 ml Justifications for Admission Other Justification CYNDEE VASQUEZ MD Feb 28, 2020 10:26
[2020-02-28] MEDS: AMINO AC 3%/ELECTROLYTE/GLYCER 1,000 ML IV SCH ×2 (11:39→23:13)
--- NOTE | 2020-02-28 13:41 | PDOC ---
PROGRESS NOTES Date of Service DATE: 02/28/20 TIME: 13:40 Assessment Problems Medical Problems: (1) Intraparenchymal hemorrhage of brain Status: Acute He received some lorazepam early this morning and has been sedated since. Right thalamic hemorrhage with intraventricular rupture. He developed acute hydrocephalus and required an emergent EVD, then removed it 02/17 Acute respiratory failure, extubated. Dense left hemiparesis. Neurogenic dysphagia, keeps pulling out his Dobhoff Plan Given prolonged somnolence, I will check a follow-up head CT today PEG on 03/01 No need for prophylactic anticonvulsants Subjective none Objective Vital Signs Date Time Temp Pulse Resp B/P (MAP) Pulse Ox O2 Delivery O2 Flow Rate FiO2 02/28/20 12:03 Room Air 02/28/20 12:00 90 132/64 02/28/20 10:21 97.5 20 97 97.5 02/28/20 07:30 3.0 Intake and Output 02/28/20 07:00 Intake Total 0 ml Output Total 1750 ml Balance -1750 ml Intake Oral 0 ml Output Urine Total 1750 ml PHYSICAL EXAM Sleepy, arouses slightly to voice PERRL. EOMI. CN: no focal findings. Muscle tone: increased on left Muscle strength: Left hemiparesis DTR: 2+ Plantar reflex: extensor on the left Gait: not examined in bed. Sensory exam: no abnormal findings. No cerebellar signs elicited. Review of Relevant I have reviewed the following items faraz (where applicable) has been applied. Labs Laboratory Tests Test 02/26/20 18:58 02/27/20 00:53 02/27/20 05:00 02/27/20 05:58 Glucose (Fingerstick) 244 mg/dL (70-99) 253 mg/dL (70-99) 217 mg/dL (70-99) White Blood Count 22.0 x10^3/uL (4.0-11.0) Red Blood Count 4.76 x10^6/uL (4.30-5.70) Hemoglobin 14.4 g/dL (13.0-17.5) Hematocrit 43.4 % (39.0-53.0) Mean Corpuscular Volume 91 fL (79-100) Mean Corpuscular Hemoglobin 30 pg (25-35) Mean Corpuscular Hemoglobin Concent 33 g/dL (31-37) Red Cell Distribution Width 14.4 % (11.5-14.5) Platelet Count 117 x10^3/uL (140-400) Neutrophils (%) (Auto) 89 % (31-73) Lymphocytes (%) (Auto) 5 % (24-48) Monocytes (%) (Auto) 5 % (0-9) Eosinophils (%) (Auto) 0 % (0-3) Basophils (%) (Auto) 0 % (0-3) Neutrophils # (Auto) 19.6 x10^3/uL (1.8-7.7) Lymphocytes # (Auto) 1.2 x10^3/uL (1.0-4.8) Monocytes # (Auto) 1.1 x10^3/uL (0.0-1.1) Eosinophils # (Auto) 0.0 x10^3/uL (0.0-0.7) Basophils # (Auto) 0.1 x10^3/uL (0.0-0.2) Sodium Level 150 mmol/L (136-145) Potassium Level 4.1 mmol/L (3.5-5.1) Chloride Level 115 mmol/L (98-107) Carbon Dioxide Level 27 mmol/L (21-32) Anion Gap 8 (6-14) Blood Urea Nitrogen 30 mg/dL (8-26) Creatinine 0.9 mg/dL (0.7-1.3) Estimated GFR (Cockcroft-Gault) 85.0 Glucose Level 264 mg/dL (70-99) Calcium Level 8.7 mg/dL (8.5-10.1) Test 02/27/20 11:30 02/27/20 16:38 02/27/20 21:46 02/28/20 04:00 Glucose (Fingerstick) 201 mg/dL (70-99) 247 mg/dL (70-99) 243 mg/dL (70-99) Sodium Level 143 mmol/L (136-145) Potassium Level 3.6 mmol/L (3.5-5.1) Chloride Level 111 mmol/L (98-107) Carbon Dioxide Level 25 mmol/L (21-32) Anion Gap 7 (6-14) Blood Urea Nitrogen 25 mg/dL (8-26) Creatinine 0.7 mg/dL (0.7-1.3) Estimated GFR (Cockcroft-Gault) 113.5 Glucose Level 260 mg/dL (70-99) Calcium Level 8.2 mg/dL (8.5-10.1) Test 02/28/20 11:12 Glucose (Fingerstick) 189 mg/dL (70-99) Laboratory Tests Test 02/27/20 16:38 02/27/20 21:46 02/28/20 04:00 02/28/20 11:12 Glucose (Fingerstick) 247 mg/dL (70-99) 243 mg/dL (70-99) 189 mg/dL (70-99) Sodium Level 143 mmol/L (136-145) Potassium Level 3.6 mmol/L (3.5-5.1) Chloride Level 111 mmol/L (98-107) Carbon Dioxide Level 25 mmol/L (21-32) Anion Gap 7 (6-14) Blood Urea Nitrogen 25 mg/dL (8-26) Creatinine 0.7 mg/dL (0.7-1.3) Estimated GFR (Cockcroft-Gault) 113.5 Glucose Level 260 mg/dL (70-99) Calcium Level 8.2 mg/dL (8.5-10.1) Medications Current Medications Nicardipine HCl 50 mg/Sodium Chloride 250 ml @ 12.5 mls/hr CONT PRN IV SEE I/O RECORD Last administered on 02/23/20at 09:50; Start 02/14/20 at 03:30; Stop 02/25/20 at 11:54; Status DC Ondansetron HCl (Zofran) 8 mg 1X ONCE IVP Last administered on 02/14/20at 03:48; Start 02/14/20 at 04:00; Stop 02/14/20 at 04:01; Status DC Metoclopramide HCl (Reglan Vial) 10 mg STK-MED ONCE .ROUTE ; Start 02/14/20 at 04:00; Stop 02/14/20 at 04:00; Status DC Diphenhydramine HCl (Benadryl) 50 mg STK-MED ONCE .ROUTE ; Start 02/14/20 at 04:02; Stop 02/14/20 at 04:02; Status DC Hydromorphone HCl (Dilaudid) 2 mg STK-MED ONCE .ROUTE ; Start 02/14/20 at 04:02; Stop 02/14/20 at 04:03; Status DC Lidocaine HCl (Lidocaine 1% 20ml Vial) 20 ml STK-MED ONCE .ROUTE ; Start 02/14/20 at 04:11; Stop 02/14/20 at 04:12; Status DC Ondansetron HCl (Zofran) 4 mg PRN Q8HRS PRN IV NAUSEA/VOMITING 1ST CHOICE; Start 02/14/20 at 04:45; Stop 02/15/20 at 04:44; Status DC Morphine Sulfate (Morphine Sulfate) 4 mg PRN Q2HR PRN IV SEVERE PAIN 7-10; Start 02/14/20 at 04:45; Stop 02/15/20 at 04:44; Status DC Rocuronium [place] (Zemuron) 100 mg 1X ONCE IV Last administered on 02/14/20at 04:56; Start 02/14/20 at 05:00; Stop 02/14/20 at 05:01; Status DC Etomidate (Amidate) 20 mg 1X ONCE IV Last administered on 02/14/20at 04:56; Start 02/14/20 at 05:00; Stop 02/14/20 at 05:01; Status DC Fentanyl Citrate (Fentanyl 2ml Vial) 100 mcg 1X ONCE IVP Last administered on 02/14/20at 04:55; Start 02/14/20 at 05:00; Stop 02/14/20 at 05:01; Status DC Propofol (Diprivan) 200 mg STK-MED ONCE IV ; Start 02/14/20 at 05:02; Stop 02/14/20 at 05:03; Status DC Propofol 50 ml @ As Directed STK-MED ONCE IV ; Start 02/14/20 at 05:03; Stop 02/14/20 at 05:03; Status DC Propofol (Diprivan) 200 mg 1X ONCE IV ; Start 02/14/20 at 05:30; Stop 02/14/20 at 05:31; Status DC Vancomycin HCl 250 ml @ 250 mls/hr PREOP PRN PRN IV PREOP Last administered on 02/14/20at 06:48; Start 02/14/20 at 06:00; Stop 02/15/20 at 05:59; Status DC Propofol 100 ml @ 0 mls/hr CONT PRN IV SEE I/O RECORD Last administered on 02/14/20at 11:30; Start 02/14/20 at 06:30; Stop 02/25/20 at 11:51; Status DC Fentanyl Citrate (Fentanyl 2ml Vial) 50 mcg 1X ONCE IVP Last administered on 02/14/20at 06:48; Start 02/14/20 at 07:00; Stop 02/14/20 at 07:01; Status DC Lidocaine HCl (Xylocaine-Mpf 1% 2ml Vial) 2 ml STK-MED ONCE .ROUTE ; Start 02/14/20 at 06:43; Stop 02/14/20 at 06:43; Status DC Fentanyl Citrate (Fentanyl 2ml Vial) 50 mcg 1X ONCE IVP Last administered on 02/14/20at 07:23; Start 02/14/20 at 07:30; Stop 02/14/20 at 07:31; Status DC Fentanyl Citrate 30 ml @ 2.5 mls/hr CONT PRN IV SEE PROTOCOL Last administered on 02/15/20at 09:14; Start 02/14/20 at 07:30; Stop 02/25/20 at 11:51; Status DC Fentanyl Citrate (Fentanyl 2ml Vial) 25 mcg PRN Q1HR PRN IV SEE COMMENTS; Start 02/14/20 at 07:30; Stop 02/15/20 at 18:51; Status DC Fentanyl Citrate (Fentanyl 2ml Vial) 50 mcg PRN Q1HR PRN IV SEE COMMENTS; Start 02/14/20 at 07:30; Stop 02/15/20 at 18:51; Status DC Famotidine (Pepcid Vial) 20 mg BID IVP ; Start 02/14/20 at 21:00; Stop 02/14/20 at 16:18; Status DC Potassium Chloride/Dextrose/ Sod Cl 1,000 ml @ 50 mls/hr Q20H IV Last admini stered on 02/24/20at 00:16; Start 02/14/20 at 11:30; Stop 02/24/20 at 12:27; Status DC Pantoprazole Sodium (PROTONIX VIAL for IV PUSH) 40 mg DAILYAC IVP Last administered on 02/28/20at 08:53; Start 02/15/20 at 07:30 Vancomycin HCl 1 gm/Sodium Chloride 250 ml @ 250 mls/hr Q12H IV Last administered on 02/17/20at 04:35; Start 02/15/20 at 17:00; Stop 02/17/20 at 07:34; Status DC Vancomycin HCl (Vanco Per Pharmacy) 1 each PRN DAILY PRN MC SEE COMMENTS; Start 02/15/20 at 16:15; Stop 02/17/20 at 07:35; Status DC Fentanyl Citrate (Fentanyl 2ml Vial) 25 mcg Q1HR ONCE IV Last administered on 02/15/20at 18:54; Start 02/15/20 at 19:00; Stop 02/15/20 at 19:01; Status DC Fentanyl Citrate (Fentanyl 2ml Vial) 25 mcg PRN Q1HR PRN IVP SEVERE PAIN 7-10 Last administered on 02/24/20at 04:26; Start 02/15/20 at 22:30 Cefazolin Sodium/ Dextrose (Ancef 2gm Premix) 2 gm STK-MED ONCE IV ; Start 02/14/20 at 07:00; Stop 02/16/20 at 06:46; Status DC Dexamethasone Sodium Phosphate (Decadron) 4 mg Q6HRS IVP Last administered on 02/22/20at 12:04; Start 02/16/20 at 12:00; Stop 02/22/20 at 15:31; Status DC Dexamethasone Sodium Phosphate (Decadron) 4 mg 1X ONCE IVP Last administered on 02/16/20at 07:57; Start 02/16/20 at 08:00; Stop 02/16/20 at 08:01; Status DC Dexmedetomidine HCl 400 mcg/ Sodium Chloride 100 ml @ 0 mls/hr CONT PRN IV PER PROTOCOL Last administered on 02/21/20at 23:32; Start 02/16/20 at 08:30; Stop 02/25/20 at 11:51; Status DC Sodium Chloride 500 ml @ 500 mls/hr 1X PRN PRN IV SEE COMMENTS; Start 02/16/20 at 08:30 Atropine Sulfate (ATROPINE 0.5mg SYRINGE) 0.5 mg PRN Q5MIN PRN IV SEE COMMENTS; Start 02/16/20 at 08:30 Levofloxacin/ Dextrose 100 ml @ 100 mls/hr Q24H IV Last administered on 02/22/20at 12:03; Start 02/16/20 at 12:00; Stop 02/22/20 at 13:37; Status DC Albuterol/ Ipratropium (Duoneb) 3 ml RTQID NEB Last administered on 02/28/20at 12:01; Start 02/16/20 at 12:00 Lorazepam (Ativan Inj) 1 mg PRN Q2HRS PRN IVP ANXIETY / AGITATION Last administered on 02/28/20at 01:44; Start 02/18/20 at 09:00 Metoprolol Tartrate (Lopressor Vial) 5 mg Q6HRS IVP Last administered on 02/28/20at 12:00; Start 02/22/20 at 10:30 Hydralazine HCl (Apresoline Inj) 10 mg Q4HRS IVP Last administered on 02/28/20at 12:00; Start 02/23/20 at 10:15 Amino Acids/ Glycerin/ Electrolytes 1,000 ml @ 80 mls/hr [id number] IV Last administered on 02/26/20at 08:32; Start 02/24/20 at 08:00; Stop 02/26/20 at 17:07; Status DC Potassium Chloride/Dextrose/ Sod Cl 1,000 ml @ 50 mls/hr Q20H IV Last administered on 02/25/20at 09:12; Start 02/25/20 at 09:00; Stop 02/25/20 at 11:13; Status DC Insulin Human Lispro (HumaLOG) 0-5 UNITS Q6HRS SQ Last administered on 02/28/20at 09:03; Start 02/25/20 at 12:00 Dextrose (Dextrose 50%-Water Syringe) 12.5 gm PRN Q15MIN PRN IV SEE COMMENTS; Start 02/25/20 at 08:45 Dextrose 1,000 ml @ 50 mls/hr Q20H IV Last administered on 02/28/20at 00:56; Start 02/25/20 at 11:15 Dextrose/Sodium Chloride 1,000 ml @ 75 mls/hr 1X ONCE IV Last administered on 02/26/20at 20:21; Start 02/26/20 at 17:15; Stop 02/27/20 at 06:34; Status DC Amino Acids/ Glycerin/ Electrolytes 1,000 ml @ 80 mls/hr [id number] IV Last administered on 02/28/20at 11:39; Start 02/26/20 at 17:15 Active Scripts Active Reported Flomax (Tamsulosin Hcl) 0.4 Mg Cap.er.24h 1 Cap PO DAILY Vitals/I & O Vital Sign - Last 24 Hours 02/27/20 02/27/20 02/27/20 02/27/20 14:23 15:51 16:39 18:02 Temp 97.2 97.2 Pulse 77 90 96 Resp 18 B/P (MAP) 105/54 (71) 143/78 136/60 Pulse Ox 96 95 O2 Delivery Room Air Room Air 02/27/20 02/27/20 02/27/20 02/27/20 19:32 19:45 20:00 21:43 Temp 97.9 97.9 Pulse 84 84 Resp 16 B/P (MAP) 122/71 (88) 122/71 Pulse Ox 97 96 O2 Delivery Room Air Room Air Room Air O2 Flow Rate 3.0 02/27/20 02/27/20 02/27/20 02/28/20 23:11 23:11 23:15 02:24 Temp 97.8 99.4 97.8 99.4 Pulse 84 84 88 94 Resp 20 20 B/P (MAP) 122/71 122/71 131/82 (98) 140/75 (96) Pulse Ox 94 96 O2 Delivery Room Air Room Air 02/28/20 02/28/20 02/28/20 02/28/20 03:12 05:20 07:07 07:30 Temp 98.4 98.4 Pulse 94 94 80 Resp 20 B/P (MAP) 140/75 140/75 135/76 (95) Pulse Ox 96 O2 Delivery Room Air Room Air O2 Flow Rate 3.0 02/28/20 02/28/20 02/28/20 02/28/20 07:43 08:53 10:21 12:00 Temp 97.5 97.5 Pulse 80 90 90 Resp 20 B/P (MAP) 135/76 132/64 (86) 132/64 Pulse Ox 95 97 O2 Delivery Room Air Room Air 02/28/20 02/28/20 12:00 12:03 Pulse 90 B/P (MAP) 132/64 O2 Delivery Room Air Intake and Output 02/27/20 02/27/20 02/28/20 15:00 23:00 07:00 Intake Total 0 ml 0 ml 0 ml Output Total 750 ml 1000 ml Balance 0 ml -750 ml -1000 ml Justicifation of Admission Dx: Justifications for Admission: Justification of Admission Dx: Yes Acute Hemorrhagic Stroke: Acute Hemorrhagic Stroke TEE FRANCIS MD Feb 28, 2020 13:41
[2020-02-28 14:25] VITALS: BP 140/80
--- NOTE | 2020-02-28 14:32 | RAD ---
STUDY: CT head without contrast INDICATION: Altered mental status. Follow-up intracranial hemorrhage. COMPARISON: 02/27/2020 TECHNIQUE: Axial CT imaging through the head without the use of intravenous contrast. Sagittal and coronal reformats were obtained. One or more of the following individualized dose reduction techniques were utilized for this examination: 1. Automated exposure control 2. Adjustment of the mA and/or kV according to patient size 3. Use of iterative reconstruction technique. FINDINGS: Redemonstrated right thalamic hematoma with intraventricular extension and surrounding parenchymal edema. The extent of mass effect and volume of hemorrhage has not significantly changed in the interim. Unchanged configuration of the lateral and third ventricles. No newly seen basilar cistern effacement. No CT evidence for an acute cortical infarction. No new site of hemorrhage. IMPRESSION: The size of the right thalamic hematoma and extent of associated edema/mass effect has not appreciably change from 02/27/2020. No new site of hemorrhage or evidence for an acute cortical infarction. No change in ventricular volume. Electronically signed by: ZACARIAS VÁSQUEZ MD (02/28/2020 2:29 PM) [id number]
[2020-02-28 18:29] VITALS: BP 106/73
[2020-02-28 23:15] VITALS: BP 131/83
[2020-02-29 03:34] VITALS: BP 120/83
[2020-02-29] MEDS: hydrALAZINE 20 MG/ML VIAL. IVP SCH ×6 (03:58→23:11)
[2020-02-29] MEDS: METOPROLOL TARTRATE 5 MG/5 ML VIAL. IVP SCH ×4 (05:01→23:11)
[2020-02-29] MEDS: INSULIN LISPRO 300 UNITS/3 ML VIAL. SQ SCH ×4 (05:01→23:12)
[2020-02-29 07:00] VITALS: BP 125/87
[2020-02-29] MEDS: IPRATRPIUM/ALBUTEROL 0.5/2.5MG 3 ML NEBU. NEB SCH ×4 (08:15→20:50)
[2020-02-29] MEDS: PANTOPRAZOLE IV PUSH 40 MG VIAL. IVP SCH (08:26)
[2020-02-29 10:24] LABS: HEMATOCRIT 40.2 % (39.0-53.0); HEMOGLOBIN 13.3 g/dL (13.0-17.5); RED BLOOD COUNT 4.46 x10^6/uL (4.30-5.70); RED CELL DISTRIBUTION WIDTH 13.8 % (11.5-14.5); WHITE BLOOD COUNT 12.2 x10^3/uL (4.0-11.0)
[2020-02-29 10:27] LABS: CALCIUM 8.2 mg/dL (8.5-10.1); CREATININE 0.7 mg/dL (0.7-1.3); GFR 113.5; POTASSIUM 3.7 mmol/L (3.5-5.1)
[2020-02-29 10:31] LABS: PROTHROMBIN TIME PATIENT 13.5 SEC (11.7-14.0)
[2020-02-29 11:00] VITALS: BP 130/79
--- NOTE | 2020-02-29 11:02 | PDOC ---
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 Intraventricular extension of hemorrhage filling much of the right lateral ventricle and extending downwards through the fourth ventricle.hematoma and associated edema exert mass effect on the foramen of Prieto and a portion of the third ventricle. dilatation of the right lateral ventricle temporal horn developing hydrocephalus. 02/13 ctRight frontal approach ventriculostomy . Stable ventricular configurati on. Stable right basal ganglia acute intraparenchymal hemorrhage with intraventricular extension. Mass effect with sulcal effacement and increased suprasellar cistern effacement. Acute hypoxic resp failure Prior old stroke Hyperlipidemia Tobacco abuse Dense left hemiparesis Hypernatremia Plan: will restart 1/2 NS contnue procalamine will try to have ST reeval now that patient seems more awake Continue with supportive measures Patient will certainly require placement patient stable for transfer to the floor failed swallow, he may benefit from a reassessment patient would most likely not do well with dobhoff tube sice he would most likely dislodged it due to the involuntary movements he has, will follow on ST abner History of Present Illness History of Present Illness 02/29/2020 PEG tube placement has been scheduled for Sunday Consents signed by family members More awake after withholding benzodiazepines yesterday evening Medically stable Nursing staff informed me that [facility] declined [facility] referral, case management to follow-up in the a.m. 02/28/2020 PEG tube placement has been scheduled for Sunday Consents signed by family members most likely can discharge after procedure to [facility] 02/27/2020 Patient unfortunately will require PEG tube We will request consent from next of kin Once we get consents will place a consult for GI No new events reported overnight 02/26/2020 Patient seems to be about the same, he is restless and requires mittens so he does nnot pull on lines and dobhoff tube He managed to disloge his tube for the 2nd time today. We will reassess in the am with the family and address goals of therapy will start Procalamine again in the mean time 02/25/2020 No acute events reported overnight, case discussed with nursing staff patient in no acute distress no complaints during my visit more awake today, will request reeval by ST 02/24/2020 Patient with no acute events reported overnight, patient failed swallow study will start procalamine reeval in the next few days Off Cardene drip transfer to floor when bed available 02/23/2020 Patient now extubated. Patient continues to do fairly well Still left-sided hemiparesis Laboratory data reviewed We will try to wean off Cardene drip Follow homemaking rehabilitation consultant recommendations 02/22/2020 Patient seen and examined in the ICU He remains about the same Can barely say 1 word Very sedated and obtunded Has mitts on for patient safety He is on a Cardene drip Has Precedex Also has IV Levaquin Chart reviewed Discussed with RN 02/21/2020 Patient seen and examined in the ICU He is about the same as yesterday makes eye contact tries to speak but I cannot understand him too much Discussed with RN Chart reviewed 02/20/2020 Patient seen and examined in the ICU He is a little more alert he made eye contact with me I asked him if he could hear me he clearly stated yes Discussed with RN Discussed with case repairer Chart reviewed next Discussed with respiratory therapy 02/19/2020 Patient seen and examined in the ICU Yesterday pulled out his ROUTE RIDER pressure monitor and we still have it out for now The CAT scan repeat of the head yesterday showed decrease size of the bleed I discussed the case with case repairer I reviewed the chart Discussed with RN He remains critically ill 02/18/2020 Patient seen and examined in the ICU He has mitts on but somehow was able to squeeze onto his ROUTE RIDER monitor tube and pulled out I discussed case with the case repairer and RN Chart reviewed 02/17/2020 Patient seen and examined in the ICU He is on BiPAP His daughter is present Discussed with RN Discussed with case management Chart reviewed Vitals Vitals Vital Signs Date Time Temp Pulse Resp B/P (MAP) Pulse Ox O2 Delivery O2 Flow Rate FiO2 02/29/20 08:27 90 125/87 02/29/20 08:17 99 Room Air 02/29/20 07:30 3.0 02/29/20 07:00 99.3 99.3 02/29/20 03:34 20 Physical Exam Physical Exam General: Other (Makes eye contact tries to talk but I cannot understand) Heart: Regular rate Lungs: Clear Abdomen: Normal bowel sounds Extremities: No cyanosis General: Cooperative, No acute distress Heart: Regular rate Lungs: Crackles Abdomen: Normal bowel sounds, No tenderness Extremities: No clubbing Skin: No rashes Labs LABS Laboratory Tests Test 02/28/20 11:12 02/28/20 17:29 02/28/20 23:12 02/29/20 04:56 Glucose (Fingerstick) 189 mg/dL (70-99) 208 mg/dL (70-99) 194 mg/dL (70-99) 236 mg/dL (70-99) Test 02/29/20 09:45 White Blood Count 12.2 x10^3/uL (4.0-11.0) Red Blood Count 4.46 x10^6/uL (4.30-5.70) Hemoglobin 13.3 g/dL (13.0-17.5) Hematocrit 40.2 % (39.0-53.0) Mean Corpuscular Volume 90 fL (79-100) Mean Corpuscular Hemoglobin 30 pg (25-35) Mean Corpuscular Hemoglobin Concent 33 g/dL (31-37) Red Cell Distribution Width 13.8 % (11.5-14.5) Platelet Count 122 x10^3/uL (140-400) Prothrombin Time 13.5 SEC (11.7-14.0) Prothromb Time International Ratio 1.1 (0.8-1.1) Sodium Level 140 mmol/L (136-145) Potassium Level 3.7 mmol/L (3.5-5.1) Chloride Level 106 mmol/L (98-107) Carbon Dioxide Level 26 mmol/L (21-32) Anion Gap 8 (6-14) Blood Urea Nitrogen 20 mg/dL (8-26) Creatinine 0.7 mg/dL (0.7-1.3) Estimated GFR (Cockcroft-Gault) 113.5 Glucose Level 201 mg/dL (70-99) Calcium Level 8.2 mg/dL (8.5-10.1) Assessment and Plan Assessmemt and Plan Problems Medical Problems: (1) Intraparenchymal hemorrhage of brain Status: Acute Comment Review of Relevant I have reviewed the following items faraz (where applicable) has been applied. Labs Laboratory Tests Test 02/27/20 11:30 02/27/20 16:38 02/27/20 21:46 02/28/20 04:00 Glucose (Fingerstick) 201 mg/dL (70-99) 247 mg/dL (70-99) 243 mg/dL (70-99) Sodium Level 143 mmol/L (136-145) Potassium Level 3.6 mmol/L (3.5-5.1) Chloride Level 111 mmol/L (98-107) Carbon Dioxide Level 25 mmol/L (21-32) Anion Gap 7 (6-14) Blood Urea Nitrogen 25 mg/dL (8-26) Creatinine 0.7 mg/dL (0.7-1.3) Estimated GFR (Cockcroft-Gault) 113.5 Glucose Level 260 mg/dL (70-99) Calcium Level 8.2 mg/dL (8.5-10.1) Test 02/28/20 11:12 02/28/20 17:29 02/28/20 23:12 02/29/20 04:56 Glucose (Fingerstick) 189 mg/dL (70-99) 208 mg/dL (70-99) 194 mg/dL (70-99) 236 mg/dL (70-99) Test 02/29/20 09:45 White Blood Count 12.2 x10^3/uL (4.0-11.0) Red Blood Count 4.46 x10^6/uL (4.30-5.70) Hemoglobin 13.3 g/dL (13.0-17.5) Hematocrit 40.2 % (39.0-53.0) Mean Corpuscular Volume 90 fL (79-100) Mean Corpuscular Hemoglobin 30 pg (25-35) Mean Corpuscular Hemoglobin Concent 33 g/dL (31-37) Red Cell Distribution Width 13.8 % (11.5-14.5) Platelet Count 122 x10^3/uL (140-400) Prothrombin Time 13.5 SEC (11.7-14.0) Prothromb Time International Ratio 1.1 (0.8-1.1) Sodium Level 140 mmol/L (136-145) Potassium Level 3.7 mmol/L (3.5-5.1) Chloride Level 106 mmol/L (98-107) Carbon Dioxide Level 26 mmol/L (21-32) Anion Gap 8 (6-14) Blood Urea Nitrogen 20 mg/dL (8-26) Creatinine 0.7 mg/dL (0.7-1.3) Estimated GFR (Cockcroft-Gault) 113.5 Glucose Level 201 mg/dL (70-99) Calcium Level 8.2 mg/dL (8.5-10.1) Laboratory Tests Test 02/28/20 11:12 02/28/20 17:29 02/28/20 23:12 02/29/20 04:56 Glucose (Fingerstick) 189 mg/dL (70-99) 208 mg/dL (70-99) 194 mg/dL (70-99) 236 mg/dL (70-99) Test 02/29/20 09:45 White Blood Count 12.2 x10^3/uL (4.0-11.0) Red Blood Count 4.46 x10^6/uL (4.30-5.70) Hemoglobin 13.3 g/dL (13.0-17.5) Hematocrit 40.2 % (39.0-53.0) Mean Corpuscular Volume 90 fL (79-100) Mean Corpuscular Hemoglobin 30 pg (25-35) Mean Corpuscular Hemoglobin Concent 33 g/dL (31-37) Red Cell Distribution Width 13.8 % (11.5-14.5) Platelet Count 122 x10^3/uL (140-400) Prothrombin Time 13.5 SEC (11.7-14.0) Prothromb Time International Ratio 1.1 (0.8-1.1) Sodium Level 140 mmol/L (136-145) Potassium Level 3.7 mmol/L (3.5-5.1) Chloride Level 106 mmol/L (98-107) Carbon Dioxide Level 26 mmol/L (21-32) Anion Gap 8 (6-14) Blood Urea Nitrogen 20 mg/dL (8-26) Creatinine 0.7 mg/dL (0.7-1.3) Estimated GFR (Cockcroft-Gault) 113.5 Glucose Level 201 mg/dL (70-99) Calcium Level 8.2 mg/dL (8.5-10.1) Medications Current Medications Nicardipine HCl 50 mg/Sodium Chloride 250 ml @ 12.5 mls/hr CONT PRN IV SEE I/O RECORD Last administered on 02/23/20at 09:50; Start 02/14/20 at 03:30; Stop 02/25/20 at 11:54; Status DC Ondansetron HCl (Zofran) 8 mg 1X ONCE IVP Last administered on 02/14/20at 03:48; Start 02/14/20 at 04:00; Stop 02/14/20 at 04:01; Status DC Metoclopramide HCl (Reglan Vial) 10 mg STK-MED ONCE .ROUTE ; Start 02/14/20 at 04:00; Stop 02/14/20 at 04:00; Status DC Diphenhydramine HCl (Benadryl) 50 mg STK-MED ONCE .ROUTE ; Start 02/14/20 at 04:02; Stop 02/14/20 at 04:02; Status DC Hydromorphone HCl (Dilaudid) 2 mg STK-MED ONCE .ROUTE ; Start 02/14/20 at 04:02; Stop 02/14/20 at 04:03; Status DC Lidocaine HCl (Lidocaine 1% 20ml Vial) 20 ml STK-MED ONCE .ROUTE ; Start 02/14/20 at 04:11; Stop 02/14/20 at 04:12; Status DC Ondansetron HCl (Zofran) 4 mg PRN Q8HRS PRN IV NAUSEA/VOMITING 1ST CHOICE; Start 02/14/20 at 04:45; Stop 02/15/20 at 04:44; Status DC Morphine Sulfate (Morphine Sulfate) 4 mg PRN Q2HR PRN IV SEVERE PAIN 7-10; Start 02/14/20 at 04:45; Stop 02/15/20 at 04:44; Status DC Rocuronium Falls (Zemuron) 100 mg 1X ONCE IV Last administered on 02/14/20at 04:56; Start 02/14/20 at 05:00; Stop 02/14/20 at 05:01; Status DC Etomidate (Amidate) 20 mg 1X ONCE IV Last administered on 02/14/20at 04:56; S tart 02/14/20 at 05:00; Stop 02/14/20 at 05:01; Status DC Fentanyl Citrate (Fentanyl 2ml Vial) 100 mcg 1X ONCE IVP Last administered on 02/14/20at 04:55; Start 02/14/20 at 05:00; Stop 02/14/20 at 05:01; Status DC Propofol (Diprivan) 200 mg STK-MED ONCE IV ; Start 02/14/20 at 05:02; Stop 02/14/20 at 05:03; Status DC Propofol 50 ml @ As Directed STK-MED ONCE IV ; Start 02/14/20 at 05:03; Stop 02/14/20 at 05:03; Status DC Propofol (Diprivan) 200 mg 1X ONCE IV ; Start 02/14/20 at 05:30; Stop 02/14/20 at 05:31; Status DC Vancomycin HCl 250 ml @ 250 mls/hr PREOP PRN PRN IV PREOP Last administered on 02/14/20at 06:48; Start 02/14/20 at 06:00; Stop 02/15/20 at 05:59; Status DC Propofol 100 ml @ 0 mls/hr CONT PRN IV SEE I/O RECORD Last administered on 02/14/20at 11:30; Start 02/14/20 at 06:30; Stop 02/25/20 at 11:51; Status DC Fentanyl Citrate (Fentanyl 2ml Vial) 50 mcg 1X ONCE IVP Last administered on 02/14/20at 06:48; Start 02/14/20 at 07:00; Stop 02/14/20 at 07:01; Status DC Lidocaine HCl (Xylocaine-Mpf 1% 2ml Vial) 2 ml STK-MED ONCE .ROUTE ; Start 02/14/20 at 06:43; Stop 02/14/20 at 06:43; Status DC Fentanyl Citrate (Fentanyl 2ml Vial) 50 mcg 1X ONCE IVP Last administered on 02/14/20at 07:23; Start 02/14/20 at 07:30; Stop 02/14/20 at 07:31; Status DC Fentanyl Citrate 30 ml @ 2.5 mls/hr CONT PRN IV SEE PROTOCOL Last administered on 02/15/20at 09:14; Start 02/14/20 at 07:30; Stop 02/25/20 at 11:51; Status DC Fentanyl Citrate (Fentanyl 2ml Vial) 25 mcg PRN Q1HR PRN IV SEE COMMENTS; Start 02/14/20 at 07:30; Stop 02/15/20 at 18:51; Status DC Fentanyl Citrate (Fentanyl 2ml Vial) 50 mcg PRN Q1HR PRN IV SEE COMMENTS; Start 02/14/20 at 07:30; Stop 02/15/20 at 18:51; Status DC Famotidine (Pepcid Vial) 20 mg BID IVP ; Start 02/14/20 at 21:00; Stop 02/14/20 at 16:18; Status DC Potassium Chloride/Dextrose/ Sod Cl 1,000 ml @ 50 mls/hr Q20H IV Last administered on 02/24/20at 00:16; Start 02/14/20 at 11:30; Stop 02/24/20 at 12:27; Status DC Pantoprazole Sodium (PROTONIX VIAL for IV PUSH) 40 mg DAILYAC IVP Last adm inistered on 02/29/20at 08:26; Start 02/15/20 at 07:30 Vancomycin HCl 1 gm/Sodium Chloride 250 ml @ 250 mls/hr Q12H IV Last adm inistered on 02/17/20at 04:35; Start 02/15/20 at 17:00; Stop 02/17/20 at 07:34; Status DC Vancomycin HCl (Vanco Per Pharmacy) 1 each PRN DAILY PRN MC SEE COMMENTS; Start 02/15/20 at 16:15; Stop 02/17/20 at 07:35; Status DC Fentanyl Citrate (Fentanyl 2ml Vial) 25 mcg Q1HR ONCE IV Last administered on 02/15/20at 18:54; Start 02/15/20 at 19:00; Stop 02/15/20 at 19:01; Status DC Fentanyl Citrate (Fentanyl 2ml Vial) 25 mcg PRN Q1HR PRN IVP SEVERE PAIN 7-10 Last administered on 02/24/20at 04:26; Start 02/15/20 at 22:30 Cefazolin Sodium/ Dextrose (Ancef 2gm Premix) 2 gm STK-MED ONCE IV ; Start 02/14/20 at 07:00; Stop 02/16/20 at 06:46; Status DC Dexamethasone Sodium Phosphate (Decadron) 4 mg Q6HRS IVP Last administered on 02/22/20at 12:04; Start 02/16/20 at 12:00; Stop 02/22/20 at 15:31; Status DC Dexamethasone Sodium Phosphate (Decadron) 4 mg 1X ONCE IVP Last administered on 02/16/20at 07:57; Start 02/16/20 at 08:00; Stop 02/16/20 at 08:01; Status DC Dexmedetomidine HCl 400 mcg/ Sodium Chloride 100 ml @ 0 mls/hr CONT PRN IV PER PROTOCOL Last administered on 02/21/20at 23:32; Start 02/16/20 at 08:30; Stop 02/25/20 at 11:51; Status DC Sodium Chloride 500 ml @ 500 mls/hr 1X PRN PRN IV SEE COMMENTS; Start 02/16/20 at 08:30 Atropine Sulfate (ATROPINE 0.5mg SYRINGE) 0.5 mg PRN Q5MIN PRN IV SEE COMMENTS; Start 02/16/20 at 08:30 Levofloxacin/ Dextrose 100 ml @ 100 mls/hr Q24H IV Last administered on 02/22/20at 12:03; Start 02/16/20 at 12:00; Stop 02/22/20 at 13:37; Status DC Albuterol/ Ipratropium (Duoneb) 3 ml RTQID NEB Last administered on 02/29/20at 08:15; Start 02/16/20 at 12:00 Lorazepam (Ativan Inj) 1 mg PRN Q2HRS PRN IVP ANXIETY / AGITATION Last administered on 02/28/20at 01:44; Start 02/18/20 at 09:00 Metoprolol Tartrate (Lopressor Vial) 5 mg Q6HRS IVP Last administered on 02/29/20at 05:01; Start 02/22/20 at 10:30 Hydralazine HCl (Apresoline Inj) 10 mg Q4HRS IVP Last administered on 02/29/20at 08:27; Start 02/23/20 at 10:15 Amino Acids/ Glycerin/ Electrolytes 1,000 ml @ 80 mls/hr [id number] IV Last administered on 02/26/20at 08:32; Start 02/24/20 at 08:00; Stop 02/26/20 at 17:07; Status DC Potassium Chloride/Dextrose/ Sod Cl 1,000 ml @ 50 mls/hr Q20H IV Last administered on 02/25/20at 09:12; Start 02/25/20 at 09:00; Stop 02/25/20 at 11:13; Status DC Insulin Human Lispro (HumaLOG) 0-5 UNITS Q6HRS SQ Last administered on 02/28/20at 09:03; Start 02/25/20 at 12:00 Dextrose (Dextrose 50%-Water Syringe) 12.5 gm PRN Q15MIN PRN IV SEE COMMENTS; Start 02/25/20 at 08:45 Dextrose 1,000 ml @ 50 mls/hr Q20H IV Last administered on 02/28/20at 00:56; Start 02/25/20 at 11:15; Stop 02/28/20 at 18:45; Status DC Dextrose/Sodium Chloride 1,000 ml @ 75 mls/hr 1X ONCE IV Last administered on 02/26/20at 20:21; Start 02/26/20 at 17:15; Stop 02/27/20 at 06:34; Status DC Amino Acids/ Glycerin/ Electrolytes 1,000 ml @ 80 mls/hr [id number] IV Last administered on 02/28/20at 23:13; Start 02/26/20 at 17:15 Active Scripts Active Reported Flomax (Tamsulosin Hcl) 0.4 Mg Cap.er.24h 1 Cap PO DAILY Vitals/I & O Vital Sign - Last 24 Hours 02/28/20 02/28/20 02/28/20 02/28/20 12:00 12:00 12:03 14:25 Temp 97.8 97.8 Pulse 90 90 94 Resp 20 B/P (MAP) 132/64 132/64 140/80 (100) Pulse Ox 94 O2 Delivery Room Air Room Air 02/28/20 02/28/20 02/28/20 02/28/20 15:47 16:09 17:28 18:29 Temp 98.4 98.4 Pulse 94 94 95 Resp 20 B/P (MAP) 140/80 140/80 106/73 (84) Pulse Ox 94 O2 Delivery Room Air Room Air 02/28/20 02/28/20 02/28/20 02/28/20 18:57 19:30 20:15 23:15 Temp 98.9 98.9 Pulse 95 99 Resp 18 B/P (MAP) 106/73 131/83 (99) Pulse Ox 96 94 O2 Delivery Room Air Room Air Room Air O2 Flow Rate 3.0 02/28/20 02/28/20 02/29/20 02/29/20 23:17 23:17 03:34 03:58 Temp 98.1 98.1 Pulse 99 99 95 95 Resp 20 B/P (MAP) 131/83 131/83 120/83 (95) 120/83 Pulse Ox 96 O2 Delivery Room Air 02/29/20 02/29/20 02/29/20 02/29/20 05:01 07:00 07:30 08:17 Temp 99.3 99.3 Pulse 95 90 B/P (MAP) 120/83 125/87 (100) Pulse Ox 97 99 O2 Delivery Room Air Room Air Room Air O2 Flow Rate 3.0 02/29/20 08:27 Pulse 90 B/P (MAP) 125/87 Intake and Output 02/28/20 02/28/20 02/29/20 15:00 23:00 07:00 Intake Total 0 ml 0 ml 960 ml Output Total 1050 ml 800 ml Balance 0 ml -1050 ml 160 ml Justicifation of Admission Dx: Justifications for Admission: Justification of Admission Dx: Yes Acute Hemorrhagic Stroke: Acute Hemorrhagic Stroke JADE CLAROS MD Feb 29, 2020 11:02
[2020-02-29] MEDS: AMINO AC 3%/ELECTROLYTE/GLYCER 1,000 ML IV SCH ×2 (11:45→22:32)
--- NOTE | 2020-02-29 13:17 | PDOC ---
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 He developed acute hydrocephalus and required an emergent EVD, then removed it 02/17. CT stable on 02/27 Acute respiratory failure, extubated. Dense left hemiparesis. Neurogenic dysphagia, keeps pulling out his Dobhoff Plan PEG on 03/01 No need for prophylactic anticonvulsants Subjective no complaints Objective Vital Signs Date Time Temp Pulse Resp B/P (MAP) Pulse Ox O2 Delivery O2 Flow Rate FiO2 02/29/20 12:04 Room Air 02/29/20 12:00 103 130/79 02/29/20 11:00 97.6 95 97.6 02/29/20 07:30 3.0 02/29/20 03:34 20 Intake and Output 02/29/20 06:59 Intake Total 960 ml Output Total 1850 ml Balance -890 ml Intake Oral 0 ml IV Total 960 ml Output Urine Total 1850 ml PHYSICAL EXAM More alert, knows name PERRL. EOMI. CN: no focal findings. Muscle tone: increased on left Muscle strength: Left hemiparesis DTR: 2+ Plantar reflex: extensor on the left Gait: not examined in bed. Sensory exam: no abnormal findings. No cerebellar signs elicited. Review of Relevant I have reviewed the following items faraz (where applicable) has been applied. Labs Laboratory Tests Test 02/27/20 16:38 02/27/20 21:46 02/28/20 04:00 02/28/20 11:12 Glucose (Fingerstick) 247 mg/dL (70-99) 243 mg/dL (70-99) 189 mg/dL (70-99) Sodium Level 143 mmol/L (136-145) Potassium Level 3.6 mmol/L (3.5-5.1) Chloride Level 111 mmol/L (98-107) Carbon Dioxide Level 25 mmol/L (21-32) Anion Gap 7 (6-14) Blood Urea Nitrogen 25 mg/dL (8-26) Creatinine 0.7 mg/dL (0.7-1.3) Estimated GFR (Cockcroft-Gault) 113.5 Glucose Level 260 mg/dL (70-99) Calcium Level 8.2 mg/dL (8.5-10.1) Test 02/28/20 17:29 02/28/20 23:12 02/29/20 04:56 02/29/20 09:45 Glucose (Fingerstick) 208 mg/dL (70-99) 194 mg/dL (70-99) 236 mg/dL (70-99) White Blood Count 12.2 x10^3/uL (4.0-11.0) Red Blood Count 4.46 x10^6/uL (4.30-5.70) Hemoglobin 13.3 g/dL (13.0-17.5) Hematocrit 40.2 % (39.0-53.0) Mean Corpuscular Volume 90 fL (79-100) Mean Corpuscular Hemoglobin 30 pg (25-35) Mean Corpuscular Hemoglobin Concent 33 g/dL (31-37) Red Cell Distribution Width 13.8 % (11.5-14.5) Platelet Count 122 x10^3/uL (140-400) Prothrombin Time 13.5 SEC (11.7-14.0) Prothromb Time International Ratio 1.1 (0.8-1.1) Sodium Level 140 mmol/L (136-145) Potassium Level 3.7 mmol/L (3.5-5.1) Chloride Level 106 mmol/L (98-107) Carbon Dioxide Level 26 mmol/L (21-32) Anion Gap 8 (6-14) Blood Urea Nitrogen 20 mg/dL (8-26) Creatinine 0.7 mg/dL (0.7-1.3) Estimated GFR (Cockcroft-Gault) 113.5 Glucose Level 201 mg/dL (70-99) Calcium Level 8.2 mg/dL (8.5-10.1) Test 02/29/20 11:23 Glucose (Fingerstick) 176 mg/dL (70-99) Laboratory Tests Test 02/28/20 17:29 02/28/20 23:12 02/29/20 04:56 02/29/20 09:45 Glucose (Fingerstick) 208 mg/dL (70-99) 194 mg/dL (70-99) 236 mg/dL (70-99) White Blood Count 12.2 x10^3/uL (4.0-11.0) Red Blood Count 4.46 x10^6/uL (4.30-5.70) Hemoglobin 13.3 g/dL (13.0-17.5) Hematocrit 40.2 % (39.0-53.0) Mean Corpuscular Volume 90 fL (79-100) Mean Corpuscular Hemoglobin 30 pg (25-35) Mean Corpuscular Hemoglobin Concent 33 g/dL (31-37) Red Cell Distribution Width 13.8 % (11.5-14.5) Platelet Count 122 x10^3/uL (140-400) Prothrombin Time 13.5 SEC (11.7-14.0) Prothromb Time International Ratio 1.1 (0.8-1.1) Sodium Level 140 mmol/L (136-145) Potassium Level 3.7 mmol/L (3.5-5.1) Chloride Level 106 mmol/L (98-107) Carbon Dioxide Level 26 mmol/L (21-32) Anion Gap 8 (6-14) Blood Urea Nitrogen 20 mg/dL (8-26) Creatinine 0.7 mg/dL (0.7-1.3) Estimated GFR (Cockcroft-Gault) 113.5 Glucose Level 201 mg/dL (70-99) Calcium Level 8.2 mg/dL (8.5-10.1) Test 02/29/20 11:23 Glucose (Fingerstick) 176 mg/dL (70-99) Medications Current Medications Nicardipine HCl 50 mg/Sodium Chloride 250 ml @ 12.5 mls/hr CONT PRN IV SEE I/O RECORD Last administered on 02/23/20at 09:50; Start 02/14/20 at 03:30; Stop 02/25/20 at 11:54; Status DC Ondansetron HCl (Zofran) 8 mg 1X ONCE IVP Last administered on 02/14/20at 03:48; Start 02/14/20 at 04:00; Stop 02/14/20 at 04:01; Status DC Metoclopramide HCl (Reglan Vial) 10 mg STK-MED ONCE .ROUTE ; Start 02/14/20 at 04:00; Stop 02/14/20 at 04:00; Status DC Diphenhydramine HCl (Benadryl) 50 mg STK-MED ONCE .ROUTE ; Start 02/14/20 at 04:02; Stop 02/14/20 at 04:02; Status DC Hydromorphone HCl (Dilaudid) 2 mg STK-MED ONCE .ROUTE ; Start 02/14/20 at 04:02; Stop 02/14/20 at 04:03; Status DC Lidocaine HCl (Lidocaine 1% 20ml Vial) 20 ml STK-MED ONCE .ROUTE ; Start 02/14/20 at 04:11; Stop 02/14/20 at 04:12; Status DC Ondansetron HCl (Zofran) 4 mg PRN Q8HRS PRN IV NAUSEA/VOMITING 1ST CHOICE; Start 02/14/20 at 04:45; Stop 02/15/20 at 04:44; Status DC Morphine Sulfate (Morphine Sulfate) 4 mg PRN Q2HR PRN IV SEVERE PAIN 7-10; Start 02/14/20 at 04:45; Stop 02/15/20 at 04:44; Status DC Rocuronium Nenana (Zemuron) 100 mg 1X ONCE IV Last administered on 02/14/20at 04:56; Start 02/14/20 at 05:00; Stop 02/14/20 at 05:01; Status DC Etomidate (Amidate) 20 mg 1X ONCE IV Last administered on 02/14/20at 04:56; Start 02/14/20 at 05:00; Stop 02/14/20 at 05:01; Status DC Fentanyl Citrate (Fentanyl 2ml Vial) 100 mcg 1X ONCE IVP Last administered on 02/14/20at 04:55; Start 02/14/20 at 05:00; Stop 02/14/20 at 05:01; Status DC Propofol (Diprivan) 200 mg STK-MED ONCE IV ; Start 02/14/20 at 05:02; Stop 02/14/20 at 05:03; Status DC Propofol 50 ml @ As Directed STK-MED ONCE IV ; Start 02/14/20 at 05:03; Stop 02/14/20 at 05:03; Status DC Propofol (Diprivan) 200 mg 1X ONCE IV ; Start 02/14/20 at 05:30; Stop 02/14/20 at 05:31; Status DC Vancomycin HCl 250 ml @ 250 mls/hr PREOP PRN PRN IV PREOP Last administered on 02/14/20at 06:48; Start 02/14/20 at 06:00; Stop 02/15/20 at 05:59; Status DC Propofol 100 ml @ 0 mls/hr CONT PRN IV SEE I/O RECORD Last administered on 02/14/20at 11:30; Start 02/14/20 at 06:30; Stop 02/25/20 at 11:51; Status DC Fentanyl Citrate (Fentanyl 2ml Vial) 50 mcg 1X ONCE IVP Last administered on 02/14/20at 06:48; Start 02/14/20 at 07:00; Stop 02/14/20 at 07:01; Status DC Lidocaine HCl (Xylocaine-Mpf 1% 2ml Vial) 2 ml STK-MED ONCE .ROUTE ; Start 02/14/20 at 06:43; Stop 02/14/20 at 06:43; Status DC Fentanyl Citrate (Fentanyl 2ml Vial) 50 mcg 1X ONCE IVP Last administered on 02/14/20at 07:23; Start 02/14/20 at 07:30; Stop 02/14/20 at 07:31; Status DC Fentanyl Citrate 30 ml @ 2.5 mls/hr CONT PRN IV SEE PROTOCOL Last administered on 02/15/20at 09:14; Start 02/14/20 at 07:30; Stop 02/25/20 at 11:51; Status DC Fentanyl Citrate (Fentanyl 2ml Vial) 25 mcg PRN Q1HR PRN IV SEE COMMENTS; Start 02/14/20 at 07:30; Stop 02/15/20 at 18:51; Status DC Fentanyl Citrate (Fentanyl 2ml Vial) 50 mcg PRN Q1HR PRN IV SEE COMMENTS; Start 02/14/20 at 07:30; Stop 02/15/20 at 18:51; Status DC Famotidine (Pepcid Vial) 20 mg BID IVP ; Start 02/14/20 at 21:00; Stop 02/14/20 at 16:18; Status DC Potassium Chloride/Dextrose/ Sod Cl 1,000 ml @ 50 mls/hr Q20H IV Last administered on 02/24/20at 00:16; Start 02/14/20 at 11:30; Stop 02/24/20 at 12:27; Status DC Pantoprazole Sodium (PROTONIX VIAL for IV PUSH) 40 mg DAILYAC IVP Last administered on 02/29/20at 08:26; Start 02/15/20 at 07:30 Vancomycin HCl 1 gm/Sodium Chloride 250 ml @ 250 mls/hr Q12H IV Last administered on 02/17/20at 04:35; Start 02/15/20 at 17:00; Stop 02/17/20 at 07:34; Status DC Vancomycin HCl (Vanco Per Pharmacy) 1 each PRN DAILY PRN MC SEE COMMENTS; Start 02/15/20 at 16:15; Stop 02/17/20 at 07:35; Status DC Fentanyl Citrate (Fentanyl 2ml Vial) 25 mcg Q1HR ONCE IV Last administered on 02/15/20at 18:54; Start 02/15/20 at 19:00; Stop 02/15/20 at 19:01; Status DC Fentanyl Citrate (Fentanyl 2ml Vial) 25 mcg PRN Q1HR PRN IVP SEVERE PAIN 7-10 Last administered on 02/24/20at 04:26; Start 02/15/20 at 22:30 Cefazolin Sodium/ Dextrose (Ancef 2gm Premix) 2 gm STK-MED ONCE IV ; Start 02/14/20 at 07:00; Stop 02/16/20 at 06:46; Status DC Dexamethasone Sodium Phosphate (Decadron) 4 mg Q6HRS IVP Last administered on 02/22/20at 12:04; Start 02/16/20 at 12:00; Stop 02/22/20 at 15:31; Status DC Dexamethasone Sodium Phosphate (Decadron) 4 mg 1X ONCE IVP Last administered on 02/16/20at 07:57; Start 02/16/20 at 08:00; Stop 02/16/20 at 08:01; Status DC Dexmedetomidine HCl 400 mcg/ Sodium Chloride 100 ml @ 0 mls/hr CONT PRN IV PER PROTOCOL Last administered on 02/21/20at 23:32; Start 02/16/20 at 08:30; Stop 02/25/20 at 11:51; Status DC Sodium Chloride 500 ml @ 500 mls/hr 1X PRN PRN IV SEE COMMENTS; Start 02/16/20 at 08:30 Atropine Sulfate (ATROPINE 0.5mg SYRINGE) 0.5 mg PRN Q5MIN PRN IV SEE COMMENTS; Start 02/16/20 at 08:30 Levofloxacin/ Dextrose 100 ml @ 100 mls/hr Q24H IV Last administered on 02/22/20at 12:03; Start 02/16/20 at 12:00; Stop 02/22/20 at 13:37; Status DC Albuterol/ Ipratropium (Duoneb) 3 ml RTQID NEB Last administered on 02/29/20at 1 2:03; Start 02/16/20 at 12:00 Lorazepam (Ativan Inj) 1 mg PRN Q2HRS PRN IVP ANXIETY / AGITATION Last administered on 02/28/20at 01:44; Start 02/18/20 at 09:00 Metoprolol Tartrate (Lopressor Vial) 5 mg Q6HRS IVP Last administered on 02/29/20at 11:45; Start 02/22/20 at 10:30 Hydralazine HCl (Apresoline Inj) 10 mg Q4HRS IVP Last administered on 02/29/20at 08:27; Start 02/23/20 at 10:15 Amino Acids/ Glycerin/ Electrolytes 1,000 ml @ 80 mls/hr [id number] IV Last administered on 02/26/20at 08:32; Start 02/24/20 at 08:00; Stop 02/26/20 at 17:07; Status DC Potassium Chloride/Dextrose/ Sod Cl 1,000 ml @ 50 mls/hr Q20H IV Last administered on 02/25/20at 09:12; Start 02/25/20 at 09:00; Stop 02/25/20 at 11:13; Status DC Insulin Human Lispro (HumaLOG) 0-5 UNITS Q6HRS SQ Last administered on 02/28/20at 09:03; Start 02/25/20 at 12:00 Dextrose (Dextrose 50%-Water Syringe) 12.5 gm PRN Q15MIN PRN IV SEE COMMENTS; Start 02/25/20 at 08:45 Dextrose 1,000 ml @ 50 mls/hr Q20H IV Last administered on 02/28/20at 00:56; Start 02/25/20 at 11:15; Stop 02/28/20 at 18:45; Status DC Dextrose/Sodium Chloride 1,000 ml @ 75 mls/hr 1X ONCE IV Last administered on 02/26/20at 20:21; Start 02/26/20 at 17:15; Stop 02/27/20 at 06:34; Status DC Amino Acids/ Glycerin/ Electrolytes 1,000 ml @ 80 mls/hr [id number] IV Last administered on 02/29/20at 11:45; Start 02/26/20 at 17:15 Active Scripts Active Reported Flomax (Tamsulosin Hcl) 0.4 Mg Cap.er.24h 1 Cap PO DAILY Vitals/I & O Vital Sign - Last 24 Hours 02/28/20 02/28/20 02/28/20 02/28/20 14:25 15:47 16:09 17:28 Temp 97.8 97.8 Pulse 94 94 94 Resp 20 B/P (MAP) 140/80 (100) 140/80 140/80 Pulse Ox 94 O2 Delivery Room Air Room Air 02/28/20 02/28/20 02/28/20 02/28/20 18:29 18:57 19:30 20:15 Temp 98.4 98.4 Pulse 95 95 Resp 20 B/P (MAP) 106/73 (84) 106/73 Pulse Ox 94 96 O2 Delivery Room Air Room Air Room Air O2 Flow Rate 3.0 02/28/20 02/28/20 02/28/20 02/29/20 23:15 23:17 23:17 03:34 Temp 98.9 98.1 98.9 98.1 Pulse 99 99 99 95 Resp 18 20 B/P (MAP) 131/83 (99) 131/83 131/83 120/83 (95) Pulse Ox 94 96 O2 Delivery Room Air Room Air 02/29/20 02/29/20 02/29/20 02/29/20 03:58 05:01 07:00 07:30 Temp 99.3 99.3 Pulse 95 95 90 B/P (MAP) 120/83 120/83 125/87 (100) Pulse Ox 97 O2 Delivery Room Air Room Air O2 Flow Rate 3.0 02/29/20 02/29/20 02/29/20 02/29/20 08:17 08:27 11:00 11:45 Temp 97.6 97.6 Pulse 90 103 103 B/P (MAP) 125/87 130/79 (96) 130/79 Pulse Ox 99 95 O2 Delivery Room Air Room Air 02/29/20 02/29/20 12:00 12:04 Pulse 103 B/P (MAP) 130/79 O2 Delivery Room Air Intake and Output 02/28/20 02/28/20 02/29/20 14:59 22:59 06:59 Intake Total 0 ml 0 ml 960 ml Output Total 1050 ml 800 ml Balance 0 ml -1050 ml [address] head without contrast INDICATION: Altered mental status. Follow-up intracranial hemorrhage. COMPARISON: 02/27/2020 TECHNIQUE: Axial CT imaging through the head without the use of intravenous contrast. Sagittal and coronal reformats were obtained. One or more of the following individualized dose reduction techniques were utilized for this examination: 1. Automated exposure control 2. Adjustment of the mA and/or kV according to patient size 3. Use of iterative reconstruction technique. FINDINGS: Redemonstrated right thalamic hematoma with intraventricular extension and surrounding parenchymal edema. The extent of mass effect and volume of hemorrhage has not significantly changed in the interim. Unchanged configuration of the lateral and third ventricles. No newly seen basilar cistern effacement. No CT evidence for an acute cortical infarction. No new site of hemorrhage. IMPRESSION: The size of the right thalamic hematoma and extent of associated edema/mass effect has not appreciably change from 02/27/2020. No new site of hemorrhage or evidence for an acute cortical infarction. No change in ventricular volume. Justicifation of Admission Dx: Justifications for Admission: Justification of Admission Dx: Yes Acute Hemorrhagic Stroke: Acute Hemorrhagic Stroke TEE FRANCIS MD Feb 29, 2020 13:17
[2020-02-29 15:00] VITALS: BP 132/85
[2020-02-29 19:00] VITALS: BP 150/80
[2020-02-29 23:54] VITALS: BP 123/67
--- NOTE | 2020-03-01 00:56 | NUR ---
Pt agitated. Biting the air and trying to get his mitt off. Ativan given. Will continue to monitor.
[2020-03-01 03:01] VITALS: BP 129/73
[2020-03-01] MEDS: hydrALAZINE 20 MG/ML VIAL. IVP SCH ×6 (03:29→22:57)
[2020-03-01] MEDS: METOPROLOL TARTRATE 5 MG/5 ML VIAL. IVP SCH ×5 (04:53→23:45)
[2020-03-01] MEDS: INSULIN LISPRO 300 UNITS/3 ML VIAL. SQ SCH ×4 (05:10→22:58)
[2020-03-01 07:00] VITALS: BP 131/72
[2020-03-01] MEDS: IPRATRPIUM/ALBUTEROL 0.5/2.5MG 3 ML NEBU. NEB SCH ×4 (07:23→20:04)
--- NOTE | 2020-03-01 09:30 | PDOC ---
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 He developed acute hydrocephalus and required an emergent EVD, then removed it 02/17. CT stable on 02/27 Acute respiratory failure, extubated. Dense left hemiparesis. Neurogenic dysphagia, keeps pulling out his [place] Plan PEG today No need for prophylactic anticonvulsants Subjective None Objective Vital Signs Date Time Temp Pulse Resp B/P (MAP) Pulse Ox O2 Delivery O2 Flow Rate FiO2 03/01/20 07:50 Room Air 3.0 03/01/20 07:30 96 03/01/20 07:00 99.0 88 20 131/72 (91) 99.0 Intake and Output 03/01/20 06:59 Intake Total 960 ml Output Total 1900 ml Balance -940 ml Intake Oral 0 ml IV Total 960 ml Output Urine Total 1900 ml PHYSICAL EXAM Sleepy, rouses slightly to voice PERRL. EOMI. CN: no focal findings. Muscle tone: increased on left Muscle strength: Left hemiparesis DTR: 2+ Plantar reflex: extensor on the left Gait: not examined in bed. Sensory exam: no abnormal findings. No cerebellar signs elicited. Review of Relevant I have reviewed the following items faraz (where applicable) has been applied. Labs Laboratory Tests Test 02/28/20 11:12 02/28/20 17:29 02/28/20 23:12 02/29/20 04:56 Glucose (Fingerstick) 189 mg/dL (70-99) 208 mg/dL (70-99) 194 mg/dL (70-99) 236 mg/dL (70-99) Test 02/29/20 09:45 02/29/20 11:23 02/29/20 16:37 02/29/20 23:08 White Blood Count 12.2 x10^3/uL (4.0-11.0) Red Blood Count 4.46 x10^6/uL (4.30-5.70) Hemoglobin 13.3 g/dL (13.0-17.5) Hematocrit 40.2 % (39.0-53.0) Mean Corpuscular Volume 90 fL (79-100) Mean Corpuscular Hemoglobin 30 pg (25-35) Mean Corpuscular Hemoglobin Concent 33 g/dL (31-37) Red Cell Distribution Width 13.8 % (11.5-14.5) Platelet Count 122 x10^3/uL (140-400) Prothrombin Time 13.5 SEC (11.7-14.0) Prothromb Time International Ratio 1.1 (0.8-1.1) Sodium Level 140 mmol/L (136-145) Potassium Level 3.7 mmol/L (3.5-5.1) Chloride Level 106 mmol/L (98-107) Carbon Dioxide Level 26 mmol/L (21-32) Anion Gap 8 (6-14) Blood Urea Nitrogen 20 mg/dL (8-26) Creatinine 0.7 mg/dL (0.7-1.3) Estimated GFR (Cockcroft-Gault) 113.5 Glucose Level 201 mg/dL (70-99) Calcium Level 8.2 mg/dL (8.5-10.1) Glucose (Fingerstick) 176 mg/dL (70-99) 208 mg/dL (70-99) 120 mg/dL (70-99) Test 03/01/20 04:57 Glucose (Fingerstick) 170 mg/dL (70-99) Laboratory Tests Test 02/29/20 09:45 02/29/20 11:23 02/29/20 16:37 02/29/20 23:08 White Blood Count 12.2 x10^3/uL (4.0-11.0) Red Blood Count 4.46 x10^6/uL (4.30-5.70) Hemoglobin 13.3 g/dL (13.0-17.5) Hematocrit 40.2 % (39.0-53.0) Mean Corpuscular Volume 90 fL (79-100) Mean Corpuscular Hemoglobin 30 pg (25-35) Mean Corpuscular Hemoglobin Concent 33 g/dL (31-37) Red Cell Distribution Width 13.8 % (11.5-14.5) Platelet Count 122 x10^3/uL (140-400) Prothrombin Time 13.5 SEC (11.7-14.0) Prothromb Time International Ratio 1.1 (0.8-1.1) Sodium Level 140 mmol/L (136-145) Potassium Level 3.7 mmol/L (3.5-5.1) Chloride Level 106 mmol/L (98-107) Carbon Dioxide Level 26 mmol/L (21-32) Anion Gap 8 (6-14) Blood Urea Nitrogen 20 mg/dL (8-26) Creatinine 0.7 mg/dL (0.7-1.3) Estimated GFR (Cockcroft-Gault) 113.5 Glucose Level 201 mg/dL (70-99) Calcium Level 8.2 mg/dL (8.5-10.1) Glucose (Fingerstick) 176 mg/dL (70-99) 208 mg/dL (70-99) 120 mg/dL (70-99) Test 03/01/20 04:57 Glucose (Fingerstick) 170 mg/dL (70-99) Medications Current Medications Nicardipine HCl 50 mg/Sodium Chloride 250 ml @ 12.5 mls/hr CONT PRN IV SEE I/O RECORD Last administered on 02/23/20at 09:50; Start 02/14/20 at 03:30; Stop 02/25/20 at 11:54; Status DC Ondansetron HCl (Zofran) 8 mg 1X ONCE IVP Last administered on 02/14/20at 03:48; Start 02/14/20 at 04:00; Stop 02/14/20 at 04:01; Status DC Metoclopramide HCl (Reglan Vial) 10 mg STK-MED ONCE .ROUTE ; Start 02/14/20 at 04:00; Stop 02/14/20 at 04:00; Status DC Diphenhydramine HCl (Benadryl) 50 mg STK-MED ONCE .ROUTE ; Start 02/14/20 at 04:02; Stop 02/14/20 at 04:02; Status DC Hydromorphone HCl (Dilaudid) 2 mg STK-MED ONCE .ROUTE ; Start 02/14/20 at 04:02; Stop 02/14/20 at 04:03; Status DC Lidocaine HCl (Lidocaine 1% 20ml Vial) 20 ml STK-MED ONCE .ROUTE ; Start 02/14/20 at 04:11; Stop 02/14/20 at 04:12; Status DC Ondansetron HCl (Zofran) 4 mg PRN Q8HRS PRN IV NAUSEA/VOMITING 1ST CHOICE; Start 02/14/20 at 04:45; Stop 02/15/20 at 04:44; Status DC Morphine Sulfate (Morphine Sulfate) 4 mg PRN Q2HR PRN IV SEVERE PAIN 7-10; Start 02/14/20 at 04:45; Stop 02/15/20 at 04:44; Status DC Rocuronium [place] (Zemuron) 100 mg 1X ONCE IV Last administered on 02/14/20at 04:56; Start 02/14/20 at 05:00; Stop 02/14/20 at 05:01; Status DC Etomidate (Amidate) 20 mg 1X ONCE IV Last administered on 02/14/20at 04:56; Start 02/14/20 at 05:00; Stop 02/14/20 at 05:01; Status DC Fentanyl Citrate (Fentanyl 2ml Vial) 100 mcg 1X ONCE IVP Last administered on 02/14/20at 04:55; Start 02/14/20 at 05:00; Stop 02/14/20 at 05:01; Status DC Propofol (Diprivan) 200 mg STK-MED ONCE IV ; Start 02/14/20 at 05:02; Stop 02/14/20 at 05:03; Status DC Propofol 50 ml @ As Directed STK-MED ONCE IV ; Start 02/14/20 at 05:03; Stop 02/14/20 at 05:03; Status DC Propofol (Diprivan) 200 mg 1X ONCE IV ; Start 02/14/20 at 05:30; Stop 02/14/20 at 05:31; Status DC Vancomycin HCl 250 ml @ 250 mls/hr PREOP PRN PRN IV PREOP Last administered on 02/14/20at 06:48; Start 02/14/20 at 06:00; Stop 02/15/20 at 05:59; Status DC Propofol 100 ml @ 0 mls/hr CONT PRN IV SEE I/O RECORD Last administered on 02/14/20at 11:30; Start 02/14/20 at 06:30; Stop 02/25/20 at 11:51; Status DC Fentanyl Citrate (Fentanyl 2ml Vial) 50 mcg 1X ONCE IVP Last administered on 02/14/20at 06:48; Start 02/14/20 at 07:00; Stop 02/14/20 at 07:01; Status DC Lidocaine HCl (Xylocaine-Mpf 1% 2ml Vial) 2 ml STK-MED ONCE .ROUTE ; Start 02/14/20 at 06:43; Stop 02/14/20 at 06:43; Status DC Fentanyl Citrate (Fentanyl 2ml Vial) 50 mcg 1X ONCE IVP Last administered on 02/14/20at 07:23; Start 02/14/20 at 07:30; Stop 02/14/20 at 07:31; Status DC Fentanyl Citrate 30 ml @ 2.5 mls/hr CONT PRN IV SEE PROTOCOL Last administered on 02/15/20at 09:14; Start 02/14/20 at 07:30; Stop 02/25/20 at 11:51; Status DC Fentanyl Citrate (Fentanyl 2ml Vial) 25 mcg PRN Q1HR PRN IV SEE COMMENTS; Start 02/14/20 at 07:30; Stop 02/15/20 at 18:51; Status DC Fentanyl Citrate (Fentanyl 2ml Vial) 50 mcg PRN Q1HR PRN IV SEE COMMENTS; Start 02/14/20 at 07:30; Stop 02/15/20 at 18:51; Status DC Famotidine (Pepcid Vial) 20 mg BID IVP ; Start 02/14/20 at 21:00; Stop 02/14/20 at 16:18; Status DC Potassium Chloride/Dextrose/ Sod Cl 1,000 ml @ 50 mls/hr Q20H IV Last administered on 02/24/20at 00:16; Start 02/14/20 at 11:30; Stop 02/24/20 at 12:27; Status DC Pantoprazole Sodium (PROTONIX VIAL for IV PUSH) 40 mg DAILYAC IVP Last administered on 02/29/20at 08:26; Start 02/15/20 at 07:30 Vancomycin HCl 1 gm/Sodium Chloride 250 ml @ 250 mls/hr Q12H IV Last administered on 02/17/20at 04:35; Start 02/15/20 at 17:00; Stop 02/17/20 at 07:34; Status DC Vancomycin HCl (Vanco Per Pharmacy) 1 each PRN DAILY PRN MC SEE COMMENTS; Start 02/15/20 at 16:15; Stop 02/17/20 at 07:35; Status DC Fentanyl Citrate (Fentanyl 2ml Vial) 25 mcg Q1HR ONCE IV Last administered on 02/15/20at 18:54; Start 02/15/20 at 19:00; Stop 02/15/20 at 19:01; Status DC Fentanyl Citrate (Fentanyl 2ml Vial) 25 mcg PRN Q1HR PRN IVP SEVERE PAIN 7-10 Last administered on 02/24/20at 04:26; Start 02/15/20 at 22:30 Cefazolin Sodium/ Dextrose (Ancef 2gm Premix) 2 gm STK-MED ONCE IV ; Start 02/14/20 at 07:00; Stop 02/16/20 at 06:46; Status DC Dexamethasone Sodium Phosphate (Decadron) 4 mg Q6HRS IVP Last administered on 02/22/20at 12:04; Start 02/16/20 at 12:00; Stop 02/22/20 at 15:31; Status DC Dexamethasone Sodium Phosphate (Decadron) 4 mg 1X ONCE IVP Last administered on 02/16/20at 07:57; Start 02/16/20 at 08:00; Stop 02/16/20 at 08:01; Status DC Dexmedetomidine HCl 400 mcg/ Sodium Chloride 100 ml @ 0 mls/hr CONT PRN IV PER PROTOCOL Last administered on 02/21/20at 23:32; Start 02/16/20 at 08:30; Stop 02/25/20 at 11:51; Status DC Sodium Chloride 500 ml @ 500 mls/hr 1X PRN PRN IV SEE COMMENTS; Start 02/16/20 at 08:30 Atropine Sulfate (ATROPINE 0.5mg SYRINGE) 0.5 mg PRN Q5MIN PRN IV SEE COMMENTS; Start 02/16/20 at 08:30 Levofloxacin/ Dextrose 100 ml @ 100 mls/hr Q24H IV Last administered on 02/22/20at 12:03; Start 02/16/20 at 12:00; Stop 02/22/20 at 13:37; Status DC Albuterol/ Ipratropium (Duoneb) 3 ml RTQID NEB Last administered on 03/01/20at 07:23; Start 02/16/20 at 12:00 Lorazepam (Ativan Inj) 1 mg PRN Q2HRS PRN IVP ANXIETY / AGITATION Last administered on 03/01/20at 00:56; Start 02/18/20 at 09:00 Metoprolol Tartrate (Lopressor Vial) 5 mg Q6HRS IVP Last administered on 03/01/20at 04:53; Start 02/22/20 at 10:30 Hydralazine HCl (Apresoline Inj) 10 mg Q4HRS IVP Last administered on 02/29/20at 16:15; Start 02/23/20 at 10:15 Amino Acids/ Glycerin/ Electrolytes 1,000 ml @ 80 mls/hr [id number] IV Last administered on 02/26/20at 08:32; Start 02/24/20 at 08:00; Stop 02/26/20 at 17:07; Status DC Potassium Chloride/Dextrose/ Sod Cl 1,000 ml @ 50 mls/hr Q20H IV Last administered on 02/25/20at 09:12; Start 02/25/20 at 09:00; Stop 02/25/20 at 11:13; Status DC Insulin Human Lispro (HumaLOG) 0-5 UNITS Q6HRS SQ Last administered on 02/29/20at 17:55; Start 02/25/20 at 12:00 Dextrose (Dextrose 50%-Water Syringe) 12.5 gm PRN Q15MIN PRN IV SEE COMMENTS; Start 02/25/20 at 08:45 Dextrose 1,000 ml @ 50 mls/hr Q20H IV Last administered on 02/28/20at 00:56; Start 02/25/20 at 11:15; Stop 02/28/20 at 18:45; Status DC Dextrose/Sodium Chloride 1,000 ml @ 75 mls/hr 1X ONCE IV Last administered on 02/26/20at 20:21; Start 02/26/20 at 17:15; Stop 02/27/20 at 06:34; Status DC Amino Acids/ Glycerin/ Electrolytes 1,000 ml @ 80 mls/hr [id number] IV Last administered on 02/29/20at 22:32; Start 02/26/20 at 17:15 Levofloxacin/ Dextrose 50 ml @ 50 mls/hr 1X ONCE IV ; Start 03/01/20 at 12:00; Stop 03/01/20 at 12:59 Active Scripts Active Reported Flomax (Tamsulosin Hcl) 0.4 Mg Cap.er.24h 1 Cap PO DAILY Vitals/I & O Vital Sign - Last 24 Hours 02/29/20 02/29/20 02/29/20 02/29/20 11:00 11:45 12:00 12:04 Temp 97.6 97.6 Pulse 103 103 103 B/P (MAP) 130/79 (96) 130/79 130/79 Pulse Ox 95 O2 Delivery Room Air Room Air 02/29/20 02/29/20 02/29/20 02/29/20 15:00 15:48 16:15 17:48 Temp 99.4 99.4 Pulse 94 94 94 B/P (MAP) 132/85 (101) 132/85 132/85 Pulse Ox 96 O2 Delivery Room Air Room Air 02/29/20 02/29/20 02/29/20 02/29/20 19:00 19:13 20:00 20:51 Temp 99.1 99.1 Pulse 88 88 B/P (MAP) 150/80 (103) 150/80 Pulse Ox 98 O2 Delivery Room Air Room Air Room Air O2 Flow Rate 3.0 02/29/20 02/29/20 03/01/20 03/01/20 23:11 23:54 03:01 03:29 Temp 99.2 100.0 99.2 100.0 Pulse 87 82 90 90 Resp 18 19 B/P (MAP) 123/67 123/67 (85) 129/73 (91) 129/73 Pulse Ox 98 99 O2 Delivery Room Air Room Air 03/01/20 03/01/20 03/01/20 03/01/20 03:30 04:53 07:00 07:30 Temp 99.1 99.0 99.1 99.0 Pulse 90 88 Resp 20 B/P (MAP) 129/73 131/72 (91) Pulse Ox 96 96 O2 Delivery Room Air Room Air 03/01/20 07:50 O2 Delivery Room Air O2 Flow Rate 3.0 Intake and Output 02/29/20 02/29/20 03/01/20 14:59 22:59 06:59 Intake Total 0 ml 960 ml Output Total 850 ml 350 ml 700 ml Balance -850 ml -350 ml 260 ml Justicifation of Admission Dx: Justifications for Admission: Justification of Admission Dx: Yes Acute Hemorrhagic Stroke: Acute Hemorrhagic Stroke TEE FRANCIS MD Mar 01, 2020 09:30
[2020-03-01] MEDS: PANTOPRAZOLE IV PUSH 40 MG VIAL. IVP SCH (09:39)
--- NOTE | 2020-03-01 09:46 | PDOC ---
PROGRESS NOTES Date of Service DATE: 03/01/20 TIME: 09:43 Subjective Subjective No new problems. Objective Objective Vital Signs Date Time Temp Pulse Resp B/P (MAP) Pulse Ox O2 Delivery O2 Flow Rate FiO2 03/01/20 07:50 Room Air 3.0 03/01/20 07:30 96 03/01/20 07:00 99.0 88 20 131/72 (91) 99.0 Intake and Output 03/01/20 07:00 Intake Total 960 ml Output Total 1900 ml Balance -940 ml Intake Oral 0 ml IV Total 960 ml Output Urine Total 1900 ml Physical Exam Physical Exam He is resting comfortably supine in bed and no change with his left hemiplegia. Assessment Assessment Problems Medical Problems: (1) Intraparenchymal hemorrhage of brain Status: Acute Plan Plan of Care Agree with plans for PEG placement. Comment Review of Relevant I have reviewed the following items faraz (where applicable) has been applied. Labs Laboratory Tests Test 02/28/20 11:12 02/28/20 17:29 02/28/20 23:12 02/29/20 04:56 Glucose (Fingerstick) 189 mg/dL (70-99) 208 mg/dL (70-99) 194 mg/dL (70-99) 236 mg/dL (70-99) Test 02/29/20 09:45 02/29/20 11:23 02/29/20 16:37 02/29/20 23:08 White Blood Count 12.2 x10^3/uL (4.0-11.0) Red Blood Count 4.46 x10^6/uL (4.30-5.70) Hemoglobin 13.3 g/dL (13.0-17.5) Hematocrit 40.2 % (39.0-53.0) Mean Corpuscular Volume 90 fL (79-100) Mean Corpuscular Hemoglobin 30 pg (25-35) Mean Corpuscular Hemoglobin Concent 33 g/dL (31-37) Red Cell Distribution Width 13.8 % (11.5-14.5) Platelet Count 122 x10^3/uL (140-400) Prothrombin Time 13.5 SEC (11.7-14.0) Prothromb Time International Ratio 1.1 (0.8-1.1) Sodium Level 140 mmol/L (136-145) Potassium Level 3.7 mmol/L (3.5-5.1) Chloride Level 106 mmol/L (98-107) Carbon Dioxide Level 26 mmol/L (21-32) Anion Gap 8 (6-14) Blood Urea Nitrogen 20 mg/dL (8-26) Creatinine 0.7 mg/dL (0.7-1.3) Estimated GFR (Cockcroft-Gault) 113.5 Glucose Level 201 mg/dL (70-99) Calcium Level 8.2 mg/dL (8.5-10.1) Glucose (Fingerstick) 176 mg/dL (70-99) 208 mg/dL (70-99) 120 mg/dL (70-99) Test 03/01/20 04:57 Glucose (Fingerstick) 170 mg/dL (70-99) Laboratory Tests Test 02/29/20 09:45 02/29/20 11:23 02/29/20 16:37 02/29/20 23:08 White Blood Count 12.2 x10^3/uL (4.0-11.0) Red Blood Count 4.46 x10^6/uL (4.30-5.70) Hemoglobin 13.3 g/dL (13.0-17.5) Hematocrit 40.2 % (39.0-53.0) Mean Corpuscular Volume 90 fL (79-100) Mean Corpuscular Hemoglobin 30 pg (25-35) Mean Corpuscular Hemoglobin Concent 33 g/dL (31-37) Red Cell Distribution Width 13.8 % (11.5-14.5) Platelet Count 122 x10^3/uL (140-400) Prothrombin Time 13.5 SEC (11.7-14.0) Prothromb Time International Ratio 1.1 (0.8-1.1) Sodium Level 140 mmol/L (136-145) Potassium Level 3.7 mmol/L (3.5-5.1) Chloride Level 106 mmol/L (98-107) Carbon Dioxide Level 26 mmol/L (21-32) Anion Gap 8 (6-14) Blood Urea Nitrogen 20 mg/dL (8-26) Creatinine 0.7 mg/dL (0.7-1.3) Estimated GFR (Cockcroft-Gault) 113.5 Glucose Level 201 mg/dL (70-99) Calcium Level 8.2 mg/dL (8.5-10.1) Glucose (Fingerstick) 176 mg/dL (70-99) 208 mg/dL (70-99) 120 mg/dL (70-99) Test 03/01/20 04:57 Glucose (Fingerstick) 170 mg/dL (70-99) Medications Current Medications Nicardipine HCl 50 mg/Sodium Chloride 250 ml @ 12.5 mls/hr CONT PRN IV SEE I/O RECORD Last administered on 02/23/20at 09:50; Start 02/14/20 at 03:30; Stop 02/25/20 at 11:54; Status DC Ondansetron HCl (Zofran) 8 mg 1X ONCE IVP Last administered on 02/14/20at 03:48; Start 02/14/20 at 04:00; Stop 02/14/20 at 04:01; Status DC Metoclopramide HCl (Reglan Vial) 10 mg STK-MED ONCE .ROUTE ; Start 02/14/20 at 04:00; Stop 02/14/20 at 04:00; Status DC Diphenhydramine HCl (Benadryl) 50 mg STK-MED ONCE .ROUTE ; Start 02/14/20 at 04:02; Stop 02/14/20 at 04:02; Status DC Hydromorphone HCl (Dilaudid) 2 mg STK-MED ONCE .ROUTE ; Start 02/14/20 at 04:02; Stop 02/14/20 at 04:03; Status DC Lidocaine HCl (Lidocaine 1% 20ml Vial) 20 ml STK-MED ONCE .ROUTE ; Start 02/14/20 at 04:11; Stop 02/14/20 at 04:12; Status DC Ondansetron HCl (Zofran) 4 mg PRN Q8HRS PRN IV NAUSEA/VOMITING 1ST CHOICE; Start 02/14/20 at 04:45; Stop 02/15/20 at 04:44; Status DC Morphine Sulfate (Morphine Sulfate) 4 mg PRN Q2HR PRN IV SEVERE PAIN 7-10; Start 02/14/20 at 04:45; Stop 02/15/20 at 04:44; Status DC Rocuronium [place] (Zemuron) 100 mg 1X ONCE IV Last administered on 02/14/20at 04:56; Start 02/14/20 at 05:00; Stop 02/14/20 at 05:01; Status DC Etomidate (Amidate) 20 mg 1X ONCE IV Last administered on 02/14/20at 04:56; Start 02/14/20 at 05:00; Stop 02/14/20 at 05:01; Status DC Fentanyl Citrate (Fentanyl 2ml Vial) 100 mcg 1X ONCE IVP Last administered on 02/14/20at 04:55; Start 02/14/20 at 05:00; Stop 02/14/20 at 05:01; Status DC Propofol (Diprivan) 200 mg STK-MED ONCE IV ; Start 02/14/20 at 05:02; Stop 02/14/20 at 05:03; Status DC Propofol 50 ml @ As Directed STK-MED ONCE IV ; Start 02/14/20 at 05:03; Stop 02/14/20 at 05:03; Status DC Propofol (Diprivan) 200 mg 1X ONCE IV ; Start 02/14/20 at 05:30; Stop 02/14/20 at 05:31; Status DC Vancomycin HCl 250 ml @ 250 mls/hr PREOP PRN PRN IV PREOP Last administered on 02/14/20at 06:48; Start 02/14/20 at 06:00; Stop 02/15/20 at 05:59; Status DC Propofol 100 ml @ 0 mls/hr CONT PRN IV SEE I/O RECORD Last administered on 02/14/20at 11:30; Start 02/14/20 at 06:30; Stop 02/25/20 at 11:51; Status DC Fentanyl Citrate (Fentanyl 2ml Vial) 50 mcg 1X ONCE IVP Last administered on 02/14/20at 06:48; Start 02/14/20 at 07:00; Stop 02/14/20 at 07:01; Status DC Lidocaine HCl (Xylocaine-Mpf 1% 2ml Vial) 2 ml STK-MED ONCE .ROUTE ; Start 02/14/20 at 06:43; Stop 02/14/20 at 06:43; Status DC Fentanyl Citrate (Fentanyl 2ml Vial) 50 mcg 1X ONCE IVP Last administered on 02/14/20at 07:23; Start 02/14/20 at 07:30; Stop 02/14/20 at 07:31; Status DC Fentanyl Citrate 30 ml @ 2.5 mls/hr CONT PRN IV SEE PROTOCOL Last administered on 02/15/20at 09:14; Start 02/14/20 at 07:30; Stop 02/25/20 at 11:51; Status DC Fentanyl Citrate (Fentanyl 2ml Vial) 25 mcg PRN Q1HR PRN IV SEE COMMENTS; Start 02/14/20 at 07:30; Stop 02/15/20 at 18:51; Status DC Fentanyl Citrate (Fentanyl 2ml Vial) 50 mcg PRN Q1HR PRN IV SEE COMMENTS; Start 02/14/20 at 07:30; Stop 02/15/20 at 18:51; Status DC Famotidine (Pepcid Vial) 20 mg BID IVP ; Start 02/14/20 at 21:00; Stop 02/14/20 at 16:18; Status DC Potassium Chloride/Dextrose/ Sod Cl 1,000 ml @ 50 mls/hr Q20H IV Last administered on 02/24/20at 00:16; Start 02/14/20 at 11:30; Stop 02/24/20 at 12:27; Status DC Pantoprazole Sodium (PROTONIX VIAL for IV PUSH) 40 mg DAILYAC IVP Last administered on 02/29/20at 08:26; Start 02/15/20 at 07:30 Vancomycin HCl 1 gm/Sodium Chloride 250 ml @ 250 mls/hr Q12H IV Last administered on 02/17/20at 04:35; Start 02/15/20 at 17:00; Stop 02/17/20 at 07:34; Status DC Vancomycin HCl (Vanco Per Pharmacy) 1 each PRN DAILY PRN MC SEE COMMENTS; Start 02/15/20 at 16:15; Stop 02/17/20 at 07:35; Status DC Fentanyl Citrate (Fentanyl 2ml Vial) 25 mcg Q1HR ONCE IV Last administered on 02/15/20at 18:54; Start 02/15/20 at 19:00; Stop 02/15/20 at 19:01; Status DC Fentanyl Citrate (Fentanyl 2ml Vial) 25 mcg PRN Q1HR PRN IVP SEVERE PAIN 7-10 Last administered on 02/24/20at 04:26; Start 02/15/20 at 22:30 Cefazolin Sodium/ Dextrose (Ancef 2gm Premix) 2 gm STK-MED ONCE IV ; Start 02/14/20 at 07:00; Stop 02/16/20 at 06:46; Status DC Dexamethasone Sodium Phosphate (Decadron) 4 mg Q6HRS IVP Last administered on 02/22/20at 12:04; Start 02/16/20 at 12:00; Stop 02/22/20 at 15:31; Status DC Dexamethasone Sodium Phosphate (Decadron) 4 mg 1X ONCE IVP Last administered on 02/16/20at 07:57; Start 02/16/20 at 08:00; Stop 02/16/20 at 08:01; Status DC Dexmedetomidine HCl 400 mcg/ Sodium Chloride 100 ml @ 0 mls/hr CONT PRN IV PER PROTOCOL Last administered on 02/21/20at 23:32; Start 02/16/20 at 08:30; Stop 02/25/20 at 11:51; Status DC Sodium Chloride 500 ml @ 500 mls/hr 1X PRN PRN IV SEE COMMENTS; Start 02/16/20 at 08:30 Atropine Sulfate (ATROPINE 0.5mg SYRINGE) 0.5 mg PRN Q5MIN PRN IV SEE COMMENTS; Start 02/16/20 at 08:30 Levofloxacin/ Dextrose 100 ml @ 100 mls/hr Q24H IV Last administered on 02/22/20at 12:03; Start 02/16/20 at 12:00; Stop 02/22/20 at 13:37; Status DC Albuterol/ Ipratropium (Duoneb) 3 ml RTQID NEB Last administered on 03/01/20at 07:23; Start 02/16/20 at 12:00 Lorazepam (Ativan Inj) 1 mg PRN Q2HRS PRN IVP ANXIETY / AGITATION Last administered on 03/01/20at 00:56; Start 02/18/20 at 09:00 Metoprolol Tartrate (Lopressor Vial) 5 mg Q6HRS IVP Last administered on 03/01/20at 04:53; Start 02/22/20 at 10:30 Hydralazine HCl (Apresoline Inj) 10 mg Q4HRS IVP Last administered on 02/29/20at 16:15; Start 02/23/20 at 10:15 Amino Acids/ Glycerin/ Electrolytes 1,000 ml @ 80 mls/hr [id number] IV Last administered on 02/26/20at 08:32; Start 02/24/20 at 08:00; Stop 02/26/20 at 17:07; Status DC Potassium Chloride/Dextrose/ Sod Cl 1,000 ml @ 50 mls/hr Q20H IV Last administered on 02/25/20at 09:12; Start 02/25/20 at 09:00; Stop 02/25/20 at 11:13; Status DC Insulin Human Lispro (HumaLOG) 0-5 UNITS Q6HRS SQ Last administered on 02/29/20at 17:55; Start 02/25/20 at 12:00 Dextrose (Dextrose 50%-Water Syringe) 12.5 gm PRN Q15MIN PRN IV SEE COMMENTS; Start 02/25/20 at 08:45 Dextrose 1,000 ml @ 50 mls/hr Q20H IV Last administered on 02/28/20at 00:56; Start 02/25/20 at 11:15; Stop 02/28/20 at 18:45; Status DC Dextrose/Sodium Chloride 1,000 ml @ 75 mls/hr 1X ONCE IV Last administered on 02/26/20at 20:21; Start 02/26/20 at 17:15; Stop 02/27/20 at 06:34; Status DC Amino Acids/ Glycerin/ Electrolytes 1,000 ml @ 80 mls/hr [id number] IV Last administered on 02/29/20at 22:32; Start 02/26/20 at 17:15 Levofloxacin/ Dextrose 50 ml @ 50 mls/hr 1X ONCE IV ; Start 03/01/20 at 12:00; Stop 03/01/20 at 12:59 Active Scripts Active Reported Flomax (Tamsulosin Hcl) 0.4 Mg Cap.er.24h 1 Cap PO DAILY Vitals/I & O Vital Sign - Last 24 Hours 02/29/20 02/29/20 02/29/20 02/29/20 11:00 11:45 12:00 12:04 Temp 97.6 97.6 Pulse 103 103 103 B/P (MAP) 130/79 (96) 130/79 130/79 Pulse Ox 95 O2 Delivery Room Air Room Air 02/29/20 02/29/20 02/29/20 02/29/20 15:00 15:48 16:15 17:48 Temp 99.4 99.4 Pulse 94 94 94 B/P (MAP) 132/85 (101) 132/85 132/85 Pulse Ox 96 O2 Delivery Room Air Room Air 02/29/20 02/29/20 02/29/20 02/29/20 19:00 19:13 20:00 20:51 Temp 99.1 99.1 Pulse 88 88 B/P (MAP) 150/80 (103) 150/80 Pulse Ox 98 O2 Delivery Room Air Room Air Room Air O2 Flow Rate 3.0 02/29/20 02/29/20 03/01/20 03/01/20 23:11 23:54 03:01 03:29 Temp 99.2 100.0 99.2 100.0 Pulse 87 82 90 90 Resp 18 19 B/P (MAP) 123/67 123/67 (85) 129/73 (91) 129/73 Pulse Ox 98 99 O2 Delivery Room Air Room Air 03/01/20 03/01/20 03/01/20 03/01/20 03:30 04:53 07:00 07:30 Temp 99.1 99.0 99.1 99.0 Pulse 90 88 Resp 20 B/P (MAP) 129/73 131/72 (91) Pulse Ox 96 96 O2 Delivery Room Air Room Air 03/01/20 07:50 O2 Delivery Room Air O2 Flow Rate 3.0 Intake and Output 02/29/20 02/29/20 03/01/20 15:00 23:00 07:00 Intake Total 0 ml 960 ml Output Total 850 ml 350 ml 700 ml Balance -850 ml -350 ml 260 ml Justifications for Admission Other Justification CYNDEE VASQUEZ MD Mar 01, 2020 09:46
[2020-03-01] MEDS: AMINO AC 3%/ELECTROLYTE/GLYCER 1,000 ML IV SCH ×2 (09:51→21:02)
[2020-03-01 10:50] VITALS: BP_SYST 121; BP_SYST 150; BP_DIAS 59; BP_DIAS 64
--- NOTE | 2020-03-01 10:55 | PDOC ---
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 Intraventricular extension of hemorrhage filling much of the right lateral ventricle and extending downwards through the fourth ventricle.hematoma and associated edema exert mass effect on the foramen of Prieto and a portion of the third ventricle. dilatation of the right lateral ventricle temporal horn developing hydrocephalus. 02/13 ctRight frontal approach ventriculostomy . Stable ventricular configuration. Stable right basal ganglia acute intraparenchymal hemorrhage with intraventricular extension. Mass effect with sulcal effacement and increased suprasellar cistern effacement. Acute hypoxic resp failure Prior old stroke Hyperlipidemia Tobacco abuse Dense left hemiparesis Hypernatremia Plan: contnue procalamine will try to have ST reeval now that patient seems more awake Continue with supportive measures Patient will certainly require placement at LTACH History of Present Illness History of Present Illness Mr Kam is a 64yo M w/ PMHx HLD, HTN, prior CVA who p/w , Mr Kam is a 64yo M w/ PMHx HLD, HTN, prior CVA who p/w complaints of headache and weakness on 02/14/2020. Per EMS, the patient was last seen at 12:00 a.m. approximately 3 hours prior to arrival. The patient woke up with a severe headache. He went back to sleep and woke up again with a headache. CT head showed right-sided basal ganglia hemorrhage of moderate to large size with extension into the ventricular system. He underwent a ventriculostomy, initial pressure was 9 cm of water. EVD removed 02/17. CT stable on 02/27 Acute respiratory failure, extubated on 02/14, required BIPAP support for 5 days. Consults: Neuro, neurosurgery, Pulm, cardiology, nephrology (hypernatremia), PMR, GI He did required cardene for a few days in ICU due to elevated BP, was started on scheduled metoprolol with good improvement. He was also found with hypernatremia, corrected with procalamine and IVF. Residual dense left hemiparesis. Neurogenic dysphagia, keeps pulling out his Dobhoff - to PEG today. Working with PT. Not verbalizing as much today, though did have a phone conversation with his son on 02/29/2020. Did receive ativan last PM. Plan: PEG, will monitor post-anesthesia, then [facility] -s-t-a-r-t- -t-u-b-e- -f-e-e-d-s- -o-n- -9-/-1-5-/-2-0-2-0- -C-o-n-t- -I-V- -m-e-d-s- -B-o-a-u-c-e- -z-l-p-v-a-n-,- -a-d-d- -e-d-f-r-e-x-a- -f-o-r- -p-p-s-t-d-d-i-o-n- Vitals/I&O Vitals/I&O: Vital Signs Date Time Temp Pulse Resp B/P (MAP) Pulse Ox O2 Delivery O2 Flow Rate FiO2 03/01/20 09:51 88 131/72 03/01/20 07:50 Room Air 3.0 03/01/20 07:30 96 03/01/20 07:00 99.0 20 99.0 I & O 02/29/20 02/29/20 03/01/20 15:00 23:00 07:00 Intake Total 0 ml 960 ml Output Total 850 ml 350 ml 700 ml Balance -850 ml -350 ml 260 ml Physical Exam Physical Exam: General: Other (Makes eye contact tries to talk but I cannot understand) Heart: Regular rate Lungs: Clear Abdomen: Normal bowel sounds Extremities: No cyanosis General: Cooperative, No acute distress Heart: Regular rate Lungs: Crackles Abdomen: Normal bowel sounds, No tenderness Extremities: No clubbing Skin: No rashes Labs Labs: Laboratory Tests Test 02/29/20 11:23 02/29/20 16:37 02/29/20 23:08 03/01/20 04:57 Glucose (Fingerstick) 176 mg/dL (70-99) 208 mg/dL (70-99) 120 mg/dL (70-99) 170 mg/dL (70-99) Assessment and Plan Assessmemt and Plan Problems Medical Problems: (1) Intraparenchymal hemorrhage of brain Status: Acute Comment Review of Relevant I have reviewed the following items faraz (where applicable) has been applied. Justifications for Admission Other Justification LIYA BEEBE MD Mar 01, 2020 10:55
--- NOTE | 2020-03-01 11:50 | NUR ---
SS following up with discharge planning. SS reviewed pt chart and discussed with pt RN. Pt accepted at [facility], ; fax [phone]. SS was notified that beds are available. SS phoned and faxed clinical updates to [facility]. Pt having PEG tube placed today and may be ready for discharge later this afternoon. Med Rec completed by physician and faxed to [facility]. Packet on chart. Pt's family notified. SS will continue to follow for discharge planning.
--- NOTE | 2020-03-01 12:17 | PDOC3 ---
Discharge Summary Visit Information Date of Admission: Feb 14, 2020 Date of Discharge: Mar 02, 2020 Admitting Diagnosis: Intraparenchymal hemorrhage Final Diagnosis Problems Medical Problems: (1) Intraparenchymal hemorrhage of brain Status: Acute Brief Hospital Course Allergies Allergies Coded Allergies Type Severity Reaction Last Updated Verified Penicillins Allergy Severe Rash 02/14/20 Yes Vital Signs Vital Signs Date Time Temp Pulse Resp B/P (MAP) Pulse Ox O2 Delivery O2 Flow Rate FiO2 03/01/20 11:19 95 Room Air 03/01/20 10:50 98.8 67 20 121/59 (79) 98.8 03/01/20 07:50 3.0 Lab Results Laboratory Tests Test 02/28/20 17:29 02/28/20 23:12 02/29/20 04:56 02/29/20 09:45 Glucose (Fingerstick) 208 mg/dL (70-99) 194 mg/dL (70-99) 236 mg/dL (70-99) White Blood Count 12.2 x10^3/uL (4.0-11.0) Red Blood Count 4.46 x10^6/uL (4.30-5.70) Hemoglobin 13.3 g/dL (13.0-17.5) Hematocrit 40.2 % (39.0-53.0) Mean Corpuscular Volume 90 fL (79-100) Mean Corpuscular Hemoglobin 30 pg (25-35) Mean Corpuscular Hemoglobin Concent 33 g/dL (31-37) Red Cell Distribution Width 13.8 % (11.5-14.5) Platelet Count 122 x10^3/uL (140-400) Prothrombin Time 13.5 SEC (11.7-14.0) Prothromb Time International Ratio 1.1 (0.8-1.1) Sodium Level 140 mmol/L (136-145) Potassium Level 3.7 mmol/L (3.5-5.1) Chloride Level 106 mmol/L (98-107) Carbon Dioxide Level 26 mmol/L (21-32) Anion Gap 8 (6-14) Blood Urea Nitrogen 20 mg/dL (8-26) Creatinine 0.7 mg/dL (0.7-1.3) Estimated GFR (Cockcroft-Gault) 113.5 Glucose Level 201 mg/dL (70-99) Calcium Level 8.2 mg/dL (8.5-10.1) Test 02/29/20 11:23 02/29/20 16:37 02/29/20 23:08 03/01/20 04:57 Glucose (Fingerstick) 176 mg/dL (70-99) 208 mg/dL (70-99) 120 mg/dL (70-99) 170 mg/dL (70-99) Laboratory Tests Test 02/29/20 16:37 02/29/20 23:08 03/01/20 04:57 Glucose (Fingerstick) 208 mg/dL (70-99) 120 mg/dL (70-99) 170 mg/dL (70-99) Brief Hospital Course Mr Kam is a 64yo M w/ PMHx HLD, HTN, prior CVA who p/w , Mr Kam is a 64yo M w/ PMHx HLD, HTN, prior CVA who p/w complaints of headache and weakness on 02/14/2020. Per EMS, the patient was last seen at 12:00 a.m. approximately 3 hours prior to arrival. The patient woke up with a severe headache. He went back to sleep and woke up again with a headache. CT head showed right-sided basal ganglia hemorrhage of moderate to large size with extension into the ventricular system. He underwent a ventriculostomy, initial pressure was 9 cm of water. EVD removed 02/17. CT stable on 02/27 Acute respiratory failure, extubated on 02/14, required BIPAP support for 5 days. Consults: Neuro, neurosurgery, Pulm, cardiology, nephrology (hypernatremia), PMR, GI He did required cardene for a few days in ICU due to elevated BP, was started on scheduled metoprolol with good improvement. He was also found with hypernatremia, corrected with procalamine and IVF. Residual dense left hemiparesis. Neurogenic dysphagia, keeps pulling out his Dobhoff - to PEG today. Working with PT. Not verbalizing as much today, though did have a phone conversation with his son on 02/29/2020. Did receive ativan last PM. 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 Intraventricular extension of hemorrhage filling much of the right lateral ventricle and extending downwards through the fourth ventricle.hematoma and associated edema exert mass effect on the foramen of Prieto and a portion of the third ventricle. dilatation of the right lateral ventricle temporal horn developing hydrocephalus. 02/13 ctRight frontal approach ventriculostomy . Stable ventricular configuration. Stable right basal ganglia acute intraparenchymal hemorrhage with intraventricular extension. Mass effect with sulcal effacement and increased suprasellar cistern effacement. Acute hypoxic resp failure Prior old stroke Hyperlipidemia Tobacco abuse Dense left hemiparesis Hypernatremia Plan: PEG, will monitor post-anesthesia, then [facility]c [facility] Start tube feeds on 03/02/2020 with free water bolus Cont IV meds Reduce ativan, add zyprexa for agitation Daily PT/OT/[employer] INST[employer]ER Greater than 30 minutes spent on d/c to LTACH Discharge Information Condition at Discharge: Improved Follow Up: Weeks (1) Disposition/Orders: D/C to Another Facility ([facility]) Scheduled Tamsulosin Hcl (Flomax) 0.4 Mg Cap.er.24h, 1 CAP PO DAILY for BPH, #30 Ref 11 (Reported) Entered as Reported by: Jude Hooks on 02/14/202025 Last Action: New Order on 02/14/202025 by Jude Hooks Justicifation of Admission Dx: Justifications for Admission: Justification of Admission Dx: Yes Acute Hemorrhagic Stroke: Acute Hemorrhagic Stroke LIYA BEEBE MD Mar 01, 2020 12:17
--- NOTE | 2020-03-01 12:25 | NUR ---
SS following up with discharge planning. Bed available at [facility] at 1600. SS discussed with physician. Pt will discharge today and go to [facility] at 1600 via [facility] ambulance. Pt's son and pt's RN notified. Packet and ambulance form on the chart.
[2020-03-01] MEDS ORDERED: IV RINGERS,LACTATED 1000ML 1,000 ML IV SCH (12:47)
[2020-03-01] MEDS ORDERED: PROPOFOL 10 MG/ML (20ML) VIAL. IV ONE (14:35)
--- NOTE | 2020-03-01 15:09 | PDOC ---
Renal-Progress Notes Subjective Notes Notes NONE History of Present Illness Hx of present illness STABLE Vitals Vitals Vital Signs Date Time Temp Pulse Resp B/P (MAP) Pulse Ox O2 Delivery O2 Flow Rate FiO2 03/01/20 14:43 89 20 95 Room Air 3.0 03/01/20 13:22 99.0 99.0 03/01/20 12:26 121/59 Weight Weight [ ] I.O. Intake and Output Intake and Output 03/01/20 07:00 Intake Total 960 ml Output Total 1900 ml Balance -940 ml Intake Oral 0 ml IV Total 960 ml Output Urine Total 1900 ml Labs Labs Laboratory Tests Test 02/29/20 16:37 02/29/20 23:08 03/01/20 04:57 Glucose (Fingerstick) 208 mg/dL (70-99) 120 mg/dL (70-99) 170 mg/dL (70-99) Review of Systems Constitutional: yes: other (UNABLE TO OBTAIN) Physical Exam General Appearance: no apparent distress Skin: warm Respiratory: bilateral CTA Heart: S1S2 Abdomen: soft, bowel sounds present Genitourinary: bladder flat Extremities: pulses present Neurology: confused, other (sedated) Assessment Assessment IMP SEVERE HYPERNATREMIA-FREE WATER DEFICIT-RESOLVED. MILD SASCHA DUE TO EXTRACELLULAR VOLUME DEPLETION-RESOLVED ICB AND S/P VENTRICULOSTOMY PLAN WILL SIGN OFF PLANS FOR D/C NOTED IZZY JARQUIN MD Mar 01, 2020 15:09
--- NOTE | 2020-03-01 15:15 | PDOC4 ---
PROCEDURE Procedure EGD/PEG Indication: OP dysphagia post-CVA Meds: per anesthesia Findings: E--Grade A reflux at 40cm G--normal D--Patchy erythema, bulb,. --20F g-tube placed uneventfully. Kelle. well. IMP: mild reflux. Successful PEG REC: meds/water per tube today. Can feed in AM if no problems. LAST EDOUARD MD Mar 01, 2020 15:14
--- NOTE | 2020-03-01 15:29 | NUR ---
SS following up with discharge planning. SS received notification from physician that GI is wanting to hold pt overnight. Discharge was cancelled. [facility] and [facility] notified. SS will continue to follow for discharge planning.
[2020-03-01] MEDS: fentaNYL PF VIAL 100 MCG/2 ML VIAL IVP PRN ×2 (17:23→21:06)
[2020-03-01 19:20] VITALS: BP 122/70
[2020-03-01 22:40] VITALS: BP 129/78
[2020-03-02 02:55] VITALS: BP 115/73
[2020-03-02] MEDS: hydrALAZINE 20 MG/ML VIAL. IVP SCH ×2 (04:00→08:00)
[2020-03-02] MEDS: METOPROLOL TARTRATE 5 MG/5 ML VIAL. IVP SCH (05:04)
[2020-03-02] MEDS: INSULIN LISPRO 300 UNITS/3 ML VIAL. SQ SCH (05:04)
[2020-03-02 07:00] VITALS: BP 109/65
[2020-03-02] MEDS: IPRATRPIUM/ALBUTEROL 0.5/2.5MG 3 ML NEBU. NEB SCH (07:22)
--- NOTE | 2020-03-02 08:04 | PDOC ---
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 Intraventricular extension of hemorrhage filling much of the right lateral ventricle and extending downwards through the fourth ventricle.hematoma and associated edema exert mass effect on the foramen of Prieto and a portion of the third ventricle. dilatation of the right lateral ventricle temporal horn developing hydrocephalus. 02/13 ctRight frontal approach ventriculostomy . Stable ventricular configuration. Stable right basal ganglia acute intraparenchymal hemorrhage with intraventricular extension. Mass effect with sulcal effacement and increased suprasellar cistern effacement. Acute hypoxic resp failure Prior old stroke Hyperlipidemia Tobacco abuse Dense left hemiparesis Hypernatremia Plan: contnue procalamine will try to have ST reeval now that patient seems more awake Continue with supportive measures Patient will certainly require placement at LTACH History of Present Illness History of Present Illness Mr Kam is a 64yo M w/ PMHx HLD, HTN, prior CVA who p/w , Mr Kam is a 64yo M w/ PMHx HLD, HTN, prior CVA who p/w complaints of headache and weakness on 02/14/2020. Per EMS, the patient was last seen at 12:00 a.m. approximately 3 hours prior to arrival. The patient woke up with a severe headache. He went back to sleep and woke up again with a headache. CT head showed right-sided basal ganglia hemorrhage of moderate to large size with extension into the ventricular system. He underwent a ventriculostomy, initial pressure was 9 cm of water. EVD removed 02/17. CT stable on 02/27 Acute respiratory failure, extubated on 02/14, required BIPAP support for 5 days. Consults: Neuro, neurosurgery, Pulm, cardiology, nephrology (hypernatremia), PMR, GI He did required cardene for a few days in ICU due to elevated BP, was started on scheduled metoprolol with good improvement. He was also found with hypernatremia, corrected with procalamine and IVF. Residual dense left hemiparesis. 03/01: S/P PEG for Neurogenic dysphagia Working with PT. Verbalizing more today, though did have a phone conversation with his son on 02/29/2020. Plan: PEG, will monitor post-anesthesia, then d/c to [facility] Start tube feeds today Change to meds via PEG Vitals/I&O Vitals/I&O: Vital Signs Date Time Temp Pulse Resp B/P (MAP) Pulse Ox O2 Delivery O2 Flow Rate FiO2 03/02/20 07:22 94 Room Air 03/02/20 05:04 101 115/73 03/02/20 02:55 98.0 18 98.0 03/01/20 17:50 3.0 I & O 03/01/20 03/01/20 03/02/20 15:00 23:00 07:00 Intake Total 125 ml 360 ml 1020 ml Output Total 750 ml 850 ml Balance 125 ml -390 ml 170 ml Physical Exam Physical Exam: General: Other (Makes eye contact tries to talk but I cannot understand) Heart: Regular rate Lungs: Clear Abdomen: Normal bowel sounds Extremities: No cyanosis General: Cooperative, No acute distress Heart: Regular rate Lungs: Crackles Abdomen: Normal bowel sounds, No tenderness Extremities: No clubbing Skin: No rashes Labs Labs: Laboratory Tests Test 03/01/20 16:32 03/01/20 22:56 03/02/20 04:58 Glucose (Fingerstick) 161 mg/dL (70-99) 185 mg/dL (70-99) 180 mg/dL (70-99) Assessment and Plan Assessmemt and Plan Problems Medical Problems: (1) Intraparenchymal hemorrhage of brain Status: Acute Comment Review of Relevant I have reviewed the following items faraz (where applicable) has been applied. Medications: Current Medications Medications (Trade) Dose Ordered Sig/Fabricio Route PRN Reason Start Time Stop Time Status Last Admin Dose Admin Levofloxacin/ Dextrose 50 ml @ 50 mls/hr 1X ONCE IV 03/01/20 12:00 03/01/20 12:59 DC 03/01/20 12:00 Ringer's Solution 1,000 ml @ 50 mls/hr Q20H IV 03/01/20 12:47 03/02/20 00:46 DC 03/01/20 12:47 Justifications for Admission Other Justification LIYA BEEBE MD Mar 02, 2020 08:04
--- NOTE | 2020-03-02 09:11 | PDOC ---
Date of Service: DATE: 03/02/20 TIME: 09:09 Objective: Objective: D/w nurse - no issues w/ PEG overnight. Vital Signs: Vital Signs Date Time Temp Pulse Resp B/P (MAP) Pulse Ox O2 Delivery O2 Flow Rate FiO2 03/02/20 07:22 94 Room Air 03/02/20 07:00 99.5 57 22 109/65 (80) 99.5 03/01/20 17:50 3.0 Labs: Laboratory Tests Test 03/01/20 16:32 03/01/20 22:56 03/02/20 04:58 Glucose (Fingerstick) 161 mg/dL (70-99) 185 mg/dL (70-99) 180 mg/dL (70-99) Imaging: EGD/PEG 03/01 E--Grade A reflux at 40cm G--normal D--Patchy erythema, bulb,. --20F g-tube placed uneventfully. IMP: mild reflux. Successful PEG REC: meds/water per tube today. Can feed in AM if no problems. PE: GEN: NAD LUNGS: CTAB HEART: RRR ABD: soft, non-tender, gauze (w/ some dried blood) removed from under PEG, bumper loosed, abd binder replaced NEURO/PSYCH: did not rouse during exam A/P: S/p PEG -- Okay to start tube feeds and DC to [facility] today. Abd binder at all times. Justicifation of Admission Dx: Justifications for Admission: Justification of Admission Dx: Yes Acute Hemorrhagic Stroke: Acute Hemorrhagic Stroke MACRINA IZAGUIRRE Mar 02, 2020 09:11
--- NOTE | 2020-03-02 09:33 | PDOC ---
PROGRESS NOTES Date of Service DATE: 03/02/20 TIME: 09:31 Subjective Subjective No new complaints. Objective Objective Vital Signs Date Time Temp Pulse Resp B/P (MAP) Pulse Ox O2 Delivery O2 Flow Rate FiO2 03/02/20 07:22 94 Room Air 03/02/20 07:00 99.5 57 22 109/65 (80) 99.5 03/01/20 17:50 3.0 Intake and Output 03/02/20 07:00 Intake Total 1505 ml Output Total 1600 ml Balance -95 ml Intake Oral 0 ml IV Total 1260 ml Tube Feeding 245 ml Output Urine Total 1600 ml # Bowel Movements 1 Physical Exam Physical Exam He is alert,supine in bed and talking some and following some commands and no voluntary motion noted in his left upper and lower extremities. Assessment Assessment Problems Medical Problems: (1) Intraparenchymal hemorrhage of brain Status: Acute Plan Plan of Care Agree with plans for transfer to LTAC unit. Comment Review of Relevant I have reviewed the following items faraz (where applicable) has been applied. Labs Laboratory Tests Test 02/29/20 09:45 02/29/20 11:23 02/29/20 16:37 02/29/20 23:08 White Blood Count 12.2 x10^3/uL (4.0-11.0) Red Blood Count 4.46 x10^6/uL (4.30-5.70) Hemoglobin 13.3 g/dL (13.0-17.5) Hematocrit 40.2 % (39.0-53.0) Mean Corpuscular Volume 90 fL (79-100) Mean Corpuscular Hemoglobin 30 pg (25-35) Mean Corpuscular Hemoglobin Concent 33 g/dL (31-37) Red Cell Distribution Width 13.8 % (11.5-14.5) Platelet Count 122 x10^3/uL (140-400) Prothrombin Time 13.5 SEC (11.7-14.0) Prothromb Time International Ratio 1.1 (0.8-1.1) Sodium Level 140 mmol/L (136-145) Potassium Level 3.7 mmol/L (3.5-5.1) Chloride Level 106 mmol/L (98-107) Carbon Dioxide Level 26 mmol/L (21-32) Anion Gap 8 (6-14) Blood Urea Nitrogen 20 mg/dL (8-26) Creatinine 0.7 mg/dL (0.7-1.3) Estimated GFR (Cockcroft-Gault) 113.5 Glucose Level 201 mg/dL (70-99) Calcium Level 8.2 mg/dL (8.5-10.1) Glucose (Fingerstick) 176 mg/dL (70-99) 208 mg/dL (70-99) 120 mg/dL (70-99) Test 03/01/20 04:57 03/01/20 16:32 03/01/20 22:56 03/02/20 04:58 Glucose (Fingerstick) 170 mg/dL (70-99) 161 mg/dL (70-99) 185 mg/dL (70-99) 180 mg/dL (70-99) Laboratory Tests Test 03/01/20 16:32 03/01/20 22:56 03/02/20 04:58 Glucose (Fingerstick) 161 mg/dL (70-99) 185 mg/dL (70-99) 180 mg/dL (70-99) Medications Current Medications Nicardipine HCl 50 mg/Sodium Chloride 250 ml @ 12.5 mls/hr CONT PRN IV SEE I/O RECORD Last administered on 02/23/20at 09:50; Start 02/14/20 at 03:30; Stop 02/25/20 at 11:54; Status DC Ondansetron HCl (Zofran) 8 mg 1X ONCE IVP Last administered on 02/14/20at 03:48; Start 02/14/20 at 04:00; Stop 02/14/20 at 04:01; Status DC Metoclopramide HCl (Reglan Vial) 10 mg STK-MED ONCE .ROUTE ; Start 02/14/20 at 04:00; Stop 02/14/20 at 04:00; Status DC Diphenhydramine HCl (Benadryl) 50 mg STK-MED ONCE .ROUTE ; Start 02/14/20 at 04:02; Stop 02/14/20 at 04:02; Status DC Hydromorphone HCl (Dilaudid) 2 mg STK-MED ONCE .ROUTE ; Start 02/14/20 at 04:02; Stop 02/14/20 at 04:03; Status DC Lidocaine HCl (Lidocaine 1% 20ml Vial) 20 ml STK-MED ONCE .ROUTE ; Start 02/14/20 at 04:11; Stop 02/14/20 at 04:12; Status DC Ondansetron HCl (Zofran) 4 mg PRN Q8HRS PRN IV NAUSEA/VOMITING 1ST CHOICE; Start 02/14/20 at 04:45; Stop 02/15/20 at 04:44; Status DC Morphine Sulfate (Morphine Sulfate) 4 mg PRN Q2HR PRN IV SEVERE PAIN 7-10; Start 02/14/20 at 04:45; Stop 02/15/20 at 04:44; Status DC Rocuronium [place] (Zemuron) 100 mg 1X ONCE IV Last administered on 02/14/20at 04:56; Start 02/14/20 at 05:00; Stop 02/14/20 at 05:01; Status DC Etomidate (Amidate) 20 mg 1X ONCE IV Last administered on 02/14/20at 04:56; Start 02/14/20 at 05:00; Stop 02/14/20 at 05:01; Status DC Fentanyl Citrate (Fentanyl 2ml Vial) 100 mcg 1X ONCE IVP Last administered on 02/14/20at 04:55; Start 02/14/20 at 05:00; Stop 02/14/20 at 05:01; Status DC Propofol (Diprivan) 200 mg STK-MED ONCE IV ; Start 02/14/20 at 05:02; Stop 02/14/20 at 05:03; Status DC Propofol 50 ml @ As Directed STK-MED ONCE IV ; Start 02/14/20 at 05:03; Stop 02/14/20 at 05:03; Status DC Propofol (Diprivan) 200 mg 1X ONCE IV ; Start 02/14/20 at 05:30; Stop 02/14/20 at 05:31; Status DC Vancomycin HCl 250 ml @ 250 mls/hr PREOP PRN PRN IV PREOP Last administered on 02/14/20at 06:48; Start 02/14/20 at 06:00; Stop 02/15/20 at 05:59; Status DC Propofol 100 ml @ 0 mls/hr CONT PRN IV SEE I/O RECORD Last administered on 02/14/20at 11:30; Start 02/14/20 at 06:30; Stop 02/25/20 at 11:51; Status DC Fentanyl Citrate (Fentanyl 2ml Vial) 50 mcg 1X ONCE IVP Last administered on 02/14/20at 06:48; Start 02/14/20 at 07:00; Stop 02/14/20 at 07:01; Status DC Lidocaine HCl (Xylocaine-Mpf 1% 2ml Vial) 2 ml STK-MED ONCE .ROUTE ; Start 02/14/20 at 06:43; Stop 02/14/20 at 06:43; Status DC Fentanyl Citrate (Fentanyl 2ml Vial) 50 mcg 1X ONCE IVP Last administered on 02/14/20at 07:23; Start 02/14/20 at 07:30; Stop 02/14/20 at 07:31; Status DC Fentanyl Citrate 30 ml @ 2.5 mls/hr CONT PRN IV SEE PROTOCOL Last administered on 02/15/20at 09:14; Start 02/14/20 at 07:30; Stop 02/25/20 at 11:51; Status DC Fentanyl Citrate (Fentanyl 2ml Vial) 25 mcg PRN Q1HR PRN IV SEE COMMENTS; Start 02/14/20 at 07:30; Stop 02/15/20 at 18:51; Status DC Fentanyl Citrate (Fentanyl 2ml Vial) 50 mcg PRN Q1HR PRN IV SEE COMMENTS; Start 02/14/20 at 07:30; Stop 02/15/20 at 18:51; Status DC Famotidine (Pepcid Vial) 20 mg BID IVP ; Start 02/14/20 at 21:00; Stop 02/14/20 at 16:18; Status DC Potassium Chloride/Dextrose/ Sod Cl 1,000 ml @ 50 mls/hr Q20H IV Last administered on 02/24/20at 00:16; Start 02/14/20 at 11:30; Stop 02/24/20 at 12:27; Status DC Pantoprazole Sodium (PROTONIX VIAL for IV PUSH) 40 mg DAILYAC IVP Last administered on 03/01/20at 09:39; Start 02/15/20 at 07:30 Vancomycin HCl 1 gm/Sodium Chloride 250 ml @ 250 mls/hr Q12H IV Last administered on 02/17/20at 04:35; Start 02/15/20 at 17:00; Stop 02/17/20 at 07:34; Status DC Vancomycin HCl (Vanco Per Pharmacy) 1 each PRN DAILY PRN MC SEE COMMENTS; Start 02/15/20 at 16:15; Stop 02/17/20 at 07:35; Status DC Fentanyl Citrate (Fentanyl 2ml Vial) 25 mcg Q1HR ONCE IV Last administered on 02/15/20at 18:54; Start 02/15/20 at 19:00; Stop 02/15/20 at 19:01; Status DC Fentanyl Citrate (Fentanyl 2ml Vial) 25 mcg PRN Q1HR PRN IVP SEVERE PAIN 7-10 Last administered on 03/01/20at 21:06; Start 02/15/20 at 22:30 Cefazolin Sodium/ Dextrose (Ancef 2gm Premix) 2 gm STK-MED ONCE IV ; Start 02/14/20 at 07:00; Stop 02/16/20 at 06:46; Status DC Dexamethasone Sodium Phosphate (Decadron) 4 mg Q6HRS IVP Last administered on 02/22/20at 12:04; Start 02/16/20 at 12:00; Stop 02/22/20 at 15:31; Status DC Dexamethasone Sodium Phosphate (Decadron) 4 mg 1X ONCE IVP Last administered on 02/16/20at 07:57; Start 02/16/20 at 08:00; Stop 02/16/20 at 08:01; Status DC Dexmedetomidine HCl 400 mcg/ Sodium Chloride 100 ml @ 0 mls/hr CONT PRN IV PER PROTOCOL Last administered on 02/21/20at 23:32; Start 02/16/20 at 08:30; Stop 02/25/20 at 11:51; Status DC Sodium Chloride 500 ml @ 500 mls/hr 1X PRN PRN IV SEE COMMENTS; Start 02/16/20 at 08:30 Atropine Sulfate (ATROPINE 0.5mg SYRINGE) 0.5 mg PRN Q5MIN PRN IV SEE COMMENTS; Start 02/16/20 at 08:30 Levofloxacin/ Dextrose 100 ml @ 100 mls/hr Q24H IV Last administered on 02/22/20at 12:03; Start 02/16/20 at 12:00; Stop 02/22/20 at 13:37; Status DC Albuterol/ Ipratropium (Duoneb) 3 ml RTQID NEB Last administered on 03/02/20at 07:22; Start 02/16/20 at 12:00 Lorazepam (Ativan Inj) 1 mg PRN Q2HRS PRN IVP ANXIETY / AGITATION Last administered on 03/01/20at 00:56; Start 02/18/20 at 09:00; Stop 03/01/20 at 12:07; Status DC Metoprolol Tartrate (Lopressor Vial) 5 mg Q6HRS IVP Last administered on 03/02/20at 05:04; Start 02/22/20 at 10:30 Hydralazine HCl (Apresoline Inj) 10 mg Q4HRS IVP Last administered on 03/01/20at 12:25; Start 02/23/20 at 10:15 Amino Acids/ Glycerin/ Electrolytes 1,000 ml @ 80 mls/hr [id number] IV Last administered on 02/26/20at 08:32; Start 02/24/20 at 08:00; Stop 02/26/20 at 17:07; Status DC Potassium Chloride/Dextrose/ Sod Cl 1,000 ml @ 50 mls/hr Q20H IV Last administered on 02/25/20at 09:12; Start 02/25/20 at 09:00; Stop 02/25/20 at 11:13; Status DC Insulin Human Lispro (HumaLOG) 0-5 UNITS Q6HRS SQ Last administered on 02/29/20at 17:55; Start 02/25/20 at 12:00 Dextrose (Dextrose 50%-Water Syringe) 12.5 gm PRN Q15MIN PRN IV SEE COMMENTS; Start 02/25/20 at 08:45 Dextrose 1,000 ml @ 50 mls/hr Q20H IV Last administered on 02/28/20at 00:56; Start 02/25/20 at 11:15; Stop 02/28/20 at 18:45; Status DC Dextrose/Sodium Chloride 1,000 ml @ 75 mls/hr 1X ONCE IV Last administered on 02/26/20at 20:21; Start 02/26/20 at 17:15; Stop 02/27/20 at 06:34; Status DC Amino Acids/ Glycerin/ Electrolytes 1,000 ml @ 80 mls/hr [id number] IV Last administered on 03/01/20at 21:02; Start 02/26/20 at 17:15 Levofloxacin/ Dextrose 50 ml @ 50 mls/hr 1X ONCE IV Last administered on 03/01/20at 12:00; Start 03/01/20 at 12:00; Stop 03/01/20 at 12:59; Status DC Lorazepam (Ativan Inj) 0.5 mg PRN Q6HRS PRN IVP ANXIETY / AGITATION; Start 03/01/20 at 12:15 Olanzapine (ZyPREXA ZYDIS) 5 mg PRN BID PRN PO ANXIETY / AGITATION; Start 03/01/20 at 12:15 Ringer's Solution 1,000 ml @ 50 mls/hr Q20H IV Last administered on 03/01/20at 12:47; Start 03/01/20 at 12:47; Stop 03/02/20 at 00:46; Status DC Propofol (Diprivan) 200 mg STK-MED ONCE IV ; Start 03/01/20 at 14:35; Stop 03/01/20 at 14:36; Status DC Active Scripts Active Reported Flomax (Tamsulosin Hcl) 0.4 Mg Cap.er.24h 1 Cap PO DAILY Vitals/I & O Vital Sign - Last 24 Hours 03/01/20 03/01/20 03/01/20 03/01/20 09:51 10:50 11:19 12:25 Temp 98.8 98.8 Pulse 88 67 67 Resp 20 B/P (MAP) 131/72 121/59 (79) 121/59 Pulse Ox 96 95 O2 Delivery Room Air Room Air 03/01/20 03/01/20 03/01/20 03/01/20 12:26 13:18 13:22 14:43 Temp 99.0 99.0 Pulse 67 89 89 Resp 20 20 B/P (MAP) 121/59 Pulse Ox 95 95 O2 Delivery Room Air Room Air O2 Flow Rate 3.0 3.0 03/01/20 03/01/20 03/01/20 03/01/20 15:15 15:30 17:23 17:50 Temp 98.4 98.4 Pulse 100 98 Resp 18 18 20 B/P (MAP) 97/63 101/64 Pulse Ox 98 94 94 94 O2 Delivery Nasal Cannula Room Air Room Air Room Air O2 Flow Rate 3.0 3.0 3.0 03/01/20 03/01/20 03/01/20 03/01/20 18:54 19:20 20:04 20:43 Temp 97.3 97.3 Pulse 111 111 Resp 20 B/P (MAP) 122/70 (87) 122/70 Pulse Ox 96 95 O2 Delivery Room Air Room Air Room Air 03/01/20 03/01/20 03/01/20 03/01/20 21:06 21:36 22:40 22:57 Temp 98.1 98.1 Pulse 103 105 Resp 20 18 20 B/P (MAP) 129/78 (95) 129/78 Pulse Ox 96 O2 Delivery Room Air 03/01/20 03/02/20 03/02/20 03/02/20 23:45 02:55 04:00 05:04 Temp 98.0 98.0 Pulse 105 94 101 101 Resp 18 B/P (MAP) 129/78 115/73 (87) 115/73 115/73 Pulse Ox 94 O2 Delivery Room Air 03/02/20 03/02/20 07:00 07:22 Temp 99.5 99.5 Pulse 57 Resp 22 B/P (MAP) 109/65 (80) Pulse Ox 99 94 O2 Delivery Room Air Room Air Intake and Output 03/01/20 03/01/20 03/02/20 15:00 23:00 07:00 Intake Total 125 ml 360 ml 1020 ml Output Total 750 ml 850 ml Balance 125 ml -390 ml 170 ml Justifications for Admission Other Justification CYNDEE VASQUEZ MD Mar 02, 2020 09:33
[2020-03-02 09:45] VITALS: BP 98/65
[2020-03-02] MEDS ORDERED: METOPROLOL TART IMMED RELEASE 50 MG TABLET. PO SCH (09:45)
[2020-03-02] MEDS ORDERED: METOPROLOL TARTRATE 5 MG/5 ML VIAL. IVP PRN (09:45)
--- NOTE | 2020-03-02 09:53 | NUR ---
SS following up with discharge planning. SS reviewed pt chart and discussed with pt RN. Pt had PEG placed on 03/01/2020. Discharge orders received for [facility], ; fax [phone]. SS phoned and faxed discharge med list to [facility]. Pt will discharge today and go to [facility] at 1100 via [facility] ambulance, . Packet and ambulance form on the chart. Pt, pt's RN, and pt's son notified.
--- NOTE | 2020-03-02 11:14 | PDOC ---
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 He developed acute hydrocephalus and required an emergent EVD, then removed it 02/17. CT stable on 02/27 Acute respiratory failure, extubated. Dense left hemiparesis. 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 EOMI. CN: no focal findings. Muscle tone: increased on left Muscle strength: Left hemiparesis DTR: 2+ Plantar reflex: extensor on the left Gait: not examined in bed. Sensory exam: no abnormal findings. No cerebellar signs elicited. Review of Relevant I have reviewed the following items faraz (where applicable) has been applied. Labs Laboratory Tests Test 02/29/20 11:23 02/29/20 16:37 02/29/20 23:08 03/01/20 04:57 Glucose (Fingerstick) 176 mg/dL (70-99) 208 mg/dL (70-99) 120 mg/dL (70-99) 170 mg/dL (70-99) Test 03/01/20 16:32 03/01/20 22:56 03/02/20 04:58 Glucose (Fingerstick) 161 mg/dL (70-99) 185 mg/dL (70-99) 180 mg/dL (70-99) Laboratory Tests Test 03/01/20 16:32 03/01/20 22:56 03/02/20 04:58 Glucose (Fingerstick) 161 mg/dL (70-99) 185 mg/dL (70-99) 180 mg/dL (70-99) Medications Current Medications Nicardipine HCl 50 mg/Sodium Chloride 250 ml @ 12.5 mls/hr CONT PRN IV SEE I/O RECORD Last administered on 02/23/20at 09:50; Start 02/14/20 at 03:30; Stop 02/25/20 at 11:54; Status DC Ondansetron HCl (Zofran) 8 mg 1X ONCE IVP Last administered on 02/14/20at 03:48; Start 02/14/20 at 04:00; Stop 02/14/20 at 04:01; Status DC Metoclopramide HCl (Reglan Vial) 10 mg STK-MED ONCE .ROUTE ; Start 02/14/20 at 04:00; Stop 02/14/20 at 04:00; Status DC Diphenhydramine HCl (Benadryl) 50 mg STK-MED ONCE .ROUTE ; Start 02/14/20 at 04:02; Stop 02/14/20 at 04:02; Status DC Hydromorphone HCl (Dilaudid) 2 mg STK-MED ONCE .ROUTE ; Start 02/14/20 at 04:02; Stop 02/14/20 at 04:03; Status DC Lidocaine HCl (Lidocaine 1% 20ml Vial) 20 ml STK-MED ONCE .ROUTE ; Start 02/14/20 at 04:11; Stop 02/14/20 at 04:12; Status DC Ondansetron HCl (Zofran) 4 mg PRN Q8HRS PRN IV NAUSEA/VOMITING 1ST CHOICE; Start 02/14/20 at 04:45; Stop 02/15/20 at 04:44; Status DC Morphine Sulfate (Morphine Sulfate) 4 mg PRN Q2HR PRN IV SEVERE PAIN 7-10; Start 02/14/20 at 04:45; Stop 02/15/20 at 04:44; Status DC Rocuronium [place] (Zemuron) 100 mg 1X ONCE IV Last administered on 02/14/20at 04:56; Start 02/14/20 at 05:00; Stop 02/14/20 at 05:01; Status DC Etomidate (Amidate) 20 mg 1X ONCE IV Last administered on 02/14/20at 04:56; Start 02/14/20 at 05:00; Stop 02/14/20 at 05:01; Status DC Fentanyl Citrate (Fentanyl 2ml Vial) 100 mcg 1X ONCE IVP Last administered on 02/14/20at 04:55; Start 02/14/20 at 05:00; Stop 02/14/20 at 05:01; Status DC Propofol (Diprivan) 200 mg STK-MED ONCE IV ; Start 02/14/20 at 05:02; Stop 02/14/20 at 05:03; Status DC Propofol 50 ml @ As Directed STK-MED ONCE IV ; Start 02/14/20 at 05:03; Stop 02/14/20 at 05:03; Status DC Propofol (Diprivan) 200 mg 1X ONCE IV ; Start 02/14/20 at 05:30; Stop 02/14/20 at 05:31; Status DC Vancomycin HCl 250 ml @ 250 mls/hr PREOP PRN PRN IV PREOP Last administered on 02/14/20at 06:48; Start 02/14/20 at 06:00; Stop 02/15/20 at 05:59; Status DC Propofol 100 ml @ 0 mls/hr CONT PRN IV SEE I/O RECORD Last administered on 02/14/20at 11:30; Start 02/14/20 at 06:30; Stop 02/25/20 at 11:51; Status DC Fentanyl Citrate (Fentanyl 2ml Vial) 50 mcg 1X ONCE IVP Last administered on 02/14/20at 06:48; Start 02/14/20 at 07:00; Stop 02/14/20 at 07:01; Status DC Lidocaine HCl (Xylocaine-Mpf 1% 2ml Vial) 2 ml STK-MED ONCE .ROUTE ; Start 02/14/20 at 06:43; Stop 02/14/20 at 06:43; Status DC Fentanyl Citrate (Fentanyl 2ml Vial) 50 mcg 1X ONCE IVP Last administered on 02/14/20at 07:23; Start 02/14/20 at 07:30; Stop 02/14/20 at 07:31; Status DC Fentanyl Citrate 30 ml @ 2.5 mls/hr CONT PRN IV SEE PROTOCOL Last administered on 02/15/20at 09:14; Start 02/14/20 at 07:30; Stop 02/25/20 at 11:51; Status DC Fentanyl Citrate (Fentanyl 2ml Vial) 25 mcg PRN Q1HR PRN IV SEE COMMENTS; Start 02/14/20 at 07:30; Stop 02/15/20 at 18:51; Status DC Fentanyl Citrate (Fentanyl 2ml Vial) 50 mcg PRN Q1HR PRN IV SEE COMMENTS; Start 02/14/20 at 07:30; Stop 02/15/20 at 18:51; Status DC Famotidine (Pepcid Vial) 20 mg BID IVP ; Start 02/14/20 at 21:00; Stop 02/14/20 at 16:18; Status DC Potassium Chloride/Dextrose/ Sod Cl 1,000 ml @ 50 mls/hr Q20H IV Last administered on 02/24/20at 00:16; Start 02/14/20 at 11:30; Stop 02/24/20 at 12:27; Status DC Pantoprazole Sodium (PROTONIX VIAL for IV PUSH) 40 mg DAILYAC IVP Last administered on 03/01/20at 09:39; Start 02/15/20 at 07:30; Stop 03/02/20 at 09:42; Status DC Vancomycin HCl 1 gm/Sodium Chloride 250 ml @ 250 mls/hr Q12H IV Last administered on 02/17/20at 04:35; Start 02/15/20 at 17:00; Stop 02/17/20 at 07:34; Status DC Vancomycin HCl (Vanco Per Pharmacy) 1 each PRN DAILY PRN MC SEE COMMENTS; Start 02/15/20 at 16:15; Stop 02/17/20 at 07:35; Status DC Fentanyl Citrate (Fentanyl 2ml Vial) 25 mcg Q1HR ONCE IV Last administered on 02/15/20at 18:54; Start 02/15/20 at 19:00; Stop 02/15/20 at 19:01; Status DC Fentanyl Citrate (Fentanyl 2ml Vial) 25 mcg PRN Q1HR PRN IVP SEVERE PAIN 7-10 Last administered on 03/01/20at 21:06; Start 02/15/20 at 22:30 Cefazolin Sodium/ Dextrose (Ancef 2gm Premix) 2 gm STK-MED ONCE IV ; Start 02/14/20 at 07:00; Stop 02/16/20 at 06:46; Status DC Dexamethasone Sodium Phosphate (Decadron) 4 mg Q6HRS IVP Last administered on 02/22/20at 12:04; Start 02/16/20 at 12:00; Stop 02/22/20 at 15:31; Status DC Dexamethasone Sodium Phosphate (Decadron) 4 mg 1X ONCE IVP Last administered on 02/16/20at 07:57; Start 02/16/20 at 08:00; Stop 02/16/20 at 08:01; Status DC Dexmedetomidine HCl 400 mcg/ Sodium Chloride 100 ml @ 0 mls/hr CONT PRN IV PER PROTOCOL Last administered on 02/21/20at 23:32; Start 02/16/20 at 08:30; Stop 02/25/20 at 11:51; Status DC Sodium Chloride 500 ml @ 500 mls/hr 1X PRN PRN IV SEE COMMENTS; Start 02/16/20 at 08:30 Atropine Sulfate (ATROPINE 0.5mg SYRINGE) 0.5 mg PRN Q5MIN PRN IV SEE COMMENTS; Start 02/16/20 at 08:30 Levofloxacin/ Dextrose 100 ml @ 100 mls/hr Q24H IV Last administered on 02/22/20at 12:03; Start 02/16/20 at 12:00; Stop 02/22/20 at 13:37; Status DC Albuterol/ Ipratropium (Duoneb) 3 ml RTQID NEB Last administered on 03/02/20at 07:22; Start 02/16/20 at 12:00 Lorazepam (Ativan Inj) 1 mg PRN Q2HRS PRN IVP ANXIETY / AGITATION Last administered on 03/01/20at 00:56; Start 02/18/20 at 09:00; Stop 03/01/20 at 12:07; Status DC Metoprolol Tartrate (Lopressor Vial) 5 mg Q6HRS IVP Last administered on 0at 05:04; Start 02/22/20 at 10:30; Stop 03/02/20 at 09:46; Status DC Hydralazine HCl (Apresoline Inj) 10 mg Q4HRS IVP Last administered on 03/01/20at 12:25; Start 02/23/20 at 10:15 Amino Acids/ Glycerin/ Electrolytes 1,000 ml @ 80 mls/hr [id number] IV Last administered on 02/26/20at 08:32; Start 02/24/20 at 08:00; Stop 02/26/20 at 17:07; Status DC Potassium Chloride/Dextrose/ Sod Cl 1,000 ml @ 50 mls/hr Q20H IV Last administered on 02/25/20at 09:12; Start 02/25/20 at 09:00; Stop 02/25/20 at 11:13; Status DC Insulin Human Lispro (HumaLOG) 0-5 UNITS Q6HRS SQ Last administered on 02/29/20at 17:55; Start 02/25/20 at 12:00 Dextrose (Dextrose 50%-Water Syringe) 12.5 gm PRN Q15MIN PRN IV SEE COMMENTS; Start 02/25/20 at 08:45 Dextrose 1,000 ml @ 50 mls/hr Q20H IV Last administered on 02/28/20at 00:56; Start 02/25/20 at 11:15; Stop 02/28/20 at 18:45; Status DC Dextrose/Sodium Chloride 1,000 ml @ 75 mls/hr 1X ONCE IV Last administered on 02/26/20at 20:21; Start 02/26/20 at 17:15; Stop 02/27/20 at 06:34; Status DC Amino Acids/ Glycerin/ Electrolytes 1,000 ml @ 80 mls/hr [id number] IV Last administered on 03/01/20at 21:02; Start 02/26/20 at 17:15; Stop 03/02/20 at 09:46; Status DC Levofloxacin/ Dextrose 50 ml @ 50 mls/hr 1X ONCE IV Last administered on 03/01/20at 12:00; Start 03/01/20 at 12:00; Stop 03/01/20 at 12:59; Status DC Lorazepam (Ativan Inj) 0.5 mg PRN Q6HRS PRN IVP ANXIETY / AGITATION; Start 03/01/20 at 12:15 Olanzapine (ZyPREXA ZYDIS) 5 mg PRN BID PRN PO ANXIETY / AGITATION; Start 03/01/20 at 12:15 Ringer's Solution 1,000 ml @ 50 mls/hr Q20H IV Last administered on 03/01/20at 12:47; Start 03/01/20 at 12:47; Stop 03/02/20 at 00:46; Status DC Propofol (Diprivan) 200 mg STK-MED ONCE IV ; Start 03/01/20 at 14:35; Stop 03/01/20 at 14:36; Status DC Lansoprazole (Prevacid) 30 mg BIDBFRMEAL FT ; Start 03/02/20 at 16:30 Metoprolol Tartrate (Lopressor Vial) 5 mg PRN Q6HRS PRN IVP HTN or Tachy; Start 03/02/20 at 09:45 Metoprolol Tartrate (Lopressor) 50 mg BID PO ; Start 03/02/20 at 09:45 Hydralazine HCl (Apresoline) 25 mg TID PO ; Start 03/02/20 at 14:00 Active Scripts Active Reported Flomax (Tamsulosin Hcl) 0.4 Mg Cap.er.24h 1 Cap PO DAILY Vitals/I & O Vital Sign - Last 24 Hours 03/01/20 03/01/20 03/01/20 03/01/20 11:19 12:25 12:26 13:18 Pulse 67 67 B/P (MAP) 121/59 121/59 Pulse Ox 95 O2 Delivery Room Air Room Air O2 Flow Rate 3.0 03/01/20 03/01/20 03/01/20 03/01/20 13:22 14:43 15:15 15:30 Temp 99.0 98.4 99.0 98.4 Pulse 89 89 100 98 Resp 20 20 18 18 B/P (MAP) 97/63 101/64 Pulse Ox 95 95 98 94 O2 Delivery Room Air Nasal Cannula Room Air O2 Flow Rate 3.0 3.0 3.0 03/01/20 03/01/20 03/01/20 03/01/20 17:23 17:50 18:54 19:20 Temp 97.3 97.3 Pulse 111 Resp 20 20 B/P (MAP) 122/70 (87) Pulse Ox 94 94 96 O2 Delivery Room Air Room Air Room Air Room Air O2 Flow Rate 3.0 03/01/20 03/01/20 03/01/20 03/01/20 20:04 20:43 21:06 21:36 Pulse 111 Resp 20 18 B/P (MAP) 122/70 Pulse Ox 95 O2 Delivery Room Air 03/01/20 03/01/20 03/01/20 03/02/20 22:40 22:57 23:45 02:55 Temp 98.1 98.0 98.1 98.0 Pulse 103 105 105 94 Resp 20 18 B/P (MAP) 129/78 (95) 129/78 129/78 115/73 (87) Pulse Ox 96 94 O2 Delivery Room Air Room Air 03/02/20 03/02/20 03/02/20 03/02/20 04:00 05:04 07:00 07:22 Temp 99.5 99.5 Pulse 101 101 57 Resp 22 B/P (MAP) 115/73 115/73 109/65 (80) Pulse Ox 99 94 O2 Delivery Room Air Room Air 03/02/20 03/02/20 08:00 09:45 Pulse 57 57 B/P (MAP) 100/65 98/65 Intake and Output 03/01/20 03/01/20 03/02/20 15:00 23:00 07:00 Intake Total 125 ml 360 ml 1020 ml Output Total 750 ml 850 ml Balance 125 ml -390 ml 170 ml Justicifation of Admission Dx: Justifications for Admission: Justification of Admission Dx: Yes Acute Hemorrhagic Stroke: Acute Hemorrhagic Stroke TEE FRANCIS MD Mar 02, 2020 11:14
--- NOTE | 2020-03-02 11:38 | NUR ---
PATIENT OFF UNIT PER CART PER [facility].
[2020-03-02] MEDS ORDERED: hydrALAZINE 25 MG TABLET PO SCH (14:00)
[2020-03-02] MEDS ORDERED: LANSOPRAZOLE 30 MG TAB.RAP.DR FT SCH (16:30)
--- NOTE | 2020-03-15 15:50 | OP ---
DATE OF SURGERY: 02/14/2020 ADDENDUM TIME: 03:00 p.m. After the ventricular catheter was placed this morning, I had a followup CT scan obtained to evaluate the catheter position. That catheter skimmed along the posterior aspect of the right lateral ventricle and then down through the third ventricle, entering in the suprasellar cistern. I therefore came back and pulled the catheter and then tried to redirect it more medially. At the time this morning when the catheter was placed the first time the patient would localize spontaneously with his right upper extremity. His pupils were minimally reactive. At the time that the catheter was redirected, he was more heavily sedated and had nonreactive pupils and really no response. At this time now at 03:00 p.m., I am reevaluating and following, reviewing the second followup CT scan for catheter position. The catheter at this time does remain in the right lateral ventricle largely and tip of the catheter does follow down into the third ventricle, which I feel is satisfactory position. When I redirected the catheter, I did evaluate his intracranial pressure directly. The spinal fluid would drip at about 4 or 5 cm of water close to ____ not quite the top of his forehead with regard to elevation. I felt that the pressure at that time was fairly low, but the flow was excellent. While lifting and lowering the end of the catheter, I had excellent flow. Now at 03:00 p.m., he remains with ICP of 3 mmHg. I stopped his sedation and his blood pressure began to rise and then he would localize relatively briskly with his right upper extremity. At this point, I feel that the catheter is functioning and his intracranial pressure is not elevated. His neurological examination now is the same as when I initially saw him. At this point, I am going to keep everything the same and reevaluate him in the morning. I did speak with the talent acquisition director directly about him. KELLI JOY MD DR: JOEL/dean JOB#: [id number] / [id number]
== END 2020-03-02 11:40 | DRG 23 ==
LOC: ER 03:16 → 1 WEST ICU 05:02 → 2 NORTH 02-24 10:36
PROVIDERS: ADMIT Family Medicine; ATTEND Family Medicine
PROC: 5A1945Z Respiratory Ventilation, 24-96 Consecutive Hours (ICD-10-PCS; principal; 2020-02-14)
PROC: 009630Z Drainage of Cerebral Ventricle with Drainage Device, Percutaneous Approach (ICD-10-PCS; 2020-02-14)
PROC: 0BH17EZ Insertion of Endotracheal Airway into Trachea, Via Natural or Artificial Opening (ICD-10-PCS; 2020-02-14)
PROC: 03HY32Z Insertion of Monitoring Device into Upper Artery, Percutaneous Approach (ICD-10-PCS; 2020-02-14)
PROC: 5A09357 Assistance with Respiratory Ventilation, Less than 24 Consecutive Hours, Continuous Positive Airway Pressure (ICD-10-PCS; 2020-02-16)
PROC: 5A09457 Assistance with Respiratory Ventilation, 24-96 Consecutive Hours, Continuous Positive Airway Pressure (ICD-10-PCS; 2020-02-17)
PROC: 0DH63UZ Insertion of Feeding Device into Stomach, Percutaneous Approach (ICD-10-PCS; 2020-03-01)
DX: I61.5 Nontraumatic intracerebral hemorrhage, intraventricular (principal); J96.01 Acute respiratory failure with hypoxia; G93.40 Encephalopathy, unspecified; E87.0 Hyperosmolality and hypernatremia; G81.94 Hemiplegia, unspecified affecting left nondominant side; G91.9 Hydrocephalus, unspecified; I16.9 Hypertensive crisis, unspecified; J98.11 Atelectasis; N17.9 Acute kidney failure, unspecified; R41.4 Neurologic neglect syndrome; E78.00 Pure hypercholesterolemia, unspecified; E78.5 Hyperlipidemia, unspecified; E86.9 Volume depletion, unspecified; F17.210 Nicotine dependence, cigarettes, uncomplicated; I10 Essential (primary) hypertension; K21.9 Gastro-esophageal reflux disease without esophagitis; N40.0 Benign prostatic hyperplasia without lower urinary tract symptoms; R13.13 Dysphagia, pharyngeal phase; R13.19 Other dysphagia; Z66 Do not resuscitate; Z82.49 Family history of ischemic heart disease and other diseases of the circulatory system; Z82.5 Family history of asthma and other chronic lower respiratory diseases; Z83.49 Family history of other endocrine, nutritional and metabolic diseases; Z86.73 Personal history of transient ischemic attack (TIA), and cerebral infarction without residual deficits; Z88.0 Allergy status to penicillin; Z98.2 Presence of cerebrospinal fluid drainage device; Z20.828 Contact with and (suspected) exposure to other viral communicable diseases
CPT/HCPCS: 31500; 36415; 36556; 36600; 43246; 51702; 70450; 71045; 74018; 80048; 80053; 81001; 82805; 82962; 83735; 84484; 85007; 85025; 85027; 85610; 93005; 94002; 94003; 94640; 94660; 94760; 96374; 96375; 99285; C9113; J0360; J0690; J1100; J1815; J1956; J2060; J2405; J2704; J3010; J3370; J3480; J3490; J7042; J7050; J7060; J7120; 92526-GN; 92610-GN; 97110-GO; 97110-GP; 97530-GO; 97530-GP; 97535-GO; G0378; J7030; U0003-CS

== ENCOUNTER 2020-09-24 16:59 | Emergency (ER) | payer MEDICARE, OTHER ==
[~2020-09-24] VITALS: Ht 172.7 cm; Wt 85.0 kg
[~2020-09-24 16:59] MED LIST: TAMS0.4C97 PO
--- NOTE | 2020-09-24 19:27 | PHYS DOC ---
Past Medical History Past Medical History: CVA, High Cholesterol (MAURICE CADET CHEMICAL PLANT TECHNICAL DIRECTOR) Past Surgical History: Other Additional Past Surgical Histo: HERNIA REPAIR (MAURICE CADET APRN) Smoking Status: Current Every Day Smoker Alcohol Use: None (MAURICE CADET APRN) General Adult EDM: Chief Complaint: GTUBE REPLACEMENT/MALFUNCTION HPI: HPI: Patient is a 65 year old male who presents with here for [facility] by EMS due to patient needing his G-tube removed. Patient had had a stroke with residual left-sided deficit but is now taking oral food and fluids and no longer needs the G-tube. Patient nursing staff and medical doctor in the correction could not get it removed. Patient has no other complaints. He denies any pain, vomiting, nausea, fever, chest pain, shortness of air. (MAURICE CADET CHEMICAL PLANT TECHNICAL DIRECTOR) Review of Systems: Review of Systems: Constitutional: Denies fever or chills. [] Eyes: Denies change in visual acuity. [] HENT: Denies nasal congestion or sore throat. [] Respiratory: Denies cough or shortness of breath. [] Cardiovascular: Denies chest pain or edema. [] GI: Denies abdominal pain, nausea, vomiting, bloody stools or diarrhea. + G- tube removal [] : Denies dysuria. [] Musculoskeletal: Denies back pain or joint pain. [] Integument: Denies rash. [] Neurologic: Denies headache, focal weakness or sensory changes. [] Endocrine: Denies polyuria or polydipsia. [] Lymphatic: Denies swollen glands. [] Psychiatric: Denies depression or anxiety. [] (MAURICE CADET CHEMICAL PLANT TECHNICAL DIRECTOR) Heart Score: C/O Chest Pain: No Risk Factors: Risk Factors: DM, Current or recent (<one month) smoker, HTN, HLP, family history of CAD, obesity. Risk Scores: Score 0 - 3: 2.5% MACE over next 6 weeks - Discharge Home Score 4 - 6: 20.3% MACE over next 6 weeks - Admit for Clinical Observation Score 7 - 10: 72.7% MACE over next 6 weeks - Early Invasive Strategies (MAURICE CADET CHEMICAL PLANT TECHNICAL DIRECTOR) Allergies: Allergies: Allergies Coded Allergies Type Severity Reaction Last Updated Verified Penicillins Allergy Severe Rash 03/01/20 Yes (MAURICE CADET APRN) Physical Exam: PE: Constitutional: Well developed, well nourished, no acute distress, non-toxic appearance. [] HENT: Normocephalic, atraumatic, bilateral external ears normal, oropharynx moist, no oral exudates, nose normal. [] Eyes: PERRLA, EOMI, conjunctiva normal, no discharge. [] Neck: Normal range of motion, no tenderness, supple, no stridor. [] Cardiovascular:Heart rate regular rhythm, no murmur [] Lungs & Thorax: Bilateral breath sounds clear to auscultation [] Abdomen: Bowel sounds normal, soft, no tenderness, no masses, no pulsatile masses. G-tube intact [] Skin: Warm, dry, no erythema, no rash. [] Back: No tenderness, no CVA tenderness. [] Extremities: No tenderness, no cyanosis, no clubbing, ROM intact, no edema. [] Neurologic: Alert and oriented X 3, normal motor function, normal sensory function, no focal deficits noted. [] Psychologic: Affect normal, judgement normal, mood normal. [] (MAURICE CADET APRN) Current Patient Data: Vital Signs: Vital Signs Date Time Temp Pulse Resp B/P (MAP) Pulse Ox O2 Delivery O2 Flow Rate FiO2 09/24/20 17:12 97.9 58 16 129/60 (83) 96 Room Air 97.9 (MAURICE CADET APRN) EKG: EKG: [] (MAURICE CADET APRN) Radiology/Procedures: Radiology/Procedures: [] (MAURICE CADET APRN) Course & Med Decision Making: Course & Med Decision Making Pertinent Labs and Imaging studies reviewed. (See chart for details) See HPI. Alert and oriented x4. Speaks in full clear sentences. Abdomen is soft and nontender. Patient denies any tenderness at the site. There is no signs of infection at the site. No drainage. I have spoken to Dr. Nicholas and he states if I just cut the tube that the balloon should deflate and water should come out and then I should be able to pull the G-tube out. Dr Lam was able to get the G tube out and patient tolerated well. It is covered with a non adherant and gauze. No bleeding or drainage at this time. [] (MAURICE CADET APRN) Dragon Disclaimer: Dragon Disclaimer: This electronic medical record was generated, in whole or in part, using a voice recognition dictation system. (MAURICE CADET APRN) Departure Departure Impression: Primary Impression: GI problem Disposition: 01 DC HOME SELF CARE/HOMELESS Condition: STABLE Referrals: ANALY BECKFORD MD (PCP) Patient Instructions: Medical Screening Exam Additional Instructions: Follow-up with primary care physician or GI doctor if you need to. Watch for signs of infection. Attending Signature Attending Signature I have reviewed the PA/BUSINESS SYSTEMS ARCHITECT's note and plan of care. I was available for consultation as needed during the patient's visit in the emergency department. I agree with the clinical impression, plan, and disposition. (LAST LAM DO) MAURICE CADET APRN Sep 24, 2020 19:27 LAST LAM DO Sep 25, 2020 01:32
[2020-09-24 21:14] VITALS: BP 181/84
== END 2020-09-24 21:26 | disposition home or self-care (01) ==
LOC: ER 16:59
DX: K94.23 Gastrostomy malfunction (principal); Z88.0 Allergy status to penicillin; E78.00 Pure hypercholesterolemia, unspecified; F17.200 Nicotine dependence, unspecified, uncomplicated; Z86.73 Personal history of transient ischemic attack (TIA), and cerebral infarction without residual deficits; Z98.890 Other specified postprocedural states
CPT/HCPCS: 99285